=== PATIENT | female | born 1965 | race Caucasian/White ===

== ENCOUNTER → 2016-04-28 | Outpatient (CLI) | payer MEDICARE, MEDICAID ==
[~2016-04-28] MED LIST: /ESCI20TA OR; /INSULEV SC; ABIL10TA OR; ABIL20TA2 OR; ACTO30TA OR; ACTO45TA6 PO; ALBU17IN2 IN; ALBU83IN INH; ASPI325T OR; ASPI81TA3 OR; ATEN25TA PO; BAYE1TAB PO; CALC600T7 PO; CRES40TA OR; DRIS50002 PO; FLEXERIL PO; FLON0.054; GLUC1000 OR; GLUC850T OR; HUMA100I3 SC; HUMALOG INSULIN SC; HUMALOG SC; HUMALOG SUBQ; HYDR25TA6 OR; IBUP800T OR; INSUH10VL INJ; INSUHUMDS SC; K-TA10TA2 PO; KLON1TAB OR; KLOR1TAB69 PO; LAMI25TA OR; LASI20TA OR; LASI20TA PO; LATU1TAB PO; LEXA1TAB2 PO; LIDO1OIN2 TOP; LISI20TA5 OR; LISI40TA OR; MAGN400T5 PO; MAGN500T2 OR; METF1000 PO; OXYB5TA PO; PLAV75TA2 OR; PRAV80TA PO; PRIL40CA PO; RISP2TAB12 OR; RISP3TAB16 OR; TOPA100T8 PO; TRAZ50TA OR; TRIC145T19 OR; TYLE325T5 PO; VALT500T OR; VESI5TAB PO; VICO5TAB16 PO; VICT18IN SC; VITA-121 PO; ZOCO40TA OR; ZOFR20TA PO; ZOLO100T OR; ZYRT10CA PO; [UNRECOGNIZED DRUG - OTHER] INH; levemir SUBQ; magnesium oxide PO; norco PO; vesicare PO
== END ==
LOC: M PAIN 10:40
PROVIDERS: ATTEND Nurse Practitioner Family
DX: M54.42 Lumbago with sciatica, left side (principal); M54.6 Pain in thoracic spine; M53.3 Sacrococcygeal disorders, not elsewhere classified; Z79.891 Long term (current) use of opiate analgesic; Z79.899 Other long term (current) drug therapy; Z79.82 Long term (current) use of aspirin; Z79.84 Long term (current) use of oral hypoglycemic drugs; Z79.4 Long term (current) use of insulin; E11.9 Type 2 diabetes mellitus without complications; E78.5 Hyperlipidemia, unspecified; F32.9 Major depressive disorder, single episode, unspecified; Z86.73 Personal history of transient ischemic attack (TIA), and cerebral infarction without residual deficits; N18.3 Chronic kidney disease, stage 3 (moderate); I12.9 Hypertensive chronic kidney disease with stage 1 through stage 4 chronic kidney disease, or unspecified chronic kidney disease

== ENCOUNTER → 2016-05-10 | Outpatient (REF) | payer MEDICARE, MEDICAID ==
[~2016-05-10] MED LIST changes: +ACET30TAB PO; +COLA100C PO
== END ==
LOC: M SMT 13:21
PROVIDERS: ATTEND Nurse Practitioner Family
DX: N39.3 Stress incontinence (female) (male) (principal)
CPT/HCPCS: 51798; 81001; 87088; 87186; G0463

== ENCOUNTER → 2016-05-13 | Outpatient (REF) | payer MEDICARE, MEDICAID ==
[~2016-05-13] MED LIST changes: -ACET30TAB PO; -COLA100C PO
[2016-05-13 11:43] LABS: ALBUMIN 3.7 GM/DL (3.2-5.2); ALBUMIN/GLOBULIN RATIO 1.03 (1.00-1.93); BILIRUBIN,TOTAL 0.3 MG/DL (0.2-1.0); CALCIUM LEVEL 9.1 MG/DL (8.5-10.1); CREATININE FOR GFR 1.44 MG/DL (0.55-1.02); GLOMERULAR FILTRATION RATE 40.9 (>51); POTASSIUM SERUM 4.3 MEQ/L (3.5-5.1); TOTAL PROTEIN 7.3 GM/DL (6.4-8.2)
== END ==
LOC: M SFHCPLAZ 11:11
PROVIDERS: ATTEND Family Medicine
DX: E78.2 Mixed hyperlipidemia (principal); E55.9 Vitamin D deficiency, unspecified; I10 Essential (primary) hypertension

== ENCOUNTER → 2016-05-16 | Outpatient (CLI) | payer MEDICARE, MEDICAID ==
[~2016-05-16] MED LIST changes: +ACET30TAB PO; +COLA100C PO
--- NOTE | 2016-05-16 08:55 | REP ---
Clinical: Hypertension and chronic medical renal disease. Technique: Farrell scale and color Doppler evaluation of the kidneys and renal vasculature using curved array transducer. Findings: The kidneys are essentially normal in contour size and echogenicity and reniform shape without hydronephrosis, nephrolithiasis, cystic or renal mass lesion. Intrarenal vascular calcifications are identified. Right kidney measures 10.4 x 6.4 x 5.2 cm . Left kidney measures 9.8 x 6.2 x 6.6 cm . Bladder is incompletely distended and grossly normal in appearance. Prevoid volume equals 195 ml. Postvoid volume equals 30 ml. Postvoid residual equals 15%. Color Doppler evaluation is severely limited due to patient body habitus and involuntary respiratory motion during examination. The renal vasculature demonstrates normal arterial wave patterns, and velocities. Aortic velocity and subsequent renal aortic ratios were not obtainable. Intrarenal resistive indices are mildly elevated and suggests small vessel disease. Right Kidney: Peak arterial velocity: 120 cm/sec . Renal aortic ratio: None obtainable . Resistive indices: 0.7 . Acceleration times: 0.03 - 0.04 . Left kidney: Peak arterial velocity: 88.1 cm/sec . Renal aortic ratio: Not obtainable . Resistive indices: 0.7 - 0.8 . Acceleration times: 0.02 - 0.04 . Impression: 1. Normal appearance of the bilateral kidneys. 2. Findings to suggest intra vascular calcifications and small vessel renal disease. 3. Evaluation for renal arterial stenosis is limited and CTA or MRA evaluation may be of value. Signed by Shukri Burris MD 05/16/2016 08:46 A
== END ==
LOC: M RAD 07:15
PROVIDERS: ATTEND Internal Medicine Nephrology
DX: E11.22 Type 2 diabetes mellitus with diabetic chronic kidney disease (principal); I12.9 Hypertensive chronic kidney disease with stage 1 through stage 4 chronic kidney disease, or unspecified chronic kidney disease; N18.3 Chronic kidney disease, stage 3 (moderate); E66.01 Morbid (severe) obesity due to excess calories; N39.3 Stress incontinence (female) (male); F25.1 Schizoaffective disorder, depressive type; F43.10 Post-traumatic stress disorder, unspecified

== ENCOUNTER → 2016-05-20 | Outpatient (CLI) | payer MEDICARE, MEDICAID ==
--- NOTE | 2016-05-24 01:27 | ECWPNPC ---
PATIENT NAME: PRUDENCIO SHAHID : 1965 GENDER: FEMALE VISIT DATE: 05/20/2016 DISCHARGE DATE: 05/20/16 1038 VISIT LOCKED DATE TIME: PHYSICIAN: YULISSA STAUFFER RESOURCE: YULISSA STAUFFER REASON FOR APPOINTMENT 1. LBP HISTORY OF PRESENT ILLNESS GENERAL: HERE FOR F/U OF CHRONIC LBP AND THORACIC BACK PAIN .RATING PAIN VAS 6/10.REPORTING AGGREVATION IN LBP R>L PAST 3 WEEKS.REPORTING NEW ONSET OF LEFT LEG/CALF PAIN AND PARATHESIAS.STATES SHE HAS BEEN DOING SOME NEW EXCERSISES FOR HER HEEL SPURS AND SHE THINK THIS MAY HAVE AGGREVATED PAIN.REVIEWED MRI L/S SPINE 11-06-14.THIS IS SHOWING MULTI LEVEL FACET ARTHROPATHY.DENIES BOWEL OR BLADDER INCONTINENECE.REPORTS RECENT 5# WEIGHT LOSS DUE TO DIET CONTROL AND INCREASE IN EXCERSISE. HISTORY OF PRESENT ILLNESS: PAIN THE PATIENT DESCRIBES THE PAIN... FALL RISK SCREENING: SCREENING :NO FALLS IN THE PAST YEAR CURRENT MEDICATIONS TAKING FENOFIBRATE 48 MG TABLET 1 TABLET ORALLY ONCE A DAY TAKING PRAVASTATIN SODIUM 40 MG TABLET 1 TABLET ORALLY ONCE A DAY TAKING CIPROFLOXACIN HCL 250 MG TABLET 1 TABLET ORALLY EVERY 12 HRS TAKING LAMICTAL 100 MG TABLET 1 TABLET ORALLY TWICE DAILY TAKING LATUDA 80 MG TABLET 1 TABLET WITH FOOD ORALLY ONCE A DAY TAKING ESCITALOPRAM OXALATE 20 MG TABLET 1 TABLET ORALLY ONCE A DAY TAKING HUMALOG 100 UNIT/ML SOLUTION SLIDING SCALE, IF BLOOD SUGAR IS 150 PT TAKES 10 UNITS, IF IT IS HIGHER THAN THAT 12 UNITS SUBCUTANEOUS SLIDING SCALE, MDD 24 UNITS TAKING POTASSIUM CHLORIDE 10 10 MEQ TABLET 1 TABLET ORAL ONCE A DAY TAKING MAGNESIUM OXIDE 400 MG TABLET 1 TABLET ORALLY ONCE A DAY TAKING TOPAMAX 100 100MG TABLET 1 TAB(S) ORALLY TWICE A DAY (MIRA) TAKING ALBUTEROL SULFATE (2.5 MG/3ML) 0.083% NEBULIZATION SOLUTION 3 ML INHALATION QID PRN TAKING LEVEMIR FLEXPEN 100 UNIT/ML SOLUTION 16 UNITS SUBCUTANEOUS TWICE A DAY TAKING ACTOS 45MG TABLET 1 TABLET ORALLY ONCE A DAY TAKING LISINOPRIL 20 MG TABLET 1 TABLET ORALLY ONCE A DAY TAKING PLAVIX 75 MG TABLET 1 TABLET ORALLY ONCE A DAY TAKING COLACE 100 MG CAPSULE 1 CAPSULE NEEDED ORALLY ONCE A DAY TAKING VICTOZA 18 MG/3ML SOLUTION PEN-INJECTOR 1.8 ML SUBCUTANEOUS ONCE A DAY TAKING ZYRTEC ALLERGY 10 MG TABLET 1 TABLET NEEDED ORALLY ONCE A DAY TAKING VITAMIN D 1000 UNIT TABLET 1 CAPSULE P.O. TWICE A DAY TAKING CLOBETASOL PROPIONATE 0.05 % CREAM 1 APPLICATION TO AFFECTED AREA EXTERNALLY TWICE A DAY NEEDED TAKING FLONASE 50 MCG/ACT SUSPENSION 1 SPRAY IN EACH NOSTRIL NASALLY ONCE A DAY TAKING AMLODIPINE BESYLATE 2.5 MG TABLET 1 TABLET ORALLY ONCE A DAY TAKING ATENOLOL 50 MG TABLET 1 TABLET ORALLY ONCE A DAY TAKING LASIX 20 MGS TABLET 1 TABLET ORALLY ONCE A DAY TAKING PRILOSEC 40 MG CAPSULE DELAYED RELEASE 1 CAPSULE ORALLY ONCE A DAY TAKING ESCITALOPRAM OXALATE 5 MG TABLET 1 TABLET ORALLY TAKES WITH 20 MG TAB FOR A TOTAL OF 25MG DAILY, NOTES: 02/02/16 0900 TAKING CALCIUM 600 + D 600-400 MG-UNIT TABLET 1 TABLET ORALLY ONCE A DAY TAKING TYLENOL/CODEINE #3 300-30 MG TABLET 1 ORALLY EVERY 6 HRS PRN PAIN MDD3 TAKING LIDOCAINE 5 % OINTMENT 1 APPLICATION TO AFFECTED AREA NEEDED EXTERNALLY THREE TIMES A DAY, NOTES: INSURANCE WILL NOT BE COVERING TAKING DRISDOL 50,000 UNITS TABLET 1 TAB(S) ORAL TWICE A WEEK NOT-TAKING ASPIRIN 325 MG TABLET 1 TABLET ORALLY ONCE A DAY NOT-TAKING ZOFRAN 4 MG TABLET 1 TAB(S) ORALLY TWICE A DAY NEEDED DISCONTINUED OXYBUTYNIN CHLORIDE 10 MG TABLET EXTENDED RELEASE 24 HOUR 1 TABLET ORALLY ONCE A DAY DISCONTINUED FENOFIBRATE 145 MG TABLET 1 TABLET ORALLY ONCE A DAY DISCONTINUED ATORVASTATIN CALCIUM 40 MG TABLET 1 TABLET ORALLY ONCE A DAY DISCONTINUED METFORMIN HCL 1000 MG TABLET 1 TABLET WITH MEALS ORALLY TWICE A DAY UNKNOWN INSULIN SYRINGE-NEEDLE U-100 27G X 1/2 MISCELLANEOUS DX 250.00 SUBCUTANEOUSLY BID UNKNOWN MAY HAVE . .. DIRECTED RUSSEL DX: LEFT SCIATICA, LUMBAR PAIN, STOP DATE 03/30/2023 UNKNOWN PHYSICAL THERAPY EVALUATE AND TREAT PHYSICAL THERAPY DIRECTED DX: CERVALGIA, TRAPZEZIUS PAIN, SCAPULAR DYSKENESIA 1-3X/WEEK MEDICATION LIST REVIEWED AND RECONCILED WITH THE PATIENT PAST MEDICAL HISTORY HYPERLIPIDEMIA DIABETES MELLITUS - WITH NON-PROLIFERATIVE RETINOPATHY LEFT EYE PER CENTER FOR SIGHT 06/2013. 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) CKD STAGE 3 HTN SLIGHTLY REDUCED KIDNEY FUNCTION ALLERGIES SEASONAL: NASAL CONGESTION: ALLERGY SOCIAL HISTORY GENERAL: TOBACCO USE ARE YOU A:NONSMOKER LEARNING BARRIERS / SPECIAL NEEDS ORIENTED TO PLAN OF CARE: PATIENT, PAIN MANAGEMENT PATIENT, ORIENTED TO PLAN OF CARE: PATIENT, PAIN MANAGEMENT PATIENT. NEW PATIENT PAIN DIARY TODAY'S VISITNOTES FROM 0-10, WHAT LEVEL IS YOUR PAIN TODAY?0 PAIN CLINIC PFS, CLERGY, PUBLIC HEALTH REFERRALS PFS REFERRAL NEEDED?NO CLERGY REFERRAL NEEDED?NO PUBLIC HEALTH REFERRAL NEEDED?NO WAS THE PROVIDER NOTIFIED OF ANY PERTINENT INFO?NO PFS REFERRAL NEEDED?NO CLERGY REFERRAL NEEDED?NO PUBLIC HEALTH REFERRAL NEEDED?NO WAS THE PROVIDER NOTIFIED OF ANY PERTINENT INFO?NO REVIEW OF SYSTEMS CONSTITUTIONAL: ANY CHANGE IN YOUR MEDICAL CONDITION? YES CKD STAGE 3 . CHILLS NO . FEVER NO . INFECTION: DO YOU HAVE NEW INFECTIONS? NO . DO YOU HAVE HISTORY OF MRSA? NO . MUSCULOSKELETAL: ANY NEW PATTERNS OF PAIN OR NUMBNESS? YES PT NOTES NUMBNESS AND DISCOMFORT OUTER LEFT LEG X 1WEEK . GASTROENTEROLOGY: ANY NEW CHANGE IN BOWEL CONTROL? NO . GENITOURINARY: ANY NEW CHANGE IN BLADDER CONTROL? NO . IS THERE A CHANCE YOU COULD BE ? NO . HEMATOLOGY/LYMPH: DO YOU TAKE ANY BLOOD THINNERS? (FOR EXAMPLE- COUMADIN, PLAVIX, AGGRENOX, PLATEL, PRADAXA, OR XARELTO) YES PLAVIX . WHEN WAS YOUR LAST DOSE? DATE: TIME: . NEUROLOGY: HAVE YOU FALLEN IN THE PAST 6 MONTHS? NO . ANY NEW EXTREMITY NUMBNESS OR WEAKNESS? NO . CARDIOLOGY: DO YOU HAVE A PACEMAKER OR DEFIBRILLATOR? NO . RESPIRATORY: HAVE YOU BEEN SICK IN THE PAST WEEK? NO . FEVER NO . FLU LIKE SYMPTOMS? NO . COUGH NO . INTEGUMENTARY: DO YOU HAVE ANY RASHES OR OPEN SORES? NO . ALLERGIC/IMMUNO: ARE YOU ALLERGIC TO SHELLFISH OR IV DYE? NO . ANY NEW ALLERGIES? NO . PSYCHIATRIC: DO YOU HAVE THOUGHTS OF HURTING YOURSELF OR SOMEONE ELSE? NO . ARE YOU ABUSED, NEGLECTED, OR IN AN UNSAFE ENVIRONMENT? NO . ENDOCRINOLOGY: ARE YOU DIABETIC? YES . OTHER: DO YOU NEED ANY PRESCRIPTIONS? NO . IF YES, PLEASE LIST: ____ . ANY NEW PROBLEMS WITH YOUR MEDICATIONS? NO . WHEN DID YOU LAST EAT? ____ . WHEN DID YOU LAST DRINK? ____ . WHAT DID YOU LAST DRINK? ____ . NAME OF PERSON DRIVING YOU HOME? ____ . DO YOU HAVE ANY OTHER QUESTIONS OR CONCERNS YES ? INJECTION . REVIEWED BY: PROVIDER: YULISSA RASHID . VITAL SIGNS WT 239.6 LBS, HT 64.25 IN, BMI 40.80 INDEX, BP 160/90 MM HG, HR 80 /MIN, RR 16 /MIN, TEMP 98.4 F, OXYGEN SAT % 95%, NA INITIALS SC 09:27, REVIEWED BY: MLF. EXAMINATION GENERAL EXAMINATION: LUNGS:LUNG SOUNDS ARE CLEAR. HEART:HEART RATE REGULAR. MUSCULOSKELETAL:*, MUSCLE STRENGTH TESTING 5/5 BILATERAL, PALPATION: POSITIVE FOR PAIN OVER L/S SPINE. POSITIVE FOR PAIN OVER L/S PARSPINALS.POSITIVE FOR PAIN OVER BILAT. SIJ, PALPATION: POSITIVE FOR PAIN OVER RIGHT MID THRACIC FACETS.LARGE 6INCH CIRCULAR WELL HEALED INCISON UPPER THORACIC.. DIAGNOSTIC DATA-REVIEWED THORACIC MRI AND L/S MRI. ASSESSMENTS CHRONIC BILATERAL LOW BACK PAIN WITH BILATERAL SCIATICA - M54.42 (PRIMARY) CHRONIC MIDLINE THORACIC BACK PAIN - M54.6 SACROILIAC JOINT DYSFUNCTION OF RIGHT SIDE - M53.3 TREATMENT CHRONIC BILATERAL LOW BACK PAIN WITH BILATERAL SCIATICA LUMBAR FACET THERAPEUTIC NOTES: STOP PLAVIX X 7 DAYS AND SCHEDULE DAY 8,FACET JOINT INJECTION MATERIAL WAS PRINTED,FACET JOINT INJECTION: YOUR EXPERIENCE MATERIAL WAS PRINTED. PROCEDURE CODES FA211 ESTABILISHED PATIENT [facility] FACILITY CHARGE Q7698 PAIN ASSESS POS TOOL F/U PLAN DOC G8427 DOC MEDS VERIFIED W/PT OR RE G1210 BP SCR PRFRM RCMDD DEFIND SCR INTVL 3016F PT SCRND UNHLTHY OH USE 1124F ACP DISCUSS-NO DSCNMKR DOCD 1036F TOBACCO NON-USER 0518F FALL PLAN OF CARE DOCD G8417 BMI >=30 CALCUATE W/FOLLOWUP 3288F FALL RISK ASSESSMENT DOCD DISPOSITION & COMMUNICATION FOLLOW UP 2WK POST PROC. (REASON: BILAT.L4/5-L5/S1 THERAPEUTIC FACET BLOCK) ELECTRONICALLY SIGNED BY GAY ZUNIGA ON 05/23/2016 AT 01:35 PM EST DISCLAIMER : THIS IS A VISIT SUMMARY EXTRACTED FROM THE [employer] CHART. IT IS NOT A COPY OF THE [employer] PROGRESS NOTE. MARYLOU
== END ==
LOC: M PAIN 09:20
PROVIDERS: ATTEND Nurse Practitioner Family
DX: M54.42 Lumbago with sciatica, left side (principal); M54.6 Pain in thoracic spine; M53.3 Sacrococcygeal disorders, not elsewhere classified; G89.29 Other chronic pain; E78.2 Mixed hyperlipidemia; I12.9 Hypertensive chronic kidney disease with stage 1 through stage 4 chronic kidney disease, or unspecified chronic kidney disease; E11.22 Type 2 diabetes mellitus with diabetic chronic kidney disease; N18.3 Chronic kidney disease, stage 3 (moderate); E55.9 Vitamin D deficiency, unspecified

== ENCOUNTER → 2016-05-24 | Outpatient (RCR) | payer MEDICARE, MEDICAID | LOC: M PT 08:18 | PROVIDERS: ATTEND Physician Assistant | DX: Z51.89 Encounter for other specified aftercare (principal); M54.2 Cervicalgia; G24.9 Dystonia, unspecified | CPT/HCPCS: 97162; G8978; G8979 ==

== ENCOUNTER 2016-05-27 09:44 | Emergency (ER) | payer MEDICARE, MEDICAID ==
[~2016-05-27] VITALS: Ht 152.4 cm; Wt 109.0 kg
[~2016-05-27 09:44] MED LIST changes: -ACET30TAB PO; -COLA100C PO
[2016-05-27] MEDS ORDERED: ACET30TAB PO (10:06)
[2016-05-27] MEDS ORDERED: COLA100C PO (10:06)
[2016-05-27] MEDS ORDERED: ONDANSETRON 4MG/2ML VIAL (J2405) IV ONE (11:30)
[2016-05-27] MEDS ORDERED: MORPHINE 4 MG/ML 1ML SYRINGE IV ONE (11:30)
[2016-05-27] MEDS ORDERED: SODIUM CHLORIDE 0.9% 1000 ML IV SCH (11:30)
[2016-05-27 11:59] LABS: BASO # 0.1 K/mm3 (0.0-0.2); BASO % 0.6 % (0.0-1.0); CALCIUM LEVEL 9.1 MG/DL (8.5-10.1); CREATININE FOR GFR 1.3 MG/DL (0.55-1.02); EOS # 0.2 K/mm3 (0.0-0.50); EOS % 2.8 % (0.0-3.0); LARGE UNSTAINED CELL # 0.1 K/mm3 (0.0-0.4); LYMPH # 1.8 K/mm3 (1.5-4.5); LYMPH % 20.1 % (24.0-44.0); MEAN CORPUSCULAR HEMOGLOBIN 27.5 pg (27.0-33.0); MEAN CORPUSCULAR VOLUME 83.4 fl (80.0-96.0); MONO # 0.3 K/mm3 (0.0-0.8); MONO % 3.3 % (0.0-5.0); NEUTROPHILS # 6.3 K/mm3 (1.8-7.7); NEUTROPHILS % 72.2 % (36.0-66.0); PLATELET COUNT, AUTOMATED 276 k/mm3 (150-450); POTASSIUM SERUM 3.9 MEQ/L (3.5-5.1); RED CELL DISTRIBUTION WIDTH 13.1 % (11.5-14.5); WHITE BLOOD COUNT 8.7 K/mm3 (4.0-10.0)
[2016-05-27 12:03] LABS: ALBUMIN 3.7 GM/DL (3.2-5.2); ALKALINE PHOSPHATASE 113 U/L (45-117); ALT/SGPT 19 U/L (12-78); AST/SGOT 16 U/L (15-37); BILIRUBIN,DIRECT < 0.1 MG/DL (0.0-0.2); BILIRUBIN,TOTAL 0.3 MG/DL (0.2-1.0); TOTAL PROTEIN 7.8 GM/DL (6.4-8.2)
[2016-05-27] MEDS ORDERED: ISOVUE-370 76% 100ML VIAL (Q9967) As Ordered ONE (12:07)
--- NOTE | 2016-05-27 14:15 | REP ---
CT ABDOMEN/PELVIS WITH IV CONTRAST: TECHNIQUE: Axial contrast enhanced images from the lung bases to the pubic symphysis using 100 mL Isovue 370 intravenous contrast material with multiplanar reformations. Visualized lung bases demonstrate no consolidating infiltrate. The liver demonstrates no evidence of a suspicious mass. There is no biliary dilatation. There appears to be a small, subcentimeter gallstone in the dependent portion of the gallbladder. The spleen, adrenals, pancreas, and kidneys are unremarkable in appearance. There are moderate atherosclerotic calcifications of the abdominal aorta without aneurysm. There is no adenopathy. There is no free air or free fluid. There is no bowel wall thickening. There is no evidence of appendicitis. There is no pelvic mass. There are degenerative changes of the spine. IMPRESSION: Subcentimeter gallstone in the gallbladder. No acute finding. Signed by Michael Farrell MD 05/27/2016 08:33 P
[2016-05-27 14:20] VITALS: BP 177/104
--- NOTE | 2016-05-27 14:41 | REP ---
RIGHT UPPER QUADRANT ULTRASOUND: Real-time sonographic evaluation of right upper quadrant performed. There is a small gallstone in the neck of the gallbladder. There is no gallbladder wall thickening. There is no pericholecystic fluid. There is no intrahepatic or extrahepatic biliary dilatation, common bile duct measuring 3 mm in diameter. Survey images of the liver demonstrate somewhat heterogeneous echotexture suggesting some degree of fibrofatty infiltration. No gross liver or pancreatic mass is seen. Pancreas is not well seen due to overlying bowel gas. Right kidney demonstrates no hydronephrosis or nephrolithiasis with normal size at 10.7 cm in length. IMPRESSION: Subcentimeter gallstone seen in the neck of the gallbladder. No gallbladder wall thickening or pericholecystic fluid or biliary dilatation. Signed by Michael Farrell MD 05/27/2016 08:34 P
== END 2016-05-27 14:31 | disposition home or self-care (01) ==
LOC: M ED 10:48
DX: K80.20 Calculus of gallbladder without cholecystitis without obstruction (principal); R10.11 Right upper quadrant pain; R10.13 Epigastric pain; I10 Essential (primary) hypertension; J45.909 Unspecified asthma, uncomplicated; G43.909 Migraine, unspecified, not intractable, without status migrainosus; E78.9 Disorder of lipoprotein metabolism, unspecified; Z86.73 Personal history of transient ischemic attack (TIA), and cerebral infarction without residual deficits; Z87.891 Personal history of nicotine dependence
CPT/HCPCS: 36415; 74177; 76705; 80048; 80076; 81001; 83690; 85025; 96374; 96375; 99283; J2405; Q9967

== ENCOUNTER → 2016-06-08 | Outpatient (REF) | payer MEDICARE, MEDICAID ==
[~2016-06-08] MED LIST changes: +ACET30TAB PO; +COLA100C PO
== END ==
LOC: M SMT 11:48
PROVIDERS: ATTEND Nurse Practitioner Family
DX: N39.3 Stress incontinence (female) (male) (principal); Z87.440 Personal history of urinary (tract) infections
CPT/HCPCS: 51798; 87086; G0463

== ENCOUNTER → 2016-06-14 | Outpatient (CLI) | payer MEDICARE, MEDICAID ==
[~2016-06-14] MED LIST changes: +BUPIVACAINE HCL 0.25% 30 ML VIAL As Ordered ONE; +ISOVUE-M 300 61% 15ML VIAL (Q9967) As Ordered ONE; +LIDOCAINE 1% SDV INJ 30 ML VIAL As Ordered ONE; +TRIAMCINOLONE ACETONIDE SUSP 40 MG/ML VIAL (J3301) As Ordered ONE; +diazePAM 5 MG TAB As Ordered ONE; +oxyCODONE 5MG TAB As Ordered ONE
--- NOTE | 2016-06-14 13:04 | REP ---
Partial lumbar spine series: Four views. History: Facet block for pain. 57 seconds of fluoroscopy time is reported. Findings: A sequence of four fluoroscopically obtained last image hold spot radiographs lumbar spine document various needle positions associated with bilateral facet injection procedures. Signed by Doug Shane MD 06/14/2016 03:01 P
--- NOTE | 2016-06-16 00:14 | ECWPNPC ---
PATIENT NAME: PRUDENCIO SHAHID : 1965 GENDER: FEMALE VISIT DATE: 06/14/2016 DISCHARGE DATE: 06/14/16 1107 VISIT LOCKED DATE TIME: PHYSICIAN: PANDA SO RESOURCE: PANDA SO REASON FOR APPOINTMENT 1. BILAT THER FACET BLOCK HISTORY OF PRESENT ILLNESS HISTORY OF PRESENT ILLNESS: PAIN THE PATIENT DESCRIBES THE PAIN... FALL RISK SCREENING: SCREENING :NO FALLS IN THE PAST YEAR CURRENT MEDICATIONS TAKING FENOFIBRATE 48 MG TABLET 1 TABLET ORALLY ONCE A DAY, NOTES: 06/13/162099 TAKING PRAVASTATIN SODIUM 40 MG TABLET 1 TABLET ORALLY ONCE A DAY, NOTES: 06/13/162099 TAKING LAMICTAL 100 MG TABLET 1 TABLET ORALLY TWICE DAILY, NOTES: 06/14/16599 TAKING LATUDA 80 MG TABLET 1 TABLET WITH FOOD ORALLY ONCE A DAY, NOTES: 06/14/162099 TAKING ESCITALOPRAM OXALATE 20 MG TABLET 1 TABLET ORALLY ONCE A DAY, NOTES: 06/14/16599 TAKING HUMALOG 100 UNIT/ML SOLUTION SLIDING SCALE, IF BLOOD SUGAR IS 150 PT TAKES 10 UNITS, IF IT IS HIGHER THAN THAT 12 UNITS SUBCUTANEOUS SLIDING SCALE, MDD 24 UNITS, NOTES: 06/13/16 170 TAKING POTASSIUM CHLORIDE 10 10 MEQ TABLET 1 TABLET ORAL ONCE A DAY, NOTES: 06/14/16 1600 TAKING MAGNESIUM OXIDE 400 MG TABLET 1 TABLET ORALLY ONCE A DAY, NOTES: 06/14/16 06 TAKING ALBUTEROL SULFATE (2.5 MG/3ML) 0.083% NEBULIZATION SOLUTION 3 ML INHALATION QID PRN, NOTES: > 1 MONTH TAKING LEVEMIR FLEXPEN 100 UNIT/ML SOLUTION 16 UNITS SUBCUTANEOUS TWICE A DAY, NOTES: 06/13/16 1700 TAKING ACTOS 45MG TABLET 1 TABLET ORALLY ONCE A DAY, NOTES: 06/14/16 06 TAKING LISINOPRIL 20 MG TABLET 1 TABLET ORALLY ONCE A DAY, NOTES: 06/14/16 06 TAKING PLAVIX 75 MG TABLET 1 TABLET ORALLY ONCE A DAY, NOTES: 06/05/16 0800 TAKING COLACE 100 MG CAPSULE 1 CAPSULE NEEDED ORALLY ONCE A DAY, NOTES: 06/12/16 0800 TAKING VICTOZA 18 MG/3ML SOLUTION PEN-INJECTOR 1.8 ML SUBCUTANEOUS ONCE A DAY, NOTES: 06/13/16 1200 TAKING ZYRTEC ALLERGY 10 MG TABLET 1 TABLET NEEDED ORALLY ONCE A DAY, NOTES: 06/14/16599 TAKING CLOBETASOL PROPIONATE 0.05 % CREAM 1 APPLICATION TO AFFECTED AREA EXTERNALLY TWICE A DAY NEEDED, NOTES: 06/13/162099 TAKING FLONASE 50 MCG/ACT SUSPENSION 1 SPRAY IN EACH NOSTRIL NASALLY ONCE A DAY, NOTES: 06/13/162099 TAKING AMLODIPINE BESYLATE 2.5 MG TABLET 1 TABLET ORALLY ONCE A DAY, NOTES: 06/14/16599 TAKING ATENOLOL 50 MG TABLET 1 TABLET ORALLY ONCE A DAY, NOTES: 06/14/16599 TAKING LASIX 20 MGS TABLET 1 TABLET ORALLY ONCE A DAY, NOTES: 06/14/16599 TAKING ESCITALOPRAM OXALATE 5 MG TABLET 1 TABLET ORALLY TAKES WITH 20 MG TAB FOR A TOTAL OF 25MG DAILY, NOTES: 06/14/16599 TAKING CALCIUM 600 + D 600-400 MG-UNIT TABLET 1 TABLET ORALLY ONCE A DAY, NOTES: 06/14/16599 TAKING TYLENOL/CODEINE #3 300-30 MG TABLET 1 ORALLY EVERY 6 HRS PRN PAIN MDD3, NOTES: 06/13/162099 TAKING LIDOCAINE 5 % OINTMENT 1 APPLICATION TO AFFECTED AREA NEEDED EXTERNALLY THREE TIMES A DAY, NOTES: INSURANCE WILL NOT BE COVERING TAKING DRISDOL 50,000 UNITS TABLET 1 TAB(S) ORAL TWICE A WEEK, NOTES: 06/12/162099 TAKING PRILOSEC 40 MG CAPSULE DELAYED RELEASE 1 CAPSULE ORALLY ONCE A DAY, NOTES: 06/14/16599 TAKING RANITIDINE HCL 150 MG CAPSULE 1 TAB ORALLY TWICE A DAY, NOTES: 06/14/16599 NOT-TAKING TOPAMAX 100 100MG TABLET 1 TAB(S) ORALLY TWICE A DAY (MIRA) NOT-TAKING VITAMIN D 1000 UNIT TABLET 1 CAPSULE P.O. TWICE A DAY MEDICATION LIST REVIEWED AND RECONCILED WITH THE PATIENT PAST MEDICAL HISTORY HYPERLIPIDEMIA DIABETES MELLITUS - WITH NON-PROLIFERATIVE RETINOPATHY LEFT EYE PER CENTER FOR SIGHT 06/2013. 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 SO [facility]) CKD STAGE 3 HTN SLIGHTLY REDUCED KIDNEY FUNCTION ALLERGIES SEASONAL: NASAL CONGESTION: ALLERGY PEPTO BISMOL: THROAT SWELLS: ALLERGY SOCIAL HISTORY GENERAL: TOBACCO USE ARE YOU A:NONSMOKER LEARNING BARRIERS / SPECIAL NEEDS ORIENTED TO PLAN OF CARE: PATIENT, PAIN MANAGEMENT PATIENT, ORIENTED TO PLAN OF CARE: PATIENT, PAIN MANAGEMENT PATIENT. NEW PATIENT PAIN DIARY TODAY'S VISITNOTES FROM 0-10, WHAT LEVEL IS YOUR PAIN TODAY?0 PAIN CLINIC PFS, CLERGY, PUBLIC HEALTH REFERRALS PFS REFERRAL NEEDED?NO CLERGY REFERRAL NEEDED?NO PUBLIC HEALTH REFERRAL NEEDED?NO WAS THE PROVIDER NOTIFIED OF ANY PERTINENT INFO?NO PFS REFERRAL NEEDED?NO CLERGY REFERRAL NEEDED?NO PUBLIC HEALTH REFERRAL NEEDED?NO WAS THE PROVIDER NOTIFIED OF ANY PERTINENT INFO?NO REVIEW OF SYSTEMS CONSTITUTIONAL: ANY CHANGE IN YOUR MEDICAL CONDITION? NO . CHILLS NO . FEVER NO . INFECTION: DO YOU HAVE NEW INFECTIONS? NO . DO YOU HAVE HISTORY OF MRSA? NO . MUSCULOSKELETAL: ANY NEW PATTERNS OF PAIN OR NUMBNESS? NO . GASTROENTEROLOGY: ANY NEW CHANGE IN BOWEL CONTROL? NO . GENITOURINARY: ANY NEW CHANGE IN BLADDER CONTROL? NO . IS THERE A CHANCE YOU COULD BE ? NO . HEMATOLOGY/LYMPH: DO YOU TAKE ANY BLOOD THINNERS? (FOR EXAMPLE- COUMADIN, PLAVIX, AGGRENOX, PLATEL, PRADAXA, OR XARELTO) NO . WHEN WAS YOUR LAST DOSE? DATE: TIME: . NEUROLOGY: HAVE YOU FALLEN IN THE PAST 6 MONTHS? NO . ANY NEW EXTREMITY NUMBNESS OR WEAKNESS? NO . CARDIOLOGY: DO YOU HAVE A PACEMAKER OR DEFIBRILLATOR? NO . RESPIRATORY: HAVE YOU BEEN SICK IN THE PAST WEEK? NO . FEVER NO . FLU LIKE SYMPTOMS? NO . COUGH NO . INTEGUMENTARY: DO YOU HAVE ANY RASHES OR OPEN SORES? NO . ALLERGIC/IMMUNO: ARE YOU ALLERGIC TO SHELLFISH OR IV DYE? NO . ANY NEW ALLERGIES? NO . PSYCHIATRIC: DO YOU HAVE THOUGHTS OF HURTING YOURSELF OR SOMEONE ELSE? NO . ARE YOU ABUSED, NEGLECTED, OR IN AN UNSAFE ENVIRONMENT? NO . ENDOCRINOLOGY: ARE YOU DIABETIC? NO . OTHER: DO YOU NEED ANY PRESCRIPTIONS? NO . IF YES, PLEASE LIST: ____ . ANY NEW PROBLEMS WITH YOUR MEDICATIONS? NO . WHEN DID YOU LAST EAT? ____06/14/16 0100 . WHEN DID YOU LAST DRINK? ____3/21/17 0600 . WHAT DID YOU LAST DRINK? ____WATER . NAME OF PERSON DRIVING YOU HOME? ____[employer] . DO YOU HAVE ANY OTHER QUESTIONS OR CONCERNS NO . REVIEWED BY: PROVIDER: . VITAL SIGNS WT 240 LBS, HT 64.25 IN, BMI 40.87 INDEX, BP 154/86 MM HG, HR 72 /MIN, RR 16 /MIN, TEMP 98.0 F, OXYGEN SAT % 96%, BLOOD GLUCOSE LEVEL 113 THIS AM, SAFE IN ENV? (Y/N) YES, NA INITIALS MO 09:10, REVIEWED BY: ROBERTA. ASSESSMENTS SPONDYLOSIS WITHOUT MYELOPATHY OR RADICULOPATHY, LUMBAR REGION - M47.816 (PRIMARY) SPONDYLOSIS WITHOUT MYELOPATHY OR RADICULOPATHY, LUMBOSACRAL REGION - M47.817 PROCEDURES PN LUMBAR FACET BLOCK THERAPEUTIC PRE PROCEDURE DIAGNOSIS : LUMBAR SPONDYLOSIS, LUMBOSACRAL SPONDYLOSIS POST PROCEDURE DIAGNOSIS : LUMBAR SPONDYLOSIS, LUMBOSACRAL SPONDYLOSIS PROCEDURE BILATERAL L4-L5 AND BILATERAL L5-S1 LUMBAR FACET THERAPEUTIC BLOCK SURGEON DR. PANDA SO CHIEF COMPLIANCE OFFICER NONE ANESTHESIA LOCAL PRE PROCEDURE NOTE THE PATIENT HAS A HISTORY OF CHRONIC LOW BACK PAIN. I EVALUATE THE PATIENT AND REVIEWED THE CHART. I WENT OVER THE RISKS, ALTERNATIVES, AND BENEFITS ASSOCIATED WITH THIS PROCEDURE. THE PATIENT WOULD LIKE TO PROCEED AND GIVE CONSENT TO PERFORMED THE PROCEDURE. THE PATIENT DENIES UNEXPLAINABLE WEIGHT LOSS, FEVER, CHILLS, OR NEW CHANGES IN URINARY OR BOWEL CONTROL DESCRIPTION OF PROCEDURE THE PATIENT WAS BROUGHT TO THE PROCEDURE ROOM AND PLACED IN THE PRONE POSITION. THE LUMBOSACRAL AREA WAS CLEANED WITH CHLORAPREP SOLUTION AND DRAPED ASEPTICALLY. THE PROCEDURE WAS DONE UNDER STERILE CONDITIONS. I CHECKED LATERALITY AND THE LEVEL WHERE THE PROCEDURE WAS GOING TO BE PERFORMED WITH THE PATIENT AND THE SUPPORTING STAFF AT THE MOMENT OF THE TIME OUT IN THE PROCEDURE ROOM. UNDER FLUOROSCOPIC GUIDANCE, THE TARGET POINT WAS SELECTED AT THE RIGHT AND LEFT L4-L5 AND RIGHT AND LEFT L5-S1 FACET JOINT. TARGET POINT WAS SELECTED AFTER LATERAL ROTATION AND TILT OF THE MAGNIFIER OF THE C-ARM. LIDOCAINE 0.5% WAS USED TO NUMB THE SKIN AND THE SUBCUTANEOUS TISSUE BELOW IT. SPINAL NEEDLES, 22-GAUGE, WERE ADVANCED UNDER FLUOROSCOPIC GUIDANCE AND FOLLOWING PATIENT FEEDBACK UNTIL THE TARGETS WERE TOUCHED. THE POSITION OF THE NEEDLES WAS VERIFIED WITH AP AND LATERAL VIEWS. AFTER PROPER POSITION OF THE NEEDLES WAS ACHIEVED, ISOVUE-M DYE 30% 0.1 ML WAS INJECTED SHOWING ADEQUATE SPREAD OF THE DYE. THEN A SOLUTION OF 1.9 ML OF BUPIVACAINE 0.125% OF KENALOG 10 MG WAS INJECTED AT EACH SITE. THERE WAS NO EVIDENCE OF BLOOD, PARESTHESIA OR CEREBROSPINAL FLUID DURING THE PROCEDURE. THE PATIENT WAS SENT TO THE RECOVERY ROOM. THE PATIENT WAS MOVING THE EXTREMITIES AND DOING WELL. THERE WAS NO COMPLICATION DURING THE PROCEDURE. FLUOROSCOPY TIME WAS 57 SECONDS POST PROCEDURE NOTE THE PATIENT WILL BE SEEN IN A FOLLOW UP IN THE NEXT FEW WEEKS. INSTRUCTIONS WERE GIVEN, QUESTIONS WERE ANSWERED, AND THE PATIENT EXPRESSED UNDERSTANDING AND AGREES WITH THE PLAN. I, MARCUS HUBER, DOCUMENTED THE ABOVE INFORMATION ACTING A SCRIBE FOR DR. SO. I, DR. SO, HAVE REVIEWED THE ABOVE DOCUMENT, SCRIBED BY MARCUS HUBER, AND I VERIFY THAT IT IS ACCURATE DIAGNOSTIC IMAGING [facility] FACET BLOCK (PAIN)[id number] PROCEDURE CODES 33493 INJ PARAVERT F JNT L/S 1 LEV 51673 INJ PARAVERT F JNT L/S 2 LEV 6045F RADXPS IN END [id number] PXD DISPOSITION & COMMUNICATION FOLLOW UP 3 WEEKS ELECTRONICALLY SIGNED BY PANDA SO MD ON 06/15/2016 AT 08:39 PM EDT DISCLAIMER : THIS IS A VISIT SUMMARY EXTRACTED FROM THE [employer] CHART. IT IS NOT A COPY OF THE [employer] PROGRESS NOTE. MTDD
== END ==
LOC: M PAIN 09:00
PROVIDERS: ATTEND Anesthesiology
DX: G89.29 Other chronic pain (principal); M47.816 Spondylosis without myelopathy or radiculopathy, lumbar region; M47.817 Spondylosis without myelopathy or radiculopathy, lumbosacral region; M54.42 Lumbago with sciatica, left side; M54.6 Pain in thoracic spine; Z79.891 Long term (current) use of opiate analgesic; Z79.899 Other long term (current) drug therapy; Z79.4 Long term (current) use of insulin; E11.22 Type 2 diabetes mellitus with diabetic chronic kidney disease; N18.3 Chronic kidney disease, stage 3 (moderate); I10 Essential (primary) hypertension; E78.2 Mixed hyperlipidemia
CPT/HCPCS: 64493; 64494; J3301; Q9967

== ENCOUNTER → 2016-06-17 | Outpatient (REF) | payer MEDICARE, MEDICAID ==
[~2016-06-17] MED LIST changes: -BUPIVACAINE HCL 0.25% 30 ML VIAL As Ordered ONE; -ISOVUE-M 300 61% 15ML VIAL (Q9967) As Ordered ONE; -LIDOCAINE 1% SDV INJ 30 ML VIAL As Ordered ONE; -TRIAMCINOLONE ACETONIDE SUSP 40 MG/ML VIAL (J3301) As Ordered ONE; -diazePAM 5 MG TAB As Ordered ONE; -oxyCODONE 5MG TAB As Ordered ONE
[2016-06-17 19:35] LABS: BASO % 0.3 % (0.0-1.0); EOS # 0.1 K/mm3 (0.0-0.50); LARGE UNSTAINED CELL # 0.1 K/mm3 (0.0-0.4); LARGE UNSTAINED CELL % 0.4 % (0.0-4.0); LYMPH # 1.8 K/mm3 (1.5-4.5); LYMPH % 13.5 % (24.0-44.0); MEAN CORPUSCULAR HGB CONC 32.6 g/dl (32.0-36.5); MEAN CORPUSCULAR VOLUME 82.9 fl (80.0-96.0); MONO # 0.6 K/mm3 (0.0-0.8); MONO % 4.4 % (0.0-5.0); NEUTROPHILS # 10.5 K/mm3 (1.8-7.7); NEUTROPHILS % 80.5 % (36.0-66.0); PLATELET COUNT, AUTOMATED 295 k/mm3 (150-450); RED CELL DISTRIBUTION WIDTH 12.9 % (11.5-14.5); WHITE BLOOD COUNT 13.1 K/mm3 (4.0-10.0)
[2016-06-17 19:44] LABS: ALBUMIN 3.8 GM/DL (3.2-5.2); ALBUMIN/GLOBULIN RATIO 0.95 (1.00-1.93); ALKALINE PHOSPHATASE 144 U/L (45-117); ALT/SGPT 19 U/L (12-78); ANION GAP 8 MEQ/L (8-16); AST/SGOT 5 U/L (15-37); BILIRUBIN,TOTAL 0.2 MG/DL (0.2-1.0); BLOOD UREA NITROGEN 22 MG/DL (7-18); CALCIUM LEVEL 9.6 MG/DL (8.5-10.1); CARBON DIOXIDE LEVEL 26 MEQ/L (21-32); CHLORIDE LEVEL 103 MEQ/L (98-107); CREATININE FOR GFR 1.28 MG/DL (0.55-1.02); GLOMERULAR FILTRATION RATE 46.8 (>51); GLUCOSE, FASTING 391 MG/DL (70-105); POTASSIUM SERUM 4.2 MEQ/L (3.5-5.1); SODIUM LEVEL 137 MEQ/L (136-145); TOTAL PROTEIN 7.8 GM/DL (6.4-8.2)
[2016-06-17 20:34] LABS: ERYTHROCYTE SEDIMENTATION RATE 47 mm/hr (0-30)
== END ==
LOC: M LAB REF 10:02
PROVIDERS: ATTEND Psychiatry & Neurology Neurology
DX: R51 Headache (principal); E55.9 Vitamin D deficiency, unspecified; Z79.899 Other long term (current) drug therapy

== ENCOUNTER 2016-06-20 10:08 | Outpatient (RCR) | payer MEDICARE, MEDICAID | END 2016-06-24 | LOC: M PT 10:08 | PROVIDERS: ATTEND Physician Assistant | DX: Z51.89 Encounter for other specified aftercare (principal); M54.2 Cervicalgia ==

== ENCOUNTER → 2016-06-30 | Outpatient (REF) | payer MEDICARE, OTHER, MEDICAID ==
[~2016-06-30] MED LIST changes: -COLA100C PO; +COLA100C3 PO; +FENO48TA2; +LEVE1INJ5 SC
== END ==
LOC: M SFHCWAGY 11:12
PROVIDERS: ATTEND Nurse Practitioner Women's Health
DX: Z12.4 Encounter for screening for malignant neoplasm of cervix (principal)

== ENCOUNTER → 2016-06-30 | Outpatient (CLI) | payer MEDICARE, OTHER, MEDICAID ==
--- NOTE | 2016-06-30 16:27 | REPMRS ---
Patient History The patient states she had a clinical breast exam in 07/11 No known family history of cancer. Digital Woman Screen Mammo: June 30, 2016 - Exam #: [id number] Bilateral CC and MLO view(s) were taken. Technologist: Linda Jiang, Technologist Prior study comparison: January 28, 2015, digital woman screen mammo performed at [facility]. December 25, 2013, digital woman screen mammo performed at [facility] to [facility]. FINDINGS: There are scattered fibroglandular densities. There has been no change in the appearance of the mammogram from the prior studies. There is a mild amount of scattered fibroglandular density which is fairly symmetric. There is no interval development of dominant mass, architectural distortion, or clustered microcalcification suggestive of malignancy. ASSESSMENT: BI-RADS/ACR category 1 mammogram. Negative. Recommendation Routine screening mammogram in 1 year (for women over age 40). This mammogram was interpreted with the aid of an FDA-approved computer-aided dectection system. Electronically Signed By: Rico Shane MD 06/30/16 3109
== END ==
LOC: M WHC 10:24
PROVIDERS: ATTEND Nurse Practitioner Women's Health
DX: Z12.31 Encounter for screening mammogram for malignant neoplasm of breast (principal); Z12.4 Encounter for screening for malignant neoplasm of cervix
CPT/HCPCS: G0101; G0123; G0202

== ENCOUNTER → 2016-07-02 | Emergency (ER) | payer MEDICARE, MEDICAID ==
[~2016-07-02] VITALS: Ht 152.4 cm; Wt 104.3 kg
[~2016-07-02] MED LIST changes: +LR 1,000 ML IV SCH
[2016-07-02 12:58] LABS: BASO % 0.3 % (0.0-1.0); EOS # 0.3 K/mm3 (0.0-0.50); EOS % 2.9 % (0.0-3.0); LARGE UNSTAINED CELL # 0.1 K/mm3 (0.0-0.4); LARGE UNSTAINED CELL % 0.9 % (0.0-4.0); LYMPH # 1.9 K/mm3 (1.5-4.5); LYMPH % 16.1 % (24.0-44.0); MEAN CORPUSCULAR HEMOGLOBIN 27.3 pg (27.0-33.0); MEAN CORPUSCULAR HGB CONC 32.1 g/dl (32.0-36.5); MEAN CORPUSCULAR VOLUME 85.1 fl (80.0-96.0); MONO # 0.6 K/mm3 (0.0-0.8); MONO % 5.1 % (0.0-5.0); NEUTROPHILS # 8.2 K/mm3 (1.8-7.7); NEUTROPHILS % 74.7 % (36.0-66.0); PLATELET COUNT, AUTOMATED 309 k/mm3 (150-450); RED CELL DISTRIBUTION WIDTH 13.2 % (11.5-14.5)
[2016-07-02 13:28] LABS: ALBUMIN 3.5 GM/DL (3.2-5.2); ALBUMIN/GLOBULIN RATIO 0.81 (1.00-1.93); BILIRUBIN,TOTAL 0.3 MG/DL (0.2-1.0); CREATININE FOR GFR 1.35 MG/DL (0.55-1.02); POTASSIUM SERUM 4.1 MEQ/L (3.5-5.1); TOTAL PROTEIN 7.8 GM/DL (6.4-8.2)
--- NOTE | 2016-07-02 14:00 | REP ---
RIGHT UPPER QUADRANT ULTRASOUND: 07/02/2016. Clinical history: Right upper quadrant pain. Comparison: 05/27/2016. Findings. The liver shows mild diffuse fatty infiltration and limited sonographic windows in the far field cannot be depicted due to sound attenuation and that limited window. No gross hepatic mass or biliary dilatation. The gallbladder has normal wall thickness 1.5 mm. Echogenicity in the neck of the gallbladder is seen and may reflect the presence of a small stone which was seen in the same region last month. Pancreas is limited as the tail region is obscured by gas shadowing. That portion visible was without abnormality. The right kidney is 10.4 x 4.9 x 4.7 cm. Impression: 1. Fatty infiltration of the liver with a suspected gallstone in the neck of the gallbladder as on the previous exam on 05/27/2016. Gallbladder wall thickness remains normal at 1.5 mm. The patient is tender all over during the examination and not just over the gallbladder. 2. That portion of pancreas observed was unremarkable although the tail is obscured by gas shadowing. 3. Common duct 2.3 mm without a filling defect or dilatation. No ascites in the upper abdomen. No gross liver abnormality. The technologist notes the patient is tender all over. Due to gas, body habitus considerations and poor pain tolerance, very limited scanning windows presented. This does have impact on the image technical quality of the exam. Signed by Cedric Escobar MD 07/02/2016 08:27 P
[2016-07-02 15:33] VITALS: BP 160/93
--- NOTE | 2016-07-03 06:51 | REP ---
CHEST PA AND LATERAL: 07/02/2016. Clinical history: Rule out pneumonia. Comparison 05/31/2014, 02/08/2012. Findings: Heart size borderline. Left ventricle appears prominent on the lateral view. The atrium mildly enlarged on the frontal view. Epicardial fat pads on both sides of the heart. There is no pleural effusion, dense consolidation or parenchymal mass. Some mild basilar fibrotic change noted. No vascular redistribution or edema. The aorta is calcified at the arch, mildly tortuous without aneurysm. Airway intact. Bony thorax shows no compression deformity or focal lesion. Impression: 1. No definite infiltrate, effusion, edema or mass. 2. Borderline heart size with left atrial enlargement on the frontal view, left ventricular enlargement suggested on the lateral projection. Signed by Cedric Escobar MD 07/03/2016 08:00 A
--- NOTE | 2016-07-03 20:54 | ECGEPIP ---
Stationary ECG Study [facility] - ED Test Date: 2016-07-02 Pat Name: PRUDENCIO SHAHID Department: Room: - Gender: F Personal Care Home Administrator: christine : 1965 Requested By: BUNNY Gunderson PA-C Order Number: [id number] Reading MD: Candy Bearden Measurements Intervals Thelma Rate: 64 P: 65 NM: 261 QRS: -55 QRSD: 148 T: 1 QT: 436 QTc: 452 Interpretive Statements SINUS RHYTHM WITH FIRST DEGREE AV BLOCK MARKED LEFT AXIS DEVIATION RIGHT BUNDLE BRANCH BLOCK DECREASED RATE 08/03/15 Electronically Signed On 07-03-2016 20:53:53 EDT by Candy Bearden
== END | disposition home or self-care (01) ==
LOC: M ED 11:51
DX: E11.65 Type 2 diabetes mellitus with hyperglycemia (principal); K80.20 Calculus of gallbladder without cholecystitis without obstruction; I44.0 Atrioventricular block, first degree; I10 Essential (primary) hypertension; N28.9 Disorder of kidney and ureter, unspecified; J45.909 Unspecified asthma, uncomplicated; E78.00 Pure hypercholesterolemia, unspecified; K57.92 Diverticulitis of intestine, part unspecified, without perforation or abscess without bleeding; F41.9 Anxiety disorder, unspecified; F32.9 Major depressive disorder, single episode, unspecified; F25.0 Schizoaffective disorder, bipolar type; E11.319 Type 2 diabetes mellitus with unspecified diabetic retinopathy without macular edema; Z88.8 Allergy status to other drugs, medicaments and biological substances; Z79.899 Other long term (current) drug therapy; Z79.02 Long term (current) use of antithrombotics/antiplatelets; Z79.4 Long term (current) use of insulin

== ENCOUNTER → 2016-07-07 | Outpatient (REF) | payer MEDICARE, OTHER, MEDICAID ==
[~2016-07-07] MED LIST changes: -LR 1,000 ML IV SCH
[2016-07-07 13:08] LABS: MEAN CORPUSCULAR HEMOGLOBIN 27.2 pg (27.0-33.0); MEAN CORPUSCULAR HGB CONC 33.2 g/dl (32.0-36.5); MEAN CORPUSCULAR VOLUME 82.1 fl (80.0-96.0); RED CELL DISTRIBUTION WIDTH 13.5 % (11.5-14.5); WHITE BLOOD COUNT 10.3 K/mm3 (4.0-10.0)
[2016-07-07 13:15] LABS: ALBUMIN 3.6 GM/DL (3.2-5.2); ALBUMIN/GLOBULIN RATIO 0.92 (1.00-1.93); BILIRUBIN,TOTAL 0.2 MG/DL (0.2-1.0); CALCIUM LEVEL 9.4 MG/DL (8.5-10.1); CREATININE FOR GFR 1.56 MG/DL (0.55-1.02); GLOMERULAR FILTRATION RATE 37.2 (>51); TOTAL PROTEIN 7.5 GM/DL (6.4-8.2)
== END ==
LOC: M SFHCADAM 11:40
PROVIDERS: ATTEND Physician Assistant

== ENCOUNTER 2016-07-12 09:32 | Outpatient (RCR) | payer MEDICARE, MEDICAID | END 2016-07-24 | LOC: M PT 09:32 | PROVIDERS: ATTEND Physician Assistant | DX: Z51.89 Encounter for other specified aftercare (principal); M54.2 Cervicalgia; M79.1 Myalgia | CPT/HCPCS: 97110; G8978; G8979; G8980 ==

== ENCOUNTER → 2016-07-13 | Outpatient (REF) | payer MEDICARE, MEDICAID ==
[2016-07-13 18:38] LABS: CALCIUM OXALATE CRYSTALS LARGE
== END ==
LOC: M LAB REF 16:36
PROVIDERS: ATTEND Physician Assistant
DX: R30.0 Dysuria (principal)

== ENCOUNTER → 2016-07-15 | Outpatient (CLI) | payer MEDICARE, MEDICAID, OTHER ==
--- NOTE | 2016-07-16 00:05 | ECWPNPC ---
PATIENT NAME: PRUDENCIO SHAHID : 1965 GENDER: FEMALE VISIT DATE: 07/15/2016 DISCHARGE DATE: 07/15/16 1203 VISIT LOCKED DATE TIME: PHYSICIAN: YULISSA STAUFFER RESOURCE: YULISSA STAUFFER REASON FOR APPOINTMENT 1. BACK HISTORY OF PRESENT ILLNESS HISTORY OF PRESENT ILLNESS: HERE FR POST PROCEDURE F/U.HAD BILATERAL THERAPEUTIC LUMBAR FACETS ON 06-14-16.REPORT 100% IMPROVEMENT IN PAIN THAT CONTINUES TODAY.REPORTS INTERMITTENT LOW BACK ACHE THAT RESPONDS TO HEAT OR STRETCHING. PAIN THE PATIENT DESCRIBES THE PAIN... FALL RISK SCREENING: SCREENING :NO FALLS IN THE PAST YEAR CURRENT MEDICATIONS TAKING FENOFIBRATE 48 MG TABLET 1 TABLET ORALLY ONCE A DAY TAKING PRAVASTATIN SODIUM 40 MG TABLET 1 TABLET ORALLY ONCE A DAY TAKING LAMICTAL 100 MG TABLET 1 TABLET ORALLY TWICE DAILY TAKING LATUDA 80 MG TABLET 1 TABLET WITH FOOD ORALLY ONCE A DAY TAKING ESCITALOPRAM OXALATE 20 MG TABLET 1 TABLET ORALLY ONCE A DAY TAKING HUMALOG 100 UNIT/ML SOLUTION SLIDING SCALE, IF BLOOD SUGAR IS 150 PT TAKES 10 UNITS, IF IT IS HIGHER THAN THAT 12 UNITS SUBCUTANEOUS SLIDING SCALE, MDD 24 UNITS TAKING POTASSIUM CHLORIDE 10 10 MEQ TABLET 1 TABLET ORAL ONCE A DAY TAKING MAGNESIUM OXIDE 400 MG TABLET 1 TABLET ORALLY ONCE A DAY TAKING ALBUTEROL SULFATE (2.5 MG/3ML) 0.083% NEBULIZATION SOLUTION 3 ML INHALATION QID PRN TAKING LEVEMIR FLEXPEN 100 UNIT/ML SOLUTION 16 UNITS SUBCUTANEOUS TWICE A DAY TAKING ACTOS 45MG TABLET 1 TABLET ORALLY ONCE A DAY TAKING LISINOPRIL 20 MG TABLET 1 TABLET ORALLY ONCE A DAY TAKING PLAVIX 75 MG TABLET 1 TABLET ORALLY ONCE A DAY TAKING VICTOZA 18 MG/3ML SOLUTION PEN-INJECTOR 1.8 ML SUBCUTANEOUS ONCE A DAY TAKING ZYRTEC ALLERGY 10 MG TABLET 1 TABLET NEEDED ORALLY ONCE A DAY TAKING CLOBETASOL PROPIONATE 0.05 % CREAM 1 APPLICATION TO AFFECTED AREA EXTERNALLY TWICE A DAY NEEDED TAKING FLONASE 50 MCG/ACT SUSPENSION 1 SPRAY IN EACH NOSTRIL NASALLY ONCE A DAY NEEDED TAKING AMLODIPINE BESYLATE 2.5 MG TABLET 1 TABLET ORALLY ONCE A DAY TAKING ATENOLOL 50 MG TABLET 1 TABLET ORALLY ONCE A DAY TAKING LASIX 20 MGS TABLET 1 TABLET ORALLY ONCE A DAY TAKING ESCITALOPRAM OXALATE 5 MG TABLET 1 TABLET ORALLY TAKES WITH 20 MG TAB FOR A TOTAL OF 25MG DAILY TAKING CALCIUM 600 + D 600-400 MG-UNIT TABLET 1 TABLET ORALLY ONCE A DAY TAKING DRISDOL 50,000 UNITS TABLET 1 TAB(S) ORAL TWICE A WEEK TAKING PRILOSEC 40 MG CAPSULE DELAYED RELEASE 1 CAPSULE ORALLY ONCE A DAY TAKING RANITIDINE HCL 150 MG CAPSULE 1 TAB ORALLY TWICE A DAY TAKING COLACE 100 MG CAPSULE 1 CAPSULE NEEDED ORALLY ONCE A DAY TAKING TYLENOL WITH CODEINE #3 300-30 MG TABLET 1 ORALLY EVERY 6 HRS PRN PAIN MDD3 TAKING MACROBID 100 MG CAPSULE 1 CAPSULE WITH FOOD ORALLY EVERY 12 HRS NOT-TAKING LIDOCAINE 5 % OINTMENT 1 APPLICATION TO AFFECTED AREA NEEDED EXTERNALLY THREE TIMES A DAY, NOTES: INSURANCE WILL NOT BE COVERING NOT-TAKING CETIRIZINE HCL 10MG TABLET TAKE ONE TABLET BY MOUTH ONCE DAILY NEEDED NOT-TAKING TOPAMAX 100 100MG TABLET 1 TAB(S) ORALLY TWICE A DAY (MIRA) NOT-TAKING VITAMIN D 1000 UNIT TABLET 1 CAPSULE P.O. TWICE A DAY MEDICATION LIST REVIEWED AND RECONCILED WITH THE PATIENT PAST MEDICAL HISTORY HYPERLIPIDEMIA DIABETES MELLITUS - WITH NON-PROLIFERATIVE RETINOPATHY LEFT EYE PER CENTER FOR SIGHT 06/2013. 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) CKD STAGE 3 ALLERGIES SEASONAL: NASAL CONGESTION: ALLERGY PEPTO BISMOL: THROAT SWELLS: ALLERGY SOCIAL HISTORY GENERAL: PAIN CLINIC PFS, CLERGY, PUBLIC HEALTH REFERRALS CLERGY REFERRAL NEEDED?NO WAS THE PROVIDER NOTIFIED OF ANY PERTINENT INFO?NO PFS REFERRAL NEEDED?NO PUBLIC HEALTH REFERRAL NEEDED?NO PATIENT: ____. REVIEW OF SYSTEMS CONSTITUTIONAL: ANY CHANGE IN YOUR MEDICAL CONDITION? NO . CHILLS NO . FEVER NO . INFECTION: DO YOU HAVE NEW INFECTIONS? NO . DO YOU HAVE HISTORY OF MRSA? NO . MUSCULOSKELETAL: ANY NEW PATTERNS OF PAIN OR NUMBNESS? NO . GASTROENTEROLOGY: ANY NEW CHANGE IN BOWEL CONTROL? NO . GENITOURINARY: ANY NEW CHANGE IN BLADDER CONTROL? YES UTI ON MACROBID . IS THERE A CHANCE YOU COULD BE ? NO . HEMATOLOGY/LYMPH: DO YOU TAKE ANY BLOOD THINNERS? (FOR EXAMPLE- COUMADIN, PLAVIX, AGGRENOX, PLATEL, PRADAXA, OR XARELTO) NO . WHEN WAS YOUR LAST DOSE? DATE: TIME: . NEUROLOGY: HAVE YOU FALLEN IN THE PAST 6 MONTHS? NO . ANY NEW EXTREMITY NUMBNESS OR WEAKNESS? NO . CARDIOLOGY: DO YOU HAVE A PACEMAKER OR DEFIBRILLATOR? NO . RESPIRATORY: HAVE YOU BEEN SICK IN THE PAST WEEK? NO . FEVER NO . FLU LIKE SYMPTOMS? NO . COUGH NO . INTEGUMENTARY: DO YOU HAVE ANY RASHES OR OPEN SORES? NO . ALLERGIC/IMMUNO: ARE YOU ALLERGIC TO SHELLFISH OR IV DYE? NO . ANY NEW ALLERGIES? NO . PSYCHIATRIC: DO YOU HAVE THOUGHTS OF HURTING YOURSELF OR SOMEONE ELSE? NO . ARE YOU ABUSED, NEGLECTED, OR IN AN UNSAFE ENVIRONMENT? NO . ENDOCRINOLOGY: ARE YOU DIABETIC? NO . OTHER: DO YOU NEED ANY PRESCRIPTIONS? NO . IF YES, PLEASE LIST: ____ . ANY NEW PROBLEMS WITH YOUR MEDICATIONS? NO . WHEN DID YOU LAST EAT? ____ . WHEN DID YOU LAST DRINK? ____ . WHAT DID YOU LAST DRINK? ____ . NAME OF PERSON DRIVING YOU HOME? ____ . DO YOU HAVE ANY OTHER QUESTIONS OR CONCERNS NO . REVIEWED BY: PROVIDER: YULISSA RASHID . VITAL SIGNS WT 232.6 LBS, HT 64.25 IN, BMI 39.61 INDEX, BP 148/68 MM HG, HR 74 /MIN, RR 16 /MIN, TEMP 97.0 F, OXYGEN SAT % 94%, NA INITIALS SC 11:53. EXAMINATION GENERAL EXAMINATION: LUNGS:LUNG SOUNDS ARE CLEAR. HEART:HEART RATE REGULAR. MUSCULOSKELETAL:*, MUSCLE STRENGTH TESTING 5/5 BILATERAL, PALPATION: NEGATIVE FOR PAIN OVER L/S SPINE. NEGATIVE FOR PAIN OVER L/S PARASPINALS... DIAGNOSTIC DATA-REVIEWED THORACIC MRI AND L/S MRI. ASSESSMENTS CHRONIC BILATERAL LOW BACK PAIN WITH BILATERAL SCIATICA - M54.42 (PRIMARY) PROCEDURE CODES FA211 ESTABILISHED PATIENT [facility] FACILITY CHARGE G8730 PAIN ASSESS POS TOOL F/U PLAN DOC G8427 DOC MEDS VERIFIED W/PT OR RE DISPOSITION & COMMUNICATION FOLLOW UP 3 MONTHS ELECTRONICALLY SIGNED BY GAY ZUNIGA ON 07/15/2016 AT 12:01 PM EDT DISCLAIMER : THIS IS A VISIT SUMMARY EXTRACTED FROM THE [employer] CHART. IT IS NOT A COPY OF THE [employer] PROGRESS NOTE. MARYLOU
== END | disposition home or self-care (01) ==
LOC: M PAIN 11:00
PROVIDERS: ATTEND Nurse Practitioner Family
DX: G89.29 Other chronic pain (principal); M54.42 Lumbago with sciatica, left side; E11.3292 Type 2 diabetes mellitus with mild nonproliferative diabetic retinopathy without macular edema, left eye; E11.22 Type 2 diabetes mellitus with diabetic chronic kidney disease; I12.9 Hypertensive chronic kidney disease with stage 1 through stage 4 chronic kidney disease, or unspecified chronic kidney disease; J45.909 Unspecified asthma, uncomplicated; N18.3 Chronic kidney disease, stage 3 (moderate); F33.9 Major depressive disorder, recurrent, unspecified; E78.5 Hyperlipidemia, unspecified; A60.09 Herpesviral infection of other urogenital tract; Z86.73 Personal history of transient ischemic attack (TIA), and cerebral infarction without residual deficits; Z79.899 Other long term (current) drug therapy; Z79.4 Long term (current) use of insulin; Z88.8 Allergy status to other drugs, medicaments and biological substances

== ENCOUNTER → 2016-08-17 | Outpatient (REF) | payer MEDICARE, MEDICAID, OTHER ==
[~2016-08-17] MED LIST changes: +AMLO10TA2 PO; +ATEN50TA2 PO; +CLOP75TA2 PO; +FURO20TA2 PO; +INSUDET SC; +KEFL500C7 PO; +LAMI1TAB7 PO; +LATU80TA PO; +LEXA5TAB13 PO; +LISI-538 PO; +NOVOINJ3 SQ; +OMEP40CA2 PO; +PIOG45TA2 PO; +PRAV80TA2 PO; +PYRI200T5 PO; +RANI150C PO; +ZONI50CA3 PO
[2016-08-17 20:09] LABS: MEAN CORPUSCULAR HEMOGLOBIN 28.2 pg (27.0-33.0); MEAN CORPUSCULAR HGB CONC 32.6 g/dl (32.0-36.5); MEAN CORPUSCULAR VOLUME 86.5 fl (80.0-96.0); RED CELL DISTRIBUTION WIDTH 14.2 % (11.5-14.5); WHITE BLOOD COUNT 11.2 K/mm3 (4.0-10.0)
[2016-08-17 20:37] LABS: ALBUMIN 3.7 GM/DL (3.2-5.2); ALBUMIN/GLOBULIN RATIO 0.93 (1.00-1.93); BILIRUBIN,TOTAL 0.2 MG/DL (0.2-1.0); CALCIUM LEVEL 9.8 MG/DL (8.5-10.1); CREATININE FOR GFR 1.3 MG/DL (0.55-1.02); POTASSIUM SERUM 4.4 MEQ/L (3.5-5.1); TOTAL PROTEIN 7.7 GM/DL (6.4-8.2)
== END ==
LOC: M SFHCADAM 15:39
PROVIDERS: ATTEND Physician Assistant
DX: Z01.818 Encounter for other preprocedural examination (principal); N18.3 Chronic kidney disease, stage 3 (moderate); I10 Essential (primary) hypertension
CPT/HCPCS: 80053; 85027; G0463

== ENCOUNTER 2016-08-29 11:40 | Emergency (ER) | payer MEDICARE, MEDICAID ==
[~2016-08-29] VITALS: Ht 152.4 cm; Wt 103.9 kg
[~2016-08-29 11:40] MED LIST changes: -KEFL500C7 PO; -PYRI200T5 PO
[2016-08-29 13:24] LABS: YEAST LIKE CELL URINE AUTO LARGE
[2016-08-29] MEDS ORDERED: KEFL500C7 PO (13:35)
[2016-08-29] MEDS ORDERED: PYRI200T5 PO (13:35)
[2016-08-29 13:45] VITALS: BP 148/88
== END 2016-08-29 13:55 | disposition home or self-care (01) ==
LOC: M ED 12:48
DX: N39.0 Urinary tract infection, site not specified (principal); I10 Essential (primary) hypertension; E11.9 Type 2 diabetes mellitus without complications; N28.9 Disorder of kidney and ureter, unspecified; Z79.899 Other long term (current) drug therapy; Z79.4 Long term (current) use of insulin

== ENCOUNTER → 2016-09-16 | Outpatient (CLI) | payer MEDICARE, MEDICAID, OTHER ==
[~2016-09-16] MED LIST changes: +KEFL500C7 PO; +PYRI200T5 PO
--- NOTE | 2016-09-23 00:14 | ECWPNPC ---
PATIENT NAME: PRUDENCIO SHAHID : 1965 GENDER: FEMALE VISIT DATE: 09/16/2016 DISCHARGE DATE: 09/16/16 1528 VISIT LOCKED DATE TIME: PHYSICIAN: YULISSA STAUFFER RESOURCE: YULISSA STAUFFER REASON FOR APPOINTMENT 1. LOW BACK HISTORY OF PRESENT ILLNESS HISTORY OF PRESENT ILLNESS: PAIN THE PATIENT DESCRIBES THE PAIN... FALL RISK SCREENING: SCREENING :NO FALLS IN THE PAST YEAR GENERAL: HERE FOR F/U OF CHRONIC LBP AND THORACIC BACK PAIN .RATING PAIN VAS 5/10.REPORTING AGGREVATION IN LBP R>L PAST 3 WEEKS.CONTINUES WITH LEFT LEG/CALF PAIN AND PARATHESIAS.REVIEWED MRI L/S SPINE 11-06-14.THIS IS SHOWING MULTI LEVEL FACET ARTHROPATHY.DENIES BOWEL OR BLADDER INCONTINENECE. CURRENT MEDICATIONS TAKING ATENOLOL 50 MG TABLET 1 TABLET ORALLY ONCE A DAY TAKING LIDOCAINE 0.5 % GEL DIRECTED EXTERNALLY BID PRN TAKING FENOFIBRATE 48 MG TABLET 1 TABLET ORALLY ONCE A DAY TAKING PRAVASTATIN SODIUM 40 MG TABLET 1 TABLET ORALLY ONCE A DAY TAKING LAMICTAL 100 MG TABLET 1 TABLET ORALLY TWICE DAILY TAKING LATUDA 80 MG TABLET 1 TABLET WITH FOOD ORALLY ONCE A DAY TAKING ESCITALOPRAM OXALATE 20 MG TABLET 1 TABLET ORALLY ONCE A DAY TAKING HUMALOG 100 UNIT/ML SOLUTION SLIDING SCALE, IF BLOOD SUGAR IS 150 PT TAKES 10 UNITS, IF IT IS HIGHER THAN THAT 12 UNITS SUBCUTANEOUS SLIDING SCALE, MDD 24 UNITS TAKING POTASSIUM CHLORIDE 10 10 MEQ TABLET 1 TABLET ORAL ONCE A DAY TAKING MAGNESIUM OXIDE 400 MG TABLET 1 TABLET ORALLY ONCE A DAY TAKING ALBUTEROL SULFATE (2.5 MG/3ML) 0.083% NEBULIZATION SOLUTION 3 ML INHALATION QID PRN TAKING LEVEMIR FLEXPEN 100 UNIT/ML SOLUTION 18 UNITS SUBCUTANEOUS TWICE A DAY TAKING ACTOS 45MG TABLET 1 TABLET ORALLY ONCE A DAY TAKING LISINOPRIL 20 MG TABLET 1 TABLET ORALLY ONCE A DAY TAKING PLAVIX 75 MG TABLET 1 TABLET ORALLY ONCE A DAY TAKING VICTOZA 18 MG/3ML SOLUTION PEN-INJECTOR 1.8 ML SUBCUTANEOUS ONCE A DAY TAKING ZYRTEC ALLERGY 10 MG TABLET 1 TABLET NEEDED ORALLY ONCE A DAY TAKING CLOBETASOL PROPIONATE 0.05 % CREAM 1 APPLICATION TO AFFECTED AREA EXTERNALLY TWICE A DAY NEEDED TAKING FLONASE 50 MCG/ACT SUSPENSION 1 SPRAY IN EACH NOSTRIL NASALLY ONCE A DAY NEEDED TAKING AMLODIPINE BESYLATE 2.5 MG TABLET 1 TABLET ORALLY ONCE A DAY TAKING LASIX 20 MGS TABLET 1 TABLET ORALLY ONCE A DAY TAKING ESCITALOPRAM OXALATE 5 MG TABLET 1 TABLET ORALLY TAKES WITH 20 MG TAB FOR A TOTAL OF 25MG DAILY TAKING CALCIUM 600 + D 600-400 MG-UNIT TABLET 1 TABLET ORALLY ONCE A DAY TAKING DRISDOL 50,000 UNITS TABLET 1 TAB(S) ORAL TWICE A WEEK TAKING PRILOSEC 40 MG CAPSULE DELAYED RELEASE 1 CAPSULE ORALLY ONCE A DAY TAKING RANITIDINE HCL 150 MG CAPSULE 1 TAB ORALLY TWICE A DAY TAKING COLACE 100 MG CAPSULE 1 CAPSULE NEEDED ORALLY ONCE A DAY TAKING TYLENOL WITH CODEINE #3 300-30 MG TABLET 1 ORALLY EVERY 6 HRS PRN PAIN MDD3 TAKING LIDOCAINE 5 % OINTMENT 1 APPLICATION TO AFFECTED AREA NEEDED EXTERNALLY THREE TIMES A DAY DISCONTINUED MACROBID 100 MG CAPSULE 1 CAPSULE WITH FOOD ORALLY EVERY 12 HRS MEDICATION LIST REVIEWED AND RECONCILED WITH THE PATIENT PAST MEDICAL HISTORY HYPERLIPIDEMIA DIABETES MELLITUS - WITH NON-PROLIFERATIVE RETINOPATHY LEFT EYE PER CENTER FOR SIGHT 06/2013. 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) CKD STAGE 3 ALLERGIES SEASONAL: NASAL CONGESTION: ALLERGY PEPTO BISMOL: THROAT SWELLS: ALLERGY REVIEW OF SYSTEMS REVIEWED BY: PROVIDER: YULISSA RASHID . CONSTITUTIONAL: ANY CHANGE IN YOUR MEDICAL CONDITION? YES, DIAGNOSED WITH STAGE 3 KIDNEY DISEASE APPROX 3 MONTHS AGO. . CHILLS NO . FEVER NO . INFECTION: DO YOU HAVE NEW INFECTIONS? NO . DO YOU HAVE HISTORY OF MRSA? NO . MUSCULOSKELETAL: ANY NEW PATTERNS OF PAIN OR NUMBNESS? NO . GASTROENTEROLOGY: ANY NEW CHANGE IN BOWEL CONTROL? NO . GENITOURINARY: ANY NEW CHANGE IN BLADDER CONTROL? NO . IS THERE A CHANCE YOU COULD BE ? NO . HEMATOLOGY/LYMPH: DO YOU TAKE ANY BLOOD THINNERS? (FOR EXAMPLE- COUMADIN, PLAVIX, AGGRENOX, PLATEL, PRADAXA, OR XARELTO) YES,PLAVIX . WHEN WAS YOUR LAST DOSE? DATE: TIME: 09/15/16 1000 . NEUROLOGY: HAVE YOU FALLEN IN THE PAST 6 MONTHS? NO . ANY NEW EXTREMITY NUMBNESS OR WEAKNESS? NO . CARDIOLOGY: DO YOU HAVE A PACEMAKER OR DEFIBRILLATOR? NO . RESPIRATORY: HAVE YOU BEEN SICK IN THE PAST WEEK? NO . FEVER NO . FLU LIKE SYMPTOMS? NO . COUGH NO . INTEGUMENTARY: DO YOU HAVE ANY RASHES OR OPEN SORES? NO . ALLERGIC/IMMUNO: ARE YOU ALLERGIC TO SHELLFISH OR IV DYE? NO . ANY NEW ALLERGIES? NO . PSYCHIATRIC: DO YOU HAVE THOUGHTS OF HURTING YOURSELF OR SOMEONE ELSE? NO . ARE YOU ABUSED, NEGLECTED, OR IN AN UNSAFE ENVIRONMENT? NO . ENDOCRINOLOGY: ARE YOU DIABETIC? YES, FSBS THIS A.M. 140 . OTHER: DO YOU NEED ANY PRESCRIPTIONS? YES . IF YES, PLEASE LIST: LIDOCAINE OINT . ANY NEW PROBLEMS WITH YOUR MEDICATIONS? NO . WHEN DID YOU LAST EAT? ____ . WHEN DID YOU LAST DRINK? ____ . WHAT DID YOU LAST DRINK? ____ . NAME OF PERSON DRIVING YOU HOME? ____ . DO YOU HAVE ANY OTHER QUESTIONS OR CONCERNS THINKS SHE IS READY FOR AN INJECTION . VITAL SIGNS WT 228.2 LBS, HT 64.25 IN, BMI 38.86 INDEX, BP 159/97 MM HG, HR 87 /MIN, RR 16 /MIN, TEMP 97.6 F, OXYGEN SAT % 97, NA INITIALS AD. EXAMINATION GENERAL EXAMINATION: LUNGS:LUNG SOUNDS ARE CLEAR. HEART:HEART RATE REGULAR. MUSCULOSKELETAL:*, MUSCLE STRENGTH TESTING 5/5 BILATERAL, PALPATION: POSITIVE FOR PAIN OVER L/S SPINE. POSITIVE FOR PAIN OVER L/S PARSPINALS.POSITIVE FOR PAIN OVER BILAT. SIJ, PALPATION: POSITIVE FOR PAIN OVER RIGHT MID THORACIC FACETS.LARGE 6INCH CIRCULAR WELL HEALED INCISON UPPER THORACIC.SPECIFIC POINT TENDERNESS OVER LUMBAR FACET JOINTS WITH FACET LOADING.. DIAGNOSTIC DATA-REVIEWED THORACIC MRI AND L/S MRI. ASSESSMENTS CHRONIC BILATERAL LOW BACK PAIN WITH BILATERAL SCIATICA - M54.42 (PRIMARY) LUMBOSACRAL SPONDYLOSIS WITHOUT MYELOPATHY - M47.817 TREATMENT CHRONIC BILATERAL LOW BACK PAIN WITH BILATERAL SCIATICA START LIDOCAINE-PRILOCAINE CREAM, 2.5-2.5 %, DIRECTED TO LOW BACK, EXTERNALLY, TID PRN, 30 DAY(S), 1, REFILLS 5 NOTES: BILAT. L4/5-L5/S1 LUMBAR THERAPEUTIC FACET BLOCK STOP PLAVIX X 7 DAYS AND SCHEDULE PROCEDURE ON DAY #8,FACET JOINT INJECTION MATERIAL WAS PRINTED,FACET JOINT INJECTION: YOUR EXPERIENCE MATERIAL WAS PRINTED. PREVENTIVE MEDICINE PAIN CLINIC TEACHING: PROCEDURE TEACHING PRINTED INFORMATION ON FACET BLOCK GIVEN TO AND EXPLAINED TO PT. ALONG WITH PRE-PROCEDURE INSTRUCTIONS AND PT. VERBALIZED UNDERSTANDING OF BOTH. AD. PROCEDURE CODES FA211 ESTABILISHED PATIENT [facility] FACILITY CHARGE G8730 PAIN ASSESS POS TOOL F/U PLAN DOC G8427 DOC MEDS VERIFIED W/PT OR RE DISPOSITION & COMMUNICATION FOLLOW UP 2WK POST (REASON: BILAT. L4/5-L5/S1 LUMBAR THERAPEUTIC FACET BLOCK) ELECTRONICALLY SIGNED BY GAY ZUNIGA ON 09/22/2016 AT 04:54 PM EDT DISCLAIMER : THIS IS A VISIT SUMMARY EXTRACTED FROM THE [employer] [facility] CHART. IT IS NOT A COPY OF THE [place] [facility] PROGRESS NOTE. MARYLOU
== END | disposition home or self-care (01) ==
LOC: M PAIN 14:40
PROVIDERS: ATTEND Nurse Practitioner Family
DX: G89.29 Other chronic pain (principal); M54.42 Lumbago with sciatica, left side; M47.817 Spondylosis without myelopathy or radiculopathy, lumbosacral region; E78.5 Hyperlipidemia, unspecified; E11.9 Type 2 diabetes mellitus without complications; F33.9 Major depressive disorder, recurrent, unspecified; I12.9 Hypertensive chronic kidney disease with stage 1 through stage 4 chronic kidney disease, or unspecified chronic kidney disease; Z86.73 Personal history of transient ischemic attack (TIA), and cerebral infarction without residual deficits; J45.909 Unspecified asthma, uncomplicated; M19.90 Unspecified osteoarthritis, unspecified site; N18.3 Chronic kidney disease, stage 3 (moderate); A60.09 Herpesviral infection of other urogenital tract; Z79.899 Other long term (current) drug therapy; Z79.4 Long term (current) use of insulin; Z88.8 Allergy status to other drugs, medicaments and biological substances

== ENCOUNTER 2016-09-21 09:51 | Outpatient (RCR) | payer MEDICARE, MEDICAID ==
[~2016-09-21 09:51] MED LIST changes: +ACTO45TA12 PO; -ACTO45TA6 PO; -COLA100C3 PO; +COLA100C5 PO; +KEFL500C17 PO; -KEFL500C7 PO; -METF1000 PO; +METF10004 PO; -OXYB5TA PO; +OXYB5TAB10 PO; -PIOG45TA2 PO; +PIOG45TA4 PO; +PYRI1TAB5 PO; -PYRI200T5 PO; +TOPA100T12 PO; -TOPA100T8 PO; -VESI5TAB PO; +VESI5TAB2 PO
== END 2016-09-23 ==
LOC: M PT 09:51
PROVIDERS: ATTEND Physician Assistant Surgical
DX: Z51.89 Encounter for other specified aftercare (principal); M75.41 Impingement syndrome of right shoulder; M75.42 Impingement syndrome of left shoulder; G25.89 Other specified extrapyramidal and movement disorders; M89.8X9 Other specified disorders of bone, unspecified site
CPT/HCPCS: 97110; 97140; 97162; G8984; G8985

== ENCOUNTER 2016-10-12 13:45 | Outpatient (RCR) | payer MEDICARE, MEDICAID | END 2016-10-24 | LOC: M PT 13:45 | PROVIDERS: ATTEND Physician Assistant Surgical | DX: Z51.89 Encounter for other specified aftercare (principal); M75.41 Impingement syndrome of right shoulder; M75.42 Impingement syndrome of left shoulder; G25.89 Other specified extrapyramidal and movement disorders; M89.8X9 Other specified disorders of bone, unspecified site | CPT/HCPCS: 97110; G8981; G8982; G8983 ==

== ENCOUNTER → 2016-10-14 | Day surgery (SDC) | payer MEDICARE, MEDICAID ==
[~2016-10-14] VITALS: Ht 152.4 cm; Wt 104.8 kg
[~2016-10-14] MED LIST changes: +AMPICILLIN SOD/SULBACTAM SOD 3 GM in D5W MINI-BAG PLUS 100 ML IV ONE; +BUPIVACAINE HCL 0.25% 30 ML VIAL As Ordered ONE; +GABA-279; +GLYCOPYRROLATE INJ 0.2 MG/ML 2 ML VIAL As Ordered ONE; +KETOROLAC 30 MG/ML VIAL (J1885) IV PRN; +KETOROLAC 60 MG/2 ML VIAL (J1885) As Ordered ONE; +LABETALOL HCL 100 MG/20 ML VIAL As Ordered ONE; +LIDOCAINE 1% SDV INJ 30 ML VIAL As Ordered ONE; +LIDOCAINE 2% INJ 100 MG/5 ML SDV (FOR ANES.) As Ordered ONE; +LIDOCAINE-PRILOCAINE; +LISI40TAB; +LR 1,000 ML IV SCH; +MIDAZOLAM INJ 2 MG/2 ML VIAL (J2250) As Ordered ONE; +MORPHINE 2 MG/ML 1ML SYRINGE IV PRN; +NEOSTIGMINE 1MG/ML 5 ML SYRINGE (J2710) As Ordered ONE; +NORC1TAB4 PO; +NORCO, ANEXSIA 5/325MG TABLET (HYDROcodone/ACETAMINOPHEN) PO PRN; +ONDANSETRON 4MG/2ML VIAL (J2405) As Ordered ONE; +ONDANSETRON 4MG/2ML VIAL (J2405) IV PRN; +PERCOCET 5MG/325MG TAB PO PRN; +PROPOFOL 200 MG/20 ML VIAL As Ordered ONE; +ROCURONIUM BROMIDE 50 MG/5 ML VIAL/SYRINGE As Ordered ONE; +SUGAMMADEX SODIUM 500 MG/5 ML VIAL (BRIDION) As Ordered ONE; +dexameTHASONE 4 MG/ML 1ML VIAL (J1100) As Ordered ONE; +fentaNYL 100 MCG/2 ML INJECTION (J3010) As Ordered ONE
--- NOTE | 2016-10-14 09:21 | ROOPDOC ---
[facility] Report Of Operation Report of Operation DATE OF PROCEDURE: 10/14/16 PREPROCEDURE DIAGNOSES: Cholelithiasis, history of gallstone pancreatitis. morbid obesity (BMI 45) POSTPROCEDURE DIAGNOSES: Cholelithiasis, mild chronic cholecystitis morbid obesity PROCEDURE: Laparoscopic Cholecystectomy. SURGEON: Ana Drake MD PYROTECHNIST: MD Mercedes Hernandez, [facility] ANESTHESIA: general. ESTIMATED BLOOD LOSS: Approximately 10 mL. COMPLICATIONS: none. REMARKS: small recurring umbilical hernia, not palpable clinically, enlarged liver . PROCEDURE NOTE: 51 F seen at the ED with abdominal pain in July found to have evidence for cholelithiasis, mild elevation of her lipase. DESCRIPTION OF PROCEDURE: . She is brought to the OR for laparoscopic cholecystectomy. She has given a dose of Unasyn 3 gm IV for prophylaxis. She was brought to the operating room, placed supine on the table. General endotracheal anesthesia started. Her abdomen prepped and draped in usual sterile fashion. She had compression stockings for DVT prophylaxis. After surgical timeout we began our surgery. Entry into the abdomen done through an incision at the left upper quarant area. Patient has a history of prior umbilical hernia repair with a short transverse incision just above the umbilicus.. Veress needle inserted and intra-abdominal insufflation done to a pressure of 15 mmHg. Using the same incision a 5 mm Visiport was placed under direct vision laparoscope. On entry there was a tongue of omentum stuck at the area of previous hernia repair. The liver appears moderately enlarged with the omemntum draped onmost of the abdominal contents. She was placed on a steep reverse trendelenburg position. A working port was placed along the mid right subcostal area. The omentum underneath the top of the umbilicus was dissected off the abdominal wall with scissors and cautery, Bleeding at the site controlled with cautery. The ethibond incision was intact but a beginning hernia defect can be noted in between the sutures. She was then placed on the reverse Trendelenburg position, her right side tilted up about 30 to further expose the gallbladder. 3 working ports were placed in their usual position including 11 mm port at the epigastric area, and 5 mm ports along the right subcostal line and at the suprapubic area. Her abdomen was asymmetrically protuberant along the epigastric area. The gallbladder was noted to be contracted with some of the omentum adhered to the underside of the gallbladder at its infundibular side.. Fundus of gallbladder was grasped and the gallbladder elevated superiorly exposing the infundibulum neck to gallbladder. There were some small adhesions at the underside of the gallbladder which was easily lysed. There was moderate amount of fat at the area. The omentum and fat was dissected off the gallbladder wall. The hepato- cystic triangle was dissected both with [place] instrument and Bovie cautery. The cystic duct was identified as well as the cystic artery. The duct comes off the underside fo the gallbladder throughout most of its course. There were both circumferentially dissected. The posterior wall of the neck of the gallbladder was likewise dissected free off the liver bed. Dissection of the Gallbladder neck done until we met the critical view of safety whereby only the previously identified cystic duct and cystic artery were coursing through the neck to gallbladder. The cystic artery was clipped 4 times and divided. We were able to further identify the anterior branch of the cystic artery and twe dissected the gallbladder off this. The cystic duct was clipped 4 times and subsequently divided. The rest of the gallbladder was then dissected off the liver bed with Bovie cautery. There was minimal oozing from the anterior side of the gallbladder bed. The gallbladder was extracted through the epigastric port site.. On re-insufflation, we examined our surgical site. Liver bed shows no bleeding. The clips at the cystic duct and artery were noted to be well placed. The abdomen was then deflated, all ports removed. The fascial defect at the epigastric port site was closed with 0 Vicryl. All skin incisions closed with 4-0 Monocryl in subcuticular fashion Dermabond was used for wound coverage. Patient was then promptly awake and extubated and brought to the recovery room stable sponges and instruments verified to be correct . TASH DRAKE MD Oct 14, 2016 09:21
[2016-10-14] MEDS: fentaNYL 100 MCG/2 ML INJECTION (J3010) IV PRN ×2 (09:30→09:37)
[2016-10-14 11:35] VITALS: BP 147/73
== END | disposition home or self-care (01) ==
LOC: M SDC 05:44
PROVIDERS: ATTEND Surgery
DX: K80.10 Calculus of gallbladder with chronic cholecystitis without obstruction (principal); Z87.19 Personal history of other diseases of the digestive system; E66.01 Morbid (severe) obesity due to excess calories; Z68.42 Body mass index [BMI] 45.0-49.9, adult; I10 Essential (primary) hypertension; E11.9 Type 2 diabetes mellitus without complications; E78.00 Pure hypercholesterolemia, unspecified; Z86.73 Personal history of transient ischemic attack (TIA), and cerebral infarction without residual deficits; F32.9 Major depressive disorder, single episode, unspecified; N28.9 Disorder of kidney and ureter, unspecified; K21.9 Gastro-esophageal reflux disease without esophagitis; Z87.891 Personal history of nicotine dependence; Z79.899 Other long term (current) drug therapy; Z79.02 Long term (current) use of antithrombotics/antiplatelets; Z88.8 Allergy status to other drugs, medicaments and biological substances; Z79.4 Long term (current) use of insulin
CPT/HCPCS: 47562; 88304; J1100; J1885; J2250; J2405; J2710; J3010

== ENCOUNTER → 2017-01-04 | Outpatient (CLI) | payer MEDICARE, MEDICAID, OTHER ==
[~2017-01-04] MED LIST changes: -AMPICILLIN SOD/SULBACTAM SOD 3 GM in D5W MINI-BAG PLUS 100 ML IV ONE; -BUPIVACAINE HCL 0.25% 30 ML VIAL As Ordered ONE; -GLYCOPYRROLATE INJ 0.2 MG/ML 2 ML VIAL As Ordered ONE; -KETOROLAC 30 MG/ML VIAL (J1885) IV PRN; -KETOROLAC 60 MG/2 ML VIAL (J1885) As Ordered ONE; -LABETALOL HCL 100 MG/20 ML VIAL As Ordered ONE; -LIDOCAINE 1% SDV INJ 30 ML VIAL As Ordered ONE; -LIDOCAINE 2% INJ 100 MG/5 ML SDV (FOR ANES.) As Ordered ONE; -LR 1,000 ML IV SCH; -MIDAZOLAM INJ 2 MG/2 ML VIAL (J2250) As Ordered ONE; -MORPHINE 2 MG/ML 1ML SYRINGE IV PRN; -NEOSTIGMINE 1MG/ML 5 ML SYRINGE (J2710) As Ordered ONE; -NORCO, ANEXSIA 5/325MG TABLET (HYDROcodone/ACETAMINOPHEN) PO PRN; -ONDANSETRON 4MG/2ML VIAL (J2405) As Ordered ONE; -ONDANSETRON 4MG/2ML VIAL (J2405) IV PRN; -PERCOCET 5MG/325MG TAB PO PRN; -PROPOFOL 200 MG/20 ML VIAL As Ordered ONE; -ROCURONIUM BROMIDE 50 MG/5 ML VIAL/SYRINGE As Ordered ONE; -SUGAMMADEX SODIUM 500 MG/5 ML VIAL (BRIDION) As Ordered ONE; -dexameTHASONE 4 MG/ML 1ML VIAL (J1100) As Ordered ONE; -fentaNYL 100 MCG/2 ML INJECTION (J3010) As Ordered ONE
--- NOTE | 2017-01-18 00:26 | ECWPNPC ---
PATIENT NAME: PRUDENCIO SHAHID : 1965 GENDER: FEMALE VISIT DATE: 01/04/2017 DISCHARGE DATE: 01/04/17 1606 VISIT LOCKED DATE TIME: PHYSICIAN: YULISSA STAUFFER RESOURCE: YULISSA STAUFFER REASON FOR APPOINTMENT 1. BACK HISTORY OF PRESENT ILLNESS HISTORY OF PRESENT ILLNESS: PAIN THE PATIENT DESCRIBES THE PAIN... FALL RISK SCREENING: SCREENING :NO FALLS IN THE PAST YEAR GENERAL: HERE FOR F/U OF CHRONIC LBP AND THORACIC BACK PAIN .RATING PAIN VAS 5/10.FELL THIS AM LANDING ON HANDS AND KNEES AND IS HAVING INCREASE IN RIGHT LBP AND NEW ONSET RIGHT LATERAL LEG PAIN.CONTINUES WITH LEFT LEG/CALF PAIN AND PARATHESIAS.REVIEWED MRI L/S SPINE 11-06-14.THIS IS SHOWING MULTI LEVEL FACET ARTHROPATHY.DENIES BOWEL OR BLADDER INCONTINENECE. CURRENT MEDICATIONS TAKING ATENOLOL 50 MG TABLET 1 TABLET ORALLY ONCE A DAY TAKING FENOFIBRATE 48 MG TABLET 1 TABLET ORALLY ONCE A DAY TAKING PRAVASTATIN SODIUM 40 MG TABLET 1 TABLET ORALLY ONCE A DAY TAKING LAMICTAL 100 MG TABLET 1 TABLET ORALLY TWICE DAILY TAKING LATUDA 80 MG TABLET 1 TABLET WITH FOOD ORALLY ONCE A DAY TAKING ESCITALOPRAM OXALATE 20 MG TABLET 1 TABLET ORALLY ONCE A DAY TAKING POTASSIUM CHLORIDE 10 10 MEQ TABLET 1 TABLET ORAL ONCE A DAY TAKING MAGNESIUM OXIDE 400 MG TABLET 1 TABLET ORALLY ONCE A DAY TAKING ALBUTEROL SULFATE (2.5 MG/3ML) 0.083% NEBULIZATION SOLUTION 3 ML INHALATION QID PRN TAKING PLAVIX 75 MG TABLET 1 TABLET ORALLY ONCE A DAY TAKING ZYRTEC ALLERGY 10 MG TABLET 1 TABLET NEEDED ORALLY ONCE A DAY TAKING CLOBETASOL PROPIONATE 0.05 % CREAM 1 APPLICATION TO AFFECTED AREA EXTERNALLY TWICE A DAY NEEDED TAKING FLONASE 50 MCG/ACT SUSPENSION 1 SPRAY IN EACH NOSTRIL NASALLY ONCE A DAY NEEDED TAKING ESCITALOPRAM OXALATE 5 MG TABLET 1 TABLET ORALLY TAKES WITH 20 MG TAB FOR A TOTAL OF 25MG DAILY TAKING CALCIUM 600 + D 600-400 MG-UNIT TABLET 1 TABLET ORALLY ONCE A DAY TAKING PRILOSEC 40 MG CAPSULE DELAYED RELEASE 1 CAPSULE ORALLY ONCE A DAY TAKING RANITIDINE HCL 150 MG CAPSULE 1 TAB ORALLY TWICE A DAY TAKING COLACE 100 MG CAPSULE 1 CAPSULE NEEDED ORALLY ONCE A DAY TAKING TYLENOL WITH CODEINE #3 300-30 MG TABLET 1 ORALLY EVERY 6 HRS PRN PAIN MDD3 TAKING LIDOCAINE-PRILOCAINE 2.5-2.5 % CREAM DIRECTED TO LOW BACK EXTERNALLY TID PRN TAKING HUMALOG 100 UNIT/ML SOLUTION SLIDING SCALE, IF BLOOD SUGAR IS 150 PT TAKES 10 UNITS, IF IT IS HIGHER THAN THAT 12 UNITS SUBCUTANEOUS SLIDING SCALE, MDD 24 UNITS TAKING LEVEMIR FLEXPEN 100 UNIT/ML SOLUTION 18 UNITS SUBCUTANEOUS TWICE A DAY TAKING ACTOS 45MG TABLET 1 TABLET ORALLY ONCE A DAY TAKING VICTOZA 18 MG/3ML SOLUTION PEN-INJECTOR 1.8 ML SUBCUTANEOUS ONCE A DAY TAKING LASIX 20 MGS TABLET 1 TABLET ORALLY ONCE A DAY TAKING AMLODIPINE BESYLATE 2.5 MG TABLET 1 TABLET ORALLY ONCE A DAY TAKING LISINOPRIL 20 MG TABLET 1 TABLET ORALLY ONCE A DAY TAKING CETIRIZINE HCL 10MG TABLET TAKE ONE TABLET BY MOUTH ONCE DAILY NEEDED NOT-TAKING LIDOCAINE 0.5 % GEL DIRECTED EXTERNALLY BID PRN NOT-TAKING DRISDOL 50,000 UNITS TABLET 1 TAB(S) ORAL TWICE A WEEK NOT-TAKING LIDOCAINE 5 % OINTMENT 1 APPLICATION TO AFFECTED AREA NEEDED EXTERNALLY THREE TIMES A DAY MEDICATION LIST REVIEWED AND RECONCILED WITH THE PATIENT PAST MEDICAL HISTORY HYPERLIPIDEMIA DIABETES MELLITUS - WITH NON-PROLIFERATIVE RETINOPATHY LEFT EYE PER CENTER FOR SIGHT 06/2013. 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 EXERCISE: NONE. MARITAL STATUS: .. OTHERS AT HOME: CHILD DAUGHTER. PETS: 1 CAT. CATHOLIC [id number] CONGREGATIONAL LANGUAGE LANGUAGES SPOKEN:FAROESE LEARNING BARRIERS / SPECIAL NEEDS CHANGE FROM LAST VISIT?NO BARRIERS TO LEARNING?NO HEARING IMPAIRED?NO VISION IMPAIRED?YES :CORRECTIVE LENSES COGNITIVELY IMPAIRED?NO READINESS TO LEARN?YES LEARNING PREFERENCES?NO LEARNING CAPABILITIES PRESENT?YES EMOTIONAL BARRIERS?NO SPECIAL DEVICES?NO BRUISE TRIMMER NEEDED?NO PAIN CLINIC PFS, CLERGY, PUBLIC HEALTH REFERRALS PFS REFERRAL NEEDED?NO CLERGY REFERRAL NEEDED?NO PUBLIC HEALTH REFERRAL NEEDED?NO HAS THE PATIENT BEEN EDUCATED REGARDING HIS/HER PLAN OF CARE?YES HAS THE PATIENT BEEN EDUCATED REGARDING PAIN, THE RISK FOR PAIN, THE IMPORTANCE OF EFFECTIVE PAIN MANAGEMENT, AND THE PAIN ASSESSMENT PROCESS?YES PATIENT: ____. ADVANCE DIRECTIVES HEALTH CARE PROXY?NO WOULD YOU LIKE MORE INFORMATION?NO DO YOU HAVE A DNR?NO WOULD YOU LIKE MORE INFORMATION?NO LIVING WILL?NO WOULD YOU LIKE MORE INFORMATION?NO POWER OF ROUGH RICE TENDER?NO WOULD YOU LIKE MORE INFORMATION?NO HOSPITALIZATION/MAJOR DIAGNOSTIC PROCEDURE 3 DAYS FOR TIA 06/2013 SURGERIES REVIEW OF SYSTEMS REVIEWED BY: PROVIDER: YULISSA RASHID . CONSTITUTIONAL: ANY CHANGE IN YOUR MEDICAL CONDITION? NO . CHILLS NO . FEVER NO . INFECTION: DO YOU HAVE NEW INFECTIONS? NO . DO YOU HAVE HISTORY OF MRSA? NO . MUSCULOSKELETAL: ANY NEW PATTERNS OF PAIN OR NUMBNESS? YES, AFTER FALLING TODAY NEW PAIN RIGHT HIP AREA . GASTROENTEROLOGY: ANY NEW CHANGE IN BOWEL CONTROL? YES, CONSTIPATED . GENITOURINARY: ANY NEW CHANGE IN BLADDER CONTROL? NO . IS THERE A CHANCE YOU COULD BE ? NO . HEMATOLOGY/LYMPH: DO YOU TAKE ANY BLOOD THINNERS? (FOR EXAMPLE- COUMADIN, PLAVIX, AGGRENOX, PLATEL, PRADAXA, OR XARELTO) YES, PLAVIX . WHEN WAS YOUR LAST DOSE? DATE: 01/04/17 TIME: 1000 . NEUROLOGY: HAVE YOU FALLEN IN THE PAST 6 MONTHS? YES, TODAY . ANY NEW EXTREMITY NUMBNESS OR WEAKNESS? NO . CARDIOLOGY: DO YOU HAVE A PACEMAKER OR DEFIBRILLATOR? NO . RESPIRATORY: HAVE YOU BEEN SICK IN THE PAST WEEK? NO . FEVER NO . FLU LIKE SYMPTOMS? NO . COUGH NO . INTEGUMENTARY: DO YOU HAVE ANY RASHES OR OPEN SORES? NO . ALLERGIC/IMMUNO: ARE YOU ALLERGIC TO SHELLFISH OR IV DYE? NO . ANY NEW ALLERGIES? NO . PSYCHIATRIC: DO YOU HAVE THOUGHTS OF HURTING YOURSELF OR SOMEONE ELSE? NO . ARE YOU ABUSED, NEGLECTED, OR IN AN UNSAFE ENVIRONMENT? NO . ENDOCRINOLOGY: ARE YOU DIABETIC? YES . OTHER: DO YOU NEED ANY PRESCRIPTIONS? YES . IF YES, PLEASE LIST: ____ . ANY NEW PROBLEMS WITH YOUR MEDICATIONS? NO . WHEN DID YOU LAST EAT? ____ . WHEN DID YOU LAST DRINK? ____ . WHAT DID YOU LAST DRINK? ____ . NAME OF PERSON DRIVING YOU HOME? ____ . DO YOU HAVE ANY OTHER QUESTIONS OR CONCERNS YES, "I FELL TODAY, LOW BACK ON RIGHT IS TENDER, FELL ON KNEES . VITAL SIGNS WT 223 LBS, HT 64.25 IN, BMI 37.98 INDEX, BP 132/81 MM HG, HR 86 /MIN, RR 18 /MIN, TEMP 97.7 F, OXYGEN SAT % 99%, SAFE IN ENV? (Y/N) YES, NA INITIALS VT 15:04, REVIEWED BY: AMAURY. EXAMINATION GENERAL EXAMINATION: LUNGS:LUNG SOUNDS ARE CLEAR. HEART:HEART RATE REGULAR. MUSCULOSKELETAL:*, MUSCLE STRENGTH TESTING 5/5 BILATERAL, PALPATION: POSITIVE FOR PAIN OVER L/S SPINE. POSITIVE FOR PAIN OVER L/S PARSPINALS.POSITIVE FOR PAIN OVER BILAT. SIJ, PALPATION: POSITIVE FOR PAIN OVER RIGHT MID THORACIC FACETS.LARGE 6INCH CIRCULAR WELL HEALED INCISON UPPER THORACIC.SPECIFIC POINT TENDERNESS OVER LUMBAR FACET JOINTS WITH FACET LOADING.. DIAGNOSTIC DATA-REVIEWED THORACIC MRI AND L/S MRI. ASSESSMENTS CHRONIC BILATERAL LOW BACK PAIN WITH BILATERAL SCIATICA - M54.42 (PRIMARY) LUMBOSACRAL SPONDYLOSIS WITHOUT MYELOPATHY - M47.817 TREATMENT CHRONIC BILATERAL LOW BACK PAIN WITH BILATERAL SCIATICA CONTINUE COLACE CAPSULE, 100 MG, 1 CAPSULE NEEDED, ORALLY, ONCE A DAY CONTINUE TYLENOL WITH CODEINE #3 TABLET, 300-30 MG, 1, ORALLY, EVERY 6 HRS PRN PAIN MDD3 START GABAPENTIN CAPSULE, 100 MG, DIRECTED, ORALLY, BID, 30 DAY(S), 60, REFILLS 1 [facility] MRI SPINE, L.S. WITHOUT [id number] SILVA 01/04/2017 04:07:06 PM > NO AUTH REQUIRED, MEDICARE PART A B, FAXED TO [facility] PRE[facility]IVE MEDICINE PAIN CLINIC TEACHING: MEDICATIONS GABAPENTIN MEDICATION INFORMATION SHEETS PRINTED AND GIVEN TO PATIENT. PROCEDURE CODES FA211 ESTABILISHED PATIENT [facility] FACILITY CHARGE G8730 PAIN ASSESS POS TOOL F/U PLAN DOC G8427 DOC MEDS VERIFIED W/PT OR RE DISPOSITION & COMMUNICATION FOLLOW UP 4 WEEKS ELECTRONICALLY SIGNED BY GAY ZUNIGA ON 01/17/2017 AT 10:34 AM EDT DISCLAIMER : THIS IS A VISIT SUMMARY EXTRACTED FROM THE [employer] CHART. IT IS NOT A COPY OF THE [employer] PROGRESS NOTE. KENISHAD
== END ==
LOC: M PAIN 14:30
PROVIDERS: ATTEND Nurse Practitioner Family
DX: G89.29 Other chronic pain (principal); M54.42 Lumbago with sciatica, left side; M47.817 Spondylosis without myelopathy or radiculopathy, lumbosacral region; E11.9 Type 2 diabetes mellitus without complications; I12.9 Hypertensive chronic kidney disease with stage 1 through stage 4 chronic kidney disease, or unspecified chronic kidney disease; N18.3 Chronic kidney disease, stage 3 (moderate); E78.2 Mixed hyperlipidemia; K21.9 Gastro-esophageal reflux disease without esophagitis; K59.00 Constipation, unspecified; G43.809 Other migraine, not intractable, without status migrainosus; J30.2 Other seasonal allergic rhinitis; F31.9 Bipolar disorder, unspecified; E66.01 Morbid (severe) obesity due to excess calories; Z68.37 Body mass index [BMI] 37.0-37.9, adult; Z88.8 Allergy status to other drugs, medicaments and biological substances; Z79.01 Long term (current) use of anticoagulants; Z79.4 Long term (current) use of insulin; Z79.899 Other long term (current) drug therapy; Z87.891 Personal history of nicotine dependence

== ENCOUNTER 2017-01-16 11:27 | Emergency (ER) | payer MEDICARE, MEDICAID ==
[~2017-01-16] VITALS: Ht 154.9 cm; Wt 101.4 kg
[~2017-01-16 11:27] MED LIST changes: -GABA-279; -LIDOCAINE-PRILOCAINE; -LISI40TAB; -NORC1TAB4 PO
[2017-01-16] MEDS ORDERED: GABA-279 (11:38)
[2017-01-16] MEDS ORDERED: LIDOCAINE-PRILOCAINE (11:38)
[2017-01-16] MEDS ORDERED: FENO48TA2 (11:38)
[2017-01-16] MEDS ORDERED: LISI40TAB (11:38)
--- NOTE | 2017-01-16 13:38 | REP ---
Left foot four views : There is no fracture or dislocation. Mineralization and joint spaces are normal. There are no calcifications or foreign bodies. Impression: Negative left foot . Signed by Michael Aguirre MD 01/16/2017 01:30 P
--- NOTE | 2017-01-16 13:39 | REP ---
Right knee five views: There is no fracture or dislocation. There is medial compartment osteoarthritis. There is no effusion. There are no calcifications or foreign bodies. No fracture or dislocation. Impression: Medial compartment osteoarthritis. No fracture, dislocation or effusion. Signed by Michael Aguirre MD 01/16/2017 01:31 P
[2017-01-16] MEDS ORDERED: NORC1TAB4 PO (13:45)
[2017-01-16 13:55] VITALS: BP 155/78
== END 2017-01-16 13:55 | disposition home or self-care (01) ==
LOC: M ED 11:27
DX: S80.01XA Contusion of right knee, initial encounter (principal); S90.32XA Contusion of left foot, initial encounter; W01.198A Fall on same level from slipping, tripping and stumbling with subsequent striking against other object, initial encounter; Y92.89 Other specified places as the place of occurrence of the external cause; Y93.89 Activity, other specified; Y99.8 Other external cause status; Z87.891 Personal history of nicotine dependence; Z79.4 Long term (current) use of insulin; Z79.899 Other long term (current) drug therapy; Z88.8 Allergy status to other drugs, medicaments and biological substances

== ENCOUNTER → 2017-03-06 | Outpatient (CLI) | payer MEDICARE, MEDICAID | LOC: M PAIN 09:45 | DX: G89.29 Other chronic pain (principal); M47.817 Spondylosis without myelopathy or radiculopathy, lumbosacral region; E78.5 Hyperlipidemia, unspecified; E11.319 Type 2 diabetes mellitus with unspecified diabetic retinopathy without macular edema; E11.22 Type 2 diabetes mellitus with diabetic chronic kidney disease; I12.9 Hypertensive chronic kidney disease with stage 1 through stage 4 chronic kidney disease, or unspecified chronic kidney disease; N18.3 Chronic kidney disease, stage 3 (moderate); F31.9 Bipolar disorder, unspecified; J30.89 Other allergic rhinitis; Z79.01 Long term (current) use of anticoagulants; Z79.4 Long term (current) use of insulin; Z79.899 Other long term (current) drug therapy; Z88.8 Allergy status to other drugs, medicaments and biological substances; Z86.73 Personal history of transient ischemic attack (TIA), and cerebral infarction without residual deficits; Z87.891 Personal history of nicotine dependence | CPT/HCPCS: G0463 ==

== ENCOUNTER → 2017-03-14 | Outpatient (CLI) | payer MEDICARE, MEDICAID ==
[~2017-03-14] MED LIST changes: -/ESCI20TA OR; -/INSULEV SC; -ABIL10TA OR; -ABIL20TA2 OR; -ACET30TAB PO; -ACTO30TA OR; -ACTO45TA12 PO; -ALBU17IN2 IN; -ALBU83IN INH; -AMLO10TA2 PO; -ASPI325T OR; -ASPI81TA3 OR; -ATEN25TA PO; -ATEN50TA2 PO; -BAYE1TAB PO; +BUPIVACAINE HCL 0.25% 10 ML VIAL As Ordered; +BUPIVACAINE HCL 0.25% 30 ML VIAL As Ordered; -CALC600T7 PO; -CLOP75TA2 PO; -COLA100C5 PO; -CRES40TA OR; -DRIS50002 PO; -FENO48TA2; -FLEXERIL PO; -FLON0.054; -FURO20TA2 PO; -GLUC1000 OR; -GLUC850T OR; -HUMA100I3 SC; -HUMALOG INSULIN SC; -HUMALOG SC; -HUMALOG SUBQ; -HYDR25TA6 OR; -IBUP800T OR; -INSUDET SC; -INSUH10VL INJ; -INSUHUMDS SC; +ISOVUE-M 300 61% 15ML VIAL (Q9967) As Ordered; -K-TA10TA2 PO; -KEFL500C17 PO; -KLON1TAB OR; -KLOR1TAB69 PO; -LAMI1TAB7 PO; -LAMI25TA OR; -LASI20TA OR; -LASI20TA PO; -LATU1TAB PO; -LATU80TA PO; -LEVE1INJ5 SC; -LEXA1TAB2 PO; -LEXA5TAB13 PO; -LIDO1OIN2 TOP; -LISI-538 PO; -LISI20TA5 OR; -LISI40TA OR; -MAGN400T5 PO; -MAGN500T2 OR; -METF10004 PO; -NOVOINJ3 SQ; -OMEP40CA2 PO; -OXYB5TAB10 PO; -PIOG45TA4 PO; -PLAV75TA2 OR; -PRAV80TA PO; -PRAV80TA2 PO; -PRIL40CA PO; -PYRI1TAB5 PO; -RANI150C PO; -RISP2TAB12 OR; -RISP3TAB16 OR; -TOPA100T12 PO; -TRAZ50TA OR; +TRIAMCINOLONE ACETONIDE SUSP 40 MG/ML VIAL (J3301) As Ordered; -TRIC145T19 OR; -TYLE325T5 PO; -VALT500T OR; -VESI5TAB2 PO; -VICO5TAB16 PO; -VICT18IN SC; -VITA-121 PO; -ZOCO40TA OR; -ZOFR20TA PO; -ZOLO100T OR; -ZONI50CA3 PO; -ZYRT10CA PO; -[UNRECOGNIZED DRUG - OTHER] INH; +diazePAM 5 MG TAB As Ordered; -levemir SUBQ; -magnesium oxide PO; +methylPREDNISolone SUSP 40 MG/ML (DEPO-medrol) VIAL (J1030) As Ordered; -norco PO; +oxyCODONE 5MG TAB As Ordered; -vesicare PO
== END ==
LOC: M PAIN 15:00
DX: G89.29 Other chronic pain (principal); M79.1 Myalgia; E78.5 Hyperlipidemia, unspecified; E11.22 Type 2 diabetes mellitus with diabetic chronic kidney disease; E11.3292 Type 2 diabetes mellitus with mild nonproliferative diabetic retinopathy without macular edema, left eye; I12.9 Hypertensive chronic kidney disease with stage 1 through stage 4 chronic kidney disease, or unspecified chronic kidney disease; A60.09 Herpesviral infection of other urogenital tract; J45.909 Unspecified asthma, uncomplicated; F31.9 Bipolar disorder, unspecified; M51.34 Other intervertebral disc degeneration, thoracic region; M51.36 Other intervertebral disc degeneration, lumbar region; N18.3 Chronic kidney disease, stage 3 (moderate); Z87.891 Personal history of nicotine dependence; Z79.899 Other long term (current) drug therapy; Z86.73 Personal history of transient ischemic attack (TIA), and cerebral infarction without residual deficits; Z79.4 Long term (current) use of insulin; Z79.82 Long term (current) use of aspirin; Z88.8 Allergy status to other drugs, medicaments and biological substances
CPT/HCPCS: J3301

== ENCOUNTER → 2017-03-29 | Outpatient (CLI) | payer MEDICARE, MEDICAID | LOC: M PAIN 09:15 | DX: G89.29 Other chronic pain (principal); M47.817 Spondylosis without myelopathy or radiculopathy, lumbosacral region; S22.000S Wedge compression fracture of unspecified thoracic vertebra, sequela; E78.5 Hyperlipidemia, unspecified; I12.9 Hypertensive chronic kidney disease with stage 1 through stage 4 chronic kidney disease, or unspecified chronic kidney disease; E11.319 Type 2 diabetes mellitus with unspecified diabetic retinopathy without macular edema; N18.3 Chronic kidney disease, stage 3 (moderate); I63.9 Cerebral infarction, unspecified; J45.909 Unspecified asthma, uncomplicated; F31.9 Bipolar disorder, unspecified; Z88.8 Allergy status to other drugs, medicaments and biological substances; Z79.01 Long term (current) use of anticoagulants; Z79.4 Long term (current) use of insulin; Z79.82 Long term (current) use of aspirin; Z79.899 Other long term (current) drug therapy; Z86.73 Personal history of transient ischemic attack (TIA), and cerebral infarction without residual deficits; Z87.891 Personal history of nicotine dependence | CPT/HCPCS: G0463 ==

== ENCOUNTER → 2017-04-28 | Outpatient (CLI) | payer MEDICARE, MEDICAID | LOC: M PAIN 13:15 | DX: M47.817 Spondylosis without myelopathy or radiculopathy, lumbosacral region (principal); Z53.9 Procedure and treatment not carried out, unspecified reason ==

== ENCOUNTER → 2017-05-04 | Outpatient (CLI) | payer MEDICARE, MEDICAID ==
[~2017-05-04] MED LIST changes: -ISOVUE-M 300 61% 15ML VIAL (Q9967) As Ordered; -methylPREDNISolone SUSP 40 MG/ML (DEPO-medrol) VIAL (J1030) As Ordered
== END ==
LOC: M PAIN 13:15
DX: G89.29 Other chronic pain (principal); M25.511 Pain in right shoulder; M25.512 Pain in left shoulder; M54.6 Pain in thoracic spine; M54.5 Low back pain; M79.1 Myalgia; E11.22 Type 2 diabetes mellitus with diabetic chronic kidney disease; E11.319 Type 2 diabetes mellitus with unspecified diabetic retinopathy without macular edema; I12.9 Hypertensive chronic kidney disease with stage 1 through stage 4 chronic kidney disease, or unspecified chronic kidney disease; N18.3 Chronic kidney disease, stage 3 (moderate); E78.5 Hyperlipidemia, unspecified; F31.9 Bipolar disorder, unspecified; J45.909 Unspecified asthma, uncomplicated; Z79.01 Long term (current) use of anticoagulants; Z79.4 Long term (current) use of insulin; Z79.82 Long term (current) use of aspirin; Z79.899 Other long term (current) drug therapy; Z88.8 Allergy status to other drugs, medicaments and biological substances; Z86.73 Personal history of transient ischemic attack (TIA), and cerebral infarction without residual deficits
CPT/HCPCS: J3301

== ENCOUNTER → 2017-05-09 | Outpatient (REF) | payer MEDICARE, MEDICAID ==
[2017-05-09 12:50] LABS: APPEARANCE, URINE HAZY (CLEAR); BACTERIA, URINE AUTO 1+ (NEGATIVE); BILIRUBIN, URINE AUTO NEGATIVE (NEGATIVE); BLOOD, URINE BLOOD NEGATIVE (NEGATIVE); COLOR, URINE YELLOW (YELLOW); GLUCOSE, URINE (UA) AUTO NEGATIVE (NEGATIVE); KETONE, URINE AUTO NEGATIVE (NEGATIVE); LEUKOCYTE ESTERASE, URINE AUTO 2+ (NEGATIVE); NITRITE, URINE AUTO NEGATIVE (NEGATIVE); PROTEIN, URINE AUTO NEGATIVE (NEGATIVE); RBC, URINE AUTO 4 /HPF (0-3); SPECIFIC GRAVITY URINE AUTO 1.016 (1.002-1.035); SQUAMOUS EPITHELIAL CELL UR AU 2 /HPF (0-6); UROBILINOGEN, URINE AUTO 0.2 mg/dL (0.0-2.0); WBC, URINE AUTO 17 /HPF (0-3)
== END ==
LOC: M SFHCADAM 12:13
DX: R30.0 Dysuria (principal)
CPT/HCPCS: 81001

== ENCOUNTER → 2017-06-01 | Outpatient (CLI) | payer MEDICARE, MEDICAID | LOC: M PAIN 09:00 | DX: M47.817 Spondylosis without myelopathy or radiculopathy, lumbosacral region (principal); E87.5 Hyperkalemia; E11.9 Type 2 diabetes mellitus without complications; I10 Essential (primary) hypertension; F32.9 Major depressive disorder, single episode, unspecified; K21.9 Gastro-esophageal reflux disease without esophagitis; Z79.82 Long term (current) use of aspirin; Z79.4 Long term (current) use of insulin; Z79.899 Other long term (current) drug therapy; Z88.8 Allergy status to other drugs, medicaments and biological substances; J30.2 Other seasonal allergic rhinitis; Z87.891 Personal history of nicotine dependence; Z86.73 Personal history of transient ischemic attack (TIA), and cerebral infarction without residual deficits | CPT/HCPCS: G0463 ==

== ENCOUNTER → 2017-06-21 | Outpatient (CLI) | payer MEDICARE, MEDICAID ==
[~2017-06-21] MED LIST changes: -BUPIVACAINE HCL 0.25% 10 ML VIAL As Ordered; +ISOVUE-M 300 61% 15ML VIAL (Q9967) As Ordered; +LIDOCAINE 1% SDV INJ 30 ML VIAL As Ordered
== END ==
LOC: M PAIN 10:00
DX: G89.29 Other chronic pain (principal); M47.816 Spondylosis without myelopathy or radiculopathy, lumbar region; M47.817 Spondylosis without myelopathy or radiculopathy, lumbosacral region; E78.5 Hyperlipidemia, unspecified; I12.9 Hypertensive chronic kidney disease with stage 1 through stage 4 chronic kidney disease, or unspecified chronic kidney disease; E11.319 Type 2 diabetes mellitus with unspecified diabetic retinopathy without macular edema; E11.22 Type 2 diabetes mellitus with diabetic chronic kidney disease; N18.3 Chronic kidney disease, stage 3 (moderate); F31.9 Bipolar disorder, unspecified; J45.909 Unspecified asthma, uncomplicated; Z79.01 Long term (current) use of anticoagulants; Z79.4 Long term (current) use of insulin; Z79.82 Long term (current) use of aspirin; Z79.899 Other long term (current) drug therapy; Z88.8 Allergy status to other drugs, medicaments and biological substances; Z86.73 Personal history of transient ischemic attack (TIA), and cerebral infarction without residual deficits; Z87.891 Personal history of nicotine dependence
CPT/HCPCS: J3301

== ENCOUNTER → 2017-07-03 | Outpatient (REF) | payer MEDICARE, MEDICAID | LOC: M SFHCWAGY 10:23 | DX: Z12.4 Encounter for screening for malignant neoplasm of cervix (principal); N95.8 Other specified menopausal and perimenopausal disorders | CPT/HCPCS: G0123 ==

== ENCOUNTER → 2017-07-03 | Outpatient (CLI) | payer MEDICARE, MEDICAID | LOC: M WHC 10:09 | DX: Z12.31 Encounter for screening mammogram for malignant neoplasm of breast (principal); Z01.419 Encounter for gynecological examination (general) (routine) without abnormal findings (principal); Z12.4 Encounter for screening for malignant neoplasm of cervix; N95.8 Other specified menopausal and perimenopausal disorders | CPT/HCPCS: 77067; G0123 ==

== ENCOUNTER 2017-07-26 19:36 | Emergency (ER) | payer MEDICARE, MEDICAID ==
[2017-07-26 20:59] LABS: BASO % 0.4 % (0.0-1.0); EOS # 0.2 10^3/uL (0.0-0.50); EOS % 2.2 % (0.0-3.0); HEMATOCRIT 34.1 % (36.0-47.0); IMMATURE GRANULOCYTE % 0.7 % (0-3.0); LYMPH # 1.9 10^3/uL (1.5-4.5); LYMPH % 17.6 % (24.0-44.0); MEAN CORPUSCULAR HEMOGLOBIN 27.6 pg (27.0-33.0); MEAN CORPUSCULAR HGB CONC 32.3 g/dl (32.0-36.5); MEAN CORPUSCULAR VOLUME 85.7 fl (80.0-96.0); MONO # 0.8 10^3/uL (0.0-0.8); MONO % 7.3 % (0.0-5.0); NEUTROPHILS # 7.8 10^3/uL (1.8-7.7); NEUTROPHILS % 71.8 % (36.0-66.0); PLATELET COUNT, AUTOMATED 257 10^3/uL (150-450); RED BLOOD COUNT 3.98 10^6/uL (4.00-5.40); RED CELL DISTRIBUTION WIDTH 13.6 % (11.5-14.5); WHITE BLOOD COUNT 10.9 10^3/uL (4.0-10.0)
[2017-07-26] MEDS: NS 500 ML IV ×2 (21:00→22:30)
[2017-07-26 21:18] LABS: ALBUMIN 3.3 GM/DL (3.2-5.2); ALBUMIN/GLOBULIN RATIO 0.77 (1.00-1.93); ALKALINE PHOSPHATASE 117 U/L (45-117); ALT/SGPT 19 U/L (12-78); ANION GAP 7 MEQ/L (8-16); AST/SGOT 13 U/L (7-37); BILIRUBIN,DIRECT < 0.1 MG/DL (0.0-0.2); BILIRUBIN,TOTAL 0.2 MG/DL (0.2-1.0); BLOOD UREA NITROGEN 30 MG/DL (7-18); CALCIUM LEVEL 9.4 MG/DL (8.5-10.1); CARBON DIOXIDE LEVEL 28 MEQ/L (21-32); CHLORIDE LEVEL 105 MEQ/L (98-107); CREATININE FOR GFR 1.56 MG/DL (0.55-1.30); FREE THYROXINE INDEX 3.9 % (1.3-4.8); GLOMERULAR FILTRATION RATE 37.1 (>51); GLUCOSE, FASTING 112 MG/DL (70-100); POTASSIUM SERUM 4.1 MEQ/L (3.5-5.1); SODIUM LEVEL 140 MEQ/L (136-145); T UPTAKE 33 % (30-39); THYROXINE (T4) 11.9 UG/DL (4.5-12.0); TOTAL PROTEIN 7.6 GM/DL (6.4-8.2)
[2017-07-26 21:59] LABS: APPEARANCE, URINE CLEAR (CLEAR); BACTERIA, URINE AUTO 1+ (NEGATIVE); BILIRUBIN, URINE AUTO NEGATIVE (NEGATIVE); BLOOD, URINE BLOOD NEGATIVE (NEGATIVE); COLOR, URINE YELLOW (YELLOW); GLUCOSE, URINE (UA) AUTO NEGATIVE (NEGATIVE); KETONE, URINE AUTO NEGATIVE (NEGATIVE); LEUKOCYTE ESTERASE, URINE AUTO NEGATIVE (NEGATIVE); MUCUS, URINE SMALL (NEGATIVE); NITRITE, URINE AUTO POSITIVE (NEGATIVE); PROTEIN, URINE AUTO NEGATIVE (NEGATIVE); RBC, URINE AUTO 1 /HPF (0-3); SQUAMOUS EPITHELIAL CELL UR AU 1 /HPF (0-6); UROBILINOGEN, URINE AUTO 0.2 mg/dL (0.0-2.0); WBC, URINE AUTO 1 /HPF (0-3)
== END 2017-07-26 23:33 | disposition home or self-care (01) ==
LOC: M ED 19:36
DX: R42 Dizziness and giddiness (principal); R53.1 Weakness; I45.10 Unspecified right bundle-branch block; I10 Essential (primary) hypertension; E11.9 Type 2 diabetes mellitus without complications; E78.5 Hyperlipidemia, unspecified; F31.9 Bipolar disorder, unspecified; F41.9 Anxiety disorder, unspecified; K21.9 Gastro-esophageal reflux disease without esophagitis; M54.9 Dorsalgia, unspecified; G89.29 Other chronic pain; G43.909 Migraine, unspecified, not intractable, without status migrainosus; Z86.73 Personal history of transient ischemic attack (TIA), and cerebral infarction without residual deficits; Z87.891 Personal history of nicotine dependence; Z88.8 Allergy status to other drugs, medicaments and biological substances; Z79.899 Other long term (current) drug therapy; Z79.02 Long term (current) use of antithrombotics/antiplatelets; Z79.4 Long term (current) use of insulin
CPT/HCPCS: 93005

== ENCOUNTER → 2017-08-08 | Outpatient (REF) | payer MEDICARE, MEDICAID ==
[2017-08-08 13:17] LABS: APPEARANCE, URINE HAZY (CLEAR); BACTERIA, URINE AUTO NEGATIVE (NEGATIVE); BILIRUBIN, URINE AUTO NEGATIVE (NEGATIVE); BLOOD, URINE BLOOD NEGATIVE (NEGATIVE); COLOR, URINE YELLOW (YELLOW); GLUCOSE, URINE (UA) AUTO 1+ mg/dL (NEGATIVE); KETONE, URINE AUTO NEGATIVE (NEGATIVE); LEUKOCYTE ESTERASE, URINE AUTO NEGATIVE (NEGATIVE); NITRITE, URINE AUTO NEGATIVE (NEGATIVE); PROTEIN, URINE AUTO NEGATIVE (NEGATIVE); RBC, URINE AUTO 1 /HPF (0-3); SPECIFIC GRAVITY URINE AUTO 1.019 (1.002-1.035); SQUAMOUS EPITHELIAL CELL UR AU 6 /HPF (0-6); UROBILINOGEN, URINE AUTO 0.2 mg/dL (0.0-2.0); WBC, URINE AUTO 3 /HPF (0-3)
[2017-08-16 12:42] LABS: BEDSIDE GLUCOSE 144 MG/DL (70-105)
== END ==
LOC: M SFHCADAM 11:13
DX: Z09 Encounter for follow-up examination after completed treatment for conditions other than malignant neoplasm (principal); Z87.440 Personal history of urinary (tract) infections; Z79.899 Other long term (current) drug therapy
CPT/HCPCS: 81001

== ENCOUNTER 2017-08-14 06:22 | Day surgery (SDC) | payer MEDICARE, MEDICAID ==
[~2017-08-14 06:22] MED LIST changes: +ACETAMINOPHEN 325 MG TAB PO; -BUPIVACAINE HCL 0.25% 30 ML VIAL As Ordered; -ISOVUE-M 300 61% 15ML VIAL (Q9967) As Ordered; -LIDOCAINE 1% SDV INJ 30 ML VIAL As Ordered; +SLF 3 ML SYR IV; -TRIAMCINOLONE ACETONIDE SUSP 40 MG/ML VIAL (J3301) As Ordered; -diazePAM 5 MG TAB As Ordered; -oxyCODONE 5MG TAB As Ordered
[2017-08-14] MEDS: PHENYLEPHRINE 2.5% OPHTH SOL 2ML OS (06:54)
[2017-08-14] MEDS: OFLOXACIN 0.3 % (OCUFLOX) OPTH SOL 5ML OS (06:54)
[2017-08-14] MEDS: CYCLOPENTOLATE 2% OPHTH SOLN 2ML BTL OS (06:54)
[2017-08-14] MEDS: TROPICAMIDE 1% OPHTH SOLN 2ML OS (06:54)
[2017-08-14] MEDS: LIDOCAINE 3.5 % 1ML OPHTH TOPICAL GEL OU (06:55)
[2017-08-14] MEDS ORDERED: PHENYLEPHRINE HCL 10 % OPHTH. SOL 5ML OS (07:00)
[2017-08-14] MEDS: HEALON DUET (HEALON 10MG/ML 0.55ML & HEALON ENDOCOAT 30MG/ML 0.85ML) As Ordered ×2 (07:44→08:11)
[2017-08-14] MEDS ORDERED: fentaNYL 100 MCG/2 ML INJECTION (J3010) As Ordered (07:53)
[2017-08-14] MEDS ORDERED: MIDAZOLAM INJ 2 MG/2 ML VIAL (J2250) As Ordered (07:53)
[2017-08-14] MEDS: TRIAMCINOLONE PRES FR 40 MG/ML 1ML(TRIESENCE)(OR EYE ONLY)(J3300 PER 1MG) As Ordered (08:10)
[2017-08-14] MEDS: POVIDONE-IODINE 5% OPHTH PREP SOL 30ML As Ordered (08:10)
[2017-08-14] MEDS: LIDOCAINE 2% W/EPIN INJ 20ML **PRES FREE As Ordered (08:11)
[2017-08-14] MEDS: MOXIFLOXACIN IN BSS 0.25MG/0.25ML INTRACAMERAL INJ (OR EYE ONLY)(J2280) As Ordered (08:11)
[2017-08-14] MEDS: BSS with VANC/TOB/EPI for EYE CASES IR (08:11)
[2017-08-14] MEDS: LIDOCAINE 1% SDV 5 ML VIAL As Ordered (08:11)
[2017-08-14] MEDS ORDERED: ONDANSETRON 4MG/2ML VIAL (J2405) IV (08:30)
[2017-08-14] MEDS ORDERED: LR 1,000 ML IV (08:30)
[2017-08-14] MEDS: AcetaZOLAMIDE 500 MG ER CAP PO (08:39)
[2017-08-14] MEDS ORDERED: ACETAMINOPHEN TAB 650MG DOSE (2X325MG) PO (08:45)
[2017-08-14] MEDS ORDERED: TRIMETHOBENZAMIDE 300 MG CAP PO (08:45)
== END 2017-08-14 09:40 | disposition home or self-care (01) ==
LOC: M SDC 06:22
DX: H26.9 Unspecified cataract (principal); E78.5 Hyperlipidemia, unspecified; E11.3292 Type 2 diabetes mellitus with mild nonproliferative diabetic retinopathy without macular edema, left eye; N18.3 Chronic kidney disease, stage 3 (moderate); E11.22 Type 2 diabetes mellitus with diabetic chronic kidney disease; I12.9 Hypertensive chronic kidney disease with stage 1 through stage 4 chronic kidney disease, or unspecified chronic kidney disease; F31.9 Bipolar disorder, unspecified; J45.909 Unspecified asthma, uncomplicated; K57.92 Diverticulitis of intestine, part unspecified, without perforation or abscess without bleeding; K21.9 Gastro-esophageal reflux disease without esophagitis; M19.90 Unspecified osteoarthritis, unspecified site; G43.909 Migraine, unspecified, not intractable, without status migrainosus; R06.83 Snoring; Z86.73 Personal history of transient ischemic attack (TIA), and cerebral infarction without residual deficits; M46.94 Unspecified inflammatory spondylopathy, thoracic region; M51.06 Intervertebral disc disorders with myelopathy, lumbar region; M48.061 Spinal stenosis, lumbar region without neurogenic claudication; Z87.891 Personal history of nicotine dependence; Z88.8 Allergy status to other drugs, medicaments and biological substances; Z87.440 Personal history of urinary (tract) infections; Z79.899 Other long term (current) drug therapy; Z79.02 Long term (current) use of antithrombotics/antiplatelets; Z79.4 Long term (current) use of insulin
CPT/HCPCS: 66984

== ENCOUNTER → 2017-09-11 | Outpatient (CLI) | payer MEDICARE, MEDICAID | LOC: M PAIN 13:30 | DX: M47.817 Spondylosis without myelopathy or radiculopathy, lumbosacral region (principal); S22.000S Wedge compression fracture of unspecified thoracic vertebra, sequela; E78.5 Hyperlipidemia, unspecified; E11.3392 Type 2 diabetes mellitus with moderate nonproliferative diabetic retinopathy without macular edema, left eye; I12.9 Hypertensive chronic kidney disease with stage 1 through stage 4 chronic kidney disease, or unspecified chronic kidney disease; N18.3 Chronic kidney disease, stage 3 (moderate); J45.909 Unspecified asthma, uncomplicated; F31.9 Bipolar disorder, unspecified; M19.90 Unspecified osteoarthritis, unspecified site; Z79.01 Long term (current) use of anticoagulants; Z79.4 Long term (current) use of insulin; Z79.82 Long term (current) use of aspirin; Z79.899 Other long term (current) drug therapy; Z88.8 Allergy status to other drugs, medicaments and biological substances; Z86.73 Personal history of transient ischemic attack (TIA), and cerebral infarction without residual deficits; Z87.891 Personal history of nicotine dependence | CPT/HCPCS: G0463 ==

== ENCOUNTER 2017-09-18 09:44 | Outpatient (RCR) | payer MEDICARE, MEDICAID | END 2017-09-23 | LOC: M PT 09:44 | DX: Z51.89 Encounter for other specified aftercare (principal); M54.17 Radiculopathy, lumbosacral region | CPT/HCPCS: 97163 ==

== ENCOUNTER 2017-10-03 10:24 | Outpatient (RCR) | payer MEDICARE, MEDICAID | END 2017-10-24 | LOC: M PT 10:24 | DX: Z51.89 Encounter for other specified aftercare (principal); M54.17 Radiculopathy, lumbosacral region | CPT/HCPCS: 97110 ==

== ENCOUNTER → 2017-10-03 | Outpatient (REF) | payer MEDICARE, MEDICAID ==
[2017-10-03 17:32] LABS: FERRITIN 41 NG/ML (8-252); IRON (FE) 40 UG/DL (50-170); PERCENT SATURATION 10.6 % (13.2-45.0); TOTAL IRON BINDING CAPACITY 376 UG/DL (250-450)
== END ==
LOC: M LAB REF 16:54
DX: N39.0 Urinary tract infection, site not specified (principal); D63.1 Anemia in chronic kidney disease; N18.3 Chronic kidney disease, stage 3 (moderate)
CPT/HCPCS: 83550

== ENCOUNTER 2017-10-26 10:51 | Outpatient (RCR) | payer MEDICARE, MEDICAID | END 2017-11-24 | LOC: M PT 10:51 | DX: M54.17 Radiculopathy, lumbosacral region (principal); Z51.89 Encounter for other specified aftercare | CPT/HCPCS: 97110 ==

== ENCOUNTER → 2017-11-02 | Outpatient (CLI) | payer MEDICARE, MEDICAID ==
[2017-11-02 14:09] LABS: CHOLESTEROL LEVEL 180 MG/DL (<200); CHOLESTEROL RISK RATIO 4.285 (<5); HDL CHOLESTEROL 42 MG/DL (>40); NON-HDL-C 138 MG/DL; TRIGLYCERIDES LEVEL 155 MG/DL (<150)
== END ==
LOC: M ADAMS 09:20
DX: E78.00 Pure hypercholesterolemia, unspecified (principal)
CPT/HCPCS: 80061

== ENCOUNTER 2017-11-28 10:57 | Emergency (ER) | payer MEDICARE, MEDICAID ==
[2017-11-28] MEDS: NS 1,000 ML IV (13:00)
[2017-11-28] MEDS: ONDANSETRON 4MG/2ML VIAL (J2405) IV (13:00)
[2017-11-28 13:08] LABS: BASO % 0.1 % (0.0-1.0); EOS # 0.2 10^3/uL (0.0-0.50); EOS % 2.2 % (0.0-3.0); HEMATOCRIT 38.6 % (36.0-47.0); HEMOGLOBIN 12.6 g/dl (12.0-15.5); IMMATURE GRANULOCYTE % 0.3 % (0-3.0); LYMPH # 1.3 10^3/uL (1.5-4.5); LYMPH % 15.1 % (24.0-44.0); MEAN CORPUSCULAR HEMOGLOBIN 27.4 pg (27.0-33.0); MEAN CORPUSCULAR HGB CONC 32.6 g/dl (32.0-36.5); MEAN CORPUSCULAR VOLUME 83.9 fl (80.0-96.0); MONO # 0.7 10^3/uL (0.0-0.8); MONO % 8.2 % (0.0-5.0); NEUTROPHILS # 6.5 10^3/uL (1.8-7.7); NEUTROPHILS % 74.1 % (36.0-66.0); PLATELET COUNT, AUTOMATED 235 10^3/uL (150-450); RED CELL DISTRIBUTION WIDTH 13.3 % (11.5-14.5); WHITE BLOOD COUNT 8.8 10^3/uL (4.0-10.0)
[2017-11-28 13:34] LABS: ALBUMIN 3.5 GM/DL (3.2-5.2); ALKALINE PHOSPHATASE 140 U/L (45-117); ALT/SGPT 21 U/L (12-78); ANION GAP 8 MEQ/L (8-16); AST/SGOT 10 U/L (7-37); BILIRUBIN,DIRECT 0.1 MG/DL (0.0-0.2); BILIRUBIN,TOTAL 0.5 MG/DL (0.2-1.0); BLOOD UREA NITROGEN 16 MG/DL (7-18); CALCIUM LEVEL 9.3 MG/DL (8.5-10.1); CARBON DIOXIDE LEVEL 24 MEQ/L (21-32); CHLORIDE LEVEL 105 MEQ/L (98-107); CREATININE FOR GFR 1.28 MG/DL (0.55-1.30); GLOMERULAR FILTRATION RATE 46.4 (>51); GLUCOSE, FASTING 251 MG/DL (70-100); LIPASE 123 U/L (73-393); POTASSIUM SERUM 3.9 MEQ/L (3.5-5.1); SODIUM LEVEL 137 MEQ/L (136-145); TOTAL PROTEIN 7.9 GM/DL (6.4-8.2)
[2017-11-28 13:54] LABS: PROTEIN, URINE MANUAL REFLEX NEGATIVE (NEGATIVE); SP GRAVITY,URINE MANUAL REFLEX 1.025 (1.002-1.035)
[2017-11-28 13:55] LABS: BILIRUBIN, URINE MANUAL NEGATIVE (NEGATIVE); BLOOD URINE MANUAL RFX POSITIVE (NEGATIVE); GLUCOSE, URINE (UA) MANUAL 1+(100 MG/DL) mg/dL (NEGATIVE); KETONE, URINE MANUAL NEGATIVE (NEGATIVE); MICROSCOPIC INDICATED? RFX YES (NO); NITRITE, URINE MANUAL RFX TRACE (NEGATIVE); UROBILINOGEN, URINE MANUAL NORMAL (NORMAL)
[2017-11-28 13:58] LABS: BACTERIA, URINE SMALL AMOUNT; HYALINE CAST, URINE NONE SEEN /lpf (0-1); MICROSCOPIC EXAM PERFORMED; RBC, URINE 0-1 /hpf (0-3); SQUAMOUS EPITHELIAL CELL URINE SMALL AMOUNT /hpf (SMALL AMT); WBC, URINE MAN RFX 0-1 /hpf (0-3)
[2017-11-28] MEDS: ACETAMINOPHEN TAB 650MG DOSE (2X325MG) PO (15:17)
[2017-11-28] MEDS: VANCOMYCIN ORAL SOL 250MG/5ML ORAL SYRINGE PO (16:39)
== END 2017-11-28 16:48 | disposition home or self-care (01) ==
LOC: M ED 10:57
DX: R19.7 Diarrhea, unspecified (principal); R11.2 Nausea with vomiting, unspecified; B96.7 Clostridium perfringens [C. perfringens] as the cause of diseases classified elsewhere; E11.9 Type 2 diabetes mellitus without complications; I12.9 Hypertensive chronic kidney disease with stage 1 through stage 4 chronic kidney disease, or unspecified chronic kidney disease; N18.3 Chronic kidney disease, stage 3 (moderate); G43.909 Migraine, unspecified, not intractable, without status migrainosus; F25.9 Schizoaffective disorder, unspecified; Z86.73 Personal history of transient ischemic attack (TIA), and cerebral infarction without residual deficits; Z79.899 Other long term (current) drug therapy; Z79.4 Long term (current) use of insulin; Z88.8 Allergy status to other drugs, medicaments and biological substances
CPT/HCPCS: J2405

== ENCOUNTER → 2017-12-12 | Outpatient (CLI) | payer MEDICARE, MEDICAID ==
[~2017-12-12] MED LIST changes: -ACETAMINOPHEN 325 MG TAB PO; +BUPIVACAINE HCL 0.25% 30 ML VIAL As Ordered; +ISOVUE-M 300 61% 15ML VIAL (Q9967) As Ordered; +LIDOCAINE 1% SDV INJ 30 ML VIAL As Ordered; -SLF 3 ML SYR IV; +TRIAMCINOLONE ACETONIDE SUSP 40 MG/ML VIAL (J3301) As Ordered; +diazePAM 5 MG TAB As Ordered; +oxyCODONE 5MG TAB As Ordered
== END ==
LOC: M PAIN 10:00
DX: M47.816 Spondylosis without myelopathy or radiculopathy, lumbar region (principal); M47.817 Spondylosis without myelopathy or radiculopathy, lumbosacral region; E78.5 Hyperlipidemia, unspecified; E11.22 Type 2 diabetes mellitus with diabetic chronic kidney disease; E11.3292 Type 2 diabetes mellitus with mild nonproliferative diabetic retinopathy without macular edema, left eye; N18.3 Chronic kidney disease, stage 3 (moderate); I12.9 Hypertensive chronic kidney disease with stage 1 through stage 4 chronic kidney disease, or unspecified chronic kidney disease; J45.909 Unspecified asthma, uncomplicated; F31.9 Bipolar disorder, unspecified; M51.34 Other intervertebral disc degeneration, thoracic region; M51.26 Other intervertebral disc displacement, lumbar region; Z79.4 Long term (current) use of insulin; Z79.82 Long term (current) use of aspirin; Z79.02 Long term (current) use of antithrombotics/antiplatelets; Z79.899 Other long term (current) drug therapy; Z87.891 Personal history of nicotine dependence; Z88.8 Allergy status to other drugs, medicaments and biological substances
CPT/HCPCS: J3301

== ENCOUNTER → 2017-12-20 | Outpatient (REF) | payer MEDICARE, MEDICAID ==
[2017-12-20 20:04] LABS: HEMATOCRIT 40.7 % (36.0-47.0); HEMOGLOBIN 13.4 g/dl (12.0-15.5); MEAN CORPUSCULAR HEMOGLOBIN 27.4 pg (27.0-33.0); MEAN CORPUSCULAR HGB CONC 32.9 g/dl (32.0-36.5); MEAN CORPUSCULAR VOLUME 83.2 fl (80.0-96.0); PLATELET COUNT, AUTOMATED 267 10^3/uL (150-450); RED BLOOD COUNT 4.89 10^6/uL (4.00-5.40); RED CELL DISTRIBUTION WIDTH 13.4 % (11.5-14.5); WHITE BLOOD COUNT 14.6 10^3/uL (4.0-10.0)
[2017-12-20 20:19] LABS: ALBUMIN 3.6 GM/DL (3.2-5.2); ALBUMIN/GLOBULIN RATIO 0.88 (1.00-1.93); ALKALINE PHOSPHATASE 161 U/L (45-117); ALT/SGPT 19 U/L (12-78); ANION GAP 12 MEQ/L (8-16); AST/SGOT 10 U/L (7-37); BILIRUBIN,TOTAL 0.4 MG/DL (0.2-1.0); BLOOD UREA NITROGEN 26 MG/DL (7-18); CALCIUM LEVEL 9.6 MG/DL (8.5-10.1); CARBON DIOXIDE LEVEL 24 MEQ/L (21-32); CHLORIDE LEVEL 100 MEQ/L (98-107); CREATININE FOR GFR 1.41 MG/DL (0.55-1.30); GLOMERULAR FILTRATION RATE 41.5 (>51); GLUCOSE, FASTING 349 MG/DL (70-100); POTASSIUM SERUM 4.6 MEQ/L (3.5-5.1); SODIUM LEVEL 136 MEQ/L (136-145); TOTAL PROTEIN 7.7 GM/DL (6.4-8.2)
== END ==
LOC: M SFHCADAM 11:37
DX: Z86.19 Personal history of other infectious and parasitic diseases (principal)
CPT/HCPCS: 80053

== ENCOUNTER → 2018-01-16 | Outpatient (CLI) | payer MEDICARE, MEDICAID | LOC: M PAIN 11:00 | DX: M47.817 Spondylosis without myelopathy or radiculopathy, lumbosacral region (principal); E78.5 Hyperlipidemia, unspecified; E11.22 Type 2 diabetes mellitus with diabetic chronic kidney disease; E11.319 Type 2 diabetes mellitus with unspecified diabetic retinopathy without macular edema; N18.3 Chronic kidney disease, stage 3 (moderate); F31.9 Bipolar disorder, unspecified; I12.9 Hypertensive chronic kidney disease with stage 1 through stage 4 chronic kidney disease, or unspecified chronic kidney disease; Z86.73 Personal history of transient ischemic attack (TIA), and cerebral infarction without residual deficits; J45.909 Unspecified asthma, uncomplicated; A60.09 Herpesviral infection of other urogenital tract; M51.26 Other intervertebral disc displacement, lumbar region; Z90.49 Acquired absence of other specified parts of digestive tract; Z88.8 Allergy status to other drugs, medicaments and biological substances; Z79.4 Long term (current) use of insulin; Z79.82 Long term (current) use of aspirin; Z79.02 Long term (current) use of antithrombotics/antiplatelets; Z79.899 Other long term (current) drug therapy | CPT/HCPCS: G0463 ==

== ENCOUNTER → 2018-01-26 | Outpatient (CLI) | payer MEDICARE, MEDICAID ==
[~2018-01-26] MED LIST changes: -BUPIVACAINE HCL 0.25% 30 ML VIAL As Ordered; +GASTROGRAFIN SOLUTION 30ML (Q9963) As Ordered; +ISOVUE-370 76% 100ML VIAL (Q9967) As Ordered; -ISOVUE-M 300 61% 15ML VIAL (Q9967) As Ordered; -LIDOCAINE 1% SDV INJ 30 ML VIAL As Ordered; -TRIAMCINOLONE ACETONIDE SUSP 40 MG/ML VIAL (J3301) As Ordered; -diazePAM 5 MG TAB As Ordered; -oxyCODONE 5MG TAB As Ordered
[2018-01-26 11:22] LABS: ANION GAP 8 MEQ/L (8-16); BLOOD UREA NITROGEN 16 MG/DL (7-18); CALCIUM LEVEL 9.8 MG/DL (8.5-10.1); CARBON DIOXIDE LEVEL 31 MEQ/L (21-32); CHLORIDE LEVEL 100 MEQ/L (98-107); CREATININE FOR GFR 1.13 MG/DL (0.55-1.30); GLOMERULAR FILTRATION RATE 53.6 (>51); GLUCOSE, FASTING 142 MG/DL (70-100); POTASSIUM SERUM 3.8 MEQ/L (3.5-5.1); SODIUM LEVEL 139 MEQ/L (136-145)
== END ==
LOC: M RAD 09:51
DX: K57.30 Diverticulosis of large intestine without perforation or abscess without bleeding (principal); R19.7 Diarrhea, unspecified; Z98.890 Other specified postprocedural states; Z23 Encounter for immunization
CPT/HCPCS: Q9963

== ENCOUNTER → 2018-01-29 | Outpatient (REF) | payer MEDICARE, MEDICAID | LOC: M LAB REF 11:22 | DX: R19.7 Diarrhea, unspecified (principal) | CPT/HCPCS: 87507 ==

== ENCOUNTER → 2018-03-15 | Outpatient (CLI) | payer MEDICARE, MEDICAID ==
[~2018-03-15] MED LIST changes: +/ESCI20TA OR; +/INSULEV SC; +ABIL10TA OR; +ABIL1INJ2; +ABIL20TA2 OR; +ACET30TAB PO; +ACTO30TA OR; +ACTO45TA12 PO; +ALBU17IN2 IN; +ALBU83IN INH; +AMLO10TA4 PO; +ASPI325T OR; +ASPI81TA3 OR; +ATEN25TA PO; +ATEN50TA2 PO; +BAYE1TAB PO; +CALC600T7 PO; +CLOP75TA2 PO; +COLA100C5 PO; +CRES40TA OR; +DIFI200T; +DRIS50003 PO; +EFFE150C2 PO; +FENO48TA2; +FENO48TA2 PO; +FLEXERIL PO; +FLON0.054; +FURO20TA2 PO; +GABA-1171 PO; -GASTROGRAFIN SOLUTION 30ML (Q9963) As Ordered; +GLUC1000 OR; +GLUC850T OR; +HUMA100I3 SC; +HUMALOG INSULIN SC; +HUMALOG SC; +HUMALOG SUBQ; +HYDR25TA6 OR; +IBUP800T OR; +INSUDET SC; +INSUH10VL INJ; +INSUHUMDS SC; +INVE234I; -ISOVUE-370 76% 100ML VIAL (Q9967) As Ordered; +K-TA10TA2 PO; +KEFL500C17 PO; +KLON1TAB OR; +KLOR1TAB69 PO; +LAMI1TAB7 PO; +LAMI25TA OR; +LASI20TA OR; +LASI20TA PO; +LATU1TAB PO; +LATU80TA PO; +LEVE1INJ5 SC; +LEXA1TAB2 PO; +LEXA5TAB13 PO; +LIDO1OIN2 TOP; +LIDOCAINE-PRILOCAINE TOP; +LISI-538 PO; +LISI20TA5 OR; +LISI40TA OR; +LISI40TAB; +MACR100C43 PO; +MAGN400T5 PO; +MAGN500T2 OR; +METF10004 PO; +NORC1TAB4 PO; +NOVOINJ3 SQ; +OMEP40CA2 PO; +OXYB5TAB10 PO; +PIOG1TAB55 PO; +PLAV75TA2 OR; +POTA1TAB23; +PRAV80TA PO; +PRAV80TA2 PO; +PRIL40CA PO; +PYRI1TAB5 PO; +RANI150C PO; +RISP2TAB12 OR; +RISP3TAB16 OR; +TOPA100T12 PO; +TRAZ50TA OR; +TRIC145T19 OR; +TYLE325T5 PO; +VALT500T OR; +VANC1CAP6 PO; +VESI5TAB2 PO; +VICO5TAB16 PO; +VICT18IN SC; +VITA-121 PO; +ZOCO40TA OR; +ZOFR4TAB16 PO; +ZOLO100T OR; +ZONI50CA3 PO; +ZYRT10CA PO; +[UNRECOGNIZED DRUG - OTHER] INH; +levemir SUBQ; +magnesium oxide PO; +norco PO; +vesicare PO
--- NOTE | 2018-03-15 19:16 | REP ---
Pelvic sonography: History: Postmenopausal bleeding. Comparison CT study January 26, 2018. Findings: Transabdominal and transvaginal scanning are performed. Uterine dimensions are normal at 8.0 x 2.5 x 5.1 cm. Endometrial echo 0.4 cm thick. There is a 1.0 cm hypoechoic anterior myometrial fibroid. Visualized urinary bladder ramirez are smooth and unremarkable. Normal ovaries are seen. Right ovary dimensions are 1.7 x 1.4 x 1.4 cm. Left ovary measures 1.7 x 2.3 cm. Impression: There is a 1.0 cm anterior myometrial fibroid. Otherwise no significant abnormality.
== END ==
LOC: M WHC 12:55
PROVIDERS: ATTEND Nurse Practitioner Women's Health
DX: D25.1 Intramural leiomyoma of uterus (principal); N95.0 Postmenopausal bleeding

== ENCOUNTER 2018-03-21 10:23 | Emergency (ER) | payer MEDICARE, MEDICAID ==
[~2018-03-21] VITALS: Ht 152.4 cm; Wt 99.1 kg
[~2018-03-21 10:23] MED LIST changes: -ABIL1INJ2; +AMLO10TA4 PO; -AMLO10TA5 PO; -DIFI200T; +LASI20TA PO; -LASI20TA3 PO; -LISI40TA; +LISI40TAB; -MACR100C43 PO; -PROM25TA12 PO
[2018-03-21] MEDS ORDERED: ABIL1INJ2 (10:33)
[2018-03-21 12:07] LABS: BASO % 0.1 % (0.0-1.0); EOS # 0.2 10^3/uL (0.0-0.50); EOS % 1.4 % (0.0-3.0); HEMATOCRIT 40.7 % (36.0-47.0); HEMOGLOBIN 13.4 g/dl (12.0-15.5); LYMPH # 1.4 10^3/uL (1.5-4.5); LYMPH % 7.8 % (24.0-44.0); MEAN CORPUSCULAR HEMOGLOBIN 27.6 pg (27.0-33.0); MEAN CORPUSCULAR HGB CONC 32.9 g/dl (32.0-36.5); MEAN CORPUSCULAR VOLUME 83.9 fl (80.0-96.0); MONO # 0.9 10^3/uL (0.0-0.8); NEUTROPHILS % 84.8 % (36.0-66.0); PLATELET COUNT, AUTOMATED 249 10^3/uL (150-450); RED BLOOD COUNT 4.85 10^6/uL (4.00-5.40); WHITE BLOOD COUNT 17.7 10^3/uL (4.0-10.0)
[2018-03-21 13:14] LABS: ALBUMIN 3.2 GM/DL (3.2-5.2); BILIRUBIN,DIRECT 0.1 MG/DL (0.0-0.2); BILIRUBIN,TOTAL 0.7 MG/DL (0.2-1.0); CALCIUM LEVEL 8.3 MG/DL (8.5-10.1); CREATININE FOR GFR 1.44 MG/DL (0.55-1.30); GLOMERULAR FILTRATION RATE 40.5 (>51); POTASSIUM SERUM 4.4 MEQ/L (3.5-5.1); TOTAL PROTEIN 6.9 GM/DL (6.4-8.2)
[2018-03-21] MEDS ORDERED: ISOVUE-370 76% 100ML VIAL (Q9967) As Ordered ONE (13:18)
[2018-03-21] MEDS ORDERED: HumuLIN R (REGULAR) INSULIN (NovoLIN R) **100U/ML** PER UNIT SC STA (13:24)
--- NOTE | 2018-03-21 13:52 | REP ---
Clinical: Lower abdominal pain with diarrhea. Technique: Axial contrast enhanced images from the lung bases to the pubic symphysis using 100 ml Isovue 370 intravenous contrast material with coronal and sagittal re-formations. Comparison: 01/26/2018. Findings: Lung bases are clear. Visualized heart and pericardium normal. Fatty infiltration of the liver noted without focal hepatic lesion. Spleen, pancreas, bilateral adrenal glands and kidneys are normal. Evidence of prior cholecystectomy. The enteric system is without obstruction or acute inflammatory process. Normal terminal ileum and appendix are identified in the right lower quadrant. Scattered sigmoid diverticula noted without acute diverticulitis. Pelvis demonstrates normal bladder and age-appropriate uterus/adnexa. No ascites. No free air. No adenopathy. Abdominal aorta and vasculature without aneurysm or dissection. Musculoskeletal structures without focal osseous abnormality. Impression: 1. Hepatic steatosis. 2. Few sigmoid diverticula without acute diverticulitis. 3. No acute abdominopelvic pathology appreciated. Electronically Signed by Shukri Burris MD 03/21/2018 01:43 P
[2018-03-21] MEDS ORDERED: MACR100C43 PO (14:18)
[2018-03-21 14:38] VITALS: BP 128/79
[2018-03-21 14:57] LABS: HEMOGLOBIN A1c 9.8 %
--- NOTE | 2018-03-24 08:38 | ED PDOC ---
Post-Departure Follow-Up radiology report faxed to Candy Lorenz MD Mar 24, 2018 08:38
[2018-03-31] MEDS ORDERED: DIFI200T (11:57)
== END 2018-03-21 15:09 | disposition home or self-care (01) ==
LOC: M ED 10:23
DX: N30.90 Cystitis, unspecified without hematuria (principal); E11.649 Type 2 diabetes mellitus with hypoglycemia without coma; I12.9 Hypertensive chronic kidney disease with stage 1 through stage 4 chronic kidney disease, or unspecified chronic kidney disease; J45.909 Unspecified asthma, uncomplicated; N18.3 Chronic kidney disease, stage 3 (moderate); F33.9 Major depressive disorder, recurrent, unspecified; F41.9 Anxiety disorder, unspecified; A60.09 Herpesviral infection of other urogenital tract; Z87.19 Personal history of other diseases of the digestive system; Z79.899 Other long term (current) drug therapy; Z79.4 Long term (current) use of insulin; Z88.8 Allergy status to other drugs, medicaments and biological substances
CPT/HCPCS: 36415; 74177; 80048; 80076; 81001; 82150; 83036; 83690; 85025; 87088; 87186; 99284; Q9967

== ENCOUNTER → 2018-03-21 | Outpatient (REF) | payer MEDICARE, MEDICAID ==
[~2018-03-21] MED LIST changes: -AMLO10TA4 PO; +AMLO10TA5 PO; -LASI20TA PO; +LASI20TA3 PO; +LISI40TA; -LISI40TAB; +PROM25TA12 PO
== END ==
LOC: M LAB REF 14:14
PROVIDERS: ATTEND Physician Assistant
DX: R19.7 Diarrhea, unspecified (principal)

== ENCOUNTER 2018-04-11 10:18 | Emergency (ER) | payer MEDICARE, MEDICAID ==
[~2018-04-11] VITALS: Ht 152.4 cm; Wt 99.1 kg
[~2018-04-11 10:18] MED LIST changes: +ABIL1INJ2; -AMLO10TA4 PO; +AMLO10TA5 PO; +DIFI200T; -LASI20TA PO; +LASI20TA3 PO; +LISI40TA; -LISI40TAB; +MACR100C43 PO
[2018-04-11] MEDS ORDERED: NS 1,000 ML IV ONE (10:45)
[2018-04-11 11:13] LABS: BASO % 0.2 % (0.0-1.0); EOS # 0.8 10^3/uL (0.0-0.50); EOS % 7.9 % (0.0-3.0); HEMATOCRIT 37.8 % (36.0-47.0); LYMPH # 1.5 10^3/uL (1.5-4.5); LYMPH % 15.3 % (24.0-44.0); MEAN CORPUSCULAR HEMOGLOBIN 27.1 pg (27.0-33.0); MEAN CORPUSCULAR HGB CONC 31.7 g/dl (32.0-36.5); MEAN CORPUSCULAR VOLUME 85.5 fl (80.0-96.0); MONO # 0.5 10^3/uL (0.0-0.8); MONO % 4.7 % (0.0-5.0); NEUTROPHILS # 7.2 10^3/uL (1.8-7.7); NEUTROPHILS % 71.5 % (36.0-66.0); PLATELET COUNT, AUTOMATED 239 10^3/uL (150-450); RED BLOOD COUNT 4.42 10^6/uL (4.00-5.40)
[2018-04-11 11:43] LABS: ALBUMIN 3.3 GM/DL (3.2-5.2); BILIRUBIN,DIRECT 0.1 MG/DL (0.0-0.2); BILIRUBIN,TOTAL 0.5 MG/DL (0.2-1.0); CALCIUM LEVEL 8.7 MG/DL (8.5-10.1); CREATININE FOR GFR 1.03 MG/DL (0.55-1.30); GLOMERULAR FILTRATION RATE 59.7 (>51); TOTAL PROTEIN 6.8 GM/DL (6.4-8.2)
[2018-04-11] MEDS ORDERED: PROMETHAZINE INJ 25 MG/ML VIAL (J2550) IV ONE (12:30)
[2018-04-11] MEDS ORDERED: ISOVUE-370 76% 100ML VIAL (Q9967) As Ordered ONE (12:57)
--- NOTE | 2018-04-11 14:09 | REP ---
CT abdomen and pelvis with IV but without oral contrast: History: Left lower quadrant pain. Comparison CT study March 21, 2018. CT contrast dose: 100 mL of intravenous Isovue [address] findings: Preliminary digital hand kiss setter radiograph is unremarkable. The lung bases are clear. There is some mild to moderate diffuse fatty infiltration of the liver, most pronounced near the falciform ligament. This is unchanged. There is a subtle low density area in the left lobe 1.9 cm in diameter compatible with hemangioma. This it is unchanged from June 13, 2016 prior study. No significant liver lesion is seen. The spleen is unremarkable, homogeneous in texture. No adrenal lesion is seen. The pancreas has an intact appearance. Gallbladder surgically absent. Kidneys enhance symmetrically and are morphologically intact. No retroperitoneal mass or adenopathy is seen. A normal appendix is seen over the iliac vessels in the right superior pelvis. No uterine or adnexal pathology is seen. Urinary bladder is unremarkable. No evidence of free air or abnormal fluid collection is seen. No abdominal wall defect is appreciated. There is a single diverticulum posteriorly at the cecum which is unchanged from prior study and contains some opaque material. There is no evidence to suggest diverticulitis. There are solitary air and fluid filled loop of small bowel which is at the upper range of normal in size, 3.2 cm diameter. No obstructive lesion is seen however. This is nonspecific. Impression: There are a few small bowel air-fluid levels with one minimally dilated small bowel loop. No obstructive lesion seen. Normal appendix noted. No mass or adenopathy seen. Electronically Signed by Doug Shane MD 04/11/2018 07:39 P
[2018-04-11] MEDS ORDERED: PROM25TA12 PO (14:58)
[2018-04-11 15:05] VITALS: BP 140/64
--- NOTE | 2018-04-12 07:31 | ECGEPIP ---
Stationary ECG Study [facility] - ED Test Date: 2018-04-11 Pat Name: PRUDENCIO SHAHID Department: Room: - Gender: F [employer]: TK : 1965 Requested By: Candy Bearden Order Number: [id number] Reading MD: Vitaly Reyes Measurements Intervals [place] Rate: 97 P: 65 [place]: 211 QRS: -73 QRSD: 140 T: 58 QT: 393 QTc: 501 Interpretive Statements SINUS RHYTHM WITH FIRST DEGREE AV BLOCK RIGHT BUNDLE BRANCH BLOCK LEFT ANTERIOR FASCICULAR BLOCK MINIMAL VOLTAGE CRITERIA FOR LVH, CONSIDER NORMAL VARIANT SIMILAR TO 07/26/17 Electronically Signed On 04-12-2018 7:30:56 EST by Vitaly Ryees
== END 2018-04-11 15:09 | disposition home or self-care (01) ==
LOC: EDBD 10:18 → M ED 10:18
DX: R11.2 Nausea with vomiting, unspecified (principal); R19.7 Diarrhea, unspecified
CPT/HCPCS: 74177; 80048; 80076; 83690; 85025; 93005; 96361; 96374; 99285; Q9967

== ENCOUNTER 2018-04-29 17:39 | Emergency (ER) | payer MEDICARE, MEDICAID ==
[~2018-04-29] VITALS: Ht 152.4 cm; Wt 100.9 kg
[~2018-04-29 17:39] MED LIST changes: +PROM25TA12 PO
[2018-04-29] MEDS ORDERED: NS 1,000 ML IV ONE (18:45)
[2018-04-29] MEDS ORDERED: ONDANSETRON 4MG/2ML VIAL (J2405) IV ONE (18:45)
[2018-04-29 19:13] LABS: BASO % 0.2 % (0.0-1.0); EOS # 0.6 10^3/uL (0.0-0.50); EOS % 4.9 % (0.0-3.0); HEMATOCRIT 38.2 % (36.0-47.0); HEMOGLOBIN 12.3 g/dl (12.0-15.5); LYMPH # 1.8 10^3/uL (1.5-4.5); LYMPH % 15.8 % (24.0-44.0); MEAN CORPUSCULAR HEMOGLOBIN 27.5 pg (27.0-33.0); MEAN CORPUSCULAR HGB CONC 32.2 g/dl (32.0-36.5); MEAN CORPUSCULAR VOLUME 85.3 fl (80.0-96.0); MONO # 0.5 10^3/uL (0.0-0.8); MONO % 4.8 % (0.0-5.0); NEUTROPHILS # 8.4 10^3/uL (1.8-7.7); NEUTROPHILS % 73.8 % (36.0-66.0); PLATELET COUNT, AUTOMATED 246 10^3/uL (150-450); RED BLOOD COUNT 4.48 10^6/uL (4.00-5.40); WHITE BLOOD COUNT 11.3 10^3/uL (4.0-10.0)
[2018-04-29 19:29] LABS: APPEARANCE, URINE HAZY (CLEAR); BACTERIA, URINE AUTO NEGATIVE (NEGATIVE); BILIRUBIN, URINE AUTO NEGATIVE (NEGATIVE); BLOOD, URINE BLOOD NEGATIVE (NEGATIVE); COLOR, URINE YELLOW (YELLOW); GLUCOSE, URINE (UA) AUTO NEGATIVE (NEGATIVE); KETONE, URINE AUTO NEGATIVE (NEGATIVE); LEUKOCYTE ESTERASE, URINE AUTO TRACE (NEGATIVE); MUCUS, URINE SMALL (NEGATIVE); NITRITE, URINE AUTO NEGATIVE (NEGATIVE); PROTEIN, URINE AUTO NEGATIVE (NEGATIVE); RBC, URINE AUTO 3 /HPF (0-3); SPECIFIC GRAVITY URINE AUTO 1.018 (1.002-1.035); SQUAMOUS EPITHELIAL CELL UR AU 2 /HPF (0-6); UROBILINOGEN, URINE AUTO 0.2 mg/dL (0.0-2.0); WBC, URINE AUTO 4 /HPF (0-3)
[2018-04-29 19:47] LABS: ALBUMIN 3.2 GM/DL (3.2-5.2); BILIRUBIN,DIRECT 0.1 MG/DL (0.0-0.2); BILIRUBIN,TOTAL 0.4 MG/DL (0.2-1.0); CALCIUM LEVEL 8.3 MG/DL (8.5-10.1); CREATININE FOR GFR 1.18 MG/DL (0.55-1.30); POTASSIUM SERUM 3.9 MEQ/L (3.5-5.1); TOTAL PROTEIN 6.8 GM/DL (6.4-8.2)
[2018-04-29] MEDS ORDERED: ONDA4TAB6 PO (20:52)
[2018-04-29] MEDS ORDERED: VANC125C2 PO (20:52)
[2018-04-29] MEDS ORDERED: VANCOMYCIN ORAL SOL 250MG/5ML ORAL SYRINGE PO ONE (21:00)
[2018-04-29 21:20] VITALS: BP 142/78
== END 2018-04-29 21:29 | disposition home or self-care (01) ==
LOC: M ED 17:39
DX: A04.72 Enterocolitis due to Clostridium difficile, not specified as recurrent (principal); G43.909 Migraine, unspecified, not intractable, without status migrainosus; E78.00 Pure hypercholesterolemia, unspecified; I10 Essential (primary) hypertension; J45.909 Unspecified asthma, uncomplicated; E11.9 Type 2 diabetes mellitus without complications; K57.32 Diverticulitis of large intestine without perforation or abscess without bleeding; N18.3 Chronic kidney disease, stage 3 (moderate); M54.9 Dorsalgia, unspecified; F41.9 Anxiety disorder, unspecified; F32.9 Major depressive disorder, single episode, unspecified; F25.0 Schizoaffective disorder, bipolar type; Z86.19 Personal history of other infectious and parasitic diseases; Z86.73 Personal history of transient ischemic attack (TIA), and cerebral infarction without residual deficits; Z88.8 Allergy status to other drugs, medicaments and biological substances; Z79.4 Long term (current) use of insulin; Z87.891 Personal history of nicotine dependence; Z79.899 Other long term (current) drug therapy
CPT/HCPCS: 80048; 80076; 81001; 83690; 85025; 87507; 96361; 96374; 99284; J2405

== ENCOUNTER → 2018-05-10 | Outpatient (REF) | payer MEDICARE, MEDICAID ==
[~2018-05-10] MED LIST changes: +ONDA4TAB6 PO; +VANC125C2 PO
== END ==
LOC: M SFHCADAM 12:11
PROVIDERS: ATTEND Physician Assistant
DX: R19.7 Diarrhea, unspecified (principal)

== ENCOUNTER → 2018-05-22 | Outpatient (CLI) | payer MEDICARE, MEDICAID ==
[~2018-05-22] MED LIST changes: +ABIL1INJ IM; +ASPI1TAB PO; +CALC600T57 PO; +DITR1TAB PO; +FENO145T13 PO; +FLON1SPR; +LIDO2.5C15 EX; +MAGN400T PO; +POTA10TA16 PO; +VITA100067 PO; +VITA50005 PO; +ZOFR4SOL PO; +ZYRT10CA5 PO
--- NOTE | 2018-06-04 00:31 | ECWPNPC ---
PATIENT NAME: PRUDENCIO SHAHID : 1965 GENDER: FEMALE VISIT DATE: 05/22/2018 DISCHARGE DATE: 05/22/18 1203 VISIT LOCKED DATE TIME: PHYSICIAN: YULISSA STAUFFER RESOURCE: YULISSA STAUFFER REASON FOR APPOINTMENT 1. LOW BACK HISTORY OF PRESENT ILLNESS HISTORY OF PRESENT ILLNESS: HERE FOR F/U OF CHRONIC LOW BACK PAIN.HAS BEEN HAVING SEVERE INCREASE IN LOW BACK PAIN OVER THE PAST MONTH.RATING PAIN VA 8/10.REPORTING NEW ONSET OF RIGHT POSTERIOR INTERMITTENT PAIN.ALSO REPORTS FALLING A FEW MONTHS AGO BUT STATES SHE DIDNT HURT HER BACK.HAS BEEN LIMPING. PAIN THE PATIENT DESCRIBES THE PAIN... FALL RISK SCREENING: SCREENING : NO FALLS IN THE PAST YEAR. CURRENT MEDICATIONS TAKING HUMALOG 100 UNIT/ML SOLUTION SLIDING SCALE, IF BLOOD SUGAR IS 150 PT TAKES 10 UNITS, IF IT IS HIGHER THAN THAT 12 UNITS SUBCUTANEOUS SLIDING SCALE, MDD 24 UNITS TAKING LEVEMIR FLEXPEN 100 UNIT/ML SOLUTION 18 UNITS SUBCUTANEOUS TWICE A DAY TAKING VICTOZA 18 MG/3ML SOLUTION PEN-INJECTOR 1.8 ML SUBCUTANEOUS ONCE A DAY TAKING AMLODIPINE BESYLATE 2.5 MG TABLET 1 TABLET ORALLY ONCE A DAY TAKING LISINOPRIL 20 MG TABLET 1 TABLET ORALLY ONCE A DAY TAKING ACTOS 45MG TABLET 1 TABLET ORALLY ONCE A DAY TAKING DRISDOL 72931 UNIT CAPSULE 1 CAPSULE ORALLY WEEKLY TAKING MAGNESIUM OXIDE 400 MG TABLET 1 TABLET ORALLY ONCE A DAY TAKING ZONISAMIDE 25 MG CAPSULE 1 CAPSULES ORALLY BEFORE BEDTIME TAKING ATENOLOL 50 MG TABLET 1 TABLET ORALLY ONCE A DAY TAKING ASPIR-81 81 MG TABLET DELAYED RELEASE 1 TABLET ORALLY ONCE A DAY TAKING CALCIUM 600 + D 600-400 MG-UNIT TABLET 1 TABLET ORALLY ONCE A DAY TAKING MAY HAVE - - DIRECTED PATIENT WOULD BENEFIT FROM A MOTORCYLES FINAL INSPECTOR ANIMAL DUE TO PSHCYOLOGICAL AND CARDIAC ISSUES TAKING EFFEXOR XR 75 MG CAPSULE EXTENDED RELEASE 24 HOUR 1 CAPSULE WITH FOOD ORALLY ONCE A DAY TAKING CETIRIZINE HCL 10MG TABLET TAKE ONE TABLET BY MOUTH ONCE DAILY NEEDED TAKING PLAVIX 75 MG TABLET 1 TABLET ORALLY ONCE A DAY TAKING ABILIFY MAINTENA 300 MG PREFILLED SYRINGE INTRAMUSCULAR MONTHLY TAKING PRAVASTATIN SODIUM 40 MG TABLET 1 TABLET ORALLY ONCE A DAY TAKING TYLENOL WITH CODEINE #3 300-30 MG TABLET 1 ORALLY EVERY 6 HRS PRN PAIN MDD3 TAKING COLACE 100 MG CAPSULE 1 CAPSULE NEEDED ORALLY ONCE A DAY TAKING LIDOCAINE-PRILOCAINE 2.5-2.5 % CREAM DIRECTED TO LOW BACK EXTERNALLY TID PRN TAKING GABAPENTIN 100 MG CAPSULE 2 CAPSULES ORALLY BID TAKING RANITIDINE HCL 150MG CAPSULE 1 CAPSULE AT BEDTIME ORALLY TWICE A DAY TAKING FLUCONAZOLE 150 MG TABLET 1 TABLET ORALLY DAILY TAKING ZOFRAN 4 MG TABLET 1 TABLETS ORALLY TWICE A DAY NEEDED FOR NAUSEA/VOMITING TAKING BACID - CAPSULE DIRECTED ORALLY 1 CAP TWICE A AY DISCONTINUED VANCOMYCIN HCL 125 MG CAPSULE 1 CAPSULE ORALLY DAILY MEDICATION LIST REVIEWED AND RECONCILED WITH THE PATIENT PAST MEDICAL HISTORY HYPERLIPIDEMIA DIABETES MELLITUS - WITH NON-PROLIFERATIVE RETINOPATHY LEFT EYE PER CENTER FOR SIGHT 06/2013. 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 DIFFUSE DISC BULGES AT THE L1-2 AND L3-4 LEVELS WITH MINIMAL THECAL SAC. 2. MINIMAL CENTRAL CANAL STENOSIS AT THE L4-5 LEVEL SECONDARY TO DISC BULGE, - CHRONIC PAIN MANAGEMENT THROUGH DR. SO [facility]) CKD STAGE 3 C. 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 COLONOSCOPY EYE LIDS LIFTED COLONOSCOPY 12/07/2015 GALL BLADDER 09/2016 LEFT CATARACT REMOVED 07/2017 FAMILY HISTORY FATHER: MOTHER: SOCIAL HISTORY GENERAL: TOBACCO USE ARE YOU A:FORMER SMOKER HOW LONG HAS IT BEEN SINCE YOU LAST SMOKED?> 10 YEARS BMI CARE GOAL FOLLOW-UP ABOVE NORMAL BMI FOLLOW-UPDIETARY MANAGEMENT EDUCATION, GUIDANCE, AND COUNSELING ALCOHOL SCREENING DID YOU HAVE A DRINK CONTAINING ALCOHOL IN THE PAST YEAR?NO POINTS0 INTERPRETATIONNEGATIVE RECREATIONAL DRUG USE DRUG USE?NO CAFFEINE CAFFEINE USE?YES 1CUP COFFEE SEXUAL HX HAD SEX IN THE LAST 12 MONTHS (VAGINAL, ORAL, OR ANAL)?NO HAVE YOU EVER HAD AN STD?NO LMP:02/2016 HIV / HEP-C SCREENING HIV TEST OFFERED TO PATIENT:YES DATE OFFERED:06/30/2016 TEST ACCEPTED:NO REASON:PATIENT DECLINED BROCHURE PROVIDED TO PATIENTNO [id number] SABIANIST LANGUAGE LANGUAGES SPOKEN:HEBREW LEARNING BARRIERS / SPECIAL NEEDS CHANGE FROM LAST VISIT?NO BARRIERS TO LEARNING?NO HEARING IMPAIRED?NO VISION IMPAIRED?YES :CORRECTIVE LENSES COGNITIVELY IMPAIRED?NO READINESS TO LEARN?YES LEARNING PREFERENCES?NO LEARNING CAPABILITIES PRESENT?YES EMOTIONAL BARRIERS?NO SPECIAL DEVICES?NO RELAY DISPATCHER NEEDED?NO DOMESTIC VIOLENCE DO YOU FEEL SAFE IN YOUR ENVIRONMENT?YES DIET: NO CONCENTRATED SWEETS., CARBOHYDRATE CONTROLLED, LOW FAT, LOW CHOLESTEROL. EXERCISE: WALKS 1 MILE WEATHER PERMITTING. MARITAL STATUS: .. OTHERS AT HOME: CHILD DAUGHTER. PAIN CLINIC PFS, CLERGY, PUBLIC HEALTH REFERRALS PFS REFERRAL NEEDED?NO CLERGY REFERRAL NEEDED?NO PUBLIC HEALTH REFERRAL NEEDED?NO WAS THE PROVIDER NOTIFIED OF ANY PERTINENT INFO?NO N/A HAS THE PATIENT BEEN EDUCATED REGARDING HIS/HER PLAN OF CARE?YES HAS THE PATIENT BEEN EDUCATED REGARDING PAIN, THE RISK FOR PAIN, THE IMPORTANCE OF EFFECTIVE PAIN MANAGEMENT, AND THE PAIN ASSESSMENT PROCESS?YES ADVANCE DIRECTIVE ADVANCE DIRECTIVE DISCUSSED WITH PATIENT:YES PT HAS HCP USMAN ROBERTS [phone] REVIEWED WITH PT 11/13/17 1410 LASREVIEWED WITH PT 12/12/17 1027 LAS. HOSPITALIZATION/MAJOR DIAGNOSTIC PROCEDURE 3 DAYS FOR TIA 06/2013 SURGERIES REVIEW OF SYSTEMS REVIEWED BY: PROVIDER: YULISSA RASHID . CONSTITUTIONAL: ANY CHANGE IN YOUR MEDICAL CONDITION? NO . CHILLS NO . FEVER NO . INFECTION: DO YOU HAVE NEW INFECTIONS? YES, C-DIF TX'D W VANCO, RESOLVED . DO YOU HAVE HISTORY OF MRSA? NO . MUSCULOSKELETAL: ANY NEW PATTERNS OF PAIN OR NUMBNESS? YES, LOW BACK PAIN RADIATING DOWN RIGHT LEG . GASTROENTEROLOGY: ANY NEW CHANGE IN BOWEL CONTROL? YES, DIARRHEA W C-DIFF INFECTIONS, RESOLVED . GENITOURINARY: ANY NEW CHANGE IN BLADDER CONTROL? NO . IS THERE A CHANCE YOU COULD BE ? NO . HEMATOLOGY/LYMPH: DO YOU TAKE ANY BLOOD THINNERS? (FOR EXAMPLE- COUMADIN, PLAVIX, AGGRENOX, PLATEL, PRADAXA, OR XARELTO) YES, PLAVIX . WHEN WAS YOUR LAST DOSE? DATE: TIME: . NEUROLOGY: HAVE YOU FALLEN IN THE PAST 12 MONTHS? NO . ANY NEW EXTREMITY NUMBNESS OR WEAKNESS? NO . CARDIOLOGY: DO YOU HAVE A PACEMAKER OR DEFIBRILLATOR? NO . RESPIRATORY: HAVE YOU BEEN SICK IN THE PAST WEEK? NO . FEVER NO . FLU LIKE SYMPTOMS? NO . COUGH NO . INTEGUMENTARY: DO YOU HAVE ANY RASHES OR OPEN SORES? NO . ALLERGIC/IMMUNO: ARE YOU ALLERGIC TO IV DYE? NO . ANY NEW ALLERGIES? NO . PSYCHIATRIC: DO YOU HAVE THOUGHTS OF HURTING YOURSELF OR SOMEONE ELSE? NO . ARE YOU ABUSED, NEGLECTED, OR IN AN UNSAFE ENVIRONMENT? NO . ENDOCRINOLOGY: ARE YOU DIABETIC? YES . OTHER: DO YOU NEED ANY PRESCRIPTIONS? YES, TYLENOL W CODEINE . IF YES, PLEASE LIST: ____ . ANY NEW PROBLEMS WITH YOUR MEDICATIONS? NO . WHEN DID YOU LAST EAT? ____ . WHEN DID YOU LAST DRINK? ____ . WHAT DID YOU LAST DRINK? ____ . NAME OF PERSON DRIVING YOU HOME? ____ . DO YOU HAVE ANY OTHER QUESTIONS OR CONCERNS YES, HOW SOON CAN I RECEIVE MORE INJECTIONS . VITAL SIGNS WT 223.4 LBS, HT 64.25 IN, BMI 38.04 INDEX, BP 188/91 MM HG, HR 81 /MIN, RR 16 /MIN, TEMP 97.5 F, OXYGEN SAT % 95%, NA INITIALS SC 10:48, REVIEWED BY: EM. EXAMINATION GENERAL EXAMINATION: GENERAL APPEARANCE:ALERT,NO DISTRESS . PSYCHAFFECT NORMAL . LUNGS:LUNG SOUNDS ARE CLEAR . HEART:HEART RATE REGULAR . MUSCULOSKELETAL:MST 5/5 BILAT. LOWER EXTREMITIES . LUMBAR SACRAL SPINE TENDERNESS BILAT. SIJ R>L. DIAGNOSTIC TESTS REVIEWEDMRI L/S SPINE-2015. ASSESSMENTS SACROILIITIS - M46.1 (PRIMARY) TREATMENT SACROILIITIS REFILL TYLENOL WITH CODEINE #3 TABLET, 300-30 MG, 1, ORALLY, EVERY 6 HRS PRN PAIN MDD3, 30 DAY(S), 45, REFILLS 0 REFILL LIDOCAINE-PRILOCAINE CREAM, 2.5-2.5 %, DIRECTED TO LOW BACK, EXTERNALLY, TID PRN, 30 DAY(S), 1, REFILLS 2 NOTES: BILAT. SIJ, ISTOP REGISTRY REVIEWED AND DEMONSTRATES COMPLLIANCE. BRINGS IN MEDICATIONS WHICH IS APPROPRIATE FOR WHAT WAS DISPENSED. RECENT URINE TOXICOLOGY REVIEWED. NO UNAUTHORIZED MEDICATIONS. NO ILLICIT SUBSTANCES AND PRESCRIBED MEDICATIONS WERE PRESENT. , RISKS AND BENEFITS OF NARCOTIC/OPIOD MEDICATIONS WERE REVIEWED WITH PATIENT - THIS INCLUDES BUT IS NOT LIMITED TO RISK OF DEPENDANCE/DEVELOPMENT OF ADDICTION, MOOD DISTURBANCE AND DEPRESSION, OSTEOPOROSIS, HORMONAL AND LABIDAL CHANGES, RESPIRATORY DEPRESSION AND . PATIENT IS ADVISED NOT TO DRIVE OR DRINK ALCOHOL WHILE ON THESE MEDICATIONS. PREVENTIVE MEDICINE PAIN CLINIC TEACHING: PROCEDURE TEACHING PRINTED INFORMATION ON SACROILIAC JOINT BLOCK GIVEN TO AND REVIEWED WITH PT. ALONG WITH PRE-PROCEDURAL INSTRUCTIONS AND PT. VERBALIZED UNDERSTANDING. AD. PROCEDURE CODES FA211 ESTABILISHED PATIENT LOCATED WITHIN [facility] CHARGE DISPOSITION & COMMUNICATION FOLLOW UP POST (REASON: BILAT. SIJ) ELECTRONICALLY SIGNED BY GAY CEDEÑO ON 06/03/2018 AT 03:07 PM EDT DISCLAIMER : THIS IS A VISIT SUMMARY EXTRACTED FROM THE [employer] CHART. IT IS NOT A COPY OF THE [employer] PROGRESS NOTE. MARYLOU
== END ==
LOC: M PAIN 10:30
PROVIDERS: ATTEND Nurse Practitioner Family
DX: M46.1 Sacroiliitis, not elsewhere classified (principal); G89.29 Other chronic pain; E11.319 Type 2 diabetes mellitus with unspecified diabetic retinopathy without macular edema; E11.22 Type 2 diabetes mellitus with diabetic chronic kidney disease; I12.9 Hypertensive chronic kidney disease with stage 1 through stage 4 chronic kidney disease, or unspecified chronic kidney disease; N18.3 Chronic kidney disease, stage 3 (moderate); F31.9 Bipolar disorder, unspecified; J45.909 Unspecified asthma, uncomplicated; Z79.01 Long term (current) use of anticoagulants; Z79.4 Long term (current) use of insulin; Z79.82 Long term (current) use of aspirin; Z79.899 Other long term (current) drug therapy; Z88.8 Allergy status to other drugs, medicaments and biological substances; Z86.73 Personal history of transient ischemic attack (TIA), and cerebral infarction without residual deficits; Z87.891 Personal history of nicotine dependence

== ENCOUNTER 2018-05-30 09:20 | Day surgery (SDC) | payer MEDICARE, MEDICAID ==
[~2018-05-30] VITALS: Ht 152.4 cm; Wt 99.3 kg
[~2018-05-30 09:20] MED LIST changes: +FECAL MICROBIOTA PREPARATION 250 ML BTL (J3590) XX ONE; +NS 1,000 ML IV ONE
[2018-05-30] MEDS ORDERED: PROPOFOL 200 MG/20 ML VIAL As Ordered ONE (11:28)
--- NOTE | 2018-05-30 11:47 | ROOR ---
Patient Name: Monique Spears Procedure Date: 05/30/2018 11:28 AM Date of : 1965 Age: 52 Room: [facility] Gender: Female Note Status: Finalized Procedure: Fecal Microbiota Transplant (Bacteriotherapy) + Total Colonoscopy to Cecum Indications: Fecal transplant for treatment of recurrent Clostridium difficile diarrhea Providers: Igor Wise MD Referring MD: MARY ELLEN Pepper Requesting Provider: Medicines: Monitored Anesthesia Care Complications: No immediate complications. Procedure: Pre-Anesthesia Assessment: - The heart rate, respiratory rate, oxygen saturations, blood pressure, adequacy of pulmonary ventilation, and response to care were monitored throughout the procedure. The Colonoscope was introduced through the anus and advanced to 4 cm into the ileum. The colonoscopy was performed without difficulty. The patient tolerated the procedure well. The quality of the bowel preparation was excellent. Findings: The perianal and digital rectal examinations were normal. No other significant abnormalities were identified in a careful examination of the remainder of the colon. The exam was otherwise without abnormality on direct and retroflexion views. Fecal Microbiota Transplant (Bacteriotherapy): Donor stool was prepared by a third alliance party (purchased) as per protocol. Approximately 250 mL of the emulsified donor stool was instilled in the proximal ileum. A detailed colonoscopic exam could not be performed upon scope withdrawal secondary to limited visibility from the instilled stool. The exam was otherwise without abnormality. Impression: - The examination was otherwise normal on direct and retroflexion views. - The examination was otherwise normal. - Fecal Microbiota Transplant (Bacteriotherapy) performed in the proximal ileum. - No specimens collected. - Otherwise normal to terminal ileum. Recommendation: - Patient has a contact number available for emergencies. The signs and symptoms of potential delayed complications were discussed with the patient. Return to normal activities tomorrow. Written discharge instructions were provided to the patient. - High fiber diet. - Discharge patient to home. - Continue present medications. - Return to GI office in 2 weeks. - The findings and recommendations were discussed with the patient's family. Igor Wise MD Igor Wise MD 05/30/2018 11:46:54 AM This report has been signed electronically. Number of Addenda: 0 Note Initiated On: 05/30/2018 11:28 AM Estimated Blood Loss: Estimated blood loss: none.
[2018-05-30 12:25] VITALS: BP 143/84
== END 2018-05-30 12:46 | disposition home or self-care (01) ==
LOC: M OPP 09:20
PROVIDERS: ATTEND Internal Medicine Gastroenterology
DX: A04.71 Enterocolitis due to Clostridium difficile, recurrent (principal)

== ENCOUNTER → 2018-06-05 | Outpatient (CLI) | payer MEDICARE, MEDICAID ==
[~2018-06-05] MED LIST changes: +BUPIVACAINE HCL 0.25% 30 ML VIAL As Ordered ONE; -FECAL MICROBIOTA PREPARATION 250 ML BTL (J3590) XX ONE; +ISOVUE-M 300 61% 15ML VIAL (Q9967) As Ordered ONE; +LIDOCAINE 1% SDV INJ 30 ML VIAL As Ordered ONE; -NS 1,000 ML IV ONE; +TRIAMCINOLONE ACETONIDE SUSP 40 MG/ML VIAL (J3301) As Ordered ONE; +diazePAM 5 MG TAB As Ordered ONE; +oxyCODONE 5MG TAB As Ordered ONE
--- NOTE | 2018-06-05 18:29 | REP ---
FLUOROSCOPIC GUIDANCE FOR BILATERAL SI JOINT INJECTIONS: 06/05/2018. Clinical history: Low back pain. Findings: Three images from C-arm fluoroscopy provided to Dr. Heller of the pain clinic for bilateral SI joint injections were reviewed. Needle was projecting over the lower aspect of the SI joints on both images and one image with a needle towards the middle aspect of the right SI joint. Fluoroscopy time: 28 seconds. Electronically Signed by Cedric Escobar MD 06/05/2018 08:59 P
--- NOTE | 2018-06-19 02:25 | ECWPNPC ---
PATIENT NAME: PRUDENCIO SHAHID : 1965 GENDER: FEMALE VISIT DATE: 06/05/2018 DISCHARGE DATE: 06/05/18 1609 VISIT LOCKED DATE TIME: PHYSICIAN: PANDA SO MD RESOURCE: PANDA SO MD REASON FOR APPOINTMENT 1. BILAT. SIJ HISTORY OF PRESENT ILLNESS HISTORY OF PRESENT ILLNESS: PAIN THE PATIENT DESCRIBES THE PAIN... FALL RISK SCREENING: SCREENING : NO FALLS IN THE PAST YEAR. CURRENT MEDICATIONS TAKING HUMALOG 100 UNIT/ML SOLUTION SLIDING SCALE, IF BLOOD SUGAR IS 150 PT TAKES 10 UNITS, IF IT IS HIGHER THAN THAT 12 UNITS SUBCUTANEOUS SLIDING SCALE, MDD 24 UNITS, NOTES: 06/04/18@1900 TAKING LEVEMIR FLEXPEN 100 UNIT/ML SOLUTION 18 UNITS SUBCUTANEOUS TWICE A DAY, NOTES: 06/04/18@1100 TAKING VICTOZA 18 MG/3ML SOLUTION PEN-INJECTOR 1.8 ML SUBCUTANEOUS ONCE A DAY, NOTES: 06/04/18@0800 TAKING AMLODIPINE BESYLATE 2.5 MG TABLET 1 TABLET ORALLY ONCE A DAY, NOTES: 0800 TAKING LISINOPRIL 20 MG TABLET 1 TABLET ORALLY ONCE A DAY, NOTES: 0800 TAKING ACTOS 45MG TABLET 1 TABLET ORALLY ONCE A DAY, NOTES: 06/04/18@0900 TAKING DRISDOL 79455 UNIT CAPSULE 1 CAPSULE ORALLY WEEKLY, NOTES: 06/03/18@0900 TAKING MAGNESIUM OXIDE 400 MG TABLET 1 TABLET ORALLY ONCE A DAY, NOTES: 06/04/18@0900 TAKING ZONISAMIDE 25 MG CAPSULE 1 CAPSULES ORALLY BEFORE BEDTIME, NOTES: 06/04/18@2000 TAKING ATENOLOL 50 MG TABLET 1 TABLET ORALLY ONCE A DAY, NOTES: 0900 TAKING ASPIR-81 81 MG TABLET DELAYED RELEASE 1 TABLET ORALLY ONCE A DAY, NOTES: 05/24/18 TAKING CALCIUM 600 + D 600-400 MG-UNIT TABLET 1 TABLET ORALLY ONCE A DAY, NOTES: 06/04/18@0800 TAKING MAY HAVE - - DIRECTED PATIENT WOULD BENEFIT FROM A BACK DIGGER OPERATOR ANIMAL DUE TO PSHCYOLOGICAL AND CARDIAC ISSUES TAKING EFFEXOR XR 75 MG CAPSULE EXTENDED RELEASE 24 HOUR 1 CAPSULE WITH FOOD ORALLY ONCE A DAY, NOTES: 0900 TAKING CETIRIZINE HCL 10MG TABLET TAKE ONE TABLET BY MOUTH ONCE DAILY NEEDED , NOTES: 06/04/18@0800 TAKING PLAVIX 75 MG TABLET 1 TABLET ORALLY ONCE A DAY, NOTES: 05/24/18 TAKING ABILIFY MAINTENA 300 MG PREFILLED SYRINGE INTRAMUSCULAR MONTHLY, NOTES: 05/18/18 TAKING PRAVASTATIN SODIUM 40 MG TABLET 1 TABLET ORALLY ONCE A DAY, NOTES: 09 TAKING COLACE 100 MG CAPSULE 1 CAPSULE NEEDED ORALLY ONCE A DAY, NOTES: NONE RECENTLY TAKING GABAPENTIN 100 MG CAPSULE 2 CAPSULES ORALLY BID, NOTES: 0900 TAKING RANITIDINE HCL 150MG CAPSULE 1 CAPSULE AT BEDTIME ORALLY TWICE A DAY, NOTES: 09 TAKING FLUCONAZOLE 150 MG TABLET 1 TABLET ORALLY DAILY, NOTES: 09 TAKING ZOFRAN 4 MG TABLET 1 TABLETS ORALLY TWICE A DAY NEEDED FOR NAUSEA/VOMITING, NOTES: NONE RECENTLY TAKING TYLENOL WITH CODEINE #3 300-30 MG TABLET 1 ORALLY EVERY 6 HRS PRN PAIN MDD3, NOTES: 06/04/18@2200 TAKING LIDOCAINE-PRILOCAINE 2.5-2.5 % CREAM DIRECTED TO LOW BACK EXTERNALLY TID PRN, NOTES: 06/04/18@1800 DISCONTINUED BACID - CAPSULE DIRECTED ORALLY 1 CAP TWICE A AY MEDICATION LIST REVIEWED AND RECONCILED WITH THE PATIENT PAST MEDICAL HISTORY HYPERLIPIDEMIA DIABETES MELLITUS - WITH NON-PROLIFERATIVE RETINOPATHY LEFT EYE PER CENTER FOR SIGHT 06/2013. 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 DIFFUSE DISC BULGES AT THE L1-2 AND L3-4 LEVELS WITH MINIMAL THECAL SAC. 2. MINIMAL CENTRAL CANAL STENOSIS AT THE L4-5 LEVEL SECONDARY TO DISC BULGE, - CHRONIC PAIN MANAGEMENT THROUGH DR. SO [facility]) CKD STAGE 3 C. DIFF 10/2017 & 11/2017 & 02/2018 RECURRENT UTIS ALLERGIES SEASONAL: NASAL CONGESTION - ALLERGY PEPTO BISMOL: THROAT SWELLS - ALLERGY METFORMIN HCL: CKD - METFORMIN STOPPED BY NEPHRO. 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 1 SON(S) , 2 DAUGHTER(S) - HEALTHY. ONE BROTHER FROM CARDIAC COMPLICATIONDAUGHTERS HAVE DEPRESSION. SOCIAL HISTORY GENERAL: TOBACCO USE ARE YOU A:FORMER SMOKER HOW LONG HAS IT BEEN SINCE YOU LAST SMOKED?> 10 YEARS LATEX QUESTIONNAIRE LATEX ALLERGY : HAVE YOU EVER DEVELOPED ANY TYPE OF REACTION AFTER HANDLING LATEX PRODUCTS SUCH RUBBER GLOVES, CONDOMS, DIAPHRAGMS, BALLOONS, SOCKS, OR UNDERWEAR?NO LATEX ALLERGY : HAVE YOU EVER DEVELOPED ANY TYPE OF REACTION DURING OR AFTER DENTAL APPOINTMENT, VAGINAL/RECTAL EXAMINATION, SURGICAL PROCEDURE, OR ANY OTHER EXPOSURE?NO LATEX RISK : HAVE YOU EVER HAD ANY DIFFICULTY BREATHING OR HIVES AFTER EATING OR HANDLING ANY FRUITS, OR VEGETABLES; SUCH KIWI, BANANAS, STONE FRUITS, OR CHESTNUTSNO LATEX RISK : DO YOU HAVE A PREVIOUS PERSONAL HISTORY OF MORE THAN NINE SURGERIES, SPINA BIFIDA, OR REPEATED CATHERTIZATIONS? NO LATEX RISK : ARE YOU FREQUENTLY EXPOSED TO LATEX PRODUCTS IN YOUR OCCUPATION?NO DATE ASKED : 06/05/2018 BMI CARE GOAL FOLLOW-UP ABOVE NORMAL BMI FOLLOW-UPDIETARY MANAGEMENT EDUCATION, GUIDANCE, AND COUNSELING ALCOHOL SCREENING DID YOU HAVE A DRINK CONTAINING ALCOHOL IN THE PAST YEAR?NO POINTS0 INTERPRETATIONNEGATIVE RECREATIONAL DRUG USE DRUG USE?NO CAFFEINE CAFFEINE USE?YES 1CUP COFFEE SEXUAL HX HAD SEX IN THE LAST 12 MONTHS (VAGINAL, ORAL, OR ANAL)?NO HAVE YOU EVER HAD AN STD?NO LMP:02/2016 HIV / HEP-C SCREENING HIV TEST OFFERED TO PATIENT:YES DATE OFFERED:06/30/2016 TEST ACCEPTED:NO REASON:PATIENT DECLINED BROCHURE PROVIDED TO PATIENTNO JEW [id number] FAITH LANGUAGE LANGUAGES SPOKEN:MARTINIQUAIS LEARNING BARRIERS / SPECIAL NEEDS CHANGE FROM LAST VISIT?NO BARRIERS TO LEARNING?NO HEARING IMPAIRED?NO VISION IMPAIRED?YES :CORRECTIVE LENSES COGNITIVELY IMPAIRED?NO READINESS TO LEARN?YES LEARNING PREFERENCES?NO LEARNING CAPABILITIES PRESENT?YES EMOTIONAL BARRIERS?NO SPECIAL DEVICES?NO MICROPHONE OPERATOR NEEDED?NO DOMESTIC VIOLENCE DO YOU FEEL SAFE IN YOUR ENVIRONMENT?YES DIET: NO CONCENTRATED SWEETS., CARBOHYDRATE CONTROLLED, LOW FAT, LOW CHOLESTEROL. EXERCISE: WALKS 1 MILE WEATHER PERMITTING. MARITAL STATUS: .. OTHERS AT HOME: CHILD DAUGHTER. PAIN CLINIC PFS, CLERGY, PUBLIC HEALTH REFERRALS PFS REFERRAL NEEDED?NO CLERGY REFERRAL NEEDED?NO PUBLIC HEALTH REFERRAL NEEDED?NO WAS THE PROVIDER NOTIFIED OF ANY PERTINENT INFO?NO N/A HAS THE PATIENT BEEN EDUCATED REGARDING HIS/HER PLAN OF CARE?YES HAS THE PATIENT BEEN EDUCATED REGARDING PAIN, THE RISK FOR PAIN, THE IMPORTANCE OF EFFECTIVE PAIN MANAGEMENT, AND THE PAIN ASSESSMENT PROCESS?YES ADVANCE DIRECTIVE ADVANCE DIRECTIVE DISCUSSED WITH PATIENT:YES PT HAS HCP [facility] ROBERTS [phone] REVIEWED WITH PT 11/13/17 1410 LASREVIEWED WITH PT 12/12/17 1027 LAS. HOSPITALIZATION/MAJOR DIAGNOSTIC PROCEDURE 3 DAYS FOR TIA 06/2013 SURGERIES REVIEW OF SYSTEMS REVIEWED BY: PROVIDER: . CONSTITUTIONAL: ANY CHANGE IN YOUR MEDICAL CONDITION? NO . CHILLS NO . FEVER NO . INFECTION: DO YOU HAVE NEW INFECTIONS? NO . DO YOU HAVE HISTORY OF MRSA? NO . MUSCULOSKELETAL: ANY NEW PATTERNS OF PAIN OR NUMBNESS? NO . GASTROENTEROLOGY: ANY NEW CHANGE IN BOWEL CONTROL? NO . GENITOURINARY: ANY NEW CHANGE IN BLADDER CONTROL? NO . IS THERE A CHANCE YOU COULD BE ? NO . HEMATOLOGY/LYMPH: DO YOU TAKE ANY BLOOD THINNERS? (FOR EXAMPLE- COUMADIN, PLAVIX, AGGRENOX, PLATEL, PRADAXA, OR XARELTO) YES . WHEN WAS YOUR LAST DOSE? DATE: TIME: 05/24/18@0900 <05/24/18@0900> . NEUROLOGY: HAVE YOU FALLEN IN THE PAST 12 MONTHS? NO . ANY NEW EXTREMITY NUMBNESS OR WEAKNESS? NO . CARDIOLOGY: DO YOU HAVE A PACEMAKER OR DEFIBRILLATOR? NO . RESPIRATORY: HAVE YOU BEEN SICK IN THE PAST WEEK? NO . FEVER NO . FLU LIKE SYMPTOMS? NO . COUGH NO . INTEGUMENTARY: DO YOU HAVE ANY RASHES OR OPEN SORES? NO . ALLERGIC/IMMUNO: ARE YOU ALLERGIC TO IV DYE? NO . ANY NEW ALLERGIES? NO . PSYCHIATRIC: DO YOU HAVE THOUGHTS OF HURTING YOURSELF OR SOMEONE ELSE? NO . ARE YOU ABUSED, NEGLECTED, OR IN AN UNSAFE ENVIRONMENT? NO . ENDOCRINOLOGY: ARE YOU DIABETIC? YES . OTHER: DO YOU NEED ANY PRESCRIPTIONS? NO . IF YES, PLEASE LIST: ____ . ANY NEW PROBLEMS WITH YOUR MEDICATIONS? NO . WHEN DID YOU LAST EAT? ____0700 . WHEN DID YOU LAST DRINK? ____1200 . WHAT DID YOU LAST DRINK? ____WATER . NAME OF PERSON DRIVING YOU HOME? ____VOLUNTEER COP WINDER . DO YOU HAVE ANY OTHER QUESTIONS OR CONCERNS YES, WILL I BE ABLE TO WALK OUT ON MY OWN? . VITAL SIGNS WT 227 LBS, HT 64.25 IN, BMI 38.66 INDEX, BP 138/91 MM HG, HR 89 /MIN, RR 16 /MIN, TEMP 98.6 F, OXYGEN SAT % 96%, SAFE IN ENV? (Y/N) YES, NA INITIALS AW 1404, REVIEWED BY: VD. ASSESSMENTS SACROILIITIS - M46.1 (PRIMARY) TREATMENT SACROILIITIS [facility] FLUORO GUIDANCE (PAIN)[id number] PROCEDURES PN SI PRE PROCEDURE DIAGNOSIS SACROILIITIS, SACROILIAC JOINT DYSFUNCTION POST PROCEDURE DIAGNOSIS SACROILIITIS, SACROILIAC JOINT DYSFUNCTION PROCEDURE BILATERAL SACROILIAC JOINT BLOCK SURGEON DR. PANDA SO SANITATION WORKER HOSING MACHINERY NONE ANESTHESIA LOCAL PRE PROCEDURE NOTE PATIENT WITH HISTORY OF CHRONIC LOW BACK PAIN. I EVALUATED THE PATIENT AND REVIEWED THE CHART. I WENT OVER THE RISKS, ALTERNATIVES, AND BENEFITS ASSOCIATED WITH THIS PROCEDURE. THE PATIENT WOULD LIKE TO PROCEED AND GAVE CONSENT TO PERFORM THE PROCEDURE. THE PATIENT DENIES UNEXPLAINABLE WEIGHT LOSS, FEVER, CHILLS, OR NEW CHANGES IN URINARY OR BOWEL CONTROL DESCRIPTION OF PROCEDURE THE PATIENT WAS BROUGHT TO THE PROCEDURE ROOM AND PLACED IN THE PRONE POSITION. THE LUMBOSACRAL AREA WAS CLEANED WITH CHLORAPREP SOLUTION AND DRAPED ASEPTICALLY. THE PROCEDURE WAS DONE UNDER STERILE CONDITIONS. I CHECKED LATERALITY AND THE LEVEL WHERE THE PROCEDURE WAS GOING TO BE PERFORMED WITH THE PATIENT AND THE SUPPORTING STAFF AT THE MOMENT OF THE TIME OUT IN THE PROCEDURE ROOM. UNDER FLUOROSCOPIC GUIDANCE, TARGET POINT WAS SELECTED AT THE LOWER BORDER OF THE RIGHT AND LEFT SACROILIAC JOINT. TARGET POINT WAS SELECTED AFTER MEDIAL ROTATION AND TILT OF THE MAGNIFIER OF THE C-ARM. LIDOCAINE WAS USED TO NUMB THE SKIN AND SUBCUTANEOUS TISSUE BELOW IT. A SPINAL NEEDLE, 22-GAUGE, WAS ADVANCED UNDER FLUOROSCOPIC GUIDANCE AND FOLLOWING PATIENT FEEDBACK UNTIL THE TARGET AREA WAS TOUCHED. THE POSITION OF THE NEEDLE WAS VERIFIED WITH AP AND LATERAL VIEWS. AFTER PROPER POSITION OF THE NEEDLE WAS ACHIEVED, ISOVUE M DYE 30%, 0.25 ML, WAS INJECTED SHOWING SPREAD OF THE DYE. THEN, A SOLUTION OF 20 MG OF KENALOG WAS INJECTED IN RIGHT AND LEFT JOINT WITH 3 ML OF BUPIVACAINE 0.125%. THERE WAS NO EVIDENCE OF BLOOD, PARESTHESIA OR CEREBROSPINAL FLUID DURING THE PROCEDURE. THE PATIENT WAS SENT TO THE RECOVERY ROOM. THE PATIENT WAS MOVING THE EXTREMITIES AND DOING WELL. THERE WAS NO COMPLICATION DURING THE PROCEDURE. FLUOROSCOPY TIME WAS 28 SECONDS POST PROCEDURE NOTE THE PATIENT WILL BE SEEN IN A FOLLOW UP IN THE NEXT FEW WEEKS. INSTRUCTIONS WERE GIVEN, QUESTIONS WERE ANSWERED, AND THE PATIENT EXPRESSED UNDERSTANDING AND AGREED WITH THE PLAN. I, SONIA CORNEJO, DOCUMENTED THE ABOVE INFORMATION ACTING A SCRIBE FOR DR. SO. I HAVE REVIEWED THE ABOVE DOCUMENT, WRITTEN BY SONIA NANCEIBPeter AND I VERIFY THAT IT IS ACCURATE. PROCEDURE CODES 6045F RADXPS IN END [id number] PXD [id number] INJECT SACROILIAC JOINT, MODIFIERS: 50 DISPOSITION & COMMUNICATION FOLLOW UP 3 WEEKS ELECTRONICALLY SIGNED BY PANDA SO MD, MD ON 06/18/2018 AT 06:32 PM EDT DISCLAIMER : THIS IS A VISIT SUMMARY EXTRACTED FROM THE [employer] CHART. IT IS NOT A COPY OF THE [employer] PROGRESS NOTE. MTDD
== END ==
LOC: M PAIN 14:15
PROVIDERS: ATTEND Anesthesiology
DX: M46.1 Sacroiliitis, not elsewhere classified (principal); E78.5 Hyperlipidemia, unspecified; E11.3292 Type 2 diabetes mellitus with mild nonproliferative diabetic retinopathy without macular edema, left eye; E11.22 Type 2 diabetes mellitus with diabetic chronic kidney disease; N18.3 Chronic kidney disease, stage 3 (moderate); I12.9 Hypertensive chronic kidney disease with stage 1 through stage 4 chronic kidney disease, or unspecified chronic kidney disease; J45.909 Unspecified asthma, uncomplicated; F31.9 Bipolar disorder, unspecified; M48.061 Spinal stenosis, lumbar region without neurogenic claudication; M51.26 Other intervertebral disc displacement, lumbar region; Z87.440 Personal history of urinary (tract) infections; M51.34 Other intervertebral disc degeneration, thoracic region; Z86.73 Personal history of transient ischemic attack (TIA), and cerebral infarction without residual deficits; A60.09 Herpesviral infection of other urogenital tract; Z98.42 Cataract extraction status, left eye; Z87.891 Personal history of nicotine dependence; Z79.4 Long term (current) use of insulin; Z79.82 Long term (current) use of aspirin; Z79.899 Other long term (current) drug therapy; Z88.8 Allergy status to other drugs, medicaments and biological substances
CPT/HCPCS: G0260; G0463; J3301; Q9967

== ENCOUNTER → 2018-06-21 | Outpatient (REF) | payer MEDICARE, MEDICAID ==
[~2018-06-21] MED LIST changes: -/ESCI20TA OR; -/INSULEV SC; +ACET-716 PO; -ACET30TAB PO; -ASPI1TAB PO; +ASPI81TA26 PO; -BUPIVACAINE HCL 0.25% 30 ML VIAL As Ordered ONE; -ISOVUE-M 300 61% 15ML VIAL (Q9967) As Ordered ONE; +LEVE0.01 SC; +LEXA1TAB2 OR; -LIDOCAINE 1% SDV INJ 30 ML VIAL As Ordered ONE; -NORC1TAB4 PO; +NORC1TAB7 PO; -TRIAMCINOLONE ACETONIDE SUSP 40 MG/ML VIAL (J3301) As Ordered ONE; -VANC125C2 PO; +VANC125C3 PO; -VICO5TAB16 PO; +VICO5TAB17 PO; -diazePAM 5 MG TAB As Ordered ONE; -oxyCODONE 5MG TAB As Ordered ONE
[2018-06-21 18:13] LABS: APPEARANCE, URINE CLEAR (CLEAR); BACTERIA, URINE AUTO 3+ (NEGATIVE); BILIRUBIN, URINE AUTO NEGATIVE (NEGATIVE); BLOOD, URINE BLOOD NEGATIVE (NEGATIVE); COLOR, URINE YELLOW (YELLOW); GLUCOSE, URINE (UA) AUTO NEGATIVE (NEGATIVE); KETONE, URINE AUTO NEGATIVE (NEGATIVE); LEUKOCYTE ESTERASE, URINE AUTO 1+ (NEGATIVE); MUCUS, URINE SMALL (NEGATIVE); NITRITE, URINE AUTO NEGATIVE (NEGATIVE); PROTEIN, URINE AUTO NEGATIVE (NEGATIVE); RBC, URINE AUTO 0 /HPF (0-3); SPECIFIC GRAVITY URINE AUTO 1.011 (1.002-1.035); SQUAMOUS EPITHELIAL CELL UR AU 1 /HPF (0-6); UROBILINOGEN, URINE AUTO 0.2 mg/dL (0.0-2.0); WBC, URINE AUTO 38 /HPF (0-3)
== END ==
LOC: M SMT 17:07
PROVIDERS: ATTEND Nurse Practitioner Women's Health
DX: N39.0 Urinary tract infection, site not specified (principal)
CPT/HCPCS: 51798; 81001; 87088; 87186; G0463

== ENCOUNTER → 2018-07-04 | Outpatient (CLI) | payer MEDICARE, MEDICAID ==
--- NOTE | 2018-07-04 15:35 | REPMRS ---
Patient History The patient states she had a clinical breast exam in 02/2018. Patient is postmenopausal and had previous chest radiation therapy. No known family history of cancer. No Hormone Replacement Therapy Digital Woman Screen Mammo: July 04, 2018 - Exam #: [id number] Bilateral CC and MLO view(s) were taken. Technologist: Abby Bravo, Technologist Prior study comparison: July 03, 2017, digital woman screen mammo performed at [facility]. June 30, 2016, digital woman screen mammo performed at [facility]. January 28, 2015, digital woman screen mammo performed at [facility]. FINDINGS: There are scattered fibroglandular densities. There has been no change in the appearance of the mammogram from the prior studies. There is a mild amount of scattered fibroglandular density which is fairly symmetric. There is no interval development of dominant mass, architectural distortion, or clustered microcalcification suggestive of malignancy. 3-D tomosynthesis shows no additional findings. Assessment: BI-RADS/ACR category 1 mammogram. Negative Mammogram. Recommendation Routine screening mammogram of both breasts in 1 year (for women over age 40). This patient's Lifetime Breast Cancer RIsk is estimated at 10.9 %. This mammogram was interpreted with the aid of an FDA-approved computer-aided dectection system. Electronically Signed By: Rico Shane MD 07/04/18 [id number]
== END ==
LOC: M WHC 12:41
PROVIDERS: ATTEND Nurse Practitioner Women's Health
DX: Z12.31 Encounter for screening mammogram for malignant neoplasm of breast (principal); Z78.0 Asymptomatic menopausal state

== ENCOUNTER → 2018-07-11 | Outpatient (CLI) | payer MEDICARE, MEDICAID ==
--- NOTE | 2018-07-13 02:03 | ECWPNPC ---
PATIENT NAME: PRUDENCIO SHAHID : 1965 GENDER: FEMALE VISIT DATE: 07/11/2018 DISCHARGE DATE: 07/11/18 1245 VISIT LOCKED DATE TIME: PHYSICIAN: DENVER REYNOLDS RESOURCE: DENVER REYNOLDS REASON FOR APPOINTMENT 1. POST PROC HISTORY OF PRESENT ILLNESS HISTORY OF PRESENT ILLNESS: PAIN THE PATIENT DESCRIBES THE PAINDURING THE LAST MONTH SEVERITY - PAIN SCORE OF1/10 52 YR OLD POST BILAT SIJ IN MAY.SHE RATES HER PAIN /10. SHE SAYS SHE IS ABLE TO MOVE AROUND MORE.SHE DENIES FEVER, CHILLS AND RADICULOPATHY. FALL RISK SCREENING: SCREENING :NO FALLS REPORTED IN THE LAST YEAR CURRENT MEDICATIONS TAKING HUMALOG 100 UNIT/ML SOLUTION SLIDING SCALE, IF BLOOD SUGAR IS 150 PT TAKES 10 UNITS, IF IT IS HIGHER THAN THAT 12 UNITS SUBCUTANEOUS SLIDING SCALE, MDD 24 UNITS TAKING LEVEMIR FLEXPEN 100 UNIT/ML SOLUTION 18 UNITS SUBCUTANEOUS TWICE A DAY TAKING VICTOZA 18 MG/3ML SOLUTION PEN-INJECTOR 1.8 ML SUBCUTANEOUS ONCE A DAY TAKING AMLODIPINE BESYLATE 2.5 MG TABLET 1 TABLET ORALLY ONCE A DAY TAKING LISINOPRIL 20 MG TABLET 1/2 TABLET ORALLY ONCE A DAY TAKING ACTOS 45MG TABLET 1 TABLET ORALLY ONCE A DAY TAKING DRISDOL 32760 UNIT CAPSULE 1 CAPSULE ORALLY WEEKLY TAKING MAGNESIUM OXIDE 400 MG TABLET 1 TABLET ORALLY ONCE A DAY TAKING ZONISAMIDE 25 MG CAPSULE 1 CAPSULES ORALLY BEFORE BEDTIME TAKING ATENOLOL 50 MG TABLET 1 TABLET ORALLY ONCE A DAY TAKING ASPIR-81 81 MG TABLET DELAYED RELEASE 1 TABLET ORALLY ONCE A DAY TAKING CALCIUM 600 + D 600-400 MG-UNIT TABLET 1 TABLET ORALLY ONCE A DAY TAKING MAY HAVE - - DIRECTED PATIENT WOULD BENEFIT FROM A SUPERVISOR INSPECTION AND TESTING ANIMAL DUE TO PSHCYOLOGICAL AND CARDIAC ISSUES TAKING EFFEXOR XR 75 MG CAPSULE EXTENDED RELEASE 24 HOUR 1 CAPSULE WITH FOOD ORALLY ONCE A DAY TAKING PLAVIX 75 MG TABLET 1 TABLET ORALLY ONCE A DAY TAKING ABILIFY MAINTENA 300 MG PREFILLED SYRINGE INTRAMUSCULAR MONTHLY TAKING PRAVASTATIN SODIUM 40 MG TABLET 1 TABLET ORALLY ONCE A DAY TAKING COLACE 100 MG CAPSULE 1 CAPSULE NEEDED ORALLY ONCE A DAY TAKING GABAPENTIN 100 MG CAPSULE 2 CAPSULES ORALLY BID TAKING RANITIDINE HCL 150MG CAPSULE 1 CAPSULE ORALLY TWICE A DAY TAKING FLUCONAZOLE 150 MG TABLET 1 TABLET ORALLY DAILY TAKING ZOFRAN 4 MG TABLET 1 TABLETS ORALLY TWICE A DAY NEEDED FOR NAUSEA/VOMITING TAKING TYLENOL WITH CODEINE #3 300-30 MG TABLET 1 ORALLY EVERY 6 HRS PRN PAIN MDD3 TAKING LIDOCAINE-PRILOCAINE 2.5-2.5 % CREAM DIRECTED TO LOW BACK EXTERNALLY TID PRN TAKING CETIRIZINE HCL 10MG TABLET TAKE ONE TABLET BY MOUTH ONCE DAILY NEEDED TAKING METHENAMINE HIPPURATE 1 GM TABLET 1 TABLET ORALLY TWICE A DAY TAKING HYDROCHLOROTHIAZIDE 25 MG TABLET 1 TABLET IN THE MORNING ORALLY ONCE A DAY NOT-TAKING BACTRIM DS 800-160 MG TABLET 1 TABLET ORALLY TWICE A DAY MEDICATION LIST REVIEWED AND RECONCILED WITH THE PATIENT PAST MEDICAL HISTORY HYPERLIPIDEMIA DIABETES MELLITUS - WITH NON-PROLIFERATIVE RETINOPATHY LEFT EYE PER CENTER FOR SIGHT 06/2013. 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 DIFFUSE DISC BULGES AT THE L1-2 AND L3-4 LEVELS WITH MINIMAL THECAL SAC. 2. MINIMAL CENTRAL CANAL STENOSIS AT THE L4-5 LEVEL SECONDARY TO DISC BULGE, - CHRONIC PAIN MANAGEMENT THROUGH [facility]) CKD STAGE 3 C. DIFF 10/2017 & 11/2017 & 02/2018 RECURRENT UTIS ALLERGIES SEASONAL: NASAL CONGESTION - ALLERGY PEPTO BISMOL: THROAT SWELLS - ALLERGY METFORMIN HCL: CKD - METFORMIN STOPPED BY NEPHRO. 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 1 SON(S) , 2 DAUGHTER(S) - HEALTHY. ONE BROTHER FROM CARDIAC COMPLICATION\\\\NDAUGHTERS HAVE DEPRESSION. SOCIAL HISTORY GENERAL: TOBACCO USE ARE YOU A:FORMER SMOKER HOW LONG HAS IT BEEN SINCE YOU LAST SMOKED?> 10 YEARS LATEX QUESTIONNAIRE LATEX ALLERGY : HAVE YOU EVER DEVELOPED ANY TYPE OF REACTION AFTER HANDLING LATEX PRODUCTS SUCH RUBBER GLOVES, CONDOMS, DIAPHRAGMS, BALLOONS, SOCKS, OR UNDERWEAR?NO LATEX ALLERGY : HAVE YOU EVER DEVELOPED ANY TYPE OF REACTION DURING OR AFTER DENTAL APPOINTMENT, VAGINAL/RECTAL EXAMINATION, SURGICAL PROCEDURE, OR ANY OTHER EXPOSURE?NO LATEX RISK : HAVE YOU EVER HAD ANY DIFFICULTY BREATHING OR HIVES AFTER EATING OR HANDLING ANY FRUITS, OR VEGETABLES; SUCH KIWI, BANANAS, STONE FRUITS, OR CHESTNUTSNO LATEX RISK : DO YOU HAVE A PREVIOUS PERSONAL HISTORY OF MORE THAN NINE SURGERIES, SPINA BIFIDA, OR REPEATED CATHERTIZATIONS? NO LATEX RISK : ARE YOU FREQUENTLY EXPOSED TO LATEX PRODUCTS IN YOUR OCCUPATION?NO DATE ASKED : 07/11/2018 BMI CARE GOAL FOLLOW-UP ABOVE NORMAL BMI FOLLOW-UPDIETARY MANAGEMENT EDUCATION, GUIDANCE, AND COUNSELING ALCOHOL SCREENING DID YOU HAVE A DRINK CONTAINING ALCOHOL IN THE PAST YEAR?NO POINTS0 INTERPRETATIONNEGATIVE RECREATIONAL DRUG USE DRUG USE?NO CAFFEINE CAFFEINE USE?YES 1CUP COFFEE SEXUAL HX HAD SEX IN THE LAST 12 MONTHS (VAGINAL, ORAL, OR ANAL)?NO LMP:02/2016 HAVE YOU EVER HAD AN STD?NO HIV / HEP-C SCREENING HIV TEST OFFERED TO PATIENT:YES DATE OFFERED:06/30/2016 TEST ACCEPTED:NO REASON:PATIENT DECLINED BROCHURE PROVIDED TO PATIENTNO CHRISTIAN [id number] SABIANISM LANGUAGE LANGUAGES SPOKEN:ESTONIAN LEARNING BARRIERS / SPECIAL NEEDS CHANGE FROM LAST VISIT?NO BARRIERS TO LEARNING?NO HEARING IMPAIRED?NO VISION IMPAIRED?YES :CORRECTIVE LENSES COGNITIVELY IMPAIRED?NO READINESS TO LEARN?YES LEARNING PREFERENCES?NO LEARNING CAPABILITIES PRESENT?YES EMOTIONAL BARRIERS?NO SPECIAL DEVICES?NO DYE WEIGHER HELPER NEEDED?NO DOMESTIC VIOLENCE DO YOU FEEL SAFE IN YOUR ENVIRONMENT?YES DIET: NO CONCENTRATED SWEETS., CARBOHYDRATE CONTROLLED, LOW FAT, LOW CHOLESTEROL. EXERCISE: WALKS 1 MILE WEATHER PERMITTING. MARITAL STATUS: .. OTHERS AT HOME: CHILD DAUGHTER. PAIN CLINIC PFS, CLERGY, PUBLIC HEALTH REFERRALS PFS REFERRAL NEEDED?NO CLERGY REFERRAL NEEDED?NO PUBLIC HEALTH REFERRAL NEEDED?NO WAS THE PROVIDER NOTIFIED OF ANY PERTINENT INFO? N/A HAS THE PATIENT BEEN EDUCATED REGARDING HIS/HER PLAN OF CARE?YES HAS THE PATIENT BEEN EDUCATED REGARDING PAIN, THE RISK FOR PAIN, THE IMPORTANCE OF EFFECTIVE PAIN MANAGEMENT, AND THE PAIN ASSESSMENT PROCESS?YES ADVANCE DIRECTIVE ADVANCE DIRECTIVE DISCUSSED WITH PATIENT:YES PT HAS HCP USMAN ROBERTS [phone] REVIEWED WITH PT 11/13/17 1410 LASREVIEWED WITH PT 12/12/17 1027 LAS07/11/18 REVIEWED WITH PT. AD. HOSPITALIZATION/MAJOR DIAGNOSTIC PROCEDURE 3 DAYS FOR TIA 06/2013 SURGERIES REVIEW OF SYSTEMS REVIEWED BY: PROVIDER: ADAN . CONSTITUTIONAL: ANY CHANGE IN YOUR MEDICAL CONDITION? NO . CHILLS NO . FEVER NO . INFECTION: DO YOU HAVE NEW INFECTIONS? NO . DO YOU HAVE HISTORY OF MRSA? NO . MUSCULOSKELETAL: ANY NEW PATTERNS OF PAIN OR NUMBNESS? NO . GASTROENTEROLOGY: ANY NEW CHANGE IN BOWEL CONTROL? NO . GENITOURINARY: ANY NEW CHANGE IN BLADDER CONTROL? NO . IS THERE A CHANCE YOU COULD BE ? NO . HEMATOLOGY/LYMPH: DO YOU TAKE ANY BLOOD THINNERS? (FOR EXAMPLE- COUMADIN, PLAVIX, AGGRENOX, PLATEL, PRADAXA, OR XARELTO) YES, PLAVIX . WHEN WAS YOUR LAST DOSE? DATE: TIME: 07/11/18 0900 . NEUROLOGY: HAVE YOU FALLEN IN THE PAST 12 MONTHS? YES, ONCE BRUISED LEFT 5TH TOE AND BRUISED HER BACK, NOT EVALUATED AFTER . ANY NEW EXTREMITY NUMBNESS OR WEAKNESS? NO . CARDIOLOGY: DO YOU HAVE A PACEMAKER OR DEFIBRILLATOR? NO . RESPIRATORY: HAVE YOU BEEN SICK IN THE PAST WEEK? NO . FEVER NO . FLU LIKE SYMPTOMS? NO . COUGH NO . INTEGUMENTARY: DO YOU HAVE ANY RASHES OR OPEN SORES? NO . ALLERGIC/IMMUNO: ARE YOU ALLERGIC TO IV DYE? NO . ANY NEW ALLERGIES? NO . PSYCHIATRIC: DO YOU HAVE THOUGHTS OF HURTING YOURSELF OR SOMEONE ELSE? NO . ARE YOU ABUSED, NEGLECTED, OR IN AN UNSAFE ENVIRONMENT? NO . ENDOCRINOLOGY: ARE YOU DIABETIC? NO . OTHER: DO YOU NEED ANY PRESCRIPTIONS? YES . IF YES, PLEASE LIST: COLACE . ANY NEW PROBLEMS WITH YOUR MEDICATIONS? NO . WHEN DID YOU LAST EAT? ____ . WHEN DID YOU LAST DRINK? ____ . WHAT DID YOU LAST DRINK? ____ . NAME OF PERSON DRIVING YOU HOME? ____ . DO YOU HAVE ANY OTHER QUESTIONS OR CONCERNS NO . VITAL SIGNS WT 223 LBS, HT 64.25 IN, BMI 37.98 INDEX, BP 181/97 MM HG, REPEAT BP 170/110MANUAL, HR 73 /MIN, RR 18 /MIN, TEMP 97.7 F, OXYGEN SAT % 98%, NA INITIALS SC 12:29RN IS AWARE OF PT'S BP, Leonor REYNOLDS NPC NOTIFIED OF ELEVATED B/P. EXAMINATION GENERAL EXAMINATION: GENERAL APPEARANCE:NO ACUTE DISTRESS, WELL NOURISHED AND HYDRATED. PSYCHAPPROPRIATE MOOD AND AFFECT . LUNGS:CLEAR TO AUSCULTATION BILATERALLY, NO WHEEZES, RHONCHI, RALES. HEART:NO MURMURS, REGULAR RATE AND RHYTHM. BACK: FROM TENDER ALONG RIGHT SIJ AREA SLR NEG BILATERAL REFLEXES 2+. 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 (REF # [id number] ) URINE TOX TODAY AND, [facility] NARCOTIC AGREEMENT WAS REVIEWED AND SIGNED TODAY BY THE PATIENT. SEE ATTACHED DOCUMENT FOR FULL DETAILS; SPECIFIC ISSUES WERE REVIEWED: 1) KEEP PAIN MEDS IN THEIR ORIGINAL BOTTLES AND ANY WEEKLY PLANNERS ARE TO BE BROUGHT TO THE PAIN CENTER AT EVERY VISIT. 2) THE PATIENT IS NOT TO INCREASE DOSING OR TIMING OF THEIR PAIN MEDICATION WITHOUT SPECIFIC DIRECTION OF THEIR PAIN CENTERPROVIDER (NOT ER OR OTHER PROVIDERS). 3) ALL PAIN MEDS ARE TO BE KEPT SECURED, IN A LOCKED BOX. 4) NO PAIN MEDS ARE TO BE SHARED WITH ANY OTHER PERSON FOR ANY REASON. 5) NO PAIN MEDS MAY BE TAKEN FROM ANY FRIENDS OR RELATIVES FOR ANY REASON 6) NO MEDS OR SUBSTANCES WHICH ARE NOT LEGAL ARE TO BE USED- NO MARIJUANA, NO COCAINE, AMPHETAMINES, HEROIN, OR OTHERS ARE EVER TO BE USED. 7)URINE TESTING IS DONE TO ACCOUNT FOR MEDS AND SUBSTANCES BEING TAKEN AND WILL BE DONE RANDOMLY. ESSENTIAL HYPERTENSION CLINICAL NOTES: ADVISED TO CALL PCP TODAY MARAL TO REVIEW BLOOD PRESSURE AND DISCUSS MEDICATION. PROCEDURE CODES FA211 ESTABILISHED PATIENT [facility] CHARGE DISPOSITION & COMMUNICATION FOLLOW UP 3 MONTHS ELECTRONICALLY SIGNED BY GAY ARCHIBALD ON 07/12/2018 AT 09:22 AM EDT DISCLAIMER : THIS IS A VISIT SUMMARY EXTRACTED FROM THE [employer] CHART. IT IS NOT A COPY OF THE [employer] PROGRESS NOTE. MARYLOU
== END ==
LOC: M PAIN 11:00
PROVIDERS: ATTEND Nurse Practitioner Family
DX: M53.3 Sacrococcygeal disorders, not elsewhere classified (principal); M54.42 Lumbago with sciatica, left side; I12.9 Hypertensive chronic kidney disease with stage 1 through stage 4 chronic kidney disease, or unspecified chronic kidney disease; E78.5 Hyperlipidemia, unspecified; E11.9 Type 2 diabetes mellitus without complications; Z86.59 Personal history of other mental and behavioral disorders; J45.909 Unspecified asthma, uncomplicated; M19.90 Unspecified osteoarthritis, unspecified site; N18.3 Chronic kidney disease, stage 3 (moderate); Z86.19 Personal history of other infectious and parasitic diseases; Z87.891 Personal history of nicotine dependence; Z88.8 Allergy status to other drugs, medicaments and biological substances; Z79.01 Long term (current) use of anticoagulants; Z79.4 Long term (current) use of insulin; Z79.82 Long term (current) use of aspirin; Z79.891 Long term (current) use of opiate analgesic; Z79.899 Other long term (current) drug therapy

== ENCOUNTER 2018-07-19 15:10 | Emergency (ER) | payer MEDICARE, MEDICAID ==
[~2018-07-19] VITALS: Ht 152.4 cm; Wt 104.9 kg
[2018-07-19] MEDS ORDERED: HYDR25TAB (15:35)
[2018-07-19] MEDS ORDERED: LISI40TA (15:35)
[2018-07-19] MEDS ORDERED: ABIL1INJ2 (15:35)
[2018-07-19] MEDS ORDERED: VICT18IN2 (15:35)
[2018-07-19] MEDS ORDERED: ASPIRIN 81 MG CHEW TABLET PO ONE (16:45)
--- NOTE | 2018-07-19 17:02 | REP ---
Chest one-view HISTORY: Chest pain Comparison: 07/02/2016 The lungs are clear. The heart is normal in size. The pulmonary vasculature is normal in appearance. Impression: No acute disease. Electronically Signed by Jesus Londono MD 07/19/2018 04:54 P
[2018-07-19 17:14] LABS: ALBUMIN 3.5 GM/DL (3.2-5.2); ALT/SGPT 29 U/L (12-78); BILIRUBIN,DIRECT < 0.1 MG/DL (0.0-0.2); BILIRUBIN,TOTAL 0.2 MG/DL (0.2-1.0); BLOOD UREA NITROGEN 20 MG/DL (7-18); CALCIUM LEVEL 8.8 MG/DL (8.5-10.1); CARBON DIOXIDE LEVEL 29 MEQ/L (21-32); CHLORIDE LEVEL 111 MEQ/L (98-107); CPK CREATINE PHOSPHOKINASE 50 U/L (26-192); CREATININE FOR GFR 1.21 MG/DL (0.55-1.30); GLOMERULAR FILTRATION RATE 49.6 (>51); GLUCOSE, FASTING 65 MG/DL (70-100); LIPASE 337 U/L (73-393); POTASSIUM SERUM 3.7 MEQ/L (3.5-5.1); SODIUM LEVEL 144 MEQ/L (136-145); TOTAL PROTEIN 6.7 GM/DL (6.4-8.2); TROPONIN I < 0.02 NG/ML (< 0.10)
[2018-07-19 17:19] LABS: BASO % 0.5 % (0.0-1.0); EOS # 0.1 10^3/uL (0.0-0.50); EOS % 1.1 % (0.0-3.0); HEMATOCRIT 38.5 % (36.0-47.0); HEMOGLOBIN 12.1 g/dl (12.0-15.5); LYMPH # 1.5 10^3/uL (1.5-4.5); LYMPH % 18.5 % (24.0-44.0); MEAN CORPUSCULAR HEMOGLOBIN 27.5 pg (27.0-33.0); MEAN CORPUSCULAR HGB CONC 31.4 g/dl (32.0-36.5); MEAN CORPUSCULAR VOLUME 87.5 fl (80.0-96.0); MONO # 0.5 10^3/uL (0.0-0.8); MONO % 6.4 % (0.0-5.0); NEUTROPHILS % 72.9 % (36.0-66.0); PLATELET COUNT, AUTOMATED 248 10^3/uL (150-450); WHITE BLOOD COUNT 8.2 10^3/uL (4.0-10.0)
[2018-07-19 18:00] VITALS: BP 143/87
--- NOTE | 2018-07-20 19:27 | ECGEPIP ---
Stationary ECG Study [facility] - ED Test Date: 2018-07-19 Pat Name: PRUDENCIO SHAHID Department: Room: - Gender: F [employer] Worker: ALEXX : 1965 Requested By: BENSON Roman Order Number: [id number] Reading MD: Candy Bearden Measurements Intervals [place] Rate: 95 P: 65 MT: 222 QRS: -72 QRSD: 146 T: 69 QT: 401 QTc: 505 Interpretive Statements SINUS RHYTHM WITH FIRST DEGREE AV BLOCK RIGHT BUNDLE BRANCH BLOCK LEFT ANTERIOR FASCICULAR BLOCK LEFT VENTRICULAR HYPERTROPHY AND ST-T CHANGE SIMILAR 04/11/18 Electronically Signed On 07-20-2018 19:26:50 EDT by Candy Bearden
== END 2018-07-19 18:19 | disposition home or self-care (01) ==
LOC: M ED 15:10
DX: R07.89 Other chest pain (principal); R06.02 Shortness of breath; I11.9 Hypertensive heart disease without heart failure; E78.5 Hyperlipidemia, unspecified; E11.9 Type 2 diabetes mellitus without complications; Z87.891 Personal history of nicotine dependence; Z88.8 Allergy status to other drugs, medicaments and biological substances; Z79.899 Other long term (current) drug therapy; Z79.4 Long term (current) use of insulin; Z79.02 Long term (current) use of antithrombotics/antiplatelets

== ENCOUNTER 2018-07-30 13:53 | Emergency (ER) | payer MEDICARE, MEDICAID ==
[~2018-07-30] VITALS: Ht 152.4 cm; Wt 106.4 kg
[~2018-07-30 13:53] MED LIST changes: +HYDR25TAB; +VICT18IN2
[2018-07-30] MEDS ORDERED: ZONI25CA2 PO (14:42)
[2018-07-30] MEDS ORDERED: ATEN50TA2 (14:45)
[2018-07-30] MEDS ORDERED: PRAV40TA2 PO (14:45)
[2018-07-30] MEDS ORDERED: FENO48TA2 (14:55)
[2018-07-30] MEDS ORDERED: METH-855 (14:55)
[2018-07-30] MEDS ORDERED: NS 1,000 ML IV ONE (15:00)
[2018-07-30] MEDS ORDERED: oxyCODONE 5MG TAB PO ONE (15:00)
[2018-07-30 15:32] LABS: BASO % 0.2 % (0.0-1.0); EOS # 0.1 10^3/uL (0.0-0.50); EOS % 0.8 % (0.0-3.0); HEMATOCRIT 39.2 % (36.0-47.0); HEMOGLOBIN 12.6 g/dl (12.0-15.5); LYMPH # 0.8 10^3/uL (1.5-4.5); LYMPH % 6.5 % (24.0-44.0); MEAN CORPUSCULAR HEMOGLOBIN 28.1 pg (27.0-33.0); MEAN CORPUSCULAR HGB CONC 32.1 g/dl (32.0-36.5); MEAN CORPUSCULAR VOLUME 87.5 fl (80.0-96.0); MONO # 0.8 10^3/uL (0.0-0.8); MONO % 6.3 % (0.0-5.0); NEUTROPHILS # 10.7 10^3/uL (1.8-7.7); NEUTROPHILS % 85.6 % (36.0-66.0); PLATELET COUNT, AUTOMATED 240 10^3/uL (150-450); RED BLOOD COUNT 4.48 10^6/uL (4.00-5.40); WHITE BLOOD COUNT 12.5 10^3/uL (4.0-10.0)
[2018-07-30 16:08] LABS: CALCIUM LEVEL 9.4 MG/DL (8.5-10.1); CREATININE FOR GFR 1.47 MG/DL (0.55-1.30); GLOMERULAR FILTRATION RATE 39.6 (>51)
[2018-07-30] MEDS ORDERED: ACETAMINOPHEN 325 MG TAB PO ONE (16:45)
[2018-07-30] MEDS ORDERED: AMLO25TA PO ×2 (16:54→17:54)
[2018-07-30] MEDS ORDERED: SULF1TAB93 PO (16:54)
[2018-07-30] MEDS ORDERED: BACTRIM 160MG/800MG DS TAB PO ONE (17:00)
[2018-07-30 18:18] VITALS: BP 143/68
[2018-07-30] MEDS ORDERED: IBUPROFEN 600 MG TAB PO ONE (18:45)
== END 2018-07-30 18:52 | disposition home or self-care (01) ==
LOC: M ED 13:53
DX: N39.0 Urinary tract infection, site not specified (principal); R50.9 Fever, unspecified; Z87.440 Personal history of urinary (tract) infections; Z98.890 Other specified postprocedural states; E11.319 Type 2 diabetes mellitus with unspecified diabetic retinopathy without macular edema; I12.9 Hypertensive chronic kidney disease with stage 1 through stage 4 chronic kidney disease, or unspecified chronic kidney disease; E78.5 Hyperlipidemia, unspecified; N18.3 Chronic kidney disease, stage 3 (moderate); Z86.73 Personal history of transient ischemic attack (TIA), and cerebral infarction without residual deficits; G43.909 Migraine, unspecified, not intractable, without status migrainosus; J45.909 Unspecified asthma, uncomplicated; Z79.899 Other long term (current) drug therapy; Z79.4 Long term (current) use of insulin; Z79.02 Long term (current) use of antithrombotics/antiplatelets; Z79.82 Long term (current) use of aspirin

== ENCOUNTER → 2018-08-02 | Outpatient (REF) | payer MEDICARE, MEDICAID ==
[~2018-08-02] MED LIST changes: +AMLO25TA PO; +ATEN50TA2; +METH-855; +PRAV40TA2 PO; +SULF1TAB93 PO; +ZONI25CA2 PO
[2018-08-02 20:02] LABS: ALBUMIN 3.4 GM/DL (3.2-5.2); BILIRUBIN,TOTAL 0.2 MG/DL (0.2-1.0); CALCIUM LEVEL 9.6 MG/DL (8.5-10.1); CREATININE FOR GFR 1.58 MG/DL (0.55-1.30); GLOMERULAR FILTRATION RATE 36.4 (>51); POTASSIUM SERUM 4.1 MEQ/L (3.5-5.1); TOTAL PROTEIN 7.1 GM/DL (6.4-8.2)
[2018-08-02 20:03] LABS: BASO % 0.4 % (0.0-1.0); EOS % 0.8 % (0.0-3.0); HEMATOCRIT 37.6 % (36.0-47.0); LYMPH # 1.2 10^3/uL (1.5-4.5); LYMPH % 23.3 % (24.0-44.0); MEAN CORPUSCULAR HEMOGLOBIN 27.8 pg (27.0-33.0); MEAN CORPUSCULAR HGB CONC 31.9 g/dl (32.0-36.5); MEAN CORPUSCULAR VOLUME 87.2 fl (80.0-96.0); MONO # 0.5 10^3/uL (0.0-0.8); MONO % 10.1 % (0.0-5.0); NEUTROPHILS # 3.3 10^3/uL (1.8-7.7); NEUTROPHILS % 64.8 % (36.0-66.0); PLATELET COUNT, AUTOMATED 214 10^3/uL (150-450); RED BLOOD COUNT 4.31 10^6/uL (4.00-5.40)
== END ==
LOC: M SFHCADAM 14:00
PROVIDERS: ATTEND Physician Assistant
DX: N12 Tubulo-interstitial nephritis, not specified as acute or chronic (principal); R78.81 Bacteremia; N18.3 Chronic kidney disease, stage 3 (moderate)
CPT/HCPCS: 80053; 85025; G0463

== ENCOUNTER → 2018-08-09 | Outpatient (REF) | payer MEDICARE, MEDICAID ==
[2018-08-09 13:34] LABS: CALCIUM LEVEL 9.2 MG/DL (8.5-10.1); CREATININE FOR GFR 1.27 MG/DL (0.55-1.30); GLOMERULAR FILTRATION RATE 46.9 (>51); POTASSIUM SERUM 4.1 MEQ/L (3.5-5.1)
== END ==
LOC: M SFHCADAM 08:29
PROVIDERS: ATTEND Physician Assistant
DX: N12 Tubulo-interstitial nephritis, not specified as acute or chronic (principal)

== ENCOUNTER → 2018-09-18 | Outpatient (CLI) | payer MEDICARE, MEDICAID ==
--- NOTE | 2018-09-18 14:04 | REP ---
Clinical: Left knee pain. Technique: AP, lateral, bilateral oblique and sunrise views of the left knee. Findings: Early advanced tricompartmental osteoarthritic degenerative changes includes subchondral sclerosis, joint space narrowing, and osteophytosis. No obvious effusion. No acute fracture or dislocation. Impression: Early advanced tricompartmental osteoarthritic degenerative changes. Electronically Signed by Shukri Burris MD 09/18/2018 01:55 P
== END ==
LOC: M ADAMS 13:27
PROVIDERS: ATTEND Physician Assistant Medical
DX: M17.12 Unilateral primary osteoarthritis, left knee (principal); M25.562 Pain in left knee
CPT/HCPCS: 73564; G0463

== ENCOUNTER → 2018-10-08 | Outpatient (REF) | payer MEDICARE, MEDICAID ==
[~2018-10-08] MED LIST changes: -ATEN50TA2; -HYDR25TAB; +HYDR25TAB PO; +LISI40TA PO; +MELA5CAP2 PO; -METH-855; +METH-855 PO; +ROBA500T PO; +TYLETAB15 PO
== END ==
LOC: M LAB REF 13:02
PROVIDERS: ATTEND Internal Medicine Nephrology
DX: N18.3 Chronic kidney disease, stage 3 (moderate) (principal); E11.22 Type 2 diabetes mellitus with diabetic chronic kidney disease; N39.0 Urinary tract infection, site not specified

== ENCOUNTER → 2018-10-10 | Outpatient (CLI) | payer MEDICARE, MEDICAID ==
--- NOTE | 2018-10-25 01:46 | ECWPNPC ---
PATIENT NAME: PRUDENCIO SHAHID : 1965 GENDER: FEMALE VISIT DATE: 10/10/2018 DISCHARGE DATE: 10/10/18 1105 VISIT LOCKED DATE TIME: PHYSICIAN: YULISSA STAUFFER RESOURCE: YULISSA STAUFFER REASON FOR APPOINTMENT 1. LOW BACK HISTORY OF PRESENT ILLNESS HISTORY OF PRESENT ILLNESS: HERE FOR ROUTINE F/U OF CHRONIC RIGHT >LEFT LOW BACK PAIN.PAIN HAS GRADUALLY ESCALATED OVER THE PAST 2 MONTHS.HAS RESPONDED WELL TO BILAT. SIJ IN PAST.RATING PAIN VAS 8/10. PAIN THE PATIENT DESCRIBES THE PAIN... FALL RISK SCREENING: SCREENING :NO FALLS REPORTED IN THE LAST YEAR CURRENT MEDICATIONS TAKING HUMALOG 100 UNIT/ML SOLUTION SLIDING SCALE, IF BLOOD SUGAR IS 150 PT TAKES 10 UNITS, IF IT IS HIGHER THAN THAT 12 UNITS SUBCUTANEOUS SLIDING SCALE, MDD 24 UNITS TAKING LEVEMIR FLEXPEN 100 UNIT/ML SOLUTION 18 UNITS SUBCUTANEOUS TWICE A DAY TAKING VICTOZA 18 MG/3ML SOLUTION PEN-INJECTOR 1.8 ML SUBCUTANEOUS ONCE A DAY TAKING AMLODIPINE BESYLATE 2.5 MG TABLET 1 TABLET ORALLY ONCE A DAY TAKING LISINOPRIL 20 MG TABLET 1/2 TABLET ORALLY ONCE A DAY TAKING ACTOS 45MG TABLET 1 TABLET ORALLY ONCE A DAY TAKING DRISDOL 52336 UNIT CAPSULE 1 CAPSULE ORALLY WEEKLY TAKING MAGNESIUM OXIDE 400 MG TABLET 1 TABLET ORALLY ONCE A DAY TAKING ZONISAMIDE 25 MG CAPSULE 1 CAPSULES ORALLY BEFORE BEDTIME TAKING ATENOLOL 50 MG TABLET 1 TABLET ORALLY ONCE A DAY TAKING ASPIR-81 81 MG TABLET DELAYED RELEASE 1 TABLET ORALLY ONCE A DAY TAKING CALCIUM 600 + D 600-400 MG-UNIT TABLET 1 TABLET ORALLY ONCE A DAY TAKING MAY HAVE - - DIRECTED PATIENT WOULD BENEFIT FROM A CARE TRANSITION COORDINATOR ANIMAL DUE TO PSHCYOLOGICAL AND CARDIAC ISSUES TAKING EFFEXOR XR 75 MG CAPSULE EXTENDED RELEASE 24 HOUR 1 CAPSULE WITH FOOD ORALLY ONCE A DAY TAKING PLAVIX 75 MG TABLET 1 TABLET ORALLY ONCE A DAY TAKING ABILIFY MAINTENA 300 MG PREFILLED SYRINGE INTRAMUSCULAR MONTHLY TAKING PRAVASTATIN SODIUM 40 MG TABLET 1 TABLET ORALLY ONCE A DAY TAKING RANITIDINE HCL 150MG CAPSULE 1 CAPSULE ORALLY TWICE A DAY TAKING FLUCONAZOLE 150 MG TABLET 1 TABLET ORALLY DAILY TAKING ZOFRAN 4 MG TABLET 1 TABLETS ORALLY TWICE A DAY NEEDED FOR NAUSEA/VOMITING TAKING LIDOCAINE-PRILOCAINE 2.5-2.5 % CREAM DIRECTED TO LOW BACK EXTERNALLY TID PRN TAKING CETIRIZINE HCL 10MG TABLET TAKE ONE TABLET BY MOUTH ONCE DAILY NEEDED TAKING METHENAMINE HIPPURATE 1 GM TABLET 1 TABLET ORALLY TWICE A DAY TAKING HYDROCHLOROTHIAZIDE 25 MG TABLET 1 TABLET IN THE MORNING ORALLY ONCE A DAY TAKING COLACE 100 MG CAPSULE 1 CAPSULE NEEDED ORALLY ONCE A DAY TAKING GABAPENTIN 100 MG CAPSULE 2 CAPSULES ORALLY BID TAKING FENOFIBRATE 48 MG TABLET 1 TABLET ORALLY ONCE A DAY TAKING TYLENOL WITH CODEINE #3 300-30 MG TABLET 1 ORALLY EVERY 6 HRS PRN PAIN MDD3 DISCONTINUED CIPRO 500 MG TABLET 1 TABLET ORALLY EVERY 12 HRS DISCONTINUED FLUTICASONE PROPIONATE 50 MCG/ACT SUSPENSION 1 SPRAY IN EACH NOSTRIL NASALLY TWICE A DAY MEDICATION LIST REVIEWED AND RECONCILED WITH THE PATIENT PAST MEDICAL HISTORY HYPERLIPIDEMIA DIABETES MELLITUS - WITH NON-PROLIFERATIVE RETINOPATHY LEFT EYE PER CENTER FOR SIGHT 06/2013. 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 DIFFUSE DISC BULGES AT THE L1-2 AND L3-4 LEVELS WITH MINIMAL THECAL SAC. 2. MINIMAL CENTRAL CANAL STENOSIS AT THE L4-5 LEVEL SECONDARY TO DISC BULGE, - CHRONIC PAIN MANAGEMENT THROUGH [facility]) CKD STAGE 3 C. DIFF 10/2017 & 11/2017 & 02/2018 - S/P STOOL TRANSPLANT RECURRENT UTIS ALLERGIES SEASONAL: NASAL CONGESTION - ALLERGY PEPTO BISMOL: THROAT SWELLS - ALLERGY METFORMIN HCL: CKD - METFORMIN STOPPED BY NEPHRO. 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 1 SON(S) , 2 DAUGHTER(S) - HEALTHY. ONE BROTHER FROM CARDIAC COMPLICATION\\\\\\\\NDAUGHTERS HAVE DEPRESSION. SOCIAL HISTORY GENERAL: TOBACCO USE ARE YOU A:FORMER SMOKER HOW LONG HAS IT BEEN SINCE YOU LAST SMOKED?> 10 YEARS HIV / HEP-C SCREENING HIV TEST OFFERED TO PATIENT:YES DATE OFFERED:06/30/2016 TEST ACCEPTED:NO REASON:PATIENT DECLINED BROCHURE PROVIDED TO PATIENTNO OTHERS AT HOME: CHILD DAUGHTER. DIET: NO CONCENTRATED SWEETS., CARBOHYDRATE CONTROLLED, LOW FAT, LOW CHOLESTEROL. LANGUAGE LANGUAGES SPOKEN:WALLISIAN DOMESTIC VIOLENCE DO YOU FEEL SAFE IN YOUR ENVIRONMENT?YES BMI CARE GOAL FOLLOW-UP ABOVE NORMAL BMI FOLLOW-UPDIETARY MANAGEMENT EDUCATION, GUIDANCE, AND COUNSELING RECREATIONAL DRUG USE DRUG USE?NO EXERCISE: WALKS 1 MILE WEATHER PERMITTING. LEARNING BARRIERS / SPECIAL NEEDS CHANGE FROM LAST VISIT?NO BARRIERS TO LEARNING?NO HEARING IMPAIRED?NO VISION IMPAIRED?YES :CORRECTIVE LENSES COGNITIVELY IMPAIRED?NO READINESS TO LEARN?YES LEARNING PREFERENCES?NO LEARNING CAPABILITIES PRESENT?YES EMOTIONAL BARRIERS?NO SPECIAL DEVICES?NO SALES SUPPORT ADMINISTRATOR NEEDED?NO LUNG CANCER SCREENING SMOKING STATUS:FORMER SMOKER PAIN CLINIC PFS, CLERGY, PUBLIC HEALTH REFERRALS PFS REFERRAL NEEDED?NO CLERGY REFERRAL NEEDED?NO PUBLIC HEALTH REFERRAL NEEDED?NO WAS THE PROVIDER NOTIFIED OF ANY PERTINENT INFO? N/A HAS THE PATIENT BEEN EDUCATED REGARDING HIS/HER PLAN OF CARE?YES HAS THE PATIENT BEEN EDUCATED REGARDING PAIN, THE RISK FOR PAIN, THE IMPORTANCE OF EFFECTIVE PAIN MANAGEMENT, AND THE PAIN ASSESSMENT PROCESS?YES LATEX QUESTIONNAIRE LATEX ALLERGY : HAVE YOU EVER DEVELOPED ANY TYPE OF REACTION AFTER HANDLING LATEX PRODUCTS SUCH RUBBER GLOVES, CONDOMS, DIAPHRAGMS, BALLOONS, SOCKS, OR UNDERWEAR?NO LATEX ALLERGY : HAVE YOU EVER DEVELOPED ANY TYPE OF REACTION DURING OR AFTER DENTAL APPOINTMENT, VAGINAL/RECTAL EXAMINATION, SURGICAL PROCEDURE, OR ANY OTHER EXPOSURE?NO LATEX RISK : HAVE YOU EVER HAD ANY DIFFICULTY BREATHING OR HIVES AFTER EATING OR HANDLING ANY FRUITS, OR VEGETABLES; SUCH KIWI, BANANAS, STONE FRUITS, OR CHESTNUTSNO LATEX RISK : DO YOU HAVE A PREVIOUS PERSONAL HISTORY OF MORE THAN NINE SURGERIES, SPINA BIFIDA, OR REPEATED CATHERIZATIONS? NO LATEX RISK : ARE YOU FREQUENTLY EXPOSED TO LATEX PRODUCTS IN YOUR OCCUPATION?NO DATE ASKED : 07/11/2018 CAFFEINE CAFFEINE USE?YES 1CUP COFFEE ADVANCE DIRECTIVE ADVANCE DIRECTIVE DISCUSSED WITH PATIENT:YES PT HAS HCP USMAN ROBERTS [phone] BAHAI [id number] RESTORATIONIST MARITAL STATUS: .. ALCOHOL SCREENING DID YOU HAVE A DRINK CONTAINING ALCOHOL IN THE PAST YEAR?NO POINTS0 INTERPRETATIONNEGATIVE SEXUAL HX HAD SEX IN THE LAST 12 MONTHS (VAGINAL, ORAL, OR ANAL)?NO HAVE YOU EVER HAD AN STD?NO LMP:02/2016 REVIEWED WITH PT 11/13/17 1410 LASREVIEWED WITH PT 12/12/17 1027 LAS07/11/18 REVIEWED WITH PT. AD. HOSPITALIZATION/MAJOR DIAGNOSTIC PROCEDURE 3 DAYS FOR TIA 06/2013 SURGERIES REVIEW OF SYSTEMS REVIEWED BY: PROVIDER: YULISSA RASHID . CONSTITUTIONAL: ANY CHANGE IN YOUR MEDICAL CONDITION? NO . CHILLS NO . FEVER NO . INFECTION: DO YOU HAVE NEW INFECTIONS? NO . DO YOU HAVE HISTORY OF MRSA? NO . MUSCULOSKELETAL: ANY NEW PATTERNS OF PAIN OR NUMBNESS? NO . GASTROENTEROLOGY: ANY NEW CHANGE IN BOWEL CONTROL? NO . GENITOURINARY: ANY NEW CHANGE IN BLADDER CONTROL? NO . IS THERE A CHANCE YOU COULD BE ? NO . HEMATOLOGY/LYMPH: DO YOU TAKE ANY BLOOD THINNERS? (FOR EXAMPLE- COUMADIN, PLAVIX, AGGRENOX, PLATEL, PRADAXA, OR XARELTO) YES, PLAVIX . WHEN WAS YOUR LAST DOSE? DATE: TIME: . NEUROLOGY: HAVE YOU FALLEN IN THE PAST 12 MONTHS? NO . ANY NEW EXTREMITY NUMBNESS OR WEAKNESS? NO . CARDIOLOGY: DO YOU HAVE A PACEMAKER OR DEFIBRILLATOR? NO . RESPIRATORY: HAVE YOU BEEN SICK IN THE PAST WEEK? NO . FEVER NO . FLU LIKE SYMPTOMS? NO . COUGH NO . INTEGUMENTARY: DO YOU HAVE ANY RASHES OR OPEN SORES? NO . ALLERGIC/IMMUNO: ARE YOU ALLERGIC TO IV DYE? NO . ANY NEW ALLERGIES? NO . PSYCHIATRIC: DO YOU HAVE THOUGHTS OF HURTING YOURSELF OR SOMEONE ELSE? NO . ARE YOU ABUSED, NEGLECTED, OR IN AN UNSAFE ENVIRONMENT? NO . ENDOCRINOLOGY: ARE YOU DIABETIC? YES . OTHER: DO YOU NEED ANY PRESCRIPTIONS? NO . IF YES, PLEASE LIST: ____ . ANY NEW PROBLEMS WITH YOUR MEDICATIONS? NO . WHEN DID YOU LAST EAT? ____ . WHEN DID YOU LAST DRINK? ____ . WHAT DID YOU LAST DRINK? ____ . NAME OF PERSON DRIVING YOU HOME? ____ . DO YOU HAVE ANY OTHER QUESTIONS OR CONCERNS NO . VITAL SIGNS WT 240 LBS, HT 64.25 IN, BMI 40.87 INDEX, BP 188/85 MM HG, HR 90 /MIN, RR 18 /MIN, TEMP 95.7 F, OXYGEN SAT % 97%, NA INITIALS AW 1015, REVIEWED BY: EM. EXAMINATION GENERAL EXAMINATION: GENERALALERT,NO DISTRESS . PSYCHAFFECT NORMAL . LUNGS:LUNG SOUNDS ARE CLEAR . HEART:HEART RATE REGULAR . MUSCULOSKELETAL:MST 5/5 BILAT. LOWER EXTREMITIES . LUMBAR SACRAL SPINE TENDERNESS BILAT. SIJ R>L. DIAGNOSTIC TESTS REVIEWEDMRI L/S SPINE-2015. ASSESSMENTS SACROILIITIS - M46.1 (PRIMARY) TREATMENT SACROILIITIS NOTES: BILAT. SIJ. PROCEDURE CODES FA211 ESTABILISHED PATIENT [facility] CHARGE DISPOSITION & COMMUNICATION FOLLOW UP POST (REASON: BILAT. SIJ) ELECTRONICALLY SIGNED BY GAY CEDEÑO ON 10/24/2018 AT 04:05 PM EDT DISCLAIMER : THIS IS A VISIT SUMMARY EXTRACTED FROM THE [employer] CHART. IT IS NOT A COPY OF THE [employer] PROGRESS NOTE. MARYLOU
== END ==
LOC: M PAIN 10:15
PROVIDERS: ATTEND Nurse Practitioner Family
DX: M46.1 Sacroiliitis, not elsewhere classified (principal); E78.5 Hyperlipidemia, unspecified; E11.3292 Type 2 diabetes mellitus with mild nonproliferative diabetic retinopathy without macular edema, left eye; E11.22 Type 2 diabetes mellitus with diabetic chronic kidney disease; J45.909 Unspecified asthma, uncomplicated; F31.9 Bipolar disorder, unspecified; N18.3 Chronic kidney disease, stage 3 (moderate); I12.9 Hypertensive chronic kidney disease with stage 1 through stage 4 chronic kidney disease, or unspecified chronic kidney disease; Z86.73 Personal history of transient ischemic attack (TIA), and cerebral infarction without residual deficits; M43.14 Spondylolisthesis, thoracic region; M51.26 Other intervertebral disc displacement, lumbar region; Z87.440 Personal history of urinary (tract) infections; Z87.891 Personal history of nicotine dependence; Z88.8 Allergy status to other drugs, medicaments and biological substances

== ENCOUNTER 2018-10-15 11:58 | Emergency (ER) | payer MEDICARE, MEDICAID ==
[~2018-10-15] VITALS: Ht 152.4 cm; Wt 109.1 kg
[~2018-10-15 11:58] MED LIST changes: -MELA5CAP2 PO; -ROBA500T PO; -TYLETAB15 PO
[2018-10-15] MEDS ORDERED: MELA5CAP2 PO (15:15)
[2018-10-15] MEDS ORDERED: LASI20TA3 PO (15:15)
[2018-10-15] MEDS ORDERED: ACTO45TA12 PO (15:15)
[2018-10-15] MEDS ORDERED: TYLETAB15 PO (15:15)
[2018-10-15] MEDS ORDERED: ROBA500T PO (17:29)
[2018-10-15 17:33] VITALS: BP 180/90
--- NOTE | 2018-10-16 07:49 | REP ---
CT THORACIC SPINE WITHOUT CONTRAST: CT thoracic spine performed in the axial plane. Sagittal and coronal reconstruction images are performed. There is no compression fracture or malalignment. There is normal thoracic kyphosis. There is slight curvature toward the right. There is mild diffuse spurring of the mid to lower thoracic vertebral bodies. There is mild disc space narrowing and subchondral sclerosis at virtually all levels. Schmorl's nodes are seen at the inferior endplate of T8, the superior and inferior endplates of T9 and T10. I see no evidence of spinal stenosis. No abnormal density is seen in the spinal canal. No adjacent soft tissue abnormality is seen. IMPRESSION: Diffuse degenerative changes. No fracture or other significant abnormality. No evidence of spinal stenosis. Electronically Signed by Michael Farrell MD 10/16/2018 05:03 P
== END 2018-10-15 17:37 | disposition home or self-care (01) ==
LOC: M ED 11:58
DX: M51.34 Other intervertebral disc degeneration, thoracic region (principal); M62.830 Muscle spasm of back; I12.9 Hypertensive chronic kidney disease with stage 1 through stage 4 chronic kidney disease, or unspecified chronic kidney disease; N18.3 Chronic kidney disease, stage 3 (moderate); J45.909 Unspecified asthma, uncomplicated; E11.319 Type 2 diabetes mellitus with unspecified diabetic retinopathy without macular edema; E78.00 Pure hypercholesterolemia, unspecified; G43.909 Migraine, unspecified, not intractable, without status migrainosus; F41.9 Anxiety disorder, unspecified; F25.0 Schizoaffective disorder, bipolar type; Z79.899 Other long term (current) drug therapy; Z79.4 Long term (current) use of insulin; Z79.01 Long term (current) use of anticoagulants

== ENCOUNTER 2018-10-22 11:44 | Outpatient (RCR) | payer MEDICARE, MEDICAID ==
[~2018-10-22 11:44] MED LIST changes: +MELA5CAP2 PO; +ROBA500T PO; +TYLETAB15 PO
== END 2018-10-24 ==
LOC: M PT 11:44
PROVIDERS: ATTEND Orthopaedic Surgery
DX: Z47.89 Encounter for other orthopedic aftercare (principal); M25.562 Pain in left knee

== ENCOUNTER → 2018-11-20 | Outpatient (CLI) | payer MEDICARE, MEDICAID ==
[~2018-11-20] MED LIST changes: +ABIL1INJ2 IM; +BUPIVACAINE HCL 0.25% 30 ML VIAL As Ordered ONE; +CALC600T6 PO; +CETI10TA4 PO; -FENO145T13 PO; +FENO145T7 PO; -FENO48TA2; -FENO48TA2 PO; +FENO48TA7; +FENO48TA7 PO; +ISOVUE-M 200 41% 20ML VIAL (Q9966) As Ordered ONE; +LEVO500T3; +LIDOCAINE 1% SDV INJ 30 ML VIAL As Ordered ONE; -MAGN400T PO; +MAGN400T3 PO; +NITR100C2; -OMEP40CA2 PO; +OMEP40CA97 PO; +PHEN-501; +TRIAMCINOLONE ACETONIDE SUSP 40 MG/ML VIAL (J3301) As Ordered ONE; +VANC250C3 PO; +VENL75CA2; +VENL75CA47 PO; +VENTAER INH; -VICT18IN2; +VICT18IN2 SQ; +ZONI25CA13 PO; -ZONI25CA2 PO; +ZONI50CA11 PO; -ZONI50CA3 PO; +diazePAM 5 MG TAB As Ordered ONE; +oxyCODONE 5MG TAB As Ordered ONE
--- NOTE | 2018-11-20 18:34 | REP ---
FLUOROSCOPIC GUIDANCE FOR BILATERAL SI JOINT INJECTION: 11/20/2018. Clinical history: Low back pain. Findings: Five images from C-arm fluoroscopy provided to Dr. Heller of the pain clinic are reviewed. Needle is seen at the lower and midportion of each SI joint on respective images. Fluoroscopy time: 22 seconds. Electronically Signed by Cedric Escobar MD 11/20/2018 07:47 P
--- NOTE | 2018-11-24 00:05 | ECWPNPC ---
PATIENT NAME: PRUDENCIO SHAHID : 1965 GENDER: FEMALE VISIT DATE: 11/20/2018 DISCHARGE DATE: 11/20/18 1544 VISIT LOCKED DATE TIME: PHYSICIAN: PANDA SO MD RESOURCE: PANDA SO MD REASON FOR APPOINTMENT 1. BILAT. SIJ HISTORY OF PRESENT ILLNESS HISTORY OF PRESENT ILLNESS: PAIN THE PATIENT DESCRIBES THE PAIN... FALL RISK SCREENING: SCREENING :NO FALLS REPORTED IN THE LAST YEAR CURRENT MEDICATIONS TAKING HUMALOG 100 UNIT/ML SOLUTION SLIDING SCALE, IF BLOOD SUGAR IS 150 PT TAKES 10 UNITS, IF IT IS HIGHER THAN THAT 12 UNITS SUBCUTANEOUS SLIDING SCALE, MDD 24 UNITS TAKING LEVEMIR FLEXPEN 100 UNIT/ML SOLUTION 18 UNITS SUBCUTANEOUS TWICE A DAY TAKING VICTOZA 18 MG/3ML SOLUTION PEN-INJECTOR 1.8 ML SUBCUTANEOUS ONCE A DAY TAKING AMLODIPINE BESYLATE 2.5 MG TABLET 1 TABLET ORALLY ONCE A DAY, NOTES: 0900 TAKING LISINOPRIL 20 MG TABLET 1/2 TABLET ORALLY ONCE A DAY, NOTES: 0900 TAKING ACTOS 45MG TABLET 1 TABLET ORALLY ONCE A DAY TAKING DRISDOL 74647 UNIT CAPSULE 1 CAPSULE ORALLY WEEKLY TAKING MAGNESIUM OXIDE 400 MG TABLET 1 TABLET ORALLY ONCE A DAY TAKING ZONISAMIDE 25 MG CAPSULE 1 CAPSULES ORALLY BEFORE BEDTIME TAKING ATENOLOL 50 MG TABLET 1 TABLET ORALLY ONCE A DAY TAKING ASPIR-81 81 MG TABLET DELAYED RELEASE 1 TABLET ORALLY ONCE A DAY TAKING CALCIUM 600 + D 600-400 MG-UNIT TABLET 1 TABLET ORALLY ONCE A DAY TAKING MAY HAVE - - DIRECTED PATIENT WOULD BENEFIT FROM A TELEVISION OPERATOR ANIMAL DUE TO PSHCYOLOGICAL AND CARDIAC ISSUES TAKING EFFEXOR XR 75 MG CAPSULE EXTENDED RELEASE 24 HOUR 1 CAPSULE WITH FOOD ORALLY ONCE A DAY TAKING PLAVIX 75 MG TABLET 1 TABLET ORALLY ONCE A DAY, NOTES: TAKING ABILIFY MAINTENA 300 MG PREFILLED SYRINGE INTRAMUSCULAR MONTHLY TAKING PRAVASTATIN SODIUM 40 MG TABLET 1 TABLET ORALLY ONCE A DAY TAKING RANITIDINE HCL 150MG CAPSULE 1 CAPSULE ORALLY TWICE A DAY TAKING FLUCONAZOLE 150 MG TABLET 1 TABLET ORALLY DAILY TAKING ZOFRAN 4 MG TABLET 1 TABLETS ORALLY TWICE A DAY NEEDED FOR NAUSEA/VOMITING TAKING LIDOCAINE-PRILOCAINE 2.5-2.5 % CREAM DIRECTED TO LOW BACK EXTERNALLY TID PRN TAKING CETIRIZINE HCL 10MG TABLET TAKE ONE TABLET BY MOUTH ONCE DAILY NEEDED TAKING METHENAMINE HIPPURATE 1 GM TABLET 1 TABLET ORALLY TWICE A DAY TAKING HYDROCHLOROTHIAZIDE 25 MG TABLET 1 TABLET IN THE MORNING ORALLY ONCE A DAY TAKING COLACE 100 MG CAPSULE 1 CAPSULE NEEDED ORALLY ONCE A DAY TAKING GABAPENTIN 100 MG CAPSULE 2 CAPSULES ORALLY BID TAKING FENOFIBRATE 48 MG TABLET 1 TABLET ORALLY ONCE A DAY TAKING TYLENOL WITH CODEINE #3 300-30 MG TABLET 1 ORALLY EVERY 6 HRS PRN PAIN MDD3 MEDICATION LIST REVIEWED AND RECONCILED WITH THE PATIENT PAST MEDICAL HISTORY HYPERLIPIDEMIA DIABETES MELLITUS - WITH NON-PROLIFERATIVE RETINOPATHY LEFT EYE PER CENTER FOR SIGHT 06/2013. 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 DIFFUSE DISC BULGES AT THE L1-2 AND L3-4 LEVELS WITH MINIMAL THECAL SAC. 2. MINIMAL CENTRAL CANAL STENOSIS AT THE L4-5 LEVEL SECONDARY TO DISC BULGE, - CHRONIC PAIN MANAGEMENT THROUGH DR. SO [facility]) CKD STAGE 3 C. DIFF 10/2017 & 11/2017 & 02/2018 - S/P STOOL TRANSPLANT RECURRENT UTIS 05/2018 STOOL TRANSPLANT FOR C-DIFF ALLERGIES SEASONAL: NASAL CONGESTION - ALLERGY PEPTO BISMOL: THROAT SWELLS - ALLERGY METFORMIN HCL: CKD - METFORMIN STOPPED BY NEPHRO. 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 1 SON(S) , 2 DAUGHTER(S) - HEALTHY. ONE BROTHER FROM CARDIAC COMPLICATION\\\\\\\\NDAUGHTERS HAVE DEPRESSION. SOCIAL HISTORY GENERAL: TOBACCO USE ARE YOU A:FORMER SMOKER HOW LONG HAS IT BEEN SINCE YOU LAST SMOKED?> 10 YEARS HIV / HEP-C SCREENING HIV TEST OFFERED TO PATIENT:YES DATE OFFERED:06/30/2016 TEST ACCEPTED:NO REASON:PATIENT DECLINED BROCHURE PROVIDED TO PATIENTNO OTHERS AT HOME: CHILD DAUGHTER. DIET: NO CONCENTRATED SWEETS., CARBOHYDRATE CONTROLLED, LOW FAT, LOW CHOLESTEROL. LANGUAGE LANGUAGES SPOKEN:SPANISH DOMESTIC VIOLENCE DO YOU FEEL SAFE IN YOUR ENVIRONMENT?YES BMI CARE GOAL FOLLOW-UP ABOVE NORMAL BMI FOLLOW-UPDIETARY MANAGEMENT EDUCATION, GUIDANCE, AND COUNSELING RECREATIONAL DRUG USE DRUG USE?NO EXERCISE: WALKS 1 MILE WEATHER PERMITTING. LEARNING BARRIERS / SPECIAL NEEDS CHANGE FROM LAST VISIT?NO 10/29/2018 BARRIERS TO LEARNING?NO HEARING IMPAIRED?NO VISION IMPAIRED?YES :CORRECTIVE LENSES COGNITIVELY IMPAIRED?NO READINESS TO LEARN?YES LEARNING PREFERENCES?NO LEARNING CAPABILITIES PRESENT?YES EMOTIONAL BARRIERS?NO SPECIAL DEVICES?NO RESP THER NEEDED?NO LUNG CANCER SCREENING SMOKING STATUS:FORMER SMOKER PAIN CLINIC PFS, CLERGY, PUBLIC HEALTH REFERRALS PFS REFERRAL NEEDED?NO CLERGY REFERRAL NEEDED?NO PUBLIC HEALTH REFERRAL NEEDED?NO WAS THE PROVIDER NOTIFIED OF ANY PERTINENT INFO? N/A HAS THE PATIENT BEEN EDUCATED REGARDING HIS/HER PLAN OF CARE?YES HAS THE PATIENT BEEN EDUCATED REGARDING PAIN, THE RISK FOR PAIN, THE IMPORTANCE OF EFFECTIVE PAIN MANAGEMENT, AND THE PAIN ASSESSMENT PROCESS?YES LATEX QUESTIONNAIRE LATEX ALLERGY : HAVE YOU EVER DEVELOPED ANY TYPE OF REACTION AFTER HANDLING LATEX PRODUCTS SUCH RUBBER GLOVES, CONDOMS, DIAPHRAGMS, BALLOONS, SOCKS, OR UNDERWEAR?NO LATEX ALLERGY : HAVE YOU EVER DEVELOPED ANY TYPE OF REACTION DURING OR AFTER DENTAL APPOINTMENT, VAGINAL/RECTAL EXAMINATION, SURGICAL PROCEDURE, OR ANY OTHER EXPOSURE?NO LATEX RISK : HAVE YOU EVER HAD ANY DIFFICULTY BREATHING OR HIVES AFTER EATING OR HANDLING ANY FRUITS, OR VEGETABLES; SUCH KIWI, BANANAS, STONE FRUITS, OR CHESTNUTSNO LATEX RISK : DO YOU HAVE A PREVIOUS PERSONAL HISTORY OF MORE THAN NINE SURGERIES, SPINA BIFIDA, OR REPEATED CATHERIZATIONS? NO LATEX RISK : ARE YOU FREQUENTLY EXPOSED TO LATEX PRODUCTS IN YOUR OCCUPATION?NO DATE ASKED : 11/20/2018 CAFFEINE CAFFEINE USE?YES 1CUP COFFEE ADVANCE DIRECTIVE ADVANCE DIRECTIVE DISCUSSED WITH PATIENT:YES PT HAS HCP USMAN ROBERTS [phone] [employer] [id number] CHRISTIANITY MARITAL STATUS: .. ALCOHOL SCREENING DID YOU HAVE A DRINK CONTAINING ALCOHOL IN THE PAST YEAR?NO POINTS0 INTERPRETATIONNEGATIVE SEXUAL HX HAD SEX IN THE LAST 12 MONTHS (VAGINAL, ORAL, OR ANAL)?NO HAVE YOU EVER HAD AN STD?NO LMP:02/2016 REVIEWED WITH PT 11/13/17 1410 LASREVIEWED WITH PT 12/12/17 1027 LAS07/11/18 REVIEWED WITH PT. AD. HOSPITALIZATION/MAJOR DIAGNOSTIC PROCEDURE 3 DAYS FOR TIA 06/2013 SURGERIES REVIEW OF SYSTEMS REVIEWED BY: PROVIDER: . CONSTITUTIONAL: ANY CHANGE IN YOUR MEDICAL CONDITION? NO . CHILLS NO . FEVER NO . INFECTION: DO YOU HAVE NEW INFECTIONS? NO . DO YOU HAVE HISTORY OF MRSA? NO . MUSCULOSKELETAL: ANY NEW PATTERNS OF PAIN OR NUMBNESS? NO . GASTROENTEROLOGY: ANY NEW CHANGE IN BOWEL CONTROL? NO . GENITOURINARY: ANY NEW CHANGE IN BLADDER CONTROL? NO . IS THERE A CHANCE YOU COULD BE ? NO . HEMATOLOGY/LYMPH: DO YOU TAKE ANY BLOOD THINNERS? (FOR EXAMPLE- COUMADIN, PLAVIX, AGGRENOX, PLATEL, PRADAXA, OR XARELTO) YES . WHEN WAS YOUR LAST DOSE? DATE: TIME: 11/11/18@0900 <11/11/18@0900> . NEUROLOGY: HAVE YOU FALLEN IN THE PAST 12 MONTHS? NO . ANY NEW EXTREMITY NUMBNESS OR WEAKNESS? NO . CARDIOLOGY: DO YOU HAVE A PACEMAKER OR DEFIBRILLATOR? NO . RESPIRATORY: HAVE YOU BEEN SICK IN THE PAST WEEK? NO . FEVER NO . FLU LIKE SYMPTOMS? NO . COUGH NO . INTEGUMENTARY: DO YOU HAVE ANY RASHES OR OPEN SORES? NO . ALLERGIC/IMMUNO: ARE YOU ALLERGIC TO IV DYE? NO . ANY NEW ALLERGIES? NO . PSYCHIATRIC: DO YOU HAVE THOUGHTS OF HURTING YOURSELF OR SOMEONE ELSE? NO . ARE YOU ABUSED, NEGLECTED, OR IN AN UNSAFE ENVIRONMENT? NO . ENDOCRINOLOGY: ARE YOU DIABETIC? YES . OTHER: DO YOU NEED ANY PRESCRIPTIONS? NO . IF YES, PLEASE LIST: ____ . ANY NEW PROBLEMS WITH YOUR MEDICATIONS? NO . WHEN DID YOU LAST EAT? ____0600 . WHEN DID YOU LAST DRINK? ____1100 . WHAT DID YOU LAST DRINK? ____WATER . NAME OF PERSON DRIVING YOU HOME? ____[employer] AD[employer]RATIVE ASSISTANT . DO YOU HAVE ANY OTHER QUESTIONS OR CONCERNS NO . VITAL SIGNS WT 239.4 LBS, HT 64.25 IN, BMI 40.77 INDEX, BP 155/73 MM HG, HR 81 /MIN, RR 18 /MIN, TEMP 97.1 F, OXYGEN SAT % 93%, SAFE IN ENV? (Y/N) YES, NA INITIALS AW 1312, REVIEWED BY: IVY. ASSESSMENTS SACROILIITIS - M46.1 (PRIMARY) TREATMENT SACROILIITIS [facility] FLUORO GUIDANCE (PAIN)[id number] PROCEDURES PN SI PRE PROCEDURE DIAGNOSIS SACROILIITIS, SACROILIAC JOINT DYSFUNCTION POST PROCEDURE DIAGNOSIS SACROILIITIS, SACROILIAC JOINT DYSFUNCTION PROCEDURE BILATERAL SACROILIAC JOINT BLOCK SURGEON DR. PANDA SO MUSKRAT TRAPPER NONE ANESTHESIA LOCAL PRE PROCEDURE NOTE PATIENT WITH HISTORY OF CHRONIC LOW BACK PAIN. I EVALUATED THE PATIENT AND REVIEWED THE CHART. I WENT OVER THE RISKS, ALTERNATIVES, AND BENEFITS ASSOCIATED WITH THIS PROCEDURE. THE PATIENT WOULD LIKE TO PROCEED AND GAVE CONSENT TO PERFORM THE PROCEDURE. THE PATIENT DENIES UNEXPLAINABLE WEIGHT LOSS, FEVER, CHILLS, OR NEW CHANGES IN URINARY OR BOWEL CONTROL DESCRIPTION OF PROCEDURE THE PATIENT WAS BROUGHT TO THE PROCEDURE ROOM AND PLACED IN THE PRONE POSITION. THE LUMBOSACRAL AREA WAS CLEANED WITH CHLORAPREP SOLUTION AND DRAPED ASEPTICALLY. THE PROCEDURE WAS DONE UNDER STERILE CONDITIONS. I CHECKED LATERALITY AND THE LEVEL WHERE THE PROCEDURE WAS GOING TO BE PERFORMED WITH THE PATIENT AND THE SUPPORTING STAFF AT THE MOMENT OF THE TIME OUT IN THE PROCEDURE ROOM. UNDER FLUOROSCOPIC GUIDANCE, TARGET POINT WAS SELECTED AT THE LOWER BORDER OF THE RIGHT AND LEFT SACROILIAC JOINT. TARGET POINT WAS SELECTED AFTER MEDIAL ROTATION AND TILT OF THE MAGNIFIER OF THE C-ARM. LIDOCAINE WAS USED TO NUMB THE SKIN AND SUBCUTANEOUS TISSUE BELOW IT. A SPINAL NEEDLE, 22-GAUGE, WAS ADVANCED UNDER FLUOROSCOPIC GUIDANCE AND FOLLOWING PATIENT FEEDBACK UNTIL THE TARGET AREA WAS TOUCHED. THE POSITION OF THE NEEDLE WAS VERIFIED WITH AP AND LATERAL VIEWS. AFTER PROPER POSITION OF THE NEEDLE WAS ACHIEVED, ISOVUE M-200 CONTRAST WAS INJECTED SHOWING SPREAD OF THE DYE. THEN, A SOLUTION OF 30 MG OF KENALOG WAS INJECTED IN RIGHT AND LEFT JOINT WITH 3 ML OF BUPIVACAINE 0.125%. THERE WAS NO EVIDENCE OF BLOOD, PARESTHESIA OR CEREBROSPINAL FLUID DURING THE PROCEDURE. THE PATIENT WAS SENT TO THE RECOVERY ROOM. THE PATIENT WAS MOVING THE EXTREMITIES AND DOING WELL. THERE WAS NO COMPLICATION DURING THE PROCEDURE. FLUOROSCOPY TIME WAS 22 SECONDS POST PROCEDURE NOTE THE PATIENT WILL BE SEEN IN A FOLLOW UP IN THE NEXT FEW WEEKS. INSTRUCTIONS WERE GIVEN, QUESTIONS WERE ANSWERED, AND THE PATIENT EXPRESSED UNDERSTANDING AND AGREED WITH THE PLAN. I, BRTIT EVERETT, DOCUMENTED THE ABOVE INFORMATION ACTING A SCRIBE FOR DR. SO. I HAVE REVIEWED THE ABOVE DOCUMENT, WRITTEN BY BRITT EVERETT SCRIBE AND I VERIFY THAT IT IS ACCURATE. PROCEDURE CODES 94281 INJECT SACROILIAC JOINT, MODIFIERS: 50 [id number] RADXPS IN END [id number] PXD DISPOSITION & COMMUNICATION FOLLOW UP 3 WEEKS ELECTRONICALLY SIGNED BY PANDA SO MD, MD ON 11/23/2018 AT 05:00 PM EDT DISCLAIMER : THIS IS A VISIT SUMMARY EXTRACTED FROM THE [employer] CHART. IT IS NOT A COPY OF THE [employer] PROGRESS NOTE. MTDD
== END ==
LOC: M PAIN 13:00
PROVIDERS: ATTEND Anesthesiology
DX: G89.29 Other chronic pain (principal); M46.1 Sacroiliitis, not elsewhere classified; M54.5 Low back pain; E11.9 Type 2 diabetes mellitus without complications; I10 Essential (primary) hypertension; Z79.4 Long term (current) use of insulin; Z79.82 Long term (current) use of aspirin; Z79.899 Other long term (current) drug therapy; Z87.891 Personal history of nicotine dependence; Z88.8 Allergy status to other drugs, medicaments and biological substances
CPT/HCPCS: G0260; J3301; Q9966

== ENCOUNTER 2018-11-21 10:15 | Outpatient (RCR) | payer MEDICARE, MEDICAID ==
[~2018-11-21 10:15] MED LIST changes: -ABIL1INJ2 IM; -BUPIVACAINE HCL 0.25% 30 ML VIAL As Ordered ONE; -CALC600T6 PO; -CETI10TA4 PO; +FENO145T13 PO; -FENO145T7 PO; +FENO48TA2; +FENO48TA2 PO; -FENO48TA7; -FENO48TA7 PO; -ISOVUE-M 200 41% 20ML VIAL (Q9966) As Ordered ONE; -LEVO500T3; -LIDOCAINE 1% SDV INJ 30 ML VIAL As Ordered ONE; +MAGN400T PO; -MAGN400T3 PO; -NITR100C2; +OMEP40CA2 PO; -OMEP40CA97 PO; -PHEN-501; -TRIAMCINOLONE ACETONIDE SUSP 40 MG/ML VIAL (J3301) As Ordered ONE; -VANC250C3 PO; -VENL75CA2; -VENL75CA47 PO; -VENTAER INH; +VICT18IN2; -VICT18IN2 SQ; -ZONI25CA13 PO; +ZONI25CA2 PO; -ZONI50CA11 PO; +ZONI50CA3 PO; -diazePAM 5 MG TAB As Ordered ONE; -oxyCODONE 5MG TAB As Ordered ONE
== END 2018-11-24 ==
LOC: M PT 10:15
PROVIDERS: ATTEND Orthopaedic Surgery
DX: Z47.89 Encounter for other orthopedic aftercare (principal); M25.561 Pain in right knee; M25.562 Pain in left knee

== ENCOUNTER → 2018-12-10 | Outpatient (CLI) | payer OTHER, MEDICAID ==
--- NOTE | 2018-12-27 00:30 | ECWPNPC ---
PATIENT NAME: PRUDENCIO SHAHID : 1965 GENDER: FEMALE VISIT DATE: 12/10/2018 DISCHARGE DATE: 12/10/18 1122 VISIT LOCKED DATE TIME: PHYSICIAN: YULISSA STAUFFER RESOURCE: YULISSA STAUFFER REASON FOR APPOINTMENT 1. POST PROC HISTORY OF PRESENT ILLNESS HISTORY OF PRESENT ILLNESS: HERE FOR POST PROCEDURE F/U.HAD BILAT. SIJ BLOCK ON 11-20-18.REPORTING 100% IMPROVEMENT IN PAIN THAT CONTINUES TODAY.REPORTS THAT SHE DOESNT NEED TO TAKE PAIN MEDICATION,TYLENOL #3 SINCE PROCEDURE.RATING PAIN VAS 0/10. PAIN THE PATIENT DESCRIBES THE PAIN... THE PATIENT DESCRIBES THE PAIN... FALL RISK SCREENING: SCREENING :NO FALLS REPORTED IN THE LAST YEAR CURRENT MEDICATIONS TAKING HUMALOG 100 UNIT/ML SOLUTION SLIDING SCALE, IF BLOOD SUGAR IS 150 PT TAKES 10 UNITS, IF IT IS HIGHER THAN THAT 12 UNITS SUBCUTANEOUS SLIDING SCALE, MDD 24 UNITS TAKING LEVEMIR FLEXPEN 100 UNIT/ML SOLUTION 18 UNITS SUBCUTANEOUS TWICE A DAY TAKING VICTOZA 18 MG/3ML SOLUTION PEN-INJECTOR 1.8 ML SUBCUTANEOUS ONCE A DAY TAKING AMLODIPINE BESYLATE 2.5 MG TABLET 1 TABLET ORALLY ONCE A DAY, NOTES: 0900 TAKING LISINOPRIL 20 MG TABLET 1/2 TABLET ORALLY ONCE A DAY, NOTES: 0900 TAKING ACTOS 45MG TABLET 1 TABLET ORALLY ONCE A DAY TAKING DRISDOL 77163 UNIT CAPSULE 1 CAPSULE ORALLY WEEKLY TAKING MAGNESIUM OXIDE 400 MG TABLET 1 TABLET ORALLY ONCE A DAY TAKING ZONISAMIDE 25 MG CAPSULE 1 CAPSULES ORALLY BEFORE BEDTIME TAKING ATENOLOL 50 MG TABLET 1 TABLET ORALLY ONCE A DAY TAKING ASPIR-81 81 MG TABLET DELAYED RELEASE 1 TABLET ORALLY ONCE A DAY TAKING CALCIUM 600 + D 600-400 MG-UNIT TABLET 1 TABLET ORALLY ONCE A DAY TAKING MAY HAVE - - DIRECTED PATIENT WOULD BENEFIT FROM A CHIEF DIETITIAN ANIMAL DUE TO PSHCYOLOGICAL AND CARDIAC ISSUES TAKING EFFEXOR XR 75 MG CAPSULE EXTENDED RELEASE 24 HOUR 1 CAPSULE WITH FOOD ORALLY ONCE A DAY TAKING PLAVIX 75 MG TABLET 1 TABLET ORALLY ONCE A DAY TAKING ABILIFY MAINTENA 300 MG PREFILLED SYRINGE INTRAMUSCULAR MONTHLY TAKING PRAVASTATIN SODIUM 40 MG TABLET 1 TABLET ORALLY ONCE A DAY TAKING RANITIDINE HCL 150MG CAPSULE 1 CAPSULE ORALLY TWICE A DAY TAKING FLUCONAZOLE 150 MG TABLET 1 TABLET ORALLY DAILY TAKING ZOFRAN 4 MG TABLET 1 TABLETS ORALLY TWICE A DAY NEEDED FOR NAUSEA/VOMITING TAKING LIDOCAINE-PRILOCAINE 2.5-2.5 % CREAM DIRECTED TO LOW BACK EXTERNALLY TID PRN TAKING CETIRIZINE HCL 10MG TABLET TAKE ONE TABLET BY MOUTH ONCE DAILY NEEDED TAKING METHENAMINE HIPPURATE 1 GM TABLET 1 TABLET ORALLY TWICE A DAY TAKING HYDROCHLOROTHIAZIDE 25 MG TABLET 1 TABLET IN THE MORNING ORALLY ONCE A DAY TAKING COLACE 100 MG CAPSULE 1 CAPSULE NEEDED ORALLY ONCE A DAY TAKING GABAPENTIN 100 MG CAPSULE 2 CAPSULES ORALLY BID TAKING FENOFIBRATE 48 MG TABLET 1 TABLET ORALLY ONCE A DAY TAKING TYLENOL WITH CODEINE #3 300-30 MG TABLET 1 ORALLY EVERY 6 HRS PRN PAIN MDD3 MEDICATION LIST REVIEWED AND RECONCILED WITH THE PATIENT PAST MEDICAL HISTORY HYPERLIPIDEMIA DIABETES MELLITUS - WITH NON-PROLIFERATIVE RETINOPATHY LEFT EYE PER CENTER FOR SIGHT 06/2013. 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 DIFFUSE DISC BULGES AT THE L1-2 AND L3-4 LEVELS WITH MINIMAL THECAL SAC. 2. MINIMAL CENTRAL CANAL STENOSIS AT THE L4-5 LEVEL SECONDARY TO DISC BULGE, - CHRONIC PAIN MANAGEMENT THROUGH DR. SO [facility]) CKD STAGE 3 C. DIFF 10/2017 & 11/2017 & 02/2018 - S/P STOOL TRANSPLANT RECURRENT UTIS 05/2018 STOOL TRANSPLANT FOR C-DIFF ALLERGIES SEASONAL: NASAL CONGESTION - ALLERGY PEPTO BISMOL: THROAT SWELLS - ALLERGY METFORMIN HCL: CKD - METFORMIN STOPPED BY NEPHRO. 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 1 SON(S) , 2 DAUGHTER(S) - HEALTHY. ONE BROTHER FROM CARDIAC COMPLICATION\\\\\\\\NDAUGHTERS HAVE DEPRESSION. SOCIAL HISTORY GENERAL: TOBACCO USE ARE YOU A:FORMER SMOKER HOW LONG HAS IT BEEN SINCE YOU LAST SMOKED?> 10 YEARS HIV / HEP-C SCREENING HIV TEST OFFERED TO PATIENT:YES DATE OFFERED:06/30/2016 TEST ACCEPTED:NO REASON:PATIENT DECLINED BROCHURE PROVIDED TO PATIENTNO OTHERS AT HOME: CHILD DAUGHTER. DIET: NO CONCENTRATED SWEETS., CARBOHYDRATE CONTROLLED, LOW FAT, LOW CHOLESTEROL. LANGUAGE LANGUAGES SPOKEN:[place] DOMESTIC VIOLENCE DO YOU FEEL SAFE IN YOUR ENVIRONMENT?YES BMI CARE GOAL FOLLOW-UP ABOVE NORMAL BMI FOLLOW-UPDIETARY MANAGEMENT EDUCATION, GUIDANCE, AND COUNSELING RECREATIONAL DRUG USE DRUG USE?NO EXERCISE: WALKS 1 MILE WEATHER PERMITTING. LEARNING BARRIERS / SPECIAL NEEDS CHANGE FROM LAST VISIT?NO 10/29/2018 BARRIERS TO LEARNING?NO HEARING IMPAIRED?NO VISION IMPAIRED?YES COGNITIVELY IMPAIRED?NO :CORRECTIVE LENSES READINESS TO LEARN?YES LEARNING PREFERENCES?NO LEARNING CAPABILITIES PRESENT?YES EMOTIONAL BARRIERS?NO SPECIAL DEVICES?NO LEGAL EXECUTIVE NEEDED?NO LUNG CANCER SCREENING SMOKING STATUS:FORMER SMOKER PAIN CLINIC PFS, CLERGY, PUBLIC HEALTH REFERRALS PFS REFERRAL NEEDED?NO CLERGY REFERRAL NEEDED?NO PUBLIC HEALTH REFERRAL NEEDED?NO WAS THE PROVIDER NOTIFIED OF ANY PERTINENT INFO? N/A HAS THE PATIENT BEEN EDUCATED REGARDING HIS/HER PLAN OF CARE?YES HAS THE PATIENT BEEN EDUCATED REGARDING PAIN, THE RISK FOR PAIN, THE IMPORTANCE OF EFFECTIVE PAIN MANAGEMENT, AND THE PAIN ASSESSMENT PROCESS?YES LATEX QUESTIONNAIRE LATEX ALLERGY : HAVE YOU EVER DEVELOPED ANY TYPE OF REACTION AFTER HANDLING LATEX PRODUCTS SUCH RUBBER GLOVES, CONDOMS, DIAPHRAGMS, BALLOONS, SOCKS, OR UNDERWEAR?NO LATEX ALLERGY : HAVE YOU EVER DEVELOPED ANY TYPE OF REACTION DURING OR AFTER DENTAL APPOINTMENT, VAGINAL/RECTAL EXAMINATION, SURGICAL PROCEDURE, OR ANY OTHER EXPOSURE?NO DATE ASKED : 11/20/2018 LATEX RISK : HAVE YOU EVER HAD ANY DIFFICULTY BREATHING OR HIVES AFTER EATING OR HANDLING ANY FRUITS, OR VEGETABLES; SUCH KIWI, BANANAS, STONE FRUITS, OR CHESTNUTSNO LATEX RISK : DO YOU HAVE A PREVIOUS PERSONAL HISTORY OF MORE THAN NINE SURGERIES, SPINA BIFIDA, OR REPEATED CATHERIZATIONS? NO LATEX RISK : ARE YOU FREQUENTLY EXPOSED TO LATEX PRODUCTS IN YOUR OCCUPATION?NO CAFFEINE CAFFEINE USE?YES 1CUP COFFEE ADVANCE DIRECTIVE ADVANCE DIRECTIVE DISCUSSED WITH PATIENT:YES PT HAS HCP USMAN ROBERTS [phone] [employer] [id number] SCIENTOLOGIST MARITAL STATUS: .. ALCOHOL SCREENING DID YOU HAVE A DRINK CONTAINING ALCOHOL IN THE PAST YEAR?NO POINTS0 INTERPRETATIONNEGATIVE SEXUAL HX HAD SEX IN THE LAST 12 MONTHS (VAGINAL, ORAL, OR ANAL)?NO LMP:02/2016 HAVE YOU EVER HAD AN STD?NO REVIEWED WITH PT 11/13/17 1410 LASREVIEWED WITH PT 12/12/17 1027 LAS07/11/18 REVIEWED WITH PT. ADREVIEWED WITH PT 12/10/18 1025 NLJ. HOSPITALIZATION/MAJOR DIAGNOSTIC PROCEDURE 3 DAYS FOR TIA 06/2013 SURGERIES REVIEW OF SYSTEMS REVIEWED BY: PROVIDER: YULISSA RASHID . CONSTITUTIONAL: ANY CHANGE IN YOUR MEDICAL CONDITION? NO . CHILLS NO . FEVER NO . INFECTION: DO YOU HAVE NEW INFECTIONS? NO . DO YOU HAVE HISTORY OF MRSA? NO . MUSCULOSKELETAL: ANY NEW PATTERNS OF PAIN OR NUMBNESS? NO- STATES THE BILATERAL SIJ WORKED VERY WELL, STATES HER PAIN IS A 0/10 STATES THAT HER BED IS UNCOMFORTABLE AND THT IS THE ONLY TIME SHE FEELS PAIN IN HER LOWER BACK, STATES THAT SHE HAS INCREASED PAIN IN HER BILATERAL KNEES THAT SHE SOS FOR- PT WAS ENC TO CONTACT SOS REGARDING THIS PAIN . GASTROENTEROLOGY: ANY NEW CHANGE IN BOWEL CONTROL? NO . GENITOURINARY: ANY NEW CHANGE IN BLADDER CONTROL? NO . IS THERE A CHANCE YOU COULD BE ? NO . HEMATOLOGY/LYMPH: DO YOU TAKE ANY BLOOD THINNERS? (FOR EXAMPLE- COUMADIN, PLAVIX, AGGRENOX, PLATEL, PRADAXA, OR XARELTO) YES . WHEN WAS YOUR LAST DOSE? DATE:12/10/18 TIME: 0900 . NEUROLOGY: HAVE YOU FALLEN IN THE PAST 12 MONTHS? NO . ANY NEW EXTREMITY NUMBNESS OR WEAKNESS? NO . CARDIOLOGY: DO YOU HAVE A PACEMAKER OR DEFIBRILLATOR? NO . RESPIRATORY: HAVE YOU BEEN SICK IN THE PAST WEEK? NO . FEVER NO . FLU LIKE SYMPTOMS? NO . COUGH NO . INTEGUMENTARY: DO YOU HAVE ANY RASHES OR OPEN SORES? NO . ALLERGIC/IMMUNO: ARE YOU ALLERGIC TO IV DYE? NO . ANY NEW ALLERGIES? NO . PSYCHIATRIC: DO YOU HAVE THOUGHTS OF HURTING YOURSELF OR SOMEONE ELSE? NO . ARE YOU ABUSED, NEGLECTED, OR IN AN UNSAFE ENVIRONMENT? NO . ENDOCRINOLOGY: ARE YOU DIABETIC? YES . OTHER: DO YOU NEED ANY PRESCRIPTIONS? YES . IF YES, PLEASE LIST: ____PRILOCAINE/LIDOCAINE LOTION . ANY NEW PROBLEMS WITH YOUR MEDICATIONS? NO . WHEN DID YOU LAST EAT? ____ . WHEN DID YOU LAST DRINK? ____ . WHAT DID YOU LAST DRINK? ____ . NAME OF PERSON DRIVING YOU HOME? ____ . DO YOU HAVE ANY OTHER QUESTIONS OR CONCERNS YES- BECAUSE PT HAS BACK ISSUES HER DOCTORS WILL NOT ALOOW HER TO HAVE MEDS FOR HER BILATERAL KNEE PAIN WITHOUT SEEING PAIN CLINIC, PT STATES SHE RECEIVES SHOTS FROM SOS . VITAL SIGNS WT 241.2 LBS, HT 64.25 IN, BMI 41.08 INDEX, BP 146/72 MM HG, HR 103 /MIN, RR 18 /MIN, TEMP 96.9 F, OXYGEN SAT % 98%, SAFE IN ENV? (Y/N) YES, NA INITIALS AW 1036, REVIEWED BY: TONY. EXAMINATION GENERAL EXAMINATION: GENERALAWAKE,ALERT ,PLEAASANT . PSYCHAFFECT NORMAL . LUNGS:LUNG TOWNSEND ARE CLEAR TO AUSCULTATION BILATERALLY. GOOD MOVEMENT OF AIR . HEART:S1, S2 IN A REGULAR RATE AND RHYTHM. NO SIGNIFICANT MURMURS, RUBS OR GALLOPS NOTED . ASSESSMENTS SACROILIITIS - M46.1 TREATMENT SACROILIITIS CONTINUE COLACE CAPSULE, 100 MG, 1 CAPSULE NEEDED, ORALLY, ONCE A DAY CONTINUE TYLENOL WITH CODEINE #3 TABLET, 300-30 MG, 1, ORALLY, EVERY 6 HRS PRN PAIN MDD3 REFILL LIDOCAINE-PRILOCAINE CREAM, 2.5-2.5 %, DIRECTED TO LOW BACK, EXTERNALLY, TID PRN, 30 DAY(S), 1, REFILLS 2 NOTES: CONTINUE HOME EXCERSISE AND WEIGHT REDUCTION PLAN, ISTOP REGISTRY REVIEWED AND DEMONSTRATES COMPLLIANCE. BRINGS IN MEDICATIONS WHICH IS APPROPRIATE FOR WHAT WAS DISPENSED. RECENT URINE TOXICOLOGY REVIEWED. NO UNAUTHORIZED MEDICATIONS. NO ILLICIT SUBSTANCES AND PRESCRIBED MEDICATIONS WERE PRESENT. , RISKS OF NARCOTIC/OPIOD MEDICATIONS INCLUDES BUT IS NOT LIMITED TO RISK OF DEPENDANCE/DEVELOPMENT OF ADDICTION, MOOD DISTURBANCE AND DEPRESSION, OSTEOPOROSIS, HORMONAL AND LABIDAL CHANGES, RESPIRATORY DEPRESSION AND . PATIENT IS ADVISED NOT TO DRIVE OR DRINK ALCOHOL WHILE ON THESE MEDICATIONS. PROCEDURE CODES FA211 ESTABILISHED PATIENT [facility] CHARGE DISPOSITION & COMMUNICATION FOLLOW UP 2 MONTHS ELECTRONICALLY SIGNED BY GAY CEDEÑO ON 12/26/2018 AT 11:02 AM EDT DISCLAIMER : THIS IS A VISIT SUMMARY EXTRACTED FROM THE [employer] CHART. IT IS NOT A COPY OF THE [employer] PROGRESS NOTE. MARYLOU
== END ==
LOC: M PAIN 10:30
PROVIDERS: ATTEND Nurse Practitioner Family
DX: M46.1 Sacroiliitis, not elsewhere classified (principal); E78.5 Hyperlipidemia, unspecified; E11.9 Type 2 diabetes mellitus without complications; Z86.59 Personal history of other mental and behavioral disorders; I10 Essential (primary) hypertension; J45.909 Unspecified asthma, uncomplicated; Z87.891 Personal history of nicotine dependence; Z88.8 Allergy status to other drugs, medicaments and biological substances; Z79.01 Long term (current) use of anticoagulants; E66.01 Morbid (severe) obesity due to excess calories; Z68.41 Body mass index [BMI] 40.0-44.9, adult; Z79.4 Long term (current) use of insulin; Z79.82 Long term (current) use of aspirin; Z79.891 Long term (current) use of opiate analgesic; Z79.899 Other long term (current) drug therapy

== ENCOUNTER 2018-12-20 09:45 | Outpatient (RCR) | payer MEDICARE, MEDICAID | END 2018-12-24 | LOC: M PT 09:45 | PROVIDERS: ATTEND Orthopaedic Surgery | DX: Z47.89 Encounter for other orthopedic aftercare (principal); M25.561 Pain in right knee; M25.562 Pain in left knee ==

== ENCOUNTER → 2019-01-24 | Outpatient (RCR) | payer OTHER, MEDICAID ==
[~2019-01-24] MED LIST changes: +FENO48TA13; +FENO48TA13 PO; -FENO48TA2; -FENO48TA2 PO; -MAGN400T PO; +MAGN400T3 PO; -OMEP40CA2 PO; +OMEP40CA97 PO
== END ==
LOC: M PT 12-28 12:45
PROVIDERS: ATTEND Orthopaedic Surgery
DX: Z47.89 Encounter for other orthopedic aftercare (principal); M25.561 Pain in right knee; M25.562 Pain in left knee

== ENCOUNTER 2019-02-06 13:48 | Outpatient (RCR) | payer OTHER, MEDICAID ==
[~2019-02-06 13:48] MED LIST changes: -VICT18IN2; +VICT18IN2 SQ
[2019-02-08] MEDS ORDERED: CALC600T6 PO (11:24)
[2019-02-08] MEDS ORDERED: AMLO10TA5 PO (11:24)
[2019-02-08] MEDS ORDERED: VENTAER INH (11:24)
[2019-02-08] MEDS ORDERED: CETI10TA4 PO (11:24)
[2019-02-08] MEDS ORDERED: ABIL1INJ2 IM (11:24)
[2019-02-13] MEDS ORDERED: VENL75CA47 PO (11:39)
== END 2019-02-23 ==
LOC: M PT 13:48
PROVIDERS: ATTEND Orthopaedic Surgery
DX: Z47.89 Encounter for other orthopedic aftercare (principal); M25.562 Pain in left knee

== ENCOUNTER 2019-02-08 09:46 | Inpatient (IN) | payer OTHER, MEDICAID ==
[~2019-02-08] VITALS: Ht 152.4 cm; Wt 109.6 kg
[2019-02-08] MEDS: FLUTICASONE PROP 0.05% NASAL SPRAY 16 GM (FLONASE) SCH ×2 (09:00→21:00)
[~2019-02-08 09:46] MED LIST changes: -ABIL1INJ2 IM; -CALC600T6 PO; -CETI10TA4 PO; -VENL75CA47 PO; -VENTAER INH
[2019-02-08 10:20] LABS: BASO # 0.1 10^3/uL (0.0-0.2); BASO % 0.5 % (0.0-1.0); EOS # 0.6 10^3/uL (0.0-0.5); EOS % 6.9 % (0.0-3.0); HEMOGLOBIN 12.2 g/dl (12.0-15.5); LYMPH # 1.7 10^3/uL (1.5-5.0); LYMPH % 18.8 % (24.0-44.0); MEAN CORPUSCULAR HEMOGLOBIN 28.1 pg (27.0-33.0); MEAN CORPUSCULAR HGB CONC 32.1 g/dl (32.0-36.5); MEAN CORPUSCULAR VOLUME 87.6 fl (80.0-96.0); MONO # 0.5 10^3/uL (0.0-0.8); MONO % 5.3 % (0.0-5.0); NEUTROPHILS # 6.2 10^3/uL (1.5-8.5); NEUTROPHILS % 67.6 % (36.0-66.0); PLATELET COUNT, AUTOMATED 224 10^3/uL (150-450); RED BLOOD COUNT 4.34 10^6/uL (4.00-5.40); WHITE BLOOD COUNT 9.1 10^3/uL (4.0-10.0)
[2019-02-08 10:30] LABS: INR 0.99; PROTHROMBIN TIME 12.8 SECONDS (11.8-14.0)
--- NOTE | 2019-02-08 10:35 | REP ---
CT brain without contrast: History: CVA. Comparison MRI study is from July 18, 2013. Comparison CT study is from July 18, 2013. 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 The bony calvarium remains intact. Visualized paranasal sinuses are clear. No intraorbital abnormality is seen. There is no evidence of intracranial hemorrhage. No extra-axial fluid collection is seen. No mass, edema, or midline shift is seen. No infarct is seen. Impression: Negative noncontrast head CT. Electronically Signed by Doug Shane MD 02/08/2019 10:26 A
--- NOTE | 2019-02-08 10:36 | REP ---
Portable chest x-ray: Single view. History: CVA. Comparison study: July 19, 2018. Findings: EKG monitoring electrodes overlie the chest. Lungs are well inflated and clear. Heart is not enlarged. Pulmonary vasculature is not increased. Impression: No active disease. Electronically Signed by Doug Shane MD 02/08/2019 10:27 A
[2019-02-08 10:49] LABS: CK-MB VALUE MASS 1.4 NG/ML (<3.6); CPK CREATINE PHOSPHOKINASE 42 U/L (26-192); MB/CK RELATIVE INDEX 3.33 (< OR =4); TROPONIN I < 0.02 NG/ML (< 0.10)
[2019-02-08 11:08] LABS: ALBUMIN 3.2 GM/DL (3.2-5.2); ALT/SGPT 21 U/L (12-78); BILIRUBIN,DIRECT < 0.1 MG/DL (0.0-0.2); BILIRUBIN,TOTAL 0.3 MG/DL (0.2-1.0); BLOOD UREA NITROGEN 26 MG/DL (7-18); CALCIUM LEVEL 8.9 MG/DL (8.5-10.1); CARBON DIOXIDE LEVEL 26 MEQ/L (21-32); CHLORIDE LEVEL 104 MEQ/L (98-107); CREATININE FOR GFR 1.48 MG/DL (0.55-1.30); FREE T4 1.05 NG/DL (0.76-1.46); GLOMERULAR FILTRATION RATE 39.1 (>51); GLUCOSE, FASTING 195 MG/DL (70-100); MAGNESIUM LEVEL 1.6 MG/DL (1.8-2.4); POTASSIUM SERUM 3.6 MEQ/L (3.5-5.1); SODIUM LEVEL 139 MEQ/L (136-145); TOTAL PROTEIN 7.3 GM/DL (6.4-8.2)
[2019-02-08] MEDS ORDERED: MAG SULF 1GM/100ML (MAG RUN) 1 GM in IV 1 EA IV ONE (11:15)
[2019-02-08] MEDS ORDERED: VENTAER INH (11:24)
[2019-02-08] MEDS ORDERED: CETI10TA4 PO (11:24)
[2019-02-08] MEDS ORDERED: ABIL1INJ2 IM (11:24)
[2019-02-08] MEDS ORDERED: AMLO10TA5 PO (11:24)
[2019-02-08] MEDS ORDERED: CALC600T6 PO (11:24)
[2019-02-08] MEDS ORDERED: ALBUTEROL SULFATE 2.5 MG/0.5 ML INH NEB SOLN NEB PRN (11:45)
[2019-02-08] MEDS ORDERED: GLUCAGON FOR INJ 1 MG VIAL (J1610) SC PRN (12:00)
[2019-02-08] MEDS ORDERED: GLUCOSE 4 GM CHEW TABLET PO PRN (12:00)
[2019-02-08] MEDS ORDERED: DEXTROSE 50% 50 ML SYRINGE IV PRN (12:00)
[2019-02-08] MEDS: HumaLOG INSULIN (NovoLOG) PER UNIT SC SCH ×3 (12:31→21:00)
--- NOTE | 2019-02-08 13:27 | CR ---
DATE OF CONSULTATION: 02/08/2019 REFERRING PHYSICIAN: Dr. Yue Adams in the emergency room and Dr. Astrid Flowers. INDICATION: Atrioventricular (AV) block. HISTORY OF PRESENT ILLNESS: Mrs. Spears is previously known to me. She is a pleasant lady who has a multitude of medical problems that include hypertensive heart disease, type 2 diabetes, morbid obesity, dyslipidemia and shortness of breath. She presented to the emergency room as a referral from the pain clinic. It was noted during her routine visit that she was quite bradycardic. This is new for her. Her typical heart rate is in 80s or 90s and it was noted that her heart rate was dipping into the 40s. An electrocardiogram reveals evidence for second-degree AV block. It most likely is type 1, even though she has episodes of 2:1 conduction, but most often she would have a typical Wenckebach phenomenon with gradually prolonging KS interval and then dropped beats. Unfortunately, there is underlying wide QRS complex with right bundle branch block and left anterior hemiblock. She does report that she has been feeling dizzy and lightheaded in the last 3 weeks. She never felt pre or near syncopal and did not have any syncopal events. PAST MEDICAL HISTORY: 1. Hypertension. 2. Dyslipidemia. 3. Type 2 diabetes. 4. Morbid obesity. 5. Bipolar disorder. 6. Questionable transient ischemic attack (TIA) in 2009. 7. No known coronary artery disease. Her last evaluation for ischemia was a pharmacologic PET scan in August 2017 that revealed ejection fraction 76% and normal perfusion. Her last echocardiogram was in July of this year and revealed moderate left ventricular hypertrophy with preserved systolic function, grade 1 diastolic dysfunction and no valvular disease. OUTPATIENT MEDICATIONS: - Tylenol with Codeine - albuterol - amlodipine 200 mg a day - Abilify 400 mg intramuscularly once a month - aspirin 81 a day - atenolol 50 a day - calcium with vitamin D - cetirizine 10 mg a day - Plavix 75 mg a day - Colace 100 mg a day - fenofibrate 48 mg a day - gabapentin 200 mg twice a day - hydrochlorothiazide 25 mg a day - insulin Victoza - lisinopril 40 mg daily - magnesium 400 mg daily - melatonin as needed for sleep - Actos 40 mg daily - pravastatin 40 mg daily - Topamax 100 mg at night - Effexor 150 mg daily - zonisamide 25 mg at night PAST SURGICAL HISTORY: section times two. Resection of spinal tumor. Right ankle surgery. Cholecystectomy. Cataract surgery. FAMILY HISTORY: Noncontributory. There is no history of sudden cardiac even though she does believe that her mother had a pacemaker when she was older. SOCIAL HISTORY: The patient lives alone. She does not smoke and does not drink alcohol. She quit smoking years ago. REVIEW OF SYSTEMS: She denies any recent changes in her medications. She denies any recent fever, chills, nausea or vomiting. She did have few episodes of mild diarrhea. No abdominal pain. No syncope nor syncope and no peripheral edema. The rest of review of systems are as per HPI or otherwise negative. PHYSICAL EXAMINATION: Mrs. Spears is a middle-aged female who appears her age or older. She is alert and oriented, does not appear to be in any distress. Last documented vital signs blood pressure 139/66, heart rate 72 beats per minute. I spent a lot of time at her bedside and her heart rate was most of the time more than 50 beats per minute and often in 70s and 80s. She is afebrile. Saturation is 96% on room air. Her weight was documented as 111 kg. She is alert and oriented and appropriate. 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 Lungs are clear. Heart exam reveals regular rhythm. I do not appreciate any gallop, rub or murmur. This is a alternating with episode of irregular rhythm during the episode of AV block. Abdomen is obese but soft. No obvious tenderness. No hepatosplenomegaly. No guarding. Extremities are free of edema. Peripheral pulses were good quality. Neurologically she is intact. LABORATORIES: Normal CBC. Basic metabolic panel sodium 139, potassium's 3.6, BUN 26, creatinine 1.5 and glucose 195, magnesium 1.6, normal liver function tests. Normal cardiac enzymes. Normal albumin and TSH was 2.5. ECG reveals presence of sinus rhythm with episodes of second-degree AV block type 1 and underlying bifascicular block with right bundle branch block and left anterior fascicular hemiblock. ASSESSMENT/PLAN: Mrs. Spears is a 53-year-old female who has no prior history of conduction system disease who presents with second-degree AV block type 1. I cannot rule out that it is even higher degree of AV block. She is dizzy at times but not very symptomatic and her heart rate is relatively normal. At this point I believe that we can monitor the patient on telemetry and just discontinue her beta-lane. Hopefully that will lead to resolution of the AV block but if not, I think that she might need a pacemaker even though my suspicion at this point is relatively low. In the interim, she will be kept on the monitoring for at least 24-48 hours. She has defibrillator patches on her chest in case she needs to be paced emergently. I am also going to discontinue Plavix in case she needs a device placed to reduce the risk of bleeding. I believe this is safe as she has not had any recent ischemic events. I spoke about this with Dr. Flowers.
[2019-02-08 15:30] VITALS: BP 118/72
--- NOTE | 2019-02-08 16:11 | HPEPDOC ---
General Date of Admission 02/08/19 Date of Service: Feb 08, 2019 Chief Complaint The patient is a 53-year-old female admitted with a reason for visit of Low Pulse, Fatigue. 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 There she was found to be bradycardic with Pulse in 40s so was sent to the ED. She complained of having a sinus congestion with pain in her forehead, cough and nasal stuffiness for the past 2 days. She has also been feeling dizzy and light headed. She also felt her asthma was acting up and had to use her inhaler and nebs yesterday. She also had 3 to 4 episodes of small amount of diarrhea 2 days ago. In the ED EKG showed second degree heart block Mobitz type 1 with RBBB and left anterior precious block and her Qtc was prolonged to 551. Rate was 62. Patient is being admitted for hear block with symptomatic brachycardia. Home Medications Scheduled Amlodipine Besylate (Amlodipine Besylate) 10 Mg Tablet, 10 MG PO DAILY, (Reported) Aripiprazole (Abilify Maintena) 400 Mg Suser.syr, 400 MG IM QMONTH, (Reported) Aspirin (Aspirin EC) 81 Mg Tab, 81 MG PO DAILY, (Reported) Atenolol (Atenolol) 50 Mg Tablet, 50 MG PO DAILY, (Reported) Calcium Carbonate/Vitamin D3 (Calcium 600-Vit D3 400 Tablet) 1 Each Tablet, 1 TAB PO DAILY, (Reported) Cetirizine HCl (Cetirizine HCl) 10 Mg Tablet, 10 MG PO DAILY, (Reported) Clopidogrel Bisulfate (Clopidogrel) 75 Mg Tab, 75 MG PO DAILY, (Reported) Fenofibrate Nanocrystallized (Fenofibrate) 48 Mg Tablet, 48 MG PO DAILY, (Reported) Fluticasone Propionate (Flonase Allergy Relief) 50 Mcg/Act Spr, 1 SPRAY NA BID, (Reported) Gabapentin (Gabapentin) 100 Mg Cap, 200 MG PO BID, (Reported) Hydrochlorothiazide (Hydrochlorothiazide) 25 Mg Tablet, 25 MG PO DAILY, (Reported) Insulin Aspart (Novolog Flexpen) 100 Unit/Ml Inj, 1 DOSE SQ ACHS, (Reported) 0-80 nothing 80-150 12units breakfst/10 lunch/8 dinner 151-250 14 breakfast/ 12 lunch/ 10 dinner 251-350 15 breakfast/ 13 lunch/ 11 dinner 351-400 16 srinivas kfast/ 14 lunch/ 12 dinner Insulin Detemir (Levemir) 1 Units/0.01 Ml Susp, 20 UNITS SC BID, (Reported) Liraglutide (Victoza 3-Waqas) 0.6 Mg/0.1 Ml Pen.injctr, 1.8 MG SQ DAILY, (Reported) Lisinopril (Lisinopril) 40 Mg Tablet, 40 MG PO DAILY, (Reported) Magnesium Oxide (Magnesium Oxide) 400 Mg Tab, 400 MG PO DAILY, (Reported) Melatonin (Melatonin) 5 Mg Capsule, 5 MG PO QHS, (Reported) Methenamine Hippurate (Methenamine Hippurate) 1 Gm Tablet, 1 GM PO BID, (Reported) Pioglitazone HCl (Actos) 45 Mg Tablet, 45 MG PO DAILY, (Reported) Pravastatin Sodium (Pravastatin Sodium) 40 Mg Tablet, 40 MG PO DAILY, (Reported) Topiramate (Topamax) 100 Mg Tab, 100 MG PO QHS, (Reported) Venlafaxine HCl (Venlafaxine HCl ER) 75 Mg Cap.er.24h, 75 MG PO DAILY Zonisamide (Zonisamide) 25 Mg Capsule, 25 MG PO QHS, (Reported) Scheduled PRN Acetaminophen with Codeine (Tylenol with Codeine #4 Tablet) 1 Each Tablet, 1 TAB PO TID PRN for PAIN, (Reported) Albuterol Sulf (Albuterol Sulfate) 2.5 Mg/3 Ml Nebu, 2.5 MG INH QID PRN for SHORTNESS OF BREATH, (Reported) Albuterol Sulfate (Ventolin Hfa) 18 Gm Hfa.aer.ad, 2 PUFFS INH Q6H PRN for SHORTNESS OF BREATH, (Reported) Docusate Sodium (Colace) 100 Mg Cap, 100 MG PO DAILY PRN for CONSTIPATION, (Reported) Allergies Coded Allergies: bismuth subsalicylate (Verified Allergy, Unknown, 07/19/18) swelling metformin (Verified Allergy, Unknown, 07/19/18) kidney failure Past Medical History Medical History HYPERLIPIDEMIA DIABETES MELLITUS - WITH NON-PROLIFERATIVE RETINOPATHY LEFT EYE CKD STAGE 3 DEPRESSION HYPERTENSION CVA/TIA 06/2013 WITH NO RESIDUAL WEAKNESS GENITAL HERPES ASTHMA BIPOLAR DISORDER (DR GONZALEZ ) COLONOSCOPY IN 2006 (MOTHER HAS CROHN'S DISEASE) OSTEOARHTRITIS OF THORACIC SPINE PNEUMOVAX 2006 CHRONIC BACK PAIN DDD/DJD L/S SPINE MRI . DIFFUSE DISC BULGES AT THE L1-2 AND L3-4 LEVELS WITH MINIMAL THECAL SAC. 2. MINIMAL CENTRAL CANAL STENOSIS AT THE L4-5 LEVEL SECONDARY TO DISC BULGE, - CHRONIC PAIN MANAGEMENT THROUGH [facility]) C. 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 1 SON(S) , 2 DAUGHTER(S) - HEALTHY. ONE BROTHER FROM CARDIAC COMPLICATION Social History * Smoker: former Smoker Alcohol: Denies Drugs: denies A-FIB/CHADSVASC A-FIB History Current/History of A-Fib/PAF?: No Review of Systems Constitutional: Reports: Chills ENT: Reports: Head Aches, Sinus Congestion, Sore Throat Skin: Denies: Rash, Lesions, Breakdown Pulmonary: Reports: Dyspnea, Cough Cardiovascular: Reports: Lt Headedness; Denies: Chest Pain, Palpitations, Orthopnea, Paroxysmal Noc. Dyspnea Gastrointestinal: Reports: Diarrhea; Denies: Nausea, Vomiting, Abdominal Pain Genitourinary: Denies: Dysuria, Frequency, Incontinence, Retention Hematologic: Denies: Bruising, Bleeding Excessively Musculoskeletal: Reports: Neck Pain, Back Pain, Shoulder Pain Neurological: Denies: Change in speech, Confusion Physical Examination General Exam: Positive: Alert, Cooperative, No Acute Distress Eye Exam: Positive: PERRLA, Conjunctiva & lids normal, EOMI; Negative: Sclera icteric ENT Exam: Positive: Atraumatic, Mucous membr. moist/pink, Pharynx Normal Neck Exam: Positive: Supple; Negative: JVD, thyromegaly Chest Exam: Positive: Clear to auscultation, Normal air movement, Diminished Heart Exam: Positive: Bradycardic, Regular Rhythm, Normal S1, Normal S2; Negative: Murmurs, Rubs Telemetry: Positive: Sinus, Bradycardia Abdomen Exam: Positive: Normal bowel sounds, Soft; Negative: Tenderness, Hepatospenomegaly Extremity Exam: Positive: Edema (trace), Normal pulses; Negative: Clubbing, Cyanosis Skin Exam: Positive: Nl turgor and temperature; Negative: Breakdown, Lesion Neuro Exam: Positive: Normal Speech, Strength at 5/5 X4 ext Vital Signs Vital Signs Date Time Temp Pulse Resp B/P (MAP) Pulse Ox O2 Delivery O2 Flow Rate FiO2 02/08/19 10:49 02/08/19 10:44 97.5 44 20 99 Room Air Laboratory Data Labs 24H Laboratory Tests 2 02/08/19 10:07: Immature Granulocyte % (Auto) 0.9, Neutrophils (%) (Auto) 67.6H, Lymphocytes (%) (Auto) 18.8L, Monocytes (%) (Auto) 5.3H, Eosinophils (%) (Auto) 6.9H, Basophils (%) (Auto) 0.5, Neutrophils # (Auto) 6.2, Lymphocytes # (Auto) 1.7, Monocytes # (Auto) 0.5, Eosinophils # (Auto) 0.6H, Basophils # (Auto) 0.1, Nucleated Red Blood Cells % (auto) 0.0, Prothrombin Time 12.8, Prothromb Time International Ratio 0.99, Activated Partial Thromboplast Time 25.0, Anion Gap 9, Glomerular Filtration Rate 39.1L, Calcium Level 8.9, Magnesium Level 1.6L, Total Bilirubin 0.3, Direct Bilirubin < 0.1, Aspartate Amino Transf (AST/SGOT) 9, Alanine Aminotransferase (ALT/SGPT) 21, Alkaline Phosphatase 141H, Total Creatine Kinase 42, Creatine Kinase MB 1.4, Creatine Kinase MB Relative Index 3.33, Troponin I < 0.02, Total Protein 7.3, Albumin 3.2, Albumin/Globulin Ratio 0.78L, Thyroid Stimulating Hormone (TSH) 2.450, Free Thyroxine 1.05 02/08/19 10:38: Bedside Glucose (Misc Panel) 172H 02/08/19 10:39: POC Glucose (Misc Panel) 161H, POC Sodium (Misc Panel) 140, POC Potassium (Misc Panel) 3.4L, POC Chloride (Misc Panel) 105, POC Total CO2 (Misc Panel) 24.0, POC Blood Urea Nitrogen (Misc Panel 23, POC Ionized Calcium (Misc Panel) 4.8, POC Creatinine (Misc Panel) 1.2, POC Hematocrit (Misc Panel) 32.0L 02/08/19 10:41: Bedside Prothrombin Time INR 1.0, Prothrombin Time (MISC) 12.3 CBC/BMP Laboratory Tests 02/08/19 10:07 Assessment/Plan 53 year old female with mobid obesity, chronic back pain, diabetes, hypertension, hyperlipidemia, asthma, psychiatric issues, 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 There she was found to be bradycardic with Pulse in 40s so was sent to the ED. She complained of having a sinus congestion with pain in her forehead, cough and nasal stuffiness for the past 2 days. She has also been feeling dizzy and light headed. She also felt her asthma was acting up and had to use her inhaler and nebs yesterday. She also had 3 to 4 episodes of small amount of diarrhea 2 days ago. In the ED EKG showed second degree heart block Mobitz type 2 with RBBB and left ant hemifascicular block and her Qtc was prolonged to 551. Rate was 62. Patient is being admitted for hear block with symptomatic brachycardia. Symptomatic bradycardia with AV block and bundle branch blocks with prolonged qtc. vitals stable will stop atenolol, will reduced dose of venlafaxine to half due to QTC prolongation. Diabetes will continue levemir and lispro AC and HS as epr FS. NPO till evening then if no procedure anticipated can start carb consistent diet. Hypertension stop atenolol continue amlodipine and HCTZ, lisinopril. CKD stage 3 creatinine at baseline. Hyperlipidemia statin, fenofibrate H/O CVA and TIA continue ASA, plavix , statin Chronic back pain with neuropathy continue home meds gabapentin, topiramate Psychiatric issues continue half dose of venlafaxine, zonisamide and IM abilify Plan / VTE VTE Prophylaxis Ordered?: Yes MAISHA PALACIOS MD Feb 08, 2019 12:07
[2019-02-08] MEDS ORDERED: SLF 3 ML SYR IV PRN (17:30)
--- NOTE | 2019-02-08 19:08 | ECGEPIP ---
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
[2019-02-08 20:00] VITALS: BP 135/78
[2019-02-08] MEDS: LEVEMIR (INSULIN DETEMIR) 1 UNITS/0.01ML SC SCH (21:00)
[2019-02-08] MEDS ORDERED: ZONISAMIDE 50 MG CAP (ZONEGRAN) PO SCH (21:00)
[2019-02-08] MEDS: SLF 3 ML SYR IV SCH (22:06)
[2019-02-08] MEDS: TOPIRAMATE (TopAMAX) 100 MG TAB PO SCH (22:07)
[2019-02-08] MEDS: GABAPENTIN 100 MG CAP PO SCH (22:07)
[2019-02-09] VITALS (7 sets, daily range): BP systolic 126–151; BP diastolic 64–88
[2019-02-09] MEDS: SLF 3 ML SYR IV SCH ×3 (05:58→21:21)
[2019-02-09 06:14] LABS: BASO # 0.1 10^3/uL (0.0-0.2); BASO % 0.6 % (0.0-1.0); EOS # 0.6 10^3/uL (0.0-0.5); EOS % 6.8 % (0.0-3.0); HEMATOCRIT 35.5 % (36.0-47.0); HEMOGLOBIN 11.4 g/dl (12.0-15.5); LYMPH % 21.7 % (24.0-44.0); MEAN CORPUSCULAR HEMOGLOBIN 28.1 pg (27.0-33.0); MEAN CORPUSCULAR HGB CONC 32.1 g/dl (32.0-36.5); MEAN CORPUSCULAR VOLUME 87.7 fl (80.0-96.0); MONO # 0.6 10^3/uL (0.0-0.8); MONO % 6.1 % (0.0-5.0); NEUTROPHILS # 5.7 10^3/uL (1.5-8.5); NEUTROPHILS % 63.8 % (36.0-66.0); PLATELET COUNT, AUTOMATED 192 10^3/uL (150-450); RED BLOOD COUNT 4.05 10^6/uL (4.00-5.40)
[2019-02-09 06:40] LABS: CALCIUM LEVEL 8.7 MG/DL (8.5-10.1); CREATININE FOR GFR 1.34 MG/DL (0.55-1.30); GLOMERULAR FILTRATION RATE 43.9 (>51)
[2019-02-09] MEDS: HumaLOG INSULIN (NovoLOG) PER UNIT SC SCH ×4 (07:30→20:54)
[2019-02-09] MEDS: FLUTICASONE PROP 0.05% NASAL SPRAY 16 GM (FLONASE) SCH ×2 (09:00→21:21)
[2019-02-09] MEDS ORDERED: LISINOPRIL 40 MG TAB PO SCH (09:00)
[2019-02-09] MEDS ORDERED: VENLAFAXINE **XR** 75MG CAPSULE PO SCH (09:00)
[2019-02-09] MEDS: LEVEMIR (INSULIN DETEMIR) 1 UNITS/0.01ML SC SCH ×2 (09:00→21:21)
[2019-02-09] MEDS ORDERED: CLOPIDOGREL 75 MG TAB PO SCH (09:00)
[2019-02-09] MEDS: VENLAFAXINE **XR** 75MG CAPSULE PO SCH (09:26)
[2019-02-09] MEDS: FENOFIBRATE 48 MG TAB (TRICOR) PO SCH (09:26)
[2019-02-09] MEDS: CETIRIZINE (ZyrTEC) 10 MG TAB PO SCH (09:27)
[2019-02-09] MEDS: amLODIPine 10 MG TAB PO SCH (09:27)
[2019-02-09] MEDS: GABAPENTIN 100 MG CAP PO SCH ×2 (09:27→21:20)
[2019-02-09] MEDS: PRAVASTATIN 20 MG TAB PO SCH (09:27)
[2019-02-09] MEDS: ASPIRIN 81 MG ENTERIC TAB PO SCH (09:27)
[2019-02-09] MEDS: MAGNESIUM OXIDE 400 MG TAB (MAG-OX) PO SCH (09:27)
[2019-02-09] MEDS: hydroCHLOROthiazide 25 MG TAB PO SCH (09:27)
--- NOTE | 2019-02-09 12:17 | IPN ---
DATE: 02/09/2019 Mrs. Spears has not had any significant events overnight. Her condition remains the same. She still feeling tired but has no other complaints. If anything, she does admit that she has some mild numbness of her left upper extremity. Telemetry monitoring, unfortunately, continues to revealed similar findings like yesterday. She does have underlying sinus rhythm with episodes of second-degree arteriovenous (AV) block, most likely type 1, even though she has frequent episodes of 2:1 conduction. The underlying QRS complex remains wide. Her last atenolol dose was yesterday morning. Vital signs this morning, blood pressure 135/72, heart rate is in 70s. She is afebrile. Saturation 95% on room air. Her weight is 108 kg. She is alert and oriented, appropriate. Her JVP is not high. Lungs are clear. Good air movement. Heart exam reveals somewhat muffled heart sound corresponding to her obesity. I do not appreciate any murmur today. Abdomen: Soft, nontender. Extremities: Free of edema. Neurologically, she is intact. I would do not detect any obvious left-sided weakness. Laboratory barney: Basic metabolic panel reveals normal finding, but for creatinine 1.3 and glucose 123. CBC is normal, but for trivial anemia with hemoglobin 11.4, hematocrit 35.5. ASSESSMENT/PLAN: Mrs. Spears is a 53-year-old lady who comes with history of three days of dizzy feeling, but no syncope and near-syncope. She is found to have episodes of second-degree arteriovenous (AV) I believe principally type 1, even though there are episodes of 2:1 conduction more commonly at night. There were no long pauses. I do believe that we can wait one more day for the effect of atenolol to subside, provided though she continues to have the similar abnormalities tomorrow, I believe that it is appropriate to proceed with placement of pacemaker. I contacted Dr. Schmitz and gave him heads up about this possible development, but the final decision would be made tomorrow morning. I would not introduce any new changes to her regimen today, and will continue monitoring.
--- NOTE | 2019-02-09 16:49 | REP ---
MR angiography the brain without contrast: History: Left arm weakness and paresthesia. Technique: 3-D [id number] MR angiography of the brain is acquired in the usual fashion and maximal intensity projection images were generated in rotational format about the vertical and horizontal axes. In addition, source axial T1-weighted images are viewed in cine mode. MR angiographic findings: The distal vertebral arteries are patent left larger than right. Basilar artery is a little tortuous but widely patent. The posterior cerebral and superior cerebellar vessels are normal and symmetric. The distal internal carotid arteries are unremarkable. Anterior and middle cerebral arteries appear intact. There is no visible dodge aneurysm or arteriovenous malformation. Impression: Unremarkable MR angiography the brain. Electronically Signed by Doug Shane MD 02/09/2019 04:41 P
--- NOTE | 2019-02-09 16:51 | REP ---
MRI brain without contrast: History: Left arm weakness paresthesia. Comparison CT study February 08, 2019. Technique: Axial and sagittal imaging planes are utilized for T1 and T2-weighted scans. Sequences include spin-echo, fast spin echo, FLAIR, and diffusion weighted sequences. MRI findings: Bony calvarium is intact. Craniocervical junction and upper cervical cord are normal in appearance. There is no evidence of significant paranasal sinus disease. No intraorbital abnormality is seen. There is a small old lacunar infarct in the basal ganglia on the right adjacent to the body of the right lateral ventricle. There is no evidence of acute infarct or intracranial hemorrhage. Diffusion weighted scans show no evidence of restricted diffusion to suggest acute ischemia. There is no extra-axial fluid collection, mass or midline shift. Impression: Tiny old lacunar infarct right basal ganglia. Minimal small vessel changes. No acute intracranial abnormality. Electronically Signed by Doug Shane MD 02/09/2019 04:43 P
--- NOTE | 2019-02-09 16:53 | IPN ---
DATE: 02/09/2019 SUBJECTIVE: The patient was admitted yesterday with rhythm disturbance. She reports a 3-day history of left arm weakness and paresthesias. She does have a remote history of stroke in 2013 but says this was a new onset of symptoms, that apparently she did not reveal to anyone until now. Overnight her rhythm has continued to display bradycardia with intermittent second-degree atrioventricular (AV) block that looks most consistent with most of the tracings reviewed with Wenckebach pattern. I reviewed the situation with Dr. Ayala today, who suggested that another 24 hours of observation would be justified before considering further intervention, so will go ahead and allow her to have something to eat today. She has no new symptoms. No chest pain, no dyspnea or abdominal discomfort overnight and feels comfortable at this time other than admitting to persistent sense of weakness in the left hand and differential sensation in her left hand and leg compared to the right. PHYSICAL EXAMINATION: Vital signs: Blood pressure 135/72, pulse 69, irregular, respiratory rate 18, oxygen saturation 95% on room air. Obese white female in no apparent distress. Weight measures 108 kg, body mass index (BMI) 46.5. There is facial asymmetry with left slightly droopier than the right. Tongue movements are normal. She can activate with respect to eyebrow elevation and puffing her cheeks normally. Tongue movements are also normal. She believes that her speech sounds normal to her. Hydro Mechanic strength is 4/5 on the left, 5/5 on the right. Straight leg raising is demonstrated equally. Sensation subjectively is diminished left hand versus right, left foot versus right. Facial sensation is normal, symmetrical by her history. Abdomen is soft, nontender. No guarding. Heart: No murmur identified. No bruits are noted on auscultation of her carotids and she has no pitting edema. ASSESSMENT: 1. Dysrhythmia. 2. Type 2 heart block. 3. Bradycardia, which may be a side effect of atenolol use, and there is concern of higher-grade dysfunction of her conduction system, which is currently in process of evaluation by Dr. Ayala from cardiology service. 4. Diabetes mellitus, chronic. 5. Hypertension. 6. Dyslipidemia. 7. History of stroke. 8. Reported new onset of left upper extremity weakness and paresthesias. It is not entirely clear to me how much of this is really new versus old. I am not convinced how much of her history is reliable at this point. PLAN: Will continue her usual medications. Will allow her to have a carbohydrate-controlled diet today. It looks like her rhythm will require intervention tomorrow. She will need to be kept nothing by mouth after midnight for procedure. Because of the reported new onset of weakness now 3 days old, we will go ahead and request MRI of her brain and MRA of her brain artery system and carotid ultrasound. Continue cardiac monitoring for the rhythm problem, as noted.
[2019-02-09] MEDS: TOPIRAMATE (TopAMAX) 100 MG TAB PO SCH (21:20)
[2019-02-10 04:00] VITALS: BP 115/70
[2019-02-10] MEDS: SLF 3 ML SYR IV SCH ×3 (05:09→20:19)
[2019-02-10 06:03] LABS: BASO # 0.1 10^3/uL (0.0-0.2); BASO % 0.6 % (0.0-1.0); EOS # 0.5 10^3/uL (0.0-0.5); EOS % 6.4 % (0.0-3.0); HEMATOCRIT 39.4 % (36.0-47.0); HEMOGLOBIN 12.2 g/dl (12.0-15.5); LYMPH # 2.3 10^3/uL (1.5-5.0); LYMPH % 27.7 % (24.0-44.0); MEAN CORPUSCULAR HEMOGLOBIN 27.7 pg (27.0-33.0); MEAN CORPUSCULAR VOLUME 89.5 fl (80.0-96.0); MONO # 0.6 10^3/uL (0.0-0.8); NEUTROPHILS # 4.7 10^3/uL (1.5-8.5); NEUTROPHILS % 57.6 % (36.0-66.0); PLATELET COUNT, AUTOMATED 214 10^3/uL (150-450); WHITE BLOOD COUNT 8.2 10^3/uL (4.0-10.0)
[2019-02-10 06:25] LABS: CALCIUM LEVEL 8.6 MG/DL (8.5-10.1); CREATININE FOR GFR 1.57 MG/DL (0.55-1.30); GLOMERULAR FILTRATION RATE 36.5 (>51); POTASSIUM SERUM 3.8 MEQ/L (3.5-5.1)
--- NOTE | 2019-02-10 07:08 | REP ---
Duplex carotid sonography: History: History of TIA and recent CVA. Left upper extremity weakness. Comparison study July 18, 2013. Sonographic findings: Antegrade flow was observed in both vertebral arteries. Right carotid: The right common carotid artery is unremarkable. There is mild soft plaquing in the bulb and proximal ICA. No evidence of significant stenosis. Color flow and spectral Doppler interrogation are unremarkable. Velocity chart right carotid: Right CCA PSV 84 cm/s Right ICA PSV 54 EDV 22 Right ECA PSV 73 Right ICA/CCA ratio normal 0.6. Impression: Less than 50% category narrowing in the left ICA by Doppler velocity criteria. Left carotid: Left common carotid artery shows minimal diffuse intimal thickening. There is minimal soft plaquing in the bulb on two-dimensional scanning. Color flow and spectral Doppler interrogation are unremarkable on the left. Velocity chart left carotid: Left CCA PSV 101 cm/s Left ICA PSV 73 EDV 40 Left ECA PSV 79 Left ICA/CCA ratio normal 0.7. Impression: Less than 50% category narrowing in the left ICA by Doppler velocity criteria. Doppler velocities are essentially unchanged from 2014 prior study. Electronically Signed by Doug Shane MD 02/10/2019 08:28 A
[2019-02-10 08:06] VITALS: BP 114/53
[2019-02-10] MEDS: FLUTICASONE PROP 0.05% NASAL SPRAY 16 GM (FLONASE) SCH ×2 (08:30→20:18)
[2019-02-10] MEDS: LEVEMIR (INSULIN DETEMIR) 1 UNITS/0.01ML SC SCH ×2 (08:31→20:18)
[2019-02-10] MEDS: FENOFIBRATE 48 MG TAB (TRICOR) PO SCH (08:31)
[2019-02-10] MEDS: HumaLOG INSULIN (NovoLOG) PER UNIT SC SCH ×4 (08:31→20:11)
[2019-02-10] MEDS: CETIRIZINE (ZyrTEC) 10 MG TAB PO SCH (08:31)
[2019-02-10] MEDS: GABAPENTIN 100 MG CAP PO SCH ×2 (08:32→20:19)
[2019-02-10] MEDS: hydroCHLOROthiazide 25 MG TAB PO SCH (08:32)
[2019-02-10] MEDS: PRAVASTATIN 20 MG TAB PO SCH (08:32)
[2019-02-10] MEDS: VENLAFAXINE **XR** 75MG CAPSULE PO SCH (08:32)
[2019-02-10] MEDS: ASPIRIN 81 MG ENTERIC TAB PO SCH (08:32)
[2019-02-10] MEDS: MAGNESIUM OXIDE 400 MG TAB (MAG-OX) PO SCH (08:32)
--- NOTE | 2019-02-10 11:07 | IPN ---
DATE: 02/10/2019 Mrs. Spears, unfortunately, continues to be about the same. She has episodes of second-degree atrioventricular (AV) block frequently with 2:1 conduction that is quite symptomatic with sensation of dizziness. No long pauses and her average heart rate is typically around 60-70. She has no other complaints. Vital signs: Blood pressure 114/53, heart rate as above, she is afebrile, saturation 94% on room air. Weight is 107.4 kg. She alert and oriented, appropriate. Lungs are clear. Heart: Exam reveals regular rhythm with frequent episodes of irregularity as above. Abdomen: Soft. No edema. Neurologically she is intact. LABORATORY: CBC is normal. Basic metabolic panel is essentially normal with the exception of a slightly worsened renal function, creatinine is 1.6 and glucose 204 ASSESSMENT/PLAN: Mrs. Spears is a 53-year-old female who has a multitude of risk factors for coronary artery disease and remote history of CVA, who presented with dizziness and bradycardia, was found to be in sinus rhythm with variable degree of AV block. I initially was hopeful that it would get better with stopping atenolol, but unfortunately, so far we have not seen any improvement, and she has been off the medication for more than 48 hours. At this point, I believe it is appropriate to proceed with pacemaker placement. I spoke with Dr. Schmitz and unfortunately, because of the busy schedule in the operating room (OR), and the fact that this is not a true emergency, the case will be postponed for tomorrow. I will talk about this with the patient. She previously agreed to have the pacemaker placed.
[2019-02-10] MEDS: amLODIPine 10 MG TAB PO SCH (11:11)
[2019-02-10 12:00] VITALS: BP 123/68
[2019-02-10] MEDS: ACETAMINOPHEN TAB 650MG DOSE (2X325MG) PO PRN (13:03)
[2019-02-10 16:00] VITALS: BP 126/61
[2019-02-10] MEDS: DICLOFENAC EPOLAMINE 1.3 % PATCH TOP SCH (18:23)
[2019-02-10 20:00] VITALS: BP 134/73
--- NOTE | 2019-02-10 20:06 | IPN ---
DATE: 02/10/2019 SUBJECTIVE: The patient has no chest pain, dyspnea or palpitations but feels woozy when she is attempting to get up and walk around. Nurses are observing pulses in the 50s with exertion but we have documented in the record pulses of 77 multiple times a day. This morning when I examined her, her pulse is in the 40s, 44-48, she is at rest. She has an irregular rhythm. Monitor shows what looks to be a Wenckebach pattern. With exertion nurses observed pulses rising into the 50s with continued symptoms of lightheadedness. It has been now more than 2 days since her last atenolol dose, so it seems likely in the opinion of Dr. Ayala that she will need to move forward with a pacemaker and he will arrange to contact Dr. Schmitz today. EXAMINATION: Blood pressure 114/53, respiratory rate 16-18. She has no fever, 97.8, pulse 49, room air saturation 94%. LABORATORY: Hemoglobin is satisfactory at 12.2. Chemistries: Creatinine 1.57 and 1.34 yesterday. ASSESSMENT: Symptomatic bradyarrhythmia, likely candidate for pacemaking device. History of stroke right basal ganglion according to imaging studies performed yesterday, no new changes identified. She has been on lisinopril for blood pressure control but her creatinine is high enough that it may be prudent to reduce or discontinue this agent and her pressures are somewhat low anyway while in-house, therefore we will temporarily discontinue lisinopril. She has right hip pain consistent with trochanteric bursitis and findings include tenderness over the right greater trochanter and pain with internal rotation of the right hip, some discomfort with hip flexion. This problem may benefit from a topical diclofenac application if available in the pharmacy here. She has been referred to the pain clinic for this problem. Suspect right trochanteric bursitis and to consider topical diclofenac. She will be nothing by mouth until after the procedure. Therefore morning insulin will need to be held. MARYLOU
[2019-02-10] MEDS: TOPIRAMATE (TopAMAX) 100 MG TAB PO SCH (20:19)
[2019-02-10 23:59] VITALS: BP 130/62
[2019-02-11 04:00] VITALS: BP 116/58
[2019-02-11 06:29] LABS: BASO % 0.6 % (0.0-1.0); EOS # 0.5 10^3/uL (0.0-0.5); EOS % 7.2 % (0.0-3.0); LYMPH # 1.9 10^3/uL (1.5-5.0); MEAN CORPUSCULAR HEMOGLOBIN 28.4 pg (27.0-33.0); MEAN CORPUSCULAR HGB CONC 31.4 g/dl (32.0-36.5); MEAN CORPUSCULAR VOLUME 90.4 fl (80.0-96.0); MONO # 0.5 10^3/uL (0.0-0.8); MONO % 7.2 % (0.0-5.0); NEUTROPHILS # 3.7 10^3/uL (1.5-8.5); PLATELET COUNT, AUTOMATED 184 10^3/uL (150-450); RED BLOOD COUNT 3.87 10^6/uL (4.00-5.40); WHITE BLOOD COUNT 6.7 10^3/uL (4.0-10.0)
[2019-02-11] MEDS: DICLOFENAC EPOLAMINE 1.3 % PATCH TOP SCH ×2 (06:29→18:57)
[2019-02-11] MEDS: SLF 3 ML SYR IV SCH ×3 (06:30→21:55)
[2019-02-11] MEDS: LR 1,000 ML IV SCH (06:45)
[2019-02-11 06:54] LABS: CALCIUM LEVEL 8.5 MG/DL (8.5-10.1); CREATININE FOR GFR 1.72 MG/DL (0.55-1.30); GLOMERULAR FILTRATION RATE 32.9 (>51); POTASSIUM SERUM 3.7 MEQ/L (3.5-5.1)
[2019-02-11] MEDS: HumaLOG INSULIN (NovoLOG) PER UNIT SC SCH ×4 (07:30→21:53)
[2019-02-11 08:00] VITALS: BP 131/74
--- NOTE | 2019-02-11 08:02 | IPN ---
DATE: 02/11/2019 Mrs. Spears remains about the same. She still complains about feeling dizzy at times. She also remains in second-degree AV block with variable AV conduction but at night time she has predominantly 2:1 conduction with underlying mildly wide QRS complex blood pressure 116/58, heart rate from 50s to 60s. She is afebrile. Saturation 96% on room air. Weight is recorded at 109 kg. JVP is not up. Lungs are clear. Heart: Exam reveals regular rhythm during my exam quite bradycardic so I suspect 2:1 conduction. No gallop was appreciated. Abdomen is soft. No edema. Neurologically she is intact other than her chronic mild facial droop and slight expressive aphasia. LABORATORY: CBC is normal with the exception of mild anemia with hemoglobin 11, hematocrit 35, basic metabolic panel sodium 139, potassium 3.7, BUN 27, creatinine 1.74 and glucose 208. ASSESSMENT/PLAN: Mrs. Spears is a 53-year-old female who has a history of hypertension, dyslipidemia, obesity and diabetes. Admitted with underlying renal insufficiency stage III. She presented with a sensation of dizziness about 2 weeks duration and was found to be in second-degree AV block with variable AV conduction. She was outpatient basis on 50 mg of atenolol and we held the medication but even without it. She continues to have AV block and consequently I believe she clearly needs a pacemaker placed. Tentatively scheduled to have the procedure this afternoon. Otherwise she has been stable with the exception of slow this office slowly worsening renal insufficiency. I believe that it is most likely due to reduced cardiac output in setting of bradycardia. I do expect that once the pacemaker is placed at this will quickly improve. Hopefully she will be able to go home tomorrow.
[2019-02-11] MEDS: LEVEMIR (INSULIN DETEMIR) 1 UNITS/0.01ML SC SCH ×3 (09:00→21:52)
[2019-02-11] MEDS: ASPIRIN 81 MG ENTERIC TAB PO SCH (09:00)
[2019-02-11] MEDS: amLODIPine 10 MG TAB PO SCH (09:00)
[2019-02-11] MEDS: MAGNESIUM OXIDE 400 MG TAB (MAG-OX) PO SCH (09:11)
[2019-02-11] MEDS: PRAVASTATIN 20 MG TAB PO SCH (09:11)
[2019-02-11] MEDS: VENLAFAXINE **XR** 75MG CAPSULE PO SCH (09:12)
[2019-02-11] MEDS: FLUTICASONE PROP 0.05% NASAL SPRAY 16 GM (FLONASE) SCH ×2 (09:12→21:55)
[2019-02-11] MEDS: FENOFIBRATE 48 MG TAB (TRICOR) PO SCH (09:12)
[2019-02-11] MEDS: GABAPENTIN 100 MG CAP PO SCH ×2 (09:12→21:52)
[2019-02-11] MEDS: hydroCHLOROthiazide 25 MG TAB PO SCH (09:12)
[2019-02-11] MEDS: CETIRIZINE (ZyrTEC) 10 MG TAB PO SCH (09:12)
[2019-02-11] MEDS ORDERED: LR 1,000 ML IV SCH ×2 (09:15→18:00)
--- NOTE | 2019-02-11 09:22 | IPNPDOC ---
Subjective Date Seen The patient was seen on 02/11/19. Subjective Chief Complaint/HPI bradycardia Events since last encounter Planned pacemaker placement today. patient denies c/o. Constitutional: Denies: Chills, Fever, Night Sweats Pulmonary: Denies: Dyspnea, Cough Cardiovascular: Denies: Chest Pain, Palpitations, Orthopnea, Paroxysmal Noc. D yspnea, Lt Headedness Gastrointestinal: Denies: Nausea, Vomiting, Abdominal Pain, Diarrhea, Constipation Genitourinary: Denies: Dysuria, Frequency, Incontinence, Retention Objective Physical Examination General Exam: Positive: Alert, Cooperative, No Acute Distress Eye Exam: Positive: PERRLA, Conjunctiva & lids normal, EOMI; Negative: Sclera icteric ENT Exam: Positive: Atraumatic, Mucous membr. moist/pink, Pharynx Normal Neck Exam: Positive: Supple; Negative: JVD, thyromegaly Chest Exam: Positive: Clear to auscultation, Normal air movement, Diminished Heart Exam: Positive: Bradycardic, Regular Rhythm, Normal S1, Normal S2; Negative: Murmurs, Rubs Telemetry: Positive: Sinus, Bradycardia Abdomen Exam: Positive: Normal bowel sounds, Soft; Negative: Tenderness, Hepatospenomegaly Extremity Exam: Positive: Edema (trace), Normal pulses; Negative: Clubbing, Cyanosis Skin Exam: Positive: Nl turgor and temperature; Negative: Breakdown, Lesion Neuro Exam: Positive: Normal Speech, Strength at 5/5 X4 ext Assessment /Plan Problems (1) AV block, Mobitz II Problem Text: plannedn pacemaker today, see cardio notes (2) Major depressive disorder Status: Chronic (3) CKD (chronic kidney disease) stage 3, GFR 30-59 ml/min Status: Chronic Problem Text: Cr elevated at 1.7 today, baseline1.2-1.4. LR at 75 cc per hour. (4) Chronic back pain Status: Chronic Response to Treatment: Stable (5) Diabetes Status: Chronic Response to Treatment: Stable Problem Text: Levemir on hold this am due to pre-op NPO status Plan/VTE VTE Prophylaxis Ordered?: Yes VS, I&O, 24H, Fishbone Vital Signs/I&O Vital Signs Date Time Temp Pulse Resp B/P (MAP) Pulse Ox O2 Delivery O2 Flow Rate FiO2 02/11/19 08:00 97.2 73 17 131/74 (93) 98 Room Air I&O- Last 24 Hours up to 6 AM 02/11/19 06:00 Intake Total 1020 ml Output Total 1650 ml Balance -630 ml Laboratory Data 24H LABS Laboratory Tests 2 02/10/19 11:39: Bedside Glucose (Misc Panel) 195H 02/10/19 16:58: Bedside Glucose (Misc Panel) 219H 02/10/19 20:06: Bedside Glucose (Misc Panel) 236H 02/11/19 00:04: Magnesium Level 2.1 02/11/19 05:38: Immature Granulocyte % (Auto) 1.0, Neutrophils (%) (Auto) 56.0, Lymphocytes (%) (Auto) 28.0, Monocytes (%) (Auto) 7.2H, Eosinophils (%) (Auto) 7.2H, Basophils (%) (Auto) 0.6, Neutrophils # (Auto) 3.7, Lymphocytes # (Auto) 1.9, Monocytes # (Auto) 0.5, Eosinophils # (Auto) 0.5, Basophils # (Auto) 0.0, Nucleated Red Blood Cells % (auto) 0.0, Anion Gap 10, Glomerular Filtration Rate 32.9L, Calcium Level 8.5 CBC/BMP Laboratory Tests 02/11/19 05:38 Nanette Gloria NANOFABRICATION SPECIALIST Feb 11, 2019 09:22
[2019-02-11 12:00] VITALS: BP 145/75
[2019-02-11] MEDS ORDERED: ceFAZolin SOD 2 GM in IV 1 EA IV ONE (14:00)
[2019-02-11] MEDS ORDERED: ISOVUE-300 61% 50ML VIAL (Q9967) As Ordered ONE (15:30)
[2019-02-11] MEDS ORDERED: LIDOCAINE 1% SDV INJ 30 ML VIAL As Ordered ONE (15:30)
[2019-02-11] MEDS ORDERED: BACITRACIN PWD 50,000 UNITS VIAL As Ordered ONE (15:30)
[2019-02-11] MEDS ORDERED: AMIODARONE HCL 360 MG/200 ML PREMIXED BAG (NEXTERONE) As Ordered ONE (15:30)
[2019-02-11] MEDS ORDERED: CLINDAMYCIN 600 MG/50 ML PREMIX BAG As Ordered ONE (15:47)
[2019-02-11] MEDS ORDERED: PROPOFOL 200 MG/20 ML VIAL As Ordered ONE ×2 (15:50→16:56)
[2019-02-11] MEDS ORDERED: LIDOCAINE 2% INJ 100 MG/5 ML SDV (FOR ANES.) As Ordered ONE (15:50)
[2019-02-11] MEDS ORDERED: fentaNYL 100 MCG/2 ML INJECTION (J3010) As Ordered ONE (15:51)
[2019-02-11] MEDS ORDERED: MIDAZOLAM INJ 2 MG/2 ML VIAL (J2250) As Ordered ONE (15:51)
[2019-02-11] MEDS ORDERED: ONDANSETRON 4MG/2ML VIAL (J2405) As Ordered ONE (17:06)
[2019-02-11] MEDS ORDERED: ACETAMINOPHEN 1000MG 100ML IV BTL (OFIRMEV) (J0131 PER 10MG) As Ordered ONE (17:06)
[2019-02-11] MEDS ORDERED: DOCUSATE SODIUM 100 MG CAP PO PRN (17:30)
[2019-02-11] MEDS ORDERED: ALBUTEROL 90 MCG/ACT 8GM HFA INHALER INH PRN (17:30)
[2019-02-11] MEDS ORDERED: ALBUTEROL SULFATE 2.5 MG/0.5 ML INH NEB SOLN INH PRN (17:30)
[2019-02-11] MEDS ORDERED: PERCOCET 5MG/325MG TAB PO PRN (18:00)
[2019-02-11] MEDS ORDERED: HYDROMORPHONE HCL 0.5 MG/ 0.5 ML SYRINGE (J1170 PER 1) IV PRN (18:00)
[2019-02-11] MEDS ORDERED: fentaNYL 100 MCG/2 ML INJECTION (J3010) IV PRN (18:00)
[2019-02-11] MEDS ORDERED: ONDANSETRON 4MG/2ML VIAL (J2405) IV PRN (18:00)
[2019-02-11 18:30] VITALS: BP 152/72
--- NOTE | 2019-02-11 18:35 | REP ---
REASON FOR EXAM: Status-post pacemaker insertion. COMPARISON EXAM: 02/08/2019. The technique utilized in obtaining the radiograph has magnified the cardiac silhouette and accentuated the interstitial markings. Since the last examination a dual chamber bipolar pacemaker device has been placed. The leads are contiguous and appropriate. There is a curvilinear opacity in the right and left upper lobe regions. The lung canas are otherwise clear and stable. The heart is enlarged and magnified by technique. There is no change in the osseous structures. IMPRESSION:1. Status-post pacemaker device placement as described above. 2. Cardiomegaly accentuated by technique. 3. Discoid subsegmental atelectatic change is suspected in the upper lobe bilaterally. Electronically Signed by Akira Walker DO 02/11/2019 06:59 P
[2019-02-11 18:45] VITALS: BP 145/72
[2019-02-11 20:00] VITALS: BP 130/67
[2019-02-11] MEDS: TOPIRAMATE (TopAMAX) 100 MG TAB PO SCH (21:52)
[2019-02-11] MEDS: ceFAZolin SOD 1 GM in D5W MINI-BAG PLUS 50 ML IV SCH (21:54)
[2019-02-11] MEDS: ACETAMINOPHEN TAB 650MG DOSE (2X325MG) PO PRN (21:54)
[2019-02-12] VITALS: BP 147/72
[2019-02-12] MEDS: LR 1,000 ML IV SCH (01:30)
[2019-02-12 04:00] VITALS: BP 132/74
[2019-02-12] MEDS: ACETAMINOPHEN TAB 650MG DOSE (2X325MG) PO PRN ×3 (04:11→20:24)
[2019-02-12] MEDS: DICLOFENAC EPOLAMINE 1.3 % PATCH TOP SCH ×2 (05:18→18:29)
[2019-02-12] MEDS: ceFAZolin SOD 1 GM in D5W MINI-BAG PLUS 50 ML IV SCH ×3 (05:18→20:23)
[2019-02-12] MEDS: SLF 3 ML SYR IV SCH ×3 (05:19→20:26)
[2019-02-12 05:55] LABS: BASO % 0.7 % (0.0-1.0); EOS # 0.5 10^3/uL (0.0-0.5); EOS % 8.2 % (0.0-3.0); HEMOGLOBIN 10.8 g/dl (12.0-15.5); LYMPH # 1.3 10^3/uL (1.5-5.0); LYMPH % 23.2 % (24.0-44.0); MEAN CORPUSCULAR HEMOGLOBIN 28.3 pg (27.0-33.0); MEAN CORPUSCULAR HGB CONC 31.8 g/dl (32.0-36.5); MEAN CORPUSCULAR VOLUME 89.2 fl (80.0-96.0); MONO # 0.4 10^3/uL (0.0-0.8); MONO % 7.1 % (0.0-5.0); NEUTROPHILS # 3.3 10^3/uL (1.5-8.5); NEUTROPHILS % 59.9 % (36.0-66.0); PLATELET COUNT, AUTOMATED 177 10^3/uL (150-450); RED BLOOD COUNT 3.81 10^6/uL (4.00-5.40); WHITE BLOOD COUNT 5.5 10^3/uL (4.0-10.0)
[2019-02-12 06:20] LABS: CALCIUM LEVEL 8.9 MG/DL (8.5-10.1); CREATININE FOR GFR 1.62 MG/DL (0.55-1.30); GLOMERULAR FILTRATION RATE 35.3 (>51); POTASSIUM SERUM 3.7 MEQ/L (3.5-5.1)
--- NOTE | 2019-02-12 06:27 | RO ---
DATE OF PROCEDURE: 02/11/2019 PROCEDURE: Implantation of permanent dual-chamber pacemaker. IMPLANTING CONSERVATION OFFICER: Dr. Woodrow Schmitz ANESTHESIOLOGIST: Dr. Lopez PREOPERATIVE DIAGNOSES: 1. Intermittent high-grade AV block. 2. 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 POSTOPERATIVE DIAGNOSES: 1. Intermittent high-grade AV block. 2. 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 TYPE OF ANESTHESIA: Monitored local anesthesia. CLINICAL SUMMARY: This 53-year-old woman, resident of [place], [place], is known to Dr. Ayala's cardiology service with multiple medical problems including morbid obesity, hypertension, heart failure (LV diastolic dysfunction) and abnormal EKG with left anterior hemiblock and right bundle branch block. Despite multiple coronary risk factors, a pharmacological PET scan showed normal left ventricle ejection fraction of 70% with no evidence of inducible ischemia. Echocardiogram September 2018 showed left ventricle hypertrophy with preserved systolic function, LV diastolic dysfunction and no significant valvular disease. She presented to our emergency room with a 3-week history of weakness and near syncope with initial EKG showing underlying sinus rhythm at 62 beats per minute, left atrial conduction disturbance, second-degree AV block Mobitz type I, left anterior hemiblock, right bundle branch block and left ventricular hypertrophy with primary repolarization abnormalities. She had been on atenolol and Plavix which were placed on hold and she was admitted to a telemetry unit on restricted activity and close observation. monitoring coordinator showed persistent high-grade AV block with heart rates as low as 30s despite withholding her beta lane for 72 hours. She was referred to our cardiology pacing service for permanent dual-chamber pacemaker implant. DESCRIPTION OF PROCEDURE: With the patient in the fasting state having signed informed consent and having received Ancef 2 grams IV premedication, she was taken to the operating theater. Numerous skin electrodes were applied to monitor her electrocardiographically continuously. Her left subclavian region was prepped and draped in the usual fashion and the skin was infiltrated with 1% Xylocaine. Her left subclavian vein was catheterized using the micropuncture technique and a 5 cm linear incision was made several centimeters below and parallel to her left clavicle. Dissection was carried down to the level of her pectoralis fascia and a pocket was fashioned below the level of the incision line. Two bipolar screw-in active fixation steroid eluding pacing leads were then positioned to the right ventricular outflow tract and high right atrial appendage under fluoroscopic electrocardiographic control. The right ventricular lead ([employer], model number [id number], serial number [id number]), measurements were: stimulation threshold 0.4 V/0.4 ms/impedance 631 ohms. The capital R wave amplitude measured 9.6 mV. The atrial lead ([employer], model number [id number], serial number [id number]) measurements were: stimulation threshold 0.6 V/0.4 ms/impedance 363 ohms. The P wave amplitude measured 5.5 mV. These leads were secured in position with sleeves sutured at their insertion site. They were then connected to a dual-chamber pulse generator that was MRI compatible ([employer] TEAM INTERVAL, model number [id number], serial number [id number]) and appropriate DDD pacing was documented. The pulse generator was placed in the pocket and secured in position with a suture through the right upper corner of the epoxy header. The subcutaneous tissues were approximated using a running chromic suture and the skin was closed using ena. Dry dressing was applied and the patient was returned to recovery room in good condition. No apparent complication. The patient was on Plavix and a prominent body habitus with BMI 46.9 leading to more oozing with estimated blood loss approximately 20 ml. A postoperative portable upright chest x-ray confirmed appropriate lead position with no pneumothorax. Her EKG showed underlying sinus rhythm at 72 BPM with appropriate atrial sensing and tracking with consistent ventricular pacing having a rightward axis in keeping with a right ventricle outflow tract stimulation and left bundle branch block pattern. Our plan is to monitor her on telemetry overnight and she will receive an additional three doses of Ancef 1 gram IV every 8 hours. Followup PA and left lateral chest x-ray and EKG will be obtained in the morning. We anticipate she will be able to be discharged tomorrow afternoon.
[2019-02-12] MEDS: HumaLOG INSULIN (NovoLOG) PER UNIT SC SCH ×4 (07:30→20:24)
--- NOTE | 2019-02-12 07:53 | IPNPDOC ---
Subjective Date Seen The patient was seen on 02/12/19. Subjective Chief Complaint/HPI AV block Events since last encounter S/p pacemaker placement. patient lethargic from anesthesia this am. Receiving Ancef IV q 8 hrs x 3 doses per cardio recommendations. Tolerating po well. Constitutional: Denies: Chills, Fever, Night Sweats Skin: Denies: Rash, Lesions, Breakdown Pulmonary: Denies: Dyspnea, Cough Cardiovascular: Denies: Chest Pain, Palpitations, Orthopnea, Paroxysmal Noc. Dyspnea, Lt Headedness Objective Physical Examination General Exam: Positive: Alert, Cooperative, No Acute Distress Eye Exam: Positive: PERRLA, Conjunctiva & lids normal, EOMI; Negative: Sclera icteric ENT Exam: Positive: Atraumatic, Mucous membr. moist/pink, Pharynx Normal Neck Exam: Positive: Supple; Negative: JVD, thyromegaly Chest Exam: Positive: Clear to auscultation, Normal air movement, Diminished Heart Exam: Positive: Bradycardic, Regular Rhythm, Normal S1, Normal S2; Negative: Murmurs, Rubs Telemetry: Positive: Sinus Abdomen Exam: Positive: Normal bowel sounds, Soft; Negative: Tenderness, Hepatospenomegaly Extremity Exam: Positive: Edema (trace), Normal pulses; Negative: Clubbing, Cyanosis Skin Exam: Positive: Nl turgor and temperature; Negative: Breakdown, Lesion Neuro Exam: Positive: Normal Speech, Strength at 5/5 X4 ext Assessment /Plan Problems (1) AV block, Mobitz II Problem Text: s/p pacemaker placement 02/11/2019. Anticipate DC home today/tomorrow./ pending BMP results, EKG and post-op recovery. . (2) Major depressive disorder Status: Chronic (3) CKD (chronic kidney disease) stage 3, GFR 30-59 ml/min Status: Chronic Problem Text: at baseline cr 1.6 02/12 taking adequate po, LR held (4) Diabetes Status: Chronic Response to Treatment: Stable Problem Text: HD: det 20 BID c ins aspart AC TID per SS, lir 1.8 q7D 02/12 diet advanced and HD det restarted given BGs mid-high 200s (5) Physical deconditioning Status: Acute Response to Treatment: Improving Problem Text: 02/12 still feels "weak"-PT consulted Plan/VTE VTE Prophylaxis Ordered?: Yes VS, I&O, 24H, Fishbone Vital Signs/I&O Vital Signs Date Time Temp Pulse Resp B/P (MAP) Pulse Ox O2 Delivery O2 Flow Rate FiO2 02/12/19 04:00 98.2 66 18 132/74 (93) 91 Room Air 02/11/19 17:40 10 I&O- Last 24 Hours up to 6 AM 02/12/19 06:00 Intake Total 1355 ml Output Total 1350 ml Balance 5 ml Laboratory Data 24H LABS Laboratory Tests 2 02/11/19 12:50: Bedside Glucose (Misc Panel) 170H 02/11/19 17:41: Bedside Glucose (Misc Panel) 142H 02/11/19 21:28: Bedside Glucose (Misc Panel) 297H 02/12/19 05:37: Immature Granulocyte % (Auto) 0.9, Neutrophils (%) (Auto) 59.9, Lymphocytes (%) (Auto) 23.2L, Monocytes (%) (Auto) 7.1H, Eosinophils (%) (Auto) 8.2H, Basophils (%) (Auto) 0.7, Neutrophils # (Auto) 3.3, Lymphocytes # (Auto) 1.3L, Monocytes # (Auto) 0.4, Eosinophils # (Auto) 0.5, Basophils # (Auto) 0.0, Nucleated Red Blood Cells % (auto) 0.0, Anion Gap 6L, Glomerular Filtration Rate 35.3L, Calcium Level 8.9 CBC/BMP Laboratory Tests 02/12/19 05:37 Nanette Gloria Feb 12, 2019 07:53 Poncho Villarreal M.D. Feb 12, 2019 18:15
[2019-02-12 08:00] VITALS: BP 142/72
[2019-02-12] MEDS: FENOFIBRATE 48 MG TAB (TRICOR) PO SCH (09:00)
[2019-02-12] MEDS: FLUTICASONE PROP 0.05% NASAL SPRAY 16 GM (FLONASE) SCH ×2 (09:00→20:23)
--- NOTE | 2019-02-12 09:41 | IPN ---
DATE: 02/12/2019 Mrs. Spears had pacemaker placed by Dr. Schmitz yesterday evening. Apparently, it was a rather challenging procedure, due to her underlying large body habitus but she is feeling well other than mild soreness over her left shoulder has no other complaints. She was able to sleep. She has not had her chest x-ray this morning yet. PHYSICAL EXAMINATION: Vital signs: Blood pressure 132/74, heart rate is in 60s sinus rhythm with ventricular pacing. Saturation is 91% on room air. Fluid balance yesterday was recorded about negative 500. Weight is 109.6 kg. She is alert and oriented and appropriate. Her jugular venous pressure is difficult to garde manager again due to her body habitus. Lungs are clear though with good air movement. I do not appreciate any wheezing, crackles or rhonchi. Heart exam is somewhat limited by a bandage over her pacemaker site but I do not appreciate any distinct murmur or gallop. Abdomen is obese and soft. There is no edema. LABORATORY: Hemoglobin 10.9, hematocrit 34, platelet count 177,000. Basic metabolic panel: Sodium 140, potassium 3.7, BUN 21, creatinine 0.6 and glucose 214. ASSESSMENT/PLAN: Mrs. Spears is a 53-year-old lady who has a history of hypertension, diabetes, dyslipidemia and morbid obesity and a remote history of CVA. She does not have any known coronary artery disease. She presented with AV block of second-degree with variable AV conduction that persisted in spite of discontinuation of atenolol for more than 72 hours. Consequently, pacemaker was placed. If the imaging is normal, she can be discharged home after Dr. Schmitz interrogate the device. I tentatively plan to see her in followup in approximately 3-4 weeks.
[2019-02-12] MEDS: amLODIPine 10 MG TAB PO SCH (09:58)
[2019-02-12] MEDS: ASPIRIN 81 MG ENTERIC TAB PO SCH (09:58)
[2019-02-12] MEDS: PRAVASTATIN 20 MG TAB PO SCH (09:58)
[2019-02-12] MEDS: hydroCHLOROthiazide 25 MG TAB PO SCH (09:59)
[2019-02-12] MEDS: VENLAFAXINE **XR** 75MG CAPSULE PO SCH (09:59)
[2019-02-12] MEDS: GABAPENTIN 100 MG CAP PO SCH ×2 (09:59→20:24)
[2019-02-12] MEDS: CETIRIZINE (ZyrTEC) 10 MG TAB PO SCH (10:00)
[2019-02-12] MEDS: ATENOLOL 50 MG TAB PO SCH (10:00)
[2019-02-12] MEDS: MAGNESIUM OXIDE 400 MG TAB (MAG-OX) PO SCH (10:00)
[2019-02-12] MEDS: LEVEMIR (INSULIN DETEMIR) 1 UNITS/0.01ML SC SCH ×2 (10:01→20:25)
--- NOTE | 2019-02-12 11:09 | REP ---
CHEST X-RAY: Two views. HISTORY: Post pacemaker implant. COMPARISON CHEST X-RAY: February 11, 2019. FINDINGS: Monitoring electrodes overlie the chest. There are surgical clips adjacent to the pacemaker power plant. Heart is mildly enlarged unchanged. The pleural angles are sharp. Pulmonary vasculature is not increased. No pneumothorax is seen. IMPRESSION: Mild cardiomegaly with pacemaker. Otherwise no acute disease. Electronically Signed by Doug Shane MD 02/12/2019 03:33 P
[2019-02-12 12:00] VITALS: BP 134/68
[2019-02-12 14:21] LABS: CREATININE FOR GFR 1.58 MG/DL (0.55-1.30); GLOMERULAR FILTRATION RATE 36.3 (>51); POTASSIUM SERUM 3.7 MEQ/L (3.5-5.1)
[2019-02-12] MEDS ORDERED: ceFAZolin SOD 2 GM in IV 1 EA IV ONE (15:00)
[2019-02-12 16:00] VITALS: BP 146/76
[2019-02-12] MEDS ORDERED: MUPIROCIN 2% OINT 22 GM TUBE TOP ONE (18:00)
[2019-02-12 20:00] VITALS: BP 160/78
[2019-02-12] MEDS: TOPIRAMATE (TopAMAX) 100 MG TAB PO SCH (20:24)
--- NOTE | 2019-02-12 21:39 | ECGEPIP ---
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 AND IT REVEALED MOBITZ 2 SECOND- DEGREE AV BLOCK Electronically Signed on 02-12-2019 21:39:14 EST by Jake Mckeon
--- NOTE | 2019-02-12 21:45 | ECGEPIP ---
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
[2019-02-13] VITALS: BP 130/73
[2019-02-13] MEDS: ACETAMINOPHEN TAB 650MG DOSE (2X325MG) PO PRN (02:56)
[2019-02-13 04:00] VITALS: BP 125/74
[2019-02-13] MEDS: ceFAZolin SOD 1 GM in D5W MINI-BAG PLUS 50 ML IV SCH (05:40)
[2019-02-13] MEDS: SLF 3 ML SYR IV SCH (05:41)
[2019-02-13] MEDS: DICLOFENAC EPOLAMINE 1.3 % PATCH TOP SCH (05:41)
[2019-02-13 06:03] LABS: BASO % 0.4 % (0.0-1.0); EOS # 0.7 10^3/uL (0.0-0.5); EOS % 9.7 % (0.0-3.0); HEMATOCRIT 35.7 % (36.0-47.0); HEMOGLOBIN 11.1 g/dl (12.0-15.5); LYMPH # 1.6 10^3/uL (1.5-5.0); LYMPH % 23.1 % (24.0-44.0); MEAN CORPUSCULAR HEMOGLOBIN 28.1 pg (27.0-33.0); MEAN CORPUSCULAR HGB CONC 31.1 g/dl (32.0-36.5); MEAN CORPUSCULAR VOLUME 90.4 fl (80.0-96.0); MONO # 0.5 10^3/uL (0.0-0.8); MONO % 7.4 % (0.0-5.0); NEUTROPHILS # 4.1 10^3/uL (1.5-8.5); NEUTROPHILS % 58.7 % (36.0-66.0); PLATELET COUNT, AUTOMATED 186 10^3/uL (150-450); RED BLOOD COUNT 3.95 10^6/uL (4.00-5.40)
[2019-02-13 06:26] LABS: CALCIUM LEVEL 8.6 MG/DL (8.5-10.1); CREATININE FOR GFR 1.38 MG/DL (0.55-1.30); GLOMERULAR FILTRATION RATE 42.4 (>51); MAGNESIUM LEVEL 1.8 MG/DL (1.8-2.4); POTASSIUM SERUM 3.8 MEQ/L (3.5-5.1)
--- NOTE | 2019-02-13 07:57 | IPN ---
CARDIOLOGY PACEMAKER SERVICE NOTE DATE OF SERVICE: 02/12/2019 SUBJECTIVE: The patient has been up out of bed, having minimal soreness at the site of her pacemaker. Denies any lightheadedness or faintness on her light level of activity in her room. OBJECTIVE: Pleasant, somewhat simple, obese, middle-aged woman who sat comfortably in a bedside chair. Heart rate 60 beats per minute and regular. Blood pressure 146/76. Respiratory rate 16. Oxygen saturation 97% on room air. Afebrile. Weight 242 pounds. Height 60 inches. Body mass index (BMI) 47.2. No pallor or cyanosis. Normal oral moisture. Trachea midline. Neck veins were not visible with the patient sitting. Increased anterior posterior chest diameter with good chest expansion. Her pacemaker incision has mild erythema and swelling, but no discharge. Her dressing was changed. The adhesive tape unfortunately did denude small areas of skin below the incision line. We will order some Bacitracin ointment topically tonight. PA and left lateral chest x-ray taken earlier today was reviewed personally and again documents cardiomegaly with slightly unfolded thoracic aorta. Proximal pulmonary vasculature appeared to be slightly plump, but no pulmonary venous congestion. Stable pacing lead position with pulse generator left subclavian region. No pneumothorax. 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 IMPRESSION/PLAN: High grade AV block/trifascicular block/dual chamber pacemaker in situ: Her incision appears to be healing well and pacing leads were stable in position. Complete pacemaker interrogation was performed showing excellent intracardiac electrograms and pacing thresholds with anticipated battery voltage for 11 years. At this point, she should be able to be discharged home and will be seen in my office in 7-10 days time for wound check and staple removal. We have requested that she perform only light activities of daily living with her left arm and avoid getting her incision wet until her ena are removed. Should she develop any abnormal erythema, swelling or discharge, we have requested that she contact our office. Subsequent pacemaker and cardiology followup will be with her primary cafeteria server, Dr. Ayala.
[2019-02-13 08:00] VITALS: BP 139/83
[2019-02-13] MEDS: ASPIRIN 81 MG ENTERIC TAB PO SCH (08:04)
[2019-02-13 08:05] VITALS: BP 139/83
[2019-02-13] MEDS: PRAVASTATIN 20 MG TAB PO SCH (08:05)
[2019-02-13] MEDS: amLODIPine 10 MG TAB PO SCH (08:05)
[2019-02-13] MEDS: FENOFIBRATE 48 MG TAB (TRICOR) PO SCH (08:05)
[2019-02-13] MEDS: hydroCHLOROthiazide 25 MG TAB PO SCH (08:05)
[2019-02-13] MEDS: VENLAFAXINE **XR** 75MG CAPSULE PO SCH (08:05)
[2019-02-13] MEDS: GABAPENTIN 100 MG CAP PO SCH (08:05)
[2019-02-13] MEDS: MAGNESIUM OXIDE 400 MG TAB (MAG-OX) PO SCH (08:06)
[2019-02-13] MEDS: LEVEMIR (INSULIN DETEMIR) 1 UNITS/0.01ML SC SCH (08:06)
[2019-02-13] MEDS: ATENOLOL 50 MG TAB PO SCH (08:06)
[2019-02-13] MEDS: CETIRIZINE (ZyrTEC) 10 MG TAB PO SCH (08:06)
[2019-02-13] MEDS: HumaLOG INSULIN (NovoLOG) PER UNIT SC SCH ×2 (08:07→12:57)
[2019-02-13] MEDS: FLUTICASONE PROP 0.05% NASAL SPRAY 16 GM (FLONASE) SCH (08:07)
[2019-02-13] MEDS ORDERED: VENL75CA47 PO (11:39)
--- NOTE | 2019-02-13 17:46 | IPN ---
DATE: 02/13/2019 CARDIOLOGY PROGRESS NOTE SUBJECTIVE: The patient has been up in her room and has been feeling well. No further shortness of breath or weakness. She is looking forward to her tentative laparoscopic hysterectomy tomorrow morning. Has remained free of any further chest discomfort. OBJECTIVE: Morbidly obese middle-aged woman, lying comfortably with the head of bed elevated 30 degrees. Heart rate was 80 beats per minute and regular, blood pressure 139/83, respiratory rate 18, oxygen saturation 98% on room air, and she has been afebrile. Blood work: Hemoglobin of 10.5 with normal white blood cell count and platelet count. Hemoglobin marginally less than yesterday. Electrolytes were in balance with BUN 11, creatinine 0.76, fasting glucose 88. 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 No evidence of atrial tachyarrhythmia. IMPRESSION/PLAN: 1. Preoperative cardiac examination: As previously mentioned, we anticipate she is in good form for her procedure tomorrow. At this point, her chief potential perioperative problem would be related to her obesity and obstructive sleep apnea. No special measures, again, would be deemed necessary from the cardiac standpoint. 2. Paroxysmal atrial fibrillation/flutter: As mentioned, I believe her EKG from 02/09/2019 was misinterpreted and was actually artifact. As anticipated, she remains in a regular sinus rhythm on her current digoxin and diltiazem. Is off her oral anticoagulation in anticipation for her surgery tomorrow. Hopefully her anticoagulation will be able to be resumed 24 hours postoperatively. 3. Chest pain: No further discomfort. As previously mentioned, she has normal coronary arteries, so I suspect this symptom was related to her gastrointestinal (GI) problems. 4. Heart failure (diastolic dysfunction): Remains compensated and comfortable without dyspnea on her present level of activity. Chemistry confirms electrolyte balance and normal renal function. 5. Hypertensive heart disease (benign with heart failure): Blood pressure remains well controlled on combination diltiazem, lisinopril, and low-dose Lasix. 6. Body mass index (BMI) 41/obstructive sleep apnea: I believe she continues to do well with her dietary measures and weight loss at home. We will continue to follow her with you while she is in hospital and appreciate the opportunity to participate in her care.
[2019-02-13] MEDS ORDERED: ZONISAMIDE 25 MG PO SCH (21:00)
== END 2019-02-13 14:48 | disposition home or self-care (01) | DRG 243 ==
LOC: M ED 09:46 → M ED INP 11:45 → M PCU 15:29
PROVIDERS: ADMIT Internal Medicine Nephrology; ATTEND Family Medicine
PROC: 02HK3JZ Insertion of Pacemaker Lead into Right Ventricle, Percutaneous Approach (ICD-10-PCS; 2019-02-11)
PROC: 02H63JZ Insertion of Pacemaker Lead into Right Atrium, Percutaneous Approach (ICD-10-PCS; 2019-02-11)
PROC: 0JH606Z Insertion of Pacemaker, Dual Chamber into Chest Subcutaneous Tissue and Fascia, Open Approach (ICD-10-PCS; principal; 2019-02-11 15:00)
DX: I45.3 Trifascicular block (principal); Z68.41 Body mass index [BMI] 40.0-44.9, adult; I13.0 Hypertensive heart and chronic kidney disease with heart failure and stage 1 through stage 4 chronic kidney disease, or unspecified chronic kidney disease; I50.9 Heart failure, unspecified; E66.01 Morbid (severe) obesity due to excess calories; E11.40 Type 2 diabetes mellitus with diabetic neuropathy, unspecified; E78.5 Hyperlipidemia, unspecified; J45.909 Unspecified asthma, uncomplicated; Z79.899 Other long term (current) drug therapy; Z79.82 Long term (current) use of aspirin; Z79.4 Long term (current) use of insulin; Z88.8 Allergy status to other drugs, medicaments and biological substances; N18.3 Chronic kidney disease, stage 3 (moderate); Z86.73 Personal history of transient ischemic attack (TIA), and cerebral infarction without residual deficits; F31.9 Bipolar disorder, unspecified; M19.90 Unspecified osteoarthritis, unspecified site; Z87.891 Personal history of nicotine dependence; I48.0 Paroxysmal atrial fibrillation; I48.92 Unspecified atrial flutter; G47.33 Obstructive sleep apnea (adult) (pediatric)

== ENCOUNTER → 2019-02-08 | Outpatient (CLI) | payer OTHER, MEDICAID ==
[~2019-02-08] MED LIST changes: +ABIL1INJ2 IM; +CALC600T6 PO; +CETI10TA4 PO; +VENL75CA47 PO; +VENTAER INH
== END ==
LOC: M PAIN 09:45
PROVIDERS: ATTEND Nurse Practitioner Family
DX: M46.1 Sacroiliitis, not elsewhere classified (principal); Z53.21 Procedure and treatment not carried out due to patient leaving prior to being seen by health care provider

== ENCOUNTER → 2019-02-28 | Outpatient (REF) | payer OTHER, MEDICAID ==
[~2019-02-28] MED LIST changes: +ABIL1INJ2 IM; +CALC600T6 PO; +CETI10TA4 PO; +VENL75CA47 PO; +VENTAER INH
== END ==
LOC: M SFHCADAM 14:27
PROVIDERS: ATTEND Physician Assistant
DX: R19.7 Diarrhea, unspecified (principal); Z53.8 Procedure and treatment not carried out for other reasons

== ENCOUNTER → 2019-03-04 | Outpatient (REF) | payer OTHER, MEDICAID | LOC: M SFHCADAM 12:49 | PROVIDERS: ATTEND Family Medicine | DX: R19.7 Diarrhea, unspecified (principal) ==

== ENCOUNTER → 2019-03-18 | Outpatient (CLI) | payer OTHER, MEDICAID ==
[~2019-03-18] MED LIST changes: +VANC250C3 PO
--- NOTE | 2019-04-03 02:18 | ECWPNPC ---
PATIENT NAME: PRUDENCIO SHAHID : 1965 GENDER: FEMALE VISIT DATE: 03/18/2019 DISCHARGE DATE: 03/18/19 1040 VISIT LOCKED DATE TIME: PHYSICIAN: YULISSA STAUFFER RESOURCE: YULISSA STAUFFER REASON FOR APPOINTMENT 1. 2 MONTHS HISTORY OF PRESENT ILLNESS HISTORY OF PRESENT ILLNESS: PAIN THE PATIENT DESCRIBES THE PAIN... HERE FOR F/U OF CHRONIC LBP R>L.REPORTING INTERMITTENT LEFT THIGH PAIN AGGREVATED BY SITTTING.THIS HAS BEEN THERE SINCE FALLING A FEW WEEKS AGO.REPORTING INTERMITTTENT NIGHTTIME AWAKENINGS DUE TO LEFT THIGH PAIN. RATING PAIN VAS 7/10. PAIN AWAKENS HER FROM SLEEP. DESCRIBES PAIN ACHING, STABBING AND SORENESS. FALL RISK SCREENING: SCREENING :NO FALLS REPORTED IN THE LAST YEAR CURRENT MEDICATIONS TAKING HUMALOG 100 UNIT/ML SOLUTION SLIDING SCALE, IF BLOOD SUGAR IS 150 PT TAKES 10 UNITS, IF IT IS HIGHER THAN THAT 12 UNITS SUBCUTANEOUS SLIDING SCALE, MDD 24 UNITS TAKING DRISDOL 97635 UNIT CAPSULE 1 CAPSULE ORALLY WEEKLY TAKING MAGNESIUM OXIDE 400 MG TABLET 1 TABLET ORALLY ONCE A DAY TAKING ZONISAMIDE 25 MG CAPSULE 1 CAPSULES ORALLY BEFORE BEDTIME TAKING ASPIR-81 81 MG TABLET DELAYED RELEASE 1 TABLET ORALLY ONCE A DAY TAKING CALCIUM 600 + D 600-400 MG-UNIT TABLET 1 TABLET ORALLY ONCE A DAY TAKING MAY HAVE - - DIRECTED PATIENT WOULD BENEFIT FROM A GLASS BULB SILVERER ANIMAL DUE TO PSHCYOLOGICAL AND CARDIAC ISSUES TAKING EFFEXOR XR 75 MG CAPSULE EXTENDED RELEASE 24 HOUR 1 CAPSULE WITH FOOD ORALLY ONCE A DAY TAKING PLAVIX 75 MG TABLET 1 TABLET ORALLY ONCE A DAY TAKING ABILIFY MAINTENA 300 MG PREFILLED SYRINGE INTRAMUSCULAR MONTHLY TAKING RANITIDINE HCL 150MG CAPSULE 1 CAPSULE ORALLY TWICE A DAY TAKING ZOFRAN 4 MG TABLET 1 TABLETS ORALLY TWICE A DAY NEEDED FOR NAUSEA/VOMITING TAKING CETIRIZINE HCL 10MG TABLET TAKE ONE TABLET BY MOUTH ONCE DAILY NEEDED TAKING COLACE 100 MG CAPSULE 1 CAPSULE NEEDED ORALLY ONCE A DAY TAKING LIDOCAINE-PRILOCAINE 2.5-2.5 % CREAM DIRECTED TO LOW BACK EXTERNALLY TID PRN TAKING GABAPENTIN 100 MG CAPSULE 2 CAPSULES ORALLY BID TAKING LEVEMIR FLEXPEN 100 UNIT/ML SOLUTION 20 UNITS SUBCUTANEOUS TWICE A DAY TAKING VICTOZA 18 MG/3ML SOLUTION PEN-INJECTOR 1.8 ML SUBCUTANEOUS ONCE A DAY TAKING AMLODIPINE BESYLATE 2.5 MG TABLET 1 TABLET ORALLY ONCE A DAY, NOTES: 0900 TAKING LISINOPRIL 20 MG TABLET 1/2 TABLET ORALLY ONCE A DAY, NOTES: 0900 TAKING ACTOS 45MG TABLET 1 TABLET ORALLY ONCE A DAY TAKING HYDROCHLOROTHIAZIDE 25 MG TABLET 1 TABLET IN THE MORNING ORALLY ONCE A DAY TAKING METHENAMINE HIPPURATE 1 GM TABLET 1 TABLET ORALLY TWICE A DAY TAKING FENOFIBRATE 48 MG TABLET 1 TABLET ORALLY ONCE A DAY TAKING TYLENOL WITH CODEINE #3 300-30 MG TABLET 1 ORALLY EVERY 6 HRS PRN PAIN MDD3 TAKING ALBUTEROL SULFATE (2.5 MG/3ML) 0.083% NEBULIZATION SOLUTION 3 ML INHALATION QID PRN TAKING PROAIR HFA 108 (90 BASE) MCG/ACT AEROSOL SOLUTION 2 PUFFS NEEDED INHALATION EVERY 6 HRS NEEDED TAKING PRAVASTATIN SODIUM 40 MG TABLET 1 TABLET ORALLY ONCE A DAY TAKING VANCOMYCIN HCL 250 MG CAPSULE 1 CAP ORALLY FOUR TIMES DAILY NOT-TAKING ATENOLOL 50 MG TABLET 1 TABLET ORALLY ONCE A DAY NOT-TAKING FLUCONAZOLE 150 MG TABLET 1 TABLET ORALLY DAILY MEDICATION LIST REVIEWED AND RECONCILED WITH THE PATIENT PAST MEDICAL HISTORY HYPERLIPIDEMIA DIABETES MELLITUS - WITH NON-PROLIFERATIVE RETINOPATHY LEFT EYE PER CENTER FOR SIGHT 06/2013. 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 DIFFUSE DISC BULGES AT THE L1-2 AND L3-4 LEVELS WITH MINIMAL THECAL SAC. 2. MINIMAL CENTRAL CANAL STENOSIS AT THE L4-5 LEVEL SECONDARY TO DISC BULGE, - CHRONIC PAIN MANAGEMENT THROUGH [facility]) CKD STAGE 3 C. DIFF 10/2017 & 11/2017 & 02/2018 - S/P STOOL TRANSPLANT RECURRENT UTIS 05/2018 STOOL TRANSPLANT FOR C-DIFF S/P PACER 01/2019 MRI BRAIN 01/2019 - TINY LACUNAR INFARCT - OLD C-DIFF ALLERGIES SEASONAL: NASAL CONGESTION - ALLERGY PEPTO BISMOL: THROAT SWELLS - ALLERGY METFORMIN HCL: CKD - METFORMIN STOPPED BY NEPHRO. 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 1 SON(S) , 2 DAUGHTER(S) - HEALTHY. ONE BROTHER FROM CARDIAC COMPLICATION\\\\\\\\NDAUGHTERS HAVE DEPRESSION. SOCIAL HISTORY GENERAL: TOBACCO USE ARE YOU A:FORMER SMOKER HOW LONG HAS IT BEEN SINCE YOU LAST SMOKED?> 10 YEARS HIV / HEP-C SCREENING HIV TEST OFFERED TO PATIENT:YES DATE OFFERED:06/30/2016 TEST ACCEPTED:NO REASON:PATIENT DECLINED BROCHURE PROVIDED TO PATIENTNO OTHERS AT HOME: CHILD DAUGHTER. DIET: NO CONCENTRATED SWEETS., CARBOHYDRATE CONTROLLED, LOW FAT, LOW CHOLESTEROL. LANGUAGE LANGUAGES SPOKEN:GERMAN DOMESTIC VIOLENCE DO YOU FEEL SAFE IN YOUR ENVIRONMENT?YES BMI CARE GOAL FOLLOW-UP ABOVE NORMAL BMI FOLLOW-UPDIETARY MANAGEMENT EDUCATION, GUIDANCE, AND COUNSELING RECREATIONAL DRUG USE DRUG USE?NO EXERCISE: WALKS 1 MILE WEATHER PERMITTING. LEARNING BARRIERS / SPECIAL NEEDS CHANGE FROM LAST VISIT?NO 10/29/2018 BARRIERS TO LEARNING?NO HEARING IMPAIRED?NO VISION IMPAIRED?YES COGNITIVELY IMPAIRED?NO :CORRECTIVE LENSES READINESS TO LEARN?YES LEARNING PREFERENCES?NO LEARNING CAPABILITIES PRESENT?YES EMOTIONAL BARRIERS?NO SPECIAL DEVICES?NO PRECINCT COMMANDING OFFICER NEEDED?NO LUNG CANCER SCREENING SMOKING STATUS:FORMER SMOKER PAIN CLINIC PFS, CLERGY, PUBLIC HEALTH REFERRALS PFS REFERRAL NEEDED?NO CLERGY REFERRAL NEEDED?NO PUBLIC HEALTH REFERRAL NEEDED?NO WAS THE PROVIDER NOTIFIED OF ANY PERTINENT INFO? N/A HAS THE PATIENT BEEN EDUCATED REGARDING HIS/HER PLAN OF CARE?YES HAS THE PATIENT BEEN EDUCATED REGARDING PAIN, THE RISK FOR PAIN, THE IMPORTANCE OF EFFECTIVE PAIN MANAGEMENT, AND THE PAIN ASSESSMENT PROCESS?YES LATEX QUESTIONNAIRE LATEX ALLERGY : HAVE YOU EVER DEVELOPED ANY TYPE OF REACTION AFTER HANDLING LATEX PRODUCTS SUCH RUBBER GLOVES, CONDOMS, DIAPHRAGMS, BALLOONS, SOCKS, OR UNDERWEAR?NO LATEX ALLERGY : HAVE YOU EVER DEVELOPED ANY TYPE OF REACTION DURING OR AFTER DENTAL APPOINTMENT, VAGINAL/RECTAL EXAMINATION, SURGICAL PROCEDURE, OR ANY OTHER EXPOSURE?NO DATE ASKED : 11/20/2018 LATEX RISK : HAVE YOU EVER HAD ANY DIFFICULTY BREATHING OR HIVES AFTER EATING OR HANDLING ANY FRUITS, OR VEGETABLES; SUCH KIWI, BANANAS, STONE FRUITS, OR CHESTNUTSNO LATEX RISK : DO YOU HAVE A PREVIOUS PERSONAL HISTORY OF MORE THAN NINE SURGERIES, SPINA BIFIDA, OR REPEATED CATHERIZATIONS? NO LATEX RISK : ARE YOU FREQUENTLY EXPOSED TO LATEX PRODUCTS IN YOUR OCCUPATION?NO CAFFEINE CAFFEINE USE?YES 1CUP COFFEE ADVANCE DIRECTIVE ADVANCE DIRECTIVE DISCUSSED WITH PATIENT:YES PT HAS HCP USMAN ROBERTS [phone] BUDDHISM [id number] SHINTO MARITAL STATUS: .. ALCOHOL SCREENING DID YOU HAVE A DRINK CONTAINING ALCOHOL IN THE PAST YEAR?NO POINTS0 INTERPRETATIONNEGATIVE SEXUAL HX HAD SEX IN THE LAST 12 MONTHS (VAGINAL, ORAL, OR ANAL)?NO LMP:02/2016 HAVE YOU EVER HAD AN STD?NO REVIEWED WITH PT 11/13/17 1410 LASREVIEWED WITH PT 12/12/17 1027 LAS07/11/18 REVIEWED WITH PT. ADREVIEWED WITH PT 12/10/18 1025 NLJREVIEWED WITH PATIENT 03/18/19 LAS. HOSPITALIZATION/MAJOR DIAGNOSTIC PROCEDURE 3 DAYS FOR TIA 06/2013 SURGERIES REVIEW OF SYSTEMS REVIEWED BY: PROVIDER: YULISSA RASHID . CONSTITUTIONAL: ANY CHANGE IN YOUR MEDICAL CONDITION? YES PT RECENTLY DIAGNOSED WITH C-DIFF, CURRENTLY BEING TREATED WITH VANCOMYCIN, DAY 8 OF 10 DAY COURSE . CHILLS NO . FEVER NO . INFECTION: DO YOU HAVE NEW INFECTIONS? SEE ABOVE . DO YOU HAVE HISTORY OF MRSA? NO . MUSCULOSKELETAL: ANY NEW PATTERNS OF PAIN OR NUMBNESS? YES PT REPORTS NUMBNESS GOING DOWN HER LEFT BUTTOCKS AND THE BACK OF HER RIGHT LEG SINCE SHE FELL 03/01 . GASTROENTEROLOGY: ANY NEW CHANGE IN BOWEL CONTROL? R/T C-DIFF . GENITOURINARY: ANY NEW CHANGE IN BLADDER CONTROL? NO . IS THERE A CHANCE YOU COULD BE ? NO . HEMATOLOGY/LYMPH: DO YOU TAKE ANY BLOOD THINNERS? (FOR EXAMPLE- COUMADIN, PLAVIX, AGGRENOX, PLATEL, PRADAXA, OR XARELTO) YES PLAVIX . WHEN WAS YOUR LAST DOSE? DATE: TIME: . NEUROLOGY: HAVE YOU FALLEN IN THE PAST 12 MONTHS? YES PT REPORTS FALL ON 03/01. PT REPORTS SHE SLIPPED ON SNOW AND ICE, FALLING ONTO HER BACK. NO ED OR MD VISIT, NO XRAYS. PT REPORTS PAIN AND BRUISING IN BUTTOCKS, THIS HAS RESOLVED, BUT CONTINUES WITH PAIN AND NUMBNESS DOWN RIGHT LEG/ ALSO LEFT BUTTOCKS WITH SOME DISCOMFORT . ANY NEW EXTREMITY NUMBNESS OR WEAKNESS? YES SEE NOTE . CARDIOLOGY: DO YOU HAVE A PACEMAKER OR DEFIBRILLATOR? YES CARDIAC PACEMAKER PLACED 02/11/2019 . RESPIRATORY: HAVE YOU BEEN SICK IN THE PAST WEEK? NO . FEVER NO . FLU LIKE SYMPTOMS? NO . COUGH NO . INTEGUMENTARY: DO YOU HAVE ANY RASHES OR OPEN SORES? NO . ALLERGIC/IMMUNO: ARE YOU ALLERGIC TO IV DYE? NO . ANY NEW ALLERGIES? NO . PSYCHIATRIC: DO YOU HAVE THOUGHTS OF HURTING YOURSELF OR SOMEONE ELSE? NO . ARE YOU ABUSED, NEGLECTED, OR IN AN UNSAFE ENVIRONMENT? NO . ENDOCRINOLOGY: ARE YOU DIABETIC? YES . OTHER: DO YOU NEED ANY PRESCRIPTIONS? YES . IF YES, PLEASE LIST: ____TYLENOL WITH CODEINE, GABAPENTIN . ANY NEW PROBLEMS WITH YOUR MEDICATIONS? NO . WHEN DID YOU LAST EAT? ____ . WHEN DID YOU LAST DRINK? ____ . WHAT DID YOU LAST DRINK? ____ . NAME OF PERSON DRIVING YOU HOME? ____ . DO YOU HAVE ANY OTHER QUESTIONS OR CONCERNS YES PT IS CONCERNED ABOUT THE NUMBNESS IN LEFT BUTTOCKS AND RIGHT UPPER THIGH . VITAL SIGNS WT 242.6 LBS, HT 64.25 IN, BMI 41.31 INDEX, BP 141/91 MM HG, HR 106 /MIN, RR 18 /MIN, TEMP 97.4 F, OXYGEN SAT % 99%, SAFE IN ENV? (Y/N) YES, NA INITIALS AK 09:39, REVIEWED BY: LAS. ROTHMAN SACROILIITIS - M46.1 (PRIMARY) TREATMENT SACROILIITIS REFILL GABAPENTIN CAPSULE, 100 MG, 2 CAPSULES, ORALLY, BID, 30 DAYS, 60, REFILLS 2 REFILL TYLENOL WITH CODEINE #3 TABLET, 300-30 MG, 1, ORALLY, EVERY 6 HRS PRN PAIN MDD3, 7 DAY(S), 21, REFILLS 0 NOTES: ISTOP REGISTRY REVIEWED AND DEMONSTRATES COMPLLIANCE. BRINGS IN MEDICATIONS WHICH IS APPROPRIATE FOR WHAT WAS DISPENSED. RECENT URINE TOXICOLOGY REVIEWED. NO UNAUTHORIZED MEDICATIONS. NO ILLICIT SUBSTANCES AND PRESCRIBED MEDICATIONS WERE PRESENT. DUE TO PATIENT'S RECENT ILLNESS AND CURRENT TREATMENT FOR C DIFF WE WILL HOLD OFF ON INJECTION THERAPY FOR NOW. WE'LL CONSIDER INJECTIONS AT FOLLOW-UP IN 4-6 WEEKS. PROCEDURE CODES FA211 ESTABILISHED PATIENT [facility] CHARGE DISPOSITION & COMMUNICATION FOLLOW UP 6 WEEKS ELECTRONICALLY SIGNED BY GAY CEDEÑO ON 04/02/2019 AT 09:16 AM EST DISCLAIMER : THIS IS A VISIT SUMMARY EXTRACTED FROM THE [employer] CHART. IT IS NOT A COPY OF THE [employer] PROGRESS NOTE. MARYLOU
== END ==
LOC: M PAIN 09:30
PROVIDERS: ATTEND Nurse Practitioner Family
DX: M46.1 Sacroiliitis, not elsewhere classified (principal)

== ENCOUNTER 2019-03-23 12:55 | Emergency (ER) | payer OTHER, MEDICAID ==
[~2019-03-23] VITALS: Ht 165.1 cm; Wt 108.6 kg
[~2019-03-23 12:55] MED LIST changes: -VANC250C3 PO
[2019-03-23 13:50] LABS: BASO % 0.4 % (0.0-1.0); EOS # 0.3 10^3/uL (0.0-0.5); EOS % 4.1 % (0.0-3.0); HEMATOCRIT 35.4 % (36.0-47.0); HEMOGLOBIN 11.4 g/dl (12.0-15.5); LYMPH # 1.2 10^3/uL (1.5-5.0); LYMPH % 16.4 % (24.0-44.0); MEAN CORPUSCULAR HEMOGLOBIN 28.4 pg (27.0-33.0); MEAN CORPUSCULAR HGB CONC 32.2 g/dl (32.0-36.5); MEAN CORPUSCULAR VOLUME 88.3 fl (80.0-96.0); MONO # 0.4 10^3/uL (0.0-0.8); MONO % 5.5 % (0.0-5.0); NEUTROPHILS # 5.1 10^3/uL (1.5-8.5); PLATELET COUNT, AUTOMATED 232 10^3/uL (150-450); RED BLOOD COUNT 4.01 10^6/uL (4.00-5.40)
[2019-03-23] MEDS ORDERED: ISOVUE-370 76% 100ML VIAL (Q9967) As Ordered ONE (14:17)
[2019-03-23 14:24] LABS: ALBUMIN 3.2 GM/DL (3.2-5.2); ALT/SGPT 17 U/L (12-78); BILIRUBIN,DIRECT < 0.1 MG/DL (0.0-0.2); BILIRUBIN,TOTAL 0.5 MG/DL (0.2-1.0); LIPASE 163 U/L (73-393); TOTAL PROTEIN 7.2 GM/DL (6.4-8.2)
--- NOTE | 2019-03-23 14:48 | REP ---
Clinical: Right lower quadrant pain. Technique: Axial contrast enhanced images from the lung bases to the pubic symphysis using 100 ml Isovue 370 intravenous contrast material with coronal and sagittal re-formations. Comparison: 04/11/2018 Findings: Lung bases are clear. Liver, spleen, pancreas, bilateral adrenal glands and kidneys are normal / stable. Focal area of fatty infiltration surrounds the gallbladder fossa. Evidence of prior cholecystectomy noted. The enteric system is without obstruction or acute inflammatory process. Normal terminal ileum, cecum and appendix are identified in the right lower quadrant. Scattered sigmoid diverticula noted without acute diverticulitis. Pelvis demonstrates normal bladder and age-appropriate uterus/adnexa. No ascites. No free air. No adenopathy. Abdominal aorta without aneurysm or dissection. Musculoskeletal structures without focal osseous abnormality. Impression: 1. No acute abdominopelvic pathology appreciated. 2. Normal right lower quadrant structures. 3. No ascites, adenopathy, or focal inflammatory stranding. Electronically Signed by Shukri Burris MD 03/23/2019 02:39 P
[2019-03-23 16:33] VITALS: BP 137/71
[2019-03-23] MEDS ORDERED: VANC250C3 PO (16:35)
== END 2019-03-23 16:45 | disposition home or self-care (01) ==
LOC: M ED 12:55 → EDBD 12:55 → M ED 16:45
DX: A04.72 Enterocolitis due to Clostridium difficile, not specified as recurrent (principal); E11.22 Type 2 diabetes mellitus with diabetic chronic kidney disease; I12.9 Hypertensive chronic kidney disease with stage 1 through stage 4 chronic kidney disease, or unspecified chronic kidney disease; N18.3 Chronic kidney disease, stage 3 (moderate); J45.909 Unspecified asthma, uncomplicated; F31.9 Bipolar disorder, unspecified; Z86.73 Personal history of transient ischemic attack (TIA), and cerebral infarction without residual deficits; Z87.891 Personal history of nicotine dependence; Z88.8 Allergy status to other drugs, medicaments and biological substances; Z79.899 Other long term (current) drug therapy; Z79.4 Long term (current) use of insulin; Z79.02 Long term (current) use of antithrombotics/antiplatelets; Z79.82 Long term (current) use of aspirin; Z79.2 Long term (current) use of antibiotics
CPT/HCPCS: 74177; 80047; 80076; 81001; 83690; 85025; 93041; 99285; Q9967

== ENCOUNTER 2019-04-15 17:48 | Emergency (ER) | payer OTHER, MEDICAID ==
[~2019-04-15] VITALS: Ht 152.4 cm; Wt 109.7 kg
[~2019-04-15 17:48] MED LIST changes: -FENO145T13 PO; +FENO145T7 PO; -FENO48TA13; -FENO48TA13 PO; +FENO48TA7; +FENO48TA7 PO; +VANC250C3 PO; +ZONI25CA13 PO; -ZONI25CA2 PO; +ZONI50CA11 PO; -ZONI50CA3 PO
[2019-04-15] MEDS ORDERED: VENL75CA2 (17:55)
[2019-04-15] MEDS ORDERED: LEVO500T3 (17:55)
[2019-04-15] MEDS ORDERED: NITR100C2 (17:55)
[2019-04-15] MEDS ORDERED: PHEN-501 (17:55)
[2019-04-15 18:58] LABS: BASO % 0.6 % (0.0-1.0); EOS # 0.5 10^3/uL (0.0-0.5); EOS % 7.3 % (0.0-3.0); HEMATOCRIT 37.5 % (36.0-47.0); HEMOGLOBIN 11.8 g/dl (12.0-15.5); LYMPH % 16.2 % (24.0-44.0); MEAN CORPUSCULAR HEMOGLOBIN 27.4 pg (27.0-33.0); MEAN CORPUSCULAR HGB CONC 31.5 g/dl (32.0-36.5); MONO # 0.5 10^3/uL (0.0-0.8); MONO % 7.8 % (0.0-5.0); NEUTROPHILS # 4.3 10^3/uL (1.5-8.5); PLATELET COUNT, AUTOMATED 225 10^3/uL (150-450); RED BLOOD COUNT 4.31 10^6/uL (4.00-5.40); WHITE BLOOD COUNT 6.4 10^3/uL (4.0-10.0)
[2019-04-15] MEDS ORDERED: ALBUTEROL SULFATE 2.5 MG/0.5 ML INH NEB SOLN NEB ONE (19:30)
[2019-04-15 19:34] LABS: BLOOD UREA NITROGEN 23 MG/DL (7-18); CALCIUM LEVEL 9.3 MG/DL (8.5-10.1); CARBON DIOXIDE LEVEL 28 MEQ/L (21-32); CHLORIDE LEVEL 103 MEQ/L (98-107); CK-MB VALUE MASS 1.4 NG/ML (<3.6); CPK CREATINE PHOSPHOKINASE 161 U/L (26-192); CREATININE FOR GFR 1.43 MG/DL (0.55-1.30); GLOMERULAR FILTRATION RATE 40.7 (>51); GLUCOSE, FASTING 321 MG/DL (70-100); MB/CK RELATIVE INDEX 0.87 (< OR =4); NT-PRO BNP 89 PG/ML (<125); POTASSIUM SERUM 4.7 MEQ/L (3.5-5.1); SODIUM LEVEL 139 MEQ/L (136-145); TROPONIN I < 0.02 NG/ML (< 0.10)
[2019-04-15 20:19] LABS: INFLUENZA A AMPLIFICATION NEGATIVE (NEGATIVE); INFLUENZA B AMPLIFICATION NEGATIVE (NEGATIVE)
--- NOTE | 2019-04-15 20:29 | REP ---
PA and lateral chest: Comparison is 02/12/2019. The lung canas are clear. The cardiac size is normal. The natividad, mediastinum, and skeletal structures are unremarkable. There is a dual-chamber pacemaker entering from left, unchanged. Impression: Negative PA and lateral chest. Electronically Signed by Michael Aguirre MD 04/15/2019 08:21 P
[2019-04-15 21:41] VITALS: BP 134/66
[2019-04-15 22:19] LABS: HEMOGLOBIN A1c 8.5 %
--- NOTE | 2019-04-16 20:45 | ECGEPIP ---
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
== END 2019-04-15 22:12 | disposition home or self-care (01) ==
LOC: M ED 17:48
DX: J06.9 Acute upper respiratory infection, unspecified (principal); B97.4 Respiratory syncytial virus as the cause of diseases classified elsewhere; J45.909 Unspecified asthma, uncomplicated; E11.65 Type 2 diabetes mellitus with hyperglycemia; R07.89 Other chest pain; N18.3 Chronic kidney disease, stage 3 (moderate); E11.29 Type 2 diabetes mellitus with other diabetic kidney complication; I12.9 Hypertensive chronic kidney disease with stage 1 through stage 4 chronic kidney disease, or unspecified chronic kidney disease; E11.319 Type 2 diabetes mellitus with unspecified diabetic retinopathy without macular edema; G43.909 Migraine, unspecified, not intractable, without status migrainosus; M54.9 Dorsalgia, unspecified; Z86.19 Personal history of other infectious and parasitic diseases; F25.9 Schizoaffective disorder, unspecified; F31.9 Bipolar disorder, unspecified; Z95.0 Presence of cardiac pacemaker; Z86.73 Personal history of transient ischemic attack (TIA), and cerebral infarction without residual deficits; Z86.711 Personal history of pulmonary embolism; Z88.8 Allergy status to other drugs, medicaments and biological substances; Z79.899 Other long term (current) drug therapy; Z79.4 Long term (current) use of insulin; Z79.02 Long term (current) use of antithrombotics/antiplatelets; Z79.82 Long term (current) use of aspirin

== ENCOUNTER → 2019-04-30 | Outpatient (CLI) | payer OTHER, MEDICAID ==
[~2019-04-30] MED LIST changes: +LEVO500T3; +NITR100C2; +PHEN-501; +VENL75CA2
--- NOTE | 2019-05-03 03:05 | ECWPNPC ---
PATIENT NAME: PRUDENCIO SHAHID : 1965 GENDER: FEMALE VISIT DATE: 04/30/2019 DISCHARGE DATE: 04/30/19 1233 VISIT LOCKED DATE TIME: PHYSICIAN: YULISSA STAUFFER RESOURCE: YULISSA STAUFFER REASON FOR APPOINTMENT 1. BACK HISTORY OF PRESENT ILLNESS HISTORY OF PRESENT ILLNESS: HERE FOR FOLLOW-UP OF CHRONIC LOW BACK PAIN. RATING PAIN INTENSITY 8/10 VAS. DESCRIBES PAIN CONSTANT ACHING AND SHOOTING. REPORTS NIGHTTIME AWAKENINGS DUE TO PAIN. HAS RESPONDED WELL TO SACROILIAC BLOCK, LAST DONE IN OCTOBER 2018. PAIN THE PATIENT DESCRIBES THE PAIN... FALL RISK SCREENING: SCREENING :NO FALLS REPORTED IN THE LAST YEAR CURRENT MEDICATIONS TAKING HUMALOG 100 UNIT/ML SOLUTION SLIDING SCALE, IF BLOOD SUGAR IS 150 PT TAKES 14 UNITS, IF IT IS HIGHER THAN THAT 14 UNITS SUBCUTANEOUS SLIDING SCALE, MDD 24 UNITS TAKING DRISDOL 02174 UNIT CAPSULE 1 CAPSULE ORALLY WEEKLY TAKING MAGNESIUM OXIDE 400 MG TABLET 1 TABLET ORALLY ONCE A DAY TAKING ZONISAMIDE 25 MG CAPSULE 1 CAPSULES ORALLY BEFORE BEDTIME TAKING ASPIR-81 81 MG TABLET DELAYED RELEASE 1 TABLET ORALLY ONCE A DAY TAKING CALCIUM 600 + D 600-400 MG-UNIT TABLET 1 TABLET ORALLY ONCE A DAY TAKING MAY HAVE - - DIRECTED PATIENT WOULD BENEFIT FROM A [employer] OPERATOR ANIMAL DUE TO PSHCYOLOGICAL AND CARDIAC ISSUES TAKING EFFEXOR XR 75 MG CAPSULE EXTENDED RELEASE 24 HOUR 1 CAPSULE WITH FOOD ORALLY ONCE A DAY TAKING PLAVIX 75 MG TABLET 1 TABLET ORALLY ONCE A DAY TAKING ABILIFY MAINTENA 300 MG PREFILLED SYRINGE INTRAMUSCULAR MONTHLY TAKING ZOFRAN 4 MG TABLET 1 TABLETS ORALLY TWICE A DAY NEEDED FOR NAUSEA/VOMITING TAKING CETIRIZINE HCL 10MG TABLET TAKE ONE TABLET BY MOUTH ONCE DAILY NEEDED TAKING COLACE 100 MG CAPSULE 1 CAPSULE NEEDED ORALLY ONCE A DAY TAKING LEVEMIR FLEXPEN 100 UNIT/ML SOLUTION 20 UNITS SUBCUTANEOUS TWICE A DAY TAKING VICTOZA 18 MG/3ML SOLUTION PEN-INJECTOR 1.8 ML SUBCUTANEOUS ONCE A DAY TAKING AMLODIPINE BESYLATE 2.5 MG TABLET 1 TABLET ORALLY ONCE A DAY, NOTES: 0900 TAKING LISINOPRIL 20 MG TABLET 1/2 TABLET ORALLY ONCE A DAY, NOTES: 0900 TAKING ACTOS 45MG TABLET 1 TABLET ORALLY ONCE A DAY TAKING HYDROCHLOROTHIAZIDE 25 MG TABLET 1 TABLET IN THE MORNING ORALLY ONCE A DAY TAKING METHENAMINE HIPPURATE 1 GM TABLET 1 TABLET ORALLY TWICE A DAY TAKING FENOFIBRATE 48 MG TABLET 1 TABLET ORALLY ONCE A DAY TAKING ALBUTEROL SULFATE (2.5 MG/3ML) 0.083% NEBULIZATION SOLUTION 3 ML INHALATION QID PRN TAKING PROAIR HFA 108 (90 BASE) MCG/ACT AEROSOL SOLUTION 2 PUFFS NEEDED INHALATION EVERY 6 HRS NEEDED TAKING PRAVASTATIN SODIUM 40 MG TABLET 1 TABLET ORALLY ONCE A DAY TAKING GABAPENTIN 100 MG CAPSULE 2 CAPSULES ORALLY BID TAKING TYLENOL WITH CODEINE #3 300-30 MG TABLET 1 ORALLY EVERY 6 HRS PRN PAIN MDD3 TAKING DECONGESTANT - TABLET EXTENDED RELEASE DIRECTED ORALLY , NOTES: HIGH BLOOD PREASURE TAKING DOXYCYCLINE HYCLATE 100 MG CAPSULE 1 CAPSULE ORALLY TWICE A DAY TAKING FLUCONAZOLE 150 MG TABLET 1 TABLET ORALLY DIRECTED TAKING BACID - CAPSULE 2 CAPS ORALLY THREE TIMES DAILY WITH MEALS TAKING LIDOCAINE-PRILOCAINE 2.5-2.5 % CREAM DIRECTED TO LOW BACK EXTERNALLY TID PRN NOT-TAKING RANITIDINE HCL 150MG CAPSULE 1 CAPSULE ORALLY TWICE A DAY NOT-TAKING VANCOMYCIN HCL 250 MG CAPSULE 1 CAP ORALLY FOUR TIMES DAILY NOT-TAKING ATENOLOL 50 MG TABLET 1 TABLET ORALLY ONCE A DAY NOT-TAKING FLUCONAZOLE 150 MG TABLET 1 TABLET ORALLY DAILY MEDICATION LIST REVIEWED AND RECONCILED WITH THE PATIENT PAST MEDICAL HISTORY HYPERLIPIDEMIA DIABETES MELLITUS - WITH NON-PROLIFERATIVE RETINOPATHY LEFT EYE PER CENTER FOR SIGHT 06/2013. 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 DIFFUSE DISC BULGES AT THE L1-2 AND L3-4 LEVELS WITH MINIMAL THECAL SAC. 2. MINIMAL CENTRAL CANAL STENOSIS AT THE L4-5 LEVEL SECONDARY TO DISC BULGE, - CHRONIC PAIN MANAGEMENT THROUGH [facility]) CKD STAGE 3 C. 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 1 SON(S) , 2 DAUGHTER(S) - HEALTHY. ONE BROTHER FROM CARDIAC COMPLICATION\\\\\\\\NDAUGHTERS HAVE DEPRESSION. SOCIAL HISTORY GENERAL: TOBACCO USE ARE YOU A:FORMER SMOKER HOW LONG HAS IT BEEN SINCE YOU LAST SMOKED?> 10 YEARS HIV / HEP-C SCREENING HIV TEST OFFERED TO PATIENT:YES DATE OFFERED:06/30/2016 TEST ACCEPTED:NO REASON:PATIENT DECLINED BROCHURE PROVIDED TO PATIENTNO OTHERS AT HOME: CHILD DAUGHTER. DIET: NO CONCENTRATED SWEETS., CARBOHYDRATE CONTROLLED, LOW FAT, LOW CHOLESTEROL. LANGUAGE LANGUAGES SPOKEN:SYRIAN DOMESTIC VIOLENCE DO YOU FEEL SAFE IN YOUR ENVIRONMENT?YES BMI CARE GOAL FOLLOW-UP ABOVE NORMAL BMI FOLLOW-UPDIETARY MANAGEMENT EDUCATION, GUIDANCE, AND COUNSELING RECREATIONAL DRUG USE DRUG USE?NO EXERCISE: WALKS 1 MILE WEATHER PERMITTING. LEARNING BARRIERS / SPECIAL NEEDS CHANGE FROM LAST VISIT?NO 10/29/2018 BARRIERS TO LEARNING?NO HEARING IMPAIRED?NO VISION IMPAIRED?YES COGNITIVELY IMPAIRED?NO :CORRECTIVE LENSES READINESS TO LEARN?YES LEARNING PREFERENCES?NO LEARNING CAPABILITIES PRESENT?YES EMOTIONAL BARRIERS?NO SPECIAL DEVICES?NO TUB WASHER NEEDED?NO LUNG CANCER SCREENING SMOKING STATUS:FORMER SMOKER PAIN CLINIC PFS, CLERGY, PUBLIC HEALTH REFERRALS PFS REFERRAL NEEDED?NO CLERGY REFERRAL NEEDED?NO PUBLIC HEALTH REFERRAL NEEDED?NO WAS THE PROVIDER NOTIFIED OF ANY PERTINENT INFO?YES N/A HAS THE PATIENT BEEN EDUCATED REGARDING HIS/HER PLAN OF CARE?YES HAS THE PATIENT BEEN EDUCATED REGARDING PAIN, THE RISK FOR PAIN, THE IMPORTANCE OF EFFECTIVE PAIN MANAGEMENT, AND THE PAIN ASSESSMENT PROCESS?YES LATEX QUESTIONNAIRE LATEX ALLERGY : HAVE YOU EVER DEVELOPED ANY TYPE OF REACTION AFTER HANDLING LATEX PRODUCTS SUCH RUBBER GLOVES, CONDOMS, DIAPHRAGMS, BALLOONS, SOCKS, OR UNDERWEAR?NO LATEX ALLERGY : HAVE YOU EVER DEVELOPED ANY TYPE OF REACTION DURING OR AFTER DENTAL APPOINTMENT, VAGINAL/RECTAL EXAMINATION, SURGICAL PROCEDURE, OR ANY OTHER EXPOSURE?NO LATEX RISK : HAVE YOU EVER HAD ANY DIFFICULTY BREATHING OR HIVES AFTER EATING OR HANDLING ANY FRUITS, OR VEGETABLES; SUCH KIWI, BANANAS, STONE FRUITS, OR CHESTNUTSNO LATEX RISK : DO YOU HAVE A PREVIOUS PERSONAL HISTORY OF MORE THAN NINE SURGERIES, SPINA BIFIDA, OR REPEATED CATHERIZATIONS? NO LATEX RISK : ARE YOU FREQUENTLY EXPOSED TO LATEX PRODUCTS IN YOUR OCCUPATION?NO DATE ASKED : 04/30/2019 CAFFEINE CAFFEINE USE?YES 1CUP COFFEE ADVANCE DIRECTIVE ADVANCE DIRECTIVE DISCUSSED WITH PATIENT:YES PT HAS HCP USMAN ARMANDO [phone] RASTAFARIAN [id number] JUDAISM MARITAL STATUS: .. ALCOHOL SCREENING DID YOU HAVE A DRINK CONTAINING ALCOHOL IN THE PAST YEAR?NO POINTS0 INTERPRETATIONNEGATIVE SEXUAL HX HAD SEX IN THE LAST 12 MONTHS (VAGINAL, ORAL, OR ANAL)?NO LMP:02/2016 HAVE YOU EVER HAD AN STD?NO REVIEWED WITH PT 11/13/17 1410 LASREVIEWED WITH PT 12/12/17 1027 LAS07/11/18 REVIEWED WITH PT. ADREVIEWED WITH PT 12/10/18 1025 NLJREVIEWED WITH PATIENT 03/18/19 LASREVIEWED WITH PATIENT 04/30/2019 DS. HOSPITALIZATION/MAJOR DIAGNOSTIC PROCEDURE 3 DAYS FOR TIA 06/2013 SURGERIES REVIEW OF SYSTEMS REVIEWED BY: PROVIDER: YULISSA RASHID . CONSTITUTIONAL: ANY CHANGE IN YOUR MEDICAL CONDITION? NO . CHILLS NO . FEVER NO . INFECTION: DO YOU HAVE NEW INFECTIONS? YES, LUNG BACTERIAL INFECTION, TAKING DOXYCYCLINE . DO YOU HAVE HISTORY OF MRSA? NO . MUSCULOSKELETAL: ANY NEW PATTERNS OF PAIN OR NUMBNESS? NO . GASTROENTEROLOGY: ANY NEW CHANGE IN BOWEL CONTROL? NO . GENITOURINARY: ANY NEW CHANGE IN BLADDER CONTROL? NO . IS THERE A CHANCE YOU COULD BE ? NO . HEMATOLOGY/LYMPH: DO YOU TAKE ANY BLOOD THINNERS? (FOR EXAMPLE- COUMADIN, PLAVIX, AGGRENOX, PLATEL, PRADAXA, OR XARELTO) YES, TAKING PLAVIX DUE TO HX OF STROKE . WHEN WAS YOUR LAST DOSE? DATE: TIME: . NEUROLOGY: HAVE YOU FALLEN IN THE PAST 12 MONTHS? YES, PT STATES THAT SHE FELL AT HOME, PT STATES THAT SHE DID NOT REPORT TO ED, INJURED NECK WHEN SHE LANDED ON BACK AND BUMPED HEAD. DS . ANY NEW EXTREMITY NUMBNESS OR WEAKNESS? NO . CARDIOLOGY: DO YOU HAVE A PACEMAKER OR DEFIBRILLATOR? YES, PACEMAKER . RESPIRATORY: HAVE YOU BEEN SICK IN THE PAST WEEK? YES, SICK WITH LUNG BACTERIAL INFECTION . FEVER NO . FLU LIKE SYMPTOMS? NO . COUGH NO . INTEGUMENTARY: DO YOU HAVE ANY RASHES OR OPEN SORES? NO . ALLERGIC/IMMUNO: ARE YOU ALLERGIC TO IV DYE? NO . ANY NEW ALLERGIES? NO . PSYCHIATRIC: DO YOU HAVE THOUGHTS OF HURTING YOURSELF OR SOMEONE ELSE? NO . ARE YOU ABUSED, NEGLECTED, OR IN AN UNSAFE ENVIRONMENT? NO . ENDOCRINOLOGY: ARE YOU DIABETIC? YES, TAKING INSULIN . OTHER: DO YOU NEED ANY PRESCRIPTIONS? PRILOCAINE, LIDOCAINE, TYLENOL #3 . IF YES, PLEASE LIST: ____ . ANY NEW PROBLEMS WITH YOUR MEDICATIONS? NO . WHEN DID YOU LAST EAT? ____ . WHEN DID YOU LAST DRINK? ____ . WHAT DID YOU LAST DRINK? ____ . NAME OF PERSON DRIVING YOU HOME? ____ . DO YOU HAVE ANY OTHER QUESTIONS OR CONCERNS NO . VITAL SIGNS WT 238.8 LBS, HT 64.25 IN, BMI 40.67 INDEX, BP 174/92 MM HG, HR 92 /MIN, RR 16 /MIN, TEMP 97.7 F, OXYGEN SAT % 100, SAFE IN ENV? (Y/N) Y, REVIEWED BY: [id number]. EXAMINATION GENERAL EXAMINATION: GENERALALERT,NO DISTRESS . PSYCHAFFECT NORMAL . LUNGS:LUNG SOUNDS ARE CLEAR . HEART:HEART RATE REGULAR . MUSCULOSKELETAL:MST 5/5 BILAT. LOWER EXTREMITIES . LUMBAR: TENDERNESS BILAT. SIJ R>L. DIAGNOSTIC TESTS REVIEWEDMRI L/S SPINE-2015. 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 HOLD PLAVIX FOR 7 DAYS SCHEDULE PROCEDURE DAY 8, ISTOP REGISTRY REVIEWED AND DEMONSTRATES COMPLLIANCE. BRINGS IN MEDICATIONS WHICH IS APPROPRIATE FOR WHAT WAS DISPENSED. RECENT URINE TOXICOLOGY REVIEWED. NO UNAUTHORIZED MEDICATIONS. NO ILLICIT SUBSTANCES AND PRESCRIBED MEDICATIONS WERE PRESENT. , RISKS OF NARCOTIC/OPIOD MEDICATIONS INCLUDES BUT IS NOT LIMITED TO RISK OF DEPENDANCE/DEVELOPMENT OF ADDICTION, MOOD DISTURBANCE AND DEPRESSION, OSTEOPOROSIS, HORMONAL AND LABIDAL CHANGES, RESPIRATORY DEPRESSION AND . PATIENT IS ADVISED NOT TO DRIVE OR DRINK ALCOHOL WHILE ON THESE MEDICATIONS. PREVENTIVE MEDICINE PAIN CLINIC TEACHING: THE PATIENT HAS BEEN EDUCATED REGARDING PAIN, THE RISK FOR PAIN, THE IMPORTANCE OF EFFECTIVE PAIN MANAGEMENT, AND THE PAIN ASSESSMENT PROCESS. : REVIEWED TREATMENT PLAN WITH PATIENT, REVIEWED AND DISCUSSED WRITTEN INSTRUCTIONS FOR PRE-PROCEDURE TEACHING, PT ACKNOWLEDGED UNDERSTANIND, DS PROCEDURE CODES [id number] ESTABILISHED PATIENT [facility] CHARGE DISPOSITION & COMMUNICATION FOLLOW UP POST (REASON: BILAT SIJ) ELECTRONICALLY SIGNED BY GAY CEDEÑO ON 05/02/2019 AT 01:31 PM EST DISCLAIMER : THIS IS A VISIT SUMMARY EXTRACTED FROM THE [employer] CHART. IT IS NOT A COPY OF THE [employer] PROGRESS NOTE. MARYLOU
== END ==
LOC: M PAIN 11:00
PROVIDERS: ATTEND Nurse Practitioner Family
DX: M46.1 Sacroiliitis, not elsewhere classified (principal); G89.29 Other chronic pain; E78.5 Hyperlipidemia, unspecified; E11.9 Type 2 diabetes mellitus without complications; Z86.59 Personal history of other mental and behavioral disorders; I10 Essential (primary) hypertension; J45.909 Unspecified asthma, uncomplicated; Z86.19 Personal history of other infectious and parasitic diseases; Z87.891 Personal history of nicotine dependence; Z88.8 Allergy status to other drugs, medicaments and biological substances; E66.01 Morbid (severe) obesity due to excess calories; Z68.41 Body mass index [BMI] 40.0-44.9, adult; Z79.4 Long term (current) use of insulin; Z79.82 Long term (current) use of aspirin; Z79.891 Long term (current) use of opiate analgesic; Z79.899 Other long term (current) drug therapy

== ENCOUNTER → 2019-06-11 | Outpatient (CLI) | payer OTHER, MEDICAID ==
[~2019-06-11] MED LIST changes: +BUPIVACAINE HCL 0.25% 30 ML VIAL As Ordered ONE; +ISOVUE-M 300 61% 15ML VIAL (Q9967) As Ordered ONE; +LIDOCAINE 1% SDV INJ 30 ML VIAL As Ordered ONE; +TRIAMCINOLONE ACETONIDE SUSP 40 MG/ML VIAL (J3301) As Ordered ONE; +diazePAM 5 MG TAB As Ordered ONE; +oxyCODONE 5MG TAB As Ordered ONE
--- NOTE | 2019-06-11 16:30 | REP ---
SI joint series: Four views. History: Bilateral SI joint injection for pain. 34 seconds of fluoroscopy time is reported. Findings: A sequence of four last image hold fluoroscopically obtained spot radiographs of the SI joints document needle position and contrast injection associated with injection procedure. Electronically Signed by Doug Shane MD 06/11/2019 04:22 P
--- NOTE | 2019-06-21 03:42 | ECWPNPC ---
PATIENT NAME: PRUDENCIO SHAHID : 1965 GENDER: FEMALE VISIT DATE: 06/11/2019 DISCHARGE DATE: 06/11/19 1546 VISIT LOCKED DATE TIME: PHYSICIAN: PANDA SO MD RESOURCE: PANDA SO MD REASON FOR APPOINTMENT 1. BILJAROD SOLARES HISTORY OF PRESENT ILLNESS HISTORY OF PRESENT ILLNESS: PAIN THE PATIENT DESCRIBES THE PAIN... FALL RISK SCREENING: SCREENING :NO FALLS REPORTED IN THE LAST YEAR CURRENT MEDICATIONS TAKING HUMALOG 100 UNIT/ML SOLUTION SLIDING SCALE, IF BLOOD SUGAR IS 150 PT TAKES 14 UNITS, IF IT IS HIGHER THAN THAT 14 UNITS SUBCUTANEOUS SLIDING SCALE, MDD 24 UNITS, NOTES: 06/10/19 TAKING DRISDOL 82048 UNIT CAPSULE 1 CAPSULE ORALLY WEEKLY, NOTES: 06/11/19 AM TAKING MAGNESIUM OXIDE 400 MG TABLET 1 TABLET ORALLY ONCE A DAY, NOTES: 06/11/19 AM TAKING ZONISAMIDE 25 MG CAPSULE 1 CAPSULES ORALLY BEFORE BEDTIME, NOTES: 06/11/19 AM TAKING ASPIR-81 81 MG TABLET DELAYED RELEASE 1 TABLET ORALLY ONCE A DAY, NOTES: 06/03/19 TAKING CALCIUM 600 + D 600-400 MG-UNIT TABLET 1 TABLET ORALLY ONCE A DAY, NOTES: 06/11/19 AM TAKING MAY HAVE - - DIRECTED PATIENT WOULD BENEFIT FROM A DIETETICS TEACHER ANIMAL DUE TO PSHCYOLOGICAL AND CARDIAC ISSUES TAKING EFFEXOR XR 75 MG CAPSULE EXTENDED RELEASE 24 HOUR 1 CAPSULE WITH FOOD ORALLY ONCE A DAY, NOTES: 06/11/19 AM TAKING PLAVIX 75 MG TABLET 1 TABLET ORALLY ONCE A DAY, NOTES: 06/03/19 TAKING ABILIFY MAINTENA 300 MG PREFILLED SYRINGE INTRAMUSCULAR MONTHLY, NOTES: 05/30/19 TAKING ZOFRAN 4 MG TABLET 1 TABLETS ORALLY TWICE A DAY NEEDED FOR NAUSEA/VOMITING, NOTES: 06/11/19 AM TAKING CETIRIZINE HCL 10MG TABLET TAKE ONE TABLET BY MOUTH ONCE DAILY NEEDED , NOTES: 06/11/19 AM TAKING COLACE 100 MG CAPSULE 1 CAPSULE NEEDED ORALLY ONCE A DAY, NOTES: NONE LATELY TAKING LEVEMIR FLEXPEN 100 UNIT/ML SOLUTION 20 UNITS SUBCUTANEOUS TWICE A DAY, NOTES: 06/10/19 TAKING VICTOZA 18 MG/3ML SOLUTION PEN-INJECTOR 1.8 ML SUBCUTANEOUS ONCE A DAY, NOTES: 06/10/19 TAKING AMLODIPINE BESYLATE 2.5 MG TABLET 1 TABLET ORALLY ONCE A DAY, NOTES: 06/11/19 AM TAKING LISINOPRIL 20 MG TABLET 1/2 TABLET ORALLY ONCE A DAY, NOTES: 06/11/19 AM TAKING ACTOS 45MG TABLET 1 TABLET ORALLY ONCE A DAY, NOTES: 06/11/19 AM TAKING HYDROCHLOROTHIAZIDE 25 MG TABLET 1 TABLET IN THE MORNING ORALLY ONCE A DAY, NOTES: 06/11/19 AM TAKING GABAPENTIN 100 MG CAPSULE 2 CAPSULES ORALLY BID, NOTES: 06/11/19 AM TAKING DECONGESTANT - TABLET EXTENDED RELEASE DIRECTED ORALLY , NOTES: NONE LATELY TAKING FLUCONAZOLE 150 MG TABLET 1 TABLET ORALLY DIRECTED, NOTES: 06/11/19 AM TAKING LIDOCAINE-PRILOCAINE 2.5-2.5 % CREAM DIRECTED TO LOW BACK EXTERNALLY TID PRN, NOTES: 06/10/19 TAKING TYLENOL WITH CODEINE #3 300-30 MG TABLET 1 ORALLY Q8H PRN MDD3, NOTES: 06/09/19 TAKING PRAVASTATIN SODIUM 40 MG TABLET 1 TABLET ORALLY ONCE A DAY, NOTES: 06/11/19 TAKING ALBUTEROL SULFATE (2.5 MG/3ML) 0.083% NEBULIZATION SOLUTION 3 ML INHALATION QID PRN, NOTES: NONE LATELY TAKING FENOFIBRATE 48 MG TABLET 1 TABLET ORALLY ONCE A DAY, NOTES: 06/11/19 TAKING PROAIR HFA 108 (90 BASE) MCG/ACT AEROSOL SOLUTION 2 PUFFS NEEDED INHALATION EVERY 6 HRS NEEDED, NOTES: 06/10/19 TAKING METHENAMINE HIPPURATE 1 GM TABLET 1 TABLET ORALLY TWICE A DAY, NOTES: 06/11/19 NOT-TAKING DOXYCYCLINE HYCLATE 100 MG CAPSULE 1 CAPSULE ORALLY TWICE A DAY NOT-TAKING BACID - CAPSULE 2 CAPS ORALLY THREE TIMES DAILY WITH MEALS NOT-TAKING RANITIDINE HCL 150MG CAPSULE 1 CAPSULE ORALLY TWICE A DAY NOT-TAKING VANCOMYCIN HCL 250 MG CAPSULE 1 CAP ORALLY FOUR TIMES DAILY NOT-TAKING ATENOLOL 50 MG TABLET 1 TABLET ORALLY ONCE A DAY NOT-TAKING FLUCONAZOLE 150 MG TABLET 1 TABLET ORALLY DAILY MEDICATION LIST REVIEWED AND RECONCILED WITH THE PATIENT PAST MEDICAL HISTORY HYPERLIPIDEMIA DIABETES MELLITUS - WITH NON-PROLIFERATIVE RETINOPATHY LEFT EYE PER CENTER FOR SIGHT 06/2013. 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 DIFFUSE DISC BULGES AT THE L1-2 AND L3-4 LEVELS WITH MINIMAL THECAL SAC. 2. MINIMAL CENTRAL CANAL STENOSIS AT THE L4-5 LEVEL SECONDARY TO DISC BULGE, - CHRONIC PAIN MANAGEMENT THROUGH [facility]) CKD STAGE 3 C. 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 1 SON(S) , 2 DAUGHTER(S) - HEALTHY. ONE BROTHER FROM CARDIAC COMPLICATION\\\\\\\\NDAUGHTERS HAVE DEPRESSION. SOCIAL HISTORY GENERAL: TOBACCO USE ARE YOU A:FORMER SMOKER HOW LONG HAS IT BEEN SINCE YOU LAST SMOKED?> 10 YEARS HIV / HEP-C SCREENING HIV TEST OFFERED TO PATIENT:YES DATE OFFERED:06/30/2016 TEST ACCEPTED:NO REASON:PATIENT DECLINED BROCHURE PROVIDED TO PATIENTNO OTHERS AT HOME: CHILD DAUGHTER. DIET: NO CONCENTRATED SWEETS., CARBOHYDRATE CONTROLLED, LOW FAT, LOW CHOLESTEROL. LANGUAGE LANGUAGES SPOKEN:GUAMANIAN DOMESTIC VIOLENCE DO YOU FEEL SAFE IN YOUR ENVIRONMENT?YES BMI CARE GOAL FOLLOW-UP ABOVE NORMAL BMI FOLLOW-UPDIETARY MANAGEMENT EDUCATION, GUIDANCE, AND COUNSELING RECREATIONAL DRUG USE DRUG USE?NO EXERCISE: WALKS 1 MILE WEATHER PERMITTING. LEARNING BARRIERS / SPECIAL NEEDS CHANGE FROM LAST VISIT?NO 10/29/2018 BARRIERS TO LEARNING?NO HEARING IMPAIRED?NO VISION IMPAIRED?YES COGNITIVELY IMPAIRED?NO :CORRECTIVE LENSES READINESS TO LEARN?YES LEARNING PREFERENCES?NO LEARNING CAPABILITIES PRESENT?YES EMOTIONAL BARRIERS?NO SPECIAL DEVICES?NO YARD DRIVER NEEDED?NO LUNG CANCER SCREENING SMOKING STATUS:FORMER SMOKER PAIN CLINIC PFS, CLERGY, PUBLIC HEALTH REFERRALS PFS REFERRAL NEEDED?NO CLERGY REFERRAL NEEDED?NO PUBLIC HEALTH REFERRAL NEEDED?NO WAS THE PROVIDER NOTIFIED OF ANY PERTINENT INFO?YES N/A HAS THE PATIENT BEEN EDUCATED REGARDING HIS/HER PLAN OF CARE?YES HAS THE PATIENT BEEN EDUCATED REGARDING PAIN, THE RISK FOR PAIN, THE IMPORTANCE OF EFFECTIVE PAIN MANAGEMENT, AND THE PAIN ASSESSMENT PROCESS?YES LATEX QUESTIONNAIRE LATEX ALLERGY : HAVE YOU EVER DEVELOPED ANY TYPE OF REACTION AFTER HANDLING LATEX PRODUCTS SUCH RUBBER GLOVES, CONDOMS, DIAPHRAGMS, BALLOONS, SOCKS, OR UNDERWEAR?NO LATEX ALLERGY : HAVE YOU EVER DEVELOPED ANY TYPE OF REACTION DURING OR AFTER DENTAL APPOINTMENT, VAGINAL/RECTAL EXAMINATION, SURGICAL PROCEDURE, OR ANY OTHER EXPOSURE?NO DATE ASKED : 04/30/2019 LATEX RISK : HAVE YOU EVER HAD ANY DIFFICULTY BREATHING OR HIVES AFTER EATING OR HANDLING ANY FRUITS, OR VEGETABLES; SUCH KIWI, BANANAS, STONE FRUITS, OR CHESTNUTSNO LATEX RISK : DO YOU HAVE A PREVIOUS PERSONAL HISTORY OF MORE THAN NINE SURGERIES, SPINA BIFIDA, OR REPEATED CATHERIZATIONS? NO LATEX RISK : ARE YOU FREQUENTLY EXPOSED TO LATEX PRODUCTS IN YOUR OCCUPATION?NO CAFFEINE CAFFEINE USE?YES 1CUP COFFEE ADVANCE DIRECTIVE ADVANCE DIRECTIVE DISCUSSED WITH PATIENT:YES PT HAS HCP USMAN ROBERTS [phone] JAIN [id number] MORAVIAN MARITAL STATUS: .. ALCOHOL SCREENING DID YOU HAVE A DRINK CONTAINING ALCOHOL IN THE PAST YEAR?NO POINTS0 INTERPRETATIONNEGATIVE SEXUAL HX HAD SEX IN THE LAST 12 MONTHS (VAGINAL, ORAL, OR ANAL)?NO LMP:02/2016 HAVE YOU EVER HAD AN STD?NO REVIEWED WITH PT 11/13/17 1410 LASREVIEWED WITH PT 12/12/17 1027 LAS07/11/18 REVIEWED WITH PT. ADREVIEWED WITH PT 12/10/18 1025 NLJREVIEWED WITH PATIENT 03/18/19 LASREVIEWED WITH PATIENT 04/30/2019 DS. HOSPITALIZATION/MAJOR DIAGNOSTIC PROCEDURE 3 DAYS FOR TIA 06/2013 SURGERIES REVIEW OF SYSTEMS REVIEWED BY: PROVIDER: . CONSTITUTIONAL: ANY CHANGE IN YOUR MEDICAL CONDITION? NO . CHILLS NO . FEVER NO . INFECTION: DO YOU HAVE NEW INFECTIONS? NO . DO YOU HAVE HISTORY OF MRSA? NO . MUSCULOSKELETAL: ANY NEW PATTERNS OF PAIN OR NUMBNESS? NO . GASTROENTEROLOGY: ANY NEW CHANGE IN BOWEL CONTROL? NO . GENITOURINARY: ANY NEW CHANGE IN BLADDER CONTROL? NO . IS THERE A CHANCE YOU COULD BE ? NO . HEMATOLOGY/LYMPH: DO YOU TAKE ANY BLOOD THINNERS? (FOR EXAMPLE- COUMADIN, PLAVIX, AGGRENOX, PLATEL, PRADAXA, OR XARELTO) YES, PLAVIX 06/03/19 . WHEN WAS YOUR LAST DOSE? DATE: TIME: . NEUROLOGY: HAVE YOU FALLEN IN THE PAST 12 MONTHS? NO . ANY NEW EXTREMITY NUMBNESS OR WEAKNESS? NO . CARDIOLOGY: DO YOU HAVE A PACEMAKER OR DEFIBRILLATOR? YES, PACEMAKER . RESPIRATORY: HAVE YOU BEEN SICK IN THE PAST WEEK? NO . FEVER NO . FLU LIKE SYMPTOMS? NO . COUGH NO . INTEGUMENTARY: DO YOU HAVE ANY RASHES OR OPEN SORES? NO . ALLERGIC/IMMUNO: ARE YOU ALLERGIC TO IV DYE? NO . ANY NEW ALLERGIES? NO . PSYCHIATRIC: DO YOU HAVE THOUGHTS OF HURTING YOURSELF OR SOMEONE ELSE? NO . ARE YOU ABUSED, NEGLECTED, OR IN AN UNSAFE ENVIRONMENT? NO . ENDOCRINOLOGY: ARE YOU DIABETIC? YES, FS 155 TODAY AT HOME @ 0700 . OTHER: DO YOU NEED ANY PRESCRIPTIONS? NO . IF YES, PLEASE LIST: ____ . ANY NEW PROBLEMS WITH YOUR MEDICATIONS? NO . WHEN DID YOU LAST EAT? 06/11/19 0700 . WHEN DID YOU LAST DRINK? 06/11/19 1100 . WHAT DID YOU LAST DRINK? WATER . NAME OF PERSON DRIVING YOU HOME? [employer] . DO YOU HAVE ANY OTHER QUESTIONS OR CONCERNS NO . VITAL SIGNS WT 240.2 LBS, HT 64.25 IN, BMI 40.91 INDEX, BP 143/69 MM HG, HR 90 /MIN, RR 18 /MIN, TEMP 97.8 F, OXYGEN SAT % 97%, NA INITIALS AW 1322. ASSESSMENTS SACROILIITIS - M46.1 (PRIMARY) TREATMENT SACROILIITIS [facility] FLUORO GUIDANCE (PAIN) PROCEDURES PN SI PRE PROCEDURE DIAGNOSIS SACROILIITIS, SACROILIAC JOINT DYSFUNCTION POST PROCEDURE DIAGNOSIS SACROILIITIS, SACROILIAC JOINT DYSFUNCTION PROCEDURE BILATERAL SACROILIAC JOINT BLOCK SURGEON DR. PANDA SO RN MEDICAL INPATIENT SERVICES NONE ANESTHESIA LOCAL PRE PROCEDURE NOTE PATIENT WITH HISTORY OF CHRONIC LOW BACK PAIN. I EVALUATED THE PATIENT AND REVIEWED THE CHART. I WENT OVER THE RISKS, ALTERNATIVES, AND BENEFITS ASSOCIATED WITH THIS PROCEDURE. THE PATIENT WOULD LIKE TO PROCEED AND GAVE CONSENT TO PERFORM THE PROCEDURE. THE PATIENT DENIES UNEXPLAINABLE WEIGHT LOSS, FEVER, CHILLS, OR NEW CHANGES IN URINARY OR BOWEL CONTROL DESCRIPTION OF PROCEDURE THE PATIENT WAS BROUGHT TO THE PROCEDURE ROOM AND PLACED IN THE PRONE POSITION. THE LUMBOSACRAL AREA WAS CLEANED WITH CHLORAPREP SOLUTION AND DRAPED ASEPTICALLY. THE PROCEDURE WAS DONE UNDER STERILE CONDITIONS. I CHECKED LATERALITY AND THE LEVEL WHERE THE PROCEDURE WAS GOING TO BE PERFORMED WITH THE PATIENT AND THE SUPPORTING STAFF AT THE MOMENT OF THE TIME OUT IN THE PROCEDURE ROOM. UNDER FLUOROSCOPIC GUIDANCE, TARGET POINT WAS SELECTED AT THE LOWER BORDER OF THE RIGHT AND LEFT SACROILIAC JOINT. TARGET POINT WAS SELECTED AFTER MEDIAL ROTATION AND TILT OF THE MAGNIFIER OF THE C-ARM. LIDOCAINE WAS USED TO NUMB THE SKIN AND SUBCUTANEOUS TISSUE BELOW IT. A SPINAL NEEDLE, 22-GAUGE, WAS ADVANCED UNDER FLUOROSCOPIC GUIDANCE AND FOLLOWING PATIENT FEEDBACK UNTIL THE TARGET AREA WAS TOUCHED. THE POSITION OF THE NEEDLE WAS VERIFIED WITH AP AND LATERAL VIEWS. AFTER PROPER POSITION OF THE NEEDLE WAS ACHIEVED, ISOVUE M DYE 30%, 0.25 ML, WAS INJECTED SHOWING SPREAD OF THE DYE. THEN, A SOLUTION OF 20 MG OF KENALOG WAS INJECTED IN RIGHT JOINT WITH 3 ML OF BUPIVACAINE 0.125%. THERE WAS NO EVIDENCE OF BLOOD, PARESTHESIA OR CEREBROSPINAL FLUID DURING THE PROCEDURE. THE PATIENT WAS SENT TO THE RECOVERY ROOM. THE PATIENT WAS MOVING THE EXTREMITIES AND DOING WELL. THERE WAS NO COMPLICATION DURING THE PROCEDURE. FLUOROSCOPY TIME WAS 34 SECONDS POST PROCEDURE NOTE THE PATIENT WILL BE SEEN IN A FOLLOW UP IN THE NEXT FEW WEEKS. I AM LOOKING FOR LONG LASTING PAIN RELIEF FOR THE PATIENT WITH THIS INJECTION. INSTRUCTIONS WERE GIVEN, QUESTIONS WERE ANSWERED, AND THE PATIENT EXPRESSED UNDERSTANDING AND AGREED WITH THE PLAN. I, BRITT EVERETT, DOCUMENTED THE ABOVE INFORMATION ACTING A SCRIBE FOR DR. SO. I HAVE REVIEWED THE ABOVE DOCUMENT, WRITTEN BY BRITT EVERETT SCRIBPeter AND I VERIFY THAT IT IS ACCURATE. PROCEDURE CODES 60090 INJECT SACROILIAC JOINT, MODIFIERS: 50 [id number] RADXPS IN END [id number] PXD DISPOSITION & COMMUNICATION FOLLOW UP 3 WEEKS ELECTRONICALLY SIGNED BY PANDA SO MD, MD ON 06/20/2019 AT 12:37 PM EDT DISCLAIMER : THIS IS A VISIT SUMMARY EXTRACTED FROM THE [employer] CHART. IT IS NOT A COPY OF THE [employer] PROGRESS NOTE. MARYLOU
== END ==
LOC: M PAIN 13:30
PROVIDERS: ATTEND Anesthesiology
DX: M46.1 Sacroiliitis, not elsewhere classified (principal)
CPT/HCPCS: G0260; J3301; Q9967

== ENCOUNTER → 2019-07-08 | Outpatient (CLI) | payer OTHER, MEDICAID ==
[~2019-07-08] MED LIST changes: -BUPIVACAINE HCL 0.25% 30 ML VIAL As Ordered ONE; -ISOVUE-M 300 61% 15ML VIAL (Q9967) As Ordered ONE; -LIDOCAINE 1% SDV INJ 30 ML VIAL As Ordered ONE; -TRIAMCINOLONE ACETONIDE SUSP 40 MG/ML VIAL (J3301) As Ordered ONE; -diazePAM 5 MG TAB As Ordered ONE; -oxyCODONE 5MG TAB As Ordered ONE
--- NOTE | 2019-07-09 04:10 | ECWPNPC ---
PATIENT NAME: PRUDENCIO SHAHID : 1965 GENDER: FEMALE VISIT DATE: 07/08/2019 DISCHARGE DATE: 07/08/19 1604 VISIT LOCKED DATE TIME: PHYSICIAN: YULISSA STAUFFER RESOURCE: YULISSA STAUFFER REASON FOR APPOINTMENT 1. POST SIJ HISTORY OF PRESENT ILLNESS HISTORY OF PRESENT ILLNESS: PHONE CALL TO PATIENT WHO IS AGREEABLE TO TELEPHONE VISIT TODAY. HAD BILATERAL SIJ INJECTION ON 06/11/2019. REPORTING MARKED REDUCTION IN PAIN IN THAT REGION THAT CONTINUES TODAY. CHIEF AREA OF PAIN IS MID BACK. PAIN IN THAT AREA IS AGGRAVATED BY BENDING OR LIFTING. DISCUSSED MEDICATION AND TREATMENT OPTIONS. USES TYLENOL WITH CODEINE PERIODICALLY FOR SEVERE PAIN EPISODES WHICH IS HELPFUL. RATING PAIN VAS 0/10. PAIN THE PATIENT DESCRIBES THE PAIN... FALL RISK SCREENING: SCREENING :NO FALLS REPORTED IN THE LAST YEAR CURRENT MEDICATIONS TAKING HUMALOG 100 UNIT/ML SOLUTION SLIDING SCALE, IF BLOOD SUGAR IS 150 PT TAKES 14 UNITS, IF IT IS HIGHER THAN THAT 14 UNITS SUBCUTANEOUS SLIDING SCALE, MDD 24 UNITS TAKING DRISDOL 28580 UNIT CAPSULE 1 CAPSULE ORALLY WEEKLY TAKING MAGNESIUM OXIDE 400 MG TABLET 1 TABLET ORALLY ONCE A DAY TAKING ZONISAMIDE 25 MG CAPSULE 1 CAPSULES ORALLY BEFORE BEDTIME TAKING ASPIR-81 81 MG TABLET DELAYED RELEASE 1 TABLET ORALLY ONCE A DAY TAKING CALCIUM 600 + D 600-400 MG-UNIT TABLET 1 TABLET ORALLY ONCE A DAY TAKING MAY HAVE - - DIRECTED PATIENT WOULD BENEFIT FROM A CUP SETTER LOCKSTITCH ANIMAL DUE TO PSHCYOLOGICAL AND CARDIAC ISSUES TAKING EFFEXOR XR 75 MG CAPSULE EXTENDED RELEASE 24 HOUR 1 CAPSULE WITH FOOD ORALLY ONCE A DAY TAKING PLAVIX 75 MG TABLET 1 TABLET ORALLY ONCE A DAY TAKING ABILIFY MAINTENA 300 MG PREFILLED SYRINGE INTRAMUSCULAR MONTHLY TAKING ZOFRAN 4 MG TABLET 1 TABLETS ORALLY TWICE A DAY NEEDED FOR NAUSEA/VOMITING TAKING CETIRIZINE HCL 10MG TABLET TAKE ONE TABLET BY MOUTH ONCE DAILY NEEDED TAKING COLACE 100 MG CAPSULE 1 CAPSULE NEEDED ORALLY ONCE A DAY TAKING LEVEMIR FLEXPEN 100 UNIT/ML SOLUTION 20 UNITS SUBCUTANEOUS TWICE A DAY TAKING VICTOZA 18 MG/3ML SOLUTION PEN-INJECTOR 1.8 ML SUBCUTANEOUS ONCE A DAY TAKING AMLODIPINE BESYLATE 2.5 MG TABLET 1 TABLET ORALLY ONCE A DAY TAKING LISINOPRIL 20 MG TABLET 1/2 TABLET ORALLY ONCE A DAY TAKING ACTOS 45MG TABLET 1 TABLET ORALLY ONCE A DAY TAKING HYDROCHLOROTHIAZIDE 25 MG TABLET 1 TABLET IN THE MORNING ORALLY ONCE A DAY TAKING GABAPENTIN 100 MG CAPSULE 2 CAPSULES ORALLY BID TAKING DECONGESTANT - TABLET EXTENDED RELEASE DIRECTED ORALLY TAKING LIDOCAINE-PRILOCAINE 2.5-2.5 % CREAM DIRECTED TO LOW BACK EXTERNALLY TID PRN TAKING TYLENOL WITH CODEINE #3 300-30 MG TABLET 1 ORALLY Q8H PRN MDD3 TAKING PRAVASTATIN SODIUM 40 MG TABLET 1 TABLET ORALLY ONCE A DAY TAKING ALBUTEROL SULFATE (2.5 MG/3ML) 0.083% NEBULIZATION SOLUTION 3 ML INHALATION QID PRN TAKING FENOFIBRATE 48 MG TABLET 1 TABLET ORALLY ONCE A DAY TAKING PROAIR HFA 108 (90 BASE) MCG/ACT AEROSOL SOLUTION 2 PUFFS NEEDED INHALATION EVERY 6 HRS NEEDED TAKING METHENAMINE HIPPURATE 1 GM TABLET 1 TABLET ORALLY TWICE A DAY NOT-TAKING FLUCONAZOLE 150 MG TABLET 1 TABLET ORALLY DIRECTED NOT-TAKING DOXYCYCLINE HYCLATE 100 MG CAPSULE 1 CAPSULE ORALLY TWICE A DAY NOT-TAKING BACID - CAPSULE 2 CAPS ORALLY THREE TIMES DAILY WITH MEALS NOT-TAKING RANITIDINE HCL 150MG CAPSULE 1 CAPSULE ORALLY TWICE A DAY NOT-TAKING VANCOMYCIN HCL 250 MG CAPSULE 1 CAP ORALLY FOUR TIMES DAILY NOT-TAKING ATENOLOL 50 MG TABLET 1 TABLET ORALLY ONCE A DAY NOT-TAKING FLUCONAZOLE 150 MG TABLET 1 TABLET ORALLY DAILY MEDICATION LIST REVIEWED AND RECONCILED WITH THE PATIENT PAST MEDICAL HISTORY HYPERLIPIDEMIA DIABETES MELLITUS - WITH NON-PROLIFERATIVE RETINOPATHY LEFT EYE PER CENTER FOR SIGHT 06/2013. 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 DIFFUSE DISC BULGES AT THE L1-2 AND L3-4 LEVELS WITH MINIMAL THECAL SAC. 2. MINIMAL CENTRAL CANAL STENOSIS AT THE L4-5 LEVEL SECONDARY TO DISC BULGE, - CHRONIC PAIN MANAGEMENT THROUGH DR. SO [facility]) CKD STAGE 3 C. 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 1 SON(S) , 2 DAUGHTER(S) - HEALTHY. ONE BROTHER FROM CARDIAC COMPLICATION\\\\\\\\NDAUGHTERS HAVE DEPRESSION. SOCIAL HISTORY GENERAL: TOBACCO USE ARE YOU A:FORMER SMOKER HOW LONG HAS IT BEEN SINCE YOU LAST SMOKED?> 10 YEARS HIV / HEP-C SCREENING HIV TEST OFFERED TO PATIENT:YES DATE OFFERED:06/30/2016 TEST ACCEPTED:NO REASON:PATIENT DECLINED BROCHURE PROVIDED TO PATIENTNO OTHERS AT HOME: CHILD DAUGHTER. DIET: NO CONCENTRATED SWEETS., CARBOHYDRATE CONTROLLED, LOW FAT, LOW CHOLESTEROL. LANGUAGE LANGUAGES SPOKEN:SYRIAC DOMESTIC VIOLENCE DO YOU FEEL SAFE IN YOUR ENVIRONMENT?YES NEW PATIENT PAIN DIARY TODAY'S VISITNOTES 07/08/2019 FROM 0-10, WHAT LEVEL IS YOUR PAIN TODAY?0 BMI CARE GOAL FOLLOW-UP ABOVE NORMAL BMI FOLLOW-UPDIETARY MANAGEMENT EDUCATION, GUIDANCE, AND COUNSELING RECREATIONAL DRUG USE DRUG USE?NO EXERCISE: WALKS 1 MILE WEATHER PERMITTING. LEARNING BARRIERS / SPECIAL NEEDS CHANGE FROM LAST VISIT?NO 10/29/2018 BARRIERS TO LEARNING?NO HEARING IMPAIRED?NO VISION IMPAIRED?YES COGNITIVELY IMPAIRED?NO :CORRECTIVE LENSES READINESS TO LEARN?YES LEARNING PREFERENCES?NO LEARNING CAPABILITIES PRESENT?YES EMOTIONAL BARRIERS?NO SPECIAL DEVICES?NO PLASTIC HOSPITAL PRODUCTS ASSEMBLER NEEDED?NO LUNG CANCER SCREENING SMOKING STATUS:FORMER SMOKER PAIN CLINIC PFS, CLERGY, PUBLIC HEALTH REFERRALS PFS REFERRAL NEEDED?NO CLERGY REFERRAL NEEDED?NO PUBLIC HEALTH REFERRAL NEEDED?NO WAS THE PROVIDER NOTIFIED OF ANY PERTINENT INFO?YES N/A HAS THE PATIENT BEEN EDUCATED REGARDING HIS/HER PLAN OF CARE?YES HAS THE PATIENT BEEN EDUCATED REGARDING PAIN, THE RISK FOR PAIN, THE IMPORTANCE OF EFFECTIVE PAIN MANAGEMENT, AND THE PAIN ASSESSMENT PROCESS?YES LATEX QUESTIONNAIRE LATEX ALLERGY : HAVE YOU EVER DEVELOPED ANY TYPE OF REACTION AFTER HANDLING LATEX PRODUCTS SUCH RUBBER GLOVES, CONDOMS, DIAPHRAGMS, BALLOONS, SOCKS, OR UNDERWEAR?NO LATEX ALLERGY : HAVE YOU EVER DEVELOPED ANY TYPE OF REACTION DURING OR AFTER DENTAL APPOINTMENT, VAGINAL/RECTAL EXAMINATION, SURGICAL PROCEDURE, OR ANY OTHER EXPOSURE?NO LATEX RISK : HAVE YOU EVER HAD ANY DIFFICULTY BREATHING OR HIVES AFTER EATING OR HANDLING ANY FRUITS, OR VEGETABLES; SUCH KIWI, BANANAS, STONE FRUITS, OR CHESTNUTSNO LATEX RISK : DO YOU HAVE A PREVIOUS PERSONAL HISTORY OF MORE THAN NINE SURGERIES, SPINA BIFIDA, OR REPEATED CATHERIZATIONS? NO LATEX RISK : ARE YOU FREQUENTLY EXPOSED TO LATEX PRODUCTS IN YOUR OCCUPATION?NO DATE ASKED : 04/30/2019 CAFFEINE CAFFEINE USE?YES 1CUP COFFEE ADVANCE DIRECTIVE ADVANCE DIRECTIVE DISCUSSED WITH PATIENT:YES PT HAS HCP USMAN ARMANDO [phone] [facility] [id number] MANDAEN MARITAL STATUS: .. ALCOHOL SCREENING DID YOU HAVE A DRINK CONTAINING ALCOHOL IN THE PAST YEAR?NO POINTS0 INTERPRETATIONNEGATIVE SEXUAL HX HAD SEX IN THE LAST 12 MONTHS (VAGINAL, ORAL, OR ANAL)?NO LMP:02/2016 HAVE YOU EVER HAD AN STD?NO HOSPITALIZATION/MAJOR DIAGNOSTIC PROCEDURE 3 DAYS FOR TIA 06/2013 SURGERIES REVIEW OF SYSTEMS REVIEWED BY: PROVIDER: YULISSA RASHID . CONSTITUTIONAL: ANY CHANGE IN YOUR MEDICAL CONDITION? NO . CHILLS NO . FEVER NO . INFECTION: DO YOU HAVE NEW INFECTIONS? NO . DO YOU HAVE HISTORY OF MRSA? NO . MUSCULOSKELETAL: ANY NEW PATTERNS OF PAIN OR NUMBNESS? NO . GASTROENTEROLOGY: ANY NEW CHANGE IN BOWEL CONTROL? NO . GENITOURINARY: ANY NEW CHANGE IN BLADDER CONTROL? NO . IS THERE A CHANCE YOU COULD BE ? NO . HEMATOLOGY/LYMPH: DO YOU TAKE ANY BLOOD THINNERS? (FOR EXAMPLE- COUMADIN, PLAVIX, AGGRENOX, PLATEL, PRADAXA, OR XARELTO) YES, PLAVIX . WHEN WAS YOUR LAST DOSE? DATE: 07/07/2019TIME: AM . NEUROLOGY: HAVE YOU FALLEN IN THE PAST 12 MONTHS? YES, STATES FALL IN FEBRUARY, DISCUSSED AT PREVIOUS VISIT . ANY NEW EXTREMITY NUMBNESS OR WEAKNESS? NO . CARDIOLOGY: DO YOU HAVE A PACEMAKER OR DEFIBRILLATOR? YES, PACEMAKER . RESPIRATORY: HAVE YOU BEEN SICK IN THE PAST WEEK? YES - DIARRHEA CURRENTLY, STARTED TODAY . FEVER NO . FLU LIKE SYMPTOMS? NO . COUGH YES - STATES FROM ALLERGIES . INTEGUMENTARY: DO YOU HAVE ANY RASHES OR OPEN SORES? NO . ALLERGIC/IMMUNO: ARE YOU ALLERGIC TO IV DYE? NO . ANY NEW ALLERGIES? NO . PSYCHIATRIC: DO YOU HAVE THOUGHTS OF HURTING YOURSELF OR SOMEONE ELSE? NO . ARE YOU ABUSED, NEGLECTED, OR IN AN UNSAFE ENVIRONMENT? NO . ENDOCRINOLOGY: ARE YOU DIABETIC? YES . OTHER: DO YOU NEED ANY PRESCRIPTIONS? YES . IF YES, PLEASE LIST: ____TYLENOL #3 W/ CODEINE, GABAPENTIN, LIDOCAINE CREAM . ANY NEW PROBLEMS WITH YOUR MEDICATIONS? NO . WHEN DID YOU LAST EAT? ____ . WHEN DID YOU LAST DRINK? ____ . WHAT DID YOU LAST DRINK? ____ . NAME OF PERSON DRIVING YOU HOME? ____ . DO YOU HAVE ANY OTHER QUESTIONS OR CONCERNS YES, STATES SHE HAD BACK SURGERY IN 1999 - STATES THE BOTTOM OF THE SCAR IS VERY PAINFUL RECENTLY AND WOULD LIKE TO DISCUSS . ASSESSMENTS SACROILIITIS - M46.1 (PRIMARY) TREATMENT SACROILIITIS REFILL TYLENOL WITH CODEINE #3 TABLET, 300-30 MG, 1, ORALLY, Q8H PRN MDD3, 30 DAYS, 45, REFILLS 0 NOTES: WE WILL EVALUATE IN 6-8 WEEKS IN REGARDS TO THORACIC BACK PAIN. TIME SPENT DURING THIS TELEPHONE ENCOUNTER WAS APPROXIMATELY 11 MINUTES. OTHERS NOTES: VITALS NOT OBTAINED DUE TO PHONE VISIT. DISPOSITION & COMMUNICATION FOLLOW UP 6-8 WEEKS (REASON: THORACIC/LBP) ELECTRONICALLY SIGNED BY GAY CEDEÑO ON 07/08/2019 AT 12:04 PM EDT DISCLAIMER : THIS IS A VISIT SUMMARY EXTRACTED FROM THE [employer] CHART. IT IS NOT A COPY OF THE [employer] PROGRESS NOTE. [facility]
== END ==
LOC: M PAIN 11:30
PROVIDERS: ATTEND Nurse Practitioner Family
DX: M46.1 Sacroiliitis, not elsewhere classified (principal)

== ENCOUNTER → 2019-08-02 | Outpatient (REF) | payer OTHER, MEDICAID | LOC: M SFHCADAM 15:31 | PROVIDERS: ATTEND Physician Assistant | DX: R19.7 Diarrhea, unspecified (principal) ==

== ENCOUNTER → 2019-08-29 | Outpatient (CLI) | payer OTHER, MEDICAID ==
[~2019-08-29] MED LIST changes: +ACET300T52 PO; +AMLO2.5T3 PO; +DIGESTIVE HEALTH PO; +[UNRECOGNIZED DRUG - CODE] PO
--- NOTE | 2019-08-31 01:56 | ECWPNPC ---
PATIENT NAME: PRUDENCIO SHAHID : 1965 GENDER: FEMALE VISIT DATE: 08/29/2019 DISCHARGE DATE: 08/29/19 1212 VISIT LOCKED DATE TIME: PHYSICIAN: YULISSA STAUFFER RESOURCE: YULISSA STAUFFER REASON FOR APPOINTMENT 1. THORACIC/LBP HISTORY OF PRESENT ILLNESS GENERAL: HERE FOR FOLLOW-UP OF GENERALIZED BACK PAIN. HISTORY OF EXTENSIVE THORACIC SURGERY. CHIEF AREA OF PAIN IS MID THORACIC AND NECK. PAIN IS AGGRAVATED IN THESE REGIONS WITH USING HER ARMS OR RANGE OF JOINT MOTION OF THE NECK. CURRENT MEDICATIONS FOR PAIN AREN'T VERY HELPFUL IN THOSE AREAS. CONTINUES TO SUFFER FROM CHRONIC LOW BACK PAIN, BUT THIS IS NOT BAD THORACIC AND NECK AREA. DISCUSSED MEDICATION AND TREATMENT PLAN. -. FALL RISK SCREENING: SCREENING :ONE FALL WITH INJURY IN THE PAST YEAR PAIN SCREENING: PATIENT HAS A COMPLAINT OF ACUTE OR CHRONIC PAIN :YES 08/29/19 INTENSITY OF PAIN (SCALE OF 1 TO 10):7 WHAT DOES YOUR PAIN FEEL LIKE:CONTINOUS, TENDER, THROBBING PAIN IS INCREASED BY: REACHING, PULLING, AND HAND ARM ACTIVITY PAIN IS DECREASED BY: TAKING BRA OFF AND LYING DOWN NURSING NOTE: -. PAIN CENTER INTAKE QUESTIONS: DO YOU HAVE A HISTORY OF MRSA? :NO DO YOU TAKE A BLOOD THINNERS? :YES PLAVIX DO YOU HAVE ANY BLEEDING DISORDERS? :NO ANY NEW NUMBNESS OR WEAKNESS IN YOUR LEGS OR ARMS? :NO ANY PACEMAKER,DEFIBRILLATOR, OR DORSAL COLUMN STIMULATOR? :YES PACEMAKER DO YOU HAVE ANY RASHES OR OPEN SORES? :NO ARE YOU ALLERGIC TO IV DYE? :NO ARE YOU DIABETIC? :YES ANY NEW PROBLEMS WITH YOUR MEDICATIONS? :NO HAVE YOU RECEIVED A VACCINE IN THE PAST 30 DAYS? :NO DO YOU PLAN TO RECEIVE A VACCINE IN THE NEXT 21 DAYS? :NO DO YOU NEED ANY PRESCRIPTION? :NO DO YOU TAKE ANY IMMUNOSUPPRESSIVE MEDICATIONS? :NO CURRENT MEDICATIONS TAKING HUMALOG 100 UNIT/ML SOLUTION SLIDING SCALE, IF BLOOD SUGAR IS 150 PT TAKES 14 UNITS, IF IT IS HIGHER THAN THAT 14 UNITS SUBCUTANEOUS SLIDING SCALE, MDD 24 UNITS TAKING DRISDOL 59075 UNIT CAPSULE 1 CAPSULE ORALLY WEEKLY TAKING MAGNESIUM OXIDE 400 MG TABLET 1 TABLET ORALLY ONCE A DAY TAKING ZONISAMIDE 25 MG CAPSULE 1 CAPSULES ORALLY BEFORE BEDTIME TAKING ASPIR-81 81 MG TABLET DELAYED RELEASE 1 TABLET ORALLY ONCE A DAY TAKING CALCIUM 600 + D 600-400 MG-UNIT TABLET 1 TABLET ORALLY ONCE A DAY TAKING MAY HAVE - - DIRECTED PATIENT WOULD BENEFIT FROM A WATCH HAIRSPRING ASSEMBLER ANIMAL DUE TO PSHCYOLOGICAL AND CARDIAC ISSUES TAKING EFFEXOR XR 75 MG CAPSULE EXTENDED RELEASE 24 HOUR 1 CAPSULE WITH FOOD ORALLY ONCE A DAY TAKING PLAVIX 75 MG TABLET 1 TABLET ORALLY ONCE A DAY TAKING ABILIFY MAINTENA 300 MG PREFILLED SYRINGE INTRAMUSCULAR MONTHLY TAKING ZOFRAN 4 MG TABLET 1 TABLETS ORALLY TWICE A DAY NEEDED FOR NAUSEA/VOMITING TAKING CETIRIZINE HCL 10MG TABLET TAKE ONE TABLET BY MOUTH ONCE DAILY NEEDED TAKING COLACE 100 MG CAPSULE 1 CAPSULE NEEDED ORALLY ONCE A DAY TAKING LEVEMIR FLEXPEN 100 UNIT/ML SOLUTION 20 UNITS SUBCUTANEOUS TWICE A DAY TAKING VICTOZA 18 MG/3ML SOLUTION PEN-INJECTOR 1.8 ML SUBCUTANEOUS ONCE A DAY TAKING LISINOPRIL 20 MG TABLET 1/2 TABLET ORALLY ONCE A DAY TAKING HYDROCHLOROTHIAZIDE 25 MG TABLET 1 TABLET IN THE MORNING ORALLY ONCE A DAY TAKING DECONGESTANT - TABLET EXTENDED RELEASE DIRECTED ORALLY TAKING LIDOCAINE-PRILOCAINE 2.5-2.5 % CREAM DIRECTED TO LOW BACK EXTERNALLY TID PRN TAKING PRAVASTATIN SODIUM 40 MG TABLET 1 TABLET ORALLY ONCE A DAY TAKING ALBUTEROL SULFATE (2.5 MG/3ML) 0.083% NEBULIZATION SOLUTION 3 ML INHALATION QID PRN TAKING FENOFIBRATE 48 MG TABLET 1 TABLET ORALLY ONCE A DAY TAKING PROAIR HFA 108 (90 BASE) MCG/ACT AEROSOL SOLUTION 2 PUFFS NEEDED INHALATION EVERY 6 HRS NEEDED TAKING METHENAMINE HIPPURATE 1 GM TABLET 1 TABLET ORALLY TWICE A DAY TAKING TYLENOL WITH CODEINE #3 300-30 MG TABLET 1 ORALLY Q8H PRN MDD3 TAKING FLUCONAZOLE 150 MG TABLET 1 TABLET ORALLY DIRECTED TAKING BACID - CAPSULE 2 CAPS ORALLY THREE TIMES DAILY WITH MEALS TAKING ACTOS 45MG TABLET 1 TABLET ORALLY ONCE A DAY TAKING AMLODIPINE BESYLATE 2.5 MG TABLET 1 TABLET ORALLY ONCE A DAY TAKING GABAPENTIN 100 MG CAPSULE 2 CAPSULES ORALLY BID NOT-TAKING AMOXICILLIN 875 MG TABLET 1 TABLET ORALLY EVERY 12 HRS NOT-TAKING VANCOMYCIN HCL 125 MG CAPSULE 1 CAPSULE ORALLY EVERY 12 HOURS NOT-TAKING VANCOMYCIN HCL 250 MG CAPSULE 1 CAP ORALLY FOUR TIMES DAILY MEDICATION LIST REVIEWED AND RECONCILED WITH THE PATIENT PAST MEDICAL HISTORY HYPERLIPIDEMIA DIABETES MELLITUS - WITH NON-PROLIFERATIVE RETINOPATHY LEFT EYE PER CENTER FOR SIGHT 06/2013. 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 DIFFUSE DISC BULGES AT THE L1-2 AND L3-4 LEVELS WITH MINIMAL THECAL SAC. 2. MINIMAL CENTRAL CANAL STENOSIS AT THE L4-5 LEVEL SECONDARY TO DISC BULGE, - CHRONIC PAIN MANAGEMENT THROUGH [facility]) CKD STAGE 3 C. 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 1 SON(S) , 2 DAUGHTER(S) - HEALTHY. ONE BROTHER FROM CARDIAC COMPLICATION\\\\\\\\NDAUGHTERS HAVE DEPRESSION. SOCIAL HISTORY GENERAL: TOBACCO USE ARE YOU A:FORMER SMOKER HOW LONG HAS IT BEEN SINCE YOU LAST SMOKED?> 10 YEARS LATEX QUESTIONNAIRE LATEX ALLERGY : HAVE YOU EVER DEVELOPED ANY TYPE OF REACTION AFTER HANDLING LATEX PRODUCTS SUCH RUBBER GLOVES, CONDOMS, DIAPHRAGMS, BALLOONS, SOCKS, OR UNDERWEAR?NO LATEX ALLERGY : HAVE YOU EVER DEVELOPED ANY TYPE OF REACTION DURING OR AFTER DENTAL APPOINTMENT, VAGINAL/RECTAL EXAMINATION, SURGICAL PROCEDURE, OR ANY OTHER EXPOSURE?NO DATE ASKED : 04/30/2019 LATEX RISK : HAVE YOU EVER HAD ANY DIFFICULTY BREATHING OR HIVES AFTER EATING OR HANDLING ANY FRUITS, OR VEGETABLES; SUCH KIWI, BANANAS, STONE FRUITS, OR CHESTNUTSNO LATEX RISK : DO YOU HAVE A PREVIOUS PERSONAL HISTORY OF MORE THAN NINE SURGERIES, SPINA BIFIDA, OR REPEATED CATHERIZATIONS? NO LATEX RISK : ARE YOU FREQUENTLY EXPOSED TO LATEX PRODUCTS IN YOUR OCCUPATION?NO LUNG CANCER SCREENING SMOKING STATUS:FORMER SMOKER BMI CARE GOAL FOLLOW-UP ABOVE NORMAL BMI FOLLOW-UPDIETARY MANAGEMENT EDUCATION, GUIDANCE, AND COUNSELING ALCOHOL SCREENING DID YOU HAVE A DRINK CONTAINING ALCOHOL IN THE PAST YEAR?NO POINTS0 INTERPRETATIONNEGATIVE RECREATIONAL DRUG USE DRUG USE?NO CAFFEINE CAFFEINE USE?YES 1CUP COFFEE SEXUAL HX HAD SEX IN THE LAST 12 MONTHS (VAGINAL, ORAL, OR ANAL)?NO LMP:02/2016 HAVE YOU EVER HAD AN STD?NO HIV / HEP-C SCREENING HIV TEST OFFERED TO PATIENT:YES DATE OFFERED:06/30/2016 TEST ACCEPTED:NO REASON:PATIENT DECLINED BROCHURE PROVIDED TO PATIENTNO AMISH [id number] ZOROASTRIANISM LANGUAGE LANGUAGES SPOKEN:CHINESE LEARNING BARRIERS / SPECIAL NEEDS CHANGE FROM LAST VISIT?NO 10/29/2018 BARRIERS TO LEARNING?NO HEARING IMPAIRED?NO VISION IMPAIRED?YES COGNITIVELY IMPAIRED?NO :CORRECTIVE LENSES READINESS TO LEARN?YES LEARNING PREFERENCES?NO LEARNING CAPABILITIES PRESENT?YES EMOTIONAL BARRIERS?NO SPECIAL DEVICES?NO AUTOMOTIVE PROJECT ENGINEER NEEDED?NO DOMESTIC VIOLENCE DO YOU FEEL SAFE IN YOUR ENVIRONMENT?YES DIET: NO CONCENTRATED SWEETS., CARBOHYDRATE CONTROLLED, LOW FAT, LOW CHOLESTEROL. EXERCISE: WALKS 1 MILE WEATHER PERMITTING. MARITAL STATUS: .. OTHERS AT HOME: CHILD DAUGHTER. NEW PATIENT PAIN DIARY TODAY'S VISITNOTES 07/08/2019 FROM 0-10, WHAT LEVEL IS YOUR PAIN TODAY?0 PAIN CLINIC PFS, CLERGY, PUBLIC HEALTH REFERRALS PFS REFERRAL NEEDED?NO CLERGY REFERRAL NEEDED?NO PUBLIC HEALTH REFERRAL NEEDED?NO WAS THE PROVIDER NOTIFIED OF ANY PERTINENT INFO?YES N/A HAS THE PATIENT BEEN EDUCATED REGARDING HIS/HER PLAN OF CARE?YES HAS THE PATIENT BEEN EDUCATED REGARDING PAIN, THE RISK FOR PAIN, THE IMPORTANCE OF EFFECTIVE PAIN MANAGEMENT, AND THE PAIN ASSESSMENT PROCESS?YES ADVANCE DIRECTIVE ADVANCE DIRECTIVE DISCUSSED WITH PATIENT:YES PT HAS HCP USMAN ROBERTS [phone] HOSPITALIZATION/MAJOR DIAGNOSTIC PROCEDURE 3 DAYS FOR TIA 06/2013 SURGERIES REVIEW OF SYSTEMS CONSTITUTIONAL: ANY RECENT FEVER OR ILLNESS NO . CHILLS NO . GASTROENTEROLOGY: BOWEL INCONTINENCE NO . ANY NEW CHANGE IN BOWEL CONTROL? NO . ABDOMINAL PAIN NO . CONSTIPATION NO . GENITOURINARY: ANY NEW CHANGE IN BLADDER CONTROL? NO . IS THERE A CHANCE YOU COULD BE ? NO . URINARY INCONTINENCE NO . CARDIOLOGY: CHEST PRESSURE NO . CHEST PAIN NO . RESPIRATORY: COUGH NO . SHORTNESS OF BREATH NO . VITAL SIGNS WT 249.9 LBS, HT 64.25 IN, BMI 42.56 INDEX, BP 137/76 MM HG, HR 85 /MIN, RR 18 /MIN, TEMP 98.2 F, OXYGEN SAT % 98%, NA INITIALS AW 1118. EXAMINATION GENERAL EXAMINATION: GENERALNO ACUTE DISTRESS, WELL NOURISHED AND HYDRATED. PSYCHAPPROPRIATE MOOD AND AFFECT . LUNGS:CLEAR TO AUSCULTATION BILATERALLY, NO WHEEZES, RHONCHI, RALES. HEART:NO MURMURS, REGULAR RATE AND RHYTHM. MUSCULOSKELETAL: TRIGGER POINTS:, ELICITED OVER MID THORACIC AND UPPER BACK/CERVICAL REGIONRESTRICTION OF ROM IS NOTED.. ASSESSMENTS CHRONIC MIDLINE THORACIC BACK PAIN - M54.6 (PRIMARY) MYALGIA, OTHER SITE - M79.18 CERVICALGIA - M54.2 TREATMENT CHRONIC MIDLINE THORACIC BACK PAIN NOTES: PT 2 TIMES A WEEK 6 WEEKS FOR CHRONIC GENERALIZED BACK PAIN. BILATERAL THORACIC AND CERVICAL TRIGGER POINT INJECTIONS. PROCEDURE CODES FA211 ESTABILISHED PATIENT [facility] CHARGE DISPOSITION & COMMUNICATION FOLLOW UP POST (REASON: BILATERAL THORACIC AND CERVICAL TRIGGER POINT INJECTIONS) ELECTRONICALLY SIGNED BY GAY CEDEÑO ON 08/30/2019 AT 02:36 PM EDT DISCLAIMER : THIS IS A VISIT SUMMARY EXTRACTED FROM THE [employer] [place] CHART. IT IS NOT A COPY OF THE [employer] PROGRESS NOTE. MARYLOU
== END ==
LOC: M PAIN 11:00
PROVIDERS: ATTEND Nurse Practitioner Family
DX: M54.6 Pain in thoracic spine (principal); M79.18 Myalgia, other site; M54.2 Cervicalgia

== ENCOUNTER 2019-08-31 21:02 | Observation (INO) | payer OTHER, MEDICAID ==
[~2019-08-31] VITALS: Ht 152.4 cm; Wt 113.0 kg
[~2019-08-31 21:02] MED LIST changes: -ACET300T52 PO; -AMLO10TA5 PO; +AMLO1TAB25 PO; -AMLO2.5T3 PO; +CALC-212 PO; +CALC600T17 PO; -CALC600T6 PO; -CALC600T7 PO; -DIGESTIVE HEALTH PO; +HYDR-3490 PO; -HYDR25TAB PO; -LISI-538 PO; +LISI20TA33 PO; -LISI40TA; -LISI40TA PO; +LISI40TA4; +LISI40TA4 PO; -[UNRECOGNIZED DRUG - CODE] PO
[2019-08-31 21:36] LABS: BASO % 0.4 % (0.0-1.0); EOS # 0.4 10^3/uL (0.0-0.5); EOS % 3.6 % (0.0-3.0); HEMATOCRIT 36.7 % (36.0-47.0); HEMOGLOBIN 11.5 g/dl (12.0-15.5); LYMPH # 2.2 10^3/uL (1.5-5.0); MEAN CORPUSCULAR HEMOGLOBIN 27.4 pg (27.0-33.0); MEAN CORPUSCULAR HGB CONC 31.3 g/dl (32.0-36.5); MEAN CORPUSCULAR VOLUME 87.4 fl (80.0-96.0); MONO # 0.6 10^3/uL (0.0-0.8); MONO % 6.2 % (0.0-5.0); NEUTROPHILS # 6.4 10^3/uL (1.5-8.5); NEUTROPHILS % 65.5 % (36.0-66.0); PLATELET COUNT, AUTOMATED 286 10^3/uL (150-450); WHITE BLOOD COUNT 9.7 10^3/uL (4.0-10.0)
[2019-08-31 21:49] LABS: INR 0.97; PROTHROMBIN TIME 12.6 SECONDS (11.8-14.0)
[2019-08-31 22:02] LABS: ALBUMIN 3.2 GM/DL (3.2-5.2); ALT/SGPT 25 U/L (12-78); BILIRUBIN,DIRECT < 0.1 MG/DL (0.0-0.2); BILIRUBIN,TOTAL 0.2 MG/DL (0.2-1.0); CK-MB VALUE MASS 1.4 NG/ML (<3.6); CPK CREATINE PHOSPHOKINASE 52 U/L (26-192); LIPASE 210 U/L (73-393); MB/CK RELATIVE INDEX 2.69 (< OR =4); TOTAL PROTEIN 7.4 GM/DL (6.4-8.2); TROPONIN I < 0.02 NG/ML (< 0.10)
[2019-09-01] MEDS ORDERED: ACETAMINOPHEN TAB 650MG DOSE (2X325MG) PO PRN (01:15)
--- NOTE | 2019-09-01 01:29 | HPEPDOC ---
General Date of Admission Date of Service: Sep 01, 2019 Chief Complaint The patient is a 54-year-old female admitted with a reason for visit of Cardiac Problem. Source: Patient Exam Limitations: No limitations Timing/Duration: Other (tonight) Severity: Other (, not applicable) Associated Symptoms: Other (. ASCVD discharge) History of Present Illness This is a 54 years old white female with past medical history of multiple medical problems including diabetes mellitus, hypertension, CK D, stage III, depression, hypertension, CVA, stroke, and genital herpes, asthma, bipolar disorder, osteoarthritis of the thoracic spine, chronic low back pain, permanent pacemaker, DJD of LS spine, history of C. difficile in the past and recurrent UTIs was in usual state of health today when she suddenly experienced AICD firing for 3 times. Patient was brought to emergency room and she was observed in the ED and patient remained afebrile, but we were called in to admit patient for observation overnight. Patient denies any chest pain, shortness of breath, nausea, vomiting, diarrhea. Home Medications Scheduled Amlodipine Besylate (Amlodipine Besylate) 2.5 Mg Tablet, 2.5 MG PO DAILY, (Reported) Aripiprazole (Abilify Maintena) 400 Mg Suser.syr, 400 MG IM QMONTH, (Reported) Aspirin (Aspirin EC) 81 Mg Tab, 81 MG PO DAILY, (Reported) Atenolol (Atenolol) 50 Mg Tablet, 50 MG PO DAILY, (Reported) Calcium Carbonate/Vitamin D3 (Calcium 600-Vit D3 400 Tablet) 1 Each Tablet, 1 TAB PO DAILY, (Reported) Cetirizine HCl (Cetirizine HCl) 10 Mg Tablet, 10 MG PO DAILY, (Reported) Clopidogrel Bisulfate (Clopidogrel) 75 Mg Tab, 75 MG PO DAILY, (Reported) Fenofibrate Nanocrystallized (Fenofibrate) 48 Mg Tablet, 48 MG PO DAILY, (Reported) Fluticasone Propionate (Flonase Allergy Relief) 50 Mcg/Act Spr, 1 SPRAY NA BID, (Reported) Gabapentin (Gabapentin) 100 Mg Cap, 200 MG PO BID, (Reported) Hydrochlorothiazide (Hydrochlorothiazide) 25 Mg Tablet, 25 MG PO DAILY, (Reported) Insulin Aspart (Novolog Flexpen) 100 Unit/Ml Inj, 1 DOSE SQ ACHS, (Reported) 0-80 nothing 80-150 12units breakfst/10 lunch/8 dinner 151-250 14 breakfast/ 12 lunch/ 10 dinner 251-350 15 breakfast/ 13 lunch/ 11 dinner 351-400 16 breakfast/ 14 lunch/ 12 dinner Insulin Detemir (Levemir) 1 Units/0.01 Ml Susp, 25 UNITS SC BID, (Reported) Liraglutide (Victoza 3-Waqas) 0.6 Mg/0.1 Ml Pen.injctr, 1.8 MG SQ DAILY, (Reported) Lisinopril (Lisinopril) 40 Mg Tablet, 40 MG PO DAILY, (Reported) Magnesium Oxide (Magnesium Oxide) 400 Mg Tab, 400 MG PO DAILY, (Reported) Melatonin (Melatonin) 5 Mg Capsule, 5 MG PO QHS, (Reported) Methenamine Hippurate (Methenamine Hippurate) 1 Gm Tablet, 1 GM PO BID, (Reported) Pioglitazone HCl (Actos) 45 Mg Tablet, 45 MG PO DAILY, (Reported) Pravastatin Sodium (Pravastatin Sodium) 40 Mg Tablet, 40 MG PO DAILY, (Reported) Topiramate (Topamax) 100 Mg Tab, 100 MG PO QHS, (Reported) Venlafaxine HCl (Effexor Xr) 150 Mg Cap.er.24h, 150 MG PO DAILY, (Reported) Vit A/Vit C/Biotin/Zinc/Copper (Hair, Skin and Nails Softgel) 1 Each Capsule, 1 EACH PO DAILY, (Reported) Zonisamide (Zonisamide) 25 Mg Capsule, 25 MG PO QHS, (Reported) [digestive health tab] , 1 TAB PO DAILY, (Reported) Scheduled PRN Acetaminophen with Codeine (Acetaminophen-Cod #4 Tablet) 1 Each Tablet, 1 TAB PO TID PRN for PAIN, (Reported) Albuterol Sulf (Albuterol Sulfate) 2.5 Mg/3 Ml Nebu, 2.5 MG INH QID PRN for SHORTNESS OF BREATH, (Reported) Albuterol Sulfate (Ventolin Hfa) 18 Gm Hfa.aer.ad, 2 PUFFS INH Q6H PRN for SHORTNESS OF BREATH, (Reported) Docusate Sodium (Colace) 100 Mg Cap, 100 MG PO DAILY PRN for CONSTIPATION, (Reported) Allergies Coded Allergies: bismuth subsalicylate (Verified Allergy, Intermediate, SWELLING, 04/15/19) metformin (Verified Allergy, Intermediate, KIDNEY FAILURE, 04/15/19) Past Medical History Medical History diabetes mellitus, hypertension, CK D, stage III, depression, hypertension, CVA, stroke, and genital herpes, asthma, bipolar disorder, osteoarthritis of the thoracic spine, chronic low back pain, permanent pacemaker, DJD of LS spine, history of C. difficile in the past and recurrent UTIs Surgical History Ankle surgery. Umbilicus hernia repair, C-sections 2. Anal fissure repaired dermoid tumor removal, eyelid lift. Cholecystectomy, left cataract surgery mass removal from left eye Family History Father diseased was diagnosed with diabetes, hypertension or heart disease. Mother is also with hypertension, heart disease and diabetes and one brother has a cardiac complications and he from them Social History * Smoker: former Smoker Alcohol: Denies Drugs: denies A-FIB/CHADSVASC A-FIB History Current/History of A-Fib/PAF?: No Review of Systems Constitutional: Denies: Chills, Fever, Malaise, Night Sweats, Weakness, Fatig ue, Weight Loss, Lethargy, Other Eyes: Denies: Pain, Vision change, Conjunctivae inflammation, Eyelid inflammation, Redness, Other ENT: Denies: Head Aches, Ear Pain, Dysphagia, Sinus Congestion, Post Nasal Drip, Sore Throat, Epistaxis, Other Symptoms Skin: Denies: Rash, Lesions, Jaundice, Bruising, Itching, Dry, Breakdown, Nail Changes, Other Pulmonary: Denies: Dyspnea, Cough, Pleuritic Chest Pain, Other Symptoms Cardiovascular: Denies: Chest Pain, Palpitations, Orthopnea, Paroxysmal Noc. Dyspnea, Edema, Lt Headedness, Other Symptoms Gastrointestinal: Denies: Nausea, Vomiting, Abdominal Pain, Diarrhea, Constipation, Melena, Hematochezia, Other Symptoms Genitourinary: Denies: Dysuria, Frequency, Incontinence, Hematuria, Retention, Other Symptoms Hematologic: Denies: Bruising, Bleeding Excessively, Petecchia, Purpura, Enlarged Lymph Nodes, Other Hematologic Endocrine: Denies: Polydipsia, Polyphagia, Polyuria, Heat Intolerance, Cold Intolerance, Other Endocrine Sx Musculoskeletal: Denies: Neck Pain, Back Pain, Shoulder Pain, Arm Pain, Hand Pain, Leg Pain, Foot Pain, Joint Pain, Muscle Pain, Spasms, Other Symptoms Neurological: Denies: Weakness, Numbness, Incoordination, Change in speech, Confusion, Seizures, Other Symptoms Psych: Denies: Mood Normal, Anxiety, Depression, Memory Issues, Thoughts of Self Harm, Anger, Thoughts of Harming Other, Other Psych Physical Examination General Exam: Positive: Alert, Cooperative Eye Exam: Positive: PERRLA, Conjunctiva & lids normal ENT Exam: Positive: Atraumatic Neck Exam: Positive: Supple Chest Exam: Positive: Clear to auscultation, Normal air movement Heart Exam: Positive: Rate Normal Abdomen Exam: Positive: Normal bowel sounds, Soft Extremity Exam: Positive: Normal pulses Skin Exam: Positive: Nl turgor and temperature Neuro Exam: Positive: Strength at 5/5 X4 ext, Sensation Intact, Cranial Nerves 3-12 NL Psych Exam: Positive: Mood NL, Oriented x 3 Vital Signs Vital Signs Date Time Temp Pulse Resp B/P (MAP) Pulse Ox O2 Delivery O2 Flow Rate FiO2 08/31/19 23:00 74 142/83 (102) 99 08/31/19 21:21 96.4 08/31/19 21:19 20 Room Air Laboratory Data Labs 24H Laboratory Tests 2 08/31/19 21:22: Immature Granulocyte % (Auto) 1.3, Neutrophils (%) (Auto) 65.5, Lymphocytes (%) (Auto) 23.0L, Monocytes (%) (Auto) 6.2H, Eosinophils (%) (Auto) 3.6H, Basophils (%) (Auto) 0.4, Neutrophils # (Auto) 6.4, Lymphocytes # (Auto) 2.2, Monocytes # (Auto) 0.6, Eosinophils # (Auto) 0.4, Basophils # (Auto) 0.0, Nucleated Red Blood Cells % (auto) 0.0, Prothrombin Time 12.6, Prothromb Time International Ratio 0.97, Magnesium Level 2.0, Total Bilirubin 0.2, Direct Bilirubin < 0.1, Aspartate Amino Transf (AST/SGOT) 11, Alanine Aminotransferase (ALT/SGPT) 25, Alkaline Phosphatase 113, Total Creatine Kinase 52, Creatine Kinase MB 1.4, Creatine Kinase MB Relative Index 2.69, Troponin I < 0.02, Total Protein 7.4, Albumin 3.2, Albumin/Globulin Ratio 0.8L, Lipase 210 08/31/19 21:25: POC Glucose (Misc Panel) 280H, POC Sodium (Misc Panel) 139, POC Potassium (Misc Panel) 3.5, POC Chloride (Misc Panel) 97L, POC Total CO2 (Misc Panel) 30.0H, POC Blood Urea Nitrogen (Misc Panel 33H, POC Ionized Calcium (Misc Panel) 4.8, POC Creatinine (Misc Panel) 1.5H, POC Hematocrit (Misc Panel) 35.0L CBC/BMP Laboratory Tests 08/31/19 21:22 Problems (1) AICD discharge Status: Acute Problem Text: 84 years old white female with multiple medical problem including diabetes mellitus, hypertension, CK D, stage III, depression, hypertension, CVA, stroke, and genital herpes, asthma, bipolar disorder, osteoarthritis of the thoracic spine, chronic low back pain, permanent pacemaker, DJD of LS spine, history of C. difficile in the past and recurrent UTIs, was admitted with firing of AICD 3 but patient had remained asymptomatic. Once she arrived to ER and remained there. Admit patient to [facility] floor with telemetry Patient's EKG shows a pacemaker rhythm, no acute ST-T changes Chest x-ray is normal CBC, CMP, electrolytes and magnesium are within normal range Patient will be observed overnight and can be discharged home tomorrow once consulted, and the spoken with her v belt finisher Dr. Ayala Diet consistent carbohydrate diet Activity bed rest with bathroom privileges DVT prophylaxis with heparin (2) Diabetes mellitus Status: Chronic Problem Text: The fingerstick blood sugar every before meals and at bedtime with coverage Continue home meds (3) CKD (chronic kidney disease) stage 3, GFR 30-59 ml/min Status: Chronic Problem Text: BUN/creatinine are within normal range Continue home meds (4) Major depressive disorder Status: Chronic Problem Text: Continue home meds (5) Chronic back pain Status: Chronic Problem Text: Continue home meds (6) HTN (hypertension) Status: Chronic Problem Text: The patient is under control. Plan continue home meds Plan / VTE VTE Prophylaxis Ordered?: Yes JEANCARLOS HICKEY MD Sep 01, 2019 01:29
[2019-09-01] MEDS ORDERED: DEXTROSE 50% 50 ML SYRINGE IV PRN (01:30)
[2019-09-01] MEDS ORDERED: GLUCOSE 4GM CHEW TABLET PO PRN (01:30)
[2019-09-01] MEDS ORDERED: GLUCAGON INJ 1MG VIAL SC PRN (01:30)
[2019-09-01] MEDS ORDERED: DIGESTIVE HEALTH PO (02:13)
[2019-09-01] MEDS ORDERED: [UNRECOGNIZED DRUG - CODE] PO (02:13)
[2019-09-01] MEDS ORDERED: EFFE150C2 PO (02:13)
[2019-09-01] MEDS ORDERED: AMLO2.5T3 PO (02:13)
[2019-09-01] MEDS ORDERED: ACET300T52 PO (02:13)
[2019-09-01] MEDS ORDERED: ATEN50TA2 PO (02:13)
[2019-09-01 02:25] VITALS: BP 142/77
[2019-09-01 04:00] VITALS: BP 138/64
--- NOTE | 2019-09-01 06:31 | ECGEPIP ---
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
[2019-09-01] MEDS ORDERED: HumaLOG INSULIN (NovoLOG) PER UNIT SC SCH ×2 (07:30→21:00)
[2019-09-01 08:00] VITALS: BP 140/82
[2019-09-01] MEDS ORDERED: ALBUTEROL SULFATE 2.5 MG/0.5 ML INH NEB SOLN INH PRN (08:00)
[2019-09-01] MEDS ORDERED: DOCUSATE SODIUM 100MG CAPSULE PO PRN (08:00)
--- NOTE | 2019-09-01 08:08 | REP ---
Clinical: Chest pain . Comparison: 04/15/2019 . Findings: The mediastinum and cardiac silhouette are stable. Pacemaker in stable position. The lung canas are clear without acute consolidation, effusion, or pneumothorax. Skeletal structures are intact. Impression: No acute cardiopulmonary process appreciated. Electronically Signed by Shukri Burris MD 09/01/2019 07:59 A
[2019-09-01] MEDS ORDERED: HEPARIN SOD (PORCINE) 5000UNITS/ML 1ML VIAL/SYRINGE SC SCH (09:00)
[2019-09-01] MEDS ORDERED: VENLAFAXINE **XR** 75MG CAPSULE PO SCH (09:00)
[2019-09-01] MEDS ORDERED: GABAPENTIN 100 MG CAP PO SCH (09:00)
[2019-09-01] MEDS ORDERED: MAGNESIUM OXIDE 400MG TAB (MAG-OX) PO SCH (09:00)
[2019-09-01] MEDS ORDERED: ASPIRIN 81 MG ENTERIC TAB PO SCH (09:00)
[2019-09-01] MEDS ORDERED: PRAVASTATIN 20 MG TAB PO SCH (09:00)
[2019-09-01] MEDS ORDERED: CLOPIDOGREL 75 MG TAB PO SCH (09:00)
[2019-09-01] MEDS ORDERED: lisinopriL 40 MG TAB PO SCH (09:00)
[2019-09-01] MEDS ORDERED: CETIRIZINE (ZyrTEC) 10 MG TAB PO SCH (09:00)
[2019-09-01] MEDS ORDERED: CALCIUM/VITAMIN D 500 MG TAB PO SCH (09:00)
[2019-09-01] MEDS ORDERED: FLUTICASONE PROP 0.05% NASAL SPRAY 16 GM (FLONASE) SCH (09:00)
[2019-09-01] MEDS ORDERED: FENOFIBRATE 48 MG TAB (TRICOR) PO SCH (09:00)
[2019-09-01] MEDS ORDERED: atenoloL 50 MG TAB PO SCH (09:00)
[2019-09-01] MEDS ORDERED: LEVEMIR (INSULIN DETEMIR) 1 UNITS/0.01ML SC SCH (09:00)
[2019-09-01 09:14] VITALS: BP 140/82
--- NOTE | 2019-09-01 11:59 | DS.PDOC ---
Discharge Summary General Date of Admission Aug 31, 2019 at 21:03 Date of Discharge 09/01/2019 Attending Physician: PAUL GUERRERO MD Discharge Summary PROCEDURES PERFORMED DURING STAY: None. ADMITTING DIAGNOSES: 1. [place] firing of pacemaker 3. DISCHARGE DIAGNOSES: 1. [place] firing of pacemaker 3. COMPLICATIONS/CHIEF COMPLAINT: Aicd Discharge. HISTORY OF PRESENT ILLNESS: 54-year-old female with multiple medical comorbidities, was admitted overnight as she felt her pacemaker fired 3 times within one hour, has not happened since admission, patient has remained asymptomatic throughout these episodes and throughout the hospitalization. She is without any complaints this morning, case was discussed with patient's pig conveyor operator Dr. Ayala who recommended calling the on-call pig conveyor operator Dr. Acuna who evaluated the patient's pacemaker and person, and found no abnormalities with it and recommended patient be discharged with outpatient follow-up with her pig conveyor operator. Patient is hemodynamically stable for discharge at this time with outpatient follow-up. HOSPITAL COURSE: As above. DISCHARGE MEDICATIONS: Please see below. ALLERGIES: Please see below. PHYSICAL EXAMINATION: VITAL SIGNS: Please see below. GENERAL: Morbidly obese, no distress HEENT: Normocephalic, atraumatic, moist mucous membranes NECK: Supple CARDIOVASCULAR EXAMINATION: S1, S2, no murmurs RESPIRATORY EXAMINATION: Scattered rhonchi, diminished in the bases, no wheezing ABDOMINAL EXAMINATION: Soft, nontender, nondistended, positive bowel sounds EXTREMITIES: Trace edema SKIN: No rash NEUROLOGICAL EXAMINATION: Alert and oriented 3, no focal deficits PSYCHIATRIC EXAMINATION: Calm and cooperative LABORATORY DATA: Please see below. IMAGING: Chest x-ray without acute pathology PROGNOSIS: Fair ACTIVITY: As tolerated. DIET: Cardiac DISCHARGE PLAN: Follow with PCP and pig conveyor operator within 1-2 weeks DISPOSITION: Home. DISCHARGE INSTRUCTIONS: 1. As above. DISCHARGE CONDITION: Stable. TIME SPENT ON DISCHARGE: Greater than 30 minutes. Vital Signs/I&Os Vital Signs Date Time Temp Pulse Resp B/P (MAP) Pulse Ox O2 Delivery O2 Flow Rate FiO2 09/01/19 09:14 83 140/82 09/01/19 08:00 98.4 18 96 Room Air I&O- Last 24 Hours up to 6 AM 09/01/19 06:00 Intake Total 0 ml Output Total 0 ml Balance 0 ml Laboratory Data Labs 24H Laboratory Tests 2 08/31/19 21:22: Immature Granulocyte % (Auto) 1.3, Neutrophils (%) (Auto) 65.5, Lymphocytes (%) (Auto) 23.0L, Monocytes (%) (Auto) 6.2H, Eosinophils (%) (Auto) 3.6H, Basophils (%) (Auto) 0.4, Neutrophils # (Auto) 6.4, Lymphocytes # (Auto) 2.2, Monocytes # (Auto) 0.6, Eosinophils # (Auto) 0.4, Basophils # (Auto) 0.0, Nucleated Red Blood Cells % (auto) 0.0, Prothrombin Time 12.6, Prothromb Time International Ratio 0.97, Magnesium Level 2.0, Total Bilirubin 0.2, Direct Bilirubin < 0.1, Aspartate Amino Transf (AST/SGOT) 11, Alanine Aminotransferase (ALT/SGPT) 25, Alkaline Phosphatase 113, Total Creatine Kinase 52, Creatine Kinase MB 1.4, Creatine Kinase MB Relative Index 2.69, Troponin I < 0.02, Total Protein 7.4, Albumin 3.2, Albumin/Globulin Ratio 0.8L, Lipase 210 08/31/19 21:25: POC Glucose (Misc Panel) 280H, POC Sodium (Misc Panel) 139, POC Potassium (Misc Panel) 3.5, POC Chloride (Misc Panel) 97L, POC Total CO2 (Misc Panel) 30.0H, POC Blood Urea Nitrogen (Misc Panel 33H, POC Ionized Calcium (Misc Panel) 4.8, POC Creatinine (Misc Panel) 1.5H, POC Hematocrit (Misc Panel) 35.0L 09/01/19 04:18: Troponin I < 0.02 09/01/19 08:23: Bedside Glucose (Misc Panel) 196H CBC/BMP Laboratory Tests 08/31/19 21:22 FSBS Laboratory Tests Test 09/01/19 08:23 Range/Units Bedside Glucose (Misc Panel) 196 70-105 MG/DL Discharge Medications Scheduled Amlodipine Besylate (Amlodipine Besylate) 2.5 Mg Tablet, 2.5 MG PO DAILY, (Reported) Aripiprazole (Abilify Maintena) 400 Mg Suser.syr, 400 MG IM QMONTH, (Reported) Aspirin (Aspirin EC) 81 Mg Tab, 81 MG PO DAILY, (Reported) Atenolol (Atenolol) 50 Mg Tablet, 50 MG PO DAILY, (Reported) Calcium Carbonate/Vitamin D3 (Calcium 600-Vit D3 400 Tablet) 1 Each Tablet, 1 TAB PO DAILY, (Reported) Cetirizine HCl (Cetirizine HCl) 10 Mg Tablet, 10 MG PO DAILY, (Reported) Clopidogrel Bisulfate (Clopidogrel) 75 Mg Tab, 75 MG PO DAILY, (Reported) Fenofibrate Nanocrystallized (Fenofibrate) 48 Mg Tablet, 48 MG PO DAILY, (Reported) Fluticasone Propionate (Flonase Allergy Relief) 50 Mcg/Act Spr, 1 SPRAY NA BID, (Reported) Gabapentin (Gabapentin) 100 Mg Cap, 200 MG PO BID, (Reported) Hydrochlorothiazide (Hydrochlorothiazide) 25 Mg Tablet, 25 MG PO DAILY, (Reported) Insulin Aspart (Novolog Flexpen) 100 Unit/Ml Inj, 1 DOSE SQ ACHS, (Reported) 0-80 nothing 80-150 12units breakfst/10 lunch/8 dinner 151-250 14 breakfast/ 12 lunch/ 10 dinner 251-350 15 breakfast/ 13 lunch/ 11 dinner 351-400 16 breakfast/ 14 lunch/ 12 dinner Insulin Detemir (Levemir) 1 Units/0.01 Ml Susp, 25 UNITS SC BID, (Reported) Liraglutide (Victoza 3-Waqas) 0.6 Mg/0.1 Ml Pen.injctr, 1.8 MG SQ DAILY, (Reported) Lisinopril (Lisinopril) 40 Mg Tablet, 40 MG PO DAILY, (Reported) Magnesium Oxide (Magnesium Oxide) 400 Mg Tab, 400 MG PO DAILY, (Reported) Melatonin (Melatonin) 5 Mg Capsule, 5 MG PO QHS, (Reported) Methenamine Hippurate (Methenamine Hippurate) 1 Gm Tablet, 1 GM PO BID, (Reported) Pioglitazone HCl (Actos) 45 Mg Tablet, 45 MG PO DAILY, (Reported) Pravastatin Sodium (Pravastatin Sodium) 40 Mg Tablet, 40 MG PO DAILY, (Reported) Topiramate (Topamax) 100 Mg Tab, 100 MG PO QHS, (Reported) Venlafaxine HCl (Effexor Xr) 150 Mg Cap.er.24h, 150 MG PO DAILY, (Reported) Vit A/Vit C/Biotin/Zinc/Copper (Hair, Skin and Nails Softgel) 1 Each Capsule, 1 EACH PO DAILY, (Reported) Zonisamide (Zonisamide) 25 Mg Capsule, 25 MG PO QHS, (Reported) [digestive health tab] , 1 TAB PO DAILY, (Reported) Scheduled PRN Acetaminophen with Codeine (Acetaminophen-Cod #4 Tablet) 1 Each Tablet, 1 TAB PO TID PRN for PAIN, (Reported) Albuterol Sulf (Albuterol Sulfate) 2.5 Mg/3 Ml Nebu, 2.5 MG INH QID PRN for SHORTNESS OF BREATH, (Reported) Albuterol Sulfate (Ventolin Hfa) 18 Gm Hfa.aer.ad, 2 PUFFS INH Q6H PRN for SHORTNESS OF BREATH, (Reported) Docusate Sodium (Colace) 100 Mg Cap, 100 MG PO DAILY PRN for CONSTIPATION, (Reported) Allergies Coded Allergies: bismuth subsalicylate (Verified Allergy, Intermediate, SWELLING, 04/15/19) metformin (Verified Allergy, Intermediate, KIDNEY FAILURE, 04/15/19) PAUL GUERRERO MD Sep 01, 2019 11:59
[2019-09-01] MEDS ORDERED: TOPIRAMATE (TopAMAX) 100 MG TAB PO SCH (21:00)
== END 2019-09-01 13:54 | disposition home or self-care (01) ==
LOC: M ED 21:02 → M ED INP 21:03 → ENRESERV 09-01 01:34 → M PCU 09-01 02:18
PROVIDERS: ADMIT Internal Medicine; ATTEND Internal Medicine
DX: T82.198A Other mechanical complication of other cardiac electronic device, initial encounter (principal); I12.9 Hypertensive chronic kidney disease with stage 1 through stage 4 chronic kidney disease, or unspecified chronic kidney disease; E66.01 Morbid (severe) obesity due to excess calories; E11.9 Type 2 diabetes mellitus without complications; N18.3 Chronic kidney disease, stage 3 (moderate); J45.909 Unspecified asthma, uncomplicated; F31.9 Bipolar disorder, unspecified; F32.9 Major depressive disorder, single episode, unspecified; Z79.82 Long term (current) use of aspirin; Z79.4 Long term (current) use of insulin; Z79.899 Other long term (current) drug therapy; Z88.8 Allergy status to other drugs, medicaments and biological substances; A60.00 Herpesviral infection of urogenital system, unspecified; Z87.891 Personal history of nicotine dependence; Z86.73 Personal history of transient ischemic attack (TIA), and cerebral infarction without residual deficits; Y71.8 Miscellaneous cardiovascular devices associated with adverse incidents, not elsewhere classified
CPT/HCPCS: 36415; 71045; 80047; 80076; 82550; 82553; 83690; 83735; 84484; 85025; 85610; 93005; 93041; 94760; 96372; 99285; G0378; J1644

== ENCOUNTER → 2019-09-13 | Outpatient (CLI) | payer OTHER, MEDICAID ==
[~2019-09-13] MED LIST changes: +ACET300T52 PO; +AMLO2.5T3 PO; +DIGESTIVE HEALTH PO; +[UNRECOGNIZED DRUG - CODE] PO
== END ==
LOC: M LABSMTC 09:58
PROVIDERS: ATTEND Anesthesiology
DX: Z11.59 Encounter for screening for other viral diseases (principal); Z03.818 Encounter for observation for suspected exposure to other biological agents ruled out
CPT/HCPCS: C9803; U0003

== ENCOUNTER → 2019-09-16 | Outpatient (CLI) | payer OTHER, MEDICAID ==
[~2019-09-16] MED LIST changes: +AMLO10TA5 PO; -AMLO1TAB25 PO; +BUPIVACAINE HCL 0.25% 10ML VIAL As Ordered ONE; +BUPIVACAINE HCL 0.25% 30ML VIAL As Ordered ONE; -CALC-212 PO; -CALC600T17 PO; +CALC600T6 PO; +CALC600T7 PO; -HYDR-3490 PO; +HYDR25TAB PO; +LISI-538 PO; -LISI20TA33 PO; +LISI40TA; +LISI40TA PO; -LISI40TA4; -LISI40TA4 PO; +dexameTHASONE 10MG/1ML VIAL PRES.FREE (J1100 PER 1MG) As Ordered ONE; +diazePAM 5 MG TAB As Ordered ONE; +oxyCODONE 5MG TAB As Ordered ONE
--- NOTE | 2019-09-17 01:12 | ECWPNPC ---
PATIENT NAME: RPUDENCIO SHAHID : 1965 GENDER: FEMALE VISIT DATE: 09/16/2019 DISCHARGE DATE: 09/16/19 1415 VISIT LOCKED DATE TIME: PHYSICIAN: PANDA SO MD RESOURCE: PANDA SO MD REASON FOR APPOINTMENT 1. VERENICE THORACIC AND CERVICAL TPI HISTORY OF PRESENT ILLNESS GENERAL: -. FALL RISK SCREENING: SCREENING :ONE FALL WITH INJURY IN THE PAST YEAR PAIN SCREENING: PATIENT HAS A COMPLAINT OF ACUTE OR CHRONIC PAIN :YES 09/13/19 LOCATION OF PAIN:UPPER BACK, MID BACK INTENSITY OF PAIN (SCALE OF 1 TO 10):8 WHAT DOES YOUR PAIN FEEL LIKE:ACHING, CONTINOUS, THROBBING, SHOOTING PAIN IS INCREASED BY: PUTTING ON BRA, SITTING UP PAIN IS DECREASED BY: REST NURSING NOTE: -. PAIN CENTER INTAKE QUESTIONS: DO YOU HAVE A HISTORY OF MRSA? :NO DO YOU TAKE A BLOOD THINNERS? :YES PLAVIX DO YOU HAVE ANY BLEEDING DISORDERS? :NO ANY NEW NUMBNESS OR WEAKNESS IN YOUR LEGS OR ARMS? :NO ANY PACEMAKER,DEFIBRILLATOR, OR DORSAL COLUMN STIMULATOR? :YES PACEMAKER DO YOU HAVE ANY RASHES OR OPEN SORES? :NO ARE YOU ALLERGIC TO IV DYE? :NO ARE YOU DIABETIC? :YES STATES FSBS 114 AT 0930 ANY NEW PROBLEMS WITH YOUR MEDICATIONS? :NO HAVE YOU RECEIVED A VACCINE IN THE PAST 30 DAYS? :NO DO YOU PLAN TO RECEIVE A VACCINE IN THE NEXT 21 DAYS? :NO DO YOU TAKE ANY IMMUNOSUPPRESSIVE MEDICATIONS? :NO ANY HISTORY OF SEIZURES? :NO ANY HISTORY OF CARDIAC ISSUES OR EVENTS? :YES PACEMAKER DO YOU HAVE SLEEP APNEA? : NO. ANY RECENT HEAD INJURY? :NO DO YOU HAVE ANY NEW INFECTIONS? :NO IS THERE A CHANCE YOU COULD BE ? :NO ARE YOU BREAST FEEDING? :NO WHEN DID YOU LAST EAT? : -MIDNIGHT 09/15/19 WHEN DID YOU LAST DRINK? : -09/16/19 1000 WHAT DID YOU LAST DRINK? : -WATER NAME OF PERSON DRIVING YOU HOME? : -VOLUNTEER DO YOU HAVE ANY OTHER QUESTIONS OR CONCERNS? : -NO CURRENT MEDICATIONS TAKING HUMALOG 100 UNIT/ML SOLUTION SLIDING SCALE, IF BLOOD SUGAR IS 150 PT TAKES 14 UNITS, IF IT IS HIGHER THAN THAT 14 UNITS SUBCUTANEOUS SLIDING SCALE, MDD 24 UNITS, NOTES: 09/15/19 1730 TAKING DRISDOL 47027 UNIT CAPSULE 1 CAPSULE ORALLY WEEKLY, NOTES: 09/12/19 TAKING MAGNESIUM OXIDE 400 MG TABLET 1 TABLET ORALLY ONCE A DAY, NOTES: 09/15/191729 TAKING ZONISAMIDE 25 MG CAPSULE 1 CAPSULES ORALLY BEFORE BEDTIME, NOTES: 09/15/192099 TAKING ASPIR-81 81 MG TABLET DELAYED RELEASE 1 TABLET ORALLY ONCE A DAY, NOTES: 09/16/19929 TAKING CALCIUM 600 + D 600-400 MG-UNIT TABLET 1 TABLET ORALLY ONCE A DAY, NOTES: 09/16/19929 TAKING MAY HAVE - - DIRECTED PATIENT WOULD BENEFIT FROM A FARM ADVISOR ANIMAL DUE TO PSHCYOLOGICAL AND CARDIAC ISSUES TAKING EFFEXOR XR 75 MG CAPSULE EXTENDED RELEASE 24 HOUR 1 CAPSULE WITH FOOD ORALLY ONCE A DAY, NOTES: 09/16/19929 TAKING PLAVIX 75 MG TABLET 1 TABLET ORALLY ONCE A DAY, NOTES: 09/16/19929 TAKING ABILIFY MAINTENA 300 MG PREFILLED SYRINGE INTRAMUSCULAR MONTHLY, NOTES: 08/30/19 TAKING ZOFRAN 4 MG TABLET 1 TABLETS ORALLY TWICE A DAY NEEDED FOR NAUSEA/VOMITING, NOTES: NONE RECENTLY TAKING CETIRIZINE HCL 10MG TABLET TAKE ONE TABLET BY MOUTH ONCE DAILY NEEDED , NOTES: 09/15/19929 TAKING COLACE 100 MG CAPSULE 1 CAPSULE NEEDED ORALLY ONCE A DAY, NOTES: NONE RECENTLY TAKING LEVEMIR FLEXPEN 100 UNIT/ML SOLUTION 20 UNITS SUBCUTANEOUS TWICE A DAY, NOTES: 09/15/191729 TAKING VICTOZA 18 MG/3ML SOLUTION PEN-INJECTOR 1.8 ML SUBCUTANEOUS ONCE A DAY, NOTES: 09/15/19929 TAKING LISINOPRIL 20 MG TABLET 1/2 TABLET ORALLY ONCE A DAY, NOTES: 09/16/19929 TAKING HYDROCHLOROTHIAZIDE 25 MG TABLET 1 TABLET IN THE MORNING ORALLY ONCE A DAY, NOTES: 09/16/19929 TAKING DECONGESTANT - TABLET EXTENDED RELEASE DIRECTED ORALLY , NOTES: NONE RECENTLY TAKING LIDOCAINE-PRILOCAINE 2.5-2.5 % CREAM DIRECTED TO LOW BACK EXTERNALLY TID PRN, NOTES: 09/16/19929 TAKING PRAVASTATIN SODIUM 40 MG TABLET 1 TABLET ORALLY ONCE A DAY, NOTES: 09/16/19929 TAKING ALBUTEROL SULFATE (2.5 MG/3ML) 0.083% NEBULIZATION SOLUTION 3 ML INHALATION QID PRN, NOTES: NONE RECENTLY TAKING FENOFIBRATE 48 MG TABLET 1 TABLET ORALLY ONCE A DAY, NOTES: 09/16/19929 TAKING PROAIR HFA 108 (90 BASE) MCG/ACT AEROSOL SOLUTION 2 PUFFS NEEDED INHALATION EVERY 6 HRS NEEDED, NOTES: 09/15/19929 TAKING METHENAMINE HIPPURATE 1 GM TABLET 1 TABLET ORALLY TWICE A DAY, NOTES: 09/15/191729 TAKING TYLENOL WITH CODEINE #3 300-30 MG TABLET 1 ORALLY Q8H PRN MDD3, NOTES: 09/14/19 TAKING FLUCONAZOLE 150 MG TABLET 1 TABLET ORALLY DIRECTED, NOTES: NONE RECENTLY TAKING BACID - CAPSULE 2 CAPS ORALLY THREE TIMES DAILY WITH MEALS, NOTES: 09/16/19929 TAKING ACTOS 45MG TABLET 1 TABLET ORALLY ONCE A DAY, NOTES: 09/15/19929 TAKING AMLODIPINE BESYLATE 2.5 MG TABLET 1 TABLET ORALLY ONCE A DAY, NOTES: 09/16/19929 TAKING GABAPENTIN 100 MG CAPSULE 2 CAPSULES ORALLY BID, NOTES: 09/16/19929 TAKING ALIGN - CAPSULE DIRECTED ORALLY DAILY, NOTES: 09/16/19929 NOT-TAKING AMOXICILLIN 875 MG TABLET 1 TABLET ORALLY EVERY 12 HRS NOT-TAKING VANCOMYCIN HCL 125 MG CAPSULE 1 CAPSULE ORALLY EVERY 12 HOURS NOT-TAKING VANCOMYCIN HCL 250 MG CAPSULE 1 CAP ORALLY FOUR TIMES DAILY MEDICATION LIST REVIEWED AND RECONCILED WITH THE PATIENT PAST MEDICAL HISTORY HYPERLIPIDEMIA DIABETES MELLITUS - WITH NON-PROLIFERATIVE RETINOPATHY LEFT EYE PER CENTER FOR SIGHT 06/2013. 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 DIFFUSE DISC BULGES AT THE L1-2 AND L3-4 LEVELS WITH MINIMAL THECAL SAC. 2. MINIMAL CENTRAL CANAL STENOSIS AT THE L4-5 LEVEL SECONDARY TO DISC BULGE, - CHRONIC PAIN MANAGEMENT THROUGH DR[facility]) CKD STAGE 3 C. 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 1 SON(S) , 2 DAUGHTER(S) - HEALTHY. ONE BROTHER FROM CARDIAC COMPLICATION\\\\\\\\NDAUGHTERS HAVE DEPRESSION. SOCIAL HISTORY GENERAL: TOBACCO USE ARE YOU A:FORMER SMOKER HOW LONG HAS IT BEEN SINCE YOU LAST SMOKED?> 10 YEARS LATEX QUESTIONNAIRE LATEX ALLERGY : HAVE YOU EVER DEVELOPED ANY TYPE OF REACTION AFTER HANDLING LATEX PRODUCTS SUCH RUBBER GLOVES, CONDOMS, DIAPHRAGMS, BALLOONS, SOCKS, OR UNDERWEAR?NO LATEX ALLERGY : HAVE YOU EVER DEVELOPED ANY TYPE OF REACTION DURING OR AFTER DENTAL APPOINTMENT, VAGINAL/RECTAL EXAMINATION, SURGICAL PROCEDURE, OR ANY OTHER EXPOSURE?NO DATE ASKED : 04/30/2019 LATEX RISK : HAVE YOU EVER HAD ANY DIFFICULTY BREATHING OR HIVES AFTER EATING OR HANDLING ANY FRUITS, OR VEGETABLES; SUCH KIWI, BANANAS, STONE FRUITS, OR CHESTNUTSNO LATEX RISK : DO YOU HAVE A PREVIOUS PERSONAL HISTORY OF MORE THAN NINE SURGERIES, SPINA BIFIDA, OR REPEATED CATHERIZATIONS? NO LATEX RISK : ARE YOU FREQUENTLY EXPOSED TO LATEX PRODUCTS IN YOUR OCCUPATION?NO LUNG CANCER SCREENING SMOKING STATUS:FORMER SMOKER BMI CARE GOAL FOLLOW-UP ABOVE NORMAL BMI FOLLOW-UPDIETARY MANAGEMENT EDUCATION, GUIDANCE, AND COUNSELING ALCOHOL SCREENING DID YOU HAVE A DRINK CONTAINING ALCOHOL IN THE PAST YEAR?NO POINTS0 INTERPRETATIONNEGATIVE RECREATIONAL DRUG USE DRUG USE?NO CAFFEINE CAFFEINE USE?YES 1CUP COFFEE SEXUAL HX HAD SEX IN THE LAST 12 MONTHS (VAGINAL, ORAL, OR ANAL)?NO LMP:02/2016 HAVE YOU EVER HAD AN STD?NO HIV / HEP-C SCREENING HIV TEST OFFERED TO PATIENT:YES DATE OFFERED:06/30/2016 TEST ACCEPTED:NO REASON:PATIENT DECLINED BROCHURE PROVIDED TO PATIENTNO TAOIST [id number] JUDAISM LANGUAGE LANGUAGES SPOKEN:[place] LEARNING BARRIERS / SPECIAL NEEDS CHANGE FROM LAST VISIT?NO 10/29/2018 BARRIERS TO LEARNING?NO HEARING IMPAIRED?NO VISION IMPAIRED?YES COGNITIVELY IMPAIRED?NO :CORRECTIVE LENSES READINESS TO LEARN?YES LEARNING PREFERENCES?NO LEARNING CAPABILITIES PRESENT?YES EMOTIONAL BARRIERS?NO SPECIAL DEVICES?NO COPY WORKER NEEDED?NO DOMESTIC VIOLENCE DO YOU FEEL SAFE IN YOUR ENVIRONMENT?YES DIET: NO CONCENTRATED SWEETS., CARBOHYDRATE CONTROLLED, LOW FAT, LOW CHOLESTEROL. EXERCISE: WALKS 1 MILE WEATHER PERMITTING. MARITAL STATUS: .. OTHERS AT HOME: CHILD DAUGHTER. NEW PATIENT PAIN DIARY TODAY'S VISITNOTES 07/08/2019 FROM 0-10, WHAT LEVEL IS YOUR PAIN TODAY?0 PAIN CLINIC PFS, CLERGY, PUBLIC HEALTH REFERRALS PFS REFERRAL NEEDED?NO CLERGY REFERRAL NEEDED?NO PUBLIC HEALTH REFERRAL NEEDED?NO WAS THE PROVIDER NOTIFIED OF ANY PERTINENT INFO?YES N/A HAS THE PATIENT BEEN EDUCATED REGARDING HIS/HER PLAN OF CARE?YES HAS THE PATIENT BEEN EDUCATED REGARDING PAIN, THE RISK FOR PAIN, THE IMPORTANCE OF EFFECTIVE PAIN MANAGEMENT, AND THE PAIN ASSESSMENT PROCESS?YES ADVANCE DIRECTIVE ADVANCE DIRECTIVE DISCUSSED WITH PATIENT:YES PT HAS HCP USMAN ROBERTS [phone] HOSPITALIZATION/MAJOR DIAGNOSTIC PROCEDURE 3 DAYS FOR TIA 06/2013 SURGERIES PACER ACTING UP, OBSERVED VITAL SIGNS WT 253 LBS, HT 64.25 IN, BMI 43.09 INDEX, BP 173/81 MM HG, HR 78 /MIN, RR 18 /MIN, TEMP 97.3 F, OXYGEN SAT % 96%, SAFE IN ENV? (Y/N) YES, NA INITIALS SC 12:35, REVIEWED BY: GODWIN. EXAMINATION GENERAL EXAMINATION: THE PATIENT IS ALERT, ORIENTED TIMES THREE AND COOPERATIVE. HEART SHOWS REGULAR RHYTHM, NO MURMURS AND NO GALLOPS. LUNGS ARE CLEAR TO AUSCULTATION. ASSESSMENTS MYALGIA, OTHER SITE - M79.18 (PRIMARY) TREATMENT OTHERS CLINICAL NOTES: PRE SCREENING CALL DONE 09/13/19 EM. PROCEDURES PAIN NURSING RECORD PRE-PROCEDURE IV SITE N/A, PRE-PROCEDURE ORAL MEDICATIONS VALIUM 5 MG PO AND OXYCODONE 5 MG PO GIVEN AT 1304 09/16/19. Westley TANG RN PROCEDURE IN ROOM N/A, PHYSICIAN IN ROOM 1327, START 1332, FINISH 1335, PHYSICIAN OUT OF ROOM 1337, STEROID DEXAMETHASONE, O2 RA, ECG N/A, PATIENT SHIELDED NO, SAFETY STRAP NO, PREP ALCOHOL, IV INFUSED N/A, DRESSING TEGADERM LOC: 1. ALERT, ORIENTED RESP: 1. REGULAR, NO DYSPNEA COLOR: 1. PINK SKIN: 1. WARM, DRY POSITION: 4. OTHER - SITTING VITALS: 1349 164/97 77-16 99% 1407 172/84 DISCHARGE: POST PAIN 0/10, DRESSING SITE DRY AND INTACT, IV SITE CLEAR, GAIT STEADY, TEACHING COMPLETED, PATIENT ACKNOWLEDGES UNDERSTANDING YES, PATIENT DISCHARGED AT 1410 PN TRIGGER POINT INJECTION WITH STEROIDS PRE PROCEDURE DIAGNOSIS 1. MYALGIA 2. PAIN AT BILATERAL THORACIC AREA AND BILATERAL NECK AREA POST PROCEDURE DIAGNOSIS 1. MYALGIA 2. PAIN AT BILATERAL THORACIC AREA AND BILATERAL NECK AREA PROCEDURE TRIGGER POINT INJECTION AT BILATERAL THORACIC AREA AND BILATERAL NECK AREA SURGEON DR. PANDA SO ORTHOPHOTOGRAPHY TECHNICIAN NONE ANESTHESIA LOCAL PRE PROCEDURE NOTE THE PATIENT HAS A HISTORY OF CHRONIC PAIN AT THE RIGHT AND LEFT THORACIC AREA AND RIGHT AND LEFT NECK AREA. I EVALUATED THE PATIENT AND REVIEWED THE CHART. THERE IS EVIDENCE OF BANDS OF TISSUE WITH RESTRICTION OF MOVEMENT AND PRESENCE OF TRIGGER POINT AT THE RIGHT AND LEFT THORACIC AREA AND RIGHT AND LEFT NECK AREA. I WENT OVER THE RISKS, ALTERNATIVES, AND BENEFITS ASSOCIATED WITH THIS PROCEDURE. I DISCUSSED THAT THE USE OF STEROIDS MAY CONTRIBUTE TO IMMUNOSUPPRESSION OF THE PATIENT'S BODY AGAINST INFECTIONS SUCH COVID-19. THE PATIENT IS AWARE OF THE POTENTIAL COMPLICATIONS ASSOCIATED WITH THIS VIRUS, INCLUDING, BUT NOT LIMITED TO, . THE PATIENT WOULD LIKE TO PROCEED AND GIVE CONSENT TO PERFORMED THE PROCEDURE. THE PATIENT DENIES UNEXPLAINABLE WEIGHT LOSS, FEVER, CHILLS, OR NEW CHANGES IN URINARY OR BOWEL CONTROL. THE PATIENT IS COVID-19 NEGATIVE DESCRIPTION OF PROCEDURE THE PATIENT WAS BROUGHT TO THE PROCEDURE ROOM AND PLACED IN THE SITTING POSITION. THE AREA WAS CLEANED WITH ALCOHOL. THE PROCEDURE WAS DONE USING ASEPTIC STERILE TECHNIQUE. I CHECKED LATERALITY AND THE LEVEL WHERE THE PROCEDURE WAS GOING TO BE PERFORMED WITH THE PATIENT AND THE SUPPORTING STAFF AT THE MOMENT OF THE TIME OUT IN THE PROCEDURE ROOM. USING A 25-GAUGE NEEDLE, TRIGGER POINTS WERE INJECTED AT THE RIGHT AND LEFT THORACIC AREA AND RIGHT AND LEFT NECK AREA WITH A TOTAL OF 40 ML OF BUPIVACAINE 0.25% AND DEXAMETHASONE 10 MG. THERE WAS NO EVIDENCE OF BLOOD, PARESTHESIA OR CEREBROSPINAL FLUID DURING THE PROCEDURE. THE PATIENT WAS SENT TO THE RECOVERY ROOM. THE PATIENT WAS MOVING THE EXTREMITIES AND DOING WELL. THERE WAS NO COMPLICATION DURING THE PROCEDURE. EBL LESS THAN 5 ML POST PROCEDURE NOTE THE PROCEDURE DONE WAS DISCUSSED WITH THE PATIENT. THE PATIENT WILL BE SEEN IN A FOLLOW UP IN THE NEXT FEW WEEKS. I AM LOOKING FOR LONG LASTING PAIN RELIEF FOR THE PATIENT WITH THIS INTERVENTION. INSTRUCTIONS WERE GIVEN, QUESTIONS WERE ANSWERED, AND THE PATIENT EXPRESSED UNDERSTANDING AND AGREES WITH THE PLAN. THE PATIENT IS AWARE TO STAY HOME FOR THE NEXT WEEK, IF POSSIBLE, DUE TO COVID-19. I, ROBERTO OLIVIA, DOCUMENTED THE ABOVE INFORMATION ACTING A SCRIBE FOR DR. SO. I HAVE REVIEWED THE ABOVE DOCUMENT, WRITTEN BY ROBERTO OLIVIA, DRAW STRING KNOTTER, AND I VERIFY THAT IT IS ACCURATE PROCEDURE CODES 89020 INJECT TRIGGER POINTS 3/> DISPOSITION & COMMUNICATION FOLLOW UP F/UP WITH HAZARDOUS SUBSTANCES SCIENTIST (REASON: POST TPI VERENICE THORACIC AND NECK) ELECTRONICALLY SIGNED BY PANDA SO MD, ON 09/16/2019 AT 04:57 PM EDT DISCLAIMER : THIS IS A VISIT SUMMARY EXTRACTED FROM THE [employer] CHART. IT IS NOT A COPY OF THE [email or web address] PROGRESS NOTE. MTDBeatrice
== END ==
LOC: M PAIN 12:15
PROVIDERS: ATTEND Anesthesiology
DX: M79.18 Myalgia, other site (principal)
CPT/HCPCS: 20553; J1100

== ENCOUNTER → 2019-09-17 | Outpatient (REF) | payer OTHER, MEDICAID ==
[~2019-09-17] MED LIST changes: -BUPIVACAINE HCL 0.25% 10ML VIAL As Ordered ONE; -BUPIVACAINE HCL 0.25% 30ML VIAL As Ordered ONE; -dexameTHASONE 10MG/1ML VIAL PRES.FREE (J1100 PER 1MG) As Ordered ONE; -diazePAM 5 MG TAB As Ordered ONE; -oxyCODONE 5MG TAB As Ordered ONE
[2019-09-17 17:23] LABS: CHOLESTEROL RISK RATIO 3.375 (<5)
== END ==
LOC: M LABDRWAD 16:14
PROVIDERS: ATTEND Nurse Practitioner Family
DX: E78.49 Other hyperlipidemia (principal)
CPT/HCPCS: 36415; 80061; G0463

== ENCOUNTER → 2019-09-18 | Outpatient (REF) | payer OTHER, MEDICAID ==
[~2019-09-18] MED LIST changes: -AMLO10TA5 PO; +AMLO1TAB25 PO; +CALC-212 PO; +CALC600T17 PO; -CALC600T6 PO; -CALC600T7 PO
[2019-09-18 15:46] LABS: MALB URINE SIEMENS 11.1 MG/L; MAU/CREAT RATIO 8.7 MCG/MG (0.0-30.0)
== END ==
LOC: M LAB REF 14:54
PROVIDERS: ATTEND Nurse Practitioner Family
DX: E11.22 Type 2 diabetes mellitus with diabetic chronic kidney disease (principal)

== ENCOUNTER → 2019-09-19 | Outpatient (CLI) | payer OTHER, MEDICAID ==
[~2019-09-19] MED LIST changes: +AMLO10TA5 PO; -AMLO1TAB25 PO; -CALC-212 PO; -CALC600T17 PO; +CALC600T6 PO; +CALC600T7 PO
--- NOTE | 2019-09-25 11:08 | SLEEPCENT ---
DATE OF PROCEDURE: 09/19/2019 ORDERED BY: Dayana Disla Nocturnal polysomnography was performed for evaluation of sleep physiology in this patient with a history of excessive somnolence and nonrestorative sleep who has the comorbidity of hypertension and a prior history of cerebrovascular disease. 7 hours and 41 minutes of data were reviewed. There were 420 minutes of sleep identified. Sleep latency was very short at 0.5 minutes. REM sleep was not achieved. Overall sleep efficiency was 92.5%, but sleep progression was poor with no evidence of REM cycling. The patient's electrocardiogram showed what appeared to be a sinus rhythm with somewhat wide complexes. Average heart rate 70 beats per minute. Electroencephalogram (EEG) showed normal waveforms for awake and sleep. There were 51 respiratory events identified of 10 seconds in duration or greater for an apnea-hypopnea index of 7.3. The events were primarily obstructive, not exclusive to sleep stage nor body posture. Arousals from respiratory events occurred 2.1 times per hour and oxygen desaturations were seen into the 80.s. Remaining measures of sleep physiology were fairly normal. IMPRESSION: Obstructive sleep apnea syndrome (G47.33). Apnea-hypopnea index 7.3. RECOMMENDATION: The patient should be encouraged to return to the sleep disorder center for pressure therapy. In the interim, alcohol and sedative avoidance should be practiced and caution exercised during the operation of motor vehicles.
== END ==
LOC: M SLEEP 20:00
PROVIDERS: ATTEND Nurse Practitioner Family
DX: G47.33 Obstructive sleep apnea (adult) (pediatric) (principal)

== ENCOUNTER 2019-09-23 13:00 | Outpatient (RCR) | payer OTHER, MEDICAID | END 2019-09-24 | LOC: M PT 13:00 | PROVIDERS: ATTEND Nurse Practitioner Family | DX: Z51.89 Encounter for other specified aftercare (principal); M54.6 Pain in thoracic spine; M79.18 Myalgia, other site; M54.2 Cervicalgia ==

== ENCOUNTER → 2019-10-10 | Outpatient (CLI) | payer OTHER, MEDICAID ==
[~2019-10-10] MED LIST changes: -AMLO10TA5 PO; +AMLO1TAB25 PO; +CALC-212 PO; +CALC600T17 PO; -CALC600T6 PO; -CALC600T7 PO
--- NOTE | 2019-10-15 04:46 | ECWPNPC ---
PATIENT NAME: PRUDENCIO SHAHID : 1965 GENDER: FEMALE VISIT DATE: 10/10/2019 DISCHARGE DATE: 10/10/19 1223 VISIT LOCKED DATE TIME: PHYSICIAN: YULISSA STAUFFER RESOURCE: YULISSA STAUFFER REASON FOR APPOINTMENT 1. POST TPI VERENICE THORACIC AND NECK HISTORY OF PRESENT ILLNESS GENERAL: HERE FOR POST PROCEDURE FOLLOW-UP. HAD BILATERAL THORACIC/NECK, TRIGGER POINT INJECTIONS ON 09/16/2019. REPORTING MARKED REDUCTION IN PAIN THAT CONTINUES TODAY. CHIEF AREA OF PAIN IS LOWER BACK. PAIN IS AGGRAVATED IN THIS REGION WITH RANGE OF JOINT MOTION OF THE SPINE. HAS RESPONDED WELL TO BILATERAL SACROILIAC JOINT INJECTIONS AND LUMBAR FACET INJECTIONS. REVIEWED MRI OF THE LS-SPINE. DISCUSSED TREATMENT OPTIONS. FALL RISK SCREENING: SCREENING :ONE FALL WITHOUT INJURY IN THE PAST YEAR FELL 03/01/19 INJURIED NECK IN PHYSICAL THERAPY FOR REHAB,, PATIENT REPORTS NOT SEEKING MEDICAL ATTENTION AT THE TIME OF INJURY. PAIN SCREENING: PATIENT HAS A COMPLAINT OF ACUTE OR CHRONIC PAIN :YES LOCATION OF PAIN:KNEES INTENSITY OF PAIN (SCALE OF 1 TO 10):8 WHAT DOES YOUR PAIN FEEL LIKE:STABBING, CONTINOUS BONE ON BONE DURATION:CONTINOUS, CONSTANT, AWAKENS FROM SLEEP PAIN IS INCREASED BY:ACTIVITIES, PROLONGED STANDING PAIN IS DECREASED BY:SITTING, OTHERS REPOSITIONING PAIN HAS INTERFERED WITH THE FOLLOWING:BATHING/DRESSING, MOOD, WALKING ABILITY, EMPLOYMENT, HOUSEWORK, SLEEP, RELATIONSHIP WITH OTHERS, ENJOYMENT OF LIFE, FOOD PREPARATION PLAN/GOALS/TREATMENT/INTERVENTION/FOLLOW UP:SEE PLAN NURSING NOTE: -. PAIN CENTER INTAKE QUESTIONS: DO YOU HAVE A HISTORY OF MRSA? :NO DO YOU TAKE A BLOOD THINNERS? :YES PLAVIX DO YOU HAVE ANY BLEEDING DISORDERS? :NO ANY NEW NUMBNESS OR WEAKNESS IN YOUR LEGS OR ARMS? :NO ANY PACEMAKER,DEFIBRILLATOR, OR DORSAL COLUMN STIMULATOR? :YES PACEMAKER LEFT SIDE OF CHEST DO YOU HAVE ANY RASHES OR OPEN SORES? :NO ARE YOU ALLERGIC TO IV DYE? :NO ARE YOU DIABETIC? :YES 172 10/10/19 AT 0900 ANY NEW PROBLEMS WITH YOUR MEDICATIONS? :NO HAVE YOU RECEIVED A VACCINE IN THE PAST 30 DAYS? :NO DO YOU PLAN TO RECEIVE A VACCINE IN THE NEXT 21 DAYS? :NO DO YOU NEED ANY PRESCRIPTION? :YES GABAPENTIN DO YOU TAKE ANY IMMUNOSUPPRESSIVE MEDICATIONS? :NO IS THERE A CHANCE YOU COULD BE ? :NO ARE YOU BREAST FEEDING? :NO CURRENT MEDICATIONS TAKING HUMALOG 100 UNIT/ML SOLUTION SLIDING SCALE, IF BLOOD SUGAR IS 150 PT TAKES 14 UNITS, IF IT IS HIGHER THAN THAT 14 UNITS SUBCUTANEOUS SLIDING SCALE, MDD 24 UNITS, NOTES: 09/15/191729 TAKING DRISDOL 84514 UNIT CAPSULE 1 CAPSULE ORALLY WEEKLY, NOTES: 09/12/19 TAKING MAGNESIUM OXIDE 400 MG TABLET 1 TABLET ORALLY ONCE A DAY, NOTES: 09/15/191729 TAKING ZONISAMIDE 25 MG CAPSULE 1 CAPSULES ORALLY BEFORE BEDTIME, NOTES: 09/15/192099 TAKING ASPIR-81 81 MG TABLET DELAYED RELEASE 1 TABLET ORALLY ONCE A DAY, NOTES: 09/16/19929 TAKING CALCIUM 600 + D 600-400 MG-UNIT TABLET 1 TABLET ORALLY ONCE A DAY, NOTES: 09/16/19929 TAKING MAY HAVE - - DIRECTED PATIENT WOULD BENEFIT FROM A COMPENSATION ADMINISTRATOR ANIMAL DUE TO PSHCYOLOGICAL AND CARDIAC ISSUES TAKING EFFEXOR XR 75 MG CAPSULE EXTENDED RELEASE 24 HOUR 1 CAPSULE WITH FOOD ORALLY ONCE A DAY, NOTES: 09/16/19929 TAKING PLAVIX 75 MG TABLET 1 TABLET ORALLY ONCE A DAY, NOTES: 09/16/19929 TAKING ABILIFY MAINTENA 300 MG PREFILLED SYRINGE INTRAMUSCULAR MONTHLY, NOTES: 08/30/19 TAKING ZOFRAN 4 MG TABLET 1 TABLETS ORALLY TWICE A DAY NEEDED FOR NAUSEA/VOMITING, NOTES: NONE RECENTLY TAKING COLACE 100 MG CAPSULE 1 CAPSULE NEEDED ORALLY ONCE A DAY, NOTES: NONE RECENTLY TAKING LEVEMIR FLEXPEN 100 UNIT/ML SOLUTION 20 UNITS SUBCUTANEOUS TWICE A DAY, NOTES: 09/15/191729 TAKING VICTOZA 18 MG/3ML SOLUTION PEN-INJECTOR 1.8 ML SUBCUTANEOUS ONCE A DAY, NOTES: 09/15/19929 TAKING LISINOPRIL 20 MG TABLET 1/2 TABLET ORALLY ONCE A DAY, NOTES: 09/16/19929 TAKING HYDROCHLOROTHIAZIDE 25 MG TABLET 1 TABLET IN THE MORNING ORALLY ONCE A DAY, NOTES: 09/16/19929 TAKING LIDOCAINE-PRILOCAINE 2.5-2.5 % CREAM DIRECTED TO LOW BACK EXTERNALLY TID PRN, NOTES: 09/16/19929 TAKING PRAVASTATIN SODIUM 40 MG TABLET 1 TABLET ORALLY ONCE A DAY, NOTES: 09/16/19929 TAKING ALBUTEROL SULFATE (2.5 MG/3ML) 0.083% NEBULIZATION SOLUTION 3 ML INHALATION QID PRN, NOTES: NONE RECENTLY TAKING FENOFIBRATE 48 MG TABLET 1 TABLET ORALLY ONCE A DAY, NOTES: 09/16/19929 TAKING PROAIR HFA 108 (90 BASE) MCG/ACT AEROSOL SOLUTION 2 PUFFS NEEDED INHALATION EVERY 6 HRS NEEDED, NOTES: 09/15/19929 TAKING METHENAMINE HIPPURATE 1 GM TABLET 1 TABLET ORALLY TWICE A DAY, NOTES: 09/15/191729 TAKING TYLENOL WITH CODEINE #3 300-30 MG TABLET 1 ORALLY Q8H PRN MDD3, NOTES: 09/14/19 TAKING ACTOS 45MG TABLET 1 TABLET ORALLY ONCE A DAY, NOTES: 09/15/19929 TAKING AMLODIPINE BESYLATE 2.5 MG TABLET 1 TABLET ORALLY ONCE A DAY, NOTES: 09/16/19929 TAKING GABAPENTIN 100 MG CAPSULE 2 CAPSULES ORALLY BID, NOTES: 09/16/19929 TAKING ALIGN - CAPSULE DIRECTED ORALLY DAILY, NOTES: 09/16/19929 TAKING CETIRIZINE HCL 10MG TABLET TAKE ONE TABLET BY MOUTH ONCE DAILY NEEDED NOT-TAKING DECONGESTANT - TABLET EXTENDED RELEASE DIRECTED ORALLY , NOTES: NONE RECENTLY NOT-TAKING BACID - CAPSULE 2 CAPS ORALLY THREE TIMES DAILY WITH MEALS, NOTES: 09/16/19929 MEDICATION LIST REVIEWED AND RECONCILED WITH THE PATIENT PAST MEDICAL HISTORY HYPERLIPIDEMIA DIABETES MELLITUS - WITH NON-PROLIFERATIVE RETINOPATHY LEFT EYE PER CENTER FOR SIGHT 06/2013. 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 DIFFUSE DISC BULGES AT THE L1-2 AND L3-4 LEVELS WITH MINIMAL THECAL SAC. 2. MINIMAL CENTRAL CANAL STENOSIS AT THE L4-5 LEVEL SECONDARY TO DISC BULGE, - CHRONIC PAIN MANAGEMENT THROUGH DR[facility] SO [facility]) CKD STAGE 3 C. DIFF 10/2017 & 11/2017 & 02/2018 - S/P STOOL TRANSPLANT; STOOL TRANSPLANT 06/12 RECURRENT UTIS S/P PACER 01/2019 MRI BRAIN 01/2019 - TINY LACUNAR INFARCT - OLD ADAN - STARTING CPAP 08/2019 ALLERGIES SEASONAL: NASAL CONGESTION - ALLERGY PEPTO BISMOL: THROAT SWELLS - ALLERGY METFORMIN HCL: CKD - METFORMIN STOPPED BY NEPHRO. 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 1 SON(S) , 2 DAUGHTER(S) - HEALTHY. ONE BROTHER FROM CARDIAC COMPLICATION\\\\\\\\NDAUGHTERS HAVE DEPRESSION. SOCIAL HISTORY GENERAL: TOBACCO USE ARE YOU A:FORMER SMOKER HOW LONG HAS IT BEEN SINCE YOU LAST SMOKED?> 10 YEARS LATEX QUESTIONNAIRE LATEX ALLERGY : HAVE YOU EVER DEVELOPED ANY TYPE OF REACTION AFTER HANDLING LATEX PRODUCTS SUCH RUBBER GLOVES, CONDOMS, DIAPHRAGMS, BALLOONS, SOCKS, OR UNDERWEAR?NO LATEX ALLERGY : HAVE YOU EVER DEVELOPED ANY TYPE OF REACTION DURING OR AFTER DENTAL APPOINTMENT, VAGINAL/RECTAL EXAMINATION, SURGICAL PROCEDURE, OR ANY OTHER EXPOSURE?NO LATEX RISK : HAVE YOU EVER HAD ANY DIFFICULTY BREATHING OR HIVES AFTER EATING OR HANDLING ANY FRUITS, OR VEGETABLES; SUCH KIWI, BANANAS, STONE FRUITS, OR CHESTNUTSNO LATEX RISK : DO YOU HAVE A PREVIOUS PERSONAL HISTORY OF MORE THAN NINE SURGERIES, SPINA BIFIDA, OR REPEATED CATHERIZATIONS? NO LATEX RISK : ARE YOU FREQUENTLY EXPOSED TO LATEX PRODUCTS IN YOUR OCCUPATION?NO DATE ASKED : 10/10/2019 LUNG CANCER SCREENING SMOKING STATUS:FORMER SMOKER BMI CARE GOAL FOLLOW-UP ABOVE NORMAL BMI FOLLOW-UPDIETARY MANAGEMENT EDUCATION, GUIDANCE, AND COUNSELING ALCOHOL SCREENING DID YOU HAVE A DRINK CONTAINING ALCOHOL IN THE PAST YEAR?NO POINTS0 INTERPRETATIONNEGATIVE RECREATIONAL DRUG USE DRUG USE?NO CAFFEINE CAFFEINE USE?YES 1CUP COFFEE SEXUAL HX HAD SEX IN THE LAST 12 MONTHS (VAGINAL, ORAL, OR ANAL)?NO LMP:02/2016 HAVE YOU EVER HAD AN STD?NO HIV / HEP-C SCREENING HIV TEST OFFERED TO PATIENT:YES DATE OFFERED:06/30/2016 TEST ACCEPTED:NO REASON:PATIENT DECLINED BROCHURE PROVIDED TO PATIENTNO ADVENT [id number] TAOIST LANGUAGE LANGUAGES SPOKEN:FAROESE LEARNING BARRIERS / SPECIAL NEEDS CHANGE FROM LAST VISIT?NO BARRIERS TO LEARNING?NO HEARING IMPAIRED?NO VISION IMPAIRED?YES :CORRECTIVE LENSES COGNITIVELY IMPAIRED?NO READINESS TO LEARN?YES LEARNING PREFERENCES?NO LEARNING CAPABILITIES PRESENT?YES EMOTIONAL BARRIERS?NO SPECIAL DEVICES?NO ASSEMBLER PRODUCTION LINE NEEDED?NO DOMESTIC VIOLENCE DO YOU FEEL SAFE IN YOUR ENVIRONMENT?YES DIET: NO CONCENTRATED SWEETS., CARBOHYDRATE CONTROLLED, LOW FAT, LOW CHOLESTEROL. EXERCISE: WALKS 1 MILE WEATHER PERMITTING. MARITAL STATUS: .. OTHERS AT HOME: CHILD DAUGHTER. PAIN CLINIC PFS, CLERGY, PUBLIC HEALTH REFERRALS PFS REFERRAL NEEDED?NO CLERGY REFERRAL NEEDED?NO PUBLIC HEALTH REFERRAL NEEDED?NO WAS THE PROVIDER NOTIFIED OF ANY PERTINENT INFO?YES N/A HAS THE PATIENT BEEN EDUCATED REGARDING HIS/HER PLAN OF CARE?YES HAS THE PATIENT BEEN EDUCATED REGARDING PAIN, THE RISK FOR PAIN, THE IMPORTANCE OF EFFECTIVE PAIN MANAGEMENT, AND THE PAIN ASSESSMENT PROCESS?YES ADVANCE DIRECTIVE ADVANCE DIRECTIVE DISCUSSED WITH PATIENT:YES PT HAS HCP USMAN ROBERTS [phone] HOSPITALIZATION/MAJOR DIAGNOSTIC PROCEDURE 3 DAYS FOR TIA 06/2013 SURGERIES PACER ACTING UP, OBSERVED REVIEW OF SYSTEMS CONSTITUTIONAL: ANY RECENT FEVER NO . CHILLS NO . WEIGHT CHANGE OF UNKNOWN REASONS NO . GASTROENTEROLOGY: NEW UNEXPLAINABLE CHANGES IN BOWEL CONTROL NO . CONSTIPATION NO . GENITOURINARY: ANY NEW CHANGE IN BLADDER CONTROL? NO . NEUROLOGY: NEW ONSET DIZZINESS OR NEUROLOGICAL CHANGES NOT MENTIONED NO . NEW NUMBNESS OR PAIN PATTERNS NOT MENTIONED AND PERTINENT TO TODAY'S VISIT NO . CARDIOLOGY: NEW CHEST PRESSURE NO . NEW CHEST PAIN NO . RESPIRATORY: UNEXPLAINABLE COUGH NO . NEW SHORTNESS OF BREATH NO . VITAL SIGNS WT 255.2 LBS, HT 64.25 IN, BMI 43.46 INDEX, BP 148/87 MM HG, HR 99 /MIN, RR 18 /MIN, TEMP 96 F, OXYGEN SAT % 96%, SAFE IN ENV? (Y/N) Y, NA INITIALS SC 10:45, REVIEWED BY: MT. EXAMINATION GENERAL EXAMINATION: GENERAL ALERT,NO DISTRESS . PSYCH AFFECT NORMAL . LUNGS: LUNG SOUNDS ARE CLEAR . HEART: HEART RATE REGULAR . MUSCULOSKELETAL: MST 5/5 BILAT. LOWER EXTREMITIES . LUMBAR: TENDERNESS BILAT. SIJ , RIGHT GREATER THAN LEFT. POSITIVE MALINI'S TESTING BILATERAL LOWER EXTREMITIES.. ASSESSMENTS SACROILIITIS - M46.1 (PRIMARY) TREATMENT SACROILIITIS NOTES: BILATERAL SIJ. PREVENTIVE MEDICINE PAIN CLINIC TEACHING: THE PATIENT HAS BEEN EDUCATED REGARDING HIS/HER PLAN OF CARE : PATIENT PROVIDED PATIENT TEACHING ABOUT BILATERAL SACROILIAC JOINT INJECTIONS, REVIEWED AND SIGNED PRE PROCEDURE INSTRUCTIONS WITH PATIENT, PATIENT VERBALIZES UNDERSTANDING. PROCEDURE CODES FA211 ESTABILISHED PATIENT [facility] CHARGE DISPOSITION & COMMUNICATION FOLLOW UP POST PROCEDURE (REASON: BILATERAL SIJ) ELECTRONICALLY SIGNED BY GAY CEDEÑO ON 10/14/2019 AT 09:54 AM EDT DISCLAIMER : THIS IS A VISIT SUMMARY EXTRACTED FROM THE [employer] CHART. IT IS NOT A COPY OF THE [employer] PROGRESS NOTE. MARYLOU
== END ==
LOC: M PAIN 10:15
PROVIDERS: ATTEND Nurse Practitioner Family
DX: M46.1 Sacroiliitis, not elsewhere classified (principal)

== ENCOUNTER 2019-10-23 12:15 | Outpatient (RCR) | payer OTHER, MEDICAID | END 2019-10-25 | LOC: M PT 12:15 | PROVIDERS: ATTEND Nurse Practitioner Family | DX: M54.6 Pain in thoracic spine (principal); M54.2 Cervicalgia; M79.18 Myalgia, other site ==

== ENCOUNTER 2019-10-28 13:00 | Outpatient (RCR) | payer OTHER, MEDICAID | END 2019-11-25 | LOC: M PT 13:00 | PROVIDERS: ATTEND Nurse Practitioner Family | DX: M54.6 Pain in thoracic spine (principal); M79.18 Myalgia, other site; M54.2 Cervicalgia ==

== ENCOUNTER → 2019-11-05 | Outpatient (POV) | payer OTHER, MEDICAID ==
[~2019-11-05] MED LIST changes: +BUPIVACAINE HCL 0.25% 30ML VIAL ONE; +ISOVUE-M 300 61% 15ML VIAL ONE; +LIDOCAINE 1% SDV 30ML VIAL ONE; +TRIAMCINOLONE ACETONIDE SUSP 40 MG/ML VIAL (J3301) ONE; +diazePAM 5 MG TAB ONE; +oxyCODONE 5MG TAB ONE
--- NOTE | 2019-12-20 07:33 | REP ---
C-ARM VIEWS OF THE SACROILIAC JOINTS: 3-VIEWS HISTORY: Pain. FINDINGS: 3 C-arm views of bilateral sacroiliac joints performed during sacroiliac joint injections by Dr. Gomez. The needle overlies each sacroiliac joint. 1 minute 16 seconds fluoroscopy time utilized. MARYLOU
== END ==
LOC: M PAIN 09:15
PROVIDERS: ATTEND Anesthesiology
DX: M46.1 Sacroiliitis, not elsewhere classified (principal)

== ENCOUNTER → 2019-11-19 | Outpatient (CLI) | payer OTHER, MEDICAID ==
[~2019-11-19] MED LIST changes: -BUPIVACAINE HCL 0.25% 30ML VIAL ONE; -ISOVUE-M 300 61% 15ML VIAL ONE; -LIDOCAINE 1% SDV 30ML VIAL ONE; -TRIAMCINOLONE ACETONIDE SUSP 40 MG/ML VIAL (J3301) ONE; -diazePAM 5 MG TAB ONE; -oxyCODONE 5MG TAB ONE
== END ==
LOC: M PAIN 09:14
PROVIDERS: ATTEND Nurse Practitioner Family
DX: M46.1 Sacroiliitis, not elsewhere classified (principal); M79.18 Myalgia, other site

== ENCOUNTER → 2019-11-22 | Outpatient (CLI) | payer OTHER, MEDICAID ==
--- NOTE | 2019-11-30 08:27 | SLEEPCENT ---
DATE: 11/22/2019 ORDERED BY: Dr. Dayana Disla Nocturnal polysomnography was performed for the titration of pressure therapy in this patient with obstructive sleep apnea syndrome. For testing, a [employer] AirFit P30 nasal pillows device of small size was used with a chin strap. There was 4 cm of water pressure applied to the circuit, and the lights were extinguished. There was 7 hours and 41 minutes of data reviewed. There was 335.5 minutes of sleep identified. Sleep latency was short at 5 minutes. REM sleep as not achieved. Overall sleep architecture was fragmented with poor progression and a period of wake around 2 a.m., which resulted in a reduced sleep efficiency of 75%. The electrocardiogram showed a sinus rhythm with average heart rate of 64 beats per minute. EEG showed some alpha intrusion and coursing in the background, otherwise normal waveforms for wake and sleep. No focal events were identified. Respiratory events were reasonably palliated with CPAP at a pressure of +7. A brief trial of bilevel therapy resulted in the emergence of central events. IMPRESSION: Obstructive sleep apnea syndrome (G47.33). RECOMMENDATION: Initiation of pressure therapy at 7 cm of water would seem reasonable based on this titration study. Of note, however, the patient did not achieve REM sleep, and close clinical followup will be necessary. MTDD
== END ==
LOC: M SLEEP 20:00
PROVIDERS: ATTEND Nurse Practitioner Family
DX: G47.33 Obstructive sleep apnea (adult) (pediatric) (principal)

== ENCOUNTER → 2019-12-04 | Outpatient (CLI) | payer OTHER, MEDICAID | LOC: M LABSMTC 10:13 | PROVIDERS: ATTEND Anesthesiology | DX: Z20.828 Contact with and (suspected) exposure to other viral communicable diseases (principal) | CPT/HCPCS: C9803; U0003 ==

== ENCOUNTER → 2019-12-09 | Outpatient (CLI) | payer OTHER, MEDICAID ==
[~2019-12-09] MED LIST changes: +BUPIVACAINE HCL 0.25% 10ML VIAL As Ordered ONE; +BUPIVACAINE HCL 0.25% 30ML VIAL As Ordered ONE; +TRIAMCINOLONE ACETONIDE SUSP 40 MG/ML VIAL (J3301) As Ordered ONE; +diazePAM 2 MG TAB As Ordered ONE; +oxyCODONE 5MG TAB As Ordered ONE
== END ==
LOC: M PAIN 08:23
PROVIDERS: ATTEND Anesthesiology
DX: M79.18 Myalgia, other site (principal)
CPT/HCPCS: 20552; G0463; J3301

== ENCOUNTER → 2020-01-03 | Outpatient (CLI) | payer OTHER, MEDICAID ==
[~2020-01-03] MED LIST changes: -BUPIVACAINE HCL 0.25% 10ML VIAL As Ordered ONE; -BUPIVACAINE HCL 0.25% 30ML VIAL As Ordered ONE; -TRIAMCINOLONE ACETONIDE SUSP 40 MG/ML VIAL (J3301) As Ordered ONE; -diazePAM 2 MG TAB As Ordered ONE; -oxyCODONE 5MG TAB As Ordered ONE
--- NOTE | 2020-01-08 16:10 | ECWPNPC ---
PATIENT NAME: PRUDENCIO SHAHID : 1965 GENDER: FEMALE VISIT DATE: 01/03/2020 DISCHARGE DATE: 01/03/20 1205 VISIT LOCKED DATE TIME: PHYSICIAN: YULISSA STAUFFER PHYSICIAN PAGER NO: ACTIVE RESOURCE: YULISSA STAUFFER REASON FOR APPOINTMENT 1. POST TPI RIGHT THORACIC HISTORY OF PRESENT ILLNESS GENERAL: HERE FOR POST PROCEDURE F/U.HAD TPI RIGHT THORACIC ON 12/09/2019.REPORTING MARKED REDUCTION IN PAIN THAT CONTINUES TODAY.RATING PAIN VAS 0/10.FINISHED PT FOR HER NECK ONE MONTH AGO.STATES THAT IT WAS HELPFUL AND SHE CONTINUES HOME EXCERSISE.HAS NOT NEEDED TO TAKE PAIN MEDICATION. -. FALL RISK SCREENING: SCREENING :ONE FALL WITH INJURY IN THE PAST YEAR 03/01/19 FALL INJURY TO NECK SOUGHT MEDICAL ATTENTION PAIN SCREENING: PATIENT HAS A COMPLAINT OF ACUTE OR CHRONIC PAIN :NO NURSING NOTE: -. PAIN CENTER INTAKE QUESTIONS: DO YOU HAVE A HISTORY OF MRSA? :NO DO YOU TAKE A BLOOD THINNERS? :YES PLAVIX DO YOU HAVE ANY BLEEDING DISORDERS? :NO ANY NEW NUMBNESS OR WEAKNESS IN YOUR LEGS OR ARMS? :NO ANY PACEMAKER,DEFIBRILLATOR, OR DORSAL COLUMN STIMULATOR? :YES PACEMAKER DO YOU HAVE ANY RASHES OR OPEN SORES? :NO ARE YOU ALLERGIC TO IV DYE? :NO ARE YOU DIABETIC? :YES ANY NEW PROBLEMS WITH YOUR MEDICATIONS? :NO HAVE YOU RECEIVED A VACCINE IN THE PAST 30 DAYS? :NO DO YOU PLAN TO RECEIVE A VACCINE IN THE NEXT 21 DAYS? :YES IF SO WHAT VACCINE AND WHEN? YES DO YOU NEED ANY PRESCRIPTION? :NO DO YOU TAKE ANY IMMUNOSUPPRESSIVE MEDICATIONS? :NO IS THERE A CHANCE YOU COULD BE ? :NO ARE YOU BREAST FEEDING? :NO CURRENT MEDICATIONS TAKING HUMALOG 100 UNIT/ML SOLUTION SLIDING SCALE, IF BLOOD SUGAR IS 150 PT TAKES 14 UNITS, IF IT IS HIGHER THAN THAT 14 UNITS SUBCUTANEOUS SLIDING SCALE, MDD 24 UNITS, NOTES: 09/15/19 1730 TAKING DRISDOL 98309 UNIT CAPSULE 1 CAPSULE ORALLY WEEKLY, NOTES: 09/12/19 TAKING MAGNESIUM OXIDE 400 MG TABLET 1 TABLET ORALLY ONCE A DAY, NOTES: 09/15/19 1730 TAKING ZONISAMIDE 25 MG CAPSULE 1 CAPSULES ORALLY BEFORE BEDTIME, NOTES: 09/15/19 2100 TAKING ASPIR-81 81 MG TABLET DELAYED RELEASE 1 TABLET ORALLY ONCE A DAY, NOTES: 09/16/19929 TAKING CALCIUM 600 + D 600-400 MG-UNIT TABLET 1 TABLET ORALLY ONCE A DAY, NOTES: 09/16/19929 TAKING MAY HAVE - - DIRECTED PATIENT WOULD BENEFIT FROM A BATTERY ASSEMBLER ANIMAL DUE TO PSHCYOLOGICAL AND CARDIAC ISSUES TAKING EFFEXOR XR 75 MG CAPSULE EXTENDED RELEASE 24 HOUR 1 CAPSULE WITH FOOD ORALLY ONCE A DAY, NOTES: 09/16/19929 TAKING PLAVIX 75 MG TABLET 1 TABLET ORALLY ONCE A DAY, NOTES: 09/16/19929 TAKING ABILIFY MAINTENA 300 MG PREFILLED SYRINGE INTRAMUSCULAR MONTHLY, NOTES: 08/30/19 TAKING ZOFRAN 4 MG TABLET 1 TABLETS ORALLY TWICE A DAY NEEDED FOR NAUSEA/VOMITING, NOTES: NONE RECENTLY TAKING COLACE 100 MG CAPSULE 1 CAPSULE NEEDED ORALLY ONCE A DAY, NOTES: NONE RECENTLY TAKING LEVEMIR FLEXPEN 100 UNIT/ML SOLUTION 20 UNITS SUBCUTANEOUS TWICE A DAY, NOTES: 09/15/191729 TAKING VICTOZA 18 MG/3ML SOLUTION PEN-INJECTOR 1.8 ML SUBCUTANEOUS ONCE A DAY, NOTES: 09/15/19929 TAKING LISINOPRIL 20 MG TABLET 1/2 TABLET ORALLY ONCE A DAY, NOTES: 09/16/19929 TAKING HYDROCHLOROTHIAZIDE 25 MG TABLET 1 TABLET IN THE MORNING ORALLY ONCE A DAY, NOTES: 09/16/19929 TAKING LIDOCAINE-PRILOCAINE 2.5-2.5 % CREAM DIRECTED TO LOW BACK EXTERNALLY TID PRN, NOTES: 09/16/19929 TAKING PRAVASTATIN SODIUM 40 MG TABLET 1 TABLET ORALLY ONCE A DAY, NOTES: 09/16/19929 TAKING ALBUTEROL SULFATE (2.5 MG/3ML) 0.083% NEBULIZATION SOLUTION 3 ML INHALATION QID PRN, NOTES: NONE RECENTLY TAKING PROAIR HFA 108 (90 BASE) MCG/ACT AEROSOL SOLUTION 2 PUFFS NEEDED INHALATION EVERY 6 HRS NEEDED, NOTES: 09/15/19929 TAKING TYLENOL WITH CODEINE #3 300-30 MG TABLET 1 ORALLY Q8H PRN MDD3, NOTES: 09/14/19 TAKING ACTOS 45MG TABLET 1 TABLET ORALLY ONCE A DAY, NOTES: 09/15/19929 TAKING AMLODIPINE BESYLATE 2.5 MG TABLET 1 TABLET ORALLY ONCE A DAY, NOTES: 6/22/20 0930 TAKING GABAPENTIN 100 MG CAPSULE 2 CAPSULES ORALLY BID, NOTES: 09/16/19929 TAKING ALIGN - CAPSULE DIRECTED ORALLY DAILY, NOTES: 09/16/19929 TAKING CETIRIZINE HCL 10MG TABLET TAKE ONE TABLET BY MOUTH ONCE DAILY NEEDED TAKING METHENAMINE HIPPURATE 1 GM TABLET TAKE 1 TABLET TWICE DAILY TAKING FENOFIBRATE 48 MG TABLET TAKE 1 TABLET EVERY DAY NOT-TAKING DECONGESTANT - TABLET EXTENDED RELEASE DIRECTED ORALLY , NOTES: NONE RECENTLY NOT-TAKING BACID - CAPSULE 2 CAPS ORALLY THREE TIMES DAILY WITH MEALS, NOTES: 09/16/19929 MEDICATION LIST REVIEWED AND RECONCILED WITH THE PATIENT PAST MEDICAL HISTORY HYPERLIPIDEMIA DIABETES MELLITUS - WITH NON-PROLIFERATIVE RETINOPATHY LEFT EYE PER CENTER FOR SIGHT 06/2013. 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 DIFFUSE DISC BULGES AT THE L1-2 AND L3-4 LEVELS WITH MINIMAL THECAL SAC. 2. MINIMAL CENTRAL CANAL STENOSIS AT THE L4-5 LEVEL SECONDARY TO DISC BULGE, - CHRONIC PAIN MANAGEMENT THROUGH [facility] SO [facility]) CKD STAGE 3 C. DIFF 10/2017 & 11/2017 & 02/2018 - S/P STOOL TRANSPLANT; STOOL TRANSPLANT 06/12 RECURRENT UTIS S/P PACER 01/2019 MRI BRAIN 01/2019 - TINY LACUNAR INFARCT - OLD ADAN - STARTING CPAP 08/2019 ALLERGIES SEASONAL: NASAL CONGESTION - ALLERGY PEPTO BISMOL: THROAT SWELLS - ALLERGY METFORMIN HCL: CKD - METFORMIN STOPPED BY NEPHRO. 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 1 SON(S) , 2 DAUGHTER(S) - HEALTHY. ONE BROTHER FROM CARDIAC COMPLICATION\\\\\\\\NDAUGHTERS HAVE DEPRESSION. SOCIAL HISTORY GENERAL: TOBACCO USE ARE YOU A:FORMER SMOKER HOW LONG HAS IT BEEN SINCE YOU LAST SMOKED?> 10 YEARS LATEX QUESTIONNAIRE LATEX ALLERGY : HAVE YOU EVER DEVELOPED ANY TYPE OF REACTION AFTER HANDLING LATEX PRODUCTS SUCH RUBBER GLOVES, CONDOMS, DIAPHRAGMS, BALLOONS, SOCKS, OR UNDERWEAR?NO LATEX ALLERGY : HAVE YOU EVER DEVELOPED ANY TYPE OF REACTION DURING OR AFTER DENTAL APPOINTMENT, VAGINAL/RECTAL EXAMINATION, SURGICAL PROCEDURE, OR ANY OTHER EXPOSURE?NO DATE ASKED : 10/10/2019 LATEX RISK : HAVE YOU EVER HAD ANY DIFFICULTY BREATHING OR HIVES AFTER EATING OR HANDLING ANY FRUITS, OR VEGETABLES; SUCH KIWI, BANANAS, STONE FRUITS, OR CHESTNUTSNO LATEX RISK : DO YOU HAVE A PREVIOUS PERSONAL HISTORY OF MORE THAN NINE SURGERIES, SPINA BIFIDA, OR REPEATED CATHERIZATIONS? NO LATEX RISK : ARE YOU FREQUENTLY EXPOSED TO LATEX PRODUCTS IN YOUR OCCUPATION?NO LUNG CANCER SCREENING SMOKING STATUS:FORMER SMOKER BMI CARE GOAL FOLLOW-UP ABOVE NORMAL BMI FOLLOW-UPDIETARY MANAGEMENT EDUCATION, GUIDANCE, AND COUNSELING ALCOHOL SCREENING DID YOU HAVE A DRINK CONTAINING ALCOHOL IN THE PAST YEAR?NO POINTS0 INTERPRETATIONNEGATIVE RECREATIONAL DRUG USE DRUG USE?NO CAFFEINE CAFFEINE USE?YES 1CUP COFFEE SEXUAL HX HAD SEX IN THE LAST 12 MONTHS (VAGINAL, ORAL, OR ANAL)?NO LMP:02/2016 HAVE YOU EVER HAD AN STD?NO HIV / HEP-C SCREENING HIV TEST OFFERED TO PATIENT:YES DATE OFFERED:06/30/2016 TEST ACCEPTED:NO REASON:PATIENT DECLINED BROCHURE PROVIDED TO PATIENTNO MANDAEN [id number] PRESYBETERIAN LANGUAGE LANGUAGES SPOKEN:LITHUANIAN LEARNING BARRIERS / SPECIAL NEEDS CHANGE FROM LAST VISIT?NO BARRIERS TO LEARNING?NO HEARING IMPAIRED?NO VISION IMPAIRED?YES COGNITIVELY IMPAIRED?NO :CORRECTIVE LENSES READINESS TO LEARN?YES LEARNING PREFERENCES?NO LEARNING CAPABILITIES PRESENT?YES EMOTIONAL BARRIERS?NO SPECIAL DEVICES?NO POLITICAL ORGANIZER NEEDED?NO DOMESTIC VIOLENCE DO YOU FEEL SAFE IN YOUR ENVIRONMENT?YES DIET: NO CONCENTRATED SWEETS., CARBOHYDRATE CONTROLLED, LOW FAT, LOW CHOLESTEROL. EXERCISE: WALKS 1 MILE WEATHER PERMITTING. MARITAL STATUS: .. OTHERS AT HOME: CHILD DAUGHTER. PAIN CLINIC PFS, CLERGY, PUBLIC HEALTH REFERRALS PFS REFERRAL NEEDED?NO CLERGY REFERRAL NEEDED?NO PUBLIC HEALTH REFERRAL NEEDED?NO WAS THE PROVIDER NOTIFIED OF ANY PERTINENT INFO?YES N/A HAS THE PATIENT BEEN EDUCATED REGARDING HIS/HER PLAN OF CARE?YES HAS THE PATIENT BEEN EDUCATED REGARDING PAIN, THE RISK FOR PAIN, THE IMPORTANCE OF EFFECTIVE PAIN MANAGEMENT, AND THE PAIN ASSESSMENT PROCESS?YES ADVANCE DIRECTIVE ADVANCE DIRECTIVE DISCUSSED WITH PATIENT:YES PT HAS HCP [facility] ROBERTS [phone] HOSPITALIZATION/MAJOR DIAGNOSTIC PROCEDURE 3 DAYS FOR TIA 06/2013 SURGERIES PACER ACTING UP, OBSERVED REVIEW OF SYSTEMS CONSTITUTIONAL: ANY RECENT FEVER NO . CHILLS NO . WEIGHT CHANGE OF UNKNOWN REASONS NO . GASTROENTEROLOGY: NEW UNEXPLAINABLE CHANGES IN BOWEL CONTROL NO . CONSTIPATION NO . GENITOURINARY: ANY NEW CHANGE IN BLADDER CONTROL? NO . NEUROLOGY: NEW ONSET DIZZINESS OR NEUROLOGICAL CHANGES NOT MENTIONED NO . NEW NUMBNESS OR PAIN PATTERNS NOT MENTIONED AND PERTINENT TO TODAY'S VISIT NO . CARDIOLOGY: NEW CHEST PRESSURE NO . NEW CHEST PAIN NO . RESPIRATORY: UNEXPLAINABLE COUGH NO . NEW SHORTNESS OF BREATH NO . VITAL SIGNS WT 252.6 LBS, HT 64.25 IN, BMI 43.02 INDEX, BP 192/92 MM HG, REPEAT BP 152/88 /MANUAL, HR 93 /MIN, RR 18 /MIN, TEMP 96.7 F, OXYGEN SAT % 94%, SAFE IN ENV? (Y/N) Y, NA INITIALS SC 11:34, REVIEWED BY: MT. EXAMINATION GENERAL EXAMINATION: GENERALAWAKE,ALERT ,PLEASANT . PSYCHAFFECT NORMAL . LUNGS:LUNG TOWNSEND ARE CLEAR TO AUSCULTATION BILATERALLY. GOOD MOVEMENT OF AIR . HEART:S1, S2 IN A REGULAR RATE AND RHYTHM. NO SIGNIFICANT MURMURS, RUBS OR GALLOPS NOTED . ASSESSMENTS CHRONIC MIDLINE THORACIC BACK PAIN - M54.6 (PRIMARY) MYALGIA, OTHER SITE - M79.18 CERVICALGIA - M54.2 TREATMENT CHRONIC MIDLINE THORACIC BACK PAIN CONTINUE GABAPENTIN CAPSULE, 100 MG, 2 CAPSULES, ORALLY, BID, NOTES: 09/16/19929 CONTINUE LIDOCAINE-PRILOCAINE CREAM, 2.5-2.5 %, DIRECTED TO LOW BACK, EXTERNALLY, TID PRN, NOTES: 09/16/19929 NOTES: CONTINUE HOME EXCERSISE. PREVENTIVE MEDICINE PAIN CLINIC TEACHING: THE PATIENT HAS BEEN EDUCATED REGARDING PAIN, THE RISK FOR PAIN, THE IMPORTANCE OF EFFECTIVE PAIN MANAGEMENT, AND THE PAIN ASSESSMENT PROCESS. : DISCUSSED PLAN OF CARE WITH PATIENT, PATIENT VERBALIZES UNDERSTANDING. PROCEDURE CODES FA211 ESTABILISHED PATIENT [facility] CHARGE DISPOSITION & COMMUNICATION FOLLOW UP 3 MOS (REASON: NECK PAIN/THORACIC BACK PAIN/MYALGIA) ELECTRONICALLY SIGNED BY GAY CEDEÑO ON 01/08/2020 AT 04:05 PM EDT DISCLAIMER : THIS IS A VISIT SUMMARY EXTRACTED FROM THE [employer] CHART. IT IS NOT A COPY OF THE [employer] PROGRESS NOTE. MARYLOU
== END ==
LOC: M PAIN 11:00
PROVIDERS: ATTEND Nurse Practitioner Family
DX: M54.6 Pain in thoracic spine (principal); M79.18 Myalgia, other site; M54.2 Cervicalgia; E11.9 Type 2 diabetes mellitus without complications; J45.909 Unspecified asthma, uncomplicated; G47.33 Obstructive sleep apnea (adult) (pediatric); Z86.59 Personal history of other mental and behavioral disorders; Z86.73 Personal history of transient ischemic attack (TIA), and cerebral infarction without residual deficits; Z95.0 Presence of cardiac pacemaker; Z87.891 Personal history of nicotine dependence; Z88.8 Allergy status to other drugs, medicaments and biological substances; E66.01 Morbid (severe) obesity due to excess calories; Z68.41 Body mass index [BMI] 40.0-44.9, adult; Z79.01 Long term (current) use of anticoagulants; Z79.4 Long term (current) use of insulin; Z79.82 Long term (current) use of aspirin; Z79.891 Long term (current) use of opiate analgesic; Z79.899 Other long term (current) drug therapy

== ENCOUNTER → 2020-01-10 | Outpatient (REF) | payer OTHER, MEDICAID ==
[2020-01-10 17:28] LABS: BASO % 0.4 % (0.0-1.0); EOS # 0.3 10^3/uL (0.0-0.5); EOS % 2.5 % (0.0-3.0); HEMATOCRIT 39.5 % (36.0-47.0); HEMOGLOBIN 12.2 g/dl (12.0-15.5); LYMPH # 1.7 10^3/uL (1.5-5.0); LYMPH % 16.5 % (24.0-44.0); MEAN CORPUSCULAR HEMOGLOBIN 26.6 pg (27.0-33.0); MEAN CORPUSCULAR HGB CONC 30.9 g/dl (32.0-36.5); MEAN CORPUSCULAR VOLUME 86.2 fl (80.0-96.0); MONO # 0.5 10^3/uL (0.0-0.8); MONO % 4.8 % (0.0-5.0); NEUTROPHILS # 7.8 10^3/uL (1.5-8.5); NEUTROPHILS % 74.7 % (36.0-66.0); PLATELET COUNT, AUTOMATED 255 10^3/uL (150-450); RED BLOOD COUNT 4.58 10^6/uL (4.00-5.40); WHITE BLOOD COUNT 10.4 10^3/uL (4.0-10.0)
[2020-01-10 17:45] LABS: APPEARANCE, URINE CLEAR (CLEAR); BACTERIA, URINE AUTO NEGATIVE (NEGATIVE); BILIRUBIN, URINE AUTO NEGATIVE (NEGATIVE); BLOOD, URINE BLOOD NEGATIVE (NEGATIVE); COLOR, URINE STRAW (YELLOW); GLUCOSE, URINE (UA) AUTO 3+ mg/dL (NEGATIVE); KETONE, URINE AUTO NEGATIVE (NEGATIVE); LEUKOCYTE ESTERASE, URINE AUTO NEGATIVE (NEGATIVE); NITRITE, URINE AUTO NEGATIVE (NEGATIVE); PROTEIN, URINE AUTO NEGATIVE (NEGATIVE); RBC, URINE AUTO 0 /HPF (0-3); SPECIFIC GRAVITY URINE AUTO 1.012 (1.002-1.035); SQUAMOUS EPITHELIAL CELL UR AU 0 /HPF (0-6); UROBILINOGEN, URINE AUTO 0.2 mg/dL (0.0-2.0); WBC, URINE AUTO 1 /HPF (0-3)
[2020-01-10 17:49] LABS: ALBUMIN 3.1 GM/DL (3.2-5.2); BILIRUBIN,TOTAL 0.2 MG/DL (0.2-1.0); CALCIUM LEVEL 9.2 MG/DL (8.5-10.1); CREATININE FOR GFR 1.29 MG/DL (0.55-1.30); GLOMERULAR FILTRATION RATE 45.7 (>51); POTASSIUM SERUM 4.4 MEQ/L (3.5-5.1); TOTAL PROTEIN 6.9 GM/DL (6.4-8.2)
== END ==
LOC: M SFHCADAM 13:03
PROVIDERS: ATTEND Physician Assistant
DX: M18.30 Unilateral post-traumatic osteoarthritis of first carpometacarpal joint, unspecified hand (principal); E78.2 Mixed hyperlipidemia; R10.30 Lower abdominal pain, unspecified

== ENCOUNTER → 2020-01-20 | Outpatient (CLI) | payer OTHER, MEDICAID ==
--- NOTE | 2020-01-20 15:35 | REPMRS ---
Patient History The patient states she has not had a clinical breast exam in over a year. Patient is postmenopausal and had previous chest radiation therapy. Family history of ovarian cancer in paternal cousin. No Hormone Replacement Therapy 3D TOMOSYNTHESIS WAS PERFORMED. [facility] lifetime risk for breast cancer is 10.4%. Volpara breast density b. Digital Woman Screen Mammo: January 20, 2020 - Exam #: [id number] Bilateral CC and MLO view(s) were taken. Technologist: Hayley Matt, Technologist Prior study comparison: July 04, 2018, bilateral digital woman screen mammo performed at [facility]. July 03, 2017, digital woman screen mammo performed at [facility]. FINDINGS: There are scattered fibroglandular densities. There has been no change in the appearance of the mammogram from the prior studies. There is a mild amount of residual fibroglandular tissue which is fairly symmetric. There is no interval development of dominant mass, architectural distortion, or clustered microcalcification suggestive of malignancy. Assessment: BI-RADS/ACR category 1 mammogram. Negative Mammogram. Recommendation Routine screening mammogram in 1 year (for women over age 40). This mammogram was interpreted with the aid of an FDA-approved computer-aided dectection system. Electronically Signed By: Michael Farrell MD 01/20/20 0127
== END ==
LOC: M WHC 13:18
PROVIDERS: ATTEND Physician Assistant
DX: Z12.31 Encounter for screening mammogram for malignant neoplasm of breast (principal); Z80.3 Family history of malignant neoplasm of breast

== ENCOUNTER 2020-01-22 10:40 | Outpatient (RCR) | payer OTHER, MEDICAID | END 2020-01-25 | LOC: M PT 10:40 | PROVIDERS: ATTEND Orthopaedic Surgery | DX: Z47.89 Encounter for other orthopedic aftercare (principal); M25.562 Pain in left knee; M25.561 Pain in right knee ==

== ENCOUNTER 2020-01-31 11:55 | Outpatient (RCR) | payer OTHER, MEDICAID | END 2020-02-24 | LOC: M PT 11:55 | PROVIDERS: ATTEND Orthopaedic Surgery | DX: M25.561 Pain in right knee (principal); M25.562 Pain in left knee ==

== ENCOUNTER → 2020-02-03 | Outpatient (CLI) | payer OTHER, MEDICAID ==
[~2020-02-03] MED LIST changes: +GASTROGRAFIN SOLUTION 30ML (Q9963) As Ordered ONE; +ISOVUE-370 76% 100ML VIAL As Ordered ONE
--- NOTE | 2020-02-04 08:20 | REP ---
INDICATION: LOWER ABD PAIN. COMPARISON: 03/15/2019 TECHNIQUE: Axial contrast-enhanced images from the lung bases to the pubic symphysis using 100 cc Isovue 370 intravenous contrast material. Precontrast images of the abdomen were obtained along with coronal and sagittal reformations.. This CT examination was performed using the following dose reduction techniques: Automated exposure control, adjustment of mA and/or kv according to the patient's size, and the use of iterative reconstruction technique. FINDINGS: Liver, spleen, pancreas, bilateral adrenal glands and kidneys are normal. Evidence for prior cholecystectomy noted. The enteric system including stomach, small, and large bowel appears normal. No evidence for obstruction or acute inflammatory process. Normal terminal ileum and appendix are identified in the right lower quadrant. Few scattered colonic diverticula noted without acute diverticulitis. Pelvis demonstrates normal bladder and age-appropriate uterus/adnexa. No ascites. No free air. No intraperitoneal or retroperitoneal adenopathy. Abdominal aorta and vasculature appear normal. Musculoskeletal structures are intact and without acute osseous abnormality. Lung bases suggests small amount of dependent atelectasis in the right posterior sulcus. IMPRESSION: No acute abdominopelvic pathology appreciated. <Electronically signed by Shukri Burris > 02/04/20 [id number]
== END ==
LOC: M RAD 07:44
PROVIDERS: ATTEND Physician Assistant
DX: R10.30 Lower abdominal pain, unspecified (principal)
CPT/HCPCS: 74178; Q9963; Q9967

== ENCOUNTER → 2020-02-04 | Outpatient (REF) | payer OTHER, MEDICAID ==
[~2020-02-04] MED LIST changes: -GASTROGRAFIN SOLUTION 30ML (Q9963) As Ordered ONE; -ISOVUE-370 76% 100ML VIAL As Ordered ONE
[2020-02-04 13:28] LABS: CHOLESTEROL RISK RATIO 3.638 (<5)
== END ==
LOC: M LABDRWAD 12:05
PROVIDERS: ATTEND Nurse Practitioner Family
DX: E78.49 Other hyperlipidemia (principal)
CPT/HCPCS: 36415; 80061; G0463

== ENCOUNTER → 2020-02-05 | Outpatient (REF) | payer OTHER, MEDICAID | LOC: M SFHCADAM 14:47 | PROVIDERS: ATTEND Physician Assistant | DX: R19.7 Diarrhea, unspecified (principal); F25.1 Schizoaffective disorder, depressive type; F43.10 Post-traumatic stress disorder, unspecified ==

== ENCOUNTER 2020-03-16 12:47 | Emergency (ER) | payer OTHER, MEDICAID ==
[~2020-03-16] VITALS: Ht 152.4 cm; Wt 113.6 kg
--- NOTE | 2020-03-16 14:15 | REP ---
INDICATION: DYSPNEA/COUGH COMPARISON: 08/31/2019 TECHNIQUE: Portable AP view of the chest FINDINGS: Examination is limited by overlying opacity obscuring the left mid to lower lung zone. Remainder of the bilateral lung canas are clear. Visualized portions of the mediastinum and cardiac silhouette are stable. Skeletal structures are intact. IMPRESSION: Limited examination due to opacity obscuring the left mid to lower lung zone. No acute cardiopulmonary process appreciated. <Electronically signed by Shukri Burrsi > 03/16/20 0611
[2020-03-16 14:21] LABS: BASO # 0.1 10^3/uL (0.0-0.2); BASO % 0.6 % (0.0-1.0); EOS # 0.4 10^3/uL (0.0-0.5); HEMATOCRIT 37.2 % (36.0-47.0); HEMOGLOBIN 11.5 g/dl (12.0-15.5); LYMPH # 1.9 10^3/uL (1.5-5.0); LYMPH % 20.5 % (24.0-44.0); MEAN CORPUSCULAR HEMOGLOBIN 26.6 pg (27.0-33.0); MEAN CORPUSCULAR HGB CONC 30.9 g/dl (32.0-36.5); MEAN CORPUSCULAR VOLUME 85.9 fl (80.0-96.0); MONO # 0.6 10^3/uL (0.0-0.8); MONO % 5.9 % (0.0-5.0); NEUTROPHILS # 6.4 10^3/uL (1.5-8.5); NEUTROPHILS % 67.9 % (36.0-66.0); PLATELET COUNT, AUTOMATED 268 10^3/uL (150-450); RED BLOOD COUNT 4.33 10^6/uL (4.00-5.40); WHITE BLOOD COUNT 9.4 10^3/uL (4.0-10.0)
[2020-03-16 14:34] LABS: INR 0.9; PROTHROMBIN TIME 12.3 SECONDS (12.5-14.3)
[2020-03-16 15:01] LABS: ALBUMIN 3.4 GM/DL (3.2-5.2); ALT/SGPT 27 U/L (12-78); BILIRUBIN,DIRECT < 0.1 MG/DL (0.0-0.2); BILIRUBIN,TOTAL 0.3 MG/DL (0.2-1.0); BLOOD UREA NITROGEN 18 MG/DL (7-18); CALCIUM LEVEL 9.2 MG/DL (8.5-10.1); CARBON DIOXIDE LEVEL 30 MEQ/L (21-32); CHLORIDE LEVEL 105 MEQ/L (98-107); CK-MB VALUE MASS 1.9 NG/ML (<3.6); CPK CREATINE PHOSPHOKINASE 52 U/L (26-192); CREATININE FOR GFR 1.13 MG/DL (0.55-1.30); GLOMERULAR FILTRATION RATE 53.2 (>51); GLUCOSE, FASTING 107 MG/DL (70-100); MB/CK RELATIVE INDEX 3.65 (< OR =4); NT-PRO BNP 261 PG/ML (<125); POTASSIUM SERUM 4.1 MEQ/L (3.5-5.1); SODIUM LEVEL 140 MEQ/L (136-145); TOTAL PROTEIN 7.3 GM/DL (6.4-8.2); TROPONIN I < 0.02 NG/ML (< 0.10)
[2020-03-16] MEDS ORDERED: ACETAMINOPHEN TAB 650MG DOSE (2X325MG) PO ONE (16:00)
[2020-03-16] MEDS ORDERED: ISOVUE-370 76% 100ML VIAL As Ordered ONE (16:15)
--- NOTE | 2020-03-16 17:01 | REP ---
INDICATION: lightness and dizzness to R/o TIA/Stroke COMPARISON: 02/08/2019 TECHNIQUE: Axial noncontrast images from the skull base to the vertex with coronal reformations. This CT examination was performed using the following dose reduction techniques: Automated exposure control, adjustment of mA and/or kv according to the patient's size, and use of iterative reconstruction technique. FINDINGS: The ventricles, sulci, and cisterns are normal in position and appearance. Farrell-white differentiation is maintained. No acute intracranial hemorrhage, mass/mass effect, pathology or trauma/injury. No evidence for acute infarction. No extra-axial fluid collection. Calvarium is intact. Paranasal sinuses and mastoid air cells are clear. IMPRESSION: Normal noncontrast head CT. No evidence for acute intracranial pathology or trauma/injury. <Electronically signed by Shukri Burris > 03/16/20 1659
--- NOTE | 2020-03-16 17:05 | REP ---
INDICATION: Limited CXR and SOB COMPARISON: None. TECHNIQUE: Axial contrast enhanced images from the thoracic inlet to the upper abdomen using pulmonary embolus technique with multiplanar re-formations. 75 ml Isovue 370 intravenous contrast material administered without complication. This CT examination was performed using the following dose reduction techniques: Automated exposure control, adjustment of mA and/or kv according to the patient's size, and use of iterative reconstruction technique. FINDINGS: Satisfactory enhancement of the pulmonary vasculature is achieved and no filling defects are identified to suggest pulmonary embolus. Further evaluation of the mediastinum demonstrates normal thoracic aorta. Mild cardiomegaly with pacemaker in satisfactory position noted. No pericardial effusion. The lung canas demonstrate scattered nonspecific ground-glass opacities and minimal basilar atelectasis. No focal consolidation or effusion. No pneumothorax. Tracheobronchial tree is patent. Moderate mediastinal and hilar adenopathy noted and possibly reactive. Musculoskeletal structures demonstrate age-related degenerative changes without acute osseous abnormality. IMPRESSION: 1. No evidence for pulmonary embolus. 2. Subtle scattered ground-glass opacities along with minimal basilar atelectasis and mild/moderate adenopathy are nonspecific findings. No significant consolidation/pneumonia, effusion or pneumothorax. <Electronically signed by Shukri Burris > 03/16/20 9179
[2020-03-16 18:15] VITALS: O2SAT 96
[2020-03-16 19:36] VITALS: BP 167/80
--- NOTE | 2020-03-17 00:34 | ECGEPIP ---
[facility] - ED Test Date: 2020-03-16 Pat Name: PRUDENCIO SHAHID Department: Room: - Gender: Female Organizational Psychologist: yaron : 1965 Requested By: SHIRA Polanco Order Number: [id number] Reading MD: Vitaly Reyes Measurements Intervals [place] Rate: 66 P: 72 MD: 193 QRS: 106 QRSD: 143 T: -68 QT: 457 QTc: 480 Interpretive Statements ELECTRONIC VENTRICULAR PACEMAKER SIMILAR TO 08/31/19 Electronically Signed on 03-17-2020 0:34:21 EST by Vitaly Reyes
== END 2020-03-16 19:39 | disposition home or self-care (01) ==
LOC: M ED 12:47
DX: R55 Syncope and collapse (principal); Z95.0 Presence of cardiac pacemaker; E11.9 Type 2 diabetes mellitus without complications; I10 Essential (primary) hypertension; N18.30 Chronic kidney disease, stage 3 unspecified; R06.02 Shortness of breath; G43.909 Migraine, unspecified, not intractable, without status migrainosus; J45.909 Unspecified asthma, uncomplicated; Z86.73 Personal history of transient ischemic attack (TIA), and cerebral infarction without residual deficits; Z87.891 Personal history of nicotine dependence; Z79.82 Long term (current) use of aspirin; Z79.4 Long term (current) use of insulin; Z79.899 Other long term (current) drug therapy; Z88.8 Allergy status to other drugs, medicaments and biological substances
CPT/HCPCS: 70450; 71045; 71275; 80048; 80076; 82550; 82553; 83880; 84484; 85025; 85610; 93005; 93041; 94760; 99285; Q9967; U0003

== ENCOUNTER → 2020-04-03 | Outpatient (CLI) | payer OTHER, MEDICAID ==
--- NOTE | 2020-04-07 07:42 | ECWPNPC ---
PATIENT NAME: PRUDENCIO SHAHID : 1965 GENDER: FEMALE VISIT DATE: 04/03/2020 DISCHARGE DATE: 04/03/20 1532 VISIT LOCKED DATE TIME: PHYSICIAN: YULISSA STAUFFER PHYSICIAN PAGER NO: ACTIVE RESOURCE: YULISSA STAUFFER REASON FOR APPOINTMENT 1. NECK PAIN/THORACIC BACK PAIN/MYALGIA HISTORY OF PRESENT ILLNESS GENERAL: HERE FOR FOLLOW-UP OF PERSISTENT THORACIC AND LOW BACK PAIN. THORACIC REGION IS DOING WELL AND SHE CONTINUES TO BENEFIT FROM TRIGGER POINTS DONE IN THAT REGION IN DECEMBER. CHIEF AREA OF PAIN IS LOWER BACK. PAIN IS AGGRAVATED WITH PALPATION OVER THE SACROILIAC NERVE ROOT BILATERALLY. HAS RESPONDED WELL TO SACROILIAC JOINT BLOCKS IN THE PAST. -. FALL RISK SCREENING: SCREENING :NO FALLS REPORTED IN THE LAST YEAR PAIN SCREENING: PATIENT HAS A COMPLAINT OF ACUTE OR CHRONIC PAIN :YES LOCATION OF PAIN:LOW BACK INTENSITY OF PAIN (SCALE OF 1 TO 10):8 WHAT DOES YOUR PAIN FEEL LIKE:ACHING, SHARP, THROBBING DURATION:PERIODIC PAIN IS INCREASED BY:OTHERS WALKING AROUND PAIN IS DECREASED BY:SITTING, OTHERS LAYING DOWN TREATMENT/MEDICATIONS USED TO MANAGE PAIN:OPIOIDS LEVEL OF RELIEF FROM PAIN TREATMENTS IN THE PAST:25% PAIN HAS INTERFERED WITH THE FOLLOWING:BATHING/DRESSING, WALKING ABILITY, SLEEP NURSING NOTE: -. PAIN CENTER INTAKE QUESTIONS: DO YOU HAVE A HISTORY OF MRSA? :NO DO YOU TAKE A BLOOD THINNERS? :YES DO YOU HAVE ANY BLEEDING DISORDERS? :NO ANY NEW NUMBNESS OR WEAKNESS IN YOUR LEGS OR ARMS? :NO ANY PACEMAKER,DEFIBRILLATOR, OR DORSAL COLUMN STIMULATOR? :YES DO YOU HAVE ANY RASHES OR OPEN SORES? :NO ARE YOU ALLERGIC TO IV DYE? :NO ARE YOU DIABETIC? :YES ANY NEW PROBLEMS WITH YOUR MEDICATIONS? :NO HAVE YOU RECEIVED A VACCINE IN THE PAST 30 DAYS? :NO DO YOU PLAN TO RECEIVE A VACCINE IN THE NEXT 21 DAYS? :NO DO YOU NEED ANY PRESCRIPTION? :NO DO YOU TAKE ANY IMMUNOSUPPRESSIVE MEDICATIONS? :NO IS THERE A CHANCE YOU COULD BE ? :NO ARE YOU BREAST FEEDING? :NO CURRENT MEDICATIONS TAKING HUMALOG 100 UNIT/ML SOLUTION SLIDING SCALE, IF BLOOD SUGAR IS 150 PT TAKES 14 UNITS, IF IT IS HIGHER THAN THAT 14 UNITS SUBCUTANEOUS SLIDING SCALE, MDD 24 UNITS TAKING DRISDOL 31381 UNIT CAPSULE 1 CAPSULE ORALLY WEEKLY TAKING MAGNESIUM OXIDE 400 MG TABLET 1 TABLET ORALLY ONCE A DAY TAKING ZONISAMIDE 25 MG CAPSULE 1 CAPSULES ORALLY BEFORE BEDTIME TAKING ASPIR-81 81 MG TABLET DELAYED RELEASE 1 TABLET ORALLY ONCE A DAY TAKING CALCIUM 600 + D 600-400 MG-UNIT TABLET 1 TABLET ORALLY ONCE A DAY TAKING MAY HAVE - - DIRECTED PATIENT WOULD BENEFIT FROM A ED TRANSPORTER ANIMAL DUE TO PSHCYOLOGICAL AND CARDIAC ISSUES TAKING EFFEXOR XR 75 MG CAPSULE EXTENDED RELEASE 24 HOUR 1 CAPSULE WITH FOOD ORALLY ONCE A DAY TAKING PLAVIX 75 MG TABLET 1 TABLET ORALLY ONCE A DAY TAKING ABILIFY MAINTENA 400 MG PREFILLED SYRINGE INTRAMUSCULAR MONTHLY TAKING ZOFRAN 4 MG TABLET 1 TABLETS ORALLY TWICE A DAY NEEDED FOR NAUSEA/VOMITING TAKING COLACE 100 MG CAPSULE 1 CAPSULE NEEDED ORALLY ONCE A DAY TAKING LEVEMIR FLEXPEN 100 UNIT/ML SOLUTION 25 UNITS SUBCUTANEOUS TWICE A DAY TAKING VICTOZA 18 MG/3ML SOLUTION PEN-INJECTOR 1.8 ML SUBCUTANEOUS ONCE A DAY TAKING HYDROCHLOROTHIAZIDE 25 MG TABLET 1 TABLET IN THE MORNING ORALLY ONCE A DAY TAKING ALBUTEROL SULFATE (2.5 MG/3ML) 0.083% NEBULIZATION SOLUTION 3 ML INHALATION QID PRN TAKING PROAIR HFA 108 (90 BASE) MCG/ACT AEROSOL SOLUTION 2 PUFFS NEEDED INHALATION EVERY 6 HRS NEEDED TAKING ALIGN - CAPSULE DIRECTED ORALLY DAILY TAKING CETIRIZINE HCL 10MG TABLET TAKE ONE TABLET BY MOUTH ONCE DAILY NEEDED TAKING METHENAMINE HIPPURATE 1 GM TABLET TAKE 1 TABLET TWICE DAILY TAKING LIDOCAINE-PRILOCAINE 2.5-2.5 % CREAM DIRECTED TO LOW BACK EXTERNALLY TID PRN TAKING ATORVASTATIN CALCIUM 40 MG TABLET 1 TABLET ORALLY ONCE A DAY TAKING ACTOS 45MG TABLET TAKE 1 TABLET EVERY DAY TAKING TYLENOL WITH CODEINE #3 300-30 MG TABLET 1 ORALLY Q8H PRN MDD3 TAKING GABAPENTIN 100 MG CAPSULE 2 CAPSULES ORALLY BID TAKING ACETAMINOPHEN-CODEINE 300-30 MG TABLET 1 TABLET NEEDED ORALLY EVERY 8 HRS MDD 3 TAKING AMLODIPINE BESYLATE 2.5 MG TABLET TAKE 1 TABLET EVERY DAY TAKING LASIX 80 MG TABLET 1 TABLET ORALLY ONCE A DAY NOT-TAKING LISINOPRIL 20 MG TABLET 1/2 TABLET ORALLY ONCE A DAY NOT-TAKING ACETAMINOPHEN-CODEINE 300-30 MG TABLET 1 TABLET NEEDED ORALLY EVERY 6 HRS PRN PAIN #45 TAB SHOULD LAST 30 DAYS MEDICATION LIST REVIEWED AND RECONCILED WITH THE PATIENT PAST MEDICAL HISTORY HYPERLIPIDEMIA DIABETES MELLITUS - WITH NON-PROLIFERATIVE RETINOPATHY LEFT EYE PER CENTER FOR SIGHT 06/2013. 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 DIFFUSE DISC BULGES AT THE L1-2 AND L3-4 LEVELS WITH MINIMAL THECAL SAC. 2. MINIMAL CENTRAL CANAL STENOSIS AT THE L4-5 LEVEL SECONDARY TO DISC BULGE, - CHRONIC PAIN MANAGEMENT THROUGH [facility]) CKD STAGE 3 C. DIFF 10/2017 & 11/2017 & 02/2018 - S/P STOOL TRANSPLANT; STOOL TRANSPLANT 06/12 RECURRENT UTIS S/P PACER 01/2019 MRI BRAIN 01/2019 - TINY LACUNAR INFARCT - OLD ADAN - STARTING CPAP 08/2019 ALLERGIES SEASONAL: NASAL CONGESTION - ALLERGY PEPTO BISMOL: THROAT SWELLS - ALLERGY METFORMIN HCL: CKD - METFORMIN STOPPED BY NEPHRO. 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 1 SON(S) , 2 DAUGHTER(S) - HEALTHY. ONE BROTHER FROM CARDIAC COMPLICATION\\\\\\\\NDAUGHTERS HAVE DEPRESSION. SOCIAL HISTORY GENERAL: TOBACCO USE ARE YOU A:FORMER SMOKER HOW LONG HAS IT BEEN SINCE YOU LAST SMOKED?> 10 YEARS SMOKING CESSATION INFORMATION GIVEN04/03/2020 LATEX QUESTIONNAIRE LATEX ALLERGY : HAVE YOU EVER DEVELOPED ANY TYPE OF REACTION AFTER HANDLING LATEX PRODUCTS SUCH RUBBER GLOVES, CONDOMS, DIAPHRAGMS, BALLOONS, SOCKS, OR UNDERWEAR?NO LATEX ALLERGY : HAVE YOU EVER DEVELOPED ANY TYPE OF REACTION DURING OR AFTER DENTAL APPOINTMENT, VAGINAL/RECTAL EXAMINATION, SURGICAL PROCEDURE, OR ANY OTHER EXPOSURE?NO LATEX RISK : HAVE YOU EVER HAD ANY DIFFICULTY BREATHING OR HIVES AFTER EATING OR HANDLING ANY FRUITS, OR VEGETABLES; SUCH KIWI, BANANAS, STONE FRUITS, OR CHESTNUTSNO LATEX RISK : DO YOU HAVE A PREVIOUS PERSONAL HISTORY OF MORE THAN NINE SURGERIES, SPINA BIFIDA, OR REPEATED CATHERIZATIONS? NO LATEX RISK : ARE YOU FREQUENTLY EXPOSED TO LATEX PRODUCTS IN YOUR OCCUPATION?NO DATE ASKED : 04/03/2020 LUNG CANCER SCREENING SMOKING STATUS:FORMER SMOKER BMI CARE GOAL FOLLOW-UP ABOVE NORMAL BMI FOLLOW-UPDIETARY MANAGEMENT EDUCATION, GUIDANCE, AND COUNSELING ALCOHOL SCREENING DID YOU HAVE A DRINK CONTAINING ALCOHOL IN THE PAST YEAR?NO POINTS0 INTERPRETATIONNEGATIVE RECREATIONAL DRUG USE DRUG USE?NO CAFFEINE CAFFEINE USE?YES 1CUP COFFEE SEXUAL HX HAD SEX IN THE LAST 12 MONTHS (VAGINAL, ORAL, OR ANAL)?NO LMP:02/2016 HAVE YOU EVER HAD AN STD?NO HIV / HEP-C SCREENING HIV TEST OFFERED TO PATIENT:YES DATE OFFERED:06/30/2016 TEST ACCEPTED:NO REASON:PATIENT DECLINED BROCHURE PROVIDED TO PATIENTNO BAHAI [id number] YAZIDI LANGUAGE LANGUAGES SPOKEN:MALDIVIAN LEARNING BARRIERS / SPECIAL NEEDS CHANGE FROM LAST VISIT?NO BARRIERS TO LEARNING?NO HEARING IMPAIRED?NO VISION IMPAIRED?YES :CORRECTIVE LENSES COGNITIVELY IMPAIRED?NO READINESS TO LEARN?YES LEARNING PREFERENCES?NO LEARNING CAPABILITIES PRESENT?YES EMOTIONAL BARRIERS?NO SPECIAL DEVICES?YES :WALKER ONLY WHEN NEEDED TRAFFIC REPORTER NEEDED?NO DOMESTIC VIOLENCE DO YOU FEEL SAFE IN YOUR ENVIRONMENT?YES DIET: NO CONCENTRATED SWEETS., CARBOHYDRATE CONTROLLED, LOW FAT, LOW CHOLESTEROL. EXERCISE: WALKS 1 MILE WEATHER PERMITTING. MARITAL STATUS: .. OTHERS AT HOME: CHILD DAUGHTER. PAIN CLINIC PFS, CLERGY, PUBLIC HEALTH REFERRALS PFS REFERRAL NEEDED?NO CLERGY REFERRAL NEEDED?NO PUBLIC HEALTH REFERRAL NEEDED?NO WAS THE PROVIDER NOTIFIED OF ANY PERTINENT INFO?YES N/A HAS THE PATIENT BEEN EDUCATED REGARDING HIS/HER PLAN OF CARE?YES HAS THE PATIENT BEEN EDUCATED REGARDING PAIN, THE RISK FOR PAIN, THE IMPORTANCE OF EFFECTIVE PAIN MANAGEMENT, AND THE PAIN ASSESSMENT PROCESS?YES ADVANCE DIRECTIVE ADVANCE DIRECTIVE DISCUSSED WITH PATIENT:YES PT HAS HCP [facility] ROBERTS [phone] HOSPITALIZATION/MAJOR DIAGNOSTIC PROCEDURE 3 DAYS FOR TIA 06/2013 SURGERIES PACER ACTING UP, OBSERVED REVIEW OF SYSTEMS CONSTITUTIONAL: ANY RECENT FEVER NO . CHILLS NO . WEIGHT CHANGE OF UNKNOWN REASONS NO . GASTROENTEROLOGY: NEW UNEXPLAINABLE CHANGES IN BOWEL CONTROL NO . CONSTIPATION NO . GENITOURINARY: ANY NEW CHANGE IN BLADDER CONTROL? NO . NEUROLOGY: NEW ONSET DIZZINESS OR NEUROLOGICAL CHANGES NOT MENTIONED NO . NEW NUMBNESS OR PAIN PATTERNS NOT MENTIONED AND PERTINENT TO TODAY'S VISIT NO . CARDIOLOGY: NEW CHEST PRESSURE NO . NEW CHEST PAIN NO . RESPIRATORY: UNEXPLAINABLE COUGH NO . NEW SHORTNESS OF BREATH NO . VITAL SIGNS WT 255.5 LBS, HT 64.25 IN, BMI 43.51 INDEX, BP 152/57 MM HG, REPEAT BP 130/80 MANUAL, HR 104 /MIN, RR 18 /MIN, TEMP 96.4 F, OXYGEN SAT % 95%, SAFE IN ENV? (Y/N) YES, NA INITIALS AW 1432, REVIEWED BY: LUPE MUNROE. EXAMINATION GENERAL EXAMINATION: GENERAL ALERT,NO DISTRESS . PSYCH AFFECT NORMAL . LUNGS: LUNG SOUNDS ARE CLEAR . HEART: HEART RATE REGULAR . MUSCULOSKELETAL: MST 5/5 BILAT. LOWER EXTREMITIES . LUMBAR: TENDERNESS BILAT. SIJ , RIGHT GREATER THAN LEFT. POSITIVE MALINI'S TESTING BILATERAL LOWER EXTREMITIES.. ASSESSMENTS SACROILIITIS - M46.1 (PRIMARY) CHRONIC PRESCRIPTION OPIATE USE - Z79.891 TREATMENT SACROILIITIS CONTINUE TYLENOL WITH CODEINE #3 TABLET, 300-30 MG, 1, ORALLY, Q8H PRN MDD3 CONTINUE GABAPENTIN CAPSULE, 100 MG, 2 CAPSULES, ORALLY, BID NOTES: ISTOP REGISTRY REVIEWED AND DEMONSTRATES COMPLLIANCE. RECENT URINE TOXICOLOGY REVIEWED. NO UNAUTHORIZED MEDICATIONS. NO ILLICIT SUBSTANCES AND PRESCRIBED MEDICATIONS WERE PRESENT. URINE TOX TODAY BILATERAL SACROILIAC JOINT BLOCK BRING MEDICATION INTO ALL CLINIC VISITS RISKS OF NARCOTIC/OPIOD MEDICATIONS INCLUDES BUT IS NOT LIMITED TO RISK OF DEPENDANCE/DEVELOPMENT OF ADDICTION, MOOD DISTURBANCE AND DEPRESSION, OSTEOPOROSIS, HORMONAL AND LABIDAL CHANGES, RESPIRATORY DEPRESSION AND . PATIENT IS ADVISED NOT TO DRIVE OR DRINK ALCOHOL WHILE ON THESE MEDICATIONS, . PROCEDURE CODES FA211 ESTABILISHED [facility] DISPOSITION & COMMUNICATION FOLLOW UP POST PROCEDURE (REASON: BILATERAL SACROILIAC JOINT BLOCK/REVIEW URINE TOXICOLOGY/PILL COUNT IDENTIFICATION) ELECTRONICALLY SIGNED BY GAY CEDEÑO ON 04/06/2020 AT 11:19 AM EST DISCLAIMER : THIS IS A VISIT SUMMARY EXTRACTED FROM THE [facility] CHART. IT IS NOT A COPY OF THE [facility] PROGRESS NOTE. MTDD
== END ==
LOC: M PAIN 14:00
PROVIDERS: ATTEND Nurse Practitioner Family
DX: M46.1 Sacroiliitis, not elsewhere classified (principal); E78.5 Hyperlipidemia, unspecified; E11.3292 Type 2 diabetes mellitus with mild nonproliferative diabetic retinopathy without macular edema, left eye; Z86.73 Personal history of transient ischemic attack (TIA), and cerebral infarction without residual deficits; A60.09 Herpesviral infection of other urogenital tract; F31.9 Bipolar disorder, unspecified; N18.30 Chronic kidney disease, stage 3 unspecified; E11.22 Type 2 diabetes mellitus with diabetic chronic kidney disease; G47.33 Obstructive sleep apnea (adult) (pediatric); Z87.891 Personal history of nicotine dependence; Z79.4 Long term (current) use of insulin; Z79.891 Long term (current) use of opiate analgesic; Z79.82 Long term (current) use of aspirin; Z79.899 Other long term (current) drug therapy; Z88.8 Allergy status to other drugs, medicaments and biological substances

== ENCOUNTER → 2020-04-23 | Outpatient (CLI) | payer OTHER, MEDICAID | LOC: M LABSMTC 12:46 | PROVIDERS: ATTEND Anesthesiology | DX: Z20.822 Contact with and (suspected) exposure to COVID-19 (principal) ==

== ENCOUNTER → 2020-04-28 | Outpatient (CLI) | payer OTHER, MEDICAID ==
[~2020-04-28] MED LIST changes: +BUPIVACAINE HCL 0.25% 30ML VIAL As Ordered ONE; +ISOVUE-M 300 61% 15ML VIAL As Ordered ONE; +LIDOCAINE 1% SDV 30ML VIAL As Ordered ONE; +TRIAMCINOLONE ACETONIDE SUSP 40 MG/ML VIAL (J3301) As Ordered ONE; +diazePAM 5MG TABLET As Ordered ONE; +oxyCODONE 5MG TAB As Ordered ONE
--- NOTE | 2020-04-28 16:44 | REP ---
INDICATION: BILATERAL SACROILIAC JOINT BLOCK. COMPARISON: None. TECHNIQUE: Four views. 37 seconds of fluoroscopy time is reported. FINDINGS: A sequence of 4 last image hold fluoroscopically obtained spot radiographs of the SI joints document needle position and contrast injection associated with injection procedure. IMPRESSION: Procedural imaging. <Electronically signed by Rico Shane > 04/28/20 1640
--- NOTE | 2020-04-30 01:29 | ECWPNPC ---
PATIENT NAME: PRUDENCIO SHAHID : 1965 GENDER: FEMALE VISIT DATE: 04/28/2020 DISCHARGE DATE: 04/28/20 151 VISIT LOCKED DATE TIME: PHYSICIAN: PANDA SO MD PHYSICIAN PAGER NO: ACTIVE RESOURCE: PANDA SO MD REASON FOR APPOINTMENT 1. BILATERAL SACROILIAC JOINT BLOCK HISTORY OF PRESENT ILLNESS GENERAL: -. FALL RISK SCREENING: SCREENING :NO FALLS REPORTED IN THE LAST YEAR PAIN SCREENING: PATIENT HAS A COMPLAINT OF ACUTE OR CHRONIC PAIN :YES LOCATION OF PAIN:LOW BACK, LEG(S) INTENSITY OF PAIN (SCALE OF 1 TO 10):9 WHAT DOES YOUR PAIN FEEL LIKE:ACHING, BURNING, SHOOTING DURATION:CONTINOUS, CONSTANT PAIN IS INCREASED BY:ACTIVITIES PAIN IS DECREASED BY:USE OF PAIN MEDICATIONS LAYING DOWN TREATMENT/MEDICATIONS USED TO MANAGE PAIN:OPIOIDS LEVEL OF RELIEF FROM PAIN TREATMENTS IN THE PAST:25% PAIN HAS INTERFERED WITH THE FOLLOWING:BATHING/DRESSING, WALKING ABILITY, HOUSEWORK, SLEEP, TRANSPORTATION, TOILETING NURSING NOTE: -. PAIN CENTER INTAKE QUESTIONS: DO YOU HAVE A HISTORY OF MRSA? :NO DO YOU TAKE A BLOOD THINNERS? :YES PLAVIX FOR STROKE, LAST DOSE 04/18/20 DO YOU HAVE ANY BLEEDING DISORDERS? :NO ANY NEW NUMBNESS OR WEAKNESS IN YOUR LEGS OR ARMS? :YES WEAKNESS IN LEGS ANY PACEMAKER,DEFIBRILLATOR, OR DORSAL COLUMN STIMULATOR? :YES PACEMAKER DO YOU HAVE ANY RASHES OR OPEN SORES? :NO ARE YOU ALLERGIC TO IV DYE? :NO ARE YOU DIABETIC? :YES FSBS 148 @0700 ANY NEW PROBLEMS WITH YOUR MEDICATIONS? :NO HAVE YOU RECEIVED A VACCINE IN THE PAST 30 DAYS? :NO DO YOU PLAN TO RECEIVE A VACCINE IN THE NEXT 21 DAYS? :NO DO YOU TAKE ANY IMMUNOSUPPRESSIVE MEDICATIONS? :NO ANY HISTORY OF SEIZURES? :NO ANY HISTORY OF CARDIAC ISSUES OR EVENTS? :YES HX OF STROKE DO YOU HAVE SLEEP APNEA? :YES DO YOU WEAR A CPAP? YES ANY RECENT HEAD INJURY? :NO DO YOU HAVE ANY NEW INFECTIONS? :NO IS THERE A CHANCE YOU COULD BE ? :NO ARE YOU BREAST FEEDING? :NO WHEN DID YOU LAST EAT? : 04/28 629 WHEN DID YOU LAST DRINK? : 04/28 1045 WHAT DID YOU LAST DRINK? : WATER NAME OF PERSON DRIVING YOU HOME? : [employer] [facility] DO YOU HAVE ANY OTHER QUESTIONS OR CONCERNS? : NONE CURRENT MEDICATIONS TAKING HUMALOG 100 UNIT/ML SOLUTION SLIDING SCALE, IF BLOOD SUGAR IS 150 PT TAKES 14 UNITS, IF IT IS HIGHER THAN THAT 14 UNITS SUBCUTANEOUS SLIDING SCALE, MDD 24 UNITS, NOTES: 04/27/20 14UNITS 1730 TAKING DRISDOL 81060 UNIT CAPSULE 1 CAPSULE ORALLY WEEKLY TAKING ZONISAMIDE 25 MG CAPSULE 1 CAPSULES ORALLY BEFORE BEDTIME TAKING ASPIR-81 81 MG TABLET DELAYED RELEASE 1 TABLET ORALLY ONCE A DAY TAKING CALCIUM 600 + D 600-400 MG-UNIT TABLET 1 TABLET ORALLY ONCE A DAY TAKING MAY HAVE - - DIRECTED PATIENT WOULD BENEFIT FROM A FEED MIXER ANIMAL DUE TO PSHCYOLOGICAL AND CARDIAC ISSUES TAKING EFFEXOR XR 75 MG CAPSULE EXTENDED RELEASE 24 HOUR 1 CAPSULE WITH FOOD ORALLY ONCE A DAY TAKING PLAVIX 75 MG TABLET 1 TABLET ORALLY ONCE A DAY, NOTES: 04/18/20 TAKING ABILIFY MAINTENA 400 MG PREFILLED SYRINGE INTRAMUSCULAR MONTHLY TAKING ZOFRAN 4 MG TABLET 1 TABLETS ORALLY TWICE A DAY NEEDED FOR NAUSEA/VOMITING TAKING LEVEMIR FLEXPEN 100 UNIT/ML SOLUTION 25 UNITS SUBCUTANEOUS TWICE A DAY, NOTES: 04/27/20 TAKING VICTOZA 18 MG/3ML SOLUTION PEN-INJECTOR 1.8 ML SUBCUTANEOUS ONCE A DAY, NOTES: 04/27/20 TAKING HYDROCHLOROTHIAZIDE 25 MG TABLET 1 TABLET IN THE MORNING ORALLY ONCE A DAY TAKING ALBUTEROL SULFATE (2.5 MG/3ML) 0.083% NEBULIZATION SOLUTION 3 ML INHALATION QID PRN, NOTES: NONE RECENT TAKING PROAIR HFA 108 (90 BASE) MCG/ACT AEROSOL SOLUTION 2 PUFFS NEEDED INHALATION EVERY 6 HRS NEEDED, NOTES: NONE RECENT TAKING ALIGN - CAPSULE DIRECTED ORALLY DAILY TAKING CETIRIZINE HCL 10MG TABLET TAKE ONE TABLET BY MOUTH ONCE DAILY NEEDED TAKING METHENAMINE HIPPURATE 1 GM TABLET TAKE 1 TABLET TWICE DAILY TAKING LIDOCAINE-PRILOCAINE 2.5-2.5 % CREAM DIRECTED TO LOW BACK EXTERNALLY TID PRN TAKING ATORVASTATIN CALCIUM 40 MG TABLET 1 TABLET ORALLY ONCE A DAY TAKING ACTOS 45MG TABLET TAKE 1 TABLET EVERY DAY , NOTES: 04/27/20 TAKING ACETAMINOPHEN-CODEINE 300-30 MG TABLET 1 TABLET NEEDED ORALLY EVERY 8 HRS MDD 3, NOTES: 04/26/20 TAKING AMLODIPINE BESYLATE 2.5 MG TABLET TAKE 1 TABLET EVERY DAY , NOTES: 04/28/20 0700 TAKING LASIX 80 MG TABLET 1 TABLET ORALLY ONCE A DAY TAKING GABAPENTIN 100 MG CAPSULE 2 CAPSULES ORALLY BID NOT-TAKING TYLENOL WITH CODEINE #3 300-30 MG TABLET 1 ORALLY Q8H PRN MDD3 NOT-TAKING MAGNESIUM OXIDE 400 MG TABLET 1 TABLET ORALLY ONCE A DAY NOT-TAKING COLACE 100 MG CAPSULE 1 CAPSULE NEEDED ORALLY ONCE A DAY NOT-TAKING LISINOPRIL 20 MG TABLET 1/2 TABLET ORALLY ONCE A DAY NOT-TAKING ACETAMINOPHEN-CODEINE 300-30 MG TABLET 1 TABLET NEEDED ORALLY EVERY 6 HRS PRN PAIN #45 TAB SHOULD LAST 30 DAYS MEDICATION LIST REVIEWED AND RECONCILED WITH THE PATIENT PAST MEDICAL HISTORY HYPERLIPIDEMIA DIABETES MELLITUS - WITH NON-PROLIFERATIVE RETINOPATHY LEFT EYE PER CENTER FOR SIGHT 06/2013. 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 DIFFUSE DISC BULGES AT THE L1-2 AND L3-4 LEVELS WITH MINIMAL THECAL SAC. 2. MINIMAL CENTRAL CANAL STENOSIS AT THE L4-5 LEVEL SECONDARY TO DISC BULGE, - CHRONIC PAIN MANAGEMENT THROUGH DR. SO [facility]) CKD STAGE 3 C. DIFF 10/2017 & 11/2017 & 02/2018 - S/P STOOL TRANSPLANT; STOOL TRANSPLANT 06/12 RECURRENT UTIS S/P PACER 01/2019 MRI BRAIN 01/2019 - TINY LACUNAR INFARCT - OLD ADAN - STARTING CPAP 08/2019 ALLERGIES SEASONAL: NASAL CONGESTION - ALLERGY PEPTO BISMOL: THROAT SWELLS - ALLERGY METFORMIN HCL: CKD - METFORMIN STOPPED BY NEPHRO. - CONTRAINDICATION SOCIAL HISTORY GENERAL: TOBACCO USE ARE YOU A:FORMER SMOKER HOW LONG HAS IT BEEN SINCE YOU LAST SMOKED?> 10 YEARS SMOKING CESSATION INFORMATION GIVEN04/03/2020 LATEX QUESTIONNAIRE LATEX ALLERGY : HAVE YOU EVER DEVELOPED ANY TYPE OF REACTION AFTER HANDLING LATEX PRODUCTS SUCH RUBBER GLOVES, CONDOMS, DIAPHRAGMS, BALLOONS, SOCKS, OR UNDERWEAR?NO LATEX ALLERGY : HAVE YOU EVER DEVELOPED ANY TYPE OF REACTION DURING OR AFTER DENTAL APPOINTMENT, VAGINAL/RECTAL EXAMINATION, SURGICAL PROCEDURE, OR ANY OTHER EXPOSURE?NO DATE ASKED : 04/03/2020 LATEX RISK : HAVE YOU EVER HAD ANY DIFFICULTY BREATHING OR HIVES AFTER EATING OR HANDLING ANY FRUITS, OR VEGETABLES; SUCH KIWI, BANANAS, STONE FRUITS, OR CHESTNUTSNO LATEX RISK : DO YOU HAVE A PREVIOUS PERSONAL HISTORY OF MORE THAN NINE SURGERIES, SPINA BIFIDA, OR REPEATED CATHERIZATIONS? NO LATEX RISK : ARE YOU FREQUENTLY EXPOSED TO LATEX PRODUCTS IN YOUR OCCUPATION?NO LUNG CANCER SCREENING SMOKING STATUS:FORMER SMOKER BMI CARE GOAL FOLLOW-UP ABOVE NORMAL BMI FOLLOW-UPDIETARY MANAGEMENT EDUCATION, GUIDANCE, AND COUNSELING ALCOHOL SCREENING DID YOU HAVE A DRINK CONTAINING ALCOHOL IN THE PAST YEAR?NO POINTS0 INTERPRETATIONNEGATIVE RECREATIONAL DRUG USE DRUG USE?NO CAFFEINE CAFFEINE USE?YES 1CUP COFFEE SEXUAL HX HAD SEX IN THE LAST 12 MONTHS (VAGINAL, ORAL, OR ANAL)?NO LMP:02/2016 HAVE YOU EVER HAD AN STD?NO HIV / HEP-C SCREENING HIV TEST OFFERED TO PATIENT:YES DATE OFFERED:06/30/2016 TEST ACCEPTED:NO REASON:PATIENT DECLINED BROCHURE PROVIDED TO PATIENTNO ANABAPTISM [id number] QUAKER LANGUAGE LANGUAGES SPOKEN:LATVIAN LEARNING BARRIERS / SPECIAL NEEDS CHANGE FROM LAST VISIT?NO BARRIERS TO LEARNING?NO HEARING IMPAIRED?NO VISION IMPAIRED?YES COGNITIVELY IMPAIRED?NO :CORRECTIVE LENSES READINESS TO LEARN?YES LEARNING PREFERENCES?NO LEARNING CAPABILITIES PRESENT?YES EMOTIONAL BARRIERS?NO SPECIAL DEVICES?YES :WALKER ONLY WHEN NEEDED TELEPHONE STERILIZER NEEDED?NO DOMESTIC VIOLENCE DO YOU FEEL SAFE IN YOUR ENVIRONMENT?YES DIET: NO CONCENTRATED SWEETS., CARBOHYDRATE CONTROLLED, LOW FAT, LOW CHOLESTEROL. EXERCISE: WALKS 1 MILE WEATHER PERMITTING. MARITAL STATUS: .. OTHERS AT HOME: CHILD DAUGHTER. - PFS REFERRAL NEEDED?NO CLERGY REFERRAL NEEDED?NO PUBLIC HEALTH REFERRAL NEEDED?NO WAS THE PROVIDER NOTIFIED OF ANY PERTINENT INFO?YES N/A HAS THE PATIENT BEEN EDUCATED REGARDING HIS/HER PLAN OF CARE?YES HAS THE PATIENT BEEN EDUCATED REGARDING PAIN, THE RISK FOR PAIN, THE IMPORTANCE OF EFFECTIVE PAIN MANAGEMENT, AND THE PAIN ASSESSMENT PROCESS?YES ADVANCE DIRECTIVE ADVANCE DIRECTIVE DISCUSSED WITH PATIENT:YES PT HAS HCP USMAN ROBERTS [phone] VITAL SIGNS WT 254.0 LBS, HT 64.25 IN, BMI 43.26 INDEX, BP 188/84 MM HG, HR 82 /MIN, RR 18 /MIN, TEMP 97.7 F, OXYGEN SAT % 93%, SAFE IN ENV? (Y/N) Y, NA INITIALS AW 1307, REVIEWED BY: A.KHURRAM RN. EXAMINATION GENERAL EXAMINATION: THE PATIENT IS ALERT, ORIENTED TIMES THREE AND COOPERATIVE. LUNGS ARE CLEAR TO AUSCULTATION. HEART SHOWS REGULAR RHYTHM, NO MURMURS AND NO GALLOPS. ASSESSMENTS SACROILIITIS, NOT ELSEWHERE CLASSIFIED - M46.1 (PRIMARY) TREATMENT SACROILIITIS, NOT ELSEWHERE CLASSIFIED [facility] FLUORO GUIDANCE (PAIN)[id number] MEDICATION: VALIUM TAB 5MG ORALLY (DIAZEPAM)KAI GUILLEN 04/28/2020 1:30:20 PM > VERIFIED KHURRAM,LUZ 04/28/2020 1:33:08 PM > ADMINISTERED MEDICATION: OXYCODONE HCL TAB 5MG ORALLY KAI GUILLEN 04/28/2020 1:30:50 PM > VERIFIED KHURRAM,LUZ 04/28/2020 1:33:38 PM > ADMINISTERED COMPLETION OF PROCEDURAL VISIT WHEN MEETS CRITERIA OTHERS NOTES: PAT DONE 04/27/20 E SENG CALIBRATION TECHNICIAN 04/27/20 1033. PROCEDURES PAIN NURSING RECORD PROCEDURE IN ROOM 1415, PHYSICIAN IN ROOM 1425, START 1430, FINISH 1436, PHYSICIAN OUT OF ROOM 1438, OUT OF ROOM 1449 VIA STRETCHER, ECG OTHER NSR WITH IVCD, PATIENT SHIELDED YES, SAFETY STRAP YES, PREP CHLOROPREP, DRESSING TEGADERM BY DR. SO LOC: KHURRAMLUZ 04/28/2020 1:35:25 PM > , 1. ALERT, ORIENTED, KHURRAMLUZ 04/28/2020 3:00:49 PM > , 1. ALERT, ORIENTED RESP: LUZ PAULSON 04/28/2020 1:35:33 PM > , 1. REGULAR, NO DYSPNEA, SHEYLA PAULSONITA 04/28/2020 3:00:57 PM > , 1. REGULAR, NO DYSPNEA COLOR: LUZ PAULSON 04/28/2020 1:35:39 PM > , 1. PINK, LUZ PAULSON 04/28/2020 3:01:03 PM > , 1. PINK SKIN: LUZ PAULSON 04/28/2020 1:35:43 PM > , 1. WARM, DRY, LUZ PAULSON 04/28/2020 3:01:12 PM > , 1. WARM, DRY POSITION: LUZ PAULSON 04/28/2020 1:35:50 PM > , 5. SITTING, LUZ PAULSON 04/28/2020 2:16:31 PM > , 1. PRONE, LUZ PAULSON 04/28/2020 3:01:30 PM > , 5. SITTING VITALS: LUZ PAULSON 04/28/2020 2:16:59 PM > 151/78,80,18,97% LUZ PAULSON 04/28/2020 2:32:54 PM > 156/82,76,18,96% LUZ PAULSON 04/28/2020 2:43:48 PM > 151,78,75,18,96% LUZ PAULSON 04/28/2020 3:02:12 PM > 166/88,78,18,100% COMPLETION OF PROCEDURE APPOINTMENT: POST PAIN 0, DRESSING SITE DRY AND INTACT, IV N/A, GAIT STEADY, TEACHING COMPLETED, PATIENT ACKNOWLEDGES UNDERSTANDING YES, PROCEDURE APPOINTMENT COMPLETED AT 1510 PN SI PRE PROCEDURE DIAGNOSIS SACROILIITIS, SACROILIAC JOINT DYSFUNCTION POST PROCEDURE DIAGNOSIS SACROILIITIS, SACROILIAC JOINT DYSFUNCTION PROCEDURE BILATERAL SACROILIAC JOINT BLOCK SURGEON DR. PANDA SO LEGAL BILLING ANALYST NONE ANESTHESIA LOCAL PRE PROCEDURE NOTE THE PATIENT WITH HISTORY OF CHRONIC LOW BACK PAIN. I EVALUATED THE PATIENT AND REVIEWED THE CHART. I WENT OVER THE RISKS, ALTERNATIVES, AND BENEFITS ASSOCIATED WITH THIS PROCEDURE. THE PATIENT WOULD LIKE TO PROCEED AND GAVE CONSENT TO PERFORM THE PROCEDURE. THE PATIENT DENIES UNEXPLAINABLE WEIGHT LOSS, FEVER, CHILLS, OR NEW CHANGES IN URINARY OR BOWEL CONTROL. THE PATIENT IS COVID-19 NEGATIVE DESCRIPTION OF PROCEDURE THE PATIENT WAS BROUGHT TO THE PROCEDURE ROOM AND PLACED IN THE PRONE POSITION. THE LUMBOSACRAL AREA WAS CLEANED WITH CHLORAPREP SOLUTION AND DRAPED ASEPTICALLY. THE PROCEDURE WAS DONE UNDER STERILE CONDITIONS. A TIMEOUT WAS PERFORMED WHERE THE CONSENTED SITE WAS VERIFIED WITH EVERYONE IN THE ROOM. UNDER FLUOROSCOPIC GUIDANCE, THE TARGET POINT WAS SELECTED AT THE LOWER BORDER OF THE RIGHT AND LEFT SACROILIAC JOINT. TARGET POINT WAS SELECTED AFTER MEDIAL ROTATION AND TILT OF THE MAGNIFIER OR THE C-ARM. I CONFIRMED AGAIN THE SITE OF THE TARGET. LIDOCAINE 0.5% WAS USED TO NUMB THE SKIN AND THE SUBCUTANEOUS TISSUE BELOW IT. SPINAL NEEDLES, 22-GAUGE, WERE ADVANCED UNDER FLUOROSCOPIC GUIDANCE AND FOLLOWING PATIENT FEEDBACK UNTIL THE TARGETS WERE TOUCHED. THE POSITION OF THE NEEDLES WAS VERIFIED WITH AP AND OBLIQUE VIEWS. AFTER PROPER POSITION OF THE NEEDLES WAS ACHIEVED, ISOVUE-M DYE 30%, 0.1 ML, WAS INJECTED SHOWING ADEQUATE SPREAD OF THE DYE. KENALOG 20 MG WAS INJECTED AT EACH SITE. THEN, A SOLUTION OF 3.0 ML OF BUPIVACAINE 0.125% WAS USED TO FLUSH EACH NEEDLE. THE MEDICATIONS WERE VERIFIED WITH THE NURSE. THERE WAS NO EVIDENCE OF BLOOD, PARESTHESIA OR CEREBROSPINAL FLUID DURING THE PROCEDURE. THE PATIENT WAS SENT TO THE RECOVERY ROOM. THE PATIENT WAS MOVING THE EXTREMITIES AND DOING WELL. THERE WERE NO COMPLICATIONS DURING THE PROCEDURE. ESTIMATED BLOOD LOSS WAS LESS THAN 5 ML. FLUOROSCOPIC TIME WAS 37 SECONDS. POST PROCEDURE NOTE THE PROCEDURE DONE WAS DISCUSSED WITH THE PATIENT. THE PATIENT WILL BE SEEN IN A FOLLOW UP IN THE NEXT FEW WEEKS. I AM LOOKING FOR LONG LASTING PAIN RELIEF FOR THE PATIENT WITH THIS INTERVENTION. INSTRUCTIONS WERE GIVEN, QUESTIONS WERE ANSWERED, AND THE PATIENT EXPRESSED UNDERSTANDING AND AGREES WITH THE PLAN. I, ROBERTO OLIVIA, DOCUMENTED THE ABOVE INFORMATION ACTING A SCRIBE FOR DR. SO. I HAVE REVIEWED THE ABOVE DOCUMENT, WRITTEN BY ROBERTO OLIVIA, OD GRINDER OPERATOR, AND I VERIFY THAT IT IS ACCURATE PROCEDURE CODES 55093 INJECT SACROILIAC JOINT, MODIFIERS: 50 DISPOSITION & COMMUNICATION FOLLOW UP FOLLOW UP WITH AUTOMATED CUTTING MACHINE OPERATOR (REASON: POST BILATERAL SACROILIAC JOINT BLOCK) ELECTRONICALLY SIGNED BY PANDA SO MD, MD ON 04/29/2020 AT 12:53 PM EST DISCLAIMER : THIS IS A VISIT SUMMARY EXTRACTED FROM THE [employer] CHART. IT IS NOT A COPY OF THE [employer] PROGRESS NOTE. MARYLOU
== END ==
LOC: M PAIN 13:00
PROVIDERS: ATTEND Anesthesiology
DX: M46.1 Sacroiliitis, not elsewhere classified (principal); E78.5 Hyperlipidemia, unspecified; E11.3292 Type 2 diabetes mellitus with mild nonproliferative diabetic retinopathy without macular edema, left eye; E11.22 Type 2 diabetes mellitus with diabetic chronic kidney disease; N18.30 Chronic kidney disease, stage 3 unspecified; I12.9 Hypertensive chronic kidney disease with stage 1 through stage 4 chronic kidney disease, or unspecified chronic kidney disease; Z86.73 Personal history of transient ischemic attack (TIA), and cerebral infarction without residual deficits; J45.909 Unspecified asthma, uncomplicated; F31.9 Bipolar disorder, unspecified; G47.33 Obstructive sleep apnea (adult) (pediatric); Z87.891 Personal history of nicotine dependence; Z79.4 Long term (current) use of insulin; Z79.02 Long term (current) use of antithrombotics/antiplatelets; Z79.82 Long term (current) use of aspirin; Z79.899 Other long term (current) drug therapy; Z88.8 Allergy status to other drugs, medicaments and biological substances
CPT/HCPCS: G0260; J3301; Q9967

== ENCOUNTER → 2020-05-06 | Outpatient (CLI) | payer OTHER, MEDICAID ==
[~2020-05-06] MED LIST changes: -BUPIVACAINE HCL 0.25% 30ML VIAL As Ordered ONE; +HYDR-3490 PO; -HYDR25TAB PO; -ISOVUE-M 300 61% 15ML VIAL As Ordered ONE; -LIDOCAINE 1% SDV 30ML VIAL As Ordered ONE; -LISI-538 PO; +LISI20TA33 PO; -LISI40TA; -LISI40TA PO; +LISI40TA4; +LISI40TA4 PO; -TRIAMCINOLONE ACETONIDE SUSP 40 MG/ML VIAL (J3301) As Ordered ONE; -diazePAM 5MG TABLET As Ordered ONE; -oxyCODONE 5MG TAB As Ordered ONE
--- NOTE | 2020-05-07 17:35 | SLEEPCENT ---
DATE: 05/06/2020 ORDERED BY: Dayana Disla Nocturnal polysomnography was performed for the retitration of pressure therapy in this patient with obstructive sleep apnea syndrome, apnea-hypopnea index of 7.3. The patient was refit with her home mask, AirFit F30 full-face mask of small size and appropriately adjusted. The lights were then dimmed. There was 5 cm of water initially applied to the circuit. There was 9 hours and 2 minutes of data reviewed. There was 324 minutes of sleep identified. Sleep latency was prolonged at 54 minutes. REM sleep was not achieved. Sleep architecture showed fragmentation and poor progression. Overall sleep efficiency is 60.3%. The electrocardiogram showed a sinus rhythm with an average heart rate of 76 beats per minute. EEG showed coarsening in background. There were prominent delta waves. No significant focal activity was appreciated. There were fairly normal waveforms for wake and sleep. Respiratory events were fairly well compensated on CPAP at a pressure of +5. Increases in CPAP pressure prompted the emergence of central events. Some mild hypopneic events were seen at a pressure of 8 late in the study, but these were not accompanied by significant oxygen desaturations. IMPRESSION: Obstructive sleep apnea syndrome. RECOMMENDATION: Nightly use of pressure therapy, 5 cm of water.
== END ==
LOC: M SLEEP 20:00
PROVIDERS: ATTEND Nurse Practitioner Family
DX: G47.33 Obstructive sleep apnea (adult) (pediatric) (principal)

== ENCOUNTER → 2020-05-08 | Outpatient (REF) | payer OTHER, MEDICAID ==
[2020-05-08 13:11] LABS: BASO # 0.1 10^3/uL (0.0-0.2); BASO % 0.4 % (0.0-1.0); EOS # 0.2 10^3/uL (0.0-0.5); EOS % 1.3 % (0.0-3.0); HEMATOCRIT 38.8 % (36.0-47.0); HEMOGLOBIN 12.5 g/dl (12.0-15.5); LYMPH # 2.1 10^3/uL (1.5-5.0); LYMPH % 15.2 % (24.0-44.0); MEAN CORPUSCULAR HEMOGLOBIN 27.3 pg (27.0-33.0); MEAN CORPUSCULAR HGB CONC 32.2 g/dl (32.0-36.5); MEAN CORPUSCULAR VOLUME 84.7 fl (80.0-96.0); MONO # 0.8 10^3/uL (0.0-0.8); MONO % 6.1 % (2.0-8.0); NEUTROPHILS # 10.4 10^3/uL (1.5-8.5); NEUTROPHILS % 75.9 % (36.0-66.0); PLATELET COUNT, AUTOMATED 262 10^3/uL (150-450); RED BLOOD COUNT 4.58 10^6/uL (4.00-5.40); WHITE BLOOD COUNT 13.7 10^3/uL (4.0-10.0)
[2020-05-08 13:49] LABS: ALBUMIN 3.2 GM/DL (3.2-5.2); BILIRUBIN,TOTAL 0.4 MG/DL (0.2-1.0); CALCIUM LEVEL 9.1 MG/DL (8.5-10.1); CREATININE FOR GFR 1.36 MG/DL (0.55-1.30); MAGNESIUM LEVEL 2.1 MG/DL (1.8-2.4); THYROID STIMULATING HORMONE 1.67 uIU/ML (0.358-3.740); TOTAL PROTEIN 7.2 GM/DL (6.4-8.2)
== END ==
LOC: M SFHCADAM 09:04
PROVIDERS: ATTEND Physician Assistant
DX: R19.7 Diarrhea, unspecified (principal); R63.4 Abnormal weight loss; F25.1 Schizoaffective disorder, depressive type; F43.10 Post-traumatic stress disorder, unspecified
CPT/HCPCS: 80053; 83735; 84439; 84443; 85025; 86255; 90834; G0463

== ENCOUNTER → 2020-05-11 | Outpatient (REF) | payer OTHER, MEDICAID | LOC: M SFHCADAM 11:08 | PROVIDERS: ATTEND Physician Assistant | DX: R19.7 Diarrhea, unspecified (principal) ==

== ENCOUNTER → 2020-05-26 | Outpatient (REF) | payer OTHER, MEDICAID ==
[2020-05-26 18:33] LABS: APPEARANCE, URINE CLEAR (CLEAR); BACTERIA, URINE AUTO 2+ (NEGATIVE); BILIRUBIN, URINE AUTO NEGATIVE (NEGATIVE); BLOOD, URINE BLOOD NEGATIVE (NEGATIVE); COLOR, URINE YELLOW (YELLOW); GLUCOSE, URINE (UA) AUTO 1+ mg/dL (NEGATIVE); KETONE, URINE AUTO NEGATIVE (NEGATIVE); LEUKOCYTE ESTERASE, URINE AUTO TRACE (NEGATIVE); MUCUS, URINE SMALL (NEGATIVE); NITRITE, URINE AUTO NEGATIVE (NEGATIVE); PROTEIN, URINE AUTO NEGATIVE (NEGATIVE); RBC, URINE AUTO 1 /HPF (0-3); SPECIFIC GRAVITY URINE AUTO 1.012 (1.002-1.035); SQUAMOUS EPITHELIAL CELL UR AU 1 /HPF (0-6); UROBILINOGEN, URINE AUTO 0.2 mg/dL (0.0-2.0); WBC, URINE AUTO 17 /HPF (0-3)
[2020-05-26 18:36] LABS: BASO # 0.1 10^3/uL (0.0-0.2); BASO % 0.5 % (0.0-1.0); EOS # 0.2 10^3/uL (0.0-0.5); EOS % 1.9 % (0.0-3.0); HEMATOCRIT 41.3 % (36.0-47.0); HEMOGLOBIN 12.5 g/dl (12.0-15.5); LYMPH # 1.8 10^3/uL (1.5-5.0); LYMPH % 16.5 % (24.0-44.0); MEAN CORPUSCULAR HEMOGLOBIN 26.5 pg (27.0-33.0); MEAN CORPUSCULAR HGB CONC 30.3 g/dl (32.0-36.5); MEAN CORPUSCULAR VOLUME 87.7 fl (80.0-96.0); MONO # 0.7 10^3/uL (0.0-0.8); MONO % 6.3 % (2.0-8.0); NEUTROPHILS # 7.9 10^3/uL (1.5-8.5); NEUTROPHILS % 73.9 % (36.0-66.0); PLATELET COUNT, AUTOMATED 217 10^3/uL (150-450); RED BLOOD COUNT 4.71 10^6/uL (4.00-5.40); WHITE BLOOD COUNT 10.7 10^3/uL (4.0-10.0)
[2020-05-26 19:02] LABS: ALBUMIN 3.3 GM/DL (3.2-5.2); BILIRUBIN,TOTAL 0.4 MG/DL (0.2-1.0); CALCIUM LEVEL 9.8 MG/DL (8.5-10.1); CREATININE FOR GFR 1.34 MG/DL (0.55-1.30); GLOMERULAR FILTRATION RATE 43.7 (>51); POTASSIUM SERUM 4.6 MEQ/L (3.5-5.1); TOTAL PROTEIN 7.4 GM/DL (6.4-8.2)
== END ==
LOC: M SFHCADAM 15:55
PROVIDERS: ATTEND Physician Assistant
DX: N30.00 Acute cystitis without hematuria (principal)
CPT/HCPCS: 80053; 81001; 85025; 87088; 87186; G0463

== ENCOUNTER 2020-06-08 15:56 | Outpatient (CLI) | payer OTHER, MEDICAID ==
[~2020-06-08] VITALS: Ht 152.4 cm; Wt 113.0 kg
[2020-06-08] MEDS ORDERED: BEZLOTOXUMAB in NS 100 ML OVER 1 HR IV ONE (16:00)
[2020-06-08 16:26] VITALS: BP 179/77
[2020-06-08 17:59] VITALS: BP 161/79
== END 2020-06-08 18:00 | disposition home or self-care (01) ==
LOC: M INFU 15:56
PROVIDERS: ATTEND Internal Medicine Infectious Disease
DX: A04.71 Enterocolitis due to Clostridium difficile, recurrent (principal); Z88.8 Allergy status to other drugs, medicaments and biological substances
CPT/HCPCS: 96365; J0565

== ENCOUNTER → 2020-06-30 | Outpatient (CLI) | payer OTHER, MEDICAID ==
--- NOTE | 2020-07-04 06:11 | ECWPNPC ---
PATIENT NAME: PRUDENCIO SHAHID : 1965 GENDER: FEMALE VISIT DATE: 06/30/2020 DISCHARGE DATE: 06/30/20 1201 VISIT LOCKED DATE TIME: PHYSICIAN: YULISSA STAUFFER PHYSICIAN PAGER NO: ACTIVE RESOURCE: YULISSA STAUFFER REASON FOR APPOINTMENT 1. POST BILATERAL SACROILIAC JOINT BLOCK HISTORY OF PRESENT ILLNESS GENERAL: HERE FOR POST PROCEDURE F/U.HAD BILATERAL SIJ BLOCK ON 04/28/20.CONTINUES TO HAVE MARKED REDUCTION IN PAIN AND IMPROVED MOBILITY SINCE PROCEDURE.OVERALL DOING WELL.CURRENTLY USING ACETAMINOPHE/CODEINE 300-30 MG TAB ONLY FOR SEVERE PAIN EPISODES.TAKING GABAENTIN 200MG BID.USING TOPICAL LIDOCAINE ON LOW BACK PRN FOR SEVERE PAIN EPISODES. -. FALL RISK SCREENING: SCREENING : NO FALLS REPORTED IN THE LAST YEAR. PAIN SCREENING: PATIENT HAS A COMPLAINT OF ACUTE OR CHRONIC PAIN :YES LOCATION OF PAIN:LOW BACK INTENSITY OF PAIN (SCALE OF 1 TO 10):4 WHAT DOES YOUR PAIN FEEL LIKE:TENDER, SORE DURATION:INTERMITTENT PAIN IS INCREASED BY:ACTIVITIES, PROLONGED STANDING PAIN IS DECREASED BY:USE OF PAIN MEDICATIONS NURSING NOTE: -. PAIN CENTER INTAKE QUESTIONS: DO YOU HAVE A HISTORY OF MRSA? :NO DO YOU TAKE A BLOOD THINNERS? :NO DO YOU HAVE ANY BLEEDING DISORDERS? :NO ANY NEW NUMBNESS OR WEAKNESS IN YOUR LEGS OR ARMS? :NO ANY PACEMAKER,DEFIBRILLATOR, OR DORSAL COLUMN STIMULATOR? :YES PACEMAKER DO YOU HAVE ANY RASHES OR OPEN SORES? :NO ARE YOU ALLERGIC TO IV DYE? :NO ARE YOU DIABETIC? :NO ANY NEW PROBLEMS WITH YOUR MEDICATIONS? :NO HAVE YOU RECEIVED A VACCINE IN THE PAST 30 DAYS? :YES IF SO WHAT VACCINE AND WHEN? 1ST COVID 06/18/2020 DO YOU PLAN TO RECEIVE A VACCINE IN THE NEXT 21 DAYS? :YES IF SO WHAT VACCINE AND WHEN? 2ND COVID 07/14/2020 DO YOU NEED ANY PRESCRIPTION? :NO DO YOU TAKE ANY IMMUNOSUPPRESSIVE MEDICATIONS? :NO DO YOU HAVE ANY KIDNEY OR LIVER DISEASE? :NO IS THERE A CHANCE YOU COULD BE ? :NO ARE YOU BREAST FEEDING? :NO CURRENT MEDICATIONS TAKING DRISDOL 57684 UNIT CAPSULE 1 CAPSULE ORALLY WEEKLY TAKING ZONISAMIDE 25 MG CAPSULE 1 CAPSULES ORALLY BEFORE BEDTIME TAKING CALCIUM 600 + D 600-400 MG-UNIT TABLET 1 TABLET ORALLY ONCE A DAY TAKING MAY HAVE - - DIRECTED PATIENT WOULD BENEFIT FROM A MACHINE OPERATOR REPLANTER ANIMAL DUE TO PSHCYOLOGICAL AND CARDIAC ISSUES TAKING EFFEXOR XR 75 MG CAPSULE EXTENDED RELEASE 24 HOUR 1 CAPSULE WITH FOOD ORALLY ONCE A DAY TAKING PLAVIX 75 MG TABLET 1 TABLET ORALLY ONCE A DAY TAKING ABILIFY MAINTENA 400 MG PREFILLED SYRINGE INTRAMUSCULAR MONTHLY TAKING ZOFRAN 4 MG TABLET 1 TABLETS ORALLY TWICE A DAY NEEDED FOR NAUSEA/VOMITING TAKING ALBUTEROL SULFATE (2.5 MG/3ML) 0.083% NEBULIZATION SOLUTION 3 ML INHALATION QID PRN, NOTES: NONE RECENT TAKING PROAIR HFA 108 (90 BASE) MCG/ACT AEROSOL SOLUTION 2 PUFFS NEEDED INHALATION EVERY 6 HRS NEEDED, NOTES: NONE RECENT TAKING ATORVASTATIN CALCIUM 40 MG TABLET 1 TABLET ORALLY ONCE A DAY TAKING GABAPENTIN 100 MG CAPSULE 2 CAPSULES ORALLY BID TAKING CETIRIZINE HCL 10MG TABLET TAKE ONE TABLET BY MOUTH ONCE DAILY NEEDED TAKING HUMALOG 100 UNIT/ML SOLUTION SLIDING SCALE, IF BLOOD SUGAR IS 150 PT TAKES 14 UNITS, IF IT IS HIGHER THAN THAT 14 UNITS SUBCUTANEOUS SLIDING SCALE, MDD 24 UNITS TAKING LEVEMIR FLEXPEN 100 UNIT/ML SOLUTION 25 UNITS SUBCUTANEOUS TWICE A DAY TAKING VICTOZA 18 MG/3ML SOLUTION PEN-INJECTOR 1.8 ML SUBCUTANEOUS ONCE A DAY TAKING ACTOS 45MG TABLET TAKE 1 TABLET EVERY DAY TAKING ASPIR-81 81 MG TABLET DELAYED RELEASE 1 TABLET ORALLY ONCE A DAY TAKING HYDROCHLOROTHIAZIDE 25 MG TABLET 1 TABLET IN THE MORNING ORALLY ONCE A DAY TAKING AMLODIPINE BESYLATE 2.5 MG TABLET TAKE 1 TABLET EVERY DAY TAKING LASIX 80 MG TABLET 1 TABLET ORALLY ONCE A DAY TAKING ALIGN - CAPSULE DIRECTED ORALLY DAILY TAKING BACID 1 TABLET DIRECTED ORALLY BID TAKING METHENAMINE HIPPURATE 1 GM TABLET TAKE 1 TABLET TWICE DAILY TAKING ESTRADIOL 10 MCG TABLET 1 TABLET VAGINAL TWO TIMES A WEEK TAKING LIDOCAINE-PRILOCAINE 2.5-2.5 % CREAM DIRECTED TO LOW BACK EXTERNALLY TID PRN TAKING ACETAMINOPHEN-CODEINE 300-30 MG TABLET 1 TABLET NEEDED ORALLY EVERY 8 HRS MDD 3 NOT-TAKING VANCOMYCIN HCL 125 MG CAPSULE 1 TAB QID X 1 WK, THEN 1 TAB BID X 1 WK, THEN 1 TAB DAILY X 1 WK, THEN 1 TAB QOD X 1 WK, THEN 1 TAB Q3 DAYS ORALLY DIRECTED NOT-TAKING FLUCONAZOLE 150 MG TABLET 1 TABLET ORALLY DAILY MEDICATION LIST REVIEWED AND RECONCILED WITH THE PATIENT PAST MEDICAL HISTORY HYPERLIPIDEMIA DIABETES MELLITUS - WITH NON-PROLIFERATIVE RETINOPATHY LEFT EYE PER CENTER FOR SIGHT 06/2013. 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 DIFFUSE DISC BULGES AT THE L1-2 AND L3-4 LEVELS WITH MINIMAL THECAL SAC. 2. MINIMAL CENTRAL CANAL STENOSIS AT THE L4-5 LEVEL SECONDARY TO DISC BULGE, - CHRONIC PAIN MANAGEMENT THROUGH DR[facility]) CKD STAGE 3 C. DIFF 10/2017 & 11/2017 & 02/2018, 04/2019 - S/P STOOL TRANSPLANT; STOOL TRANSPLANT 06/12 RECURRENT UTIS S/P PACER 01/2019 MRI BRAIN 01/2019 - TINY LACUNAR INFARCT - OLD ADAN - STARTING CPAP 08/2019 ALLERGIES SEASONAL: NASAL CONGESTION - ALLERGY PEPTO BISMOL: THROAT SWELLS - ALLERGY METFORMIN HCL: CKD - METFORMIN STOPPED BY NEPHRO. - CONTRAINDICATION SOCIAL HISTORY GENERAL: TOBACCO USE ARE YOU A:FORMER SMOKER HOW LONG HAS IT BEEN SINCE YOU LAST SMOKED?> 10 YEARS SMOKING CESSATION INFORMATION GIVEN04/03/2020 LATEX QUESTIONNAIRE LATEX ALLERGY : HAVE YOU EVER DEVELOPED ANY TYPE OF REACTION AFTER HANDLING LATEX PRODUCTS SUCH RUBBER GLOVES, CONDOMS, DIAPHRAGMS, BALLOONS, SOCKS, OR UNDERWEAR?NO LATEX ALLERGY : HAVE YOU EVER DEVELOPED ANY TYPE OF REACTION DURING OR AFTER DENTAL APPOINTMENT, VAGINAL/RECTAL EXAMINATION, SURGICAL PROCEDURE, OR ANY OTHER EXPOSURE?NO LATEX RISK : HAVE YOU EVER HAD ANY DIFFICULTY BREATHING OR HIVES AFTER EATING OR HANDLING ANY FRUITS, OR VEGETABLES; SUCH KIWI, BANANAS, STONE FRUITS, OR CHESTNUTSNO LATEX RISK : DO YOU HAVE A PREVIOUS PERSONAL HISTORY OF MORE THAN NINE SURGERIES, SPINA BIFIDA, OR REPEATED CATHERIZATIONS? NO LATEX RISK : ARE YOU FREQUENTLY EXPOSED TO LATEX PRODUCTS IN YOUR OCCUPATION?NO DATE ASKED : 06/30/2020 ALCOHOL USE: NO. LUNG CANCER SCREENING SMOKING STATUS:FORMER SMOKER BMI CARE GOAL FOLLOW-UP ABOVE NORMAL BMI FOLLOW-UPDIETARY MANAGEMENT EDUCATION, GUIDANCE, AND COUNSELING ALCOHOL SCREENING DID YOU HAVE A DRINK CONTAINING ALCOHOL IN THE PAST YEAR?NO POINTS0 INTERPRETATIONNEGATIVE RECREATIONAL DRUG USE DRUG USE?NO CAFFEINE CAFFEINE USE?YES 1CUP COFFEE SEXUAL HX HAD SEX IN THE LAST 12 MONTHS (VAGINAL, ORAL, OR ANAL)?NO LMP:02/2016 HAVE YOU EVER HAD AN STD?NO HIV / HEP-C SCREENING HIV TEST OFFERED TO PATIENT:YES DATE OFFERED:06/30/2016 TEST ACCEPTED:NO REASON:PATIENT DECLINED BROCHURE PROVIDED TO PATIENTNO YARSANISM [id number] L[employer] LANGUAGES SPOKEN:ECUADOREAN LEARNING BARRIERS / SPECIAL NEEDS CHANGE FROM LAST VISIT?NO BARRIERS TO LEARNING?NO HEARING IMPAIRED?NO VISION IMPAIRED?YES :CORRECTIVE LENSES COGNITIVELY IMPAIRED?NO READINESS TO LEARN?YES LEARNING PREFERENCES?NO LEARNING CAPABILITIES PRESENT?YES EMOTIONAL BARRIERS?NO SPECIAL DEVICES?YES :WALKER ONLY WHEN NEEDED LOOSELEAF BINDER COVERER NEEDED?NO DOMESTIC VIOLENCE DO YOU FEEL SAFE IN YOUR ENVIRONMENT?YES OCCUPATION: RETIRED. DIET: NO CONCENTRATED SWEETS., CARBOHYDRATE CONTROLLED, LOW FAT, LOW CHOLESTEROL. EXERCISE: WALKS 1 MILE WEATHER PERMITTING. MARITAL STATUS: .. OTHERS AT HOME: CHILD DAUGHTER. - PFS REFERRAL NEEDED?NO CLERGY REFERRAL NEEDED?NO PUBLIC HEALTH REFERRAL NEEDED?NO WAS THE PROVIDER NOTIFIED OF ANY PERTINENT INFO?YES N/A HAS THE PATIENT BEEN EDUCATED REGARDING HIS/HER PLAN OF CARE?YES HAS THE PATIENT BEEN EDUCATED REGARDING PAIN, THE RISK FOR PAIN, THE IMPORTANCE OF EFFECTIVE PAIN MANAGEMENT, AND THE PAIN ASSESSMENT PROCESS?YES ADVANCE DIRECTIVE ADVANCE DIRECTIVE DISCUSSED WITH PATIENT:YES PT HAS HCP USMAN ROBERTS [phone] REVIEW OF SYSTEMS CONSTITUTIONAL: ANY RECENT FEVER NO . CHILLS NO . WEIGHT CHANGE OF UNKNOWN REASONS NO . GASTROENTEROLOGY: NEW UNEXPLAINABLE CHANGES IN BOWEL CONTROL NO . CONSTIPATION NO . GENITOURINARY: ANY NEW CHANGE IN BLADDER CONTROL? NO . NEUROLOGY: NEW ONSET DIZZINESS OR NEUROLOGICAL CHANGES NOT MENTIONED NO . NEW NUMBNESS OR PAIN PATTERNS NOT MENTIONED AND PERTINENT TO TODAY'S VISIT NO . CARDIOLOGY: NEW CHEST PRESSURE NO . PATIENT DENIES NO . RESPIRATORY: UNEXPLAINABLE COUGH NO . NEW SHORTNESS OF BREATH NO . VITAL SIGNS WT 291 LBS, HT 64.25 IN, BMI 49.56 INDEX, BP 132/77 MM HG, HR 81 /MIN, RR 18 /MIN, TEMP 97.1 F, OXYGEN SAT % 97%, SAFE IN ENV? (Y/N) YEST.VI MUNROE. EXAMINATION GENERAL EXAMINATION: GENERALAWAKE,ALERT ,PLEASANT . PSYCHAFFECT NORMAL . LUNGS:LUNG TOWNSEND ARE CLEAR TO AUSCULTATION BILATERALLY. GOOD MOVEMENT OF AIR . HEART:S1, S2 IN A REGULAR RATE AND RHYTHM. NO SIGNIFICANT MURMURS, RUBS OR GALLOPS NOTED . ASSESSMENTS SACROILIITIS, NOT ELSEWHERE CLASSIFIED - M46.1 (PRIMARY) OTHER CHRONIC PAIN - G89.29 TREATMENT OTHER CHRONIC PAIN PAIN PROCEDURE LOGDATE OF PROCEDURE1PROCEDURE:BILATERAL SACROILIAC JOINT BLOCKAMOUNT OF PRE SEDATEVALIUM 5MG, OXYCODONE 5MGRESULT:CONTINUES TO HAVE REDUCED PAIN AND IMPROVED ACTIVITY TOLERANCE SINCE PROCEDURE PROCEDURE CODES FA211 ESTABILISHED PATIENT FORMERLY [facility] CHARGE DISPOSITION & COMMUNICATION FOLLOW UP 2 MONTHS (REASON: EVALUATE LBP-RESPONDS WELL TI SIJ) ELECTRONICALLY SIGNED BY GAY CEDEÑO ON 07/03/2020 AT 02:23 PM EDT DISCLAIMER : THIS IS A VISIT SUMMARY EXTRACTED FROM THE [employer] CHART. IT IS NOT A COPY OF THE [employer] PROGRESS NOTE. MARYLOU
== END ==
LOC: M PAIN 11:00
PROVIDERS: ATTEND Nurse Practitioner Family
DX: G89.29 Other chronic pain (principal); M46.1 Sacroiliitis, not elsewhere classified; E78.5 Hyperlipidemia, unspecified; E11.3292 Type 2 diabetes mellitus with mild nonproliferative diabetic retinopathy without macular edema, left eye; N18.30 Chronic kidney disease, stage 3 unspecified; E11.22 Type 2 diabetes mellitus with diabetic chronic kidney disease; I12.9 Hypertensive chronic kidney disease with stage 1 through stage 4 chronic kidney disease, or unspecified chronic kidney disease; J45.909 Unspecified asthma, uncomplicated; F31.9 Bipolar disorder, unspecified; G47.33 Obstructive sleep apnea (adult) (pediatric); Z87.891 Personal history of nicotine dependence; Z79.02 Long term (current) use of antithrombotics/antiplatelets; Z79.4 Long term (current) use of insulin; Z79.891 Long term (current) use of opiate analgesic; Z79.899 Other long term (current) drug therapy; Z88.8 Allergy status to other drugs, medicaments and biological substances

== ENCOUNTER 2020-07-13 10:04 | Emergency (ER) | payer OTHER, MEDICAID ==
[~2020-07-13] VITALS: Ht 152.4 cm; Wt 112.7 kg
--- NOTE | 2020-07-13 10:49 | REP ---
INDICATION: FALL/DECREASED ROM. Bilateral knee series. COMPARISON: Comparison left knee radiographs are from September 18, 2018.. TECHNIQUE: Ten views, 5 on each side. FINDINGS: Five views of the each knee demonstrate diffuse osteopenia. There is medial and patellofemoral compartment osteoarthritic narrowing and spur formation bilaterally. There is no evidence of fracture, subluxation, erosive change, or joint effusion on either side. Osteoarthritic changes are radiographically stable from the September 18, 2018 study on the left. In comparison with a September 05, 2009 prior right knee study, there has been significant progression on the right.. . No opaque foreign body noted. IMPRESSION: Moderate bilateral osteoarthritis. Diffuse osteopenia. No acute bony abnormality.. <Electronically signed by Rico Shane > 07/13/20 [id number]
[2020-07-13 12:55] VITALS: BP 146/95
== END 2020-07-13 13:02 | disposition home or self-care (01) ==
LOC: M ED 10:04
DX: S80.02XA Contusion of left knee, initial encounter (principal); M17.0 Bilateral primary osteoarthritis of knee; W01.0XXA Fall on same level from slipping, tripping and stumbling without subsequent striking against object, initial encounter; Z79.4 Long term (current) use of insulin; Z79.51 Long term (current) use of inhaled steroids; Z79.82 Long term (current) use of aspirin; Z79.899 Other long term (current) drug therapy; Z88.8 Allergy status to other drugs, medicaments and biological substances; Y92.9 Unspecified place or not applicable; Y93.9 Activity, unspecified; Y99.9 Unspecified external cause status

== ENCOUNTER → 2020-07-22 | Outpatient (CLI) | payer OTHER, MEDICAID ==
[~2020-07-22] MED LIST changes: +BACTDSTA PO; +LIDO1CRE42 EX; -LIDO2.5C15 EX; -SULF1TAB93 PO
--- NOTE | 2020-07-22 14:43 | REP ---
INDICATION: PAIN. COMPARISON: 07/13/2020. TECHNIQUE: PA standing view bilateral knees. FINDINGS: There is no evidence of acute fracture or dislocation. There is moderately severe medial joint space narrowing bilaterally. There is mild diffuse spurring. There is mild subchondral sclerosis in the medial tibial plateau. IMPRESSION: Moderately severe medial joint space narrowing bilaterally. <Electronically signed by Michael Farrell > 07/22/20 [id number]
== END ==
LOC: M SOG 07-21 11:41
PROVIDERS: ATTEND Orthopaedic Surgery Adult Reconstructive Orthopaedic Surgery
DX: M17.0 Bilateral primary osteoarthritis of knee (principal); M25.561 Pain in right knee; M25.562 Pain in left knee

== ENCOUNTER → 2020-07-22 | Outpatient (REF) | payer OTHER, MEDICAID ==
[~2020-07-22] MED LIST changes: -BACTDSTA PO; -LIDO1CRE42 EX; +LIDO2.5C15 EX; +SULF1TAB93 PO
== END ==
LOC: M SFHCPLAZ 14:22
PROVIDERS: ATTEND Internal Medicine Infectious Disease
DX: A04.71 Enterocolitis due to Clostridium difficile, recurrent (principal)

== ENCOUNTER → 2020-08-04 | Outpatient (CLI) | payer OTHER, MEDICAID ==
[~2020-08-04] MED LIST changes: +BACTDSTA PO; +LIDO1CRE42 EX; -LIDO2.5C15 EX; -SULF1TAB93 PO
--- NOTE | 2020-08-07 00:56 | ECWPNPC ---
PATIENT NAME: PRUDENCIO SHAHID : 1965 GENDER: FEMALE VISIT DATE: 08/04/2020 DISCHARGE DATE: 08/04/20 1358 VISIT LOCKED DATE TIME: PHYSICIAN: YULISSA STAUFFER PHYSICIAN PAGER NO: ACTIVE RESOURCE: YULISSA STAUFFER REASON FOR APPOINTMENT 1. NECK HISTORY OF PRESENT ILLNESS DEPRESSION SCREENING: PHQ-2 (2015 EDITION) LITTLE INTEREST OR PLEASURE IN DOING THINGS?NOT AT ALL FEELING DOWN, DEPRESSED, OR HOPELESS?NOT AT ALL TOTAL SCORE0 GENERAL: 54-YEAR-OLD FEMALE BEING REFERRED BY FERCHO MCLAUGHLIN AT [facility] FOR EVALUATION OF PERSISTENT NECK PAIN. STATES SHE'S HAD AN INCREASE IN NECK PAIN SINCE FALLING FORWARD ONTO HER KNEES AND HANDS IN MAY 2020. RECENT CT SCAN OF CERVICAL SPINE IS REVIEWED. SHE IS UNABLE TO HAVE MRIS DUE TO PACEMAKER. PAIN IS AGGRAVATED IN THE UPPER THORACIC AND LOWER CERVICAL AREA WITH RANGE OF JOINT MOTION OF HER ARMS. HISTORY OF EXTENSIVE BACK SURGERY MANY YEARS AGO FOR LIPOMA REMOVALS. SHE FOLLOWS HERE AT THE PAIN CLINIC FOR MEDICATION MANAGEMENT FOR CHRONIC THORACIC AND LOW BACK PAIN. DISCUSSED MEDICATION AND TREATMENT PLAN. ON CHRONIC PLAVIX THERAPY FOR HISTORY OF STROKE AND TIAS IN THE DISTANT PAST. - - - - -. FALL RISK SCREENING: SCREENING : NO FALLS REPORTED IN THE LAST YEAR , 06/10/2020 ONE FALL HURT BOTH KNEE , PATIENT STATED THAT SHE WENT TO ER. PAIN SCREENING: PATIENT HAS A COMPLAINT OF ACUTE OR CHRONIC PAIN :YES LOCATION OF PAIN:NECK INTENSITY OF PAIN (SCALE OF 1 TO 10):6 WHAT DOES YOUR PAIN FEEL LIKE:ACHING, TENDER, SORE DURATION:CONTINOUS, CONSTANT, ALL DAY PAIN IS INCREASED BY:ACTIVITIES, PROLONGED STANDING PAIN IS DECREASED BY:USE OF PAIN MEDICATIONS NURSING NOTE: - - - - -. PAIN CENTER INTAKE QUESTIONS: DO YOU HAVE A HISTORY OF MRSA? :NO DO YOU TAKE A BLOOD THINNERS? :YES PLAVIX DO YOU HAVE ANY BLEEDING DISORDERS? :NO ANY NEW NUMBNESS OR WEAKNESS IN YOUR LEGS OR ARMS? :NO ANY PACEMAKER,DEFIBRILLATOR, OR DORSAL COLUMN STIMULATOR? :YES PACEMAKER DO YOU HAVE ANY RASHES OR OPEN SORES? :NO ARE YOU ALLERGIC TO IV DYE? :NO ARE YOU DIABETIC? :YES ANY NEW PROBLEMS WITH YOUR MEDICATIONS? :NO HAVE YOU RECEIVED A VACCINE IN THE PAST 30 DAYS? :YES 2ND COVID 07/14/2020 DO YOU PLAN TO RECEIVE A VACCINE IN THE NEXT 21 DAYS? :NO DO YOU NEED ANY PRESCRIPTION? :NO DO YOU TAKE ANY IMMUNOSUPPRESSIVE MEDICATIONS? :NO IS THERE A CHANCE YOU COULD BE ? :NO ARE YOU BREAST FEEDING? :NO CURRENT MEDICATIONS TAKING DRISDOL 45953 UNIT CAPSULE 1 CAPSULE ORALLY WEEKLY TAKING ZONISAMIDE 25 MG CAPSULE 1 CAPSULES ORALLY BEFORE BEDTIME TAKING CALCIUM 600 + D 600-400 MG-UNIT TABLET 1 TABLET ORALLY ONCE A DAY TAKING MAY HAVE - - DIRECTED PATIENT WOULD BENEFIT FROM A GROUNDS SUPERVISOR ANIMAL DUE TO PSHCYOLOGICAL AND CARDIAC ISSUES TAKING EFFEXOR XR 75 MG CAPSULE EXTENDED RELEASE 24 HOUR 1 CAPSULE WITH FOOD ORALLY ONCE A DAY TAKING PLAVIX 75 MG TABLET 1 TABLET ORALLY ONCE A DAY TAKING ABILIFY MAINTENA 400 MG PREFILLED SYRINGE INTRAMUSCULAR MONTHLY TAKING ZOFRAN 4 MG TABLET 1 TABLETS ORALLY TWICE A DAY NEEDED FOR NAUSEA/VOMITING TAKING ALBUTEROL SULFATE (2.5 MG/3ML) 0.083% NEBULIZATION SOLUTION 3 ML INHALATION QID PRN, NOTES: NONE RECENT TAKING PROAIR HFA 108 (90 BASE) MCG/ACT AEROSOL SOLUTION 2 PUFFS NEEDED INHALATION EVERY 6 HRS NEEDED, NOTES: NONE RECENT TAKING ATORVASTATIN CALCIUM 40 MG TABLET 1 TABLET ORALLY ONCE A DAY TAKING GABAPENTIN 100 MG CAPSULE 2 CAPSULES ORALLY BID TAKING CETIRIZINE HCL 10MG TABLET TAKE ONE TABLET BY MOUTH ONCE DAILY NEEDED TAKING ALIGN - CAPSULE DIRECTED ORALLY DAILY TAKING LIDOCAINE-PRILOCAINE 2.5-2.5 % CREAM DIRECTED TO LOW BACK EXTERNALLY TID PRN TAKING ACETAMINOPHEN-CODEINE 300-30 MG TABLET 1 TABLET NEEDED ORALLY EVERY 8 HRS MDD 3 TAKING VOLTAREN 1 % GEL DIRECTED EXTERNALLY TAKING HUMALOG 100 UNIT/ML SOLUTION SLIDING SCALE, IF BLOOD SUGAR IS 150 PT TAKES 14 UNITS, IF IT IS HIGHER THAN THAT 14 UNITS SUBCUTANEOUS SLIDING SCALE, MDD 24 UNITS, NOTES: 04/27/20 14UNITS 1730 TAKING LEVEMIR FLEXPEN 100 UNIT/ML SOLUTION 25 UNITS SUBCUTANEOUS TWICE A DAY TAKING VICTOZA 18 MG/3ML SOLUTION PEN-INJECTOR 1.8 ML SUBCUTANEOUS ONCE A DAY TAKING ACTOS 45MG TABLET TAKE 1 TABLET EVERY DAY TAKING ASPIR-81 81 MG TABLET DELAYED RELEASE 1 TABLET ORALLY ONCE A DAY TAKING HYDROCHLOROTHIAZIDE 25 MG TABLET 1 TABLET IN THE MORNING ORALLY ONCE A DAY TAKING AMLODIPINE BESYLATE 2.5 MG TABLET TAKE 1 TABLET EVERY DAY , NOTES: 04/28/20 0700 TAKING LASIX 80 MG TABLET 1 TABLET ORALLY ONCE A DAY TAKING METHENAMINE HIPPURATE 1 GM TABLET TAKE 1 TABLET TWICE DAILY TAKING ESTRADIOL 10 MCG TABLET 1 TABLET VAGINAL TWO TIMES A WEEK TAKING DIFICID 200 MG TABLET 1 TABLET ORALLY TWICE A DAY TAKING BACID 1 TABLET DIRECTED ORALLY BID NOT-TAKING VANCOMYCIN HCL 125 MG CAPSULE 1 TAB QID X 1 WK, THEN 1 TAB BID X 1 WK, THEN 1 TAB DAILY X 1 WK, THEN 1 TAB QOD X 1 WK, THEN 1 TAB Q3 DAYS ORALLY DIRECTED NOT-TAKING FLUCONAZOLE 150 MG TABLET 1 TABLET ORALLY DAILY MEDICATION LIST REVIEWED AND RECONCILED WITH THE PATIENT PAST MEDICAL HISTORY HYPERLIPIDEMIA DIABETES MELLITUS - WITH NON-PROLIFERATIVE RETINOPATHY LEFT EYE PER CENTER FOR SIGHT 06/2013. 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 DIFFUSE DISC BULGES AT THE L1-2 AND L3-4 LEVELS WITH MINIMAL THECAL SAC. 2. MINIMAL CENTRAL CANAL STENOSIS AT THE L4-5 LEVEL SECONDARY TO DISC BULGE, - CHRONIC PAIN MANAGEMENT THROUGH [facility]) CKD STAGE 3 - FOLLOWS WITH NEPHROLOGY C. DIFF 10/2017 & 11/2017 & 02/2018, 04/2019 - S/P STOOL TRANSPLANT; STOOL TRANSPLANT 06/12 RECURRENT UTIS S/P PACER 01/2019 MRI BRAIN 01/2019 - TINY LACUNAR INFARCT - OLD ADAN - STARTING CPAP 08/2019 ALLERGIES SEASONAL: NASAL CONGESTION - ALLERGY PEPTO BISMOL: THROAT SWELLS - ALLERGY METFORMIN HCL: CKD - METFORMIN STOPPED BY NEPHRO. 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 1 SON(S) , 2 DAUGHTER(S) - HEALTHY. ONE BROTHER FROM CARDIAC COMPLICATION\\\\\\\\NDAUGHTERS HAVE DEPRESSION. SOCIAL HISTORY GENERAL: TOBACCO USE ARE YOU A:FORMER SMOKER HOW LONG HAS IT BEEN SINCE YOU LAST SMOKED?> 10 YEARS SMOKING CESSATION INFORMATION GIVEN04/03/2020 LATEX QUESTIONNAIRE LATEX ALLERGY : HAVE YOU EVER DEVELOPED ANY TYPE OF REACTION AFTER HANDLING LATEX PRODUCTS SUCH RUBBER GLOVES, CONDOMS, DIAPHRAGMS, BALLOONS, SOCKS, OR UNDERWEAR?NO LATEX ALLERGY : HAVE YOU EVER DEVELOPED ANY TYPE OF REACTION DURING OR AFTER DENTAL APPOINTMENT, VAGINAL/RECTAL EXAMINATION, SURGICAL PROCEDURE, OR ANY OTHER EXPOSURE?NO LATEX RISK : HAVE YOU EVER HAD ANY DIFFICULTY BREATHING OR HIVES AFTER EATING OR HANDLING ANY FRUITS, OR VEGETABLES; SUCH KIWI, BANANAS, STONE FRUITS, OR CHESTNUTSNO LATEX RISK : DO YOU HAVE A PREVIOUS PERSONAL HISTORY OF MORE THAN NINE SURGERIES, SPINA BIFIDA, OR REPEATED CATHERIZATIONS? NO LATEX RISK : ARE YOU FREQUENTLY EXPOSED TO LATEX PRODUCTS IN YOUR OCCUPATION?NO DATE ASKED : 08/04/2020 ALCOHOL USE: NO. LUNG CANCER SCREENING SMOKING STATUS:FORMER SMOKER BMI CARE GOAL FOLLOW-UP ABOVE NORMAL BMI FOLLOW-UPDIETARY MANAGEMENT EDUCATION, GUIDANCE, AND COUNSELING ALCOHOL SCREENING DID YOU HAVE A DRINK CONTAINING ALCOHOL IN THE PAST YEAR?NO POINTS0 INTERPRETATIONNEGATIVE RECREATIONAL DRUG USE DRUG USE?NO CAFFEINE CAFFEINE USE?YES 1CUP COFFEE SEXUAL HX HAD SEX IN THE LAST 12 MONTHS (VAGINAL, ORAL, OR ANAL)?NO LMP:02/2016 HAVE YOU EVER HAD AN STD?NO HIV / HEP-C SCREENING HIV TEST OFFERED TO PATIENT:YES DATE OFFERED:06/30/2016 TEST ACCEPTED:NO REASON:PATIENT DECLINED BROCHURE PROVIDED TO PATIENTNO CONGREGATION [id number] DENOMINATIONAL LANGUAGE LANGUAGES SPOKEN:WELSH LEARNING BARRIERS / SPECIAL NEEDS CHANGE FROM LAST VISIT?NO BARRIERS TO LEARNING?NO HEARING IMPAIRED?NO VISION IMPAIRED?YES :CORRECTIVE LENSES COGNITIVELY IMPAIRED?NO READINESS TO LEARN?YES LEARNING PREFERENCES?NO LEARNING CAPABILITIES PRESENT?YES EMOTIONAL BARRIERS?NO SPECIAL DEVICES?YES :WALKER ONLY WHEN NEEDED TANK OPERATOR NEEDED?NO DOMESTIC VIOLENCE DO YOU FEEL SAFE IN YOUR ENVIRONMENT?YES OCCUPATION: RETIRED. DIET: NO CONCENTRATED SWEETS., CARBOHYDRATE CONTROLLED, LOW FAT, LOW CHOLESTEROL. EXERCISE: WALKS 1 MILE WEATHER PERMITTING. MARITAL STATUS: .. OTHERS AT HOME: CHILD DAUGHTER. - PFS REFERRAL NEEDED?NO CLERGY REFERRAL NEEDED?NO PUBLIC HEALTH REFERRAL NEEDED?NO WAS THE PROVIDER NOTIFIED OF ANY PERTINENT INFO?YES N/A HAS THE PATIENT BEEN EDUCATED REGARDING HIS/HER PLAN OF CARE?YES HAS THE PATIENT BEEN EDUCATED REGARDING PAIN, THE RISK FOR PAIN, THE IMPORTANCE OF EFFECTIVE PAIN MANAGEMENT, AND THE PAIN ASSESSMENT PROCESS?YES ADVANCE DIRECTIVE ADVANCE DIRECTIVE DISCUSSED WITH PATIENT:YES PT HAS HCP USMANPeter ROBERTS [phone] HOSPITALIZATION/MAJOR DIAGNOSTIC PROCEDURE 3 DAYS FOR TIA 06/2013 SURGERIES PACER ACTING UP, OBSERVED REVIEW OF SYSTEMS CONSTITUTIONAL: ANY RECENT FEVER NO . CHILLS NO . WEIGHT CHANGE OF UNKNOWN REASONS NO . GASTROENTEROLOGY: NEW UNEXPLAINABLE CHANGES IN BOWEL CONTROL NO . CONSTIPATION NO . GENITOURINARY: ANY NEW CHANGE IN BLADDER CONTROL? NO . NEUROLOGY: NEW ONSET DIZZINESS OR NEUROLOGICAL CHANGES NOT MENTIONED NO . NEW NUMBNESS OR PAIN PATTERNS NOT MENTIONED AND PERTINENT TO TODAY'S VISIT NO . CARDIOLOGY: NEW CHEST PRESSURE NO . PATIENT DENIES NO . RESPIRATORY: UNEXPLAINABLE COUGH NO . NEW SHORTNESS OF BREATH NO . VITAL SIGNS WT 248 LBS, HT 64.25 IN, BMI 42.23 INDEX, BP 179/84 MM HG, HR 86 /MIN, RR 18 /MIN, TEMP 97.4 F, OXYGEN SAT % 94%, SAFE IN ENV? (Y/N) YEST.VI MUNROE. EXAMINATION GENERAL EXAMINATION: GENERALNO ACUTE DISTRESS, WELL NOURISHED AND HYDRATED. PSYCH AFFECT FLAT. FACE:UNREMARKABLE. NECK:NO LYMPHADENOPATHY, SUPPLE. LUNGS:CLEAR TO AUSCULTATION BILATERALLY, NO WHEEZES, RHONCHI, RALES. HEART:NO MURMURS, REGULAR RATE AND RHYTHM. THORACIC SPINE:EXTENSIVE WELL-HEALED SURGICAL SCAR OVER THORACIC AND LUMBAR SPINE TRIGGER POINTS: UPPER THORACIC PARASPINAL REGION. PAIN IS AGGRAVATED IN THIS AREA WITH RANGE OF JOINT MOTION OF THE ARMS.. DIAGNOSTIC TESTS REVIEWED CT SCAN CERVICAL 2020. ASSESSMENTS MYALGIA, OTHER SITE - M79.18 (PRIMARY) TREATMENT MYALGIA, OTHER SITE MEDICATION: VALIUM TAB 5MG ORALLY (DIAZEPAM) (ORDERED FOR 08/11/2020) MEDICATION: OXYCODONE HCL TAB 5MG ORALLY (ORDERED FOR 08/11/2020) NOTES: AFTER DISCUSSING POTENTIAL RISKS OF TRIGGER POINT INJECTIONS ON PLAVIX THERAPY PATIENT HAS AGREED TO WANTING TO HOLD PLAVIX PER CLINIC GUIDELINES. WE'LL SEND A MED HOLD REQUEST TO DR. RUIZ WHO PRESCRIBES PLAVIX. PATIENT IS ADVISED TO USE [id number] TOPICAL MEDICATIONS I.E. BENGAY OR LIDOCAINE TO UPPER THORACIC BACK AREA. , TRIGGER POINT INJECTIONS BILATERAL NECK, BILATERAL THORACIC/MED HOLD PRINTED AND REVIEWED PRE PROCEDURE INFORMATION, PATIENT VERBALIZED UNDERSTANDING FRANCIS MUNROE. PROCEDURE CODES [id number] ESTABILISHED PATIENT [facility] CHARGE DISPOSITION & COMMUNICATION FOLLOW UP POST (REASON: , TRIGGER POINT INJECTIONS BILATERAL NECK, BILATERAL THORACIC/MED HOLD) ELECTRONICALLY SIGNED BY GAY CEDEÑO ON 08/06/2020 AT 08:49 AM EDT DISCLAIMER : THIS IS A VISIT SUMMARY EXTRACTED FROM THE [employer] CHART. IT IS NOT A COPY OF THE [email or web address] PROGRESS NOTE. MARYLOU
== END ==
LOC: M PAIN 13:00
PROVIDERS: ATTEND Nurse Practitioner Family
DX: M79.18 Myalgia, other site (principal); E11.9 Type 2 diabetes mellitus without complications; J45.909 Unspecified asthma, uncomplicated; G47.33 Obstructive sleep apnea (adult) (pediatric); Z86.59 Personal history of other mental and behavioral disorders; Z95.0 Presence of cardiac pacemaker; Z86.73 Personal history of transient ischemic attack (TIA), and cerebral infarction without residual deficits; Z87.891 Personal history of nicotine dependence; Z88.8 Allergy status to other drugs, medicaments and biological substances; E66.01 Morbid (severe) obesity due to excess calories; Z68.41 Body mass index [BMI] 40.0-44.9, adult; Z79.01 Long term (current) use of anticoagulants; Z79.4 Long term (current) use of insulin; Z79.82 Long term (current) use of aspirin; Z79.899 Other long term (current) drug therapy

== ENCOUNTER → 2020-08-15 | Outpatient (CLI) | payer OTHER, MEDICAID ==
--- NOTE | 2020-08-15 12:30 | REP ---
INDICATION: LUNG NODULE. COMPARISON: Comparison CT pulmonary angiogram 03/16/2020.. TECHNIQUE: Helical scanning is acquired. 3 mm axial images are generated. Coronal and sagittal MPR and coronal MIP images are generated. FINDINGS: Digital preliminary bed placement coordinator radiograph demonstrates a bipolar pacemaker in the right heart view of the left side. On axial CT images, there is a 4 mm pleural based nodule in the left upper lobe posteriorly on page 22 of 100 and series 201 of today's study. There is a perifissural 4 mm nodular density in the superior segment of the right lower lobe projecting on page 40. There is another perifissural nodule in the right middle lobe projecting on page 47. These perifissural nodules are felt to be benign. On axial image page 44 of 100 in series 201 of today's study, there is an infrahilar nodule in the right upper lobe which also appears to be a perifissural nodule along the minor fissure based on coronal and sagittal MPR images. These are all unchanged from the 03/16/[address] study. No new pulmonary nodule or mass lesion is seen. There is some left coronary artery vascular calcification. No mediastinal mass or adenopathy is observed. There are stable mediastinal lymph nodes also unchanged. No adrenal lesion is observed. The visualized upper abdominal structures are otherwise unremarkable. No bony destructive lesion is seen. IMPRESSION: Multiple small subcentimeter stable pulmonary nodules most of which are perifissural benign nodules. These are unchanged from March 16, 2020 prior study. If this patient is considered at risk for pulmonary malignancy, repeat CT study can be performed in 1 year. <Electronically signed by Rico Shane > 08/15/20 [id number]
== END ==
LOC: M RAD 11:02
PROVIDERS: ATTEND Physician Assistant
DX: R91.1 Solitary pulmonary nodule (principal)

== ENCOUNTER 2020-08-21 08:45 | Outpatient (RCR) | payer OTHER, MEDICAID | END 2020-08-24 | LOC: M PT 08:45 | PROVIDERS: ATTEND Orthopaedic Surgery | DX: M25.561 Pain in right knee (principal); M25.562 Pain in left knee ==

== ENCOUNTER → 2020-08-25 | Outpatient (CLI) | payer OTHER, MEDICAID ==
[~2020-08-25] MED LIST changes: +PROAAER10 INH; +TESS100C PO
== END ==
LOC: M PAIN 11:15
PROVIDERS: ATTEND Nurse Practitioner Family
DX: M79.18 Myalgia, other site (principal); E78.5 Hyperlipidemia, unspecified; E11.319 Type 2 diabetes mellitus with unspecified diabetic retinopathy without macular edema; E11.22 Type 2 diabetes mellitus with diabetic chronic kidney disease; N18.30 Chronic kidney disease, stage 3 unspecified; I12.9 Hypertensive chronic kidney disease with stage 1 through stage 4 chronic kidney disease, or unspecified chronic kidney disease; G47.33 Obstructive sleep apnea (adult) (pediatric); J45.909 Unspecified asthma, uncomplicated; F31.9 Bipolar disorder, unspecified; Z87.891 Personal history of nicotine dependence; Z79.4 Long term (current) use of insulin; Z79.82 Long term (current) use of aspirin; Z79.899 Other long term (current) drug therapy

== ENCOUNTER 2020-08-26 04:42 | Emergency (ER) | payer OTHER, MEDICAID ==
[~2020-08-26] VITALS: Ht 152.4 cm; Wt 116.8 kg
[~2020-08-26 04:42] MED LIST changes: -PROAAER10 INH; -TESS100C PO
[2020-08-26 06:03] LABS: BASO % 0.2 % (0.0-1.0); EOS # 0.1 10^3/uL (0.0-0.5); EOS % 1.4 % (0.0-3.0); HEMATOCRIT 36.2 % (36.0-47.0); HEMOGLOBIN 11.4 g/dl (12.0-15.5); LYMPH # 1.1 10^3/uL (1.5-5.0); LYMPH % 10.3 % (24.0-44.0); MEAN CORPUSCULAR HEMOGLOBIN 27.5 pg (27.0-33.0); MEAN CORPUSCULAR HGB CONC 31.5 g/dl (32.0-36.5); MEAN CORPUSCULAR VOLUME 87.2 fl (80.0-96.0); MONO # 0.6 10^3/uL (0.0-0.8); MONO % 6.2 % (2.0-8.0); NEUTROPHILS # 8.3 10^3/uL (1.5-8.5); NEUTROPHILS % 80.8 % (36.0-66.0); PLATELET COUNT, AUTOMATED 217 10^3/uL (150-450); RED BLOOD COUNT 4.15 10^6/uL (4.00-5.40); WHITE BLOOD COUNT 10.3 10^3/uL (4.0-10.0)
[2020-08-26 06:28] LABS: ALBUMIN 3.2 GM/DL (3.2-5.2); ALT/SGPT 24 U/L (12-78); BILIRUBIN,DIRECT 0.1 MG/DL (0.0-0.2); BILIRUBIN,TOTAL 0.3 MG/DL (0.2-1.0); BLOOD UREA NITROGEN 17 MG/DL (7-18); CALCIUM LEVEL 9.1 MG/DL (8.5-10.1); CARBON DIOXIDE LEVEL 30 MEQ/L (21-32); CHLORIDE LEVEL 103 MEQ/L (98-107); CK-MB VALUE MASS < 1.0 NG/ML (<3.6); CPK CREATINE PHOSPHOKINASE 41 U/L (26-192); GLOMERULAR FILTRATION RATE 54.7 (>51); GLUCOSE, FASTING 203 MG/DL (70-100); MB/CK RELATIVE INDEX 2.44 (< OR =4); NT-PRO BNP 476 PG/ML (<125); POTASSIUM SERUM 4.1 MEQ/L (3.5-5.1); SODIUM LEVEL 138 MEQ/L (136-145); TOTAL PROTEIN 7.1 GM/DL (6.4-8.2); TROPONIN I < 0.02 NG/ML (< 0.10)
[2020-08-26] MEDS: ALBUTEROL 90 MCG/ACT 8GM HFA INHALER INH SCH ×3 (07:00→08:16)
--- NOTE | 2020-08-26 07:51 | REPVR ---
PROCEDURE INFORMATION: Exam: XR Chest Exam date and time: 08/26/2020 5:57 AM Age: 55 years old Clinical indication: Cough and dyspnea; Additional info: Dyspnea/cough TECHNIQUE: Imaging protocol: XR of the chest. Views: 1 view. COMPARISON: CT Chest without contrast 08/15/2020 11:07 AM FINDINGS: Tubes, catheters and devices: A left-sided pacemaker is again present.The cardiomediastinal silhouette is fairly stable in appearance. Lungs: Unremarkable. No consolidation. Pleural spaces: Unremarkable. No pleural effusion. No pneumothorax. Heart/Mediastinum: Unremarkable. No cardiomegaly. Bones/joints: Degenerative changes again involve the spine. IMPRESSION: No evidence for acute pulmonary disease. Electronically signed by: Trey Joshi On 08/26/2020 07:51:37 AM
[2020-08-26] MEDS ORDERED: ISOVUE-370 76% 100ML VIAL As Ordered ONE (09:15)
--- NOTE | 2020-08-26 09:37 | REP ---
INDICATION: r/o PE COMPARISON: 03/16/2020 TECHNIQUE: Axial contrast enhanced images from the thoracic inlet to the upper abdomen using pulmonary embolus technique with multiplanar re-formations. 75 ml Isovue 370 intravenous contrast material administered without complication. This CT examination was performed using the following dose reduction techniques: Automated exposure control, adjustment of mA and/or kv according to the patient's size, and use of iterative reconstruction technique. FINDINGS: Examination is limited by motion artifact. No obvious pulmonary embolus is identified. Thoracic aorta is normal. Pacemaker noted without cardiomegaly or pericardial effusion. Moderate mediastinal and bilateral hilar adenopathy is appreciated. No focal consolidation or effusion identified. There is a small 4 mm perifissural density adjacent to the anterior aspect of the right major fissure (series 402; image 32) which remains stable compared to 03/16/2020. No further obvious suspicious nodule or mass lesion identified. IMPRESSION: No evidence for pulmonary embolus. Moderate mediastinal/hilar adenopathy of uncertain etiology. No significant pleuroparenchymal process appreciated. <Electronically signed by Shukri Burris > 08/26/20 0934
[2020-08-26 09:57] VITALS: O2SAT 98
--- NOTE | 2020-08-26 10:05 | REP ---
INDICATION: r/o dvt COMPARISON: None. TECHNIQUE: Farrell scale and color Doppler evaluation using linear high frequency transducer. FINDINGS: Ultrasound examination of the right lower extremity deep venous structures from the common femoral vein through the calf/ankle to include the peroneal, and tibial veins demonstrates normal compressibility flow and wave patterns in response to respiration and augmentation. There is no evidence for deep venous thrombosis. Ultrasound examination of the left lower extremity deep venous structures from the common femoral vein through the calf to include the proximal portion of the peroneal vein as well as the posterior tibial vein to the ankle demonstrate normal compressibility flow and wave patterns in response to respiration and augmentation. There is no evidence for deep venous thrombosis as visualized. IMPRESSION: No evidence for deep venous thrombosis. <Electronically signed by Shukri Burris > 08/26/20 1005
[2020-08-26] MEDS ORDERED: PROAAER10 INH (10:12)
[2020-08-26] MEDS ORDERED: TESS100C PO (10:12)
[2020-08-26 10:35] VITALS: BP 146/60
--- NOTE | 2020-08-26 10:48 | ED PDOC ---
Post-Departure Follow-Up dr lin and itz linda faxed formal report of cta chest for fu Yue Horner MD Aug 26, 2020 10:48
--- NOTE | 2020-08-26 20:49 | ECGEPIP ---
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
== END 2020-08-26 10:40 | disposition home or self-care (01) ==
LOC: M ED 04:42
DX: J45.901 Unspecified asthma with (acute) exacerbation (principal); J00 Acute nasopharyngitis [common cold]; A08.2 Adenoviral enteritis; N18.9 Chronic kidney disease, unspecified; I12.9 Hypertensive chronic kidney disease with stage 1 through stage 4 chronic kidney disease, or unspecified chronic kidney disease; E11.9 Type 2 diabetes mellitus without complications; E78.5 Hyperlipidemia, unspecified; F25.0 Schizoaffective disorder, bipolar type; M54.9 Dorsalgia, unspecified; G89.29 Other chronic pain; Z79.01 Long term (current) use of anticoagulants; Z79.899 Other long term (current) drug therapy; Z79.82 Long term (current) use of aspirin; Z88.8 Allergy status to other drugs, medicaments and biological substances; Z86.73 Personal history of transient ischemic attack (TIA), and cerebral infarction without residual deficits; Z87.891 Personal history of nicotine dependence; Z98.890 Other specified postprocedural states
CPT/HCPCS: 71045; 71275; 80048; 80076; 82550; 82553; 83880; 84443; 84484; 85025; 85379; 87798; 87880; 93005; 93041; 93970; 94760; 99285; Q9967

== ENCOUNTER → 2020-09-03 | Outpatient (REF) | payer OTHER, MEDICAID ==
[~2020-09-03] MED LIST changes: +OMEP40CA4 PO; -OMEP40CA97 PO; +PROAAER10 INH; +TESS100C PO
== END ==
LOC: M SFHCADAM 12:42
PROVIDERS: ATTEND Physician Assistant
DX: J02.0 Streptococcal pharyngitis (principal); F25.1 Schizoaffective disorder, depressive type; F43.10 Post-traumatic stress disorder, unspecified
CPT/HCPCS: 87070; 87077; 87205; 90834; G0463

== ENCOUNTER 2020-09-21 13:00 | Outpatient (RCR) | payer OTHER, MEDICAID | END 2020-09-23 | LOC: M PT 13:00 | PROVIDERS: ATTEND Orthopaedic Surgery | DX: M25.562 Pain in left knee (principal); M25.561 Pain in right knee ==

== ENCOUNTER → 2020-09-22 | Outpatient (CLI) | payer OTHER, MEDICAID ==
--- NOTE | 2020-09-24 02:30 | ECWPNPC ---
PATIENT NAME: PRUDENCIO SHAHID : 1965 GENDER: FEMALE VISIT DATE: 09/22/2020 DISCHARGE DATE: 09/22/20 1158 VISIT LOCKED DATE TIME: PHYSICIAN: YULISSA STAUFFER PHYSICIAN PAGER NO: ACTIVE RESOURCE: YULISSA STAUFFER REASON FOR APPOINTMENT 1. CONSIDER TRIGGER POINT INJECTIONS HISTORY OF PRESENT ILLNESS GENERAL: HERE FOR FOLLOW-UP OF CHRONIC LOW BACK PAIN. PAIN HAS INCREASED OVER THE PAST MONTH. PATIENT HAS BEEN CLEAR OF C. DIFFICILE. SHE WOULD LIKE TO PURSUE TRIGGER POINT INJECTIONS OF THE LOWER BACK WHICH HAVE BEEN HELPFUL IN THE PAST. -. FALL RISK SCREENING: SCREENING : NO FALLS REPORTED IN THE LAST YEAR. PAIN SCREENING: PATIENT HAS A COMPLAINT OF ACUTE OR CHRONIC PAIN :YES LOCATION OF PAIN:LOW BACK INTENSITY OF PAIN (SCALE OF 1 TO 10):8 WHAT DOES YOUR PAIN FEEL LIKE:STABBING, TENDER, SORE DURATION:CONTINOUS, CONSTANT, ALL DAY PAIN IS INCREASED BY:ACTIVITIES PAIN IS DECREASED BY:USE OF PAIN MEDICATIONS NURSING NOTE: -. PAIN CENTER INTAKE QUESTIONS: DO YOU HAVE A HISTORY OF MRSA? :NO DO YOU TAKE A BLOOD THINNERS? :YES PLAVIX DO YOU HAVE ANY BLEEDING DISORDERS? :NO ANY NEW NUMBNESS OR WEAKNESS IN YOUR LEGS OR ARMS? :NO ANY PACEMAKER,DEFIBRILLATOR, OR DORSAL COLUMN STIMULATOR? :YES PACEMAKER DO YOU HAVE ANY RASHES OR OPEN SORES? :NO ARE YOU ALLERGIC TO IV DYE? :NO ARE YOU DIABETIC? :YES ANY NEW PROBLEMS WITH YOUR MEDICATIONS? :NO HAVE YOU RECEIVED A VACCINE IN THE PAST 30 DAYS? :YES 2ND COVID 07/14/2020 DO YOU PLAN TO RECEIVE A VACCINE IN THE NEXT 21 DAYS? :NO DO YOU NEED ANY PRESCRIPTION? :YES ACETAMINOPHEN-CODEINE 300-30 MG DO YOU TAKE ANY IMMUNOSUPPRESSIVE MEDICATIONS? :NO IS THERE A CHANCE YOU COULD BE ? :NO ARE YOU BREAST FEEDING? :NO CURRENT MEDICATIONS TAKING DRISDOL 39962 UNIT CAPSULE 1 CAPSULE ORALLY WEEKLY TAKING ZONISAMIDE 25 MG CAPSULE 1 CAPSULES ORALLY BEFORE BEDTIME TAKING CALCIUM 600 + D 600-400 MG-UNIT TABLET 1 TABLET ORALLY ONCE A DAY TAKING MAY HAVE - - DIRECTED PATIENT WOULD BENEFIT FROM A PROJECT ENGINEER ANIMAL DUE TO PSHCYOLOGICAL AND CARDIAC ISSUES TAKING EFFEXOR XR 150 MG CAPSULE EXTENDED RELEASE 24 HOUR 1 CAPSULE WITH FOOD ORALLY ONCE A DAY TAKING PLAVIX 75 MG TABLET 1 TABLET ORALLY ONCE A DAY TAKING ABILIFY MAINTENA 400 MG PREFILLED SYRINGE INTRAMUSCULAR MONTHLY TAKING ZOFRAN 4 MG TABLET 1 TABLETS ORALLY TWICE A DAY NEEDED FOR NAUSEA/VOMITING TAKING ALBUTEROL SULFATE (2.5 MG/3ML) 0.083% NEBULIZATION SOLUTION 3 ML INHALATION QID PRN, NOTES: NONE RECENT TAKING PROAIR HFA 108 (90 BASE) MCG/ACT AEROSOL SOLUTION 2 PUFFS NEEDED INHALATION EVERY 6 HRS NEEDED, NOTES: NONE RECENT TAKING ATORVASTATIN CALCIUM 40 MG TABLET 1 TABLET ORALLY ONCE A DAY TAKING GABAPENTIN 100 MG CAPSULE 2 CAPSULES ORALLY BID TAKING CETIRIZINE HCL 10MG TABLET TAKE ONE TABLET BY MOUTH ONCE DAILY NEEDED TAKING ALIGN - CAPSULE DIRECTED ORALLY DAILY TAKING LIDOCAINE-PRILOCAINE 2.5-2.5 % CREAM DIRECTED TO LOW BACK EXTERNALLY TID PRN TAKING ACETAMINOPHEN-CODEINE 300-30 MG TABLET 1 TABLET NEEDED ORALLY EVERY 8 HRS MDD 3 TAKING VOLTAREN 1 % GEL DIRECTED EXTERNALLY TAKING HUMALOG 100 UNIT/ML SOLUTION SLIDING SCALE, IF BLOOD SUGAR IS 150 PT TAKES 14 UNITS, IF IT IS HIGHER THAN THAT 14 UNITS SUBCUTANEOUS SLIDING SCALE, MDD 24 UNITS, NOTES: 04/27/20 14UNITS 1730 TAKING LEVEMIR FLEXPEN 100 UNIT/ML SOLUTION 25 UNITS SUBCUTANEOUS TWICE A DAY TAKING VICTOZA 18 MG/3ML SOLUTION PEN-INJECTOR 1.8 ML SUBCUTANEOUS ONCE A DAY TAKING ACTOS 15 MG TABLET TAKE 1 TABLET EVERY DAY ORALLY TAKING ASPIR-81 81 MG TABLET DELAYED RELEASE 1 TABLET ORALLY ONCE A DAY TAKING AMLODIPINE BESYLATE 2.5 MG TABLET TAKE 1 TABLET EVERY DAY TAKING LASIX 80 MG TABLET 1 TABLET ORALLY ONCE A DAY TAKING METHENAMINE HIPPURATE 1 GM TABLET TAKE 1 TABLET TWICE DAILY TAKING ESTRADIOL 10 MCG TABLET 1 TABLET VAGINAL TWO TIMES A WEEK TAKING DIFICID 200 MG TABLET 1 TABLET ORALLY TWICE A DAY TAKING BACID 1 TABLET DIRECTED ORALLY BID TAKING FLONASE 50 MCG/ACT SUSPENSION 1 SPRAY IN EACH NOSTRIL NASALLY ONCE A DAY NEEDED, NOTES: 6 MONTHS TAKING FLUCONAZOLE 150 MG TABLET 1 TABLET ORALLY ONE X DOSE NOT-TAKING HYDROCHLOROTHIAZIDE 25 MG TABLET 1 TABLET IN THE MORNING ORALLY ONCE A DAY NOT-TAKING VANCOMYCIN HCL 125 MG CAPSULE 1 TAB QID X 1 WK, THEN 1 TAB BID X 1 WK, THEN 1 TAB DAILY X 1 WK, THEN 1 TAB QOD X 1 WK, THEN 1 TAB Q3 DAYS ORALLY DIRECTED NOT-TAKING FLUCONAZOLE 150 MG TABLET 1 TABLET ORALLY DAILY MEDICATION LIST REVIEWED AND RECONCILED WITH THE PATIENT PAST MEDICAL HISTORY HYPERLIPIDEMIA DIABETES MELLITUS - WITH NON-PROLIFERATIVE RETINOPATHY LEFT EYE PER CENTER FOR SIGHT 06/2013. 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 DIFFUSE DISC BULGES AT THE L1-2 AND L3-4 LEVELS WITH MINIMAL THECAL SAC. 2. MINIMAL CENTRAL CANAL STENOSIS AT THE L4-5 LEVEL SECONDARY TO DISC BULGE, - CHRONIC PAIN MANAGEMENT THROUGH [facility]) CKD STAGE 3 - FOLLOWS WITH NEPHROLOGY C. DIFF 10/2017 & 11/2017 & 02/2018, 04/2019 - S/P STOOL TRANSPLANT; STOOL TRANSPLANT 06/12 RECURRENT UTIS S/P PACER 01/2019 MRI BRAIN 01/2019 - TINY LACUNAR INFARCT - OLD ADAN - STARTING CPAP 08/2019 ONE FALL THIS YEAR 07/11/2020,NO MAJOR INJURIES, JUST HURT BOTH KNEE BUT MOSTLY ON THE LEFT.. KIDNEY DISEASE STAGE 3 ALLERGIES SEASONAL: NASAL CONGESTION - ALLERGY PEPTO BISMOL: THROAT SWELLS - ALLERGY METFORMIN HCL: CKD - METFORMIN STOPPED BY NEPHRO. 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 COLONOSCOPY EYE LIDS LIFTED COLONOSCOPY 12/07/2015 GALL BLADDER 09/2016 LEFT CATARACT REMOVED 07/2017 COLONOSCOPY AND STOOL TRANSPLANT 05/30/18 MASS REMOVED FROM LEFT EYE 06/18/18 CYSTOSCOPY 07/27/2018 CARDIAC PACEMEKER 01/2019 SOCIAL HISTORY GENERAL: TOBACCO USE ARE YOU A:FORMER SMOKER HOW LONG HAS IT BEEN SINCE YOU LAST SMOKED?> 10 YEARS SMOKING CESSATION INFORMATION GIVEN04/03/2020 LATEX QUESTIONNAIRE LATEX ALLERGY : HAVE YOU EVER DEVELOPED ANY TYPE OF REACTION AFTER HANDLING LATEX PRODUCTS SUCH RUBBER GLOVES, CONDOMS, DIAPHRAGMS, BALLOONS, SOCKS, OR UNDERWEAR?NO LATEX ALLERGY : HAVE YOU EVER DEVELOPED ANY TYPE OF REACTION DURING OR AFTER DENTAL APPOINTMENT, VAGINAL/RECTAL EXAMINATION, SURGICAL PROCEDURE, OR ANY OTHER EXPOSURE?NO LATEX RISK : HAVE YOU EVER HAD ANY DIFFICULTY BREATHING OR HIVES AFTER EATING OR HANDLING ANY FRUITS, OR VEGETABLES; SUCH KIWI, BANANAS, STONE FRUITS, OR CHESTNUTSNO LATEX RISK : DO YOU HAVE A PREVIOUS PERSONAL HISTORY OF MORE THAN NINE SURGERIES, SPINA BIFIDA, OR REPEATED CATHERIZATIONS? NO LATEX RISK : ARE YOU FREQUENTLY EXPOSED TO LATEX PRODUCTS IN YOUR OCCUPATION?NO DATE ASKED : 09/22/2020 ALCOHOL USE: NO. LUNG CANCER SCREENING SMOKING STATUS:FORMER SMOKER BMI CARE GOAL FOLLOW-UP ABOVE NORMAL BMI FOLLOW-UPDIETARY MANAGEMENT EDUCATION, GUIDANCE, AND COUNSELING ALCOHOL SCREENING DID YOU HAVE A DRINK CONTAINING ALCOHOL IN THE PAST YEAR?NO POINTS0 INTERPRETATIONNEGATIVE RECREATIONAL DRUG USE DRUG USE?NO CAFFEINE CAFFEINE USE?YES 1CUP COFFEE SEXUAL HX HAD SEX IN THE LAST 12 MONTHS (VAGINAL, ORAL, OR ANAL)?NO LMP:02/2016 HAVE YOU EVER HAD AN STD?NO HIV / HEP-C SCREENING HIV TEST OFFERED TO PATIENT:YES DATE OFFERED:06/30/2016 TEST ACCEPTED:NO REASON:PATIENT DECLINED BROCHURE PROVIDED TO PATIENTNO DENOMINATIONAL [id number] CAODAISM LANGUAGE LANGUAGES SPOKEN:TONGAN LEARNING BARRIERS / SPECIAL NEEDS CHANGE FROM LAST VISIT?NO BARRIERS TO LEARNING?NO HEARING IMPAIRED?NO VISION IMPAIRED?YES :CORRECTIVE LENSES COGNITIVELY IMPAIRED?NO READINESS TO LEARN?YES LEARNING PREFERENCES?NO LEARNING CAPABILITIES PRESENT?YES EMOTIONAL BARRIERS?YES COMMENTS PATIENT WOULD BENEFIT FROM A PROJECT ENGINEER ANIMAL DUE TO PSHCYOLOGICAL AND CARDIAC ISSUES. BIPOLAR DISORDER, DEPRESSION SPECIAL DEVICES?YES :WALKER ONLY WHEN NEEDED MACHINE DESIGN ENGINEER NEEDED?NO DOMESTIC VIOLENCE DO YOU FEEL SAFE IN YOUR ENVIRONMENT?YES OCCUPATION: RETIRED. DIET: NO CONCENTRATED SWEETS., CARBOHYDRATE CONTROLLED, LOW FAT, LOW CHOLESTEROL. EXERCISE: WALKS 1 MILE WEATHER PERMITTING. MARITAL STATUS: .. OTHERS AT HOME: CHILD DAUGHTER. - PFS REFERRAL NEEDED?NO CLERGY REFERRAL NEEDED?NO PUBLIC HEALTH REFERRAL NEEDED?NO WAS THE PROVIDER NOTIFIED OF ANY PERTINENT INFO?YES N/A HAS THE PATIENT BEEN EDUCATED REGARDING HIS/HER PLAN OF CARE?YES HAS THE PATIENT BEEN EDUCATED REGARDING PAIN, THE RISK FOR PAIN, THE IMPORTANCE OF EFFECTIVE PAIN MANAGEMENT, AND THE PAIN ASSESSMENT PROCESS?YES ADVANCE DIRECTIVE ADVANCE DIRECTIVE DISCUSSED WITH PATIENT:YES PT HAS HCP [facility] ROBERTS [phone] HOSPITALIZATION/MAJOR DIAGNOSTIC PROCEDURE 3 DAYS FOR TIA 06/2013 SURGERIES PACER ACTING UP, OBSERVED REVIEW OF SYSTEMS CONSTITUTIONAL: ANY RECENT FEVER NO . CHILLS NO . WEIGHT CHANGE OF UNKNOWN REASONS NO . GASTROENTEROLOGY: NEW UNEXPLAINABLE CHANGES IN BOWEL CONTROL CURRENTLY ON ANTIBIOTIC FOR C. DIFFICILE. REPORTING NO MORE DIARRHEA. . CONSTIPATION NO . GENITOURINARY: ANY NEW CHANGE IN BLADDER CONTROL? NO . NEUROLOGY: NEW ONSET DIZZINESS OR NEUROLOGICAL CHANGES NOT MENTIONED NO . NEW NUMBNESS OR PAIN PATTERNS NOT MENTIONED AND PERTINENT TO TODAY'S VISIT NO . CARDIOLOGY: NEW CHEST PRESSURE NO . PATIENT DENIES NO . RESPIRATORY: UNEXPLAINABLE COUGH NO . NEW SHORTNESS OF BREATH NO . VITAL SIGNS WT 251.8 LBS, HT 64.25 IN, BMI 42.88 INDEX, BP 136/70 MM HG, HR 87 /MIN, RR 18 /MIN, TEMP 96.6 F, OXYGEN SAT % 96%, BLOOD GLUCOSE LEVEL 130 THIS AM, SAFE IN ENV? (Y/N) YES, NA INITIALS SC 11:05Leonor.VI MUNROE. EXAMINATION GENERAL EXAMINATION: GENERALNO ACUTE DISTRESS, WELL NOURISHED AND HYDRATED. PSYCHAPPROPRIATE MOOD AND AFFECT . NECK:NO LYMPHADENOPATHY, SUPPLE. LUNGS:CLEAR TO AUSCULTATION BILATERALLY, NO WHEEZES, RHONCHI, RALES. HEART:NO MURMURS, REGULAR RATE AND RHYTHM. MUSCULOSKELETAL: TRIGGER POINTS: NOTED OVER BILATERAL LOW BACK RIGHT GREATER THAN LEFT. PAIN IS AGGRAVATED IN THIS REGION WITH RANGE OF JOINT MOTION OF THE SPINE.. ASSESSMENTS MYALGIA, OTHER SITE - M79.18 (PRIMARY) TREATMENT MYALGIA, OTHER SITE REFILL ACETAMINOPHEN-CODEINE TABLET, 300-30 MG, 1 TABLET NEEDED, ORALLY, EVERY 8 HRS MDD 3, 30 DAYS, 30, REFILLS 0 NOTES: TRIGGER POINT INJECTIONS BILATERAL LOW BACK REVIEWED PRE PROCEDURE INFORMATION,PATIENT VERBALIZED UNDERSTANDING. ALSO PATIENT IS ON PLAVIX AND DOES NOT NEED TO HOLD MEDICATION FOR THIS PROCEDURE FRANCIS MUNROE. PROCEDURE CODES FA211 ESTABILISHED PATIENT [facility] CHARGE DISPOSITION & COMMUNICATION FOLLOW UP POSTPROCEDURE (REASON: TRIGGER POINT INJECTIONS BILATERAL LOW BACK) ELECTRONICALLY SIGNED BY GAY CEDEÑO ON 09/23/2020 AT 02:47 PM EDT DISCLAIMER : THIS IS A VISIT SUMMARY EXTRACTED FROM THE [employer] CHART. IT IS NOT A COPY OF THE [employer] PROGRESS NOTE. MARYLOU
== END ==
LOC: M PAIN 11:15
PROVIDERS: ATTEND Nurse Practitioner Family
DX: M79.18 Myalgia, other site (principal); E78.5 Hyperlipidemia, unspecified; E11.9 Type 2 diabetes mellitus without complications; I12.9 Hypertensive chronic kidney disease with stage 1 through stage 4 chronic kidney disease, or unspecified chronic kidney disease; G47.33 Obstructive sleep apnea (adult) (pediatric); M51.34 Other intervertebral disc degeneration, thoracic region; F31.9 Bipolar disorder, unspecified; J45.909 Unspecified asthma, uncomplicated; N18.30 Chronic kidney disease, stage 3 unspecified; A60.09 Herpesviral infection of other urogenital tract; Z95.0 Presence of cardiac pacemaker; Z87.891 Personal history of nicotine dependence; Z79.02 Long term (current) use of antithrombotics/antiplatelets; Z79.4 Long term (current) use of insulin; Z79.82 Long term (current) use of aspirin; Z79.899 Other long term (current) drug therapy; Z88.8 Allergy status to other drugs, medicaments and biological substances

== ENCOUNTER 2020-10-05 19:12 | Emergency (ER) | payer OTHER, MEDICAID ==
[~2020-10-05] VITALS: Ht 152.4 cm; Wt 113.2 kg
[2020-10-05 23:05] VITALS: BP 133/70
--- NOTE | 2020-10-05 23:25 | REPVR ---
PROCEDURE INFORMATION: Exam: XR Right Foot Exam date and time: 10/05/2020 9:41 PM Age: 55 years old Clinical indication: Pain; Foot; Right; Additional info: Injury with pain and bruising TECHNIQUE: Imaging protocol: XR Right foot. Views: 3 or more views. COMPARISON: CR Foot, complete 03/31/2018 12:44 PM FINDINGS: Bones/joints: Moderate-sized plantar calcaneal spurs identified. There is osteophyte formation of the navicular. There may be a small cortical chip type fracture at the base of the proximal phalanx 5th digit. Small exostosis of the distal fibula. Soft tissues: There is soft tissue swelling throughout the foot and ankle. IMPRESSION: 1. Diffuse soft tissue swelling of the right foot and ankle 2. There may be a small cortical chip type fracture at the base of the proximal phalanx 5th digit. Electronically signed by: Mahendra Moreno On 10/05/2020 23:25:01 PM
== END 2020-10-05 23:23 | disposition home or self-care (01) ==
LOC: M ED 19:12
DX: S90.211A Contusion of right great toe with damage to nail, initial encounter (principal); W20.8XXA Other cause of strike by thrown, projected or falling object, initial encounter; Y92.9 Unspecified place or not applicable; Y93.9 Activity, unspecified; Y99.9 Unspecified external cause status; Z79.4 Long term (current) use of insulin; Z79.51 Long term (current) use of inhaled steroids; Z79.899 Other long term (current) drug therapy; Z88.8 Allergy status to other drugs, medicaments and biological substances

== ENCOUNTER 2020-10-15 12:58 | Outpatient (RCR) | payer OTHER, MEDICAID | END 2020-10-24 | LOC: M PT 12:58 | PROVIDERS: ATTEND Orthopaedic Surgery | DX: M25.562 Pain in left knee (principal); M25.561 Pain in right knee ==

== ENCOUNTER → 2020-10-15 | Outpatient (CLI) | payer OTHER, MEDICAID ==
--- NOTE | 2020-10-15 10:37 | REP ---
INDICATION: PAIN RIGHT TOES. COMPARISON: Right foot 10/05/2020. TECHNIQUE: Four views FINDINGS: The 1st MTP joint shows minor degenerative spurring. IP joint of the great toe also with degenerative change. There is minor degenerative changes at the IP joints as well the DIP joint of the 5th toe is fused as an anatomic variation. The question of a small of chip avulsion the base of the proximal phalanx of the 5th toe previous study is not confirmed is a definite displaced fracture. I do not see erosion, fracture, avulsion or abnormal soft tissue calcification. There is soft tissue swelling over the distal forefoot and diffusely into the toes. No subcutaneous emphysema. No foreign body vascular calcifications of midfoot artery noted. IMPRESSION: 1. Some degenerative changes of the toes with diffuse soft tissue swelling distal forefoot and into the toes. Fracture, avulsion, erosion, foreign body, subcutaneous emphysema or other acute finding. I cannot confirm a chip fracture at the base of the proximal phalanx of the 5th toe, appearance is the suggestive of some degenerative spurring. Correlate with the clinical examination for a possible nondisplaced fracture. <Electronically signed by Cedric Escobar > 10/15/20 1039
--- NOTE | 2020-10-15 10:44 | REP ---
INDICATION: PAIN LEFT KNEE. COMPARISON: 07/13/2020 TECHNIQUE: Bilateral standing AP, sunrise and weight-bearing lateral per request FINDINGS: There is marked narrowing of the medial compartment of the left knee on this AP weight-bearing view compared to the right tricompartment osteoarthritic changes are seen. Marginal osteophytes in the medial and lateral joint lines on the right side as well. Patellofemoral spurring without suprapatellar joint effusion, fracture or patellar subluxation/dislocation. No loose bodies or osteochondral defect identified. IMPRESSION: 1. Tricompartment osteoarthritis left knee on weight-bearing view. There is significant narrowing with [id number] appearance indicating severe chondromalacia of the medial joint compartment. Mild narrowing of the patellofemoral joint and sparing of the lateral compartment articular cartilage. No loose body or fracture. No suprapatellar effusion. <Electronically signed by Cedric Escobar > 10/15/20 [id number]
== END ==
LOC: M SOG 08:49
PROVIDERS: ATTEND Orthopaedic Surgery Adult Reconstructive Orthopaedic Surgery
DX: M25.562 Pain in left knee (principal); M79.674 Pain in right toe(s)

== ENCOUNTER → 2020-10-16 | Outpatient (CLI) | payer OTHER, MEDICAID | LOC: M LABSMTC 12:02 | PROVIDERS: ATTEND Anesthesiology | DX: Z20.822 Contact with and (suspected) exposure to COVID-19 (principal) ==

== ENCOUNTER → 2020-10-21 | Outpatient (CLI) | payer OTHER, MEDICAID ==
[~2020-10-21] MED LIST changes: +BUPIVACAINE HCL 0.25% 10ML VIAL As Ordered ONE; +BUPIVACAINE HCL 0.25% 30ML VIAL As Ordered ONE; +TRIAMCINOLONE ACETONIDE SUSP 40 MG/ML VIAL (J3301) As Ordered ONE; +diazePAM 5MG TABLET As Ordered ONE; +oxyCODONE 5MG TAB As Ordered ONE
--- NOTE | 2020-10-23 01:11 | ECWPNPC ---
PATIENT NAME: PRUDENCIO SHAHID : 1965 GENDER: FEMALE VISIT DATE: 10/21/2020 DISCHARGE DATE: 10/21/20953 VISIT LOCKED DATE TIME: PHYSICIAN: PANDA SO MD PHYSICIAN PAGER NO: ACTIVE RESOURCE: PANDA SO MD REASON FOR APPOINTMENT 1. TRIGGER POINT INJECTIONS BILATERAL LOW BACK HISTORY OF PRESENT ILLNESS GENERAL: -. -. FALL RISK SCREENING: SCREENING :PATIENT REPORTS FALL IN 04/2020, INJURING NECK, ER VISIT [facility].. PAIN SCREENING: PATIENT HAS A COMPLAINT OF ACUTE OR CHRONIC PAIN :YES LOCATION OF PAIN:LOW BACK, LEFT HIP, RIGHT HIP INTENSITY OF PAIN (SCALE OF 1 TO 10):8 4-9/10 WHAT DOES YOUR PAIN FEEL LIKE:STABBING, OTHER DULL DURATION:CONTINOUS, AWAKENS FROM SLEEP PAIN IS INCREASED BY:ACTIVITIES PAIN IS DECREASED BY:USE OF PAIN MEDICATIONS PLAN/GOALS/TREATMENT/INTERVENTION/FOLLOW UP:SEE PLAN NURSING NOTE: -. PAIN CENTER INTAKE QUESTIONS: DO YOU HAVE A HISTORY OF MRSA? :NO DO YOU TAKE A BLOOD THINNERS? :YES PLAVIX (10/14/20) DO YOU HAVE ANY BLEEDING DISORDERS? :NO ANY NEW NUMBNESS OR WEAKNESS IN YOUR LEGS OR ARMS? :NO ANY PACEMAKER,DEFIBRILLATOR, OR DORSAL COLUMN STIMULATOR? :YES PACEMAKER DO YOU HAVE ANY RASHES OR OPEN SORES? :NO ARE YOU ALLERGIC TO IV DYE? :NO ARE YOU DIABETIC? :YES FSBS:210 ANY NEW PROBLEMS WITH YOUR MEDICATIONS? :NO HAVE YOU RECEIVED A VACCINE IN THE PAST 30 DAYS? :NO DO YOU PLAN TO RECEIVE A VACCINE IN THE NEXT 21 DAYS? :NO DO YOU TAKE ANY IMMUNOSUPPRESSIVE MEDICATIONS? :NO ANY HISTORY OF SEIZURES? :NO ANY HISTORY OF CARDIAC ISSUES OR EVENTS? :NO DO YOU HAVE ANY KIDNEY OR LIVER DISEASE? :YES CKD STAGE III DO YOU HAVE SLEEP APNEA? :YES DO YOU WEAR A CPAP?YES PT STATES IT HASNT BEEN WORKING RIGHT , THIS NURSE ENCOURAGED HER TO CALL AND INFORM HER PRIMARY AND TO CALL THE MEDICAL SUPPLIED... ANY RECENT HEAD INJURY? :NO DO YOU HAVE ANY NEW INFECTIONS? :NO IS THERE A CHANCE YOU COULD BE ? :NO ARE YOU BREAST FEEDING? :NO WHEN DID YOU LAST EAT? : -----EARLY THIS AM AT 100 WHEN DID YOU LAST DRINK? : ----0600 THIS MORNING WHAT DID YOU LAST DRINK? : ----WATER NAME OF PERSON DRIVING YOU HOME? : [facility] ([employer]) DO YOU HAVE ANY OTHER QUESTIONS OR CONCERNS? : NO CURRENT MEDICATIONS TAKING DRISDOL 91310 UNIT CAPSULE 1 CAPSULE ORALLY WEEKLY TAKING ZONISAMIDE 25 MG CAPSULE 1 CAPSULES ORALLY BEFORE BEDTIME TAKING CALCIUM 600 + D 600-400 MG-UNIT TABLET 1 TABLET ORALLY ONCE A DAY TAKING MAY HAVE - - DIRECTED PATIENT WOULD BENEFIT FROM A PARTITION NOTCHER ANIMAL DUE TO PSHCYOLOGICAL AND CARDIAC ISSUES TAKING EFFEXOR XR 150 MG CAPSULE EXTENDED RELEASE 24 HOUR 1 CAPSULE WITH FOOD ORALLY ONCE A DAY TAKING PLAVIX 75 MG TABLET 1 TABLET ORALLY ONCE A DAY, NOTES: OCTOBER 14 2020 TAKING ABILIFY MAINTENA 400 MG PREFILLED SYRINGE INTRAMUSCULAR MONTHLY TAKING ZOFRAN 4 MG TABLET 1 TABLETS ORALLY TWICE A DAY NEEDED FOR NAUSEA/VOMITING TAKING ALBUTEROL SULFATE (2.5 MG/3ML) 0.083% NEBULIZATION SOLUTION 3 ML INHALATION QID PRN, NOTES: NONE RECENT TAKING PROAIR HFA 108 (90 BASE) MCG/ACT AEROSOL SOLUTION 2 PUFFS NEEDED INHALATION EVERY 6 HRS NEEDED, NOTES: NONE RECENT TAKING ATORVASTATIN CALCIUM 40 MG TABLET 1 TABLET ORALLY ONCE A DAY TAKING GABAPENTIN 100 MG CAPSULE 2 CAPSULES ORALLY BID TAKING CETIRIZINE HCL 10MG TABLET TAKE ONE TABLET BY MOUTH ONCE DAILY NEEDED TAKING ALIGN - CAPSULE DIRECTED ORALLY DAILY TAKING LIDOCAINE-PRILOCAINE 2.5-2.5 % CREAM DIRECTED TO LOW BACK EXTERNALLY TID PRN TAKING VOLTAREN 1 % GEL DIRECTED EXTERNALLY TAKING HUMALOG 100 UNIT/ML SOLUTION SLIDING SCALE, IF BLOOD SUGAR IS 150 PT TAKES 14 UNITS, IF IT IS HIGHER THAN THAT 14 UNITS SUBCUTANEOUS SLIDING SCALE, MDD 24 UNITS TAKING LEVEMIR FLEXPEN 100 UNIT/ML SOLUTION 25 UNITS SUBCUTANEOUS TWICE A DAY TAKING VICTOZA 18 MG/3ML SOLUTION PEN-INJECTOR 1.8 ML SUBCUTANEOUS ONCE A DAY TAKING ACTOS 15 MG TABLET TAKE 1 TABLET EVERY DAY ORALLY TAKING ASPIR-81 81 MG TABLET DELAYED RELEASE 1 TABLET ORALLY ONCE A DAY TAKING AMLODIPINE BESYLATE 2.5 MG TABLET TAKE 1 TABLET EVERY DAY TAKING LASIX 80 MG TABLET 1 TABLET ORALLY ONCE A DAY TAKING METHENAMINE HIPPURATE 1 GM TABLET TAKE 1 TABLET TWICE DAILY TAKING ESTRADIOL 10 MCG TABLET 1 TABLET VAGINAL TWO TIMES A WEEK TAKING DIFICID 200 MG TABLET 1 TABLET ORALLY TWICE A DAY TAKING BACID 1 TABLET DIRECTED ORALLY BID TAKING FLONASE 50 MCG/ACT SUSPENSION 1 SPRAY IN EACH NOSTRIL NASALLY ONCE A DAY NEEDED, NOTES: 6 MONTHS TAKING FLUCONAZOLE 150 MG TABLET 1 TABLET ORALLY DAILY TAKING ACETAMINOPHEN-CODEINE 300-30 MG TABLET 1 TABLET NEEDED ORALLY EVERY 8 HRS MDD 3 NOT-TAKING HYDROCHLOROTHIAZIDE 25 MG TABLET 1 TABLET IN THE MORNING ORALLY ONCE A DAY NOT-TAKING VANCOMYCIN HCL 125 MG CAPSULE 1 TAB QID X 1 WK, THEN 1 TAB BID X 1 WK, THEN 1 TAB DAILY X 1 WK, THEN 1 TAB QOD X 1 WK, THEN 1 TAB Q3 DAYS ORALLY DIRECTED NOT-TAKING FLUCONAZOLE 150 MG TABLET 1 TABLET ORALLY DAILY MEDICATION LIST REVIEWED AND RECONCILED WITH THE PATIENT PAST MEDICAL HISTORY HYPERLIPIDEMIA DIABETES MELLITUS - WITH NON-PROLIFERATIVE RETINOPATHY LEFT EYE PER CENTER FOR SIGHT 06/2013. 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 DIFFUSE DISC BULGES AT THE L1-2 AND L3-4 LEVELS WITH MINIMAL THECAL SAC. 2. MINIMAL CENTRAL CANAL STENOSIS AT THE L4-5 LEVEL SECONDARY TO DISC BULGE, - CHRONIC PAIN MANAGEMENT THROUGH DR. SO [facility]) CKD STAGE 3 - FOLLOWS WITH NEPHROLOGY C. DIFF 10/2017 & 11/2017 & 02/2018, 04/2019 - S/P STOOL TRANSPLANT; STOOL TRANSPLANT 06/12 RECURRENT UTIS S/P PACER 01/2019 MRI BRAIN 01/2019 - TINY LACUNAR INFARCT - OLD ADAN - STARTING CPAP 08/2019 ONE FALL THIS YEAR 07/11/2020,NO MAJOR INJURIES, JUST HURT BOTH KNEE BUT MOSTLY ON THE LEFT.. KIDNEY DISEASE STAGE 3 ALLERGIES SEASONAL: NASAL CONGESTION - ALLERGY PEPTO BISMOL: THROAT SWELLS - ALLERGY METFORMIN HCL: CKD - METFORMIN STOPPED BY NEPHRO. - CONTRAINDICATION SOCIAL HISTORY GENERAL: TOBACCO USE ARE YOU A:FORMER SMOKER HOW LONG HAS IT BEEN SINCE YOU LAST SMOKED?> 10 YEARS SMOKING CESSATION INFORMATION GIVEN04/03/2020 LATEX QUESTIONNAIRE LATEX ALLERGY : HAVE YOU EVER DEVELOPED ANY TYPE OF REACTION AFTER HANDLING LATEX PRODUCTS SUCH RUBBER GLOVES, CONDOMS, DIAPHRAGMS, BALLOONS, SOCKS, OR UNDERWEAR?NO LATEX ALLERGY : HAVE YOU EVER DEVELOPED ANY TYPE OF REACTION DURING OR AFTER DENTAL APPOINTMENT, VAGINAL/RECTAL EXAMINATION, SURGICAL PROCEDURE, OR ANY OTHER EXPOSURE?NO LATEX RISK : HAVE YOU EVER HAD ANY DIFFICULTY BREATHING OR HIVES AFTER EATING OR HANDLING ANY FRUITS, OR VEGETABLES; SUCH KIWI, BANANAS, STONE FRUITS, OR CHESTNUTSNO LATEX RISK : DO YOU HAVE A PREVIOUS PERSONAL HISTORY OF MORE THAN NINE SURGERIES, SPINA BIFIDA, OR REPEATED CATHERIZATIONS? NO LATEX RISK : ARE YOU FREQUENTLY EXPOSED TO LATEX PRODUCTS IN YOUR OCCUPATION?NO DATE ASKED : 10/15/2020 ALCOHOL USE: NO. LUNG CANCER SCREENING SMOKING STATUS:FORMER SMOKER BMI CARE GOAL FOLLOW-UP ABOVE NORMAL BMI FOLLOW-UPDIETARY MANAGEMENT EDUCATION, GUIDANCE, AND COUNSELING ALCOHOL SCREENING DID YOU HAVE A DRINK CONTAINING ALCOHOL IN THE PAST YEAR?NO POINTS0 INTERPRETATIONNEGATIVE RECREATIONAL DRUG USE DRUG USE?NO CAFFEINE CAFFEINE USE?YES 1CUP COFFEE SEXUAL HX HAD SEX IN THE LAST 12 MONTHS (VAGINAL, ORAL, OR ANAL)?NO LMP:02/2016 HAVE YOU EVER HAD AN STD?NO HIV / HEP-C SCREENING HIV TEST OFFERED TO PATIENT:YES DATE OFFERED:06/30/2016 TEST ACCEPTED:NO REASON:PATIENT DECLINED BROCHURE PROVIDED TO PATIENTNO RESTORATION [id number] YAZIDISM LANGUAGE LANGUAGES SPOKEN:ISRAELI LEARNING BARRIERS / SPECIAL NEEDS CHANGE FROM LAST VISIT?NO BARRIERS TO LEARNING?NO HEARING IMPAIRED?NO VISION IMPAIRED?YES COGNITIVELY IMPAIRED?NO :CORRECTIVE LENSES READINESS TO LEARN?YES LEARNING PREFERENCES?NO LEARNING CAPABILITIES PRESENT?YES EMOTIONAL BARRIERS?YES COMMENTS PATIENT WOULD BENEFIT FROM A PARTITION NOTCHER ANIMAL DUE TO PSHCYOLOGICAL AND CARDIAC ISSUES. BIPOLAR DISORDER, DEPRESSION SPECIAL DEVICES?YES :WALKER ONLY WHEN NEEDED INTELLIGENCE INTERN NEEDED?NO DOMESTIC VIOLENCE DO YOU FEEL SAFE IN YOUR ENVIRONMENT?YES OCCUPATION: RETIRED. DIET: NO CONCENTRATED SWEETS., CARBOHYDRATE CONTROLLED, LOW FAT, LOW CHOLESTEROL. EXERCISE: WALKS 1 MILE WEATHER PERMITTING. MARITAL STATUS: .. OTHERS AT HOME: CHILD DAUGHTER. - PFS REFERRAL NEEDED?NO CLERGY REFERRAL NEEDED?NO PUBLIC HEALTH REFERRAL NEEDED?NO WAS THE PROVIDER NOTIFIED OF ANY PERTINENT INFO?YES N/A HAS THE PATIENT BEEN EDUCATED REGARDING HIS/HER PLAN OF CARE?YES HAS THE PATIENT BEEN EDUCATED REGARDING PAIN, THE RISK FOR PAIN, THE IMPORTANCE OF EFFECTIVE PAIN MANAGEMENT, AND THE PAIN ASSESSMENT PROCESS?YES ADVANCE DIRECTIVE ADVANCE DIRECTIVE DISCUSSED WITH PATIENT:YES PT HAS HCP USMAN [id number] VITAL SIGNS WT 247.6 LBS, HT 64.25 IN, BMI 42.17 INDEX, BP 169/89 MM HG, HR 78 /MIN, RR 18 /MIN, TEMP 96.7 F, OXYGEN SAT % 98%, BLOOD GLUCOSE LEVEL 210, SAFE IN ENV? (Y/N) YES, NA INITIALS AW 0828, REVIEWED BY: KG. EXAMINATION GENERAL: THE PATIENT IS ALERT, ORIENTED TIMES THREE AND COOPERATIVE. LUNGS ARE CLEAR TO AUSCULTATION. HEART SHOWS REGULAR RHYTHM, NO MURMURS AND NO GALLOPS. ASSESSMENTS MYALGIA, OTHER SITE - M79.18 (PRIMARY) TREATMENT MYALGIA, OTHER SITE COMPLETION OF PROCEDURAL VISIT WHEN MEETS CRITERIABENITO DIAZ 10/21/2020 9:49:27 AM > CRITERIA MET MEDICATION: PAIN VALIUM TAB 5MG ORALLY (DIAZEPAM)CAROLINA VALERO 10/21/2020 8:42:01 AM > VERIFIED. BENITO DIAZ 10/21/2020 8:47:18 AM > GIVEN MEDICATION: PAIN OXYCODONE HCL TAB 5MG ORALLY CAROLINA VALERO 10/21/2020 8:42:20 AM > VERIFIED. BENITO DIAZ 10/21/2020 8:47:59 AM > GIVEN OTHERS NOTES: 10/15/20 PAT KERI. Italia SCHAFFER, CYTOLOGY LABORATORY MANAGER. PROCEDURES PAIN NURSING RECORD PROCEDURE IN ROOM 0835, PHYSICIAN IN ROOM 0921, START 0926, FINISH 0931, PHYSICIAN OUT OF ROOM 0932, OUT OF ROOM 51562, ECG N/A, PATIENT SHIELDED N/A, SAFETY STRAP N/A, PREP ALCOHOL DR. SO, DRESSING TEGADERM Je DIAZ RN LOC: 1. ALERT, ORIENTED BENITO DIAZ 10/21/2020 9:14:17 AM > RESP: 1. REGULAR, NO DYSPNEA BENITO DIAZ 10/21/2020 9:14:22 AM > COLOR: 1. PINK BENITO DIAZ 10/21/2020 9:14:26 AM > SKIN: 1. WARM, DRY BENITO DIAZ 10/21/2020 9:14:31 AM > POSITION: 5. SITTING BENITO DIAZ 10/21/2020 9:14:38 AM > VITALS: 0900 168/68 77 96% ON RA AND 18 RESPIRATION NOTES Je DIAZ RN 5 MG VALIUM AND 5 MG OXYCODONE GIVEN PT DID RESPOND WITH SOME DROWSINESS...EASILY AROUSED COMPLETION OF PROCEDURE APPOINTMENT: POST PAIN 0, DRESSING SITE DRY AND INTACT, IV N/A, GAIT STEADY, TEACHING COMPLETED, PATIENT ACKNOWLEDGES UNDERSTANDING YES, PROCEDURE APPOINTMENT COMPLETED AT 0945 PN TRIGGER POINT INJECTION WITH STEROIDS PRE PROCEDURE DIAGNOSIS 1. MYALGIA 2. PAIN AT BILATERAL LOW BACK AREA POST PROCEDURE DIAGNOSIS 1. MYALGIA 2. PAIN AT BILATERAL LOW BACK AREA PROCEDURE TRIGGER POINT INJECTION AT BILATERAL LOW BACK AREA SURGEON DR. PANDA SO FOOD ANALYST NONE ANESTHESIA LOCAL PRE PROCEDURE NOTE THE PATIENT HAS A HISTORY OF CHRONIC PAIN AT THE RIGHT AND LEFT LOW BACK AREA. I EVALUATED THE PATIENT AND REVIEWED THE CHART. THERE IS EVIDENCE OF BANDS OF TISSUE WITH RESTRICTION OF MOVEMENT AND PRESENCE OF TRIGGER POINT AT THE RIGHT AND LEFT LOW BACK AREA. I WENT OVER THE RISKS, ALTERNATIVES, AND BENEFITS ASSOCIATED WITH THIS PROCEDURE. THE PATIENT WOULD LIKE TO PROCEED AND GIVE CONSENT TO PERFORMED THE PROCEDURE. THE PATIENT DENIES UNEXPLAINABLE WEIGHT LOSS, FEVER, CHILLS, OR NEW CHANGES IN URINARY OR BOWEL CONTROL. THE PATIENT IS COVID-19 NEGATIVE DESCRIPTION OF PROCEDURE THE PATIENT WAS BROUGHT TO THE PROCEDURE ROOM AND PLACED IN THE SITTING POSITION. THE AREA WAS CLEANED WITH ALCOHOL. THE PROCEDURE WAS DONE USING ASEPTIC STERILE TECHNIQUE. A TIMEOUT WAS PERFORMED WHERE THE CONSENTED SITE WAS VERIFIED WITH EVERYONE IN THE ROOM. USING A 25-GAUGE NEEDLE, TRIGGER POINTS WERE INJECTED AT THE RIGHT AND LEFT LOW BACK AREA WITH A TOTAL OF 40 ML OF BUPIVACAINE 0.25% AND KENALOG 40 MG. THE MEDICATIONS WERE VERIFIED WITH THE NURSE. THERE WAS NO EVIDENCE OF BLOOD OR PARESTHESIA DURING THE PROCEDURE. THE PATIENT WAS SENT TO THE RECOVERY ROOM. THE PATIENT WAS MOVING THE EXTREMITIES AND DOING WELL. THERE WERE NO COMPLICATIONS DURING THE PROCEDURE. ESTIMATED BLOOD LOSS WAS LESS THAN 5 ML POST PROCEDURE NOTE THE PROCEDURE DONE WAS DISCUSSED WITH THE PATIENT. THE PATIENT WILL BE SEEN IN A FOLLOW UP IN THE NEXT FEW WEEKS. I AM LOOKING FOR LONG LASTING PAIN RELIEF FOR THE PATIENT WITH THIS INTERVENTION. INSTRUCTIONS WERE GIVEN, QUESTIONS WERE ANSWERED, AND THE PATIENT EXPRESSED UNDERSTANDING AND AGREES WITH THE PLAN. I, ROBERTO OLIVIA, DOCUMENTED THE ABOVE INFORMATION ACTING A SCRIBE FOR DR. SO. I HAVE REVIEWED THE ABOVE DOCUMENT, WRITTEN BY ROBERTO OLIVIA, AIR SEALING TECHNICIAN, AND I VERIFY THAT IT IS ACCURATE PROCEDURE CODES 51362 INJ TRIGGER POINT /2 MUSCL DISPOSITION & COMMUNICATION FOLLOW UP FOLLOW UP WITH JUNK REMOVAL SPECIALIST (REASON: POST TRIGGER POINT INJECTION BILATERAL LOW BACK) ELECTRONICALLY SIGNED BY PANDA SO MD, MD ON 10/22/2020 AT 12:09 PM EDT DISCLAIMER : THIS IS A VISIT SUMMARY EXTRACTED FROM THE [facility] CHART. IT IS NOT A COPY OF THE [facility] PROGRESS NOTE. MARYLOU
== END ==
LOC: M PAIN 08:30
PROVIDERS: ATTEND Anesthesiology
DX: M79.18 Myalgia, other site (principal); E78.5 Hyperlipidemia, unspecified; E11.3292 Type 2 diabetes mellitus with mild nonproliferative diabetic retinopathy without macular edema, left eye; I12.9 Hypertensive chronic kidney disease with stage 1 through stage 4 chronic kidney disease, or unspecified chronic kidney disease; J45.909 Unspecified asthma, uncomplicated; A60.09 Herpesviral infection of other urogenital tract; F31.9 Bipolar disorder, unspecified; N18.30 Chronic kidney disease, stage 3 unspecified; G47.33 Obstructive sleep apnea (adult) (pediatric); Z87.891 Personal history of nicotine dependence; Z88.8 Allergy status to other drugs, medicaments and biological substances; Z79.4 Long term (current) use of insulin; Z79.899 Other long term (current) drug therapy; Z79.82 Long term (current) use of aspirin; Z79.02 Long term (current) use of antithrombotics/antiplatelets
CPT/HCPCS: 20552; J3301

== ENCOUNTER → 2020-10-22 | Outpatient (REF) | payer OTHER, MEDICAID ==
[~2020-10-22] MED LIST changes: -BUPIVACAINE HCL 0.25% 10ML VIAL As Ordered ONE; -BUPIVACAINE HCL 0.25% 30ML VIAL As Ordered ONE; -TRIAMCINOLONE ACETONIDE SUSP 40 MG/ML VIAL (J3301) As Ordered ONE; -diazePAM 5MG TABLET As Ordered ONE; -oxyCODONE 5MG TAB As Ordered ONE
== END ==
LOC: M LAB REF 17:17
PROVIDERS: ATTEND Internal Medicine Nephrology
DX: N18.31 Chronic kidney disease, stage 3a (principal)

== ENCOUNTER → 2020-11-06 | Outpatient (CLI) | payer OTHER, MEDICAID | LOC: M PAIN 11:15 | PROVIDERS: ATTEND Anesthesiology | DX: G89.29 Other chronic pain (principal); M79.10 Myalgia, unspecified site; E78.5 Hyperlipidemia, unspecified; E11.3292 Type 2 diabetes mellitus with mild nonproliferative diabetic retinopathy without macular edema, left eye; E11.22 Type 2 diabetes mellitus with diabetic chronic kidney disease; F31.9 Bipolar disorder, unspecified; N18.30 Chronic kidney disease, stage 3 unspecified; I12.9 Hypertensive chronic kidney disease with stage 1 through stage 4 chronic kidney disease, or unspecified chronic kidney disease; J45.909 Unspecified asthma, uncomplicated; M51.34 Other intervertebral disc degeneration, thoracic region; M51.26 Other intervertebral disc displacement, lumbar region; G47.33 Obstructive sleep apnea (adult) (pediatric); Z87.891 Personal history of nicotine dependence; Z79.02 Long term (current) use of antithrombotics/antiplatelets; Z79.891 Long term (current) use of opiate analgesic; Z79.82 Long term (current) use of aspirin; Z79.4 Long term (current) use of insulin; Z79.899 Other long term (current) drug therapy; Z88.8 Allergy status to other drugs, medicaments and biological substances ==

== ENCOUNTER 2020-11-12 14:17 | Outpatient (RCR) | payer OTHER, MEDICAID ==
[~2020-11-12 14:17] MED LIST changes: -FENO48TA7; -FENO48TA7 PO; +FENO48TA8; +FENO48TA8 PO; -LEVO500T3; +LEVO500T4; -MAGN400T3 PO; +MAGN400T33 PO; +POTA-149 PO; -POTA10TA16 PO
== END 2020-11-24 ==
LOC: M PT 14:17
PROVIDERS: ATTEND Orthopaedic Surgery
DX: M25.562 Pain in left knee (principal); M25.561 Pain in right knee

== ENCOUNTER 2020-12-05 22:30 | Emergency (ER) | payer OTHER, MEDICAID ==
[~2020-12-05] VITALS: Ht 152.4 cm; Wt 108.6 kg
[~2020-12-05 22:30] MED LIST changes: +FENO48TA7; +FENO48TA7 PO; -FENO48TA8; -FENO48TA8 PO; +LEVO500T3; -LEVO500T4; +MAGN400T3 PO; -MAGN400T33 PO; -POTA-149 PO; +POTA10TA16 PO
[2020-12-05 23:35] LABS: BASO % 0.3 % (0.0-1.0); EOS # 0.1 10^3/uL (0.0-0.5); EOS % 1.9 % (0.0-3.0); HEMATOCRIT 37.1 % (36.0-47.0); HEMOGLOBIN 11.7 g/dl (12.0-15.5); LYMPH # 1.2 10^3/uL (1.5-5.0); LYMPH % 19.8 % (24.0-44.0); MEAN CORPUSCULAR HGB CONC 31.5 g/dl (32.0-36.5); MEAN CORPUSCULAR VOLUME 85.5 fl (80.0-96.0); MONO # 0.5 10^3/uL (0.0-0.8); MONO % 7.7 % (2.0-8.0); NEUTROPHILS # 4.3 10^3/uL (1.5-8.5); NEUTROPHILS % 69.2 % (36.0-66.0); PLATELET COUNT, AUTOMATED 190 10^3/uL (150-450); RED BLOOD COUNT 4.34 10^6/uL (4.00-5.40); WHITE BLOOD COUNT 6.2 10^3/uL (4.0-10.0)
[2020-12-06 00:12] LABS: ALBUMIN 2.9 GM/DL (3.2-5.2); ALT/SGPT 26 U/L (12-78); BILIRUBIN,DIRECT < 0.1 MG/DL (0.0-0.2); BILIRUBIN,TOTAL 0.2 MG/DL (0.2-1.0); BLOOD UREA NITROGEN 24 MG/DL (7-18); CALCIUM LEVEL 8.3 MG/DL (8.5-10.1); CARBON DIOXIDE LEVEL 27 MEQ/L (21-32); CHLORIDE LEVEL 106 MEQ/L (98-107); CK-MB VALUE MASS < 1.0 NG/ML (<3.6); CPK CREATINE PHOSPHOKINASE 47 U/L (26-192); CREATININE FOR GFR 1.14 MG/DL (0.55-1.30); FREE T4 1.11 NG/DL (0.76-1.46); GLOMERULAR FILTRATION RATE 52.5 (>51); GLUCOSE, FASTING 143 MG/DL (70-100); LIPASE 211 U/L (73-393); MB/CK RELATIVE INDEX 2.13 (< OR =4); NT-PRO BNP 70 PG/ML (<125); POTASSIUM SERUM 3.9 MEQ/L (3.5-5.1); SODIUM LEVEL 140 MEQ/L (136-145); TOTAL PROTEIN 6.9 GM/DL (6.4-8.2); TROPONIN I < 0.02 NG/ML (< 0.10)
--- NOTE | 2020-12-06 00:44 | REPVR ---
PROCEDURE INFORMATION: Exam: XR Chest Exam date and time: 12/05/2020 11:06 PM Age: 55 years old Clinical indication: Other: Fever cough TECHNIQUE: Imaging protocol: XR of the chest. Views: 1 view. COMPARISON: CR PORTABLE CHEST X-RAY 08/26/2020 5:51 AM FINDINGS: Tubes, catheters and devices: A pacemaker from the left is again noted. Lungs: There are no interval infiltrates. Pleural spaces: Unremarkable. No pleural effusion. No pneumothorax. Heart/Mediastinum: The heart and mediastinum are unchanged. Bones/joints: Unremarkable. Soft tissues: There are generous overlying soft tissues. IMPRESSION: Negative chest without change from 08/26/2020. Electronically signed by: Lazaro Gamboa On 12/06/2020 00:43:55 AM
[2020-12-06] MEDS ORDERED: ISOVUE-370 76% 100ML VIAL As Ordered ONE (00:48)
--- NOTE | 2020-12-06 02:08 | REPVR ---
PROCEDURE INFORMATION: Exam: CTA Chest With Contrast Exam date and time: 12/06/2020 1:33 AM Age: 55 years old Clinical indication: Shortness of breath; Patient HX: Covid +; Additional info: SOB, ddimer TECHNIQUE: Imaging protocol: Computed tomographic angiography of the chest with contrast. 3D rendering (Not supervised by radiologist): MIP and/or 3D reconstructed images were created by the technologist. Radiation optimization: All CT scans at this facility use at least one of these dose optimization techniques: automated exposure control; mA and/or kV adjustment per patient size (includes targeted exams where dose is matched to clinical indication); or iterative reconstruction. Contrast material: ISOVUE 370; Contrast volume: 75 ml; Contrast route: INTRAVENOUS (IV); COMPARISON: CT ANGIO CHEST 08/26/2020 9:20 AM FINDINGS: Tubes, catheters and devices: Pacemaker in position from the left. Pulmonary arteries: The main pulmonary artery measures 20 mm. No pulmonary embolism is identified. Aorta: The ascending thoracic aorta measures 32 mm. Lungs: Scattered bilateral ground-glass pulmonary infiltrates with slight interstitial coarsening in the bases. Pleural spaces: Unremarkable. No pneumothorax. No pleural effusion. Heart: Unremarkable. No cardiomegaly. No pericardial effusion. Lymph nodes: Borderline bilateral hilar nodes which are nonspecific but may be reactive. Gallbladder and bile ducts: Status post cholecystectomy. Bones/joints: Slightly decreased height of T8-T11 which appear to be chronic. Soft tissues: Unremarkable. IMPRESSION: 1. Scattered bilateral ground-glass pulmonary infiltrates with slight interstitial coarsening in the bases consistent with pneumonia which is new since 08/26/2020. 2. Borderline bilateral hilar nodes which are slightly increased and may be reactive. 3. Pacemaker in position from the left. 4. Otherwise negative CTA chest. No pulmonary embolism is identified. Electronically signed by: Lazaro Gamboa On 12/06/2020 02:08:19 AM
[2020-12-06 02:46] VITALS: BP 188/96
--- NOTE | 2020-12-06 20:04 | ECGEPIP ---
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
--- NOTE | 2020-12-07 13:58 | ED PDOC ---
Post-Departure Follow-Up radiology report faxed to [facility] Candy Bearden MD Dec 07, 2020 13:58
== END 2020-12-06 04:06 | disposition home or self-care (01) ==
LOC: M ED 22:30
DX: U07.1 COVID-19 (principal); R78.5 Finding of other psychotropic drug in blood; E11.9 Type 2 diabetes mellitus without complications; F31.9 Bipolar disorder, unspecified; N18.9 Chronic kidney disease, unspecified; G47.33 Obstructive sleep apnea (adult) (pediatric); Z87.891 Personal history of nicotine dependence; Z95.0 Presence of cardiac pacemaker
CPT/HCPCS: 36415; 71045; 71275; 80048; 80076; 82550; 82553; 83690; 83880; 84439; 84443; 84484; 85025; 85379; 87798; 87880; 93005; 93041; 94760; 96375; 99285; J1200; J2930; M0243; Q9967

== ENCOUNTER 2020-12-06 04:21 | Outpatient (CLI) | payer OTHER, MEDICAID ==
[~2020-12-06] VITALS: Ht 152.4 cm; Wt 108.8 kg
--- NOTE | 2020-12-06 03:25 | CR.PDOC ---
General Date of Consultation: Dec 06, 2020 Referring Provider: ABIEL ACUNA DO Primary Care Physician: CHARISSA HOYT PA-C Attending Physician: LUZ HUNT MD Consultation REASON FOR CONSULTATION/CHIEF COMPLAINT: SOB HISTORY OF PRESENT ILLNESS: Patient is a 55 y/o female who presents with a 4 day history of fevers, chills, SOB, loss of taste/sense of smell, fatigue/weakness, multiple positive COVID contacts at home and found to be positive for COVID. She came in due to worsening symptoms. She received both parts of the pfizer vaccine this past September. In the emergency department her lab work and imaging demonstrated findings consistent with COVID-19 infection but none meeting admission criteria. Given her comorbidities the hospitalist service was serg castro for monoclonal antibody infusion. ALLERGIES: Please see below. HOME MEDICATIONS: Please see below. PAST MEDICAL HISTORY: Hyperlipidemia Diabetes mellitus CKD stage III Depression Hypertension History of CVA/TIA History of genital herpes Asthma Bipolar disorder Osteoarthritis Degenerative disc disease History of C. 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 Denies any illicit drug use. Denies any alcohol use. Lives at home with her kids. REVIEW OF SYSTEMS: Constitutional: Denies night sweats, or recent unexpected weight change HEENT: Denies head trauma, no visual changes or eye pain, denies nosebleeds or difficulty swallowing. Cardiovascular: Denies chest pain, palpitations, or orthopnea. Respiratory: Denies wheezing GI: Denies nausea, vomiting, abdominal pain, diarrhea, or constipation : Denies pain with urination or frequency Musculoskeletal: Denies joint pain or swelling Neuro/psych: Denies muscle weakness or sensory loss Skin: Denies skin rashes HOME MEDICATIONS: Please see below. PHYSICAL EXAMINATION: VITAL SIGNS: See below GENERAL APPEARANCE: Obese female sitting comfortably in bed in no acute distress HEENT: NC, AT, EOMI, no scleral icterus, moist mucous membranes, white plaque on surface of tongue and back of throat, no pharyngeal erythema. CARDIOVASCULAR: RRR, normal S1-S2. No murmurs, gallops, rubs. LUNGS: CTAB with full breath sounds, no wheezes, crackles, scattered rhonchi throughout ABDOMEN: Soft, obese abdomen, non-tender, non-distended, bowel sounds present. No CVA tenderness. EXTREMITIES: No swelling or edema NEUROLOGICAL: No focal or sensory deficits. CN II-XII grossly intact. PSYCHIATRIC: Normal mood and affect PHYSICAL EXAMINATION: VITAL SIGNS: Please see below. LABORATORY DATA: Please see below. ASSESSMENT/PLAN: #. COVID pneumonia -Monoclonal Ab infusion -Consent obtained, risks of infusion reviewed with patient, she is comfortable proceeding forward. -Advised to return in the event her symptoms worsened following the infusion. #. Thrush -Nystatin swish and swallow, she was encouraged to get script from PCP. Allergies Coded Allergies: bismuth subsalicylate (Verified Allergy, Intermediate, SWELLING, 04/15/19) metformin (Verified Allergy, Intermediate, KIDNEY FAILURE, 04/15/19) Home Medications Scheduled Amlodipine Besylate (Amlodipine Besylate) 2.5 Mg Tablet, 2.5 MG PO DAILY, (Reported) Aripiprazole (Abilify Maintena) 400 Mg Suser.syr, 400 MG IM QMONTH, (Reported) Aspirin (Aspirin EC) 81 Mg Tab, 81 MG PO DAILY, (Reported) Atenolol (Atenolol) 50 Mg Tablet, 50 MG PO DAILY, (Reported) Benzonatate (Tessalon Perle) 100 Mg Capsule, 1 CAP PO TID for cough for 7 Days, #21 Calcium Carbonate/Vitamin D3 (Calcium 600-Vit D3 400 Tablet) 1 Each Tablet, 1 TAB PO DAILY, (Reported) Cetirizine HCl (Cetirizine HCl) 10 Mg Tablet, 10 MG PO DAILY, (Reported) Clopidogrel Bisulfate (Clopidogrel) 75 Mg Tab, 75 MG PO DAILY, (Reported) Fenofibrate Nanocrystallized (Fenofibrate) 48 Mg Tablet, 48 MG PO DAILY, (Repo rted) Fluticasone Propionate (Flonase Allergy Relief) 50 Mcg/Act Spr, 1 SPRAY NA BID, (Reported) Gabapentin (Gabapentin) 100 Mg Cap, 200 MG PO BID, (Reported) Hydrochlorothiazide (Hydrochlorothiazide) 25 Mg Tablet, 25 MG PO DAILY, (Reported) Insulin Aspart (Novolog Flexpen) 100 Unit/Ml Inj, 1 DOSE SQ ACHS, (Reported) 0-80 nothing 80-150 12units breakfst/10 lunch/8 dinner 151-250 14 breakfast/ 12 lunch/ 10 dinner 251-350 15 breakfast/ 13 lunch/ 11 dinner 351-400 16 breakfast/ 14 lunch/ 12 dinner Insulin Detemir (Levemir) 1 Units/0.01 Ml Susp, 25 UNITS SC BID, (Reported) Liraglutide (Victoza 3-Waqas) 0.6 Mg/0.1 Ml Pen.injctr, 1.8 MG SQ DAILY, (Reported) Lisinopril (Lisinopril) 40 Mg Tablet, 40 MG PO DAILY, (Reported) Magnesium Oxide (Magnesium Oxide) 400 Mg Tab, 400 MG PO DAILY, (Reported) Melatonin (Melatonin) 5 Mg Capsule, 5 MG PO QHS, (Reported) Methenamine Hippurate (Methenamine Hippurate) 1 Gm Tablet, 1 GM PO BID, (Reported) Pioglitazone HCl (Actos) 45 Mg Tablet, 45 MG PO DAILY, (Reported) Pravastatin Sodium (Pravastatin Sodium) 40 Mg Tablet, 40 MG PO DAILY, (Reported) Topiramate (Topamax) 100 Mg Tab, 100 MG PO QHS, (Reported) Venlafaxine HCl (Effexor Xr) 150 Mg Cap.er.24h, 150 MG PO DAILY for 30 Days, #30 (Reported) Vit A/Vit C/Biotin/Zinc/Copper (Hair, Skin and Nails Softgel) 1 Each Capsule, 1 EACH PO DAILY, (Reported) Zonisamide (Zonisamide) 25 Mg Capsule, 25 MG PO QHS, (Reported) [digestive health tab] , 1 TAB PO DAILY, (Reported) Scheduled PRN Acetaminophen with Codeine (Acetaminophen-Cod #4 Tablet) 1 Each Tablet, 1 TAB PO TID PRN for PAIN, (Reported) Albuterol Sulf (Albuterol Sulfate) 2.5 Mg/3 Ml Nebu, 2.5 MG INH QID PRN for SHORTNESS OF BREATH, (Reported) Albuterol Sulfate (Ventolin Hfa) 18 Gm Hfa.aer.ad, 2 PUFFS INH Q6H PRN for SHORTNESS OF BREATH, (Reported) Albuterol Sulfate (Proair Hfa) 8.5 Gm Hfa.aer.ad, 2 PUFF INH Q4-6HP PRN for wheezing for 21 Days, #1 Docusate Sodium (Colace) 100 Mg Cap, 100 MG PO DAILY PRN for CONSTIPATION, (Re ported) GME ATTESTATION GME ATTESTATION My faculty preceptor for this patient encounter was physically present during the encounter and was fully available. All aspects of the patient interview, examination, medical decision making process, and medical care plan development were reviewed and approved by the faculty preceptor. The faculty preceptor is aware and concurs with the plan as stated in the body of this note and will attest to such by his/her cosignature. ATTENDING NOTE time of service 515AM I independently examined the patient, reviewed the note and agree with the findings as document by . SUZANNE GUNTER DO Dec 06, 2020 03:25 LUZ HUNT MD Dec 06, 2020 05:14
[2020-12-06 04:10] VITALS: BP 141/73
[~2020-12-06 04:21] MED LIST changes: +ACETAMINOPHEN TAB 650MG DOSE (2X325MG) PO PRN; +ALBUTEROL 90 MCG/ACT 8GM HFA INHALER INH PRN; +ALBUTEROL SULFATE 2.5 MG/0.5 ML INH NEB SOLN INH PRN; +EPINEPHrine INJ 1 MG/ML 1ML AMP IM PRN; +NS 1,000 ML IV SCH; +NYSTATIN 500,000 U/5 ML SUSP UDC PO SCH; +diphenhydrAMINE 50MG/ML VIAL (J1200) IV ONE; +diphenhydrAMINE 50MG/ML VIAL (J1200) IV PRN; +methylPREDNISolone 125MG 2ML VIAL IV ONE; +methylPREDNISolone 125MG 2ML VIAL IV PRN
[2020-12-06] MEDS ORDERED: CASIRIVIMAB/IMDEVIMAB 1,200 MG in NS 250 ML IV ONE (04:23)
[2020-12-06 05:50] VITALS: BP 139/72
[2020-12-06 06:10] VITALS: BP 145/68
[2020-12-06 06:45] VITALS: BP 147/73
[2020-12-06 07:40] VITALS: BP 140/80
[2020-12-06 08:31] VITALS: BP 166/71
== END 2020-12-06 09:04 | disposition home or self-care (01) ==
LOC: M OPCLI4 04:21 → M 4MAIN 04:22 → M OPCLI4 09:04
PROVIDERS: ATTEND Emergency Medicine
DX: U07.1 COVID-19 (principal)

== ENCOUNTER → 2020-12-23 | Outpatient (REF) | payer OTHER, MEDICAID ==
[~2020-12-23] MED LIST changes: -ACETAMINOPHEN TAB 650MG DOSE (2X325MG) PO PRN; -ALBUTEROL 90 MCG/ACT 8GM HFA INHALER INH PRN; -ALBUTEROL SULFATE 2.5 MG/0.5 ML INH NEB SOLN INH PRN; -EPINEPHrine INJ 1 MG/ML 1ML AMP IM PRN; -NS 1,000 ML IV SCH; -NYSTATIN 500,000 U/5 ML SUSP UDC PO SCH; -diphenhydrAMINE 50MG/ML VIAL (J1200) IV ONE; -diphenhydrAMINE 50MG/ML VIAL (J1200) IV PRN; -methylPREDNISolone 125MG 2ML VIAL IV ONE; -methylPREDNISolone 125MG 2ML VIAL IV PRN
== END ==
LOC: M LAB REF 17:36
PROVIDERS: ATTEND Internal Medicine Nephrology
DX: N18.31 Chronic kidney disease, stage 3a (principal)

== ENCOUNTER → 2021-01-06 | Outpatient (REF) | payer OTHER, MEDICAID ==
[~2021-01-06] MED LIST changes: -FENO48TA7; -FENO48TA7 PO; +FENO48TA8; +FENO48TA8 PO; -MAGN400T3 PO; +MAGN400T33 PO
[2021-01-06 17:51] LABS: APPEARANCE, URINE HAZY (CLEAR); BACTERIA, URINE AUTO 2+ (NEGATIVE); BILIRUBIN, URINE AUTO NEGATIVE (NEGATIVE); BLOOD, URINE BLOOD 1+ (NEGATIVE); COLOR, URINE YELLOW (YELLOW); GLUCOSE, URINE (UA) AUTO NEGATIVE (NEGATIVE); KETONE, URINE AUTO NEGATIVE (NEGATIVE); LEUKOCYTE ESTERASE, URINE AUTO 1+ (NEGATIVE); NITRITE, URINE AUTO POSITIVE (NEGATIVE); PROTEIN, URINE AUTO NEGATIVE (NEGATIVE); RBC, URINE AUTO 2 /HPF (0-3); SPECIFIC GRAVITY URINE AUTO 1.019 (1.002-1.035); SQUAMOUS EPITHELIAL CELL UR AU 4 /HPF (0-6); UROBILINOGEN, URINE AUTO 0.2 mg/dL (0.0-2.0); WBC, URINE AUTO 26 /HPF (0-3)
== END ==
LOC: M SFHCADAM 15:56
PROVIDERS: ATTEND Physician Assistant
DX: R35.0 Frequency of micturition (principal)
CPT/HCPCS: 81001; 87088; 87186; G0463

== ENCOUNTER → 2021-01-15 | Outpatient (CLI) | payer OTHER, MEDICAID | LOC: M PAIN 13:45 | PROVIDERS: ATTEND Anesthesiology | DX: M79.18 Myalgia, other site (principal); E78.5 Hyperlipidemia, unspecified; E11.3292 Type 2 diabetes mellitus with mild nonproliferative diabetic retinopathy without macular edema, left eye; N18.30 Chronic kidney disease, stage 3 unspecified; E11.22 Type 2 diabetes mellitus with diabetic chronic kidney disease; A60.09 Herpesviral infection of other urogenital tract; J45.909 Unspecified asthma, uncomplicated; M51.34 Other intervertebral disc degeneration, thoracic region; G47.33 Obstructive sleep apnea (adult) (pediatric); Z86.73 Personal history of transient ischemic attack (TIA), and cerebral infarction without residual deficits; Z87.891 Personal history of nicotine dependence; Z79.4 Long term (current) use of insulin; Z79.02 Long term (current) use of antithrombotics/antiplatelets; Z79.899 Other long term (current) drug therapy; Z88.8 Allergy status to other drugs, medicaments and biological substances ==

== ENCOUNTER → 2021-02-03 | Outpatient (CLI) | payer OTHER, MEDICAID ==
--- NOTE | 2021-02-03 13:40 | REP ---
INDICATION: METACARPOPHALANGEAL JOINT PAIN OF LEFT HAND. COMPARISON: None. TECHNIQUE: Four views of the 1st digit of the left hand FINDINGS: There is no acute fracture or destructive osseous lesion. There is no subluxation or dislocation. IMPRESSION: Within normal limits <Electronically signed by Akira Walker > 02/03/21 0234
--- NOTE | 2021-02-03 13:41 | REP ---
INDICATION: PAIN IN RIGHT ELBOW. COMPARISON: None TECHNIQUE: Four views FINDINGS: There is no acute fracture, dislocation, subluxation, or joint effusion. IMPRESSION: No acute osseous abnormality. <Electronically signed by Akira Walker > 02/03/21 [id number]
== END ==
LOC: M ADAMS 13:04
PROVIDERS: ATTEND Physician Assistant
DX: M25.542 Pain in joints of left hand (principal); M25.521 Pain in right elbow
CPT/HCPCS: 73080; 73140; G0463

== ENCOUNTER → 2021-02-08 | Outpatient (CLI) | payer OTHER, MEDICAID | LOC: M WHC 15:09 | PROVIDERS: ATTEND Physician Assistant | DX: Z12.31 Encounter for screening mammogram for malignant neoplasm of breast (principal); Z53.8 Procedure and treatment not carried out for other reasons ==

== ENCOUNTER → 2021-02-17 | Outpatient (CLI) | payer OTHER, MEDICAID | LOC: M LABSMTC 11:56 | PROVIDERS: ATTEND Anesthesiology | DX: Z01.812 Encounter for preprocedural laboratory examination (principal); Z11.52 Encounter for screening for COVID-19 ==

== ENCOUNTER 2021-02-22 11:11 | Emergency (ER) | payer OTHER, MEDICAID ==
[~2021-02-22] VITALS: Ht 152.4 cm; Wt 107.7 kg
[~2021-02-22 11:11] MED LIST changes: -LATU80TA PO; +LATU80TA2 PO; -LEVO500T3; +LEVO500T4; +NOVOINJ3 SC; -NOVOINJ3 SQ; +POTA-149 PO; -POTA10TA16 PO
[2021-02-22 11:13] VITALS: BP 193/92
== END 2021-02-22 14:31 | disposition left against medical advice (07) ==
LOC: M ED 11:11
DX: Z53.21 Procedure and treatment not carried out due to patient leaving prior to being seen by health care provider (principal)

== ENCOUNTER → 2021-02-23 | Outpatient (CLI) | payer OTHER, MEDICAID ==
[~2021-02-23] MED LIST changes: +BUPIVACAINE HCL 0.25% 10ML VIAL As Ordered ONE; +BUPIVACAINE HCL 0.25% 30ML VIAL As Ordered ONE; +LATU80TA PO; -LATU80TA2 PO; +LEVO500T3; -LEVO500T4; -NOVOINJ3 SC; +NOVOINJ3 SQ; -POTA-149 PO; +POTA10TA16 PO; +diazePAM 5MG TABLET As Ordered ONE; +oxyCODONE 5MG TAB As Ordered ONE
== END ==
LOC: M PAIN 10:20
PROVIDERS: ATTEND Anesthesiology
DX: M79.18 Myalgia, other site (principal); E78.5 Hyperlipidemia, unspecified; E11.3292 Type 2 diabetes mellitus with mild nonproliferative diabetic retinopathy without macular edema, left eye; F32.A Depression, unspecified; Z86.73 Personal history of transient ischemic attack (TIA), and cerebral infarction without residual deficits; A60.09 Herpesviral infection of other urogenital tract; J45.909 Unspecified asthma, uncomplicated; M51.34 Other intervertebral disc degeneration, thoracic region; N18.30 Chronic kidney disease, stage 3 unspecified; E11.22 Type 2 diabetes mellitus with diabetic chronic kidney disease; G47.33 Obstructive sleep apnea (adult) (pediatric); Z86.16 Personal history of COVID-19; Z88.8 Allergy status to other drugs, medicaments and biological substances; Z79.4 Long term (current) use of insulin; Z79.02 Long term (current) use of antithrombotics/antiplatelets; Z79.899 Other long term (current) drug therapy

== ENCOUNTER → 2021-03-02 | Outpatient (CLI) | payer OTHER, MEDICAID ==
[~2021-03-02] MED LIST changes: -BUPIVACAINE HCL 0.25% 10ML VIAL As Ordered ONE; -BUPIVACAINE HCL 0.25% 30ML VIAL As Ordered ONE; -diazePAM 5MG TABLET As Ordered ONE; -oxyCODONE 5MG TAB As Ordered ONE
--- NOTE | 2021-03-02 10:09 | REPVR ---
PROCEDURE INFORMATION: Exam: CT Cervical Spine Without Contrast Exam date and time: 03/02/2021 9:55 AM Age: 55 years old Clinical indication: Pain; Cervicalgia; Additional info: Cervicalgia, spondylosis, pain lt hand TECHNIQUE: Imaging protocol: Computed tomography images of the cervical spine without contrast. Radiation optimization: All CT scans at this facility use at least one of these dose optimization techniques: automated exposure control; mA and/or kV adjustment per patient size (includes targeted exams where dose is matched to clinical indication); or iterative reconstruction. COMPARISON: CR Spine,Cervical 2 or 3 views 03/31/2018 12:44 PM FINDINGS: Bones/joints: No acute fracture. Normal alignment. Discs/Spinal canal/Neural foramina: There are coarse ventral bridging osteophytes at C5/6 and C6/7. No significant disc protrusion. No severe spinal canal stenosis. No significant neural foraminal narrowing. Lungs: Lung apices are normal. Soft tissues: Unremarkable. IMPRESSION: No acute findings. Electronically signed by: Esmer Figueroa On 03/02/2021 10:09:15 AM
== END ==
LOC: M RAD 09:27
PROVIDERS: ATTEND Physician Assistant Medical
DX: M54.2 Cervicalgia (principal); M79.642 Pain in left hand; M47.892 Other spondylosis, cervical region

== ENCOUNTER → 2021-04-05 | Outpatient (CLI) | payer OTHER, MEDICAID ==
[~2021-04-05] MED LIST changes: -LEVO500T3; +LEVO500T4; +POTA-149 PO; -POTA10TA16 PO
== END ==
LOC: M WHC 14:26
PROVIDERS: ATTEND Physician Assistant
DX: Z12.31 Encounter for screening mammogram for malignant neoplasm of breast (principal)

== ENCOUNTER → 2021-04-14 | Outpatient (REF) | payer OTHER, MEDICAID ==
[~2021-04-14] MED LIST changes: +ALIG4CAP PO; +AMLO1TAB24 PO; +AMMO12CR7 TOP; +ATOR80TA59 PO; +DICL1GEL3 TOP; +ERGO500029 PO; +KETO2CR TOP; -LATU80TA PO; +LATU80TA2 PO; +NAPR-885 PO; +NOVOINJ3 SC; -NOVOINJ3 SQ; +ONDA-83 PO; +PIOG15TA64 PO; +POTA10CA32 PO; +TEMO0.0517 TOP; +TRAM50TA2 PO; +ZETI10TA16 PO
[2021-04-14 18:22] LABS: CHOLESTEROL RISK RATIO 4.021 (<5)
== END ==
LOC: M SFHCADAM 15:44
PROVIDERS: ATTEND Physician Assistant
DX: E78.00 Pure hypercholesterolemia, unspecified (principal)

== ENCOUNTER 2021-04-22 21:12 | Inpatient (IN) | payer OTHER, MEDICAID ==
[~2021-04-22] VITALS: Ht 152.4 cm; Wt 105.3 kg
[2021-04-22] MEDS: LEVEMIR (INSULIN DETEMIR) 1 UNITS/0.01ML SC SCH (21:00)
[~2021-04-22 21:12] MED LIST changes: -ALIG4CAP PO; -AMLO1TAB24 PO; -AMMO12CR7 TOP; -ATOR80TA59 PO; -DICL1GEL3 TOP; -ERGO500029 PO; -KETO2CR TOP; -NAPR-885 PO; -ONDA-83 PO; -PIOG15TA64 PO; -POTA10CA32 PO; -TEMO0.0517 TOP; -TRAM50TA2 PO; -ZETI10TA16 PO; +ZONISAMIDE 25MG CAP (ZONEGRAN) PO SCH
[2021-04-22 21:54] LABS: BASO % 0.5 % (0.0-1.0); EOS # 0.2 10^3/uL (0.0-0.5); EOS % 2.4 % (0.0-3.0); HEMATOCRIT 37.9 % (36.0-47.0); HEMOGLOBIN 12.4 g/dl (12.0-15.5); LYMPH # 1.5 10^3/uL (1.5-5.0); LYMPH % 19.7 % (24.0-44.0); MEAN CORPUSCULAR HEMOGLOBIN 27.3 pg (27.0-33.0); MEAN CORPUSCULAR HGB CONC 32.7 g/dl (32.0-36.5); MEAN CORPUSCULAR VOLUME 83.3 fl (80.0-96.0); MONO # 0.5 10^3/uL (0.0-0.8); MONO % 6.2 % (2.0-8.0); NEUTROPHILS # 5.2 10^3/uL (1.5-8.5); NEUTROPHILS % 70.4 % (36.0-66.0); PLATELET COUNT, AUTOMATED 222 10^3/uL (150-450); RED BLOOD COUNT 4.55 10^6/uL (4.00-5.40); WHITE BLOOD COUNT 7.4 10^3/uL (4.0-10.0)
[2021-04-22] MEDS ORDERED: LISI20TA33 PO (22:04)
[2021-04-22] MEDS ORDERED: ALIG4CAP PO (22:08)
[2021-04-22] MEDS ORDERED: TEMO0.0517 TOP (22:08)
[2021-04-22 22:09] LABS: INR 0.86; PARTIAL THROMBOPLASTIN TIME 24.9 SECONDS (25.9-37.0); PROTHROMBIN TIME 12.1 SECONDS (12.7-14.5)
[2021-04-22] MEDS ORDERED: ERGO500029 PO (22:09)
[2021-04-22] MEDS ORDERED: KETO2CR TOP (22:10)
[2021-04-22] MEDS ORDERED: FURO20TA2 PO (22:10)
[2021-04-22] MEDS ORDERED: NAPR-885 PO (22:11)
[2021-04-22] MEDS ORDERED: K-TA10TA2 PO (22:12)
[2021-04-22] MEDS ORDERED: ONDA-83 PO (22:12)
[2021-04-22 22:18] LABS: CK-MB VALUE MASS 1.2 NG/ML (<3.6); MB/CK RELATIVE INDEX 2.55 (< OR =4)
[2021-04-22 22:24] LABS: CALCIUM LEVEL 8.8 MG/DL (8.5-10.1); CREATININE FOR GFR 1.85 MG/DL (0.55-1.30); POTASSIUM SERUM 4.3 MEQ/L (3.5-5.1)
[2021-04-22] MEDS ORDERED: HumuLIN R (REGULAR) INSULIN (NovoLIN R) **100U/ML** PER UNIT IV ONE (22:30)
[2021-04-22] MEDS ORDERED: NS 500 ML IV ONE (23:55)
[2021-04-23] VITALS (8 sets, daily range): BP systolic 135–165; BP diastolic 58–97
[2021-04-23] MEDS ORDERED: ALIG4CAP PO (00:32)
[2021-04-23] MEDS ORDERED: AMLO1TAB24 PO ×2 (00:32→11:12)
[2021-04-23] MEDS ORDERED: VICT18IN SC (00:48)
[2021-04-23] MEDS ORDERED: POTA10CA32 PO (00:48)
[2021-04-23] MEDS ORDERED: AMMO12CR7 TOP (00:48)
[2021-04-23] MEDS ORDERED: LISI40TA4 PO (00:48)
[2021-04-23] MEDS ORDERED: ZETI10TA16 PO (00:48)
[2021-04-23] MEDS ORDERED: EFFE150C2 PO (00:48)
[2021-04-23] MEDS ORDERED: ATOR80TA59 PO (00:48)
[2021-04-23] MEDS ORDERED: PIOG15TA64 PO (00:48)
[2021-04-23] MEDS ORDERED: FURO20TA2 PO ×2 (00:48→11:12)
[2021-04-23] MEDS ORDERED: DICL1GEL3 TOP (00:48)
[2021-04-23] MEDS ORDERED: NAPR-885 PO (00:48)
[2021-04-23] MEDS ORDERED: ONDA-83 PO (00:48)
[2021-04-23] MEDS ORDERED: HOME MED LIST COMPLETE! XX SCH (00:50)
[2021-04-23 01:23] LABS: RSV AMPLIFICATION NEGATIVE (NEGATIVE)
[2021-04-23] MEDS ORDERED: DOCUSATE SODIUM 100MG CAPSULE PO PRN (02:25)
[2021-04-23] MEDS ORDERED: ALBUTEROL 90 MCG/ACT 8GM HFA INHALER INH PRN (02:25)
[2021-04-23] MEDS ORDERED: GLUCOSE 4GM CHEW TABLET PO PRN (02:30)
[2021-04-23] MEDS ORDERED: GLUCAGON INJ 1MG VIAL SC PRN (02:30)
[2021-04-23] MEDS ORDERED: DEXTROSE 50% 50 ML SYRINGE IV PRN (02:30)
[2021-04-23] MEDS ORDERED: CLOTRIMAZOLE 1% VAG CR 45 GM PV ONE (06:00)
[2021-04-23] MEDS ORDERED: NS 1,000 ML IV SCH (07:10)
[2021-04-23 07:54] LABS: BASO % 0.5 % (0.0-1.0); EOS # 0.3 10^3/uL (0.0-0.5); EOS % 3.4 % (0.0-3.0); HEMATOCRIT 37.7 % (36.0-47.0); LYMPH # 1.4 10^3/uL (1.5-5.0); LYMPH % 19.1 % (24.0-44.0); MEAN CORPUSCULAR HGB CONC 31.8 g/dl (32.0-36.5); MEAN CORPUSCULAR VOLUME 84.9 fl (80.0-96.0); MONO # 0.4 10^3/uL (0.0-0.8); MONO % 5.9 % (2.0-8.0); NEUTROPHILS # 5.2 10^3/uL (1.5-8.5); NEUTROPHILS % 70.4 % (36.0-66.0); PLATELET COUNT, AUTOMATED 209 10^3/uL (150-450); RED BLOOD COUNT 4.44 10^6/uL (4.00-5.40); WHITE BLOOD COUNT 7.4 10^3/uL (4.0-10.0)
[2021-04-23 08:47] LABS: CALCIUM LEVEL 8.7 MG/DL (8.5-10.1); CREATININE FOR GFR 1.35 MG/DL (0.55-1.30); GLOMERULAR FILTRATION RATE 43.2 (>51); POTASSIUM SERUM 4.1 MEQ/L (3.5-5.1)
[2021-04-23] MEDS ORDERED: atenoloL 50 MG TAB PO SCH (09:00)
[2021-04-23] MEDS ORDERED: EZETIMIBE 10MG TABLET (ZETIA) PO SCH (09:00)
[2021-04-23] MEDS ORDERED: GABAPENTIN 100 MG CAP PO SCH (09:00)
[2021-04-23] MEDS ORDERED: ATORVASTATIN 20 MG TAB PO SCH (09:00)
[2021-04-23] MEDS ORDERED: CLOPIDOGREL 75 MG TAB PO SCH (09:00)
[2021-04-23] MEDS ORDERED: ASPIRIN 81MG ENTERIC TABLET PO SCH (09:00)
[2021-04-23] MEDS ORDERED: VENLAFAXINE **XR** 75MG CAPSULE PO SCH (09:00)
[2021-04-23] MEDS ORDERED: amLODIPine 5 MG TAB PO SCH ×2 (09:00→21:00)
[2021-04-23] MEDS: LEVEMIR (INSULIN DETEMIR) 1 UNITS/0.01ML SC SCH (10:10)
[2021-04-23] MEDS: HumaLOG INSULIN (NovoLOG) PER UNIT SC SCH ×2 (10:11→13:50)
[2021-04-23 11:06] LABS: CK-MB VALUE MASS < 1.0 NG/ML (<3.6); CPK CREATINE PHOSPHOKINASE 29 U/L (26-192); MB/CK RELATIVE INDEX 3.45 (< OR =4)
[2021-04-23] MEDS ORDERED: INSUDET SC (11:12)
[2021-04-23] MEDS ORDERED: traMADol 50 MG TAB PO PRN (15:10)
[2021-04-23 15:11] LABS: CK-MB VALUE MASS 1.1 NG/ML (<3.6); MB/CK RELATIVE INDEX 3.67 (< OR =4)
[2021-04-23] MEDS ORDERED: TRAM50TA2 PO (16:14)
[2021-04-23] MEDS ORDERED: HumaLOG INSULIN (NovoLOG) PER UNIT SC SCH (21:00)
== END 2021-04-23 17:40 | disposition home or self-care (01) | DRG 684 ==
LOC: M ED 21:12 → M ED INP 04-23 02:16 → M MSPAV 04-23 03:50
PROVIDERS: ADMIT Internal Medicine; ATTEND Internal Medicine
DX: N17.9 Acute kidney failure, unspecified (principal); R07.89 Other chest pain; R00.2 Palpitations; E11.65 Type 2 diabetes mellitus with hyperglycemia; I12.9 Hypertensive chronic kidney disease with stage 1 through stage 4 chronic kidney disease, or unspecified chronic kidney disease; E78.00 Pure hypercholesterolemia, unspecified; B37.3 Candidiasis of vulva and vagina; E11.40 Type 2 diabetes mellitus with diabetic neuropathy, unspecified; I44.1 Atrioventricular block, second degree; N18.30 Chronic kidney disease, stage 3 unspecified; E11.22 Type 2 diabetes mellitus with diabetic chronic kidney disease; Z79.82 Long term (current) use of aspirin; Z79.02 Long term (current) use of antithrombotics/antiplatelets; Z86.73 Personal history of transient ischemic attack (TIA), and cerebral infarction without residual deficits; Z20.822 Contact with and (suspected) exposure to COVID-19; Z79.4 Long term (current) use of insulin; Z79.899 Other long term (current) drug therapy; Z86.16 Personal history of COVID-19

== ENCOUNTER → 2021-04-30 | Outpatient (REF) | payer OTHER, MEDICAID ==
[~2021-04-30] MED LIST changes: +ALIG4CAP PO; +AMLO1TAB24 PO; +AMMO12CR7 TOP; +ATOR80TA59 PO; +DICL1GEL3 TOP; +ERGO500029 PO; +KETO2CR TOP; +NAPR-885 PO; +ONDA-83 PO; +PIOG15TA64 PO; +POTA10CA32 PO; +TEMO0.0517 TOP; +TRAM50TA2 PO; +ZETI10TA16 PO; -ZONISAMIDE 25MG CAP (ZONEGRAN) PO SCH
[2021-04-30 12:58] LABS: HEMATOCRIT 41.3 % (36.0-47.0); MEAN CORPUSCULAR HEMOGLOBIN 27.3 pg (27.0-33.0); MEAN CORPUSCULAR HGB CONC 31.5 g/dl (32.0-36.5); MEAN CORPUSCULAR VOLUME 86.6 fl (80.0-96.0); PLATELET COUNT, AUTOMATED 309 10^3/uL (150-450); RED BLOOD COUNT 4.77 10^6/uL (4.00-5.40); WHITE BLOOD COUNT 10.3 10^3/uL (4.0-10.0)
[2021-04-30 13:27] LABS: CALCIUM LEVEL 9.9 MG/DL (8.5-10.1); CREATININE FOR GFR 1.07 MG/DL (0.55-1.30); GLOMERULAR FILTRATION RATE 56.5 (>51); POTASSIUM SERUM 4.2 MEQ/L (3.5-5.1)
== END ==
LOC: M SFHCADAM 11:11
PROVIDERS: ATTEND Physician Assistant
DX: N18.32 Chronic kidney disease, stage 3b (principal); Z79.899 Other long term (current) drug therapy

== ENCOUNTER → 2021-05-04 | Outpatient (REF) | payer OTHER, MEDICAID | LOC: M LAB REF 17:08 | PROVIDERS: ATTEND Nurse Practitioner Family | DX: N18.31 Chronic kidney disease, stage 3a (principal) ==

== ENCOUNTER → 2021-05-20 | Outpatient (CLI) | payer OTHER, MEDICAID | LOC: M PAIN 13:45 | PROVIDERS: ATTEND Anesthesiology | DX: M54.50 Low back pain, unspecified (principal); M79.10 Myalgia, unspecified site; M79.18 Myalgia, other site; Z79.891 Long term (current) use of opiate analgesic; E78.5 Hyperlipidemia, unspecified; E11.3292 Type 2 diabetes mellitus with mild nonproliferative diabetic retinopathy without macular edema, left eye; E11.22 Type 2 diabetes mellitus with diabetic chronic kidney disease; N18.30 Chronic kidney disease, stage 3 unspecified; F32.A Depression, unspecified; I12.9 Hypertensive chronic kidney disease with stage 1 through stage 4 chronic kidney disease, or unspecified chronic kidney disease; Z86.73 Personal history of transient ischemic attack (TIA), and cerebral infarction without residual deficits; J45.909 Unspecified asthma, uncomplicated; A60.09 Herpesviral infection of other urogenital tract; F31.9 Bipolar disorder, unspecified; M51.34 Other intervertebral disc degeneration, thoracic region; G47.33 Obstructive sleep apnea (adult) (pediatric); Z86.16 Personal history of COVID-19; Z79.82 Long term (current) use of aspirin; Z79.899 Other long term (current) drug therapy; Z79.4 Long term (current) use of insulin; Z87.891 Personal history of nicotine dependence; Z88.8 Allergy status to other drugs, medicaments and biological substances ==

== ENCOUNTER → 2021-06-15 | Outpatient (REF) | payer OTHER, MEDICAID | LOC: M PLALAB 14:28 | PROVIDERS: ATTEND Advanced Practice Midwife | DX: N89.8 Other specified noninflammatory disorders of vagina (principal) ==

== ENCOUNTER → 2021-06-17 | Outpatient (CLI) | payer OTHER, MEDICAID | LOC: M SOG 13:53 | PROVIDERS: ATTEND Orthopaedic Surgery Adult Reconstructive Orthopaedic Surgery | DX: M25.562 Pain in left knee (principal) ==

== ENCOUNTER 2021-09-29 13:08 | Outpatient (RCR) | payer MEDICARE, MEDICAID ==
[~2021-09-29 13:08] MED LIST changes: +ALBU2.5V10 INH; -ALBU83IN INH
[2021-10-19] MEDS ORDERED: METO1TAB33 PO (16:13)
[2021-10-19] MEDS ORDERED: PIOG1TAB36 PO (16:13)
[2021-10-19] MEDS ORDERED: INSUDET SC (16:13)
[2021-10-19] MEDS ORDERED: FURO20TA2 PO (16:13)
[2021-10-19] MEDS ORDERED: AMLO1TAB24 PO (16:13)
[2021-10-19] MEDS ORDERED: POTA10TA17 PO (16:13)
[2021-10-20] MEDS ORDERED: OXYC-517 PO (12:30)
== END 2021-10-24 ==
LOC: M PT 13:08
PROVIDERS: ATTEND Orthopaedic Surgery Adult Reconstructive Orthopaedic Surgery
DX: M25.562 Pain in left knee (principal)

== ENCOUNTER → 2021-09-30 | Outpatient (REF) | payer MEDICARE, MEDICAID ==
[2021-09-30 13:26] LABS: BASO # 0.1 10^3/uL (0.0-0.2); BASO % 0.7 % (0.0-1.0); EOS # 0.3 10^3/uL (0.0-0.5); EOS % 2.9 % (0.0-3.0); HEMATOCRIT 41.4 % (36.0-47.0); HEMOGLOBIN 13.2 g/dl (12.0-15.5); LYMPH # 2.3 10^3/uL (1.5-5.0); LYMPH % 22.2 % (24.0-44.0); MEAN CORPUSCULAR HEMOGLOBIN 27.1 pg (27.0-33.0); MEAN CORPUSCULAR HGB CONC 31.9 g/dl (32.0-36.5); MONO # 0.5 10^3/uL (0.0-0.8); NEUTROPHILS # 7.1 10^3/uL (1.5-8.5); NEUTROPHILS % 68.1 % (36.0-66.0); PLATELET COUNT, AUTOMATED 251 10^3/uL (150-450); RED BLOOD COUNT 4.87 10^6/uL (4.00-5.40); WHITE BLOOD COUNT 10.4 10^3/uL (4.0-10.0)
[2021-09-30 13:59] LABS: ALBUMIN 3.5 GM/DL (3.2-5.2); BILIRUBIN,TOTAL 0.6 MG/DL (0.2-1.0); CALCIUM LEVEL 9.8 MG/DL (8.5-10.1); CREATININE FOR GFR 1.34 MG/DL (0.55-1.30); GLOMERULAR FILTRATION RATE 43.4 (>51); POTASSIUM SERUM 4.1 MEQ/L (3.5-5.1); TOTAL PROTEIN 7.4 GM/DL (6.4-8.2)
== END ==
LOC: M SFHCADAM 11:12
PROVIDERS: ATTEND Physician Assistant
DX: Z01.818 Encounter for other preprocedural examination (principal)

== ENCOUNTER → 2021-10-14 | Outpatient (CLI) | payer MEDICARE, MEDICAID | LOC: M LABSMTC 10:25 | PROVIDERS: ATTEND Anesthesiology | DX: Z01.818 Encounter for other preprocedural examination (principal); Z11.52 Encounter for screening for COVID-19 ==

== ENCOUNTER 2021-10-19 06:06 | Inpatient (IN) | payer MEDICARE, MEDICAID ==
[2021-10-19] VITALS (8 sets, daily range): BP systolic 116–121; BP diastolic 73–79
[~2021-10-19] VITALS: Ht 152.4 cm; Wt 102.9 kg
[~2021-10-19 06:06] MED LIST changes: +ACETAMINOPHEN 500 MG TAB PO ONE; +NAPROXEN 250 MG TAB PO ONE; +NS 1,000 ML IV ONE; +PREGABALIN 25 MG CAP (LYRICA) PO ONE; +ROPIVA 125MG/EPINEPH 0.25MG/CLONID 40MCG/KETOR 15MG IN NS 50ML SYRINGE PA ONE; +ceFAZolin SOD 2 GM in IV 1 EA IV ONE; +dexameTHASONE 4 MG/ML 1ML VIAL (J1100 PER 1MG) IV ONE
[2021-10-19] MEDS ORDERED: TRANEXAMIC ACID 100 MG/ML 10ML VIAL As Ordered ONE ×2 (07:17→07:21)
[2021-10-19] MEDS ORDERED: LACTATED RINGER'S 1000 ML IV STA (07:38)
[2021-10-19] MEDS ORDERED: MIDAZOLAM INJ 2MG/2ML VIAL (J2250 PER 1MG) As Ordered ONE (08:52)
[2021-10-19] MEDS ORDERED: ePHEDrine SULFATE 25 MG/5 ML(5MG/ML) SYRINGE As Ordered ONE (08:52)
[2021-10-19] MEDS ORDERED: PHENYLephrine 500MCG 5ML (100MCG/ML) SYRINGE As Ordered ONE (08:52)
[2021-10-19] MEDS ORDERED: propofoL 200 MG/20 ML VIAL As Ordered ONE (08:52)
[2021-10-19] MEDS ORDERED: VASOPRESSIN INJ 20 UNITS/ML VIAL As Ordered ONE (09:31)
[2021-10-19] MEDS ORDERED: INSULIN LISPRO (NovoLOG) PER UNIT SC PRN ×2 (10:35→11:55)
[2021-10-19] MEDS ORDERED: fentaNYL 100 MCG/2 ML INJECTION IV PRN (10:35)
[2021-10-19] MEDS ORDERED: LR 1,000 ML IV SCH ×2 (10:35→12:55)
[2021-10-19] MEDS ORDERED: ONDANSETRON 4MG 2ML VIAL IV PRN ×2 (10:35→11:35)
[2021-10-19] MEDS: oxyCODONE 5MG TAB PO PRN ×4 (11:16→21:04)
[2021-10-19] MEDS ORDERED: SENNA 8.6 MG TAB (SENOKOT) PO PRN (11:35)
[2021-10-19] MEDS ORDERED: oxyCODONE 5MG TAB PO PRN (11:35)
[2021-10-19] MEDS: INSULIN LISPRO (NovoLOG) PER UNIT SC SCH ×2 (12:00→18:03)
[2021-10-19] MEDS: ACETAMINOPHEN TAB 650MG DOSE (2X325MG) PO SCH ×2 (13:19→18:04)
[2021-10-19] MEDS ORDERED: MAALOX 30 ML SUSP *UDC PO PRN (13:35)
[2021-10-19] MEDS ORDERED: DEXTROSE 50% 50 ML SYRINGE IV PRN (13:35)
[2021-10-19] MEDS ORDERED: GLUCAGON INJ 1MG VIAL SC PRN (13:35)
[2021-10-19] MEDS ORDERED: MOM 30ML SUSPENSION UDC PO PRN (13:35)
[2021-10-19] MEDS ORDERED: GLUCOSE 4GM CHEW TABLET PO PRN (13:35)
[2021-10-19] MEDS ORDERED: FURO20TA2 PO (16:13)
[2021-10-19] MEDS ORDERED: POTA10TA17 PO (16:13)
[2021-10-19] MEDS ORDERED: METO1TAB33 PO (16:13)
[2021-10-19] MEDS ORDERED: AMLO1TAB24 PO (16:13)
[2021-10-19] MEDS ORDERED: INSUDET SC (16:13)
[2021-10-19] MEDS ORDERED: PIOG1TAB36 PO (16:13)
[2021-10-19 16:14] LABS: HEMATOCRIT 34.1 % (36.0-47.0); HEMOGLOBIN 11.3 g/dl (12.0-15.5); MEAN CORPUSCULAR HEMOGLOBIN 28.3 pg (27.0-33.0); MEAN CORPUSCULAR HGB CONC 33.1 g/dl (32.0-36.5); MEAN CORPUSCULAR VOLUME 85.3 fl (80.0-96.0); PLATELET COUNT, AUTOMATED 201 10^3/uL (150-450); WHITE BLOOD COUNT 15.4 10^3/uL (4.0-10.0)
[2021-10-19] MEDS ORDERED: HOME MED LIST COMPLETE! XX SCH (16:15)
[2021-10-19] MEDS: ceFAZolin SOD 2 GM in IV 1 EA IV SCH (16:28)
[2021-10-19] MEDS ORDERED: ZONISAMIDE 25MG CAP (ZONEGRAN) PO SCH ×3 (16:40→21:00)
[2021-10-19 16:48] LABS: CALCIUM LEVEL 8.4 MG/DL (8.5-10.1); CREATININE FOR GFR 1.36 MG/DL (0.55-1.30); GLOMERULAR FILTRATION RATE 42.7 (>51); POTASSIUM SERUM 4.3 MEQ/L (3.5-5.1)
[2021-10-19] MEDS: DOCUSATE SODIUM 100MG CAPSULE PO SCH (21:00)
[2021-10-19] MEDS ORDERED: ATORVASTATIN 20 MG TAB PO SCH (21:00)
[2021-10-19] MEDS ORDERED: LEVEMIR (INSULIN DETEMIR) 1 UNITS/0.01ML SC ONE (21:00)
[2021-10-19] MEDS ORDERED: INSULIN LISPRO (NovoLOG) PER UNIT SC SCH (21:00)
[2021-10-19] MEDS: GABAPENTIN 100 MG CAP PO SCH (21:01)
[2021-10-19] MEDS: METOPROLOL TART 50 MG TAB PO SCH (21:03)
[2021-10-20] MEDS: ceFAZolin SOD 2 GM in IV 1 EA IV SCH (00:12)
[2021-10-20] MEDS: ACETAMINOPHEN TAB 650MG DOSE (2X325MG) PO SCH ×3 (00:13→12:18)
[2021-10-20 01:11] VITALS: O2SAT 92
[2021-10-20 02:00] VITALS: BP 122/74
[2021-10-20] MEDS: traMADol 50 MG TAB PO PRN ×2 (02:37→08:16)
[2021-10-20 03:17] VITALS: O2SAT 97
[2021-10-20 06:00] VITALS: BP 121/68
[2021-10-20] MEDS: INSULIN LISPRO (NovoLOG) PER UNIT SC SCH ×2 (06:08→12:17)
[2021-10-20 06:28] LABS: HEMATOCRIT 31.6 % (36.0-47.0); HEMOGLOBIN 10.2 g/dl (12.0-15.5); MEAN CORPUSCULAR HEMOGLOBIN 27.6 pg (27.0-33.0); MEAN CORPUSCULAR HGB CONC 32.3 g/dl (32.0-36.5); MEAN CORPUSCULAR VOLUME 85.6 fl (80.0-96.0); PLATELET COUNT, AUTOMATED 190 10^3/uL (150-450); RED BLOOD COUNT 3.69 10^6/uL (4.00-5.40)
[2021-10-20] MEDS: oxyCODONE 5MG TAB PO PRN ×2 (06:30→12:17)
[2021-10-20 06:46] LABS: CALCIUM LEVEL 8.5 MG/DL (8.5-10.1); CREATININE FOR GFR 1.5 MG/DL (0.55-1.30); GLOMERULAR FILTRATION RATE 38.1 (>51); POTASSIUM SERUM 4.3 MEQ/L (3.5-5.1)
[2021-10-20] MEDS ORDERED: INSULIN LISPRO (NovoLOG) PER UNIT SC STA (06:48)
[2021-10-20] MEDS: GABAPENTIN 100 MG CAP PO SCH (08:14)
[2021-10-20] MEDS: DOCUSATE SODIUM 100MG CAPSULE PO SCH (08:14)
[2021-10-20 08:15] VITALS: BP 117/66
[2021-10-20] MEDS: METOPROLOL TART 50 MG TAB PO SCH (08:15)
[2021-10-20] MEDS ORDERED: EZETIMIBE 10MG TABLET (ZETIA) PO SCH (09:00)
[2021-10-20] MEDS ORDERED: amLODIPine 5 MG TAB PO SCH (09:00)
[2021-10-20] MEDS ORDERED: VENLAFAXINE **XR** 75MG CAPSULE PO SCH (09:00)
[2021-10-20] MEDS ORDERED: FLUCONAZOLE 50MG TABLET PO ONE (09:00)
[2021-10-20] MEDS ORDERED: ASPIRIN 81MG ENTERIC TABLET PO SCH (09:00)
[2021-10-20] MEDS ORDERED: FERROUS SULFATE 325MG TAB PO SCH (09:00)
[2021-10-20] MEDS ORDERED: FLUCONAZOLE 50MG TABLET PO SCH (09:00)
[2021-10-20] MEDS ORDERED: LEVEMIR (INSULIN DETEMIR) 1 UNITS/0.01ML SC SCH (09:00)
[2021-10-20] MEDS ORDERED: ASCORBIC ACID 500 MG TAB PO SCH (09:00)
[2021-10-20] MEDS ORDERED: CLOPIDOGREL 75 MG TAB PO SCH (09:00)
[2021-10-20] MEDS ORDERED: atenoloL 50 MG TAB PO SCH (09:00)
[2021-10-20 10:00] VITALS: BP 121/73
[2021-10-20] MEDS ORDERED: OXYC-517 PO (12:30)
== END 2021-10-20 14:30 | disposition home health service (06) | DRG 470 ==
LOC: M SDC 06:06 → M MS5PR 12:40 → M SDC 13:32 → M MS5PR 13:33
PROVIDERS: ADMIT Internal Medicine; ATTEND Orthopaedic Surgery Adult Reconstructive Orthopaedic Surgery
PROC: 0SRD0JZ Replacement of Left Knee Joint with Synthetic Substitute, Open Approach (ICD-10-PCS; principal; 2021-10-19 07:30)
DX: M17.12 Unilateral primary osteoarthritis, left knee (principal); Z68.41 Body mass index [BMI] 40.0-44.9, adult; E11.22 Type 2 diabetes mellitus with diabetic chronic kidney disease; N18.30 Chronic kidney disease, stage 3 unspecified; I25.10 Atherosclerotic heart disease of native coronary artery without angina pectoris; Z86.73 Personal history of transient ischemic attack (TIA), and cerebral infarction without residual deficits; I12.9 Hypertensive chronic kidney disease with stage 1 through stage 4 chronic kidney disease, or unspecified chronic kidney disease; E78.5 Hyperlipidemia, unspecified; E66.9 Obesity, unspecified; Z95.0 Presence of cardiac pacemaker; F31.9 Bipolar disorder, unspecified; Z98.49 Cataract extraction status, unspecified eye; Z79.4 Long term (current) use of insulin; Z79.82 Long term (current) use of aspirin; Z79.899 Other long term (current) drug therapy; Z88.6 Allergy status to analgesic agent; Z88.8 Allergy status to other drugs, medicaments and biological substances

== ENCOUNTER 2021-10-24 17:50 | Emergency (ER) | payer MEDICARE, MEDICAID ==
[~2021-10-24] VITALS: Ht 152.4 cm; Wt 101.4 kg
[~2021-10-24 17:50] MED LIST changes: -ACETAMINOPHEN 500 MG TAB PO ONE; +LEVO1TAB39; -LEVO500T4; +METO1TAB33 PO; -NAPROXEN 250 MG TAB PO ONE; -NS 1,000 ML IV ONE; +OXYC-517 PO; +PIOG1TAB36 PO; +POTA-150 PO; -PREGABALIN 25 MG CAP (LYRICA) PO ONE; -ROPIVA 125MG/EPINEPH 0.25MG/CLONID 40MCG/KETOR 15MG IN NS 50ML SYRINGE PA ONE; -ceFAZolin SOD 2 GM in IV 1 EA IV ONE; -dexameTHASONE 4 MG/ML 1ML VIAL (J1100 PER 1MG) IV ONE
[2021-10-24] MEDS ORDERED: NS 1,000 ML IV ONE (19:30)
[2021-10-24] MEDS ORDERED: MORPHINE 4 MG/ML 1ML VIAL/SYRINGE IV ONE (19:30)
[2021-10-24] MEDS ORDERED: ONDANSETRON 4MG 2ML VIAL IV ONE (19:30)
[2021-10-24 19:42] LABS: BASO # 0.1 10^3/uL (0.0-0.2); BASO % 0.6 % (0.0-1.0); EOS # 0.5 10^3/uL (0.0-0.5); EOS % 4.6 % (0.0-3.0); HEMATOCRIT 34.5 % (36.0-47.0); LYMPH # 1.9 10^3/uL (1.5-5.0); LYMPH % 19.1 % (24.0-44.0); MEAN CORPUSCULAR HEMOGLOBIN 27.8 pg (27.0-33.0); MEAN CORPUSCULAR HGB CONC 31.9 g/dl (32.0-36.5); MEAN CORPUSCULAR VOLUME 87.3 fl (80.0-96.0); MONO # 0.8 10^3/uL (0.0-0.8); MONO % 7.6 % (2.0-8.0); NEUTROPHILS # 6.7 10^3/uL (1.5-8.5); NEUTROPHILS % 66.5 % (36.0-66.0); PLATELET COUNT, AUTOMATED 286 10^3/uL (150-450); RED BLOOD COUNT 3.95 10^6/uL (4.00-5.40)
[2021-10-24 20:01] LABS: ERYTHROCYTE SEDIMENTATION RATE 82 mm/hr (0-30)
[2021-10-24 21:02] VITALS: BP 126/82
== END 2021-10-24 21:04 | disposition home or self-care (01) ==
LOC: M ED 17:50
DX: R22.42 Localized swelling, mass and lump, left lower limb (principal); Z96.652 Presence of left artificial knee joint; E11.9 Type 2 diabetes mellitus without complications; I10 Essential (primary) hypertension; J45.909 Unspecified asthma, uncomplicated; N18.30 Chronic kidney disease, stage 3 unspecified; E78.5 Hyperlipidemia, unspecified; F25.9 Schizoaffective disorder, unspecified; F31.9 Bipolar disorder, unspecified; Z95.0 Presence of cardiac pacemaker; Z86.73 Personal history of transient ischemic attack (TIA), and cerebral infarction without residual deficits; Z88.8 Allergy status to other drugs, medicaments and biological substances; Z79.899 Other long term (current) drug therapy; Z79.4 Long term (current) use of insulin; Z79.82 Long term (current) use of aspirin; Z79.51 Long term (current) use of inhaled steroids; Z79.01 Long term (current) use of anticoagulants; F17.200 Nicotine dependence, unspecified, uncomplicated
CPT/HCPCS: 80047; 83605; 85025; 85652; 86140; 93971; 96361; 96374; 96375; 99284; J2270; J2405

== ENCOUNTER → 2021-11-03 | Outpatient (CLI) | payer MEDICARE, MEDICAID | LOC: M SOG 09:22 | PROVIDERS: ATTEND Orthopaedic Surgery Adult Reconstructive Orthopaedic Surgery | DX: M17.12 Unilateral primary osteoarthritis, left knee (principal); Z96.652 Presence of left artificial knee joint ==

== ENCOUNTER → 2021-11-21 | Outpatient (CLI) | payer OTHER, MEDICAID | LOC: M LABSMTC 10:42 | PROVIDERS: ATTEND Anesthesiology | DX: Z01.812 Encounter for preprocedural laboratory examination (principal) ==

== ENCOUNTER 2021-11-22 12:24 | Outpatient (RCR) | payer MEDICARE, MEDICAID | END 2021-11-24 | LOC: M PT 12:24 | PROVIDERS: ATTEND Orthopaedic Surgery Adult Reconstructive Orthopaedic Surgery | DX: Z96.652 Presence of left artificial knee joint (principal) ==

== ENCOUNTER → 2021-11-23 | Outpatient (CLI) | payer MEDICARE, MEDICAID ==
[~2021-11-23] MED LIST changes: +BUPIVACAINE HCL 0.25% 10ML VIAL As Ordered ONE; +BUPIVACAINE HCL 0.25% 30ML VIAL As Ordered ONE; +diazePAM 5MG TABLET As Ordered ONE; +oxyCODONE 5MG TAB As Ordered ONE
== END ==
LOC: M PAIN 08:30
PROVIDERS: ATTEND Anesthesiology
DX: M79.18 Myalgia, other site (principal); M51.26 Other intervertebral disc displacement, lumbar region; M79.10 Myalgia, unspecified site; E78.5 Hyperlipidemia, unspecified; M48.061 Spinal stenosis, lumbar region without neurogenic claudication; E11.3292 Type 2 diabetes mellitus with mild nonproliferative diabetic retinopathy without macular edema, left eye; E11.22 Type 2 diabetes mellitus with diabetic chronic kidney disease; N18.30 Chronic kidney disease, stage 3 unspecified; F32.A Depression, unspecified; I12.9 Hypertensive chronic kidney disease with stage 1 through stage 4 chronic kidney disease, or unspecified chronic kidney disease; J45.909 Unspecified asthma, uncomplicated; A60.09 Herpesviral infection of other urogenital tract; F31.9 Bipolar disorder, unspecified; M51.34 Other intervertebral disc degeneration, thoracic region; G47.33 Obstructive sleep apnea (adult) (pediatric); Z86.16 Personal history of COVID-19; Z79.82 Long term (current) use of aspirin; Z79.899 Other long term (current) drug therapy; Z86.73 Personal history of transient ischemic attack (TIA), and cerebral infarction without residual deficits; Z79.4 Long term (current) use of insulin; Z87.891 Personal history of nicotine dependence; Z79.891 Long term (current) use of opiate analgesic; Z88.8 Allergy status to other drugs, medicaments and biological substances; Z87.440 Personal history of urinary (tract) infections; Z79.02 Long term (current) use of antithrombotics/antiplatelets

== ENCOUNTER 2021-12-23 13:00 | Outpatient (RCR) | payer MEDICARE, MEDICAID ==
[~2021-12-23 13:00] MED LIST changes: -BUPIVACAINE HCL 0.25% 10ML VIAL As Ordered ONE; -BUPIVACAINE HCL 0.25% 30ML VIAL As Ordered ONE; -diazePAM 5MG TABLET As Ordered ONE; -oxyCODONE 5MG TAB As Ordered ONE
== END 2021-12-24 ==
LOC: M PT 13:00
PROVIDERS: ATTEND Orthopaedic Surgery Adult Reconstructive Orthopaedic Surgery
DX: Z96.652 Presence of left artificial knee joint (principal)

== ENCOUNTER 2021-12-30 12:47 | Outpatient (RCR) | payer MEDICARE, MEDICAID | END 2022-01-24 | LOC: M PT 12:47 | PROVIDERS: ATTEND Orthopaedic Surgery Adult Reconstructive Orthopaedic Surgery | DX: Z96.652 Presence of left artificial knee joint (principal) ==

== ENCOUNTER 2022-01-18 15:33 | Emergency (ER) | payer MEDICARE, MEDICAID ==
[~2022-01-18] VITALS: Ht 152.4 cm; Wt 98.7 kg
[2022-01-18 15:34] VITALS: BP 142/100
== END 2022-01-18 19:52 | disposition left against medical advice (07) ==
LOC: M ED 15:33
DX: Z53.21 Procedure and treatment not carried out due to patient leaving prior to being seen by health care provider (principal)

== ENCOUNTER → 2022-01-19 | Outpatient (CLI) | payer MEDICARE, MEDICAID | LOC: M PAIN 13:45 | PROVIDERS: ATTEND Anesthesiology | DX: M54.50 Low back pain, unspecified (principal); M79.10 Myalgia, unspecified site; M79.18 Myalgia, other site; E78.5 Hyperlipidemia, unspecified; M48.061 Spinal stenosis, lumbar region without neurogenic claudication; E11.3292 Type 2 diabetes mellitus with mild nonproliferative diabetic retinopathy without macular edema, left eye; E11.22 Type 2 diabetes mellitus with diabetic chronic kidney disease; N18.30 Chronic kidney disease, stage 3 unspecified; F32.A Depression, unspecified; I12.9 Hypertensive chronic kidney disease with stage 1 through stage 4 chronic kidney disease, or unspecified chronic kidney disease; J45.909 Unspecified asthma, uncomplicated; A60.09 Herpesviral infection of other urogenital tract; F31.9 Bipolar disorder, unspecified; M51.34 Other intervertebral disc degeneration, thoracic region; G47.33 Obstructive sleep apnea (adult) (pediatric); Z86.16 Personal history of COVID-19; Z79.82 Long term (current) use of aspirin; Z79.899 Other long term (current) drug therapy; Z86.73 Personal history of transient ischemic attack (TIA), and cerebral infarction without residual deficits; Z79.4 Long term (current) use of insulin; Z87.891 Personal history of nicotine dependence; Z79.891 Long term (current) use of opiate analgesic; Z88.8 Allergy status to other drugs, medicaments and biological substances; Z87.440 Personal history of urinary (tract) infections; Z79.02 Long term (current) use of antithrombotics/antiplatelets ==

== ENCOUNTER 2022-02-21 13:19 | Outpatient (RCR) | payer MEDICARE, MEDICAID | END 2022-02-23 | LOC: M PT 13:19 | PROVIDERS: ATTEND Anesthesiology | DX: M54.50 Low back pain, unspecified (principal) ==

== ENCOUNTER → 2022-03-07 | Outpatient (CLI) | payer MEDICARE, MEDICAID, OTHER ==
[~2022-03-07] MED LIST changes: -POTA10CA32 PO; +POTA10CA33 PO
== END ==
LOC: M SOG 08:02
PROVIDERS: ATTEND Orthopaedic Surgery Adult Reconstructive Orthopaedic Surgery
DX: M17.11 Unilateral primary osteoarthritis, right knee (principal); Z96.652 Presence of left artificial knee joint

== ENCOUNTER 2022-03-09 14:11 | Outpatient (RCR) | payer MEDICARE, MEDICAID | END 2022-03-26 | LOC: M PT 14:11 | PROVIDERS: ATTEND Anesthesiology | DX: M54.50 Low back pain, unspecified (principal) ==

== ENCOUNTER 2022-03-20 15:43 | Emergency (ER) | payer MEDICARE, MEDICAID ==
[2022-03-20 16:21] LABS: BASO % 0.4 % (0.0-1.0); EOS # 0.3 10^3/uL (0.0-0.5); HEMATOCRIT 35.6 % (36.0-47.0); HEMOGLOBIN 11.5 g/dl (12.0-15.5); LYMPH # 1.8 10^3/uL (1.5-5.0); LYMPH % 16.6 % (24.0-44.0); MEAN CORPUSCULAR HEMOGLOBIN 27.1 pg (27.0-33.0); MEAN CORPUSCULAR HGB CONC 32.3 g/dl (32.0-36.5); MEAN CORPUSCULAR VOLUME 83.8 fl (80.0-96.0); MONO # 0.6 10^3/uL (0.0-0.8); MONO % 5.6 % (2.0-8.0); NEUTROPHILS # 8.1 10^3/uL (1.5-8.5); NEUTROPHILS % 73.7 % (36.0-66.0); PLATELET COUNT, AUTOMATED 257 10^3/uL (150-450); RED BLOOD COUNT 4.25 10^6/uL (4.00-5.40)
[2022-03-20 16:39] LABS: LIPASE 52 U/L (12-53)
[2022-03-20 16:41] LABS: CPK CREATINE PHOSPHOKINASE 26 U/L (34-145)
[2022-03-20 16:42] LABS: ALKALINE PHOSPHATASE 173 U/L (46-116); ALT/SGPT 21 U/L (7.0-40); AST/SGOT 16 U/L (<34); BILIRUBIN,DIRECT < 0.1 MG/DL (<0.4); BILIRUBIN,TOTAL 0.2 MG/DL (0.3-1.2); BLOOD UREA NITROGEN 16 MG/DL (9-23); CALCIUM LEVEL 8.9 MG/DL (8.5-10.1); CARBON DIOXIDE LEVEL 26 MMOL/L (20-31); CHLORIDE LEVEL 107 MMOL/L (98-107); CK-MB VALUE MASS < 1.0 NG/ML (<3.6); CREATININE FOR GFR 0.87 MG/DL (0.55-1.30); GLOMERULAR FILTRATION RATE > 60.0 (>51); GLUCOSE, FASTING 86 MG/DL (60-100); MB/CK RELATIVE INDEX 3.84 (< OR =4); POTASSIUM SERUM 3.7 MMOL/L (3.5-5.1); SODIUM LEVEL 141 MMOL/L (136-145); TOTAL PROTEIN 6.5 G/DL (5.7-8.2)
[2022-03-20] MEDS ORDERED: PANTOPRAZOLE 40MG VIAL IV ONE (16:55)
[2022-03-20 18:17] VITALS: BP 163/88
== END 2022-03-20 18:29 | disposition home or self-care (01) ==
LOC: M ED 15:43 → EDBD 15:43 → M ED 18:29
DX: K21.9 Gastro-esophageal reflux disease without esophagitis (principal); R07.89 Other chest pain; E11.9 Type 2 diabetes mellitus without complications; I10 Essential (primary) hypertension; E78.5 Hyperlipidemia, unspecified; Z86.73 Personal history of transient ischemic attack (TIA), and cerebral infarction without residual deficits; J45.909 Unspecified asthma, uncomplicated; G47.33 Obstructive sleep apnea (adult) (pediatric); F31.9 Bipolar disorder, unspecified; N18.30 Chronic kidney disease, stage 3 unspecified; Z95.0 Presence of cardiac pacemaker; Z87.891 Personal history of nicotine dependence; Z79.4 Long term (current) use of insulin; Z79.82 Long term (current) use of aspirin; Z79.899 Other long term (current) drug therapy; Z88.6 Allergy status to analgesic agent; Z88.8 Allergy status to other drugs, medicaments and biological substances
CPT/HCPCS: 71045; 80048; 80076; 82550; 82553; 83690; 84484; 85025; 93005; 93041; 94760; 96374; 99285; C9113

== ENCOUNTER → 2022-04-09 | Outpatient (REF) | payer MEDICARE, MEDICAID, OTHER ==
[2022-04-09 18:22] LABS: APPEARANCE, URINE MANUAL CLOUDY (CLEAR); COLOR, URINE MANUAL LT YELLOW (YELLOW)
[2022-04-09 18:25] LABS: BILIRUBIN, URINE MANUAL NEGATIVE (NEGATIVE); BLOOD URINE MANUAL POSITIVE (NEGATIVE); GLUCOSE, URINE (UA) MANUAL 4+(1000 MG/DL) mg/dL (NEGATIVE); KETONE, URINE MANUAL 1+ mg/dL (NEGATIVE); LEUKOCYTE ESTERASE, URINE MAN POSITIVE (NEGATIVE); NITRITE, URINE MANUAL POSITIVE (NEGATIVE); PROTEIN, URINE MANUAL NEGATIVE (NEGATIVE); UROBILINOGEN, URINE MANUAL NORMAL (NORMAL)
[2022-04-09 18:32] LABS: BACTERIA, URINE LARGE AMOUNT; HYALINE CAST, URINE NONE SEEN /lpf (0-1); RENAL EPITHELIAL CELLS, URINE SMALL AMOUNT /hpf; SQUAMOUS EPITHELIAL CELL URINE SMALL AMOUNT /hpf (SMALL AMT); WBC, URINE TNTC /hpf (0-3)
== END ==
LOC: M LAB REF 17:44
PROVIDERS: ATTEND Physician Assistant Medical
DX: N39.0 Urinary tract infection, site not specified (principal)

== ENCOUNTER 2022-04-11 14:49 | Outpatient (RCR) | payer MEDICARE, MEDICAID | END 2022-04-26 | LOC: M PT 14:49 | PROVIDERS: ATTEND Anesthesiology | DX: M54.50 Low back pain, unspecified (principal) ==

== ENCOUNTER → 2022-04-14 | Outpatient (CLI) | payer MEDICARE, MEDICAID | LOC: M SOG 12:03 | PROVIDERS: ATTEND Orthopaedic Surgery Adult Reconstructive Orthopaedic Surgery | DX: Z96.652 Presence of left artificial knee joint (principal) ==

== ENCOUNTER → 2022-04-20 | Outpatient (CLI) | payer MEDICARE, MEDICAID | LOC: M PAIN 14:00 | PROVIDERS: ATTEND Anesthesiology | DX: M54.50 Low back pain, unspecified (principal); G89.29 Other chronic pain; E11.9 Type 2 diabetes mellitus without complications; I10 Essential (primary) hypertension; J45.909 Unspecified asthma, uncomplicated; G47.33 Obstructive sleep apnea (adult) (pediatric); Z86.59 Personal history of other mental and behavioral disorders; Z95.0 Presence of cardiac pacemaker; Z96.652 Presence of left artificial knee joint; Z87.891 Personal history of nicotine dependence; Z88.8 Allergy status to other drugs, medicaments and biological substances; Z79.4 Long term (current) use of insulin; Z79.82 Long term (current) use of aspirin; Z79.899 Other long term (current) drug therapy ==

== ENCOUNTER → 2022-04-23 | Outpatient (REF) | payer MEDICARE, MEDICAID, OTHER ==
[2022-04-23 19:31] LABS: APPEARANCE, URINE MANUAL CLEAR (CLEAR); BILIRUBIN, URINE MANUAL NEGATIVE (NEGATIVE); BLOOD URINE MANUAL NEGATIVE (NEGATIVE); COLOR, URINE MANUAL YELLOW (YELLOW); GLUCOSE, URINE (UA) MANUAL 4+(1000 MG/DL) mg/dL (NEGATIVE); KETONE, URINE MANUAL NEGATIVE (NEGATIVE); LEUKOCYTE ESTERASE, URINE MAN NEGATIVE (NEGATIVE); NITRITE, URINE MANUAL NEGATIVE (NEGATIVE); PROTEIN, URINE MANUAL NEGATIVE (NEGATIVE); UROBILINOGEN, URINE MANUAL NORMAL (NORMAL)
== END ==
LOC: M LAB REF 19:12
PROVIDERS: ATTEND Physician Assistant
DX: N39.0 Urinary tract infection, site not specified (principal)

== ENCOUNTER → 2022-05-02 | Outpatient (CLI) | payer MEDICARE, MEDICAID | LOC: M RAD 09:53 | PROVIDERS: ATTEND Anesthesiology | DX: M47.896 Other spondylosis, lumbar region (principal); M46.96 Unspecified inflammatory spondylopathy, lumbar region; M51.36 Other intervertebral disc degeneration, lumbar region ==

== ENCOUNTER → 2022-05-05 | Outpatient (CLI) | payer MEDICARE, MEDICAID | LOC: M RAD 12:40 | PROVIDERS: ATTEND Anesthesiology | DX: M79.10 Myalgia, unspecified site (principal) ==

== ENCOUNTER → 2022-05-05 | Outpatient (CLI) | payer MEDICARE, MEDICAID ==
[~2022-05-05] MED LIST changes: +INSU100I6 SC; -LEVE1INJ5 SC
== END ==
LOC: M PAIN 10:00
PROVIDERS: ATTEND Anesthesiology
DX: M79.10 Myalgia, unspecified site (principal); M79.18 Myalgia, other site; M54.50 Low back pain, unspecified; E78.5 Hyperlipidemia, unspecified; F32.A Depression, unspecified; J45.909 Unspecified asthma, uncomplicated; F31.9 Bipolar disorder, unspecified; G47.33 Obstructive sleep apnea (adult) (pediatric); M47.814 Spondylosis without myelopathy or radiculopathy, thoracic region; G89.29 Other chronic pain; N18.30 Chronic kidney disease, stage 3 unspecified; E11.3299 Type 2 diabetes mellitus with mild nonproliferative diabetic retinopathy without macular edema, unspecified eye; E11.22 Type 2 diabetes mellitus with diabetic chronic kidney disease; I12.9 Hypertensive chronic kidney disease with stage 1 through stage 4 chronic kidney disease, or unspecified chronic kidney disease; Z86.59 Personal history of other mental and behavioral disorders; Z95.0 Presence of cardiac pacemaker; Z96.652 Presence of left artificial knee joint; Z87.891 Personal history of nicotine dependence; Z88.8 Allergy status to other drugs, medicaments and biological substances; Z79.4 Long term (current) use of insulin; Z79.82 Long term (current) use of aspirin; Z79.899 Other long term (current) drug therapy; Z86.16 Personal history of COVID-19
CPT/HCPCS: 72190; G0463

== ENCOUNTER 2022-05-23 14:04 | Outpatient (RCR) | payer MEDICARE, MEDICAID | END 2022-05-24 | LOC: M PT 14:04 | PROVIDERS: ATTEND Orthopaedic Surgery Adult Reconstructive Orthopaedic Surgery | DX: Z47.1 Aftercare following joint replacement surgery (principal); Z96.652 Presence of left artificial knee joint | CPT/HCPCS: 97110; 97161; G0283 ==

== ENCOUNTER → 2022-06-05 | Outpatient (REF) | payer MEDICARE, MEDICAID | LOC: M LAB REF 20:12 | PROVIDERS: ATTEND Physician Assistant | DX: R05.9 Cough, unspecified (principal); R52 Pain, unspecified ==

== ENCOUNTER → 2022-06-16 | Outpatient (CLI) | payer MEDICARE, MEDICAID | LOC: M SOG 09:36 | PROVIDERS: ATTEND Orthopaedic Surgery | DX: M17.11 Unilateral primary osteoarthritis, right knee (principal) ==

== ENCOUNTER → 2022-06-20 | Outpatient (CLI) | payer MEDICARE, MEDICAID | LOC: M LABSMTC 12:00 | PROVIDERS: ATTEND Anesthesiology | DX: Z01.818 Encounter for other preprocedural examination (principal); Z11.52 Encounter for screening for COVID-19 ==

== ENCOUNTER → 2022-06-20 | Outpatient (CLI) | payer MEDICARE, MEDICAID ==
[~2022-06-20] MED LIST changes: +BUPIVACAINE HCL 0.25% 10ML VIAL As Ordered ONE; +BUPIVACAINE HCL 0.25% 30ML VIAL As Ordered ONE; +TRIAMCINOLONE ACETONIDE SUSP 40MG/ML 1ML VIAL As Ordered ONE; +diazePAM 5MG TABLET As Ordered ONE; +oxyCODONE 5MG TAB As Ordered ONE
== END ==
LOC: M PAIN 13:00
PROVIDERS: ATTEND Anesthesiology
DX: M79.18 Myalgia, other site (principal); E11.22 Type 2 diabetes mellitus with diabetic chronic kidney disease; N18.30 Chronic kidney disease, stage 3 unspecified; E11.3292 Type 2 diabetes mellitus with mild nonproliferative diabetic retinopathy without macular edema, left eye; F32.A Depression, unspecified; I12.9 Hypertensive chronic kidney disease with stage 1 through stage 4 chronic kidney disease, or unspecified chronic kidney disease; J45.909 Unspecified asthma, uncomplicated; F31.9 Bipolar disorder, unspecified; G47.33 Obstructive sleep apnea (adult) (pediatric); Z87.891 Personal history of nicotine dependence; Z79.4 Long term (current) use of insulin; Z79.82 Long term (current) use of aspirin; Z79.02 Long term (current) use of antithrombotics/antiplatelets; Z79.899 Other long term (current) drug therapy; Z88.8 Allergy status to other drugs, medicaments and biological substances
CPT/HCPCS: 20552; J3301

== ENCOUNTER 2022-06-23 13:49 | Outpatient (RCR) | payer MEDICARE, MEDICAID ==
[~2022-06-23 13:49] MED LIST changes: -BUPIVACAINE HCL 0.25% 10ML VIAL As Ordered ONE; -BUPIVACAINE HCL 0.25% 30ML VIAL As Ordered ONE; -TRIAMCINOLONE ACETONIDE SUSP 40MG/ML 1ML VIAL As Ordered ONE; -diazePAM 5MG TABLET As Ordered ONE; -oxyCODONE 5MG TAB As Ordered ONE
== END 2022-06-24 ==
LOC: M PT 13:49
PROVIDERS: ATTEND Orthopaedic Surgery Adult Reconstructive Orthopaedic Surgery
DX: Z47.89 Encounter for other orthopedic aftercare (principal); Z96.652 Presence of left artificial knee joint
CPT/HCPCS: 97110; G0283

== ENCOUNTER 2022-06-29 13:48 | Outpatient (RCR) | payer MEDICARE, MEDICAID | END 2022-07-24 | LOC: M PT 13:48 | PROVIDERS: ATTEND Orthopaedic Surgery Adult Reconstructive Orthopaedic Surgery | DX: Z96.652 Presence of left artificial knee joint (principal) ==

== ENCOUNTER 2022-07-13 11:47 | Day surgery (SDC) | payer MEDICARE, MEDICAID ==
[~2022-07-13] VITALS: Ht 152.4 cm; Wt 101.5 kg
[~2022-07-13 11:47] MED LIST changes: +ACETYLCHOLINE OPHTH SOLN 1% 2ML (MIOCHOL-E) As Ordered ONE; +BSS IRRIG/VANCO(10MG)/TOBRA(5MG)/EPINEPH(1:1000-0.5CC)500ML BAG-ORONLY IR ONE; +CEFUROXIME 1MG/0.1ML INTRACAMERAL INJ As Ordered ONE; +CYCLOPENTOLATE 1% OPHTH SOLN 2ML BTL OS SCH; +LIDOCAINE 1% SDV 5ML VIAL As Ordered ONE; +LIDOCAINE 3.5 % 1ML OPHTH TOPICAL GEL OU ONE; +OFLOXACIN 0.3 % (OCUFLOX) OPTH SOL 5ML OS ONE; +PHENYLEPHRINE 10% OPHTH SOL 5ML OS PRN; +PHENYLEPHRINE 2.5% OPHTH SOL 2ML OS SCH; +TROPICAMIDE 1% OPHTH SOLN 15ML OS SCH
[2022-07-13] MEDS ORDERED: INSULIN LISPRO (NovoLOG) PER UNIT SC PRN (13:40)
[2022-07-13] MEDS ORDERED: MIDAZOLAM INJ 2MG/2ML VIAL As Ordered ONE (14:03)
[2022-07-13] MEDS ORDERED: fentaNYL 100 MCG/2 ML INJECTION As Ordered ONE (14:03)
[2022-07-13 14:32] VITALS: BP 134/74
== END 2022-07-13 15:10 | disposition home or self-care (01) ==
LOC: M SDC 11:47
PROVIDERS: ATTEND Ophthalmology
DX: H25.11 Age-related nuclear cataract, right eye (principal); I10 Essential (primary) hypertension; E78.5 Hyperlipidemia, unspecified; E11.9 Type 2 diabetes mellitus without complications; K57.90 Diverticulosis of intestine, part unspecified, without perforation or abscess without bleeding; K21.9 Gastro-esophageal reflux disease without esophagitis; F41.9 Anxiety disorder, unspecified; F31.9 Bipolar disorder, unspecified; F20.9 Schizophrenia, unspecified; G43.909 Migraine, unspecified, not intractable, without status migrainosus; Z86.73 Personal history of transient ischemic attack (TIA), and cerebral infarction without residual deficits; Z79.82 Long term (current) use of aspirin; Z79.52 Long term (current) use of systemic steroids; Z79.02 Long term (current) use of antithrombotics/antiplatelets; Z79.899 Other long term (current) drug therapy; Z88.8 Allergy status to other drugs, medicaments and biological substances; Z88.6 Allergy status to analgesic agent
CPT/HCPCS: 66984; J0697; J2250; J3010; V2632

== ENCOUNTER → 2022-07-27 | Outpatient (REF) | payer MEDICARE, MEDICAID ==
[~2022-07-27] MED LIST changes: -ACETYLCHOLINE OPHTH SOLN 1% 2ML (MIOCHOL-E) As Ordered ONE; -BSS IRRIG/VANCO(10MG)/TOBRA(5MG)/EPINEPH(1:1000-0.5CC)500ML BAG-ORONLY IR ONE; -CEFUROXIME 1MG/0.1ML INTRACAMERAL INJ As Ordered ONE; -CYCLOPENTOLATE 1% OPHTH SOLN 2ML BTL OS SCH; -LIDOCAINE 1% SDV 5ML VIAL As Ordered ONE; -LIDOCAINE 3.5 % 1ML OPHTH TOPICAL GEL OU ONE; -OFLOXACIN 0.3 % (OCUFLOX) OPTH SOL 5ML OS ONE; -PHENYLEPHRINE 10% OPHTH SOL 5ML OS PRN; -PHENYLEPHRINE 2.5% OPHTH SOL 2ML OS SCH; -TROPICAMIDE 1% OPHTH SOLN 15ML OS SCH
[2022-07-27 16:16] LABS: BASO # 0.1 10^3/uL (0.0-0.2); BASO % 0.5 % (0.0-1.0); EOS # 0.3 10^3/uL (0.0-0.5); EOS % 2.4 % (0.0-3.0); HEMATOCRIT 42.2 % (36.0-47.0); HEMOGLOBIN 13.3 g/dl (12.0-15.5); LYMPH % 19.2 % (24.0-44.0); MEAN CORPUSCULAR HEMOGLOBIN 26.7 pg (27.0-33.0); MEAN CORPUSCULAR HGB CONC 31.5 g/dl (32.0-36.5); MEAN CORPUSCULAR VOLUME 84.7 fl (80.0-96.0); MONO # 0.6 10^3/uL (0.0-0.8); MONO % 5.9 % (2.0-8.0); NEUTROPHILS # 7.5 10^3/uL (1.5-8.5); NEUTROPHILS % 71.4 % (36.0-66.0); PLATELET COUNT, AUTOMATED 256 10^3/uL (150-450); RED BLOOD COUNT 4.98 10^6/uL (4.00-5.40); WHITE BLOOD COUNT 10.5 10^3/uL (4.0-10.0)
[2022-07-27 16:55] LABS: ALBUMIN 3.6 G/DL (3.2-5.2); ALKALINE PHOSPHATASE 217 U/L (46-116); ALT/SGPT 30 U/L (7.0-40); AST/SGOT 13 U/L (<34); BILIRUBIN,TOTAL 0.4 MG/DL (0.3-1.2); BLOOD UREA NITROGEN 20 MG/DL (9-23); CALCIUM LEVEL 9.5 MG/DL (8.5-10.1); CARBON DIOXIDE LEVEL 31 MMOL/L (20-31); CHLORIDE LEVEL 105 MMOL/L (98-107); CREATININE FOR GFR 0.98 MG/DL (0.55-1.30); GLOMERULAR FILTRATION RATE > 60.0 (>51); GLUCOSE, FASTING 149 MG/DL (60-100); POTASSIUM SERUM 4.7 MMOL/L (3.5-5.1); SODIUM LEVEL 144 MMOL/L (136-145); TOTAL PROTEIN 6.9 G/DL (5.7-8.2)
== END ==
LOC: M SFHCADAM 14:10
PROVIDERS: ATTEND Family Medicine
DX: R19.7 Diarrhea, unspecified (principal)

== ENCOUNTER 2022-08-03 12:56 | Outpatient (RCR) | payer MEDICAID, MEDICARE ==
[2022-08-23] MEDS ORDERED: VICT18IN SC (11:58)
[2022-08-23] MEDS ORDERED: B-12100010 PO (11:58)
[2022-08-23] MEDS ORDERED: MELA10TA2 PO (11:58)
== END 2022-08-24 ==
LOC: M PT 12:56
PROVIDERS: ATTEND Orthopaedic Surgery
DX: M17.11 Unilateral primary osteoarthritis, right knee (principal)

== ENCOUNTER → 2022-08-03 | Outpatient (REF) | payer MEDICARE, MEDICAID | LOC: M SFHCADAM 13:15 | PROVIDERS: ATTEND Family Medicine | DX: R19.7 Diarrhea, unspecified (principal) ==

== ENCOUNTER → 2022-08-10 | Outpatient (CLI) | payer MEDICARE, MEDICAID ==
[~2022-08-10] MED LIST changes: +B-12100010 PO; +MELA10TA2 PO
== END ==
LOC: M PAIN 11:30
PROVIDERS: ATTEND Anesthesiology
DX: G89.29 Other chronic pain (principal); M79.10 Myalgia, unspecified site; M79.18 Myalgia, other site; E78.5 Hyperlipidemia, unspecified; E11.3292 Type 2 diabetes mellitus with mild nonproliferative diabetic retinopathy without macular edema, left eye; F32.A Depression, unspecified; I12.9 Hypertensive chronic kidney disease with stage 1 through stage 4 chronic kidney disease, or unspecified chronic kidney disease; J45.909 Unspecified asthma, uncomplicated; A60.09 Herpesviral infection of other urogenital tract; F31.9 Bipolar disorder, unspecified; M51.34 Other intervertebral disc degeneration, thoracic region; N18.30 Chronic kidney disease, stage 3 unspecified; E11.22 Type 2 diabetes mellitus with diabetic chronic kidney disease; G47.33 Obstructive sleep apnea (adult) (pediatric); Z87.891 Personal history of nicotine dependence; Z79.4 Long term (current) use of insulin; Z79.82 Long term (current) use of aspirin; Z79.02 Long term (current) use of antithrombotics/antiplatelets; Z79.899 Other long term (current) drug therapy; Z88.8 Allergy status to other drugs, medicaments and biological substances

== ENCOUNTER → 2022-08-25 | Outpatient (REF) | payer MEDICARE, MEDICAID ==
[2022-08-25 13:45] LABS: PROTHROMBIN TIME 13.4 SECONDS (12.5-14.5)
[2022-08-25 14:13] LABS: BASO # 0.1 10^3/uL (0.0-0.2); BASO % 0.4 % (0.0-1.0); EOS # 0.2 10^3/uL (0.0-0.5); EOS % 1.3 % (0.0-3.0); HEMATOCRIT 38.8 % (36.0-47.0); HEMOGLOBIN 12.7 g/dl (12.0-15.5); LYMPH # 2.2 10^3/uL (1.5-5.0); LYMPH % 14.3 % (24.0-44.0); MEAN CORPUSCULAR HEMOGLOBIN 27.4 pg (27.0-33.0); MEAN CORPUSCULAR HGB CONC 32.7 g/dl (32.0-36.5); MEAN CORPUSCULAR VOLUME 83.8 fl (80.0-96.0); MONO # 0.9 10^3/uL (0.0-0.8); MONO % 5.6 % (2.0-8.0); NEUTROPHILS # 12.1 10^3/uL (1.5-8.5); NEUTROPHILS % 77.2 % (36.0-66.0); PLATELET COUNT, AUTOMATED 309 10^3/uL (150-450); RED BLOOD COUNT 4.63 10^6/uL (4.00-5.40); WHITE BLOOD COUNT 15.7 10^3/uL (4.0-10.0)
[2022-08-25 14:43] LABS: ALBUMIN 3.4 G/DL (3.2-5.2); BILIRUBIN,TOTAL 0.6 MG/DL (0.3-1.2); CALCIUM LEVEL 9.1 MG/DL (8.5-10.1); CREATININE FOR GFR 1.06 MG/DL (0.55-1.30); GLOMERULAR FILTRATION RATE 56.9 (>51); POTASSIUM SERUM 3.7 MMOL/L (3.5-5.1); TOTAL PROTEIN 7.1 G/DL (5.7-8.2)
== END ==
LOC: M SFHCADAM 11:15
PROVIDERS: ATTEND Physician Assistant
DX: Z01.818 Encounter for other preprocedural examination (principal)

== ENCOUNTER → 2022-08-26 | Outpatient (CLI) | payer MEDICARE, MEDICAID | LOC: M RAD 10:32 | PROVIDERS: ATTEND Orthopaedic Surgery | DX: M17.11 Unilateral primary osteoarthritis, right knee (principal) ==

== ENCOUNTER → 2022-08-29 | Outpatient (REF) | payer MEDICARE, MEDICAID ==
[2022-08-29 18:30] LABS: APPEARANCE, URINE MANUAL TURBID (CLEAR); COLOR, URINE MANUAL YELLOW (YELLOW)
[2022-08-29 18:31] LABS: BILIRUBIN, URINE MANUAL NEGATIVE (NEGATIVE); BLOOD URINE MANUAL NEGATIVE (NEGATIVE); GLUCOSE, URINE (UA) MANUAL 2+(250 MG/DL) mg/dL (NEGATIVE); KETONE, URINE MANUAL NEGATIVE (NEGATIVE); LEUKOCYTE ESTERASE, URINE MAN POSITIVE (NEGATIVE); NITRITE, URINE MANUAL POSITIVE (NEGATIVE); PH,URINE MAN 5.5 UNITS (5.0 - 7.0); PROTEIN, URINE MANUAL TRACE mg/dL (NEGATIVE); SPECIFIC GRAVITY,URINE MANUAL 1.025 (1.002-1.035); UROBILINOGEN, URINE MANUAL NORMAL (NORMAL)
[2022-08-29 19:19] LABS: BACTERIA, URINE LARGE AMOUNT; CALCIUM OXALATE CRYSTALS,URINE MOD AMOUNT /hpf; HYALINE CAST, URINE NONE SEEN /lpf (0-1); RBC, URINE 0-1 /hpf (0-3); SQUAMOUS EPITHELIAL CELL URINE LARGE AMOUNT /hpf (SMALL AMT); WBC, URINE 40-50 /hpf (0-3)
[2022-08-29 19:20] LABS: AMORPHOUS SEDIMENT, URINE LARGE AMOUNT (NEGATIVE)
== END ==
LOC: M SFHCADAM 11:49
PROVIDERS: ATTEND Physician Assistant
DX: D72.829 Elevated white blood cell count, unspecified (principal); Z95.0 Presence of cardiac pacemaker

== ENCOUNTER → 2022-08-29 | Outpatient (CLI) | payer MEDICARE, MEDICAID | LOC: M ADAMS 12:05 | PROVIDERS: ATTEND Physician Assistant | DX: D72.829 Elevated white blood cell count, unspecified (principal); Z95.0 Presence of cardiac pacemaker ==

== ENCOUNTER → 2022-08-30 | Outpatient (REF) | payer MEDICARE, MEDICAID ==
[2022-08-30 16:59] LABS: BASO # 0.1 10^3/uL (0.0-0.2); BASO % 0.5 % (0.0-1.0); EOS # 0.2 10^3/uL (0.0-0.5); EOS % 2.2 % (0.0-3.0); HEMATOCRIT 38.9 % (36.0-47.0); HEMOGLOBIN 12.4 g/dl (12.0-15.5); LYMPH # 1.3 10^3/uL (1.5-5.0); LYMPH % 13.7 % (24.0-44.0); MEAN CORPUSCULAR HEMOGLOBIN 27.3 pg (27.0-33.0); MEAN CORPUSCULAR HGB CONC 31.9 g/dl (32.0-36.5); MEAN CORPUSCULAR VOLUME 85.5 fl (80.0-96.0); MONO # 0.4 10^3/uL (0.0-0.8); MONO % 4.2 % (2.0-8.0); NEUTROPHILS # 7.7 10^3/uL (1.5-8.5); NEUTROPHILS % 78.5 % (36.0-66.0); PLATELET COUNT, AUTOMATED 283 10^3/uL (150-450); RED BLOOD COUNT 4.55 10^6/uL (4.00-5.40); WHITE BLOOD COUNT 9.8 10^3/uL (4.0-10.0)
== END ==
LOC: M SFHCADAM 11:55
PROVIDERS: ATTEND Physician Assistant
DX: D72.829 Elevated white blood cell count, unspecified (principal)

== ENCOUNTER → 2022-09-14 | Outpatient (CLI) | payer MEDICARE, MEDICAID ==
[~2022-09-14] MED LIST changes: -K-TA10TA2 PO; +POTA-165 PO; -POTA10CA33 PO; +POTA10CA60 PO
== END ==
LOC: M SOG 14:08
PROVIDERS: ATTEND Orthopaedic Surgery
DX: M17.11 Unilateral primary osteoarthritis, right knee (principal); M25.561 Pain in right knee

== ENCOUNTER → 2022-09-21 | Outpatient (REF) | payer MEDICARE, MEDICAID, OTHER ==
[2022-09-22 12:09] LABS: APPEARANCE, URINE CLOUDY (CLEAR); BACTERIA, URINE AUTO 1+ (NEGATIVE); BILIRUBIN, URINE AUTO NEGATIVE (NEGATIVE); BLOOD, URINE BLOOD NEGATIVE (NEGATIVE); CALCIUM OXALATE CRYSTALS SMALL; COLOR, URINE AMBER (YELLOW); GLUCOSE, URINE (UA) AUTO NEGATIVE (NEGATIVE); KETONE, URINE AUTO NEGATIVE (NEGATIVE); LEUKOCYTE ESTERASE, URINE AUTO 2+ (NEGATIVE); MUCUS, URINE SMALL (NEGATIVE); NITRITE, URINE AUTO NEGATIVE (NEGATIVE); PROTEIN, URINE AUTO NEGATIVE (NEGATIVE); RBC, URINE AUTO 3 /HPF (0-3); SPECIFIC GRAVITY URINE AUTO 1.019 (1.002-1.035); SQUAMOUS EPITHELIAL CELL UR AU 1 /HPF (0-6); UROBILINOGEN, URINE AUTO 0.2 mg/dL (0.0-2.0); WBC, URINE AUTO 148 /HPF (0-3)
== END ==
LOC: M LAB REF 10:02
PROVIDERS: ATTEND Physician Assistant Medical
DX: N39.0 Urinary tract infection, site not specified (principal)

== ENCOUNTER → 2022-10-19 | Outpatient (CLI) | payer MEDICARE, MEDICAID ==
[~2022-10-19] MED LIST changes: -LIDO1CRE42 EX; +LIDO30CR18 EX
== END ==
LOC: M PAIN 13:30
PROVIDERS: ATTEND Anesthesiology
DX: M79.10 Myalgia, unspecified site (principal); M79.18 Myalgia, other site; G89.29 Other chronic pain; E78.5 Hyperlipidemia, unspecified; E11.3292 Type 2 diabetes mellitus with mild nonproliferative diabetic retinopathy without macular edema, left eye; F32.A Depression, unspecified; I12.9 Hypertensive chronic kidney disease with stage 1 through stage 4 chronic kidney disease, or unspecified chronic kidney disease; A60.09 Herpesviral infection of other urogenital tract; F31.9 Bipolar disorder, unspecified; M47.814 Spondylosis without myelopathy or radiculopathy, thoracic region; M51.26 Other intervertebral disc displacement, lumbar region; N18.30 Chronic kidney disease, stage 3 unspecified; G47.33 Obstructive sleep apnea (adult) (pediatric); Z95.0 Presence of cardiac pacemaker; Z86.73 Personal history of transient ischemic attack (TIA), and cerebral infarction without residual deficits; Z87.891 Personal history of nicotine dependence; Z79.4 Long term (current) use of insulin; Z79.82 Long term (current) use of aspirin; Z79.02 Long term (current) use of antithrombotics/antiplatelets; Z79.899 Other long term (current) drug therapy; Z88.8 Allergy status to other drugs, medicaments and biological substances; J30.1 Allergic rhinitis due to pollen

== ENCOUNTER → 2022-10-20 | Outpatient (REF) | payer MEDICARE, MEDICAID ==
[~2022-10-20] MED LIST changes: +DICL100G10 TOP; -DICL1GEL3 TOP
[2022-10-20 13:14] LABS: HEMATOCRIT 38.8 % (36.0-47.0); HEMOGLOBIN 12.4 g/dl (12.0-15.5); MEAN CORPUSCULAR HEMOGLOBIN 27.6 pg (27.0-33.0); MEAN CORPUSCULAR VOLUME 86.4 fl (80.0-96.0); PLATELET COUNT, AUTOMATED 253 10^3/uL (150-450); RED BLOOD COUNT 4.49 10^6/uL (4.00-5.40)
[2022-10-20 13:48] LABS: BLOOD UREA NITROGEN 21 MG/DL (9-23); CALCIUM LEVEL 9.5 MG/DL (8.5-10.1); CARBON DIOXIDE LEVEL 29 MMOL/L (20-31); CHLORIDE LEVEL 104 MMOL/L (98-107); CREATININE FOR GFR 0.88 MG/DL (0.55-1.30); GLOMERULAR FILTRATION RATE > 60.0 (>51); GLUCOSE, FASTING 179 MG/DL (60-100); POTASSIUM SERUM 3.9 MMOL/L (3.5-5.1); SODIUM LEVEL 140 MMOL/L (136-145)
== END ==
LOC: M SFHCADAM 11:20
PROVIDERS: ATTEND Physician Assistant
DX: E11.22 Type 2 diabetes mellitus with diabetic chronic kidney disease (principal)

== ENCOUNTER 2022-11-08 08:54 | Observation (INO) | payer MEDICARE, MEDICAID ==
[~2022-11-08] VITALS: Ht 152.4 cm; Wt 102.1 kg
[~2022-11-08 08:54] MED LIST changes: -FLON1SPR; +FLON1SPR NARES; +HYDROmorphone HCL 2MG/ML 1ML VIAL As Ordered ONE; +KETOROLAC 60MG 2ML VIAL As Ordered ONE; +LIDOCAINE 2% 100MG/5ML SDV (FOR ANES.) As Ordered ONE; +MIDAZOLAM INJ 2MG/2ML VIAL As Ordered ONE; +ONDANSETRON 4MG 2ML VIAL As Ordered ONE; +ROCURONIUM BROMIDE 50MG/5ML VIAL As Ordered ONE; +ROPIVA 100MG/KETOR 15MG/EPINEPHRINE 0.3MG IN NS 50ML SYRINGE PA ONE; +TRANEXAMIC ACID 100 MG/ML 10ML VIAL IV ONE; +ceFAZolin SOD 2 GM in IV 1 EA IV ONE; +fentaNYL 100 MCG/2 ML INJECTION As Ordered ONE; +oxyCODONE 5MG TAB PO ONE; +propofoL 200 MG/20 ML VIAL As Ordered ONE
[2022-11-08] MEDS ORDERED: INSULIN LISPRO (NovoLOG) PER UNIT SC PRN ×2 (09:45→14:30)
[2022-11-08] MEDS ORDERED: XIID5DRO OU (10:02)
[2022-11-08] MEDS ORDERED: ZONI25CA13 PO (10:02)
[2022-11-08] MEDS ORDERED: NYST-13 TOP (10:02)
[2022-11-08] MEDS ORDERED: FARX1TAB5 PO (10:02)
[2022-11-08] MEDS ORDERED: DICL100G10 TOP (10:02)
[2022-11-08] MEDS ORDERED: HOME MED LIST COMPLETE! XX SCH (10:05)
[2022-11-08] MEDS ORDERED: TRANEXAMIC ACID 100 MG/ML 10ML VIAL As Ordered ONE (10:29)
[2022-11-08] MEDS ORDERED: ACETAMINOPHEN 1000MG 100ML IV BAG As Ordered ONE (10:34)
[2022-11-08] MEDS ORDERED: VANCOMYCIN 1000MG/20ML VIAL As Ordered ONE (10:36)
[2022-11-08] MEDS ORDERED: ROPIvacaine 0.5% 30ML VIAL PN ONE (11:10)
[2022-11-08] MEDS ORDERED: MIDAZOLAM INJ 2MG/2ML VIAL IV PRN (11:10)
[2022-11-08] MEDS ORDERED: EPINEPHrine INJ 1 MG/ML 1ML AMP PN ONE (11:10)
[2022-11-08] MEDS ORDERED: dexAMETHasone 10MG/1ML VIAL PRES.FREE PN ONE (11:10)
[2022-11-08] MEDS ORDERED: LIDOCAINE 1% SDV 5ML VIAL PN ONE (11:10)
[2022-11-08] MEDS ORDERED: fentaNYL 100 MCG/2 ML INJECTION IV PRN ×2 (11:10→14:30)
[2022-11-08] MEDS ORDERED: ROCURONIUM BROMIDE 50MG/5ML VIAL As Ordered ONE (12:50)
[2022-11-08] MEDS ORDERED: PHENYLephrine 500MCG 5ML (100MCG/ML) SYRINGE As Ordered ONE (12:55)
[2022-11-08] MEDS ORDERED: LABETALOL 100MG/20ML VIAL As Ordered ONE (13:00)
[2022-11-08] MEDS ORDERED: SUGAMMADEX SODIUM 500 MG/5 ML VIAL (BRIDION) As Ordered ONE (13:26)
[2022-11-08] MEDS ORDERED: fentaNYL 100 MCG/2 ML INJECTION As Ordered ONE (13:37)
[2022-11-08] MEDS ORDERED: propofoL 200 MG/20 ML VIAL As Ordered ONE (14:19)
[2022-11-08] MEDS ORDERED: MEPERIDINE 25 MG/ML 1ML VIAL IV PRN (14:30)
[2022-11-08] MEDS ORDERED: METOCLOPRAMIDE INJ 10MG/2ML VIAL IV PRN (14:30)
[2022-11-08] MEDS ORDERED: HYDROMORPHONE HCL 0.5 MG/ 0.5 ML SYRINGE IV PRN (14:30)
[2022-11-08] MEDS ORDERED: ONDANSETRON 4MG 2ML VIAL IV PRN ×2 (14:30→14:40)
[2022-11-08] MEDS ORDERED: oxyCODONE 5MG TAB PO PRN ×2 (14:30→14:40)
[2022-11-08] MEDS ORDERED: LR 1,000 ML IV SCH ×2 (14:30→14:40)
[2022-11-08] MEDS ORDERED: diphenhydrAMINE 50MG/ML VIAL IV PRN (14:30)
[2022-11-08] MEDS ORDERED: DEXTROSE 50% 50ML SYRINGE IV PRN (14:40)
[2022-11-08] MEDS ORDERED: SENNA 8.6 MG TAB (SENOKOT) PO PRN (14:40)
[2022-11-08] MEDS ORDERED: GLUCOSE 4GM CHEW TABLET PO PRN (14:40)
[2022-11-08] MEDS ORDERED: GLUCAGON INJ 1MG VIAL SC PRN (14:40)
[2022-11-08] MEDS ORDERED: CETIRIZINE (ZyrTEC) 10 MG TAB PO PRN (14:50)
[2022-11-08] MEDS ORDERED: ALBUTEROL 90 MCG/ACT 8GM HFA INHALER INH PRN (14:50)
[2022-11-08] MEDS ORDERED: ALBUTEROL SULFATE 2.5MG/0.5ML INH NEB SOLN INH PRN (14:50)
[2022-11-08 15:45] VITALS: BP 116/69; TEMP 97.5; O2SAT 93
[2022-11-08 16:15] VITALS: BP 109/67; TEMP 97.5; O2SAT 92
[2022-11-08 17:15] VITALS: BP 120/65; TEMP 97.7; O2SAT 94
[2022-11-08] MEDS: INSULIN LISPRO (NovoLOG) PER UNIT SC SCH (17:16)
[2022-11-08] MEDS: ACETAMINOPHEN TAB 650MG DOSE (2X325MG) PO SCH ×2 (17:16→23:40)
[2022-11-08 18:15] VITALS: BP 118/64; TEMP 97.5; O2SAT 92
[2022-11-08 19:15] VITALS: BP 118/65; TEMP 97.9; O2SAT 94
[2022-11-08 20:15] VITALS: BP 119/65; TEMP 97.9; O2SAT 94
[2022-11-08] MEDS ORDERED: INSULIN LISPRO (NovoLOG) PER UNIT SC SCH (21:00)
[2022-11-08] MEDS ORDERED: ZONISAMIDE 25MG CAP (ZONEGRAN) PO SCH (21:00)
[2022-11-08] MEDS: FLUTICASONE PROP 0.05% NASAL SPRAY 16 GM (FLONASE) NARES SCH (21:00)
[2022-11-08] MEDS: GABAPENTIN 100 MG CAP PO SCH (21:05)
[2022-11-08] MEDS: ceFAZolin SOD 2 GM in IV 1 EA IV SCH (21:05)
[2022-11-08] MEDS: oxyCODONE 5MG TAB PO PRN (21:06)
[2022-11-08] MEDS: DOCUSATE SODIUM 100MG CAPSULE PO SCH (21:07)
[2022-11-08] MEDS: NYSTATIN CREAM 15GM TOP SCH (22:21)
[2022-11-09 02:14] VITALS: BP 105/57; TEMP 97.2; O2SAT 92
[2022-11-09] MEDS: oxyCODONE 5MG TAB PO PRN ×3 (03:29→14:45)
[2022-11-09] MEDS: ceFAZolin SOD 2 GM in IV 1 EA IV SCH (03:29)
[2022-11-09] MEDS: ACETAMINOPHEN TAB 650MG DOSE (2X325MG) PO SCH ×2 (05:00→12:10)
[2022-11-09 06:00] VITALS: BP 132/71; TEMP 97.5; O2SAT 94
[2022-11-09 06:38] LABS: HEMATOCRIT 31.1 % (36.0-47.0); HEMOGLOBIN 9.9 g/dl (12.0-15.5); MEAN CORPUSCULAR HGB CONC 31.8 g/dl (32.0-36.5); MEAN CORPUSCULAR VOLUME 84.7 fl (80.0-96.0); PLATELET COUNT, AUTOMATED 231 10^3/uL (150-450); RED BLOOD COUNT 3.67 10^6/uL (4.00-5.40); WHITE BLOOD COUNT 15.6 10^3/uL (4.0-10.0)
[2022-11-09 06:51] LABS: INR 1.11
[2022-11-09 07:08] LABS: ALBUMIN 2.8 G/DL (3.2-5.2); BLOOD UREA NITROGEN 25 MG/DL (9-23); CALCIUM LEVEL 8.5 MG/DL (8.5-10.1); CARBON DIOXIDE LEVEL 21 MMOL/L (20-31); CHLORIDE LEVEL 104 MMOL/L (98-107); CREATININE FOR GFR 0.96 MG/DL (0.55-1.30); GLOMERULAR FILTRATION RATE > 60.0 (>51); GLUCOSE, FASTING 286 MG/DL (60-100); PHOSPHORUS LEVEL 4.4 MG/DL (2.5-4.9); POTASSIUM SERUM 4.7 MMOL/L (3.5-5.1); SODIUM LEVEL 134 MMOL/L (136-145)
[2022-11-09] MEDS ORDERED: ATORVASTATIN 20 MG TAB PO SCH (09:00)
[2022-11-09] MEDS ORDERED: VENLAFAXINE **XR** 75MG CAPSULE PO SCH (09:00)
[2022-11-09] MEDS ORDERED: METOPROLOL SUCC (TopROL XL) 100MG *XL* TAB PO SCH (09:00)
[2022-11-09] MEDS ORDERED: FUROSEMIDE 20 MG TAB PO SCH (09:00)
[2022-11-09] MEDS ORDERED: ASPIRIN 81MG ENTERIC TABLET PO SCH (09:00)
[2022-11-09] MEDS ORDERED: MAGNESIUM OXIDE 400MG TAB (MAG-OX) PO SCH (09:00)
[2022-11-09] MEDS ORDERED: RIVAROXABAN 10MG TAB (XARELTO) PO SCH (09:00)
[2022-11-09] MEDS ORDERED: CLOPIDOGREL 75 MG TAB PO SCH (09:00)
[2022-11-09] MEDS ORDERED: ZONISAMIDE 25MG CAP (ZONEGRAN) PO SCH (09:00)
[2022-11-09] MEDS ORDERED: EZETIMIBE 10MG TABLET (ZETIA) PO SCH (09:00)
[2022-11-09] MEDS ORDERED: CYANOCOBALAMIN 500 MCG TAB PO SCH (09:00)
[2022-11-09 09:08] VITALS: BP 132/71
[2022-11-09] MEDS: DOCUSATE SODIUM 100MG CAPSULE PO SCH (09:08)
[2022-11-09] MEDS: INSULIN LISPRO (NovoLOG) PER UNIT SC SCH ×2 (09:08→12:09)
[2022-11-09] MEDS: GABAPENTIN 100 MG CAP PO SCH (09:09)
[2022-11-09] MEDS: NYSTATIN CREAM 15GM TOP SCH (09:10)
[2022-11-09] MEDS: FLUTICASONE PROP 0.05% NASAL SPRAY 16 GM (FLONASE) NARES SCH (09:12)
[2022-11-09 10:00] VITALS: BP 131/72; TEMP 97.3; O2SAT 94
[2022-11-09] MEDS ORDERED: OXYC1TAB23 PO (14:11)
== END 2022-11-09 15:35 | disposition home or self-care (01) ==
LOC: M SDC 08:54 → M RR INP 08:55 → M MS5PR 15:30
PROVIDERS: ADMIT Orthopaedic Surgery; ATTEND Orthopaedic Surgery
DX: M17.11 Unilateral primary osteoarthritis, right knee (principal); I12.9 Hypertensive chronic kidney disease with stage 1 through stage 4 chronic kidney disease, or unspecified chronic kidney disease; E78.00 Pure hypercholesterolemia, unspecified; E11.22 Type 2 diabetes mellitus with diabetic chronic kidney disease; K21.9 Gastro-esophageal reflux disease without esophagitis; I69.354 Hemiplegia and hemiparesis following cerebral infarction affecting left non-dominant side; J45.909 Unspecified asthma, uncomplicated; G47.30 Sleep apnea, unspecified; N18.4 Chronic kidney disease, stage 4 (severe); R32 Unspecified urinary incontinence; F41.9 Anxiety disorder, unspecified; F20.9 Schizophrenia, unspecified; Z88.8 Allergy status to other drugs, medicaments and biological substances; Z79.899 Other long term (current) drug therapy; Z79.82 Long term (current) use of aspirin; Z79.01 Long term (current) use of anticoagulants; Z79.84 Long term (current) use of oral hypoglycemic drugs
CPT/HCPCS: 27447; 36415; 73560; 80069; 85027; 85610; 87635; 88300; 96374; 96376; 97110; 97116; 97161; 97165; 97530; 97535; C1776; C9290; G0378; J0131; J0665; J0690; J1100; J1170; J1815; J1920; J2250; J2371; J2405; J3010

== ENCOUNTER 2022-11-11 20:06 | Emergency (ER) | payer MEDICARE, MEDICAID ==
[~2022-11-11 20:06] MED LIST changes: +FARX1TAB5 PO; -HYDROmorphone HCL 2MG/ML 1ML VIAL As Ordered ONE; -KETOROLAC 60MG 2ML VIAL As Ordered ONE; -LIDOCAINE 2% 100MG/5ML SDV (FOR ANES.) As Ordered ONE; -MIDAZOLAM INJ 2MG/2ML VIAL As Ordered ONE; +NYST-13 TOP; -ONDANSETRON 4MG 2ML VIAL As Ordered ONE; +OXYC1TAB23 PO; -ROCURONIUM BROMIDE 50MG/5ML VIAL As Ordered ONE; -ROPIVA 100MG/KETOR 15MG/EPINEPHRINE 0.3MG IN NS 50ML SYRINGE PA ONE; -TRANEXAMIC ACID 100 MG/ML 10ML VIAL IV ONE; +XIID5DRO OU; -ceFAZolin SOD 2 GM in IV 1 EA IV ONE; -fentaNYL 100 MCG/2 ML INJECTION As Ordered ONE; -oxyCODONE 5MG TAB PO ONE; -propofoL 200 MG/20 ML VIAL As Ordered ONE
[2022-11-12] MEDS ORDERED: MORPHINE 4 MG/ML 1ML VIAL IV ONE
[2022-11-12 00:52] LABS: BASO % 0.3 % (0.0-1.0); EOS # 0.4 10^3/uL (0.0-0.5); HEMATOCRIT 32.9 % (36.0-47.0); HEMOGLOBIN 10.6 g/dl (12.0-15.5); LYMPH # 1.7 10^3/uL (1.5-5.0); LYMPH % 13.3 % (24.0-44.0); MEAN CORPUSCULAR HEMOGLOBIN 27.2 pg (27.0-33.0); MEAN CORPUSCULAR HGB CONC 32.2 g/dl (32.0-36.5); MEAN CORPUSCULAR VOLUME 84.6 fl (80.0-96.0); MONO # 0.8 10^3/uL (0.0-0.8); MONO % 6.6 % (2.0-8.0); NEUTROPHILS # 9.5 10^3/uL (1.5-8.5); NEUTROPHILS % 75.8 % (36.0-66.0); PLATELET COUNT, AUTOMATED 274 10^3/uL (150-450); RED BLOOD COUNT 3.89 10^6/uL (4.00-5.40); WHITE BLOOD COUNT 12.5 10^3/uL (4.0-10.0)
[2022-11-12 01:00] LABS: ERYTHROCYTE SEDIMENTATION RATE 74 mm/hr (0-30)
[2022-11-12 01:26] LABS: ALBUMIN 3.1 G/DL (3.2-5.2); ALKALINE PHOSPHATASE 166 U/L (46-116); ALT/SGPT < 9 U/L (7.0-40); AST/SGOT < 8 U/L (<34); BILIRUBIN,DIRECT 0.2 MG/DL (<0.4); BILIRUBIN,TOTAL 0.5 MG/DL (0.3-1.2); BLOOD UREA NITROGEN 18 MG/DL (9-23); CALCIUM LEVEL 8.8 MG/DL (8.5-10.1); CARBON DIOXIDE LEVEL 28 MMOL/L (20-31); CHLORIDE LEVEL 104 MMOL/L (98-107); CREATININE FOR GFR 0.98 MG/DL (0.55-1.30); GLOMERULAR FILTRATION RATE > 60.0 (>51); GLUCOSE, FASTING 100 MG/DL (60-100); POTASSIUM SERUM 3.5 MMOL/L (3.5-5.1); SODIUM LEVEL 139 MMOL/L (136-145); TOTAL PROTEIN 6.8 G/DL (5.7-8.2)
[2022-11-12] MEDS ORDERED: AUGMENTIN 875 MG TAB PO ONE (01:35)
[2022-11-12] MEDS ORDERED: AMOX875T2 PO (01:35)
[2022-11-12] MEDS ORDERED: DIFL150T PO (01:43)
[2022-11-12 01:56] VITALS: BP 158/79; TEMP 97.6; O2SAT 96
== END 2022-11-12 01:57 | disposition home or self-care (01) ==
LOC: M ED 20:06
DX: H66.91 Otitis media, unspecified, right ear (principal); G89.18 Other acute postprocedural pain; E11.9 Type 2 diabetes mellitus without complications; E78.5 Hyperlipidemia, unspecified; I12.9 Hypertensive chronic kidney disease with stage 1 through stage 4 chronic kidney disease, or unspecified chronic kidney disease; Z86.73 Personal history of transient ischemic attack (TIA), and cerebral infarction without residual deficits; G43.909 Migraine, unspecified, not intractable, without status migrainosus; M54.9 Dorsalgia, unspecified; J45.909 Unspecified asthma, uncomplicated; E11.319 Type 2 diabetes mellitus with unspecified diabetic retinopathy without macular edema; N18.30 Chronic kidney disease, stage 3 unspecified; F20.9 Schizophrenia, unspecified; F41.9 Anxiety disorder, unspecified; F32.A Depression, unspecified; Z88.8 Allergy status to other drugs, medicaments and biological substances; Z88.6 Allergy status to analgesic agent; Z79.899 Other long term (current) drug therapy; Z79.51 Long term (current) use of inhaled steroids; Z79.82 Long term (current) use of aspirin; Z79.4 Long term (current) use of insulin

== ENCOUNTER → 2022-11-21 | Outpatient (CLI) | payer MEDICARE, MEDICAID ==
[~2022-11-21] MED LIST changes: +AMOX875T2 PO; +DIFL150T PO
== END ==
LOC: M SOG 07:55
PROVIDERS: ATTEND Orthopaedic Surgery
DX: Z47.1 Aftercare following joint replacement surgery (principal); Z96.651 Presence of right artificial knee joint

== ENCOUNTER → 2022-12-01 | Outpatient (CLI) | payer MEDICARE, MEDICAID ==
[~2022-12-01] MED LIST changes: +EZET10TA58 PO; -ZETI10TA16 PO
[2022-12-01 10:40] LABS: BLOOD UREA NITROGEN 20 MG/DL (9-23); CALCIUM LEVEL 9.6 MG/DL (8.5-10.1); CARBON DIOXIDE LEVEL 23 MMOL/L (20-31); CHLORIDE LEVEL 104 MMOL/L (98-107); CREATININE FOR GFR 0.92 MG/DL (0.55-1.30); GLOMERULAR FILTRATION RATE > 60.0 (>51); GLUCOSE, FASTING 291 MG/DL (60-100); POTASSIUM SERUM 4.2 MMOL/L (3.5-5.1); SODIUM LEVEL 139 MMOL/L (136-145)
== END ==
LOC: M LAB 09:25
PROVIDERS: ATTEND Nurse Practitioner Family
DX: E11.22 Type 2 diabetes mellitus with diabetic chronic kidney disease (principal)

== ENCOUNTER → 2022-12-14 | Outpatient (REF) | payer MEDICARE, MEDICAID ==
[2022-12-14 17:04] LABS: APPEARANCE, URINE CLOUDY (CLEAR); BACTERIA, URINE AUTO 1+ (NEGATIVE); BILIRUBIN, URINE AUTO NEGATIVE (NEGATIVE); BLOOD, URINE BLOOD 1+ (NEGATIVE); COLOR, URINE YELLOW (YELLOW); GLUCOSE, URINE (UA) AUTO 3+ mg/dL (NEGATIVE); KETONE, URINE AUTO NEGATIVE (NEGATIVE); LEUKOCYTE ESTERASE, URINE AUTO 3+ (NEGATIVE); NITRITE, URINE AUTO NEGATIVE (NEGATIVE); PROTEIN, URINE AUTO 1+ mg/dL (NEGATIVE); RBC, URINE AUTO 4 /HPF (0-3); SPECIFIC GRAVITY URINE AUTO 1.032 (1.002-1.035); SQUAMOUS EPITHELIAL CELL UR AU 3 /HPF (0-6); UROBILINOGEN, URINE AUTO 0.2 mg/dL (0.0-2.0); WBC, URINE AUTO 144 /HPF (0-3)
== END ==
LOC: M LAB REF 16:30
PROVIDERS: ATTEND Physician Assistant
DX: N39.0 Urinary tract infection, site not specified (principal)

== ENCOUNTER → 2022-12-22 | Outpatient (CLI) | payer MEDICARE, MEDICAID | LOC: M PAIN 11:30 | PROVIDERS: ATTEND Nurse Practitioner Family | DX: M79.18 Myalgia, other site (principal); Z79.891 Long term (current) use of opiate analgesic; M46.1 Sacroiliitis, not elsewhere classified; G89.29 Other chronic pain; E78.5 Hyperlipidemia, unspecified; F32.A Depression, unspecified; I12.9 Hypertensive chronic kidney disease with stage 1 through stage 4 chronic kidney disease, or unspecified chronic kidney disease; J45.909 Unspecified asthma, uncomplicated; A60.09 Herpesviral infection of other urogenital tract; F31.9 Bipolar disorder, unspecified; M47.814 Spondylosis without myelopathy or radiculopathy, thoracic region; N18.30 Chronic kidney disease, stage 3 unspecified; G47.33 Obstructive sleep apnea (adult) (pediatric); Z86.16 Personal history of COVID-19; Z87.891 Personal history of nicotine dependence; E11.22 Type 2 diabetes mellitus with diabetic chronic kidney disease; Z79.4 Long term (current) use of insulin; Z79.82 Long term (current) use of aspirin; Z79.899 Other long term (current) drug therapy; Z79.02 Long term (current) use of antithrombotics/antiplatelets; Z88.8 Allergy status to other drugs, medicaments and biological substances ==

== ENCOUNTER → 2023-01-05 | Outpatient (CLI) | payer MEDICARE, MEDICAID ==
[~2023-01-05] MED LIST changes: -OXYB5TAB10 PO; +OXYB5TAB11 PO
== END ==
LOC: M WHC 13:17 → EEVIPCON 01-16 11:00
PROVIDERS: ATTEND Nurse Practitioner Family
DX: Z12.31 Encounter for screening mammogram for malignant neoplasm of breast (principal)

== ENCOUNTER → 2023-01-05 | Outpatient (REF) | payer MEDICARE, MEDICAID | LOC: M SFHCWAGY 17:54 | PROVIDERS: ATTEND Nurse Practitioner Family | DX: Z12.4 Encounter for screening for malignant neoplasm of cervix (principal) | CPT/HCPCS: 87624; G0123 ==

== ENCOUNTER → 2023-01-23 | Outpatient (CLI) | payer MEDICARE, MEDICAID | LOC: M SOG 07:54 | PROVIDERS: ATTEND Orthopaedic Surgery | DX: Z96.651 Presence of right artificial knee joint (principal) ==

== ENCOUNTER 2023-02-19 16:29 | Emergency (ER) | payer MEDICARE, MEDICAID ==
[~2023-02-19] VITALS: Ht 152.4 cm; Wt 100.0 kg
[2023-02-19] MEDS ORDERED: TRAM50TA2 (16:54)
[2023-02-19 17:13] LABS: VENOUS BASE EXCESS -0.7 (-2.0-2.0); VENOUS HCO3 25.7 MMOL/L (23.0-27.0); VENOUS O2 SATURATION 58.9 % (60.0-80.0); VENOUS PARTIAL PRESSURE CO2 49.5 mmHg (38.0-50.0); VENOUS PARTIAL PRESSURE O2 32.3 mmHg (30.0-50.0); VENOUS PH 7.334 UNITS (7.330-7.430); VENOUS STANDARD HCO3 23.1 MMOL/L; VENOUS TOTAL CO2 27.3 MMOL/L (24.0-28.0)
[2023-02-19 17:14] LABS: BASO % 0.4 % (0.0-1.0); EOS # 0.3 10^3/uL (0.0-0.5); HEMATOCRIT 38.6 % (36.0-47.0); HEMOGLOBIN 12.3 g/dl (12.0-15.5); LYMPH # 1.7 10^3/uL (1.5-5.0); LYMPH % 16.5 % (24.0-44.0); MEAN CORPUSCULAR HGB CONC 31.9 g/dl (32.0-36.5); MEAN CORPUSCULAR VOLUME 81.6 fl (80.0-96.0); MONO # 0.5 10^3/uL (0.0-0.8); MONO % 4.6 % (2.0-8.0); NEUTROPHILS # 7.5 10^3/uL (1.5-8.5); NEUTROPHILS % 75.1 % (36.0-66.0); PLATELET COUNT, AUTOMATED 241 10^3/uL (150-450); RED BLOOD COUNT 4.73 10^6/uL (4.00-5.40)
[2023-02-19 17:22] LABS: ERYTHROCYTE SEDIMENTATION RATE 35 mm/hr (0-30)
[2023-02-19 17:32] LABS: CK-MB VALUE MASS < 1.0 NG/ML (<3.6); LIPASE 51 U/L (12-53); OSMOLALITY SERUM 309 MOSM/KG (275-295)
[2023-02-19 17:34] LABS: CPK CREATINE PHOSPHOKINASE 27 U/L (34-145)
[2023-02-19 17:35] LABS: ALBUMIN 3.2 G/DL (3.2-5.2); ALKALINE PHOSPHATASE 213 U/L (46-116); ALT/SGPT 12 U/L (7.0-40); AST/SGOT 10 U/L (<34); BILIRUBIN,DIRECT < 0.1 MG/DL (<0.4); BILIRUBIN,TOTAL 0.3 MG/DL (0.3-1.2); BLOOD UREA NITROGEN 27 MG/DL (9-23); CALCIUM LEVEL 8.9 MG/DL (8.5-10.1); CARBON DIOXIDE LEVEL 28 MMOL/L (20-31); CHLORIDE LEVEL 101 MMOL/L (98-107); CREATININE FOR GFR 1.15 MG/DL (0.55-1.30); GLOMERULAR FILTRATION RATE 51.6 (>51); GLUCOSE, FASTING 296 MG/DL (60-100); POTASSIUM SERUM 3.9 MMOL/L (3.5-5.1); SODIUM LEVEL 139 MMOL/L (136-145); TOTAL PROTEIN 6.8 G/DL (5.7-8.2)
[2023-02-19 17:36] LABS: ACETONE/KETONE 0.11 MMOL/L (0.02-0.27); THYROID STIMULATING HORMONE 1.999 uIU/ML (0.55-4.78)
[2023-02-19 17:37] LABS: FREE T4 0.96 NG/DL (0.89-1.76)
[2023-02-19 17:37] LABS: INR 1.01; PARTIAL THROMBOPLASTIN TIME 23.8 SECONDS (24.8-34.2)
[2023-02-19 18:23] LABS: CK-MB VALUE MASS < 1.0 NG/ML (<3.6)
[2023-02-19 18:30] LABS: CPK CREATINE PHOSPHOKINASE 28 U/L (34-145); MB/CK RELATIVE INDEX 3.57 (< OR =4)
[2023-02-19] MEDS ORDERED: CEFDINIR 300 MG CAP (OMNICEF) PO ONE (19:10)
[2023-02-19] MEDS ORDERED: CEFD300C PO (19:10)
[2023-02-19 19:30] VITALS: BP 124/65; TEMP 97.9; O2SAT 98
== END 2023-02-19 19:31 | disposition home or self-care (01) ==
LOC: M ED 16:29 → EDBD 16:29 → M ED 19:31
DX: N39.0 Urinary tract infection, site not specified (principal); E11.9 Type 2 diabetes mellitus without complications; I10 Essential (primary) hypertension; E78.5 Hyperlipidemia, unspecified; G47.33 Obstructive sleep apnea (adult) (pediatric); F31.9 Bipolar disorder, unspecified; N18.9 Chronic kidney disease, unspecified; Z87.440 Personal history of urinary (tract) infections; Z86.19 Personal history of other infectious and parasitic diseases; F17.200 Nicotine dependence, unspecified, uncomplicated; Z95.0 Presence of cardiac pacemaker; Z79.4 Long term (current) use of insulin; Z79.82 Long term (current) use of aspirin; Z79.899 Other long term (current) drug therapy; Z88.6 Allergy status to analgesic agent; Z88.8 Allergy status to other drugs, medicaments and biological substances

== ENCOUNTER → 2023-02-21 | Outpatient (CLI) | payer MEDICARE, MEDICAID ==
[~2023-02-21] MED LIST changes: +CEFD300C PO; +TRAM50TA2
== END ==
LOC: M PAIN 14:45
PROVIDERS: ATTEND Nurse Practitioner Family
DX: M46.1 Sacroiliitis, not elsewhere classified (principal); M79.10 Myalgia, unspecified site; G89.29 Other chronic pain; E78.5 Hyperlipidemia, unspecified; E11.3292 Type 2 diabetes mellitus with mild nonproliferative diabetic retinopathy without macular edema, left eye; F32.A Depression, unspecified; J45.909 Unspecified asthma, uncomplicated; F31.9 Bipolar disorder, unspecified; M47.814 Spondylosis without myelopathy or radiculopathy, thoracic region; N18.30 Chronic kidney disease, stage 3 unspecified; G47.33 Obstructive sleep apnea (adult) (pediatric); Z87.891 Personal history of nicotine dependence; Z79.891 Long term (current) use of opiate analgesic; Z79.4 Long term (current) use of insulin; Z79.82 Long term (current) use of aspirin; Z79.899 Other long term (current) drug therapy; Z79.02 Long term (current) use of antithrombotics/antiplatelets; Z88.8 Allergy status to other drugs, medicaments and biological substances

== ENCOUNTER 2023-03-03 13:26 | Emergency (ER) | payer MEDICARE, MEDICAID ==
[~2023-03-03] VITALS: Ht 152.4 cm; Wt 98.8 kg
[~2023-03-03 13:26] MED LIST changes: -EFFE150C2 PO; +EFFE150C3 PO
[2023-03-03 15:59] LABS: RSV AMPLIFICATION NEGATIVE (NEGATIVE)
[2023-03-03] MEDS ORDERED: ACETAMINOPHEN 325 MG TAB PO ONE (17:40)
[2023-03-03 18:01] VITALS: BP 166/79; TEMP 99.4; O2SAT 98
== END 2023-03-03 18:10 | disposition home or self-care (01) ==
LOC: M ED 13:26
DX: J09.X2 Influenza due to identified novel influenza A virus with other respiratory manifestations (principal); E11.9 Type 2 diabetes mellitus without complications; I10 Essential (primary) hypertension; N18.30 Chronic kidney disease, stage 3 unspecified; Z79.4 Long term (current) use of insulin; Z79.82 Long term (current) use of aspirin; Z79.899 Other long term (current) drug therapy; Z88.6 Allergy status to analgesic agent; Z88.8 Allergy status to other drugs, medicaments and biological substances

== ENCOUNTER → 2023-03-21 | Outpatient (REF) | payer MEDICARE, MEDICAID ==
[2023-03-21 16:33] LABS: APPEARANCE, URINE MANUAL CLEAR (CLEAR)
[2023-03-21 16:34] LABS: BILIRUBIN, URINE MANUAL NEGATIVE (NEGATIVE); COLOR, URINE MANUAL LT YELLOW (YELLOW); GLUCOSE, URINE (UA) MANUAL 4+(1000 MG/DL) mg/dL (NEGATIVE); KETONE, URINE MANUAL NEGATIVE (NEGATIVE); NITRITE, URINE MANUAL NEGATIVE (NEGATIVE); PROTEIN, URINE MANUAL NEGATIVE (NEGATIVE); UROBILINOGEN, URINE MANUAL NORMAL (NORMAL)
[2023-03-21 16:35] LABS: BLOOD URINE MANUAL NEGATIVE (NEGATIVE); LEUKOCYTE ESTERASE, URINE MAN POSITIVE (NEGATIVE)
[2023-03-21 17:02] LABS: BACTERIA, URINE SMALL AMOUNT; HYALINE CAST, URINE NONE SEEN /lpf (0-1); SQUAMOUS EPITHELIAL CELL URINE NONE SEEN /hpf (SMALL AMT); WBC, URINE 30-40 /hpf (0-3)
== END ==
LOC: M LAB REF 15:48
PROVIDERS: ATTEND Physician Assistant Medical
DX: N39.0 Urinary tract infection, site not specified (principal)

== ENCOUNTER → 2023-03-23 | Outpatient (CLI) | payer MEDICARE, MEDICAID | LOC: M PAIN 15:30 | PROVIDERS: ATTEND Nurse Practitioner Family | DX: M79.10 Myalgia, unspecified site (principal); M46.1 Sacroiliitis, not elsewhere classified; G89.29 Other chronic pain; E78.5 Hyperlipidemia, unspecified; E11.3292 Type 2 diabetes mellitus with mild nonproliferative diabetic retinopathy without macular edema, left eye; F32.A Depression, unspecified; I12.9 Hypertensive chronic kidney disease with stage 1 through stage 4 chronic kidney disease, or unspecified chronic kidney disease; J45.909 Unspecified asthma, uncomplicated; N18.30 Chronic kidney disease, stage 3 unspecified; G47.33 Obstructive sleep apnea (adult) (pediatric); Z79.4 Long term (current) use of insulin; Z79.82 Long term (current) use of aspirin; Z79.891 Long term (current) use of opiate analgesic; Z79.899 Other long term (current) drug therapy; Z87.891 Personal history of nicotine dependence; Z88.6 Allergy status to analgesic agent; Z88.8 Allergy status to other drugs, medicaments and biological substances ==

== ENCOUNTER → 2023-03-23 | Outpatient (CLI) | payer MEDICARE, MEDICAID | LOC: M PLAIMG 12:31 | PROVIDERS: ATTEND Physician Assistant Medical | DX: R91.1 Solitary pulmonary nodule (principal); M79.10 Myalgia, unspecified site; M46.1 Sacroiliitis, not elsewhere classified; G89.29 Other chronic pain; E78.5 Hyperlipidemia, unspecified; E11.3292 Type 2 diabetes mellitus with mild nonproliferative diabetic retinopathy without macular edema, left eye; F32.A Depression, unspecified; I12.9 Hypertensive chronic kidney disease with stage 1 through stage 4 chronic kidney disease, or unspecified chronic kidney disease; N18.30 Chronic kidney disease, stage 3 unspecified; J45.909 Unspecified asthma, uncomplicated | CPT/HCPCS: 71250; G0463 ==

== ENCOUNTER → 2023-04-17 | Outpatient (CLI) | payer MEDICARE, MEDICAID | LOC: M RAD 14:11 | PROVIDERS: ATTEND Surgery | DX: T21.34XA Burn of third degree of lower back, initial encounter (principal) ==

== ENCOUNTER → 2023-04-26 | Outpatient (CLI) | payer MEDICARE, MEDICAID | LOC: M SOG 08:13 | PROVIDERS: ATTEND Orthopaedic Surgery | DX: Z96.651 Presence of right artificial knee joint (principal); M25.562 Pain in left knee ==

== ENCOUNTER → 2023-05-07 | Outpatient (REF) | payer MEDICARE, MEDICAID ==
[2023-05-07 13:08] LABS: APPEARANCE, URINE CLEAR (CLEAR); BACTERIA, URINE AUTO NEGATIVE (NEGATIVE); BILIRUBIN, URINE AUTO NEGATIVE (NEGATIVE); BLOOD, URINE BLOOD NEGATIVE (NEGATIVE); COLOR, URINE YELLOW (YELLOW); GLUCOSE, URINE (UA) AUTO 3+ mg/dL (NEGATIVE); KETONE, URINE AUTO TRACE mg/dL (NEGATIVE); LEUKOCYTE ESTERASE, URINE AUTO TRACE (NEGATIVE); NITRITE, URINE AUTO NEGATIVE (NEGATIVE); PROTEIN, URINE AUTO NEGATIVE (NEGATIVE); RBC, URINE AUTO 0 /HPF (0-3); SPECIFIC GRAVITY URINE AUTO 1.021 (1.002-1.035); SQUAMOUS EPITHELIAL CELL UR AU 1 /HPF (0-6); UROBILINOGEN, URINE AUTO 0.2 mg/dL (0.0-2.0); WBC, URINE AUTO 14 /HPF (0-3)
== END ==
LOC: EEVIPCON 10:15 → M LAB REF 10:15
PROVIDERS: ATTEND Physician Assistant
DX: N39.0 Urinary tract infection, site not specified (principal)

== ENCOUNTER → 2023-05-13 | Outpatient (REF) | payer MEDICARE, MEDICAID ==
[~2023-05-13] MED LIST changes: -OXYB5TAB11 PO; +OXYB5TAB14 PO
[2023-05-13 19:27] LABS: APPEARANCE, URINE CLEAR (CLEAR); BACTERIA, URINE AUTO NEGATIVE (NEGATIVE); BILIRUBIN, URINE AUTO NEGATIVE (NEGATIVE); BLOOD, URINE BLOOD NEGATIVE (NEGATIVE); COLOR, URINE STRAW (YELLOW); GLUCOSE, URINE (UA) AUTO 3+ mg/dL (NEGATIVE); KETONE, URINE AUTO NEGATIVE (NEGATIVE); LEUKOCYTE ESTERASE, URINE AUTO NEGATIVE (NEGATIVE); MUCUS, URINE SMALL (NEGATIVE); NITRITE, URINE AUTO NEGATIVE (NEGATIVE); PROTEIN, URINE AUTO NEGATIVE (NEGATIVE); RBC, URINE AUTO 0 /HPF (0-3); SPECIFIC GRAVITY URINE AUTO 1.024 (1.002-1.035); SQUAMOUS EPITHELIAL CELL UR AU 1 /HPF (0-6); UROBILINOGEN, URINE AUTO 0.2 mg/dL (0.0-2.0); WBC, URINE AUTO 1 /HPF (0-3)
== END ==
LOC: M LAB REF 18:35
PROVIDERS: ATTEND Physician Assistant Medical
DX: N39.0 Urinary tract infection, site not specified (principal)

== ENCOUNTER → 2023-05-24 | Outpatient (REF) | payer MEDICARE, MEDICAID ==
[2023-05-24 17:52] LABS: APPEARANCE, URINE CLEAR (CLEAR); BACTERIA, URINE AUTO NEGATIVE (NEGATIVE); BILIRUBIN, URINE AUTO NEGATIVE (NEGATIVE); BLOOD, URINE BLOOD NEGATIVE (NEGATIVE); COLOR, URINE STRAW (YELLOW); GLUCOSE, URINE (UA) AUTO NEGATIVE (NEGATIVE); KETONE, URINE AUTO NEGATIVE (NEGATIVE); LEUKOCYTE ESTERASE, URINE AUTO NEGATIVE (NEGATIVE); NITRITE, URINE AUTO NEGATIVE (NEGATIVE); PROTEIN, URINE AUTO NEGATIVE (NEGATIVE); RBC, URINE AUTO 1 /HPF (0-3); SPECIFIC GRAVITY URINE AUTO 1.008 (1.002-1.035); SQUAMOUS EPITHELIAL CELL UR AU 0 /HPF (0-6); UROBILINOGEN, URINE AUTO 0.2 mg/dL (0.0-2.0); WBC, URINE AUTO 0 /HPF (0-3)
== END ==
LOC: M SMT 16:57
PROVIDERS: ATTEND Urology
DX: N39.0 Urinary tract infection, site not specified (principal)

== ENCOUNTER → 2023-06-12 | Outpatient (CLI) | payer MEDICARE, MEDICAID | LOC: M PAIN 14:00 | PROVIDERS: ATTEND Nurse Practitioner Family | DX: M79.10 Myalgia, unspecified site (principal); Z79.891 Long term (current) use of opiate analgesic; G89.29 Other chronic pain; E11.22 Type 2 diabetes mellitus with diabetic chronic kidney disease; I10 Essential (primary) hypertension; G47.33 Obstructive sleep apnea (adult) (pediatric); Z95.0 Presence of cardiac pacemaker; Z79.4 Long term (current) use of insulin; Z79.899 Other long term (current) drug therapy; Z88.6 Allergy status to analgesic agent; Z88.8 Allergy status to other drugs, medicaments and biological substances ==

== ENCOUNTER → 2023-07-20 | Outpatient (CLI) | payer MEDICARE, MEDICAID ==
[2023-07-20 14:07] LABS: HEMATOCRIT 39.8 % (36.0-47.0); HEMOGLOBIN 12.5 g/dl (12.0-15.5); MEAN CORPUSCULAR HEMOGLOBIN 26.8 pg (27.0-33.0); MEAN CORPUSCULAR HGB CONC 31.4 g/dl (32.0-36.5); MEAN CORPUSCULAR VOLUME 85.2 fl (80.0-96.0); PLATELET COUNT, AUTOMATED 241 10^3/uL (150-450); RED BLOOD COUNT 4.67 10^6/uL (4.00-5.40); WHITE BLOOD COUNT 6.4 10^3/uL (4.0-10.0)
[2023-07-20 14:40] LABS: ALBUMIN 3.3 G/DL (3.2-5.2); ALKALINE PHOSPHATASE 183 U/L (46-116); ALT/SGPT 12 U/L (7.0-40); AST/SGOT 9 U/L (<34); BILIRUBIN,TOTAL 0.3 MG/DL (0.3-1.2); BLOOD UREA NITROGEN 22 MG/DL (9-23); CALCIUM LEVEL 9.6 MG/DL (8.5-10.1); CARBON DIOXIDE LEVEL 28 MMOL/L (20-31); CHLORIDE LEVEL 107 MMOL/L (98-107); CHOLESTEROL LEVEL 195 MG/DL (<200); CHOLESTEROL RISK RATIO 4.17 (<5); CREATININE FOR GFR 0.97 MG/DL (0.55-1.30); GLOMERULAR FILTRATION RATE > 60.0 (>51); GLUCOSE, FASTING 52 MG/DL (60-100); HDL CHOLESTEROL 46.7 MG/DL (>40); LDL CHOLESTEROL 111.3 MG/DL (<100); NON-HDL-C 148.3 MG/DL; POTASSIUM SERUM 3.8 MMOL/L (3.5-5.1); SODIUM LEVEL 142 MMOL/L (136-145); TOTAL PROTEIN 6.9 G/DL (5.7-8.2); TRIGLYCERIDES LEVEL 185 MG/DL (<150)
[2023-07-20 14:41] LABS: FREE T4 0.92 NG/DL (0.89-1.76); VITAMIN B12 LEVEL 407 PG/ML (211-911)
[2023-07-20 14:42] LABS: FOLATE 22.6 NG/ML (>5.4); THYROID STIMULATING HORMONE 3.636 uIU/ML (0.55-4.78); TOTAL 25(OH) VITAMIN D 13.9 NG/ML (20.0-100.0)
== END ==
LOC: M LAB 13:23
PROVIDERS: ATTEND Physician Assistant
DX: E11.22 Type 2 diabetes mellitus with diabetic chronic kidney disease (principal); I10 Essential (primary) hypertension; R91.1 Solitary pulmonary nodule; E78.00 Pure hypercholesterolemia, unspecified

== ENCOUNTER 2023-07-21 15:31 | Emergency (ER) | payer MEDICARE, MEDICAID ==
[~2023-07-21] VITALS: Ht 152.4 cm; Wt 105.2 kg
[2023-07-21] MEDS: ASPIRIN 81MG CHEW TABLET PO ONE (15:57)
[2023-07-21 16:01] LABS: BASO % 0.5 % (0.0-1.0); EOS # 0.2 10^3/uL (0.0-0.5); EOS % 2.5 % (0.0-3.0); HEMATOCRIT 38.3 % (36.0-47.0); LYMPH # 1.2 10^3/uL (1.5-5.0); LYMPH % 16.2 % (24.0-44.0); MEAN CORPUSCULAR HEMOGLOBIN 26.3 pg (27.0-33.0); MEAN CORPUSCULAR HGB CONC 31.3 g/dl (32.0-36.5); MONO # 0.5 10^3/uL (0.0-0.8); NEUTROPHILS # 5.6 10^3/uL (1.5-8.5); NEUTROPHILS % 74.4 % (36.0-66.0); PLATELET COUNT, AUTOMATED 257 10^3/uL (150-450); RED BLOOD COUNT 4.56 10^6/uL (4.00-5.40); WHITE BLOOD COUNT 7.5 10^3/uL (4.0-10.0)
[2023-07-21 16:21] LABS: LIPASE 49 U/L (12-53)
[2023-07-21 16:23] LABS: CPK CREATINE PHOSPHOKINASE 54 U/L (34-145)
[2023-07-21 16:52] LABS: ALBUMIN 3.1 G/DL (3.2-5.2); ALKALINE PHOSPHATASE 179 U/L (46-116); ALT/SGPT 13 U/L (7.0-40); AST/SGOT 9 U/L (<34); BILIRUBIN,DIRECT < 0.1 MG/DL (<0.4); BILIRUBIN,TOTAL 0.2 MG/DL (0.3-1.2); BLOOD UREA NITROGEN 20 MG/DL (9-23); CALCIUM LEVEL 9.3 MG/DL (8.5-10.1); CARBON DIOXIDE LEVEL 28 MMOL/L (20-31); CHLORIDE LEVEL 108 MMOL/L (98-107); CK-MB VALUE MASS < 1.0 NG/ML (<3.6); CREATININE FOR GFR 1.02 MG/DL (0.55-1.30); GLOMERULAR FILTRATION RATE 59.3 (>51); GLUCOSE, FASTING 77 MG/DL (60-100); MB/CK RELATIVE INDEX 1.85 (< OR =4); SODIUM LEVEL 141 MMOL/L (136-145); THYROID STIMULATING HORMONE 4.601 uIU/ML (0.55-4.78); TOTAL PROTEIN 6.6 G/DL (5.7-8.2)
[2023-07-21] MEDS ORDERED: ISOVUE-370 76% 100ML VIAL As Ordered ONE (16:58)
[2023-07-21 17:37] LABS: CK-MB VALUE MASS < 1.0 NG/ML (<3.6)
[2023-07-21 17:39] LABS: CPK CREATINE PHOSPHOKINASE 53 U/L (34-145); MB/CK RELATIVE INDEX 1.88 (< OR =4)
[2023-07-21 18:00] VITALS: BP 128/64; TEMP 97.9; O2SAT 98
== END 2023-07-21 18:30 | disposition home or self-care (01) ==
LOC: M ED 15:31 → EDBD 15:31 → EDSEX 15:31 → M ED 18:30
DX: R07.9 Chest pain, unspecified (principal); I44.7 Left bundle-branch block, unspecified; E11.9 Type 2 diabetes mellitus without complications; E78.5 Hyperlipidemia, unspecified; J45.909 Unspecified asthma, uncomplicated; F31.9 Bipolar disorder, unspecified; G47.33 Obstructive sleep apnea (adult) (pediatric); N18.9 Chronic kidney disease, unspecified; Z87.891 Personal history of nicotine dependence; Z88.8 Allergy status to other drugs, medicaments and biological substances; Z79.51 Long term (current) use of inhaled steroids; Z79.1 Long term (current) use of non-steroidal anti-inflammatories (NSAID); Z79.2 Long term (current) use of antibiotics; Z79.4 Long term (current) use of insulin; Z79.899 Other long term (current) drug therapy
CPT/HCPCS: 36415; 70450; 71045; 71275; 80048; 80076; 82550; 82553; 83690; 83880; 84443; 84484; 85025; 93005; 93041; 94760; 99285; Q9967

== ENCOUNTER → 2023-08-03 | Outpatient (REF) | payer MEDICARE, MEDICAID ==
[~2023-08-03] MED LIST changes: -POTA10CA60 PO; +POTA10CA70 PO
== END ==
LOC: M LAB REF 16:24
PROVIDERS: ATTEND Physician Assistant
DX: J02.9 Acute pharyngitis, unspecified (principal)

== ENCOUNTER → 2023-08-08 | Outpatient (REF) | payer MEDICARE, MEDICAID ==
[2023-08-08 13:43] LABS: APPEARANCE, URINE HAZY (CLEAR); BACTERIA, URINE AUTO 1+ (NEGATIVE); BILIRUBIN, URINE AUTO NEGATIVE (NEGATIVE); BLOOD, URINE BLOOD NEGATIVE (NEGATIVE); COLOR, URINE YELLOW (YELLOW); GLUCOSE, URINE (UA) AUTO 3+ mg/dL (NEGATIVE); KETONE, URINE AUTO NEGATIVE (NEGATIVE); LEUKOCYTE ESTERASE, URINE AUTO 3+ (NEGATIVE); MUCUS, URINE SMALL (NEGATIVE); NITRITE, URINE AUTO NEGATIVE (NEGATIVE); PROTEIN, URINE AUTO NEGATIVE (NEGATIVE); RBC, URINE AUTO 2 /HPF (0-3); SPECIFIC GRAVITY URINE AUTO 1.013 (1.002-1.035); SQUAMOUS EPITHELIAL CELL UR AU 3 /HPF (0-6); TRANSITIONAL EPITHELIAL AUTO 1 /HPF; UROBILINOGEN, URINE AUTO 0.2 mg/dL (0.0-2.0); WBC, URINE AUTO 98 /HPF (0-3)
== END ==
LOC: M LAB REF 12:17
PROVIDERS: ATTEND Physician Assistant Medical
DX: N39.0 Urinary tract infection, site not specified (principal)

== ENCOUNTER → 2023-08-22 | Outpatient (REF) | payer MEDICARE, MEDICAID ==
[~2023-08-22] MED LIST changes: +ATEN50TA2; +CIPR500T39; +FAMO20TA PO; +FLUC150T9; +HUMA100I5; +ISOS1TAB35 PO; +LIDO5OIN19; +NITR0.4S14; +ONDA-282 PO; -ONDA4TAB6 PO; +SEMA0.257; +ZONI50CA11
[2023-08-22 17:54] LABS: APPEARANCE, URINE HAZY (CLEAR); BACTERIA, URINE AUTO NEGATIVE (NEGATIVE); BILIRUBIN, URINE AUTO NEGATIVE (NEGATIVE); BLOOD, URINE BLOOD NEGATIVE (NEGATIVE); COLOR, URINE YELLOW (YELLOW); GLUCOSE, URINE (UA) AUTO 3+ mg/dL (NEGATIVE); KETONE, URINE AUTO NEGATIVE (NEGATIVE); LEUKOCYTE ESTERASE, URINE AUTO 2+ (NEGATIVE); NITRITE, URINE AUTO NEGATIVE (NEGATIVE); PROTEIN, URINE AUTO NEGATIVE (NEGATIVE); RBC, URINE AUTO 0 /HPF (0-3); SPECIFIC GRAVITY URINE AUTO 1.009 (1.002-1.035); SQUAMOUS EPITHELIAL CELL UR AU 0 /HPF (0-6); UROBILINOGEN, URINE AUTO 0.2 mg/dL (0.0-2.0); WBC, URINE AUTO 39 /HPF (0-3)
== END ==
LOC: M LABSMT 11:12
PROVIDERS: ATTEND Urology
DX: N39.0 Urinary tract infection, site not specified (principal)

== ENCOUNTER → 2023-09-06 | Outpatient (CLI) | payer MEDICARE, MEDICAID ==
[~2023-09-06] MED LIST changes: -ATEN50TA2; -CIPR500T39; -FAMO20TA PO; -FLUC150T9; -HUMA100I5; -ISOS1TAB35 PO; -LIDO5OIN19; -NITR0.4S14; -SEMA0.257; -ZONI50CA11
== END ==
LOC: M PAIN 15:00
PROVIDERS: ATTEND Anesthesiology
DX: M54.2 Cervicalgia (principal); M47.812 Spondylosis without myelopathy or radiculopathy, cervical region; M54.50 Low back pain, unspecified; M79.10 Myalgia, unspecified site; M79.18 Myalgia, other site; E78.5 Hyperlipidemia, unspecified; E11.3292 Type 2 diabetes mellitus with mild nonproliferative diabetic retinopathy without macular edema, left eye; F31.9 Bipolar disorder, unspecified; I12.9 Hypertensive chronic kidney disease with stage 1 through stage 4 chronic kidney disease, or unspecified chronic kidney disease; J45.909 Unspecified asthma, uncomplicated; M47.814 Spondylosis without myelopathy or radiculopathy, thoracic region; N18.30 Chronic kidney disease, stage 3 unspecified; E11.22 Type 2 diabetes mellitus with diabetic chronic kidney disease; G47.33 Obstructive sleep apnea (adult) (pediatric); Z87.891 Personal history of nicotine dependence; Z79.4 Long term (current) use of insulin; Z79.899 Other long term (current) drug therapy; Z79.82 Long term (current) use of aspirin; Z88.6 Allergy status to analgesic agent; Z88.8 Allergy status to other drugs, medicaments and biological substances

== ENCOUNTER → 2023-09-21 | Outpatient (CLI) | payer MEDICARE, MEDICAID ==
[2023-09-21 14:07] LABS: ALBUMIN 3.4 G/DL (3.2-5.2); ALKALINE PHOSPHATASE 224 U/L (46-116); ALT/SGPT 12 U/L (7.0-40); AST/SGOT < 8 U/L (<34); BILIRUBIN,TOTAL 0.6 MG/DL (0.3-1.2); BLOOD UREA NITROGEN 23 MG/DL (9-23); CALCIUM LEVEL 9.1 MG/DL (8.5-10.1); CARBON DIOXIDE LEVEL 27 MMOL/L (20-31); CHLORIDE LEVEL 107 MMOL/L (98-107); CHOLESTEROL LEVEL 139 MG/DL (<200); CHOLESTEROL RISK RATIO 3.44 (<5); CREATININE FOR GFR 1.11 MG/DL (0.55-1.30); GLOMERULAR FILTRATION RATE 53.6 (>51); GLUCOSE, FASTING 189 MG/DL (60-100); HDL CHOLESTEROL 40.3 MG/DL (>40); LDL CHOLESTEROL 67.3 MG/DL (<100); NON-HDL-C 98.7 MG/DL; POTASSIUM SERUM 4.4 MMOL/L (3.5-5.1); SODIUM LEVEL 140 MMOL/L (136-145); TOTAL PROTEIN 7.1 G/DL (5.7-8.2); TRIGLYCERIDES LEVEL 157 MG/DL (<150)
== END ==
LOC: M PLALAB 11:16
PROVIDERS: ATTEND Physician Assistant
DX: I25.10 Atherosclerotic heart disease of native coronary artery without angina pectoris (principal); E78.5 Hyperlipidemia, unspecified

== ENCOUNTER → 2023-09-22 | Outpatient (CLI) | payer MEDICARE, MEDICAID | LOC: M PLAIMG 13:49 | PROVIDERS: ATTEND Anesthesiology | DX: M54.50 Low back pain, unspecified (principal); M54.2 Cervicalgia ==

== ENCOUNTER 2023-10-04 12:21 | Emergency (ER) | payer MEDICARE, MEDICAID ==
[~2023-10-04] VITALS: Ht 154.9 cm; Wt 99.5 kg
[2023-10-04 12:52] LABS: BASO # 0.1 10^3/uL (0.0-0.2); BASO % 0.6 % (0.0-1.0); EOS # 0.4 10^3/uL (0.0-0.5); EOS % 3.6 % (0.0-3.0); HEMATOCRIT 39.1 % (36.0-47.0); HEMOGLOBIN 12.4 g/dl (12.0-15.5); LYMPH # 2.1 10^3/uL (1.5-5.0); LYMPH % 19.5 % (24.0-44.0); MEAN CORPUSCULAR HEMOGLOBIN 26.8 pg (27.0-33.0); MEAN CORPUSCULAR HGB CONC 31.7 g/dl (32.0-36.5); MEAN CORPUSCULAR VOLUME 84.6 fl (80.0-96.0); MONO # 0.6 10^3/uL (0.0-0.8); NEUTROPHILS # 7.4 10^3/uL (1.5-8.5); NEUTROPHILS % 69.6 % (36.0-66.0); PLATELET COUNT, AUTOMATED 226 10^3/uL (150-450); RED BLOOD COUNT 4.62 10^6/uL (4.00-5.40); WHITE BLOOD COUNT 10.7 10^3/uL (4.0-10.0)
[2023-10-04 13:09] LABS: INR 1.08; PROTHROMBIN TIME 13.7 SECONDS (12.5-14.5)
[2023-10-04 13:16] LABS: CK-MB VALUE MASS < 1.0 NG/ML (<3.6)
[2023-10-04 13:17] LABS: LIPASE 28 U/L (12-53)
[2023-10-04 13:18] LABS: CPK CREATINE PHOSPHOKINASE 39 U/L (34-145); MB/CK RELATIVE INDEX 2.56 (< OR =4)
[2023-10-04] MEDS ORDERED: NITR0.4S14 (13:18)
[2023-10-04] MEDS ORDERED: ATEN50TA2 (13:18)
[2023-10-04] MEDS ORDERED: FAMO20TA PO (13:18)
[2023-10-04] MEDS ORDERED: LIDO5OIN19 (13:18)
[2023-10-04] MEDS ORDERED: HUMA100I5 (13:18)
[2023-10-04] MEDS ORDERED: INSUDET SC (13:18)
[2023-10-04 13:19] LABS: ALBUMIN 3.3 G/DL (3.2-5.2); ALKALINE PHOSPHATASE 206 U/L (46-116); ALT/SGPT 16 U/L (7.0-40); AST/SGOT < 8 U/L (<34); BILIRUBIN,DIRECT 0.1 MG/DL (<0.4); BILIRUBIN,TOTAL 0.4 MG/DL (0.3-1.2); BLOOD UREA NITROGEN 25 MG/DL (9-23); CALCIUM LEVEL 8.9 MG/DL (8.5-10.1); CARBON DIOXIDE LEVEL 27 MMOL/L (20-31); CHLORIDE LEVEL 108 MMOL/L (98-107); CREATININE FOR GFR 1.13 MG/DL (0.55-1.30); GLOMERULAR FILTRATION RATE 52.5 (>51); GLUCOSE, FASTING 111 MG/DL (60-100); POTASSIUM SERUM 3.8 MMOL/L (3.5-5.1); SODIUM LEVEL 139 MMOL/L (136-145)
[2023-10-04] MEDS: ASPIRIN 81MG CHEW TABLET PO ONE (13:24)
[2023-10-04] MEDS: NITROGLYCERIN 0.4MG SUBL TABLET SL PRN (13:25)
[2023-10-04 13:37] VITALS: BP 129/61
[2023-10-04 14:33] LABS: CK-MB VALUE MASS < 1.0 NG/ML (<3.6); CPK CREATINE PHOSPHOKINASE 55 U/L (34-145); MB/CK RELATIVE INDEX 1.81 (< OR =4)
[2023-10-04] MEDS ORDERED: FLUC150T9 (14:41)
[2023-10-04] MEDS ORDERED: SEMA0.257 (14:41)
[2023-10-04] MEDS ORDERED: CIPR500T39 (14:41)
[2023-10-04] MEDS ORDERED: ZONI50CA11 (14:41)
[2023-10-04] MEDS ORDERED: ISOVUE-370 76% 100ML VIAL As Ordered ONE (14:51)
[2023-10-04 16:06] VITALS: O2SAT 98
[2023-10-04 16:27] LABS: CK-MB VALUE MASS < 1.0 NG/ML (<3.6)
[2023-10-04 16:29] LABS: CPK CREATINE PHOSPHOKINASE 31 U/L (34-145); MB/CK RELATIVE INDEX 3.22 (< OR =4)
[2023-10-04] MEDS ORDERED: ISOS1TAB35 PO (17:11)
[2023-10-04 17:39] VITALS: TEMP 97.2
[2023-10-04 17:57] VITALS: BP 162/73; O2SAT 97
== END 2023-10-04 17:57 | disposition home or self-care (01) ==
LOC: M ED 12:21 → EDBD 12:21 → M ED 17:57
DX: R07.9 Chest pain, unspecified (principal); I44.7 Left bundle-branch block, unspecified; E11.9 Type 2 diabetes mellitus without complications; E78.5 Hyperlipidemia, unspecified; F43.10 Post-traumatic stress disorder, unspecified; F31.9 Bipolar disorder, unspecified; I12.9 Hypertensive chronic kidney disease with stage 1 through stage 4 chronic kidney disease, or unspecified chronic kidney disease; J45.909 Unspecified asthma, uncomplicated; G47.33 Obstructive sleep apnea (adult) (pediatric); Z87.891 Personal history of nicotine dependence; Z88.8 Allergy status to other drugs, medicaments and biological substances; Z79.51 Long term (current) use of inhaled steroids; Z79.2 Long term (current) use of antibiotics; Z79.4 Long term (current) use of insulin; Z79.899 Other long term (current) drug therapy
CPT/HCPCS: 36415; 71045; 71275; 80048; 80076; 82550; 82553; 83690; 84484; 85025; 85610; 93005; 93041; 94760; 99285; Q9967

== ENCOUNTER → 2023-10-05 | Outpatient (CLI) | payer MEDICARE, MEDICAID ==
[~2023-10-05] MED LIST changes: +ATEN50TA2; +CIPR500T39; +FAMO20TA PO; +FLUC150T9; +HUMA100I5; +ISOS1TAB35 PO; +LIDO5OIN19; +NITR0.4S14; +SEMA0.257; +ZONI50CA11
== END ==
LOC: M PAIN 16:00
PROVIDERS: ATTEND Anesthesiology
DX: M79.18 Myalgia, other site (principal); M54.50 Low back pain, unspecified; E78.5 Hyperlipidemia, unspecified; E11.3292 Type 2 diabetes mellitus with mild nonproliferative diabetic retinopathy without macular edema, left eye; F32.A Depression, unspecified; I12.9 Hypertensive chronic kidney disease with stage 1 through stage 4 chronic kidney disease, or unspecified chronic kidney disease; J45.909 Unspecified asthma, uncomplicated; N18.30 Chronic kidney disease, stage 3 unspecified; E11.22 Type 2 diabetes mellitus with diabetic chronic kidney disease; G47.33 Obstructive sleep apnea (adult) (pediatric); Z87.891 Personal history of nicotine dependence; Z79.82 Long term (current) use of aspirin; Z79.02 Long term (current) use of antithrombotics/antiplatelets; Z79.4 Long term (current) use of insulin; Z79.899 Other long term (current) drug therapy; Z88.6 Allergy status to analgesic agent; Z88.8 Allergy status to other drugs, medicaments and biological substances

== ENCOUNTER → 2023-10-13 | Outpatient (CLI) | payer MEDICARE, MEDICAID | LOC: M PAIN 10:45 | PROVIDERS: ATTEND Nurse Practitioner Family | DX: M79.18 Myalgia, other site (principal); M54.50 Low back pain, unspecified; E78.5 Hyperlipidemia, unspecified; E11.3292 Type 2 diabetes mellitus with mild nonproliferative diabetic retinopathy without macular edema, left eye; E11.22 Type 2 diabetes mellitus with diabetic chronic kidney disease; N18.30 Chronic kidney disease, stage 3 unspecified; F32.A Depression, unspecified; I12.9 Hypertensive chronic kidney disease with stage 1 through stage 4 chronic kidney disease, or unspecified chronic kidney disease; J45.909 Unspecified asthma, uncomplicated; F31.9 Bipolar disorder, unspecified; M47.814 Spondylosis without myelopathy or radiculopathy, thoracic region; M47.816 Spondylosis without myelopathy or radiculopathy, lumbar region; G47.33 Obstructive sleep apnea (adult) (pediatric); Z87.891 Personal history of nicotine dependence; Z79.4 Long term (current) use of insulin; Z79.82 Long term (current) use of aspirin; Z79.02 Long term (current) use of antithrombotics/antiplatelets; Z79.899 Other long term (current) drug therapy; Z88.6 Allergy status to analgesic agent; Z88.8 Allergy status to other drugs, medicaments and biological substances ==

== ENCOUNTER → 2023-10-25 | Outpatient (CLI) | payer MEDICARE, MEDICAID | LOC: M SOG 07:51 | PROVIDERS: ATTEND Orthopaedic Surgery | DX: Z96.651 Presence of right artificial knee joint (principal); Z47.1 Aftercare following joint replacement surgery ==

== ENCOUNTER → 2023-11-24 | Outpatient (REF) | payer MEDICARE, MEDICAID ==
[~2023-11-24] MED LIST changes: +VANC250C10 PO; -VANC250C3 PO
[2023-11-24 13:00] LABS: APPEARANCE, URINE CLEAR (CLEAR); BACTERIA, URINE AUTO NEGATIVE (NEGATIVE); BILIRUBIN, URINE AUTO NEGATIVE (NEGATIVE); BLOOD, URINE BLOOD 1+ (NEGATIVE); COLOR, URINE YELLOW (YELLOW); GLUCOSE, URINE (UA) AUTO 3+ mg/dL (NEGATIVE); KETONE, URINE AUTO NEGATIVE (NEGATIVE); LEUKOCYTE ESTERASE, URINE AUTO NEGATIVE (NEGATIVE); NITRITE, URINE AUTO NEGATIVE (NEGATIVE); PROTEIN, URINE AUTO NEGATIVE (NEGATIVE); RBC, URINE AUTO 0 /HPF (0-3); SPECIFIC GRAVITY URINE AUTO 1.015 (1.002-1.035); SQUAMOUS EPITHELIAL CELL UR AU 0 /HPF (0-6); UROBILINOGEN, URINE AUTO 0.2 mg/dL (0.0-2.0); WBC, URINE AUTO 1 /HPF (0-3)
== END ==
LOC: M LABSMT 10:29
PROVIDERS: ATTEND Urology
DX: Z87.440 Personal history of urinary (tract) infections (principal); Z79.899 Other long term (current) drug therapy

== ENCOUNTER → 2023-11-24 | Outpatient (CLI) | payer MEDICARE, MEDICAID | LOC: M PAIN 09:00 | PROVIDERS: ATTEND Nurse Practitioner Family | DX: M79.18 Myalgia, other site (principal); G89.29 Other chronic pain; M54.50 Low back pain, unspecified; E78.5 Hyperlipidemia, unspecified; E11.3292 Type 2 diabetes mellitus with mild nonproliferative diabetic retinopathy without macular edema, left eye; F31.9 Bipolar disorder, unspecified; I12.9 Hypertensive chronic kidney disease with stage 1 through stage 4 chronic kidney disease, or unspecified chronic kidney disease; J45.909 Unspecified asthma, uncomplicated; I69.354 Hemiplegia and hemiparesis following cerebral infarction affecting left non-dominant side; I69.328 Other speech and language deficits following cerebral infarction; M47.814 Spondylosis without myelopathy or radiculopathy, thoracic region; M47.817 Spondylosis without myelopathy or radiculopathy, lumbosacral region; G47.33 Obstructive sleep apnea (adult) (pediatric); N18.30 Chronic kidney disease, stage 3 unspecified; E11.22 Type 2 diabetes mellitus with diabetic chronic kidney disease; Z87.891 Personal history of nicotine dependence; Z79.4 Long term (current) use of insulin; Z79.82 Long term (current) use of aspirin; Z79.02 Long term (current) use of antithrombotics/antiplatelets; Z79.899 Other long term (current) drug therapy; Z88.6 Allergy status to analgesic agent; Z88.8 Allergy status to other drugs, medicaments and biological substances ==

== ENCOUNTER → 2024-01-03 | Outpatient (REF) | payer MEDICARE, MEDICAID | LOC: M SFHCWAGY 16:56 | PROVIDERS: ATTEND Nurse Practitioner Family | DX: R10.2 Pelvic and perineal pain (principal) ==

== ENCOUNTER → 2024-01-06 | Outpatient (REF) | payer MEDICARE, MEDICAID ==
[2024-01-07 02:25] LABS: APPEARANCE, URINE CLOUDY (CLEAR); BACTERIA, URINE AUTO 3+ (NEGATIVE); BILIRUBIN, URINE AUTO NEGATIVE (NEGATIVE); BLOOD, URINE BLOOD 2+ (NEGATIVE); COLOR, URINE YELLOW (YELLOW); GLUCOSE, URINE (UA) AUTO NEGATIVE (NEGATIVE); KETONE, URINE AUTO NEGATIVE (NEGATIVE); LEUKOCYTE ESTERASE, URINE AUTO 3+ (NEGATIVE); NITRITE, URINE AUTO POSITIVE (NEGATIVE); PROTEIN, URINE AUTO 1+ mg/dL (NEGATIVE); RBC, URINE AUTO 12 /HPF (0-3); SPECIFIC GRAVITY URINE AUTO 1.016 (1.002-1.035); SQUAMOUS EPITHELIAL CELL UR AU 5 /HPF (0-6); UROBILINOGEN, URINE AUTO 0.2 mg/dL (0.0-2.0); WBC, URINE AUTO TNTC /HPF (0-3)
== END ==
LOC: M LAB REF 14:01
PROVIDERS: ATTEND Physician Assistant Medical
DX: N39.0 Urinary tract infection, site not specified (principal)

== ENCOUNTER → 2024-02-01 | Outpatient (CLI) | payer MEDICARE, MEDICAID ==
[~2024-02-01] MED LIST changes: +TRIAMCINOLONE ACETONIDE SUSP 40MG/ML 1ML VIAL As Ordered ONE; -VANC250C10 PO; +VANC250C12 PO; +diazePAM 5MG TABLET As Ordered ONE; +oxyCODONE 5MG TAB As Ordered ONE
== END ==
LOC: M PAIN 08:30
PROVIDERS: ATTEND Anesthesiology
DX: M79.18 Myalgia, other site (principal); G89.29 Other chronic pain; E78.5 Hyperlipidemia, unspecified; E11.22 Type 2 diabetes mellitus with diabetic chronic kidney disease; J45.909 Unspecified asthma, uncomplicated; F31.9 Bipolar disorder, unspecified; M47.814 Spondylosis without myelopathy or radiculopathy, thoracic region; N18.30 Chronic kidney disease, stage 3 unspecified; Z87.891 Personal history of nicotine dependence; Z79.4 Long term (current) use of insulin; Z79.02 Long term (current) use of antithrombotics/antiplatelets; Z79.82 Long term (current) use of aspirin; Z79.899 Other long term (current) drug therapy; Z88.6 Allergy status to analgesic agent; Z88.8 Allergy status to other drugs, medicaments and biological substances
CPT/HCPCS: 20552; J0665; J3301

== ENCOUNTER → 2024-02-02 | Outpatient (CLI) | payer MEDICARE, MEDICAID ==
[~2024-02-02] MED LIST changes: -TRIAMCINOLONE ACETONIDE SUSP 40MG/ML 1ML VIAL As Ordered ONE; -diazePAM 5MG TABLET As Ordered ONE; -oxyCODONE 5MG TAB As Ordered ONE
[2024-02-02 13:57] LABS: ALBUMIN 3.2 G/DL (3.2-5.2); ALKALINE PHOSPHATASE 185 U/L (35-104); ALT/SGPT 14 U/L (7.0-40); AST/SGOT < 8 U/L (<34); BILIRUBIN,TOTAL 0.2 MG/DL (0.3-1.2); BLOOD UREA NITROGEN 24 MG/DL (9-23); CALCIUM LEVEL 9.6 MG/DL (8.5-10.1); CARBON DIOXIDE LEVEL 27 MMOL/L (20-31); CHLORIDE LEVEL 111 MMOL/L (98-107); CHOLESTEROL LEVEL 114 MG/DL (<200); CHOLESTEROL RISK RATIO 2.85 (<5); CREATININE FOR GFR 1.09 MG/DL (0.55-1.30); GLOMERULAR FILTRATION RATE 54.7 (>51); GLUCOSE, FASTING 258 MG/DL (60-100); HDL CHOLESTEROL 39.9 MG/DL (>40); LDL CHOLESTEROL 51.5 MG/DL (<100); NON-HDL-C 74.1 MG/DL; POTASSIUM SERUM 4.5 MMOL/L (3.5-5.1); SODIUM LEVEL 142 MMOL/L (136-145); TRIGLYCERIDES LEVEL 113 MG/DL (<150)
== END ==
LOC: M PLALAB 09:05
PROVIDERS: ATTEND Nurse Practitioner Family
DX: E78.00 Pure hypercholesterolemia, unspecified (principal)

== ENCOUNTER → 2024-02-12 | Outpatient (CLI) | payer MEDICARE, MEDICAID ==
[2024-02-12 14:15] LABS: HEMATOCRIT 41.8 % (36.0-47.0); HEMOGLOBIN 13.1 g/dl (12.0-15.5); MEAN CORPUSCULAR HEMOGLOBIN 26.6 pg (27.0-33.0); MEAN CORPUSCULAR HGB CONC 31.3 g/dl (32.0-36.5); MEAN CORPUSCULAR VOLUME 84.8 fl (80.0-96.0); PLATELET COUNT, AUTOMATED 277 10^3/uL (150-450); RED BLOOD COUNT 4.93 10^6/uL (4.00-5.40); WHITE BLOOD COUNT 16.8 10^3/uL (4.0-10.0)
[2024-02-12 14:25] LABS: CALCIUM LEVEL 9.4 MG/DL (8.5-10.1); CREATININE FOR GFR 1.25 MG/DL (0.55-1.30); GLOMERULAR FILTRATION RATE 46.7 (>51); POTASSIUM SERUM 3.9 MMOL/L (3.5-5.1)
== END ==
LOC: M PLAIMG 10:05
PROVIDERS: ATTEND Physician Assistant Medical
DX: R06.00 Dyspnea, unspecified (principal); J06.9 Acute upper respiratory infection, unspecified; Z99.89 Dependence on other enabling machines and devices; D25.1 Intramural leiomyoma of uterus; N95.0 Postmenopausal bleeding; R10.2 Pelvic and perineal pain

== ENCOUNTER → 2024-02-12 | Outpatient (CLI) | payer MEDICARE, MEDICAID | LOC: M WHC 08:32 | PROVIDERS: ATTEND Nurse Practitioner Family | DX: D25.1 Intramural leiomyoma of uterus (principal); N95.0 Postmenopausal bleeding; R10.2 Pelvic and perineal pain ==

== ENCOUNTER 2024-02-13 21:02 | Emergency (ER) | payer MEDICARE, MEDICAID ==
[~2024-02-13] VITALS: Ht 152.4 cm; Wt 106.8 kg
[2024-02-13 21:45] LABS: VENOUS BASE EXCESS -5.7 (-2.0-2.0); VENOUS HCO3 20.6 MMOL/L (23.0-27.0); VENOUS O2 SATURATION 83.8 % (60.0-80.0); VENOUS PARTIAL PRESSURE CO2 43.2 mmHg (38.0-50.0); VENOUS PARTIAL PRESSURE O2 50.2 mmHg (30.0-50.0); VENOUS PH 7.296 UNITS (7.330-7.430); VENOUS STANDARD HCO3 19.6 MMOL/L; VENOUS TOTAL CO2 21.9 MMOL/L (24.0-28.0)
[2024-02-13] MEDS: IPRATROPIUM 0.5MG/ALBUTEROL 2.5MG INH SOL UD 3ML (DUONEB) NEB ONE (21:46)
[2024-02-13 21:50] LABS: BASO % 0.1 % (0.0-1.0); HEMATOCRIT 37.2 % (36.0-47.0); HEMOGLOBIN 11.8 g/dl (12.0-15.5); LYMPH # 0.5 10^3/uL (1.5-5.0); LYMPH % 4.8 % (24.0-44.0); MEAN CORPUSCULAR HGB CONC 31.7 g/dl (32.0-36.5); MEAN CORPUSCULAR VOLUME 85.1 fl (80.0-96.0); MONO # 0.2 10^3/uL (0.0-0.8); MONO % 2.4 % (2.0-8.0); NEUTROPHILS # 8.7 10^3/uL (1.5-8.5); NEUTROPHILS % 92.2 % (36.0-66.0); PLATELET COUNT, AUTOMATED 219 10^3/uL (150-450); RED BLOOD COUNT 4.37 10^6/uL (4.00-5.40); WHITE BLOOD COUNT 9.5 10^3/uL (4.0-10.0)
[2024-02-13] MEDS: predniSONE 20 MG TAB PO ONE (22:19)
[2024-02-13 22:20] LABS: ALKALINE PHOSPHATASE 162 U/L (35-104); ALT/SGPT 18 U/L (7.0-40); AST/SGOT 10 U/L (<34); BILIRUBIN,DIRECT < 0.1 MG/DL (<0.4); BILIRUBIN,TOTAL 0.2 MG/DL (0.3-1.2); BLOOD UREA NITROGEN 26 MG/DL (9-23); CALCIUM LEVEL 8.6 MG/DL (8.5-10.1); CARBON DIOXIDE LEVEL 23 MMOL/L (20-31); CHLORIDE LEVEL 108 MMOL/L (98-107); CK-MB VALUE MASS < 1.0 NG/ML (<3.6); CPK CREATINE PHOSPHOKINASE 36 U/L (34-145); CREATININE FOR GFR 1.15 MG/DL (0.55-1.30); GLOMERULAR FILTRATION RATE 51.4 (>51); GLUCOSE, FASTING 361 MG/DL (60-100); MB/CK RELATIVE INDEX 2.77 (< OR =4); POTASSIUM SERUM 4.8 MMOL/L (3.5-5.1); SODIUM LEVEL 139 MMOL/L (136-145); TOTAL PROTEIN 6.9 G/DL (5.7-8.2)
[2024-02-13] MEDS ORDERED: ISOVUE-370 76% 100ML VIAL As Ordered ONE (22:43)
[2024-02-13] MEDS: HumuLIN R (REGULAR) INSULIN (NovoLIN R) **100U/ML** PER UNIT IV ONE (23:03)
[2024-02-13] MEDS: NS 1,000 ML IV ONE (23:03)
[2024-02-13 23:31] LABS: HEMOGLOBIN A1c 6.2 % (4.0-6.0)
[2024-02-13 23:42] LABS: CK-MB VALUE MASS < 1.0 NG/ML (<3.6)
[2024-02-13 23:59] LABS: CPK CREATINE PHOSPHOKINASE 32 U/L (34-145); MB/CK RELATIVE INDEX 3.12 (< OR =4)
[2024-02-14 00:31] VITALS: BP 141/67; TEMP 97.6; O2SAT 97
== END 2024-02-14 00:38 | disposition home or self-care (01) ==
LOC: EDBD 21:02 → M ED 21:02
DX: E11.65 Type 2 diabetes mellitus with hyperglycemia (principal); J06.9 Acute upper respiratory infection, unspecified; I25.119 Atherosclerotic heart disease of native coronary artery with unspecified angina pectoris; E78.5 Hyperlipidemia, unspecified; J45.909 Unspecified asthma, uncomplicated; I12.9 Hypertensive chronic kidney disease with stage 1 through stage 4 chronic kidney disease, or unspecified chronic kidney disease; F31.9 Bipolar disorder, unspecified; Z87.891 Personal history of nicotine dependence; Z88.8 Allergy status to other drugs, medicaments and biological substances; Z79.51 Long term (current) use of inhaled steroids; Z79.1 Long term (current) use of non-steroidal anti-inflammatories (NSAID); Z79.4 Long term (current) use of insulin; Z79.899 Other long term (current) drug therapy
CPT/HCPCS: 71045; 71275; 80048; 80076; 82550; 82553; 82803; 83036; 83605; 84484; 85025; 87040; 87486; 87581; 87633; 87798; 93005; 93041; 94640; 94760; 96361; 96374; 99285; J1815; J7512; Q9967

== ENCOUNTER → 2024-02-23 | Outpatient (REF) | payer MEDICARE, MEDICAID ==
[2024-02-23 18:38] LABS: APPEARANCE, URINE CLEAR (CLEAR); BACTERIA, URINE AUTO NEGATIVE (NEGATIVE); BILIRUBIN, URINE AUTO NEGATIVE (NEGATIVE); BLOOD, URINE BLOOD NEGATIVE (NEGATIVE); COLOR, URINE YELLOW (YELLOW); GLUCOSE, URINE (UA) AUTO NEGATIVE (NEGATIVE); KETONE, URINE AUTO NEGATIVE (NEGATIVE); LEUKOCYTE ESTERASE, URINE AUTO NEGATIVE (NEGATIVE); NITRITE, URINE AUTO NEGATIVE (NEGATIVE); PROTEIN, URINE AUTO NEGATIVE (NEGATIVE); RBC, URINE AUTO 0 /HPF (0-3); SPECIFIC GRAVITY URINE AUTO 1.014 (1.002-1.035); SQUAMOUS EPITHELIAL CELL UR AU 2 /HPF (0-6); UROBILINOGEN, URINE AUTO 0.2 mg/dL (0.0-2.0); WBC, URINE AUTO 0 /HPF (0-3)
== END ==
LOC: M LAB REF 18:26
PROVIDERS: ATTEND Physician Assistant Medical
DX: N39.0 Urinary tract infection, site not specified (principal)

== ENCOUNTER 2024-03-12 11:07 | Emergency (ER) | payer MEDICARE, MEDICAID ==
[~2024-03-12] VITALS: Ht 152.4 cm; Wt 237.0 kg
[2024-03-12] MEDS: LIDOCAINE 5% (LIDODERM) PATCH TD ONE (13:59)
[2024-03-12] MEDS: ACETAMINOPH W/CODEINE #3 TAB UD PO ONE (13:59)
[2024-03-12 14:07] LABS: BASO % 0.5 % (0.0-1.0); EOS # 0.2 10^3/uL (0.0-0.5); EOS % 2.1 % (0.0-3.0); HEMATOCRIT 38.4 % (36.0-47.0); HEMOGLOBIN 12.2 g/dl (12.0-15.5); LYMPH # 1.4 10^3/uL (1.5-5.0); LYMPH % 16.4 % (24.0-44.0); MEAN CORPUSCULAR HEMOGLOBIN 27.2 pg (27.0-33.0); MEAN CORPUSCULAR HGB CONC 31.8 g/dl (32.0-36.5); MEAN CORPUSCULAR VOLUME 85.7 fl (80.0-96.0); MONO # 0.5 10^3/uL (0.0-0.8); MONO % 6.2 % (2.0-8.0); NEUTROPHILS # 6.5 10^3/uL (1.5-8.5); NEUTROPHILS % 74.2 % (36.0-66.0); PLATELET COUNT, AUTOMATED 232 10^3/uL (150-450); RED BLOOD COUNT 4.48 10^6/uL (4.00-5.40); WHITE BLOOD COUNT 8.7 10^3/uL (4.0-10.0)
[2024-03-12 16:39] LABS: CK-MB VALUE MASS < 1.0 NG/ML (<3.6)
[2024-03-12 16:44] LABS: FREE T4 0.91 NG/DL (0.89-1.76); THYROID STIMULATING HORMONE 2.124 uIU/ML (0.55-4.78)
[2024-03-12 17:00] LABS: LIPASE 30 U/L (12-53)
[2024-03-12 17:02] LABS: CPK CREATINE PHOSPHOKINASE 41 U/L (34-145); MB/CK RELATIVE INDEX 2.43 (< OR =4)
[2024-03-12 17:04] LABS: ALKALINE PHOSPHATASE 162 U/L (35-104); ALT/SGPT 15 U/L (7.0-40); AST/SGOT 15 U/L (<34); BILIRUBIN,DIRECT 0.1 MG/DL (<0.4); BILIRUBIN,TOTAL 0.5 MG/DL (0.3-1.2); BLOOD UREA NITROGEN 19 MG/DL (9-23); CALCIUM LEVEL 9.5 MG/DL (8.5-10.1); CARBON DIOXIDE LEVEL 26 MMOL/L (20-31); CHLORIDE LEVEL 109 MMOL/L (98-107); CREATININE FOR GFR 1.02 MG/DL (0.55-1.30); GLUCOSE, FASTING 99 MG/DL (60-100); POTASSIUM SERUM 4.1 MMOL/L (3.5-5.1); SODIUM LEVEL 143 MMOL/L (136-145)
[2024-03-12 18:04] LABS: CK-MB VALUE MASS < 1.0 NG/ML (<3.6)
[2024-03-12 18:06] LABS: CPK CREATINE PHOSPHOKINASE 38 U/L (34-145); MB/CK RELATIVE INDEX 2.63 (< OR =4)
[2024-03-12 18:30] VITALS: BP 146/72; TEMP 97.6; O2SAT 97
[2024-03-12] MEDS ORDERED: LIDO1PAD TOP (18:45)
== END 2024-03-12 18:55 | disposition home or self-care (01) ==
LOC: EDBD 11:07 → M ED 11:07
DX: M54.14 Radiculopathy, thoracic region (principal); E11.9 Type 2 diabetes mellitus without complications; I12.9 Hypertensive chronic kidney disease with stage 1 through stage 4 chronic kidney disease, or unspecified chronic kidney disease; F25.0 Schizoaffective disorder, bipolar type; Z88.8 Allergy status to other drugs, medicaments and biological substances; Z79.51 Long term (current) use of inhaled steroids; Z79.1 Long term (current) use of non-steroidal anti-inflammatories (NSAID); Z79.4 Long term (current) use of insulin; Z79.899 Other long term (current) drug therapy

== ENCOUNTER → 2024-04-02 | Outpatient (CLI) | payer MEDICARE, MEDICAID ==
[~2024-04-02] MED LIST changes: -ALIG4CAP PO; +ALIG4CAP3 PO; +LIDO1PAD TOP
== END ==
LOC: M PAIN 17:30
PROVIDERS: ATTEND Nurse Practitioner Family
DX: M79.18 Myalgia, other site (principal); E78.5 Hyperlipidemia, unspecified; E11.3292 Type 2 diabetes mellitus with mild nonproliferative diabetic retinopathy without macular edema, left eye; F32.A Depression, unspecified; I12.9 Hypertensive chronic kidney disease with stage 1 through stage 4 chronic kidney disease, or unspecified chronic kidney disease; J45.909 Unspecified asthma, uncomplicated; M47.814 Spondylosis without myelopathy or radiculopathy, thoracic region; E11.22 Type 2 diabetes mellitus with diabetic chronic kidney disease; N18.30 Chronic kidney disease, stage 3 unspecified; G47.33 Obstructive sleep apnea (adult) (pediatric); E73.9 Lactose intolerance, unspecified; Z87.891 Personal history of nicotine dependence; Z79.52 Long term (current) use of systemic steroids; Z79.899 Other long term (current) drug therapy; Z88.6 Allergy status to analgesic agent; Z88.8 Allergy status to other drugs, medicaments and biological substances

== ENCOUNTER 2024-04-09 21:04 | Emergency (ER) | payer MEDICARE, MEDICAID ==
[~2024-04-09] VITALS: Ht 152.4 cm; Wt 107.7 kg
[~2024-04-09 21:04] MED LIST changes: -CEFD1CAP9 PO; -LANTINJ4
[2024-04-09] MEDS ORDERED: LANTINJ4 (21:17)
[2024-04-09 21:58] LABS: BASO % 0.5 % (0.0-1.0); EOS # 0.4 10^3/uL (0.0-0.5); EOS % 4.1 % (0.0-3.0); HEMATOCRIT 37.7 % (36.0-47.0); HEMOGLOBIN 12.1 g/dl (12.0-15.5); LYMPH # 1.7 10^3/uL (1.5-5.0); LYMPH % 19.7 % (24.0-44.0); MEAN CORPUSCULAR HEMOGLOBIN 27.5 pg (27.0-33.0); MEAN CORPUSCULAR HGB CONC 32.1 g/dl (32.0-36.5); MEAN CORPUSCULAR VOLUME 85.7 fl (80.0-96.0); MONO # 0.5 10^3/uL (0.0-0.8); MONO % 5.3 % (2.0-8.0); NEUTROPHILS % 69.8 % (36.0-66.0); PLATELET COUNT, AUTOMATED 236 10^3/uL (150-450); WHITE BLOOD COUNT 8.6 10^3/uL (4.0-10.0)
[2024-04-09 21:59] LABS: VENOUS BASE EXCESS 1.8 (-2.0-2.0); VENOUS HCO3 27.5 MMOL/L (23.0-27.0); VENOUS O2 SATURATION 77.2 % (60.0-80.0); VENOUS PARTIAL PRESSURE CO2 47.2 mmHg (38.0-50.0); VENOUS PARTIAL PRESSURE O2 41.4 mmHg (30.0-50.0); VENOUS PH 7.383 UNITS (7.330-7.430); VENOUS STANDARD HCO3 25.6 MMOL/L; VENOUS TOTAL CO2 28.9 MMOL/L (24.0-28.0)
[2024-04-09 22:09] LABS: KETONE, URINE AUTO RFX NEGATIVE (NEGATIVE); RBC, URINE AUTO RFX 3 /HPF (0-3); SQUAM EPITHELIAL CELL UR AURFX 4 /HPF (0-6); TRANSITIONAL EPITHELIAL AU RFX <1 /HPF
[2024-04-09 22:12] LABS: NITRITE, URINE AUTO RFX POSITIVE (NEGATIVE)
[2024-04-09 22:13] LABS: LEUKOCYTE ESTERASE UR AUTO RFX 1+ (NEGATIVE); WBC, URINE AUTO RFX 102 /HPF (0-3)
[2024-04-09 22:28] LABS: LIPASE 28 U/L (12-53)
[2024-04-09 22:30] LABS: ACETONE/KETONE 0.07 MMOL/L (0.02-0.27); ALKALINE PHOSPHATASE 181 U/L (35-104); ALT/SGPT 12 U/L (7.0-40); AST/SGOT < 8 U/L (<34); BILIRUBIN,DIRECT < 0.1 MG/DL (<0.4); BILIRUBIN,TOTAL 0.2 MG/DL (0.3-1.2); BLOOD UREA NITROGEN 19 MG/DL (9-23); CALCIUM LEVEL 9.2 MG/DL (8.5-10.1); CARBON DIOXIDE LEVEL 29 MMOL/L (20-31); CHLORIDE LEVEL 107 MMOL/L (98-107); GLOMERULAR FILTRATION RATE > 60.0 (>51); GLUCOSE, FASTING 252 MG/DL (60-100); MAGNESIUM LEVEL 1.9 MG/DL (1.8-2.4); POTASSIUM SERUM 3.8 MMOL/L (3.5-5.1); SODIUM LEVEL 142 MMOL/L (136-145); TOTAL PROTEIN 6.9 G/DL (5.7-8.2)
[2024-04-09 23:25] LABS: HEMOGLOBIN A1c 6.2 % (4.0-6.0)
[2024-04-09] MEDS ORDERED: CEFD1CAP9 PO (23:54)
[2024-04-10] MEDS: CEFDINIR 300 MG CAP (OMNICEF) PO ONE (00:12)
[2024-04-10 00:15] VITALS: BP 158/81; TEMP 97.6; O2SAT 100
== END 2024-04-10 00:16 | disposition home or self-care (01) ==
LOC: M ED 21:04 → EDBD 21:04 → M ED 04-10 00:16
DX: E11.65 Type 2 diabetes mellitus with hyperglycemia (principal); N39.0 Urinary tract infection, site not specified; I44.7 Left bundle-branch block, unspecified; I45.81 Long QT syndrome; I12.9 Hypertensive chronic kidney disease with stage 1 through stage 4 chronic kidney disease, or unspecified chronic kidney disease; E78.5 Hyperlipidemia, unspecified; F25.0 Schizoaffective disorder, bipolar type; M79.18 Myalgia, other site; G89.29 Other chronic pain; M54.2 Cervicalgia; E11.3292 Type 2 diabetes mellitus with mild nonproliferative diabetic retinopathy without macular edema, left eye; F32.A Depression, unspecified; J45.909 Unspecified asthma, uncomplicated; M47.814 Spondylosis without myelopathy or radiculopathy, thoracic region; E11.22 Type 2 diabetes mellitus with diabetic chronic kidney disease; N18.30 Chronic kidney disease, stage 3 unspecified; G47.33 Obstructive sleep apnea (adult) (pediatric); Z86.73 Personal history of transient ischemic attack (TIA), and cerebral infarction without residual deficits; Z88.8 Allergy status to other drugs, medicaments and biological substances; Z79.51 Long term (current) use of inhaled steroids; Z79.52 Long term (current) use of systemic steroids; Z79.1 Long term (current) use of non-steroidal anti-inflammatories (NSAID); Z79.2 Long term (current) use of antibiotics; Z79.4 Long term (current) use of insulin; Z79.899 Other long term (current) drug therapy; Z87.891 Personal history of nicotine dependence; Z88.6 Allergy status to analgesic agent
CPT/HCPCS: 36415; 74018; 80047; 80048; 80076; 81001; 82010; 82803; 83036; 83690; 83735; 85025; 87088; 87186; 93005; 93041; 94760; 99285; G0463

== ENCOUNTER → 2024-04-09 | Outpatient (CLI) | payer MEDICARE, MEDICAID ==
[~2024-04-09] MED LIST changes: +CEFD1CAP9 PO; +LANTINJ4
== END ==
LOC: M PAIN 10:00
PROVIDERS: ATTEND Nurse Practitioner Family
DX: M79.18 Myalgia, other site (principal); G89.29 Other chronic pain; M54.2 Cervicalgia; E78.5 Hyperlipidemia, unspecified; E11.3292 Type 2 diabetes mellitus with mild nonproliferative diabetic retinopathy without macular edema, left eye; F32.A Depression, unspecified; I12.9 Hypertensive chronic kidney disease with stage 1 through stage 4 chronic kidney disease, or unspecified chronic kidney disease; J45.909 Unspecified asthma, uncomplicated; M47.814 Spondylosis without myelopathy or radiculopathy, thoracic region; E11.22 Type 2 diabetes mellitus with diabetic chronic kidney disease; N18.30 Chronic kidney disease, stage 3 unspecified; G47.33 Obstructive sleep apnea (adult) (pediatric); E73.9 Lactose intolerance, unspecified; Z87.891 Personal history of nicotine dependence; Z79.52 Long term (current) use of systemic steroids; Z79.899 Other long term (current) drug therapy; Z88.6 Allergy status to analgesic agent; Z88.8 Allergy status to other drugs, medicaments and biological substances

== ENCOUNTER → 2024-04-26 | Outpatient (RCR) | payer MEDICARE, MEDICAID ==
[~2024-04-26] MED LIST changes: +CEFD1CAP9 PO; +LANTINJ4
== END ==
LOC: M PT 04-01 13:34
PROVIDERS: ATTEND Physician Assistant
DX: S29.012A Strain of muscle and tendon of back wall of thorax, initial encounter (principal)

== ENCOUNTER → 2024-05-06 | Outpatient (REF) | payer MEDICARE, MEDICAID | LOC: M SFHCWAGY 14:37 | PROVIDERS: ATTEND Obstetrics & Gynecology | DX: Z12.4 Encounter for screening for malignant neoplasm of cervix (principal); N95.2 Postmenopausal atrophic vaginitis ==

== ENCOUNTER → 2024-05-21 | Outpatient (REF) | payer MEDICARE, MEDICAID ==
[~2024-05-21] MED LIST changes: +VANC125C13 PO; -VANC125C3 PO
[2024-05-21 13:57] LABS: APPEARANCE, URINE HAZY (CLEAR); BACTERIA, URINE AUTO 1+ (NEGATIVE); BILIRUBIN, URINE AUTO NEGATIVE (NEGATIVE); BLOOD, URINE BLOOD NEGATIVE (NEGATIVE); COLOR, URINE YELLOW (YELLOW); GLUCOSE, URINE (UA) AUTO NEGATIVE (NEGATIVE); KETONE, URINE AUTO NEGATIVE (NEGATIVE); LEUKOCYTE ESTERASE, URINE AUTO 3+ (NEGATIVE); MUCUS, URINE SMALL (NEGATIVE); NITRITE, URINE AUTO NEGATIVE (NEGATIVE); PROTEIN, URINE AUTO NEGATIVE (NEGATIVE); RBC, URINE AUTO 1 /HPF (0-3); SPECIFIC GRAVITY URINE AUTO 1.004 (1.002-1.035); SQUAMOUS EPITHELIAL CELL UR AU 2 /HPF (0-6); UROBILINOGEN, URINE AUTO 0.2 mg/dL (0.0-2.0); WBC, URINE AUTO 34 /HPF (0-3)
== END ==
LOC: M SMT 13:24
PROVIDERS: ATTEND Urology
DX: Z87.440 Personal history of urinary (tract) infections (principal); Z79.899 Other long term (current) drug therapy

== ENCOUNTER 2024-05-22 08:30 | Outpatient (RCR) | payer MEDICARE, MEDICAID | END 2024-05-24 | LOC: M PT 08:30 | PROVIDERS: ATTEND Physician Assistant | DX: S29.012A Strain of muscle and tendon of back wall of thorax, initial encounter (principal); X58.XXXA Exposure to other specified factors, initial encounter; Y92.9 Unspecified place or not applicable ==

== ENCOUNTER → 2024-06-05 | Outpatient (CLI) | payer MEDICARE, MEDICAID ==
[2024-06-05 17:19] LABS: CALCIUM LEVEL 9.6 MG/DL (8.5-10.1); CREATININE FOR GFR 1.28 MG/DL (0.55-1.30); GLOMERULAR FILTRATION RATE 45.4 (>51); POTASSIUM SERUM 4.3 MMOL/L (3.5-5.1)
== END ==
LOC: M PLALAB 14:59
DX: I10 Essential (primary) hypertension (principal)

== ENCOUNTER → 2024-06-05 | Outpatient (CLI) | payer MEDICARE, MEDICAID ==
[2024-06-05 17:22] LABS: ALBUMIN 3.1 G/DL (3.2-5.2); BILIRUBIN,TOTAL 0.3 MG/DL (0.3-1.2); CALCIUM LEVEL 9.6 MG/DL (8.5-10.1); CREATININE FOR GFR 1.24 MG/DL (0.55-1.30); GLOMERULAR FILTRATION RATE 47.1 (>51); POTASSIUM SERUM 4.3 MMOL/L (3.5-5.1); TOTAL PROTEIN 6.9 G/DL (5.7-8.2)
[2024-06-05 17:37] LABS: HEMATOCRIT 38.5 % (36.0-47.0); HEMOGLOBIN 12.2 g/dl (12.0-15.5); MEAN CORPUSCULAR HEMOGLOBIN 26.6 pg (27.0-33.0); MEAN CORPUSCULAR HGB CONC 31.7 g/dl (32.0-36.5); MEAN CORPUSCULAR VOLUME 84.1 fl (80.0-96.0); PLATELET COUNT, AUTOMATED 238 10^3/uL (150-450); RED BLOOD COUNT 4.58 10^6/uL (4.00-5.40); WHITE BLOOD COUNT 11.3 10^3/uL (4.0-10.0)
[2024-06-05 17:48] LABS: APPEARANCE, URINE HAZY (CLEAR); BACTERIA, URINE AUTO NEGATIVE (NEGATIVE); BILIRUBIN, URINE AUTO NEGATIVE (NEGATIVE); BLOOD, URINE BLOOD NEGATIVE (NEGATIVE); COLOR, URINE YELLOW (YELLOW); GLUCOSE, URINE (UA) AUTO NEGATIVE (NEGATIVE); KETONE, URINE AUTO NEGATIVE (NEGATIVE); LEUKOCYTE ESTERASE, URINE AUTO 1+ (NEGATIVE); MUCUS, URINE SMALL (NEGATIVE); NITRITE, URINE AUTO NEGATIVE (NEGATIVE); PROTEIN, URINE AUTO NEGATIVE (NEGATIVE); RBC, URINE AUTO 2 /HPF (0-3); SPECIFIC GRAVITY URINE AUTO 1.023 (1.002-1.035); SQUAMOUS EPITHELIAL CELL UR AU 6 /HPF (0-6); UROBILINOGEN, URINE AUTO 0.2 mg/dL (0.0-2.0); WBC, URINE AUTO 45 /HPF (0-3)
== END ==
LOC: M PLALAB 15:02
PROVIDERS: ATTEND Urology
DX: N39.3 Stress incontinence (female) (male) (principal); N39.0 Urinary tract infection, site not specified

== ENCOUNTER → 2024-06-11 | Outpatient (CLI) | payer MEDICARE, MEDICAID | LOC: M WHC 13:34 | PROVIDERS: ATTEND Physician Assistant | DX: Z12.31 Encounter for screening mammogram for malignant neoplasm of breast (principal) ==

== ENCOUNTER 2024-06-21 12:46 | Outpatient (RCR) | payer MEDICARE, MEDICAID ==
[~2024-06-21 12:46] MED LIST changes: -HUMA100I5; +HUMA100I5 SC; -LANTINJ4; +LANTINJ4 SC; -NITR0.4S14; +NITR0.4S14 SL; -SEMA0.257; +SEMA0.257 SC; -ZONI50CA11
[2024-06-23] MEDS ORDERED: AMOX875T2 PO (16:09)
[2024-06-23] MEDS ORDERED: FLUC150T9 PO (16:11)
[2024-06-24] MEDS ORDERED: LOSA50TA28 PO (13:09)
[2024-06-24] MEDS ORDERED: ERGO500029 PO (13:09)
[2024-06-24] MEDS ORDERED: FLUTISP (13:09)
[2024-06-24] MEDS ORDERED: BENZ1TAB5 PO (13:09)
[2024-06-24] MEDS ORDERED: CETI-24 PO (13:09)
[2024-06-24] MEDS ORDERED: CRAN1CHW PO (13:28)
[2024-06-24] MEDS ORDERED: ACET-716 PO (13:28)
[2024-06-24] MEDS ORDERED: NITR50CA34 PO (13:28)
== END 2024-06-24 ==
LOC: M PT 12:46
PROVIDERS: ATTEND Physician Assistant
DX: S29.012D Strain of muscle and tendon of back wall of thorax, subsequent encounter (principal)

== ENCOUNTER 2024-06-23 12:55 | Emergency (ER) | payer MEDICARE, MEDICAID ==
[~2024-06-23] VITALS: Ht 152.4 cm; Wt 106.6 kg
[2024-06-23] MEDS ORDERED: AMOX875T2 PO (16:09)
[2024-06-23] MEDS ORDERED: FLUC150T9 PO (16:11)
[2024-06-23 16:24] VITALS: BP 127/59; TEMP 97.1; O2SAT 97
[2024-06-23] MEDS: AUGMENTIN 875 MG TAB PO ONE (16:33)
[2024-06-23 16:50] LABS: KETONE, URINE AUTO RFX NEGATIVE (NEGATIVE); MUCUS, URINE RFX SMALL (NEGATIVE); NITRITE, URINE AUTO RFX NEGATIVE (NEGATIVE); RBC, URINE AUTO RFX 1 /HPF (0-3); SQUAM EPITHELIAL CELL UR AURFX 2 /HPF (0-6); WBC, URINE AUTO RFX 5 /HPF (0-3)
[2024-06-23 16:52] LABS: LEUKOCYTE ESTERASE UR AUTO RFX 1+ (NEGATIVE)
[2024-06-24] MEDS ORDERED: FLUTISP (13:09)
[2024-06-24] MEDS ORDERED: ERGO500029 PO (13:09)
[2024-06-24] MEDS ORDERED: BENZ1TAB5 PO (13:09)
[2024-06-24] MEDS ORDERED: CETI-24 PO (13:09)
[2024-06-24] MEDS ORDERED: LOSA50TA28 PO (13:09)
[2024-06-24] MEDS ORDERED: CRAN1CHW PO (13:28)
[2024-06-24] MEDS ORDERED: NITR50CA34 PO (13:28)
[2024-06-24] MEDS ORDERED: ACET-716 PO (13:28)
== END 2024-06-23 16:47 | disposition home or self-care (01) ==
LOC: EDBD 12:55 → M ED 12:55
DX: Q38.3 Other congenital malformations of tongue (principal); E11.9 Type 2 diabetes mellitus without complications; E78.5 Hyperlipidemia, unspecified; J45.909 Unspecified asthma, uncomplicated; I12.9 Hypertensive chronic kidney disease with stage 1 through stage 4 chronic kidney disease, or unspecified chronic kidney disease; G47.33 Obstructive sleep apnea (adult) (pediatric); F31.9 Bipolar disorder, unspecified; Z87.891 Personal history of nicotine dependence; Z88.8 Allergy status to other drugs, medicaments and biological substances; Z79.1 Long term (current) use of non-steroidal anti-inflammatories (NSAID); Z79.899 Other long term (current) drug therapy; Z79.51 Long term (current) use of inhaled steroids; Z79.4 Long term (current) use of insulin

== ENCOUNTER → 2024-06-25 | Outpatient (REF) | payer MEDICARE, MEDICAID ==
[~2024-06-25] MED LIST changes: +BENZ1TAB5 PO; +CETI-24 PO; +CRAN1CHW PO; +FLUC150T9 PO; +FLUTISP; +LOSA50TA28 PO; +NITR50CA34 PO
[2024-06-25 15:10] LABS: FOLATE 10.6 NG/ML (>5.4)
== END ==
LOC: M SFHCADAM 10:55
PROVIDERS: ATTEND Physician Assistant
DX: R68.2 Dry mouth, unspecified (principal)

== ENCOUNTER 2024-06-26 13:27 | Outpatient (RCR) | payer MEDICARE, MEDICAID ==
[~2024-06-26 13:27] MED LIST changes: +LIFI1DRO4 OU; -NYST-13 TOP; +NYST0.1C TOP; -XIID5DRO OU
== END 2024-07-24 ==
LOC: M PT 13:27
PROVIDERS: ATTEND Physician Assistant
DX: S29.012A Strain of muscle and tendon of back wall of thorax, initial encounter (principal); X58.XXXA Exposure to other specified factors, initial encounter; Y92.9 Unspecified place or not applicable

== ENCOUNTER → 2024-07-01 | Day surgery (SDC) | payer MEDICARE, MEDICAID ==
[~2024-07-01] VITALS: Ht 152.4 cm; Wt 108.4 kg
[~2024-07-01] MED LIST changes: +LIDOCAINE 2% 100MG/5ML SDV (FOR ANES.) As Ordered ONE; -LIFI1DRO4 OU; +NYST-13 TOP; -NYST0.1C TOP; +ONDANSETRON 4MG 2ML VIAL As Ordered ONE; +XIID5DRO OU; +ceFAZolin SOD 2 GM IV ONCE IV ONE; +fentaNYL 100 MCG/2 ML INJECTION As Ordered ONE; +propofoL 200 MG/20 ML VIAL As Ordered ONE
[2024-07-01 08:00] VITALS: BP 134/64; TEMP 97.8; O2SAT 98
[2024-07-01] MEDS: LIDOCAINE 2% 5ML JELLY UROJET As Ordered ONE (08:11)
== END | disposition home or self-care (01) ==
LOC: M SDC 07:07
PROVIDERS: ATTEND Urology
DX: N39.3 Stress incontinence (female) (male) (principal); Z53.09 Procedure and treatment not carried out because of other contraindication

== ENCOUNTER 2024-07-07 14:30 | Emergency (ER) | payer MEDICARE, MEDICAID ==
[~2024-07-07 14:30] MED LIST changes: -LIDOCAINE 2% 100MG/5ML SDV (FOR ANES.) As Ordered ONE; -ONDANSETRON 4MG 2ML VIAL As Ordered ONE; -ceFAZolin SOD 2 GM IV ONCE IV ONE; -fentaNYL 100 MCG/2 ML INJECTION As Ordered ONE; -propofoL 200 MG/20 ML VIAL As Ordered ONE
[2024-07-07 15:32] LABS: BASO % 0.4 % (0.0-1.0); EOS # 0.2 10^3/uL (0.0-0.5); EOS % 2.2 % (0.0-3.0); HEMATOCRIT 37.4 % (36.0-47.0); HEMOGLOBIN 11.8 g/dl (12.0-15.5); LYMPH # 1.4 10^3/uL (1.5-5.0); MEAN CORPUSCULAR HEMOGLOBIN 25.9 pg (27.0-33.0); MEAN CORPUSCULAR HGB CONC 31.6 g/dl (32.0-36.5); MEAN CORPUSCULAR VOLUME 82.2 fl (80.0-96.0); MONO # 0.6 10^3/uL (0.0-0.8); MONO % 6.5 % (2.0-8.0); NEUTROPHILS # 6.7 10^3/uL (1.5-8.5); NEUTROPHILS % 74.2 % (36.0-66.0); PLATELET COUNT, AUTOMATED 239 10^3/uL (150-450); RED BLOOD COUNT 4.55 10^6/uL (4.00-5.40)
[2024-07-07] MEDS ORDERED: ISOVUE-370 76% 100ML VIAL As Ordered ONE (15:56)
[2024-07-07 17:31] VITALS: BP 149/81; TEMP 98.1; O2SAT 99
== END 2024-07-07 17:33 | disposition home or self-care (01) ==
LOC: M ED 14:30 → EDBD 14:30 → M ED 17:33
DX: K13.70 Unspecified lesions of oral mucosa (principal); E11.9 Type 2 diabetes mellitus without complications; E78.5 Hyperlipidemia, unspecified; N18.30 Chronic kidney disease, stage 3 unspecified; Z88.6 Allergy status to analgesic agent; Z88.8 Allergy status to other drugs, medicaments and biological substances; Z79.1 Long term (current) use of non-steroidal anti-inflammatories (NSAID); Z79.4 Long term (current) use of insulin; Z79.51 Long term (current) use of inhaled steroids; Z79.899 Other long term (current) drug therapy
CPT/HCPCS: 36415; 70491; 80047; 85025; 99284; Q9967

== ENCOUNTER → 2024-07-10 | Outpatient (REF) | payer MEDICARE, MEDICAID ==
[2024-07-10 13:41] LABS: PERCENT SATURATION 10.3 % (13.2-45.0)
[2024-07-10 13:45] LABS: FERRITIN 54.6 NG/ML (7.3-270.7)
[2024-07-10 13:51] LABS: FOLATE 14.6 NG/ML (>5.4)
== END ==
LOC: M SFHCADAM 10:35
PROVIDERS: ATTEND Physician Assistant
DX: K14.0 Glossitis (principal); D50.9 Iron deficiency anemia, unspecified

== ENCOUNTER → 2024-07-23 | Outpatient (REF) | payer MEDICARE, MEDICAID ==
[~2024-07-23] MED LIST changes: +LIFI1DRO4 OU; -NYST-13 TOP; +NYST0.1C TOP; -XIID5DRO OU
[2024-07-23 17:22] LABS: BASO % 0.4 % (0.0-1.0); EOS # 0.2 10^3/uL (0.0-0.5); EOS % 2.2 % (0.0-3.0); HEMOGLOBIN 11.6 g/dl (12.0-15.5); LYMPH # 1.6 10^3/uL (1.5-5.0); LYMPH % 14.4 % (24.0-44.0); MEAN CORPUSCULAR HEMOGLOBIN 25.9 pg (27.0-33.0); MEAN CORPUSCULAR HGB CONC 30.5 g/dl (32.0-36.5); MEAN CORPUSCULAR VOLUME 84.8 fl (80.0-96.0); MONO # 0.8 10^3/uL (0.0-0.8); NEUTROPHILS # 8.4 10^3/uL (1.5-8.5); NEUTROPHILS % 75.5 % (36.0-66.0); PLATELET COUNT, AUTOMATED 263 10^3/uL (150-450); RED BLOOD COUNT 4.48 10^6/uL (4.00-5.40); WHITE BLOOD COUNT 11.1 10^3/uL (4.0-10.0)
[2024-07-23 17:39] LABS: APPEARANCE, URINE HAZY (CLEAR); BACTERIA, URINE AUTO 1+ (NEGATIVE); BILIRUBIN, URINE AUTO NEGATIVE (NEGATIVE); BLOOD, URINE BLOOD NEGATIVE (NEGATIVE); COLOR, URINE YELLOW (YELLOW); GLUCOSE, URINE (UA) AUTO NEGATIVE (NEGATIVE); KETONE, URINE AUTO NEGATIVE (NEGATIVE); LEUKOCYTE ESTERASE, URINE AUTO TRACE (NEGATIVE); MUCUS, URINE SMALL (NEGATIVE); NITRITE, URINE AUTO POSITIVE (NEGATIVE); PROTEIN, URINE AUTO 1+ mg/dL (NEGATIVE); RBC, URINE AUTO 1 /HPF (0-3); SPECIFIC GRAVITY URINE AUTO 1.017 (1.002-1.035); SQUAMOUS EPITHELIAL CELL UR AU 0 /HPF (0-6); UROBILINOGEN, URINE AUTO 0.2 mg/dL (0.0-2.0); WBC, URINE AUTO 14 /HPF (0-3)
[2024-07-23 17:50] LABS: ALBUMIN 3.3 G/DL (3.2-5.2); BILIRUBIN,TOTAL 0.4 MG/DL (0.3-1.2); CALCIUM LEVEL 9.8 MG/DL (8.5-10.1); CREATININE FOR GFR 1.01 MG/DL (0.55-1.30); GLOMERULAR FILTRATION RATE 64.1 (>51); POTASSIUM SERUM 4.3 MMOL/L (3.5-5.1)
== END ==
LOC: M SFHCADAM 15:10
PROVIDERS: ATTEND Physician Assistant
DX: N30.00 Acute cystitis without hematuria (principal); Z86.19 Personal history of other infectious and parasitic diseases

== ENCOUNTER → 2024-08-13 | Outpatient (CLI) | payer MEDICARE ==
[~2024-08-13] MED LIST changes: +AMMO12CR4 TOP; -AMMO12CR7 TOP; +ARIP960S IM; +SEMA1PEN2 SQ
[2024-08-13 15:37] LABS: HEMOGLOBIN 12.3 g/dl (12.0-15.5); MEAN CORPUSCULAR HEMOGLOBIN 25.7 pg (27.0-33.0); MEAN CORPUSCULAR HGB CONC 30.8 g/dl (32.0-36.5); MEAN CORPUSCULAR VOLUME 83.5 fl (80.0-96.0); PLATELET COUNT, AUTOMATED 276 10^3/uL (150-450); RED BLOOD COUNT 4.79 10^6/uL (4.00-5.40); WHITE BLOOD COUNT 10.8 10^3/uL (4.0-10.0)
[2024-08-13 15:41] LABS: ALBUMIN 3.4 G/DL (3.2-5.2); BILIRUBIN,TOTAL 0.3 MG/DL (0.3-1.2); CALCIUM LEVEL 9.2 MG/DL (8.5-10.1); CREATININE FOR GFR 1.2 MG/DL (0.55-1.30); GLOMERULAR FILTRATION RATE 52.1 (>51); POTASSIUM SERUM 4.2 MMOL/L (3.5-5.1); TOTAL PROTEIN 7.1 G/DL (5.7-8.2)
== END ==
LOC: M PLALAB 13:08
PROVIDERS: ATTEND Urology
DX: N39.3 Stress incontinence (female) (male) (principal)

== ENCOUNTER → 2024-09-13 | Outpatient (CLI) | payer MEDICARE, MEDICAID ==
[~2024-09-13] MED LIST changes: +LISI40TA10; +LISI40TA10 PO; -LISI40TA4; -LISI40TA4 PO; -PRAV40TA2 PO; +PRAV40TA85 PO; -PRAV80TA2 PO; +PRAV80TA75 PO
== END ==
LOC: M RAD 08:01
PROVIDERS: ATTEND Physician Assistant
DX: M54.16 Radiculopathy, lumbar region (principal); M54.50 Low back pain, unspecified

== ENCOUNTER → 2024-10-23 | Outpatient (CLI) | payer MEDICARE, MEDICAID | LOC: M SOG 06:57 | PROVIDERS: ATTEND Orthopaedic Surgery | DX: Z96.653 Presence of artificial knee joint, bilateral (principal) ==

== ENCOUNTER → 2024-12-05 | Outpatient (CLI) | payer MEDICARE, MEDICAID ==
[~2024-12-05] MED LIST changes: +METH-1100 PO; -METH-855 PO
[2024-12-05 16:02] LABS: CHOLESTEROL LEVEL 146.0 MG/DL (<200); CHOLESTEROL RISK RATIO 3.57 (<5); LDL CHOLESTEROL 66.0 MG/DL (<100); NON-HDL-C 105.2 MG/DL; TRIGLYCERIDES LEVEL 196.0 MG/DL (<150)
== END ==
LOC: M PLALAB 12:18
PROVIDERS: ATTEND Nurse Practitioner Family
DX: E78.5 Hyperlipidemia, unspecified (principal)

== ENCOUNTER → 2024-12-17 | Outpatient (REF) | payer MEDICARE, MEDICAID ==
[2024-12-17 18:48] LABS: APPEARANCE, URINE HAZY (CLEAR); BACTERIA, URINE AUTO 2+ (NEGATIVE); BILIRUBIN, URINE AUTO NEGATIVE (NEGATIVE); BLOOD, URINE BLOOD NEGATIVE (NEGATIVE); GLUCOSE, URINE (UA) AUTO 1+ mg/dL (NEGATIVE); KETONE, URINE AUTO NEGATIVE (NEGATIVE); LEUKOCYTE ESTERASE, URINE AUTO 2+ (NEGATIVE); MUCUS, URINE SMALL (NEGATIVE); NITRITE, URINE AUTO NEGATIVE (NEGATIVE); PROTEIN, URINE AUTO 1+ mg/dL (NEGATIVE); RBC, URINE AUTO 2 /HPF (0-3); SPECIFIC GRAVITY URINE AUTO 1.024 (1.002-1.035); SQUAMOUS EPITHELIAL CELL UR AU 4 /HPF (0-6); UROBILINOGEN, URINE AUTO 0.2 mg/dL (0.0-2.0); WBC, URINE AUTO 46 /HPF (0-3)
== END ==
LOC: M SMT 17:51
PROVIDERS: ATTEND Urology
DX: N39.3 Stress incontinence (female) (male) (principal)

== ENCOUNTER → 2025-01-13 | Outpatient (CLI) | payer MEDICARE, MEDICAID | LOC: M SOG 07:29 | PROVIDERS: ATTEND Neuromusculoskeletal Medicine, Sports Medicine | DX: M25.532 Pain in left wrist (principal); M25.531 Pain in right wrist ==

== ENCOUNTER 2025-01-31 16:32 | Emergency (ER) | payer MEDICARE, MEDICAID ==
[~2025-01-31] VITALS: Ht 152.4 cm; Wt 110.7 kg
[2025-01-31 16:57] VITALS: TEMP 97
[2025-01-31 17:10] LABS: BASO # 0.1 10^3/uL (0.0-0.2); BASO % 0.4 % (0.0-1.0); EOS # 0.4 10^3/uL (0.0-0.5); EOS % 3.1 % (0.0-3.0); LYMPH # 2.2 10^3/uL (1.5-5.0); LYMPH % 18.7 % (24.0-44.0); MONO # 0.7 10^3/uL (0.0-0.8); MONO % 5.7 % (2.0-8.0); NEUTROPHILS # 8.2 10^3/uL (1.5-8.5); NEUTROPHILS % 71.1 % (36.0-66.0); PLATELET COUNT, AUTOMATED 232 10^3/uL (150-450)
[2025-01-31 17:36] LABS: CALCIUM LEVEL 8.4 MG/DL (8.3-10.6); CARBON DIOXIDE LEVEL 26.0 MMOL/L (20-31); CHLORIDE LEVEL 104.0 MMOL/L (98-107); CK-MB VALUE MASS 1.5 NG/ML (<3.6); CPK CREATINE PHOSPHOKINASE 43.0 U/L (34-145); CREATININE FOR GFR 1.15 MG/DL (0.55-1.30); GLOMERULAR FILTRATION RATE 54.5 (>45); MB/CK RELATIVE INDEX 3.48 (< OR =4); POTASSIUM SERUM 5.4 MMOL/L (3.5-5.1); SODIUM LEVEL 141.0 MMOL/L (136-145)
[2025-01-31 17:41] LABS: D-DIMER QUANT 0.81 ug/mL (<0.5); INR 0.91
[2025-01-31] MEDS ORDERED: ISOVUE-370 76% 100 ML VIAL As Ordered ONE (18:32)
[2025-01-31 18:43] LABS: CK-MB VALUE MASS 1.3 NG/ML (<3.6)
[2025-01-31 18:44] LABS: CPK CREATINE PHOSPHOKINASE 33.0 U/L (34-145); MB/CK RELATIVE INDEX 3.93 (< OR =4)
[2025-01-31] MEDS: MORPHINE 2 MG/ML 1 ML VIAL IV PRN (19:43)
[2025-01-31 20:10] LABS: KETONE, URINE AUTO RFX NEGATIVE (NEGATIVE); NITRITE, URINE AUTO RFX NEGATIVE (NEGATIVE); RBC, URINE AUTO RFX 0 /HPF (0-3); SQUAM EPITHELIAL CELL UR AURFX 1 /HPF (0-6)
[2025-01-31 20:19] LABS: CK-MB VALUE MASS 1.5 NG/ML (<3.6)
[2025-01-31 20:20] LABS: CPK CREATINE PHOSPHOKINASE 26.0 U/L (34-145); MB/CK RELATIVE INDEX 5.76 (< OR =4)
[2025-01-31 20:26] LABS: LEUKOCYTE ESTERASE UR AUTO RFX 1+ (NEGATIVE); WBC, URINE AUTO RFX 37 /HPF (0-3)
[2025-02-01 02:31] VITALS: BP 154/65; O2SAT 97
== END 2025-02-01 03:00 | disposition home or self-care (01) ==
LOC: M ED 16:32
DX: R07.89 Other chest pain (principal); I47.29 Other ventricular tachycardia; I44.7 Left bundle-branch block, unspecified; E11.9 Type 2 diabetes mellitus without complications; E78.5 Hyperlipidemia, unspecified; J45.909 Unspecified asthma, uncomplicated; I12.9 Hypertensive chronic kidney disease with stage 1 through stage 4 chronic kidney disease, or unspecified chronic kidney disease; Z87.891 Personal history of nicotine dependence; Z88.6 Allergy status to analgesic agent; Z88.8 Allergy status to other drugs, medicaments and biological substances
CPT/HCPCS: 71045; 71275; 80048; 81001; 82550; 82553; 84484; 85025; 85379; 85610; 85730; 87088; 87186; 93005; 93041; 94760; 96374; 99285; Q9967

== ENCOUNTER → 2025-02-07 | Outpatient (REF) | payer MEDICARE, MEDICAID ==
[2025-02-07 13:53] LABS: APPEARANCE, URINE CLEAR (CLEAR); BACTERIA, URINE AUTO 1+ (NEGATIVE); BILIRUBIN, URINE AUTO NEGATIVE (NEGATIVE); BLOOD, URINE BLOOD NEGATIVE (NEGATIVE); GLUCOSE, URINE (UA) AUTO NEGATIVE (NEGATIVE); KETONE, URINE AUTO NEGATIVE (NEGATIVE); LEUKOCYTE ESTERASE, URINE AUTO TRACE (NEGATIVE); NITRITE, URINE AUTO NEGATIVE (NEGATIVE); PROTEIN, URINE AUTO NEGATIVE (NEGATIVE); RBC, URINE AUTO 1 /HPF (0-3); SPECIFIC GRAVITY URINE AUTO 1.006 (1.002-1.035); SQUAMOUS EPITHELIAL CELL UR AU 0 /HPF (0-6); UROBILINOGEN, URINE AUTO 0.2 mg/dL (0.0-2.0); WBC, URINE AUTO 5 /HPF (0-3)
== END ==
LOC: M SFHCADAM 13:06
PROVIDERS: ATTEND Physician Assistant
DX: R35.0 Frequency of micturition (principal)

== ENCOUNTER → 2025-02-13 | Outpatient (REF) | payer MEDICARE, MEDICAID ==
[~2025-02-13] MED LIST changes: +CLOT10TR11 MT; +XALA0.007 OU
[2025-02-13 13:48] LABS: PLATELET COUNT, AUTOMATED 253 10^3/uL (150-450)
[2025-02-13 14:32] LABS: ALT/SGPT 22.0 U/L (7.0-40); AST/SGOT 21.0 U/L (<34); CALCIUM LEVEL 9.2 MG/DL (8.3-10.6); CARBON DIOXIDE LEVEL 28.0 MMOL/L (20-31); CHLORIDE LEVEL 104.0 MMOL/L (98-107); CHOLESTEROL LEVEL 117.0 MG/DL (<200); CHOLESTEROL RISK RATIO 2.83 (<5); CREATININE FOR GFR 1.32 MG/DL (0.55-1.30); GLOMERULAR FILTRATION RATE 46.2 (>45); LDL CHOLESTEROL 52.2 MG/DL (<100); NON-HDL-C 75.8 MG/DL; POTASSIUM SERUM 4.6 MMOL/L (3.5-5.1); SODIUM LEVEL 143.0 MMOL/L (136-145); TRIGLYCERIDES LEVEL 118.0 MG/DL (<150)
== END ==
LOC: M SFHCADAM 09:48
PROVIDERS: ATTEND Physician Assistant
DX: Z01.818 Encounter for other preprocedural examination (principal); E11.22 Type 2 diabetes mellitus with diabetic chronic kidney disease; N18.32 Chronic kidney disease, stage 3b; I25.118 Atherosclerotic heart disease of native coronary artery with other forms of angina pectoris

== ENCOUNTER → 2025-02-24 | Outpatient (CLI) | payer MEDICARE, MEDICAID ==
[~2025-02-24] MED LIST changes: -BACTDSTA PO; +SULF-8 PO
[2025-02-24 10:24] LABS: APPEARANCE, URINE HAZY (CLEAR); BACTERIA, URINE AUTO 2+ (NEGATIVE); BILIRUBIN, URINE AUTO NEGATIVE (NEGATIVE); BLOOD, URINE BLOOD NEGATIVE (NEGATIVE); GLUCOSE, URINE (UA) AUTO NEGATIVE (NEGATIVE); KETONE, URINE AUTO NEGATIVE (NEGATIVE); LEUKOCYTE ESTERASE, URINE AUTO 2+ (NEGATIVE); NITRITE, URINE AUTO NEGATIVE (NEGATIVE); PROTEIN, URINE AUTO NEGATIVE (NEGATIVE); RBC, URINE AUTO 5 /HPF (0-3); SPECIFIC GRAVITY URINE AUTO 1.014 (1.002-1.035); SQUAMOUS EPITHELIAL CELL UR AU 6 /HPF (0-6); UROBILINOGEN, URINE AUTO 0.2 mg/dL (0.0-2.0); WBC, URINE AUTO 137 /HPF (0-3)
== END ==
LOC: M LAB 09:37
PROVIDERS: ATTEND Urology
DX: R39.9 Unspecified symptoms and signs involving the genitourinary system (principal)

== ENCOUNTER → 2025-03-04 | Outpatient (CLI) | payer MEDICARE, MEDICAID ==
[2025-03-04 18:04] LABS: BASO # 0.1 10^3/uL (0.0-0.2); BASO % 0.4 % (0.0-1.0); CALCIUM LEVEL 9.0 MG/DL (8.3-10.6); CARBON DIOXIDE LEVEL 26.0 MMOL/L (20-31); CHLORIDE LEVEL 108.0 MMOL/L (98-107); CREATININE FOR GFR 1.47 MG/DL (0.55-1.30); EOS # 0.4 10^3/uL (0.0-0.5); EOS % 3.6 % (0.0-3.0); GLOMERULAR FILTRATION RATE 40.6 (>45); LYMPH # 2.9 10^3/uL (1.5-5.0); LYMPH % 26.1 % (24.0-44.0); MONO # 0.6 10^3/uL (0.0-0.8); MONO % 5.7 % (2.0-8.0); NEUTROPHILS # 7.1 10^3/uL (1.5-8.5); NEUTROPHILS % 63.5 % (36.0-66.0); PLATELET COUNT, AUTOMATED 244 10^3/uL (150-450); POTASSIUM SERUM 4.3 MMOL/L (3.5-5.1); SODIUM LEVEL 142.0 MMOL/L (136-145)
== END ==
LOC: M PLALAB 14:44
PROVIDERS: ATTEND Internal Medicine Cardiovascular Disease
DX: I20.0 Unstable angina (principal); I10 Essential (primary) hypertension

== ENCOUNTER 2025-03-13 20:10 | Emergency (ER) | payer MEDICARE, MEDICAID ==
[~2025-03-13] VITALS: Ht 149.9 cm; Wt 110.0 kg
[2025-03-13 22:08] LABS: BASO # 0.1 10^3/uL (0.0-0.2); BASO % 0.4 % (0.0-1.0); EOS # 0.2 10^3/uL (0.0-0.5); EOS % 1.8 % (0.0-3.0); LYMPH # 1.8 10^3/uL (1.5-5.0); LYMPH % 14.2 % (24.0-44.0); MONO # 0.8 10^3/uL (0.0-0.8); MONO % 6.1 % (2.0-8.0); NEUTROPHILS # 9.8 10^3/uL (1.5-8.5); NEUTROPHILS % 76.9 % (36.0-66.0); PLATELET COUNT, AUTOMATED 249 10^3/uL (150-450)
[2025-03-13 22:33] LABS: C REACTIVE PROTEIN QUANTITATIV 0.9 MG/DL (<1.0); CALCIUM LEVEL 9.3 MG/DL (8.3-10.6); CARBON DIOXIDE LEVEL 28.0 MMOL/L (20-31); CHLORIDE LEVEL 103.0 MMOL/L (98-107); CREATININE FOR GFR 1.17 MG/DL (0.55-1.30); GLOMERULAR FILTRATION RATE 53.4 (>45); POTASSIUM SERUM 3.6 MMOL/L (3.5-5.1); SODIUM LEVEL 140.0 MMOL/L (136-145)
[2025-03-14 07:53] LABS: CK-MB VALUE MASS 1.4 NG/ML (<3.6)
[2025-03-14 07:55] LABS: CPK CREATINE PHOSPHOKINASE 35.0 U/L (34-145); MB/CK RELATIVE INDEX 4.0 (< OR =4)
[2025-03-14 07:57] LABS: FREE T4 1.15 NG/DL (0.89-1.76)
[2025-03-14 08:04] LABS: KETONE, URINE AUTO RFX NEGATIVE (NEGATIVE); MUCUS, URINE RFX SMALL (NEGATIVE); NITRITE, URINE AUTO RFX NEGATIVE (NEGATIVE); RBC, URINE AUTO RFX 5 /HPF (0-3); SQUAM EPITHELIAL CELL UR AURFX 1 /HPF (0-6)
[2025-03-14 08:20] LABS: LEUKOCYTE ESTERASE UR AUTO RFX 2+ (NEGATIVE); WBC, URINE AUTO RFX 43 /HPF (0-3)
[2025-03-14 08:58] LABS: CK-MB VALUE MASS 1.6 NG/ML (<3.6); CPK CREATINE PHOSPHOKINASE 63.0 U/L (34-145); MB/CK RELATIVE INDEX 2.53 (< OR =4)
[2025-03-14] MEDS: AUGMENTIN 875 MG TAB PO ONE (10:27)
[2025-03-14 11:06] LABS: CK-MB VALUE MASS 1.5 NG/ML (<3.6)
[2025-03-14 12:07] LABS: CPK CREATINE PHOSPHOKINASE 37.0 U/L (34-145); MB/CK RELATIVE INDEX 4.05 (< OR =4)
[2025-03-14] MEDS ORDERED: [UNRECOGNIZED DRUG - CODE] XX (13:46)
[2025-03-14] MEDS ORDERED: AMOX875T2 PO (13:46)
[2025-03-14 13:52] VITALS: BP 161/75; TEMP 97.2; O2SAT 95
[2025-03-14] MEDS ORDERED: FLUC150T9 PO (13:58)
== END 2025-03-14 14:12 | disposition home or self-care (01) ==
LOC: M ED 20:10
DX: R07.89 Other chest pain (principal); N39.0 Urinary tract infection, site not specified; R94.6 Abnormal results of thyroid function studies; I45.81 Long QT syndrome; E11.9 Type 2 diabetes mellitus without complications; I50.22 Chronic systolic (congestive) heart failure; I11.0 Hypertensive heart disease with heart failure; E78.5 Hyperlipidemia, unspecified; N18.9 Chronic kidney disease, unspecified; Z86.73 Personal history of transient ischemic attack (TIA), and cerebral infarction without residual deficits; Z88.6 Allergy status to analgesic agent; Z88.8 Allergy status to other drugs, medicaments and biological substances; Z79.1 Long term (current) use of non-steroidal anti-inflammatories (NSAID); Z79.51 Long term (current) use of inhaled steroids; Z79.2 Long term (current) use of antibiotics; Z79.4 Long term (current) use of insulin; Z79.84 Long term (current) use of oral hypoglycemic drugs; Z79.899 Other long term (current) drug therapy